=== PATIENT | male | born 1945 | race Caucasian/White ===

== ENCOUNTER 2023-11-29 03:49 | Outpatient (CLI) | payer MEDICARE, SELFPAY ==
[2023-11-29 11:06] LABS: Abs Immature Grans 0.02 10^3/uL (0.0-0.06); Absolute Basophil Count 0.05 10^3/uL (0.0-0.2); Absolute Eosinophil Count 0.12 10^3/uL (0.0-0.7); Absolute Lymphocyte Count 0.72 10^3/uL (1.2-3.4); Absolute Monocyte Count 0.74 10^3/uL (0.1-0.8); Absolute Neutrophil Count 5.09 10^3/uL (1.2-6.7); Basophils % 0.7 %; Eosinophils % 1.8 %; HCT 37.2 % (40.0-50.0); Immature Grans % 0.3 %; Lymphocytes % 10.7 %; MCH 31.5 pg (27.0-33.0); MCHC 32.3 % (32.0-36.0); MCV 98 fL (80-95); MPV 8.7 fL (8.0-11.0); Neutrophils % 75.5 %; Platelet Count 246 10^3/uL (130-400); RBC 3.81 10^6/uL (4.36-5.78); RDW 15.1 % (11.8-14.1); RDW-SD 54.3 fL; WBC 6.74 10^3/uL (4.4-10.8)
[2023-11-29 11:35] LABS: ALT 49 U/L (16-63); AST 32 U/L (15-37); Albumin 3.1 g/dL (3.4-5.0); Alkaline Phosphatase 169 U/L (46-116); Anion Gap 6.2 mmol/L (3-11); BUN 15 mg/dL (7-18); Bilirubin, Total 0.57 mg/dL (0.2-1.0); CO2 31.8 mmol/L (21.0-32.0); CREATININE 0.8 mg/dL (0.70-1.30); Chloride 101 mmol/L (98-107); Estimated GFR 89.47 (mL/min/1.73m2); FREE T4 1.06 ng/dL (0.76-1.46); Glucose 100 mg/dL (74-106); Magnesium 1.6 mg/dL (1.8-2.4); Potassium 3.9 mmol/L (3.5-5.1); Sodium 139 mmol/L (136-145); TSH 0.67 uIU/Ml (0.36-3.74); Total Protein 7.3 g/dL (6.4-8.2)
== END 2023-11-29 03:50 | disposition home or self-care (01) ==
LOC: LBO 03:49
PROVIDERS: Visit Provider Internal Medicine Medical Oncology
DX: Z79.899 Other long term (current) drug therapy (principal); C34.91 Malignant neoplasm of unspecified part of right bronchus or lung
CPT/HCPCS: 36415; 80053; 83735; 84439; 84443; 85025

== ENCOUNTER 2023-12-20 03:13 | Outpatient (CLI) | payer MEDICARE, SELFPAY ==
[2023-12-20 08:57] LABS: Abs Immature Grans 0.04 10^3/uL (0.0-0.06); Absolute Basophil Count 0.07 10^3/uL (0.0-0.2); Absolute Eosinophil Count 0.07 10^3/uL (0.0-0.7); Absolute Lymphocyte Count 0.78 10^3/uL (1.2-3.4); Absolute Neutrophil Count 5.27 10^3/uL (1.2-6.7); HCT 36.6 % (40.0-50.0); HGB 11.5 g/dL (13.5-17.5); Immature Grans % 0.5 %; Lymphocytes % 10.6 %; MCH 31.9 pg (27.0-33.0); MCHC 31.4 % (32.0-36.0); MCV 102 fL (80-95); MPV 8.3 fL (8.0-11.0); Neutrophils % 71.9 %; Platelet Count 275 10^3/uL (130-400); RDW 16.1 % (11.8-14.1); RDW-SD 60.3 fL; WBC 7.33 10^3/uL (4.4-10.8)
[2023-12-20 09:18] LABS: ALT 33 U/L (16-63); AST 29 U/L (15-37); Albumin 3.1 g/dL (3.4-5.0); Alkaline Phosphatase 204 U/L (46-116); BUN 7 mg/dL (7-18); Bilirubin, Total 0.52 mg/dL (0.2-1.0); CREATININE 0.8 mg/dL (0.70-1.30); Calcium 9.2 mg/dL (8.5-10.1); Chloride 102 mmol/L (98-107); Estimated GFR 89.47 (mL/min/1.73m2); FREE T4 0.94 ng/dL (0.76-1.46); Glucose 99 mg/dL (74-106); Potassium 4.3 mmol/L (3.5-5.1); Sodium 139 mmol/L (136-145); TSH 1.54 uIU/Ml (0.36-3.74); Total Protein 7.5 g/dL (6.4-8.2)
== END 2023-12-20 03:14 | disposition home or self-care (01) ==
LOC: LBO 03:14
PROVIDERS: Visit Provider Internal Medicine Medical Oncology
DX: Z79.899 Other long term (current) drug therapy (principal)
CPT/HCPCS: 36415; 80053; 83735; 84439; 84443; 85025

== ENCOUNTER 2024-01-12 08:59 | Outpatient (CLI) | payer MEDICARE, SELFPAY ==
[2024-01-12 08:06] LABS: Abs Immature Grans 0.03 10^3/uL (0.0-0.06); Absolute Basophil Count 0.06 10^3/uL (0.0-0.2); Absolute Eosinophil Count 0.06 10^3/uL (0.0-0.7); Absolute Lymphocyte Count 0.66 10^3/uL (1.2-3.4); Absolute Neutrophil Count 5.72 10^3/uL (1.2-6.7); Basophils % 0.8 %; Eosinophils % 0.8 %; HCT 31.4 % (40.0-50.0); HGB 10.3 g/dL (13.5-17.5); Immature Grans % 0.4 %; Lymphocytes % 8.8 %; MCH 32.8 pg (27.0-33.0); MCHC 32.8 % (32.0-36.0); MCV 100 fL (80-95); MPV 8.5 fL (8.0-11.0); Monocytes % 13.3 %; Neutrophils % 75.9 %; Platelet Count 258 10^3/uL (130-400); RBC 3.14 10^6/uL (4.36-5.78); RDW 16.8 % (11.8-14.1); RDW-SD 60.7 fL; WBC 7.53 10^3/uL (4.4-10.8)
[2024-01-12 08:38] LABS: ALT 23 U/L (16-63); AST 23 U/L (15-37); Albumin 3.1 g/dL (3.4-5.0); Alkaline Phosphatase 193 U/L (46-116); BUN 19 mg/dL (7-18); Bilirubin, Total 0.72 mg/dL (0.2-1.0); CREATININE 0.9 mg/dL (0.70-1.30); Calcium 8.9 mg/dL (8.5-10.1); Chloride 102 mmol/L (98-107); Estimated GFR 86.34 (mL/min/1.73m2); FREE T4 1.15 ng/dL (0.76-1.46); Glucose 113 mg/dL (74-106); Magnesium 1.8 mg/dL (1.8-2.4); Potassium 4.3 mmol/L (3.5-5.1); Sodium 139 mmol/L (136-145); TSH 1.03 uIU/Ml (0.36-3.74); Total Protein 7.6 g/dL (6.4-8.2)
== END 2024-01-12 09:00 | disposition home or self-care (01) ==
LOC: LBO 09:02
PROVIDERS: Visit Provider Nurse Practitioner Family
DX: Z79.899 Other long term (current) drug therapy (principal); C34.91 Malignant neoplasm of unspecified part of right bronchus or lung
CPT/HCPCS: 36415; 80053; 83735; 84439; 84443; 85025

== ENCOUNTER 2024-02-14 02:59 | Outpatient (CLI) | payer MEDICARE, SELFPAY ==
[2024-02-14 08:54] LABS: Abs Immature Grans 0.01 10^3/uL (0.0-0.06); Absolute Basophil Count 0.02 10^3/uL (0.0-0.2); Absolute Eosinophil Count 0.06 10^3/uL (0.0-0.7); Absolute Lymphocyte Count 0.54 10^3/uL (1.2-3.4); Absolute Monocyte Count 0.68 10^3/uL (0.1-0.8); Absolute Neutrophil Count 3.63 10^3/uL (1.2-6.7); Basophils % 0.4 %; Eosinophils % 1.2 %; HCT 30.8 % (40.0-50.0); HGB 9.8 g/dL (13.5-17.5); Immature Grans % 0.2 %; Lymphocytes % 10.9 %; MCH 33.7 pg (27.0-33.0); MCHC 31.8 % (32.0-36.0); MCV 106 fL (80-95); MPV 8.6 fL (8.0-11.0); Monocytes % 13.8 %; Neutrophils % 73.5 %; Platelet Count 210 10^3/uL (130-400); RBC 2.91 10^6/uL (4.36-5.78); RDW 15.6 % (11.8-14.1); RDW-SD 60.8 fL; WBC 4.94 10^3/uL (4.4-10.8)
[2024-02-14 09:09] LABS: ALT 24 U/L (16-63); AST 26 U/L (15-37); Albumin 2.8 g/dL (3.4-5.0); Alkaline Phosphatase 192 U/L (46-116); Anion Gap 4.8 mmol/L (3-11); BUN 20 mg/dL (7-18); Bilirubin, Total 0.39 mg/dL (0.2-1.0); CO2 31.2 mmol/L (21.0-32.0); CREATININE 0.8 mg/dL (0.70-1.30); Calcium 8.8 mg/dL (8.5-10.1); Chloride 99 mmol/L (98-107); Estimated GFR 89.47 (mL/min/1.73m2); Glucose 89 mg/dL (74-106); Magnesium 1.7 mg/dL (1.8-2.4); Potassium 4.2 mmol/L (3.5-5.1); Sodium 135 mmol/L (136-145); Total Protein 7.4 g/dL (6.4-8.2)
== END 2024-02-14 03:00 | disposition home or self-care (01) ==
LOC: LBO 02:59
PROVIDERS: Visit Provider Internal Medicine Medical Oncology
DX: C34.91 Malignant neoplasm of unspecified part of right bronchus or lung (principal)
CPT/HCPCS: 36415; 80053; 83735; 85025

== ENCOUNTER 2024-03-06 02:13 | Outpatient (CLI) | payer MEDICARE, SELFPAY ==
[2024-03-06 12:24] LABS: Abs Immature Grans 0.01 10^3/uL (0.0-0.06); Absolute Basophil Count 0.02 10^3/uL (0.0-0.2); Absolute Eosinophil Count 0.08 10^3/uL (0.0-0.7); Absolute Lymphocyte Count 0.58 10^3/uL (1.2-3.4); Basophils % 0.4 %; Eosinophils % 1.6 %; HCT 30.9 % (40.0-50.0); HGB 10.1 g/dL (13.5-17.5); Immature Grans % 0.2 %; Lymphocytes % 11.9 %; MCH 34.1 pg (27.0-33.0); MCHC 32.7 % (32.0-36.0); MCV 104 fL (80-95); MPV 8.5 fL (8.0-11.0); Monocytes % 12.3 %; Neutrophils % 73.6 %; Platelet Count 220 10^3/uL (130-400); RBC 2.96 10^6/uL (4.36-5.78); RDW-SD 53.5 fL; WBC 4.89 10^3/uL (4.4-10.8)
[2024-03-06 12:51] LABS: ALT 19 U/L (16-63); AST 22 U/L (15-37); Albumin 2.7 g/dL (3.4-5.0); Alkaline Phosphatase 194 U/L (46-116); Anion Gap 3.8 mmol/L (3-11); BUN 16 mg/dL (7-18); Bilirubin, Total 0.51 mg/dL (0.2-1.0); CO2 31.2 mmol/L (21.0-32.0); Calcium 8.5 mg/dL (8.5-10.1); Chloride 98 mmol/L (98-107); Estimated GFR 76.08 (mL/min/1.73m2); FREE T4 1.01 ng/dL (0.76-1.46); Glucose 128 mg/dL (74-106); Magnesium 1.7 mg/dL (1.8-2.4); Potassium 5.1 mmol/L (3.5-5.1); Sodium 133 mmol/L (136-145); TSH 1.34 uIU/mL (0.36-3.74); Total Protein 7.7 g/dL (6.4-8.2)
== END 2024-03-06 02:14 | disposition home or self-care (01) ==
LOC: LBO 02:14
PROVIDERS: Visit Provider Internal Medicine Medical Oncology
DX: Z79.899 Other long term (current) drug therapy (principal); C34.91 Malignant neoplasm of unspecified part of right bronchus or lung
CPT/HCPCS: 36415; 80053; 83735; 84439; 84443; 85025

== ENCOUNTER 2024-03-21 02:11 | Outpatient (CLI) | payer MEDICARE, SELFPAY ==
[2024-03-21 09:35] LABS: Abs Immature Grans 0.03 10^3/uL (0.0-0.06); Absolute Basophil Count 0.04 10^3/uL (0.0-0.2); Absolute Eosinophil Count 0.07 10^3/uL (0.0-0.7); Absolute Lymphocyte Count 0.53 10^3/uL (1.2-3.4); Absolute Neutrophil Count 6.72 10^3/uL (1.2-6.7); Basophils % 0.5 %; Eosinophils % 0.8 %; HCT 32.2 % (40.0-50.0); HGB 10.6 g/dL (13.5-17.5); Immature Grans % 0.4 %; Lymphocytes % 6.4 %; MCH 34.1 pg (27.0-33.0); MCHC 32.9 % (32.0-36.0); MCV 104 fL (80-95); MPV 8.7 fL (8.0-11.0); Monocytes % 10.9 %; Platelet Count 296 10^3/uL (130-400); RBC 3.11 10^6/uL (4.36-5.78); RDW 14.1 % (11.8-14.1); RDW-SD 53.1 fL; WBC 8.29 10^3/uL (4.4-10.8)
[2024-03-21 09:59] LABS: ALT 20 U/L (16-63); AST 24 U/L (15-37); Albumin 2.9 g/dL (3.4-5.0); Alkaline Phosphatase 211 U/L (46-116); Anion Gap 4.6 mmol/L (3-11); BUN 19 mg/dL (7-18); Bilirubin, Total 0.63 mg/dL (0.2-1.0); CO2 31.4 mmol/L (21.0-32.0); Calcium 9.2 mg/dL (8.5-10.1); Chloride 102 mmol/L (98-107); Estimated GFR 76.08 (mL/min/1.73m2); Glucose 119 mg/dL (74-106); Magnesium 1.8 mg/dL (1.8-2.4); Potassium 4.5 mmol/L (3.5-5.1); Sodium 138 mmol/L (136-145); TSH 0.61 uIU/mL (0.36-3.74); Total Protein 7.7 g/dL (6.4-8.2)
== END 2024-03-21 02:12 | disposition home or self-care (01) ==
LOC: LBO 02:11
PROVIDERS: Visit Provider Internal Medicine Medical Oncology
DX: Z79.899 Other long term (current) drug therapy (principal); C34.91 Malignant neoplasm of unspecified part of right bronchus or lung
CPT/HCPCS: 36415; 80053; 83735; 84439; 84443; 85025

== ENCOUNTER 2024-04-10 02:28 | Outpatient (CLI) | payer MEDICARE, SELFPAY ==
[2024-04-10 12:39] LABS: Abs Immature Grans 0.03 10^3/uL (0.0-0.06); Absolute Basophil Count 0.05 10^3/uL (0.0-0.2); Absolute Eosinophil Count 0.09 10^3/uL (0.0-0.7); Absolute Lymphocyte Count 0.55 10^3/uL (1.2-3.4); Absolute Monocyte Count 0.79 10^3/uL (0.1-0.8); Absolute Neutrophil Count 4.27 10^3/uL (1.2-6.7); Basophils % 0.9 %; Eosinophils % 1.6 %; HCT 34.3 % (40.0-50.0); HGB 10.9 g/dL (13.5-17.5); Immature Grans % 0.5 %; Lymphocytes % 9.5 %; MCH 33.5 pg (27.0-33.0); MCHC 31.8 % (32.0-36.0); MCV 106 fL (80-95); MPV 8.1 fL (8.0-11.0); Monocytes % 13.7 %; Neutrophils % 73.8 %; Platelet Count 303 10^3/uL (130-400); RBC 3.25 10^6/uL (4.36-5.78); RDW 13.5 % (11.8-14.1); RDW-SD 53.1 fL; WBC 5.78 10^3/uL (4.4-10.8)
[2024-04-10 12:57] LABS: ALT 18 U/L (16-63); AST 28 U/L (15-37); Albumin 3.1 g/dL (3.4-5.0); Alkaline Phosphatase 199 U/L (46-116); Anion Gap 4.4 mmol/L (3-11); BUN 17 mg/dL (7-18); Bilirubin, Total 0.67 mg/dL (0.2-1.0); CO2 31.6 mmol/L (21.0-32.0); Calcium 8.9 mg/dL (8.5-10.1); Chloride 99 mmol/L (98-107); Estimated GFR 76.08 (mL/min/1.73m2); Glucose 114 mg/dL (74-106); Magnesium 1.9 mg/dL (1.8-2.4); Potassium 4.8 mmol/L (3.5-5.1); Sodium 135 mmol/L (136-145); Total Protein 7.9 g/dL (6.4-8.2)
[2024-04-10 13:10] LABS: FREE T4 1.02 ng/dL (0.76-1.46); TSH 1.05 uIU/mL (0.36-3.74)
== END 2024-04-10 02:29 | disposition home or self-care (01) ==
LOC: LBO 02:28
PROVIDERS: Nurse Practitioner Family; Visit Provider Internal Medicine Medical Oncology
DX: C34.91 Malignant neoplasm of unspecified part of right bronchus or lung
CPT/HCPCS: 36415; 80053; 83735; 84439; 84443; 85025

== ENCOUNTER 2024-05-02 03:00 | Outpatient (CLI) | payer MEDICARE, SELFPAY ==
[2024-05-02 10:07] LABS: Abs Immature Grans 0.02 10^3/uL (0.0-0.06); Absolute Basophil Count 0.03 10^3/uL (0.0-0.2); Absolute Lymphocyte Count 0.64 10^3/uL (1.2-3.4); Absolute Monocyte Count 0.83 10^3/uL (0.1-0.8); Absolute Neutrophil Count 5.62 10^3/uL (1.2-6.7); Basophils % 0.4 %; Eosinophils % 1.4 %; HGB 10.2 g/dL (13.5-17.5); Immature Grans % 0.3 %; Lymphocytes % 8.8 %; MCH 32.6 pg (27.0-33.0); MCHC 31.9 % (32.0-36.0); MCV 102 fL (80-95); MPV 8.2 fL (8.0-11.0); Monocytes % 11.5 %; Neutrophils % 77.6 %; Platelet Count 260 10^3/uL (130-400); RBC 3.13 10^6/uL (4.36-5.78); RDW 13.6 % (11.8-14.1); RDW-SD 50.7 fL; WBC 7.24 10^3/uL (4.4-10.8)
[2024-05-02 10:40] LABS: ALT 16 U/L (16-63); AST 22 U/L (15-37); Albumin 2.8 g/dL (3.4-5.0); Alkaline Phosphatase 179 U/L (46-116); Anion Gap 5.7 mmol/L (3-11); BUN 16 mg/dL (7-18); Bilirubin, Total 0.54 mg/dL (0.2-1.0); CO2 31.3 mmol/L (21.0-32.0); Calcium 8.4 mg/dL (8.5-10.1); Chloride 101 mmol/L (98-107); Estimated GFR 76.08 (mL/min/1.73m2); Glucose 123 mg/dL (74-106); Magnesium 1.8 mg/dL (1.8-2.4); Potassium 4.8 mmol/L (3.5-5.1); Sodium 138 mmol/L (136-145); TSH 0.83 uIU/mL (0.36-3.74); Total Protein 7.3 g/dL (6.4-8.2)
== END 2024-05-02 03:01 | disposition home or self-care (01) ==
LOC: LBO 03:00
PROVIDERS: Visit Provider Internal Medicine Medical Oncology
DX: Z79.899 Other long term (current) drug therapy (principal); C34.91 Malignant neoplasm of unspecified part of right bronchus or lung
CPT/HCPCS: 36415; 80053; 83735; 84439; 84443; 85025

== ENCOUNTER 2024-05-23 02:58 | Outpatient (CLI) | payer MEDICARE, SELFPAY ==
[2024-05-23 10:00] LABS: Abs Immature Grans 0.05 10^3/uL (0.0-0.06); Absolute Basophil Count 0.02 10^3/uL (0.0-0.2); Absolute Eosinophil Count 0.03 10^3/uL (0.0-0.7); Absolute Lymphocyte Count 0.48 10^3/uL (1.2-3.4); Basophils % 0.2 %; Eosinophils % 0.3 %; HCT 36.2 % (40.0-50.0); HGB 11.7 g/dL (13.5-17.5); Immature Grans % 0.5 %; Lymphocytes % 4.4 %; MCH 32.5 pg (27.0-33.0); MCHC 32.3 % (32.0-36.0); MCV 101 fL (80-95); MPV 8.2 fL (8.0-11.0); Monocytes % 3.5 %; Neutrophils % 91.1 %; Platelet Count 273 10^3/uL (130-400); RDW 13.9 % (11.8-14.1); RDW-SD 50.6 fL; WBC 10.99 10^3/uL (4.4-10.8)
[2024-05-23 10:02] LABS: Absolute Monocyte Count 0.38 10^3/uL (0.1-0.8); Absolute Neutrophil Count 10.01 10^3/uL (1.2-6.7)
[2024-05-23 10:23] LABS: ALT 24 U/L (16-63); AST 25 U/L (15-37); Alkaline Phosphatase 197 U/L (46-116); Anion Gap 0.8 mmol/L (3-11); BUN 20 mg/dL (7-18); Bilirubin, Total 0.88 mg/dL (0.2-1.0); CO2 36.2 mmol/L (21.0-32.0); CREATININE 1.1 mg/dL (0.70-1.30); Calcium 9.1 mg/dL (8.5-10.1); Chloride 99 mmol/L (98-107); Estimated GFR 67.86 (mL/min/1.73m2); FREE T4 1.12 ng/dL (0.76-1.46); Glucose 120 mg/dL (74-106); Magnesium 1.7 mg/dL (1.8-2.4); Potassium 5.1 mmol/L (3.5-5.1); Sodium 136 mmol/L (136-145); TSH 0.83 uIU/mL (0.36-3.74); Total Protein 7.6 g/dL (6.4-8.2)
[2024-05-23 18:13] LABS: Bilirubin Negative (Negative); Blood Trace-lysed (Negative); Clarity Clear (Clear); Glucose Negative (Negative); Ketones Negative (Negative); Leukocyte Esterase Moderate (Negative); Nitrite Negative (Negative); Urobilinogen 0.2 mg/dL (Up to 0.2)
[2024-05-23 18:24] LABS: Bacteria Moderate HPF (Negative); C & S Indicated? Yes; Casts Negative LPF (Negative); Crystals Negative HPF (Negative); Epithelial Cells Rare HPF (Negative); Mucus Negative (Negative); Other Cells Negative (Negative); RBC 0-2 HPF (0-2); WBC >50 HPF (0-5)
== END 2024-05-23 02:59 | disposition home or self-care (01) ==
LOC: LBO 02:58
PROVIDERS: Visit Provider Internal Medicine Medical Oncology
DX: Z79.899 Other long term (current) drug therapy (principal); C34.91 Malignant neoplasm of unspecified part of right bronchus or lung
CPT/HCPCS: 36415; 80053; 87077; 81003; 81015; 83735; 84439; 84443; 85025; 87086; 87186

== ENCOUNTER 2024-06-20 01:08 | Outpatient (CLI) | payer MEDICARE, SELFPAY ==
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
--- OUTSIDE RECORDS SUMMARY | 2024-06-20 01:23 | XMS_ITS | Encounter Summary ---
Author Organization [place] [address] Care Team Providers Care Registered Veterinary Technician Name Role Phone Kadi Lane Primary Care Provider [phone] Encounter Details Date Type Department Care Team (Late st Contact Info) Description 05/05/2024 12:35 PM EST Ancillary Procedure Radiology Library at [facility] [place] [id number] Landen Goodman MD [address] [place] [id number] Social History Tobacco Use Types Packs/Day Years Used Date Smoking Tobacco: Former Cigarettes 2 32 1 822 - 1347 Smokeless Tobacco: Never Alcohol Use Standard Drinks/Week [...] PM EDT documented as of this encounter Plan of Treatment Upcoming Encounters Date Type Department Care Team (Late st Contact Info) Description 06/20/2024 10:00 AM EST Office Visit Hematology/Oncology at [address] [phone] Lia Barber APRN [address] [place] [address] DR HEMATOLOGY AND ONCOLOGY [place], [place] [address] 06/20/2024 10:30 AM EST Infusion Hematology Oncology at [address] [phone] 07/04/2024 11:00 AM EST Office Visit Hematology/Oncology at [address] [phone] Lia Barber APRN [address] [place] [address] DR HEMATOLOGY AND ONCOLOGY [place] [id number] 07/04/2024 11:30 AM EST Infusion Hematology Oncology at [address] [phone] documented as of this encounter Procedures Procedure Name Priority Date/Time Associated Diagnosis Comments FILM LIBRARY STORAGE ONLY CT CHEST Routine 05/05/2024 12:35 PM EST documented in this encounter Results * Film Library- Storage Only CT Chest (05/05/2024 12:35 PM EST) 05/14/2024 8:35 PM EST Narrative [facility] - 05/14/2024 8:35 PM EST This exam is auto-finalizing. It's purpose is for storage only. Landen Goodman MD IMG FILM LIBRARY ORD ERABLES Performing Organization Address City/State/[facility] Co de Phone Number [place], [place] documented in this encounter Visit Diagnoses Not on filedocumented in this encounter Care Teams Registered Veterinary Technician Relationship Specialty Start Date End Date Kadi Lane PA [address] [place] [address] PCP - General Family Medicine 07/28/16 documented as of this encounter
--- OUTSIDE RECORDS SUMMARY | 2024-06-20 01:23 | XMS_ITS | Encounter Summary ---
[facility] [place] [address] Care Team Providers Care Airline Hostess Name Role Phone Kadi Lane Primary Care Provider [phone] Encounter Details Date Type Department Care Team (Latest Contact Info) Description 05/23/2024 Travel Social History Tobacco Use Types Packs/Day Years Used Date Smoking Tobacco: Former Cigarettes 2 32 1 956 - 1987 Smokeless Tobacco: Never Alcohol Use [...] place to sleep or slept in a snf (including now)? No 08/14/2022 DH IPV Inpatient [...] 10:00 AM EST Office Visit Hematology/Oncology at [address] [phone] Lia Barber [address] HEMATOLOGY AND ONCOLOGY [place], [place] [address] 06/20/2024 10:30 AM EST Infusion Hematology Oncology at [address] [phone] 07/04/2024 11:00 AM EST Office Visit Hematology/Oncology at [address] [phone] HEMATOLOGY AND ONCOLOGY [place], [place] [address] 07/04/2024 11:30 AM EST Infusion Hematology Oncology at [address] [phone] documented as of this encounter Visit Diagnoses Not on filedocumented in this encounter Care Teams Airline Hostess Relationship Specialty Start Date End Date Kadi Lane PA [address] [place] [address] PCP - General Family Medicine 07/28/16 documented as of this encounter
--- OUTSIDE RECORDS SUMMARY | 2024-06-20 01:23 | XMS_ITS | Encounter Summary ---
Author [facility] [place] [address] Care Team Providers Care It Infrastructure Specialist Name Role Phone Kadi Lane Primary Care Provider [phone] Encounter Details Date Type Department Care Team (Latest Contact Info) Description 05/02/2024 Travel Social History Tobacco Use Types Packs/Day [...] place to sleep or slept in a group home (including now)? No 08/14/2022 DH IPV Inpatient [...] 10:00 AM EST Office Visit Hematology/Oncology at [address] [phone] Lia Barber [address] HEMATOLOGY AND ONCOLOGY [place], [place] [address] 06/20/2024 10:30 AM EST Infusion Hematology Oncology at [address] [phone] 07/04/2024 11:00 AM EST Office Visit Hematology/Oncology at [address] [phone] HEMATOLOGY AND ONCOLOGY [place], [place] [address] 07/04/2024 11:30 AM EST Infusion Hematology Oncology at [address] [phone] documented as of this encounter Visit Diagnoses Not on filedocumented in this encounter Care Teams It Infrastructure Specialist Relationship Specialty Start Date End Date Kadi Lane PA [address] [place] [address] PCP - General Family Medicine 07/28/16 documented as of this encounter
--- OUTSIDE RECORDS SUMMARY | 2024-06-20 01:23 | XMS_ITS | Encounter Summary ---
Author Organization [facility] [place] [address] Care Team Providers Care Roll Plugger Name Role Phone Kadi Lane Primary Care Provider [phone] Encounter Details Date Type Department Care Team (Late st Contact Info) Description 05/08/2024 Telephone Hematology Oncology at [address] [phone] Corry Fowler, RN Social History Tobacco Use Types Packs/Day Years Used Date Smoking Tobacco: Former Cigarettes 2 32 1 016 - 1987 Smokeless Tobacco: Never Alcohol Use [...] place to sleep or slept in a nursing home (including now)? No 08/14/2022 DH IPV [...] encounter Miscellaneous Notes * Telephone Encounter - Corry Fowler RN - 05/08/2024 2:22 PM EST Marco Antonio is feeling better now. Nothing was found in the ED. No symptoms now. He will have his PET Wednesday and visit with us on 05/23/24. * Telephone Encounter - Corry Fowler RN - 05/08/2024 2:20 PM EST ----- Message from Stephanie Munoz RN sent at 05/05/2024 11:18 AM EST ----- Regarding: call pt Pt went to [facility] 05/05 for SOB, please call and check on status, thanks! documented in this encounter Plan of Treatment Upcoming Encounters Date Type Department Care Team (Late st Contact Info) Description 06/20/2024 10:00 AM EST Office Visit Hematology/Oncology at [address] [phone] Lia Barber[address] HEMATOLOGY AND ONCOLOGY [place], [place] [address] 06/20/2024 10:30 AM EST Infusion Hematology Oncology at [address] [phone] 07/04/2024 11:00 AM EST Office Visit Hematology/Oncology at [address] [phone] Lia [address] HEMATOLOGY AND ONCOLOGY [place], [place] [id number] 07/04/2024 11:30 AM EST Infusion Hematology Oncology at [address] [phone] documented as of this encounter Visit Diagnoses Not on filedocumented in this encounter Care Teams Roll Plugger Relationship Specialty Start Date End Date Kadi [place] [address] PCP - General Family Medicine 07/28/16 documented as of this encounter
--- OUTSIDE RECORDS SUMMARY | 2024-06-20 01:23 | XMS_ITS | Encounter Summary ---
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 No 08/14/2022 DH IPV Inpatient [...] PM EDT documented as of this encounter Last Filed Vital Signs Vital Sign Reading Time Taken Comments Blood Pressure 130/61 05/02/2024 10:51 AM EST Pulse 61 05/02/2024 10:51 AM EST Temperature 36.6 ??C (97.9 ??F) 05/02/2024 10:[address] Respiratory Rate 17 05/02/2024 10:51 AM EST Oxygen Saturation 98% 05/02/2024 10:51 AM EST Inhaled Oxygen Concentration - - Weight 56.2 kg (124 lb) 05/02/2024 10:51 AM EST Height 168.9 cm (5' 6.5) 05/02/2024 10:51 AM ES T Body Mass Index 19.72 05/02/2024 10:51 AM EST documented in this encounter Progress Notes * Elisabeth Lia A, DEEDEE - 05/02/2024 11:00 AM EST Images from the original note were not included. Thoracic Oncology [facility] [place] [phone] Marco Antonio Xiong is being seen for the evaluation of lung cancer. Assessment & Plan: Marco Antonio Xiong is a 78 y.o. 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 Evaluation at thattime did not identify malignancy and he was treated with abx and close observation but subsequent evaluation showed increasing size of the mass and biopsy ultimately identified squamous cell carcinoma of the lung. A subsequent preoperative stress test showed apical ischemia and diminished ejection fraction of 39%. Based on size he has a T2b stage IIa squamous cell carcinoma without joey involvement and due to cardiac issues he was ultimately treated with stereotactic body radiation 50 Sim in 5 fractions ending 10/19/22. In August 2023 he was noted to have a worsening cough. Therefore further evaluation of radiographically stable adenopathy was pursued with an endobronchial ultrasound on 09/16/2023. This identified recurrent metastatic squamous cell carcinoma in level 4R (TPS 5%), and level 7. Level 4L was uninvolved.Sampling of the pleural fluid identified atypical cells but no clearly malignant cells were identified. PET scan from 10/08/23 identified FDG avid adenopathy in the lower paratracheal, subcarinal, prevascular and bilateral francy. In discussion with radiation oncology given the bilateral disease and overall extent this was not felt to be curable and therefore he was treated with radiation to help palliate his cough and respiratory symptoms. Following palliative radiation (30 Gy in 10 fractions) to the mediastinum he began palliative intent treatment with carboplatin/paclitaxel/pembrolizumab on 11.29.23 with upfront dose reductions. Plan: CT scan from 03/01/24 not compared to the most recent imaging on the read, however on review appears to have continued response to treatment which is reassuring. A PET scan at some point may behelpful in clarifying post-treatment changes with question of active disease. - Paclitaxel was omitted with C3 and he did much better, his neuropathy has resolved, and he would prefer to continue to omit it. - Labs and toxicities assessed and acceptable for ongoing treatment. - RTC in 3 weeks with PET prior, already scheduled for 05/12/24 Lia Barber, DEEDEE 05/02/2024 Medical Oncology & Hematology [facility] CC: ADRIANO Sheriff HPI/Interval History/Subjective: Last seen 04/10/2024 Accompanied by his . Breathing well, did not worsen after immunotherapy. Mild cough that comes and goes, this is unchanged. Occasionally uses guaifenesin with good effect. No fevers No new rashes, changes in breathing, new or different cough, diarrhea. Neuropathy has improved since stopping the taxol Social History/Support Network: Home situation: . Lives 2 hours away. 3 chuildren. 5 grandsons and 2 great grandauhters Employment: Retired. [employer]. Now likes to be outdoorrs fishing. [place]. Tobacco use: Quit in 1986. 2 ppd at the time. [id number] history Alcohol use: uit then as well Drug use: Financial Distress: Social Determinants of Health Financial Resource Strain: Low Risk (08/14/2022) Overall Financial Resource Strain (CARDIA) Difficulty of Paying Living Expenses: Not very hard Food Insecurity: No Food Insecurity (08/14/2022) Hunger Vital Sign Worried About Running Out of Food in the Last Year: Never true Ran Out of Food in the Last Year: Never true Transportation Needs: No Transportation Needs (08/14/2022) PRAPARE - Transportation Lack of Transportation (Medical): No Lack of Transportation (Non-Medical): No Physical Activity: Not on file Housing Stability: Low Risk (08/14/2022) Housing Stability Vital Sign Unable to Pay for Housing in the Last Year: No Number of Places Lived in the Last Year: 1 Unstable Housing in the Last Year: No Intimate Partner Violence: Patient Unable To Answer (08/28/2022) DH IPV Inpatient Questions Prevent Contact with Others: unable to answer (comment required) Feels Threatened by Someone: unable to answer (comment required) Feels Unsafe at Home: unable to answer (comment required) Physical Signs of Abuse Present: Not on file Utilities: Not on file Health Literacy: Not on file service: No Family History: Mother- Dscd Malignant hyperthremia Father- Dscd Cause unknown No known history of lung cancer Family History Problem Relation Age of Onset Malignant Hyperthermia Mother Oncology Overview: Cancer Staging Non-small cell lung cancer Staging form: Lung, AJCC 8th Edition - Clinical: Stage IIA (cT2b, cN0, cM0) - Signed by Rafael Pope MD on 08/12/2022 Presentation: Staging/PreTx Eval: 02.23.[address] Chest without contrast 1. Stable pleural-based mass at the right lung base. 2. Stable moderate right pleural effusion with thick peripheral rind. 3. Stable calcified bilateral pleural plaques, consistent with asbestos related pleural disease. 02.25.22 CT Chest w/o contrast- Bronchoscopy EBUS-TBNA and ashwin bornch The trachea, bilateral mainstem bronchi, and the bilateral segmental bronchi were all visualized and no obvious endobronchial lesions were noted, though there were moderate secretions, primarily in the RLL that were therapeutically aspirated. The bronchoscope was removed. The [employer] robotic systemwas used for pre-procedure planning, including 3D rendering with image post-processing on an independent workstation. The [employer] robotic system was then used for intra- procedure navigation to the RLL nodule. Under radial EBUS and fluoro control TBNA, TBBx and BAL were obtained. The robotic bronchoscope was removed and the EBUS scope inserted. EBUS confirmed the presence of an enlarged node at station 11R, there were no other joey stations with nodes > 5mm. Multiple passes with EBUS TBNA were performed. Following this, hemostasis was confirmed, the procedure was terminated and the bronchoscope was withdrawn. 02.25.22 CT Neck 06.19.22 CT Chest FINDINGS: Pulmonary parenchyma: RIGHT lower lobe pleural-based 5.4 x 3.3 x 4.9 cm peripherally enhancing consolidative mass with regions of central hypodensity may reflect areas of necrosis. The mass contacts the right hemidiaphragm. Bilateral scarring at the bases and the lingula. Unchanged RIGHT upper lobe calcified granuloma. Scattered centrilobular emphysematous disease. Airways: Widely patent. Pleura: Unchanged moderate RIGHT pleural effusion with peripheral enhancement. No LEFT pleural effusion. Bilateral dense pleural plaques, unchanged. Lymph nodes: No lymphadenopathy. No significant CT correlate to FDG avid bilateral hilar lymph nodes from prior PET/CT 07.02.22 PET scan 07.21.22 CT Lung biopsy and thora 08.10.22 MRI Brain - no metastatic disease Pathology: Ashwin Bronch A - Lung, right lower lobe, biopsy: - Benign lung parenchyma and bronchial tissue. 11R- negative for malignancy, lymphocytes identified Pleural fluid (thoracentesis): The sample consists almost entirely of abundant, amorphous/acellular material. No malignant cells are seen. Recommend clinical correlation. 07/21/22 Lung biopsy Tissue: Lung, right lower lobe mass, biopsy Diagnosis: Squamous cell carcinoma Tumor Proportion Score (TPS): % Expression: 5% Surgical Pathology DIAGNOSIS Lung, right lower lobe mass, biopsy: Squamous cell carcinoma 09/16/23 Bronchoscopy EBUS-TBNA ADDENDUM DISCUSSION PD-L1 Immunohistochemistry Study Tissue: Lymph node, 4R (EBUS-guided FNA) Diagnosis: Metastatic squamous cell carcinoma Tumor Proportion Score (TPS): 5% DIAGNOSIS Positive for Malignancy DISCUSSION Metastatic squamous cell carcinoma. Cell block was examined. See note. Note: Molecular Data: NA Treatment Course: 10.19.22 SBRT in 5 fractions 10.08.23 PET scan with recurrence in the mediastinum. . 1. Masslike opacity in the right lower lobe appears less masslike and more fibrotic and atelectatic, compatible with interval radiation. Residual uptake may be related to inflammation or residual disease. This can be reassessed on follow-up. 2. Multiple new FDG-avid lymph nodes in the mediastinum, representing metastatic adenopathy. 11.29.23 Started carboplatin/paclitaxel/pembrolizumab 12.27.23 CT restaging after 2 cycles. Note, outside read does not include comparison. Response noted. 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 Pertinent details are noted above. Pertinent positives and negative from the Review of Systems are as summarized above in the HPI. Physical Exam: Wt Readings from Last 3 Encounters: 05/02/24 56.2 kg (124 lb) 04/10/24 55.9 kg (123 lb 3.2 oz) 03/21/24 55.7 kg (122 lb 12.8 oz) Temp Readings from Last 3 Encounters: 05/02/24 36.6 ??C (97.9 ??F) (Temporal) 04/10/24 36.2 ??C (97.1 ??F) (Temporal) 03/21/24 36.2 ??C (97.1 ??F) (Temporal) BP Readings from Last 3 Encounters: 05/02/24 130/61 04/10/24 133/60 03/21/24 136/82 Pulse Readings from Last 3 Encounters: 05/02/24 61 04/10/24 72 03/21/24 82 Body surface area is 1.62 meters squared. Wt Readings from Last 3 Encounters: 05/02/24 56.2 kg (124 lb) 04/10/24 55.9 kg (123 lb 3.2 oz) 03/21/24 55.7 kg (122 lb 12.8 oz) KPS Score ECOG Grade Definition 90-100 0 Fully active, able to carry on all pre-disease performance without restriction X 70-80 1 Restricted in physically strenuous activity but ambulatory and able to carry out work of a light or sedentary nature, e.g., light house work, office work 50-60 2 Ambulatory and capable of all selfcare but unable to carry out any work activities; up and about more than 50% of waking hours 30-40 3 Capable of only limited selfcare; confined to bed or chair more than 50% of waking hours 10-20 4 Completely disabled; cannot carry on any selfcare; totally confined to bed or chair Constitutional: Oriented to person, place, and time. No distress. Appears well-developed. HENT: Mouth/Throat: No oral exudates or lesions Eyes: No conjunctival icterus. Cardiovascular: Normal rate and regular rhythm. Exam reveals no friction rub. No murmur heard. Pulmonary/Chest: Effort normal. No stridor. No respiratory distress. No wheezes. No rales. Abdominal: Soft. No distension. No tenderness.No rebound. Musculoskeletal: Normal range of motion. No edema. Lymphadenopathy: No cervical adenopathy. Neurological: Alert and oriented to person, place, and time. CN are grossly intact and non-focal. Skin: Skin is warm and dry. No rash noted. No erythema. Psychiatric: Normal mood and affect. Behavior is normal. Thought content normal. Review of Laboratory Data: 05.02.24 WBC 7.24, H/H 10.2/32.0, plt 260,000, ANC 5620, Na 138, K 4.8, Cl 101, CO2 31.3, BUN 16, Creat 1.0,glucose 123, Ca 8.4, amg 1.8, t bili 0.54, AST 22, ALT 16, alk phos 179, t protein 7.3, albumin 2.8, free T4 1.00 04.10.24 White blood cell count 5.78 hemoglobin 10.9 platelet count 303,000 absolute neutrophil count 4.27 Sodium 135 potassium 4.8 chloride 99 BUN 17 creatinine 1.0 which is stable glucose 114 calcium 8.9 magnesium 1.9 total bilirubin 0.67 AST 28 ALT 18 alk phos 1 9 down from 211 albumin 3.1 improved from 2.9 TSH within normal limits at 1.05 Free T41.02 03/21/24 WBC 8.29, platelets 296,000, ANC 6720,hemoglobin 10.6, hematocrit 32.2% NA 138, K+ 4.5, chloride 102, CO2 31.4, BUN 19, creatinine 1.0, glucose 119, calcium 9.2, mag 1.8, T. bili 0.63, AST 24, ALT 20, alk phos 211, T protein 7.7, albumin 2.9, TSH 0.61, free T4 1.10 03/06/24 WBC 4.89, H/H 10.1/30.9, plt 220,000, ANC 3600, Na 133, K 5.1, Cl 98, CO2 31.2, BUN 16, Creat 1.0, glucose 128, Ca 8.5, Mag 1.7, t bili 0.51, AST 22, ALT 19, alk phos 194, t protein 7.7, albumin 2.7,TSH 1.34, Free T4 1.01 02/14/24 WBC 4.94, Hgb 9.8, HCT 30.8, platelets 210,000, ANC 3630, sodium 135, K+ 4.2, CL 99, CO2 31.2, BUN 20, creatinine 0.8, glucose 89, calcium 8.8, magnesium 1.7, T. bili 0.39, AST 26, ALT 24, alk phos 192, total protein 7.4, albumin 2.8 01/12/24 WBC 7.53, H/H 10.3/31.4, plt 258,000, ANC 5720, Na 139, K 4.3, Cl 102, CO2 28.0, BUN 19, Creat 0.9,glucose 113, Ca 8.9, Mag 1.8, t bili 0.72, AST 23, ALT 23, alk phos 193, t protein 7.6, albumin 3.1, TSH 1.03, Free T4 1.15 12/20/2023 Sodium 139 potassium 4.3 chloride 102 BUN 7 creatinine 0.8 glucose 99 calcium 9.2 magnesium 2.0 total bilirubin 0.52 AST 29 ALT 33 alk phos 204 albumin 3.1 which is stable TSH 1.54 Free T40.94 White blood cell count 7.33 hemoglobin 11.5 platelet count 275,000 with an absolute neutrophil count of 5.27 Review of Imaging Data: As above Review of Pathology Data: As above, no new data documented in this encounter Plan of Treatment Upcoming Encounters Date Type Department Care Team (Late st Contact Info) Description 06/20/2024 10:00 AM EST Office Visit Hematology/Oncology at [address] [phone] Lia Barber APRN [address] [place] [address] [place] [address] 06/20/2024 10:30 AM EST Infusion Hematology Oncology at [address] [phone] 07/04/2024 11:00 AM EST Office Visit Hematology/Oncology at [address] [phone] Lia Barber ACID EXTRACTOR [address] [place] [address] DR [place] [address] 07/04/2024 11:30 AM EST Infusion Hematology Oncology at [address] [phone] documented as of this encounter Visit Diagnoses Diagnosis 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
--- OUTSIDE RECORDS SUMMARY | 2024-06-20 01:23 | XMS_ITS | Encounter Summary ---
Author Organization [facility] [address] Care Team Providers Care Energy Analyst Name Role Phone Kadi Lane Primary Care Provider [phone] Encounter Details Date Type Department Care Team (Latest Contact Info) Description 04/10/2024 Travel Social History Tobacco Use Types Packs/Day [...] place to sleep or slept in a long term (including now)? No 08/14/2022 DH IPV Inpatient [...] 10:00 AM EST Office Visit Hematology/Oncology at [address] [phone] Lia Barber [address] HEMATOLOGY AND ONCOLOGY [place], [place] [address] 06/20/2024 10:30 AM EST Infusion Hematology Oncology at [address] [phone] 07/04/2024 11:00 AM EST Office Visit Hematology/Oncology at [address] [phone] HEMATOLOGY AND ONCOLOGY [place], [place] [address] 07/04/2024 11:30 AM EST Infusion Hematology Oncology at [address] [phone] documented as of this encounter Visit Diagnoses Not on filedocumented in this encounter Care Teams Energy Analyst Relationship Specialty Start Date End Date Kadi Lane PA [address] [place] [address] PCP - General Family Medicine 07/28/16 documented as of this encounter
--- OUTSIDE RECORDS SUMMARY | 2024-06-20 01:23 | XMS_ITS ---
[place] [address] Care Team Providers Care Trading Floor Operator Name Role Phone Kadi Lane Primary Care Provider [phone] Active Problems Patient Care Coordination No te Formatting of this note migh t be different from the original. Denita Keating- Nurse in the family!! 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/25/2022 [facility] NON[facility]ALL CELL [facility]G [facility]CER - CARBOplatin / PACLitaxeL / PEMBROLIZUMAB* Plan Start Date:11/29/2023 Plan Provider:Zach Vincent MD Linked Problems High risk medication useNon- small cell cancer of right lung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 Treatment Medications Current Day (Day 1 , Cycle 8 - Planned for 05/23/2024) Next Day (Day 1, Cycle 9 - Planned for 06/13/2024) CARBOplatin (Paraplatin) in 150 mL infusionPACLitaxeL (Taxol) in Non-PVC sodium chloride 0.9% 500 mL infusionpembrolizumab (Keytruda) in sodium chloride 0.9% 100 mL infusion pembrolizumab (Keytruda) 200 mg in sodium chloride 0.9% 108 mL infusion pembrolizumab (Keytruda) 200 mg in sodium chloride 0.9% 108 mL infusion Past Plans ADULT TREATMENT Plan Name Start Date Discontinue Date Treatment Medications Discontinue Reason Plan Provider Cycles [facility] AMB ONC NONSMALL CELL LUNG CANCER - CARBOplatin / PACLitaxeL ALBUMIN-BOUND (ABRAXANE) (100 mg/m2 (Days 1, 8 & 15) every 21 days) / PEMBROLIZUMAB 11/29/19 24 11/29/2023 CARBOplatin (Paraplatin) in 150 mL infusionPACLitaxeL albumin-bound (Abraxane)pembroliz umab (Keytruda) Recon Soln Patient is No Longer Covered by Insurance Zach Vincent MD Treatment not started Radiation Treatments * No radiation treatments are documented for this patient in [facility]. Treatments may have been administered in another system. Lifetime Dose Tracking * Chemical Lifetime Dose Automatic Entry Manual Entr y DLP (Dose Length Product) 770 mGy-cm 770 mGy-cm 0 mGy-cm CTDI (CT Dose Index) Min 23.13 mGy 23.13 mGy 0 m Gy CTDI (CT Dose Index) Max 23.13 mGy 23.13 mGy 0 m Gy
--- OUTSIDE RECORDS SUMMARY | 2024-06-20 01:23 | XMS_ITS | Clinical Summary ---
Author Organization [facility] [place] [address] Care Team Providers Care General Partner Name Role Phone Kadi Lane Primary Care Provider [phone] Allergies No known active allergies Medications Medication Sig Dispensed Refills Start Date End Date Status aspirin EC 81 mg Tablet, Delayed Release (E.C.) Take 81 mg by mouth daily. Active multivitamin (THERAGRAN) Tablet Take 1 tablet by mouth daily. Active nitroGLYcerin (Nitrostat) 0.4 mg Tablet, SublingualIndicatio ns:Chest pain, unspecified type Place 1 tablet under the tongue every 5 minutes as needed for Chest pain. 30 tablet 3 07/07/2022 Active Additional Information Patient not taking.Reported on 11/08/2023 clopidogreL (Plavix) 75 mg tablet Take 1 tablet by mouth daily. 90 tablet 3 08/28/2022 Active benzonatate (Tessalon) 100 mg capsule Take 1 capsule by mouth 3 times daily as needed for Cough. 30 tablet 08/25/2023 Active omeprazole (PriLOSEC) [address] capsule Take 1 capsule by mouth daily. 30 capsule 11 09/01/2023 08/31/2024 Active HYDROcodone-homatro pine (HYCODAN) 5-1.5 mg/5 mL Syrup Take 5 mLs by mouth 4 times daily as needed. 120 mL 10/13/2023 Active atorvastatin (Lipitor) 40 mg tabletIndications:C oronary artery disease, unspecified vessel or lesion type, unspecified whether angina present, unspecified whether tat[place]k or transplanted heart Take 1 tablet by mouth nightly. 90 tablet 3 10/21/2023 Active emollient combination no.111 (REMEDY PHYTOPLEX MOISTURIZER TOP) Apply topically. Phytoplex Remedy Moisturizer: Apply to area of radiation twice a day but no less than 2 hours before a treatment. Active lidocaine (Xylocaine) 2 % Solution Take 5-10 mLs by mouth every 3 hours as needed for Pain. 300 mL 3 11/08/2023 Active prochlorperazine (Compazine) 10 mg tablet Take 1 tablet by mouth every 6 hours as needed for Nausea. 30 tablet 3 11/08/2023 Active morphine 10 mg/5 mL Solution Take 5 mLs by mouth every 4 hours as needed for Pain. 100 mL 11/10/2023 Active Additional Information Patient not taking.Reported on 12/20/2023 metoprolol succinate XL (Toprol-XL) 25 mg ER 24 hr tabletIndications:C hest pain, unspecified type TAKE 1/2 TABLET EVERY DAY 90 tablet 3 11/15/2023 Active albuteroL 90 mcg/actuation inhaler (HFA)Indications:CO PD with exacerbation Inhale 2 puffs into the lungs every 4 hours as needed for Wheezing. Use with Spacer 1 each 1 03/27/2024 Active predniSONE (Deltasone) 20 mg tabletIndications:C OPD with exacerbation Take 1 tablet by mouth daily. 20 tablet 05/15/2024 Active fluconazole (Diflucan) 200 mg tabletIndications:O ral candidiasis Take 1 tablet by mouth daily. 7 tablet 05/23/2024 Active guaiFENesin (Robitussin) 20 mg/mL LiquidIndications:C hronic cough Take 20 mLs by mouth 3 times daily as needed for Cough. 500 mL 05/26/2024 Active Active Problems Patient Care Coordination No te Formatting of this note migh t be different from the original. Denita Keating- Nurse in the family!! 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 Encounters Date Type Department Care Team Description 06/20/2024 10:30 AM EST Infusion Hematology Oncology at [address] [phone] 06/05/2024 Telephone Hematology/Oncolog y at [address] [phone] Stephanie Puckett, RN Follow-up 05/29/2024 Telephone Hematology/Oncolog y at [address] [phone] Stephanie Puckett, RN Breathing Problem 05/26/2024 Telephone Hematology/Oncolog y at [address] [phone] Kate Isaacs RN 05/26/2024 Refill Hematology/Oncolog y at [address] [phone] Lia Barber APRN Chronic cough 05/24/2024 Telephone Hematology/Oncolog y at [address] [phone] Amanda Matthew RN 05/24/2024 Orders Only Hematology/Oncolog y at [address] [place] [address] Lia Barber APRN Acute cystitis without hematuria 05/23/2024 11:00 AM EST Office Visit Hematology/Oncolog y at [address] [place] [address] Lia Barber APRN Oral candidiasis; Increased urinary frequency; Urine leukocytes increased 05/23/2024 Travel 05/16/2024 Refill Hematology/Oncolog y at [address] [phone] Lia Barber APRN COPD with exacerbation 05/15/2024 Orders Only Hematology/Oncolog y at [address] [phone] Lia Barber APRN COPD with exacerbation 05/12/2024 9:41 AM EST - 05/12/2024 11:59 PM EST Hospital Encounter [place] [address] Zach Vincent MD Non-small cell cancer of right lung; 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 Discharge Disposition: Home 05/08/2024 Telephone Hematology Oncology at [address] [phone] Corry Fowler RN 05/05/2024 12:35 PM EST Ancillary Procedure Radiology Library at [facility] [place] [address] Landen Goodman MD 05/05/2024 11:55 AM EST Ancillary Procedure Radiology Library at [facility] [place] [address] Landen Goodman MD 05/05/2024 Interpretation Only Radiology Library at [facility] [place] [address] Landen Goodman MD 05/05/2024 Interpretation Only Radiology Library at [facility] [place] [address] Landen Goodman MD 05/05/2024 Telephone Hematology/Oncolog y at [address] [phone] Stephanie Puckett RN Shortness of Breath 05/02/2024 11:30 AM EST Infusion Hematology Oncology at [address] [phone] High risk medication use; Non-small cell cancer of right lung; 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 05/02/2024 11:00 AM EST Office Visit Hematology/Oncolog y at [address] [phone] Lia Barber APRN Non-small cell cancer of right lung; 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; Chronic cough 05/02/2024 Travel 04/10/2024 2:00 PM EST Infusion Hematology Oncology at [address] [phone] High risk medication use; Non-small cell cancer of right lung; 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 04/10/2024 1:30 PM EST Office Visit Hematology/Oncolog y at [address] [phone] Zach Vincent MD LaRoza, Stephanie A, APRN Non-small cell cancer of right lung; 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 04/10/2024 Travel 03/27/2024 Orders Only Hematology/Oncolog y at [address] [phone] Lia Barber APRN COPD with exacerbation 03/27/2024 Telephone Hematology/Oncolog y at [address] [phone] Corry Fowler RN Shortness of Breath 03/21/2024 11:30 AM EST Infusion Hematology Oncology at [address] [phone] High risk medication use; Non-small cell cancer of right lung; 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 03/21/2024 11:00 AM EST Office Visit Hematology/Oncolog y at [address] [phone] Lia Barber APRN Non-small cell cancer of right lung; 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 Never true 08/15/19 Within the past 12 months, t he [...] place to sleep or slept in a custodial (including now)? No 08/14/2022 DH IPV Inpatient [...] Orientation Straight 10/05/2023 6: 23 PM EDT Last Filed Vital Signs Vital Sign Reading Time Taken Comments Blood Pressure 116/65 05/23/2024 11:06 AM EST Pulse 80 05/23/2024 11:06 AM EST Temperature 36.7 ??C (98 ??F) 05/23/2024 11:06 AM EST Respiratory Rate 18 05/23/2024 11:06 AM EST Oxygen Saturation 97% 05/23/2024 11:06 AM EST Inhaled Oxygen Concentration - - Weight 55.1 kg (121 lb 6.4 oz) 05/23/2024 11:06 AM EST Height 168.9 cm (5' 6.5) 05/23/2024 11:06 AM ES T Body Mass Index 19.3 05/23/2024 11:06 AM EST Plan of Treatment Upcoming Encounters Date Type Department Care Team (Late st Contact Info) Description 06/20/2024 10:00 AM EST Office Visit Hematology/Oncology at [address] [phone] HEMATOLOGY AND ONCOLOGY [place], [place] [phone] 06/20/2024 10:30 AM EST Infusion Hematology Oncology at [address] [phone] 07/04/2024 11:00 AM EST Office Visit Hematology/Oncology at [address] [phone] [address] HEMATOLOGY AND ONCOLOGY [place], [place] [phone] 07/04/2024 11:30 AM EST Infusion Hematology Oncology at [address] [phone] Health Maintenance Due Date Last Done Comments Hepatitis C Screening 11/23/1961 Pneumoccocal Vaccine: 50+ (1 of 2 - PCV) 11/23/1962 Tetanus/Diphtheria/Pertussis Vaccines (1 - Tdap) 11/23 Zoster vaccine (1 of 2) 11/23/1993 Advance Directive 11/23/1998 RSV Vaccine (1 - 1-dose 75+ series) 11/23/2018 Covid-19 Vaccine (1 - season) 2024 Influenza (Flu) vaccine (1 o f 1 - Influenza standard series) 01/16/2024 Lipid Screening Discontinued 07/07/2022 Procedures Procedure Name Priority Date/Time Associated Diagnosis Comments EXTERNAL URINE LAB RESULTS Routine 05/23/2024 11:50 AM EST LAB SCAN 05/23/2024 12:00 AM EST LAB SCAN 05/23/2024 12:00 AM EST LAB SCAN 05/23/2024 12:00 AM EST LAB SCAN 05/23/2024 12:00 AM EST [facility] PET CT SKULL BASE TO MID-THIGH Routine 05/12/2024 11:39 AM EST 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 PET SCAN (SCAN) 05/12/2024 12:00 AM EST FILM LIBRARY STORAGE ONLY CT CHEST Routine 05/05/2024 12:35 PM EST FILM LIBRARY STORAGE ONLY DX CHEST Routine 05/05/2024 11:[address] SCAN (SCAN) 05/05/2024 12:[address] SCAN (SCAN) 05/05/2024 12:00 AM EST LAB SCAN 05/02/2024 12:00 AM EST LAB SCAN 05/02/2024 12:00 AM EST LAB SCAN 04/10/2024 12:00 AM EST LAB SCAN 04/10/2024 12:00 AM EST LAB SCAN 04/10/2024 12:00 AM EST LAB SCAN 04/10/2024 12:00 AM EST LAB SCAN 04/10/2024 12:00 AM EST LAB SCAN 03/21/2024 12:00 AM EST LIPID PANEL (REFLEX DIRECT LDL) Routine 07/07/2022 10:53 AM EST Chest pain, unspecified type from Last 3 Months or Most Recently Relevant to Health Maintenance Results * External Urine Lab Results (05/23/2024 11:50 AM EST) Glucose UA - External normal Protein UA - External negative pH UA - External 7 Blood UA - External trace Ketones UA - External negative Nitrite UA - External negative Leukocytes UA - External ++ 05/23/2024 11:5 0 AM EST Historical Provider EXTERNAL LAB LAURA APARICIO * Scan Doc: Lab (05/23/2024 12:00 AM EST) Only the most recent of12 resultswithin the time period is included. Narrative 05/23/2024 12:00 AM EST Ordered by an unspecified provider. Scanning Provider MEDIA MGR SCAN EXT O RDR/RSLT * NM Back PET CT Skull Base to Mid-thigh (05/12/2024 11:39 AM EST) WORKSTATION ID [id number] RAD Anatomical Region Laterality Modality Positron Emissio n Tomography (PET) Impressions 05/16/2024 1:04 PM EST 1. Decreased size and FDG uptake of right inferior pleural based mass. 2. New complete metabolic and anatomic resolution of mediastinal joey metastases. 3. Increased right multilobar and new left lingular atelectasis and postradiation changes, expected given the interval radiotherapy since September 2023 PET/CT. 4. 4 mm left upper lobe subpleural nodule is not FDG avid, likely inflammatory. Continued attention on follow-up is recommended. 5. Redemonstrated moderate loculated right pleural effusion, chronic and relatively unchanged since 2017 CT chest with associated bilateral calcified pleural plaques consistent with known asbestos related pleural disease. I have personally reviewed the image(s) and the resident's interpretation and agree with the findings, Bipin Christensen DO at 05/16/2024 1:04 PM Thank you for letting us participate in the care of this patient. ??If you are a health care provider and have any questions regarding this report, please contact the number below. ??For patients who have questions please contact the health rn coronary care unit that requested your imaging first. ? 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 Repeat PET/CT, September 2023 with recurrent joey metastases treated with palliative radiation (30 Gy in 10 fractions) to the mediastinum and palliative chemotherapy with carboplatin/paclitaxel/pembrolizumab on 24 TECHNIQUE: Following IV injection of 72-pvccwv-5-deoxyglucose (FDG) a standard uptake of approximately 60 minutes, a noncontrast CT scan followed by a PET scan were acquired from the base of the skull to mid thighs. The noncontrast CT was used for anatomic localization and photon attenuation correction of the PET scan. Blood glucose level: 80 (mg/dL) FDG dose: 10.33 mCi COMPARISON: PET/CT 10/08/2023, 09/17/2022, 07/02/2022 CT chest 05/05/2024, 03/01/2024 FINDINGS: HEAD/NECK: Normal activity in all soft tissue regions of the neck and visualized lower head. No adenopathy. CHEST: Near complete metabolic and anatomic resolution of right upper and lower paratracheal and subcarinal FDG adenopathy from 10/08/2023 PET/CT with small mildly FDG avid subcarinal and right lower paratracheal lymph nodes identified, (axial image 91 and 101). Decreased size and FDG avidity of the inferomedial left lower lung pleural-based mass. Increased FDG avid right lung volume loss and paramediastinal opacities and fibrotic changes consistent with postradiation changes. Previously CT visualized left anterior lingular opacities demonstrate increased FDG uptake and are most consistent with post radiation changes. 4 mm subpleural posterior left upper lobe nodule is not FDG avid (axial image 100) and unchanged compared to CT chest 05/05/2024, increased in size and conspicuity since 10/08/2023 PET/CT, and not seen on remote PET CT 09/17/2022. 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 Stable right pleural effusion compared to 05/05/2024 CT chest. Coronary artery and aortic calcifications. ABDOMEN/PELVIS: Normal activity in all soft tissue regions. No adenopathy. Moderate atherosclerosis of the nonaneurysmal abdominal aorta and its branches. SKELETON/EXTREMITIES: Normal activity in all regions of the axial and visualized appendicular skeleton. 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 Repeat PET/CT, September 2023 with recurrent joey metastases treated withpalliative radiation (30 Gy in 10 fractions) to the mediastinum and palliativechemotherapy with carboplatin/paclitaxel/pembrolizumab on 11.29.23 TECHNIQUE: Following IV injection of 47-nmycab-3-deoxyglucose (FDG) astandard uptake of approximately 60 minutes, a noncontrast CT scan followed by aPET scan were acquired from the base of the skull to mid thighs. The noncontrast CTwas used for anatomic localization and photon attenuation correction of thePET scan. Blood glucose level: 80 (mg/dL) FDG dose: 10.33 mCi COMPARISON: PET/CT 10/08/2023, 09/17/2022, 07/02/2022 CT chest 05/05/2024, 03/01/2024 FINDINGS: HEAD/NECK: Normal activity in all soft tissue regions of the neck and visualizedlower head. No adenopathy. CHEST: Near complete metabolic and anatomic resolution of right upper and lower paratracheal and subcarinal FDG adenopathy from 10/08/2023 PET/CT withsmall mildly FDG avid subcarinal and right lower paratracheal lymph nodesidentified, (axial image 91 and 101). Decreased size and FDG avidity of theinferomedial left lower lung pleural-based mass. Increased FDG avid right lung volumeloss and paramediastinal opacities and fibrotic changes consistent withpostradiation changes. 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 Stable right pleural effusion compared to 05/05/2024 CT chest. Coronary artery and aortic calcifications. ABDOMEN/PELVIS: Normal activity in all soft tissue regions. No adenopathy. Moderate atherosclerosis of the nonaneurysmal abdominal aorta and its branches. SKELETON/EXTREMITIES: Normal activity in all regions of the axial and visualized appendicular skeleton. IMPRESSION 1. Decreased size and FDG uptake of right inferior pleural based mass. 2. New complete metabolic and anatomic resolution of mediastinal joey metastases. 3. Increased right multilobar and new left lingular atelectasis and postradiation changes, expected given the interval radiotherapy since September2023 PET/CT. 4. 4 mm left upper lobe subpleural nodule is not FDG avid, likelyinflammatory. Continued attention on follow-up is recommended. 5. Redemonstrated moderate loculated right pleural effusion, chronic and relatively unchanged since 2017 CT chest with associated bilateralcalcified pleural plaques consistent with known asbestos related pleural disease. I have personally reviewed the image(s) and the resident's interpretationand agree with the findings, Bipin Christensen DO at 05/16/2024 1:04 PM Thank you for letting us participate in the care of this patient. If youare a health care provider and have any questions regarding this report,please contact the number below. For patients who have questions please contactthe health rn coronary care unit that requested your imaging first. Zach Vincent MD [facility] [place] * Scan Doc: PET Scan (05/12/2024 12:00 AM EST) Anatomical Region Laterality Modality Other Narrative 05/12/2024 12:00 AM EST Ordered by an unspecified provider. Scanning Provider MEDIA MGR SCAN EXT O RDR/RSLT * Film Library- Storage Only CT Chest (05/05/2024 12:35 PM EST) 05/14/2024 8:35 PM EST Narrative [facility] - 05/14/2024 8:35 PM EST This exam is auto-finalizing. It's purpose is for storage only. Landen Goodman MD [facility] FILM LIBRARY ORD ERABLES [place], [place] * Film Library- Storage Only DX Chest (05/05/2024 11:55 AM EST) 05/14/2024 8:35 PM EST Narrative RAD - 05/14/2024 8:35 PM EST This exam is auto-finalizing. It's purpose is for storage only. Landen Goodman MD IMG FILM LIBRARY ORD ERABLES NEVAEH Arauz * Scan Doc: CT Scan (05/05/2024 12:00 AM EST) Only the most recent of2 resultswithin the time period is included. Anatomical Region Laterality Modality Other Narrative 05/05/2024 12:00 AM EST Ordered by an unspecified provider. Scanning Provider MEDIA MGR SCAN EXT O RDR/RSLT * Lipid Panel (Reflex Direct LDL) (07/07/2022 10:53 AM EST) Cholesterol, Total 160 mg/dL [facility] Comment: Lower Risk: <200 mg/dL Average Risk: 200-239 mg/dL Higher Risk: >mu=481 mg/dL Triglyceride 182 mg/dL [facility] Comment: Average Risk/Lower Risk: <150 mg/dL Borderline High Risk: 150-199 mg/dL High Risk: 200-499 mg/dL Very High Risk: >iq=675 mg/dL HDL Cholesterol 34 mg/dL [facility] Comment: Males: ?? Higher Risk: <40 mg/dL Females: ?? Higher Risk: <50 mg/dL LDL Cholesterol 90 mg/dL [facility] Comment: Lowest Risk: <100 mg/dL Lower Risk: 100-129 mg/dL Borderline High Risk: 130-159 mg/dL High Risk: 160-189 mg/dL Very High Risk: >kv=958 mg/dL Cholesterol/HDL Ratio 4.7 ratio [facility] Lipid Interpretation See Note [facility] Comment: Lipid management should be guided by a patient? s ASCVD risk, goals and preferences. ACC/AHA Guidelines recommend high intensity statin if clinical ASCVD or LDL greater than or equal to 190 mg/dL. [email or web address]-DTY-Ruqncgfry Adults aged 40-75 with LDL 70-189 mg/dL should have their 10 year ASCVD risk estimated with the ACC/AHA ASCVD risk band saw operator http://tools.acc.org/WBMUZ-Rntn-Icnplftki/ Statin should be discussed if risk greater than or equal to 7.5% in non-diabetics. With diabetes, moderate intensity statin is recommended if risk less than 7.5%, high intensity if risk greater than or equal to 7.5%. Annual lipid monitoring on statins is not necessary. Evaluate secondary causes of Triglycerides greater than 500 mg/dL or LDL greater than 190 mg/dL: See table 6 of ACC/AHA Guideline. Lifestyle modification is a critical component of ASCVD risk reduction. Blood 07/07/2022 10:5 3 AM EST 07/07/2022 11:05 AM EST Narrative Resulting Agency Comment Spec In Lab Isaac Ledbetter MD CHEMISTRY ORDERABLES [facility] [address] from Last 3 Months or Most Recently Relevant to Health Maintenance Advance Directives * Attempt Cardiopulmonary Resuscitation - Inpatient (Latest Code Status on File) Date Activated Date Inactivated Comments 08/28/2022 2:31 PM 08/29/2022 12:05 PM Question Answer Comments Code Status decision made by: Patient * Attempt Cardiopulmonary Resuscitation - Inpatient Date Activated Date Inactivated Comments 08/28/2022 11:28 AM 08/28/2022 2:31 PM Question Answer Comments Code Status decision made by: Patient * Attempt Cardiopulmonary Resuscitation - Inpatient Date Activated Date Inactivated Comments 07/21/2022 3:25 PM 07/23/2022 2:59 PM Question Answer Comments Code Status decision made by: Patient * Attempt Cardiopulmonary Resuscitation - Inpatient Date Activated Date Inactivated Comments 07/21/2022 9:37 AM 07/21/2022 2:56 PM Question Answer Comments Code Status decision made by: Patient * Attempt Cardiopulmonary Resuscitation - Inpatient Date Activated Date Inactivated Comments 02/25/2022 6:47 PM 02/27/2022 11:14 AM Question Answer Comments Code Status decision made by: Patient Care Teams General Partner Relationship Specialty Start Date End Date Kadi Lane [place] [address] [place] [address] PCP - General Family Medicine 07/28/16
--- OUTSIDE RECORDS SUMMARY | 2024-06-20 01:23 | XMS_ITS | Continuity of Care Document ---
Author Organization [facility] Address [address] [place] [phone] Care Team Providers Care Home Assessment Nurse Name Role Phone ALISON PALACIOS Primary Care Physician Encounter LTTL_DE FIN NBR [id number] Date(s): 05/28/23 - 05/28/[address] [phone] Discharge Disposition: Home or Self Care Attending Physician: Jacob Slater MD, FACC, FACP, FASNC, FASE, FSCCT Admitting Physician: Jacob Slater MD, FACC, FACP, FASNC, FASE, FSCCT Referring Physician: Jacob Slater MD, FACC, FACP, FASNC, FASE, FSCCT Allergies, Adverse Reactions, Alerts No Known Medication Allergies Vital Signs Most recent to oldest [Reference Range]: 1 Weight 64 kg (05/27/23 12:20 PM) Weight Dosing 64.000 kg (05/27/23 12:20 PM) Height 168 cm (05/27/23 12:20 PM) Patient Care team information Care Team Personnel Name: ALISON PALACIOS Position: No Access Member Role: Primary Care Physician Address: Address: [address] [place] [id number] Care Team Related Persons Name: YOLY BERMAN
--- OUTSIDE RECORDS SUMMARY | 2024-06-20 01:23 | XMS_ITS | Encounter Summary ---
Author Organization [facility] [place] [address] Care Team Providers Care Parts And Service Manager Name Role Phone Kadi Lane Primary Care Provider [phone] Reason for Visit * Reason Onset Date Comments Shortness of Breath 05/05/2024 Encounter Details Date Type Department Care Team (Late st Contact Info) Description 05/05/2024 Telephone Hematology/Oncology at [address] [phone] Stephanie Puckett, RN Shortness of Breath Social History Tobacco Use Types Packs/Day Years Used Date Smoking Tobacco: Former Cigarettes 2 32 1 846 - 8607 Smokeless Tobacco: Never Alcohol Use Standard Drinks/Week [...] place to sleep or slept in a mcc (including now)? No 08/14/2022 DH IPV Inpatient [...] encounter Miscellaneous Notes * Telephone Encounter - Stephanie Puckett RN - 05/05/2024 11:07 AM EST Reason for Call: Shortness of Breath Past medical history which may be related to reason for call: Pt with NSCLC, on pembrolizumab, lastgiven on Wednesday05/02/24 Nursing Assessment: Yesterday developed new onset SOB. This has continued into today. He hasn't hadthis before. He denies fever, cough, or any other symptoms. He takes a daily baby aspirin. Disposition: go to local ED ([facility]) for evaluation; r/o PE or pneumonitis Worsening Symptoms: NA, going to ED now, report called Patient care advice summary and review: will follow up with pt disposition at ED later today or Wednesday documented in this encounter Plan of Treatment Upcoming Encounters Date Type Department Care Team (Late st Contact Info) Description 06/20/2024 10:00 AM EST Office Visit Hematology/Oncology at [address] [phone] [place] [address] 06/20/2024 10:30 AM EST Infusion Hematology Oncology at [address] [phone] 07/04/2024 11:00 AM EST Office Visit Hematology/Oncology at [address] [phone] Lia [address] [place] [address] 07/04/2024 11:30 AM EST Infusion Hematology Oncology at [address] [phone] documented as of this encounter Visit Diagnoses Not on filedocumented in this encounter Care Teams Parts And Service Manager Relationship Specialty Start Date End Date Kadi Lane PA [facility] [place] [address] PCP - General Family Medicine 07/28/16 documented as of this encounter
--- OUTSIDE RECORDS SUMMARY | 2024-06-20 01:23 | XMS_ITS | Encounter Summary ---
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 Zach Vincent MD [facility] DR [place] [address] St Hem Onc Infusion [address] [place] [phone] Referral ID Status Reason Start Date Expiration Date V isits Requested Visits Authorized [id number] Authorized 11/29/2023 11/28/2024 99 99 Encounter Details Date Type Department Care Team (Late st Contact Info) Description 06/20/2024 10:30 AM EST Infusion Hematology Oncology at [address] [phone] Social History Tobacco Use Types Packs/Day Years Used Date Smoking Tobacco: Former Cigarettes 2 32 1 676 - 1987 Smokeless Tobacco: Never Alcohol Use [...] place to sleep or slept in a senior care (including now)? No 08/14/2022 DH IPV Inpatient [...] Encounters Date Type Department Care Team (Late Contact Info) Description 06/20/2024 10:00 AM EST Office Visit Hematology/Oncology at [address] [phone] [address] HEMATOLOGY AND ONCOLOGY [place], [place] [phone] 07/04/2024 11:00 AM EST Office Visit Hematology/Oncology at [address] [phone] [address] HEMATOLOGY AND ONCOLOGY [place], [place] [phone] 07/04/2024 11:30 AM EST Infusion Hematology Oncology at [address] [phone] documented as of this encounter Visit Diagnoses Not on filedocumented in this encounter Care Teams Railroad Maintenance Clerk Relationship Specialty Start Date End Date Kadi Lane PA [facility] [place] [address] PCP - General Family Medicine 07/28/16 documented as of this encounter
--- OUTSIDE RECORDS SUMMARY | 2024-06-20 01:23 | XMS_ITS | Encounter Summary ---
Author Organization [facility] [place] [address] Care Team Providers Care Independent Consultant Name Role Phone Kadi Lane Primary Care Provider [phone] Encounter Details Date Type Department Care Team (Late st Contact Info) Description 05/24/2024 Telephone Hematology/Oncology at [address] [phone] Amanda Matthew RN Social History Tobacco Use Types Packs/Day Years Used Date Smoking Tobacco: Former Cigarettes 2 32 1 996 - 1987 Smokeless Tobacco: Never Alcohol Use [...] place to sleep or slept in a mcfp (including now)? No 08/14/2022 DH IPV Inpatient [...] encounter Miscellaneous Notes * Telephone Encounter - Amanda Matthew RN - 05/24/2024 11:34 AM EST UA came back reviewed with Jeremiah Barber APRN. Bactrim ordered. Left VM letting them know the new script was sent to [facility] and asked that theycall back to let us know that they got the VM. documented in this encounter Plan of Treatment Upcoming Encounters Date Type Department Care Team (Late st Contact Info) Description 06/20/2024 10:00 AM EST Office Visit Hematology/Oncology at [address] [phone] Lia Barber APRN [address] [place] [address] [place] [address] 06/20/2024 10:30 AM EST Infusion Hematology Oncology at [address] [phone] 07/04/2024 11:00 AM EST Office Visit Hematology/Oncology at [address] [phone] Lia Barber, [address] HEMATOLOGY AND ONCOLOGY [place], [place] [id number] 07/04/2024 11:30 AM EST Infusion Hematology Oncology at [address] [phone] documented as of this encounter Visit Diagnoses Not on filedocumented in this encounter Care Teams Independent Consultant Relationship Specialty Start Date End Date Kadi Lane PA [facility] [place] [address] PCP - General Family Medicine 07/28/16 documented as of this encounter
--- OUTSIDE RECORDS SUMMARY | 2024-06-20 01:23 | XMS_ITS | Encounter Summary ---
Author Organization [facility] [place] [address] Care Team Providers Care Lining Printer Name Role Phone Kadi Lane Primary Care Provider [phone] Encounter Details Date Type Department Care Team (Late st Contact Info) Description 05/23/2024 11:00 AM EST Office Visit Hematology/Oncology at [address] [phone] Lia Barber APRN [address] [place] [address] DR HEMATOLOGY [place] [address] Oral candidiasis; Increased urinary frequency; Urine leukocytes increased Social History Tobacco Use Types Packs/Day Years Used Date Smoking Tobacco: Former Cigarettes 2 32 1 306 - 0696 Smokeless Tobacco: Never Alcohol Use Standard Drinks/Week [...] place to sleep or slept in a fpc (including now)? No 08/14/2022 DH IPV Inpatient [...] Mass Index 19.3 05/23/2024 11:06 AM EST documented in this encounter Patient Instructions * Patient Instructions* Lia Barber APRN - 05/23/2024 11:00 AM EST Overall, your PET scan results were good, showing the cancer is continuing to improve. Increase prednisone to 2 tablets (40mg) daily, for one week. The nurse will call you next Wednesday tosee if the breathing and cough are improved, and we will be able to lower the dose at that time. Take early AM. Start fluconazole for thrush (sore throat/white coating in mouth). Take 1 tablet daily for one week. Wait for my phone call regarding urine testing. Return to clinic in 3 weeks. documented in this encounter Progress Notes * Lia Barber APRN - 05/23/2024 11:00 AM EST Images from the original note were not included. Thoracic Oncology [facility] [place] [place] [address] [phone] Marco Antonio Xiong is being seen for [...] effusion (though effusion has been present since 2017) and right lung mass as detailed below. [...] on 11.29.23 with upfront dose reductions. Plan: PET scan done 05.12.24 primarily shows continued response to therapy, however some increase in atelectasis, likely post-treatment changes. 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 - It is very difficult to know if Marco Antonio' shortness of breath is related to the pembrolizumab infusions or his baseline lung disease. We worry a bit that there won't be much improvement here. I am going to increase his prednisone to 40mg x 1 week and have the nurses check in with him, with the hopesthat we can start tapering then. - Fluconazole x 1 week for his thrush - UA shows concern for UTI, culture pending. Will start Bactrim for 7 days, this may change based on culture results. - Continue to omit paclitaxel per patient preference, for side effect management. Lia Barber, MEASUREMENT SPECIALIST 05/23/2024 Medical Oncology & Hematology [facility] CC: ADRIANO Sheriff HPI/Interval History/Subjective: Last seen 05/02/2024 Accompanied by his . After his most recent treatment he experienced increase SOB. He presented to the ER in [place] where his tells me they didn't find anything. We then resumed prednisone at 20mg per day. They tell me his breathing really isn't much better. Cough remains as well, only helped with the robitussin, they did not notice improvement on the prednisone at the current dose. Cough is not productive. He tells me he's feeling more fatigued, could easily sleep at any point in the day. Sleeping poorlyat night, however, because he is up to pee at least 10 times per night - this is a significant increase above his baseline. No burning or foul odor noted. Mentions a very sore throat. No fevers No new rashes, no diarrhea. Neuropathy has improved since stopping the taxol Social History/Support Network: Home situation: . Lives 2 hours away. 3 chuildren. 5 grandsons and 2 great grandauhters Employment: Retired. [employer]. Now likes to be outdoorrs fishing. [place]. Tobacco use: Quit in 1986. 2 ppd at the time. 65-glfx-xelj history Alcohol use: uit then as well [...] Partner Violence: Patient Unable To Answer (08/28/2022) IPV Inpatient Questions Prevent Contact with Others: [...] therapeutically aspirated. The bronchoscope was removed. The ShoutEm robotic systemwas used for pre-procedure planning, including 3D rendering with image post-processing on an independent workstation. The ShoutEm robotic system was then used for intra- [...] nodes from prior PET/CT 07.02.[address] Lung biopsy and thora 08.10.22 MRI [...] read does not include comparison. Response noted. 03.06.24 05.12.24 PET scan IMPRESSION 1. Decreased size and FDG uptake [...] pleural effusion, chronic and relatively unchanged since 2016 CT chest with associated bilateral calcified pleural plaques consistent with known asbestos related pleural disease. 01/12/2024 9:54 AM 01/12/2024 10:31 AM 02/14/2024 11:09 AM 02/14/2024 11:54 AM 03/21/2024 12:22 PM 04/10/2024 2:52 PM 05/02/2024 12:10 PM ONCBCN ONCOLOGY (AMB) Day, Cycle Day 1, Cycle 3 Day 1, Cycle 4 Day 1, Cycle 5 Day 1, Cycle 6 Day 1, Cycle 7 CARBOplatin (Paraplatin) IV 326 mg 347 mg pembrolizumab 25 mg/mL (Keytruda) IV 200 mg 200 mg 200 mg 200 mg 200 [...] Exam: Wt Readings from Last 3 Encounters: 05/23/24 55.1 kg (121 lb 6.4 oz) 05/02/24 56.2 kg (124 lb) 04/10/24 55.9 kg (123 lb 3.2 oz) Temp Readings from Last 3 Encounters: 05/23/24 36.7 ??C (98 ??F) (Temporal) 05/02/24 36.6 ??C (97.9 ??F) (Temporal) 04/10/24 36.2 ??C (97.1 ??F) (Temporal) BP Readings from Last 3 Encounters: 05/23/24 116/65 05/02/24 130/61 04/10/24 133/60 Pulse Readings from Last 3 Encounters: 05/23/24 80 05/02/24 61 04/10/24 72 Body surface area is 1.61 meters squared. Wt Readings from Last 3 Encounters: 05/23/24 55.1 kg (121 lb 6.4 oz) 05/02/24 56.2 kg (124 lb) 04/10/24 55.9 kg (123 lb 3.2 oz) KPS Score ECOG Grade Definition 90-100 [...] selfcare; totally confined to bed or chair Physical Exam Constitutional: General: Not in acute distress. Appearance: Normal appearance. Normal weight. Not ill-appearing, toxic-appearing or diaphoretic. HENT: Head: Atraumatic. Eyes: General: No conjunctival icterus. Right eye: No discharge. Left eye: No discharge. Conjunctiva/sclera: Conjunctivae normal. Pulmonary: Effort: Pulmonary effort is normal. Neurological: General: No focal deficit present. Mental Status: Alert and oriented to person, place, and time. Mental status is at baseline. Psychiatric: Mood and Affect: Mood normal. Behavior: Behavior normal. Thought Content: Thought content normal. Judgment: Judgment normal. Oral exam notes white plaque extending over entire tongue, pain with swallowing, plaque does not resolve with scraping. Review of Laboratory Data: 1.. WBC 10.99, H/H 11.7/36.2, plt 273,000, ANC [address], Na 136, K 5.1, Cl 99, CO2 36.2, BUN 20, Creat 1.1, glucose 120, Ca 9.1, Mag 1.7, t bili 0.88, AST 25, ALT 24, alk phos 197, t protein 7.6, albumin 3.0, TSH 0.83, Free T4 1.12 12. WBC 7.24, H/H 10.2/32.0, plt 260,000, ANC [...] 10:00 AM EST Office Visit Hematology/Oncology at [address] [phone] Lia Barber MEASUREMENT SPECIALIST [address] [place] [address] DR HEMATOLOGY AND ONCOLOGY [place], [place] [phone] 06/20/2024 10:30 AM EST Infusion Hematology Oncology at [address] [phone] 07/04/2024 11:00 AM EST Office Visit Hematology/Oncology at [address] [phone] [address] HEMATOLOGY AND ONCOLOGY [place], [place] [phone] 07/04/2024 11:30 AM EST Infusion Hematology Oncology at [address] [phone] Scheduled Orders Name Type Priority Associated Diagnoses Orde r Schedule POCT urine dipstick Point of Care Testing Routine Increased urinary frequency Ordered: 05/23/2024 Urinalysis with reflex Culture Lab Routine Increased urinary frequency Urine leukocytes increased Expected: 05/23/2024 (Approximate), Expires: 07/21/2024 documented as of this encounter Procedures Procedure Name Priority Date/Time Associated Diagnosis Comments EXTERNAL URINE LAB RESULTS Routine 05/23/2024 11:50 AM EST documented in this encounter Results * External Urine Lab Results (05/23/2024 11:50 AM EST) Glucose UA - External normal Protein UA - External negative pH UA - External 7 Blood UA - External trace Ketones UA - External negative Nitrite UA - External negative Leukocytes UA - External ++ 05/23/2024 11:5 0 AM EST Historical Provider EXTERNAL LAB LAURA APARICIO documented in this encounter Visit Diagnoses Diagnosis Oral candidiasis Candidiasis of mouth Increased urinary frequency Urinary frequency Urine leukocytes increased Other nonspecific finding on examination of urine documented in this encounter Care Teams Lining Printer Relationship Specialty Start Date End Date Kadi Lane PA [facility] [place] [address] PCP - General Family Medicine 07/28/16 documented as of this encounter
--- OUTSIDE RECORDS SUMMARY | 2024-06-20 01:23 | XMS_ITS | Encounter Summary ---
Author Organization [facility] [place] [address] Care Team Providers Care Automatic Steel Tie Adjuster Name Role Phone Kadi Lane Primary Care Provider [phone] Reason for Visit * Reason Onset Date Comments Medication Refill 05/16/2024 Encounter Details Date Type Department Care Team (Late st Contact Info) Description 05/16/2024 Refill Hematology/Oncology at [address] [phone] [address] [place] [address] COPD with exacerbation Social History Tobacco Use Types Packs/Day Years Used Date Smoking Tobacco: Former Cigarettes 2 32 1 176 - 1796 Smokeless Tobacco: Never Alcohol Use Standard Drinks/Week [...] 10:00 AM EST Office Visit Hematology/Oncology at [address] [phone] Lia Barber APRN [address] [place] [address] DR HEMATOLOGY AND ONCOLOGY [place], [place] [phone] 06/20/2024 10:30 AM EST Infusion Hematology Oncology at [address] [phone] 07/04/2024 11:00 AM EST Office Visit Hematology/Oncology at [address] [phone] Lia Barber APRN [address] [place] [address] DR HEMATOLOGY AND ONCOLOGY [place], [place] [id number] 07/04/2024 11:30 AM EST Infusion Hematology Oncology at [address] [phone] documented as of this encounter Visit Diagnoses Diagnosis COPD with exacerbation Obstructive chronic bronchitis with exacerbation documented in this encounter Care Teams Automatic Steel Tie Adjuster Relationship Specialty Start Date End Date Kadi Lane PA [address] [place] [address] PCP - General Family Medicine 07/28/16 documented as of this encounter
--- OUTSIDE RECORDS SUMMARY | 2024-06-20 01:23 | XMS_ITS | Encounter Summary ---
Author Organization [facility] [place] [address] Care Team Providers Care Pit Manager Name Role Phone Kadi Lane Primary Care Provider [phone] Reason for Visit * Reason Onset Date Comments Breathing Problem 05/29/2024 Encounter Details Date Type Department Care Team (Late st Contact Info) Description 05/29/2024 Telephone Hematology/Oncology at [address] [phone] Stephanie Puckett RN Breathing Problem Social History Tobacco Use Types Packs/Day Years Used Date Smoking Tobacco: Former Cigarettes 2 32 1 096 - 1987 Smokeless Tobacco: Never Alcohol Use [...] place to sleep or slept in a fdc (including now)? No 08/14/2022 DH IPV Inpatient [...] Telephone Encounter - Stephanie Puckett RN - 05/29/2024 9:48 AM EST Called and spoke with Marco Antonio Xiong's spouse Bhavna who reports pt's breathing is no better, he continues on 40 mg of prednisone daily. They feel this is not urgent and said last time they went to ED they didn't do anything. She mentioned he had fluid around lung seen on last scan and askingif ordering thoracentesis would be helpful. Reviewed with providers who advised amount of fluid in unchanged since 2017 and thoracentesis would likely not be helpful. Marco Antonio is scheduled to see fitter's assistant at [facility] on 06/15 and advised to call and see about getting in sooner. She will do this. He will stay on 40 mg prednisone daily and we will call them next week to check in. Also advised to c all back if symptoms worsen. ----- Message from Katt Vo sent at 05/29/2024 8:22 AM EST ----- Amanda called on Th or Fri to check in with Bhavna to see how Marco Antonio was doing. Bhavna stated that he was not doing better and asked to have a nurse call him back. [phone] documented in this encounter Plan of Treatment Upcoming Encounters Date Type Department Care Team (Late st Contact Info) Description 06/20/2024 10:00 AM EST Office Visit Hematology/Oncology at [address] [phone] [address] [place] [address] 06/20/2024 10:30 AM EST Infusion Hematology Oncology at [address] [phone] 07/04/2024 11:00 AM EST Office Visit Hematology/Oncology at [address] [phone] [address] [place] [address] 07/04/2024 11:30 AM EST Infusion Hematology Oncology at [address] [phone] documented as of this encounter Visit Diagnoses Not on filedocumented in this encounter Care Teams Pit Manager Relationship Specialty Start Date End Date Kadi Lane PA [address] [place] [address] PCP - General Family Medicine 07/28/16 documented as of this encounter
--- OUTSIDE RECORDS SUMMARY | 2024-06-20 01:23 | XMS_ITS | Encounter Summary ---
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 Zach Vincent MD [facility] DR [place] [address] St Hem Onc Infusion [address] [place] [phone] Referral ID Status Reason Start Date Expiration Date V isits Requested Visits Authorized [id number] Authorized 11/29/2023 11/28/2024 99 99 Encounter Details Date Type Department Care Team (Late st Contact Info) Description 04/10/2024 2:00 PM EST Infusion Hematology Oncology at [address] [phone] High risk medication use; Non-small cell cancer of right lung; 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 No 08/14/2022 DH IPV Inpatient [...] PM EDT documented as of this encounter Progress Notes * Aminata Celaya RN - 04/10/2024 2:00 PM EST INFUSION THERAPY ADMINISTRATION NOTES DIAGNOSIS: NSCLC CYCLE #: Cycle 6, Day 1 - Pembrolizumab REASON FOR VISIT: To receive Immunotherapy/Chemotherapy SUBJECTIVE: Marco Antonio (Jose A-LAKISHA) offers no complaints. He is accompanied by his . OBJECTIVE: VSS. Weight is up today. LAB DATA: WBC - 5.78, H/H - 10.9/34.3, Plt Ct - 303, ANC - 4.27, Lytes wnl, BUN/Cr - 17/1.0, TSH/Free T4 - 1.05/1.02, MG ++ - 1.9 IV ACCESS: PIV Pre administration: Chemotherapy orders independently verified for drug name, route, and dosage per patient's height, weight and BSA by Aminata Celaya, SOREN and Staff Pharmacist(s). REACTIONS (DESCRIPTION, TIME, INTERVENTION AND EFFECTIVENESS) none ASSESSMENT: Marco Antonio was awake, alert and tolerated treatment well. PIV discontinued prior to dismissal. PLAN: Return to clinic as scheduled. documented in this encounter Plan of Treatment Upcoming Encounters Date Type Department Care Team (Late st Contact Info) Description 06/20/2024 10:00 AM EST Office Visit Hematology/Oncology at [address] [phone] Lia Barber EQUIPMENT OPERATION INSTRUCTOR [address] [place] [place] [address] DR HEMATOLOGY AND ONCOLOGY [place], [place] [id number] 06/20/2024 10:30 AM EST Infusion Hematology Oncology at [address] [phone] 07/04/2024 11:00 AM EST Office Visit Hematology/Oncology at [address] [phone] Lia Barber [address] HEMATOLOGY AND ONCOLOGY [place], [place] [phone] 07/04/2024 11:30 AM EST Infusion Hematology Oncology at [address] [phone] documented as of this encounter Visit Diagnoses Diagnosis High risk medication use Encounter for long-term (current) use of other medications 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 Is this drug being given as an outpatient? Yes New Bag 04/10/2024 2:52 PM EST 200 mg 216 mL/hr documented in this encounter Care Teams General Accountant Relationship Specialty Start Date End Date Kadi Lane PA [address] [place] [address] PCP - General Family Medicine 07/28/16 documented as of this encounter
--- OUTSIDE RECORDS SUMMARY | 2024-06-20 01:23 | XMS_ITS | Encounter Summary ---
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 Procedures NM Lacey PET CT Skull Base to Mid-thigh Zach Vincent MD [facility] DR [place] [address] [place] [address] Referral ID Status Reason Start Date Expiration Date V isits Requested Visits Authorized [id number] Closed Specialty Service Requested 04/10/2024 10/08/2025 1 1 Reason for Visit * Diagnostic Test (Routine) - Closed Specialty Diagnoses / Procedures Referred By Contac t Referred To Contact Radiology Diagnoses 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 Procedures NM Lacey PET CT Skull Base to Mid-thigh Zach Vincent MD [facility] DR [place] [address] [facility] [place] [address] Referral ID Status Reason Start Date Expiration Date V isits Requested Visits Authorized [id number] Closed Specialty Service Requested 04/10/2024 10/08/2025 1 1 Encounter Details Date Type Department Care Team (Late st Contact Info) Description 05/12/2024 9:41 AM EST - 05/12/2024 11:59 PM EST Hospital Encounter [place] [phone] Zach Vincent MD [facility] DR [place] [address] Non-small cell cancer of right lung; 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 No 08/14/2022 DH IPV Inpatient [...] PM EDT documented as of this encounter Medications at Time of Discharge Medication Sig Dispensed Refills Start Date End Date albuteroL 90 mcg/actuation inhaler (HFA)Indications:COPD with exacerbation Inhale 2 puffs into the lungs every 4 hours as needed for Wheezing. Use with Spacer 1 each 1 03/27/2024 metoprolol succinate XL (Toprol-XL) 25 mg ER 24 hr tabletIndications:Chest pain, unspecified type TAKE 1/2 TABLET EVERY DAY 90 tablet 3 11/15/2023 morphine 10 mg/5 mL Solution Take 5 mLs by mouth every 4 hours as needed for Pain. 100 mL 11/10/2023 lidocaine (Xylocaine) 2 % Solution Take 5-10 mLs by mouth every 3 hours as needed for Pain. 300 mL 3 11/08/2023 prochlorperazine (Compazine) 10 mg tablet Take 1 tablet by mouth every 6 hours as needed for Nausea. 30 tablet 3 11/08/2023 emollient combination no.111 (REMEDY PHYTOPLEX MOISTURIZER TOP) Apply topically. Phytoplex Remedy Moisturizer: Apply to area of radiation twice a day but no less than 2 hours before a treatment. atorvastatin (Lipitor) 40 mg tabletIndications:Coron chantale artery disease, unspecified vessel or lesion type, unspecified whether angina present, unspecified whether nightmute or transplanted heart Take 1 tablet by mouth nightly. 90 tablet 3 10/21/2023 HYDROcodone-homatropine (HYCODAN) 5-1.5 mg/5 mL Syrup Take 5 mLs by mouth 4 times daily as needed. 120 mL 10/13/2023 omeprazole (PriLOSEC) [address] capsule Take 1 capsule by mouth daily. 30 capsule 11 09/01/2023 08/31/2024 benzonatate (Tessalon) 100 mg capsule Take 1 capsule by mouth 3 times daily as needed for Cough. 30 tablet 08/25/2023 clopidogreL (Plavix) 75 mg tablet Take 1 tablet by mouth daily. 90 tablet 3 08/28/2022 nitroGLYcerin (Nitrostat) 0.4 mg Tablet, SublingualIndications:C hest pain, unspecified type Place 1 tablet under the tongue every 5 minutes as needed for Chest pain. 30 tablet 3 07/07/2022 multivitamin (THERAGRAN) Tablet Take 1 tablet by mouth daily. aspirin EC 81 mg Tablet, Delayed Release (E.C.) Take 81 mg by mouth daily. guaiFENesin (Robitussin) 20 mg/mL LiquidIndications:Chron ic cough Take 20 mLs by mouth 3 times daily as needed for Cough. 500 mL 05/02/2024 05/26/2024 documented as of this encounter Plan of Treatment Upcoming Encounters Date Type Department Care Team (Late st Contact Info) Description 06/20/2024 10:00 AM EST Office Visit Hematology/Oncology at [address] [phone] Lia Barber APRN [address] [place] [address] DR HEMATOLOGY AND ONCOLOGY [place], [place] [phone] 06/20/2024 10:30 AM EST Infusion Hematology Oncology at [address] [phone] 07/04/2024 11:00 AM EST Office Visit Hematology/Oncology at [address] [phone] Lia Barber, OPENING MACHINE CLEANER [address] [place] [address] DR HEMATOLOGY [place] [address] 07/04/2024 11:30 AM EST Infusion Hematology Oncology at [address] [phone] documented as of this encounter Procedures Procedure Name Priority Date/Time Associated Diagnosis Comments NM LACEY PET CT SKULL BASE TO MID-THIGH Routine 05/12/2024 11:39 AM EST 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 ??If you are a health care provider and have any questions regarding this report, please contact the number below. ??For patients who have questions please contact the health chiropractic care that requested your imaging first. ? Electronically signed by: Bipin Christensen DO, [facility] ([phone]), at 05/16/2024 1:04 PM Narrative 05/16/2024 1:04 PM EST EXAMINATION: [facility] PET CT SKULL BASE TO MID-THIGH [...] mediastinum and palliative chemotherapy with carboplatin/paclitaxel/pembrolizumab on 11.29.23 TECHNIQUE: Following IV injection of 03-eaqjqx-2-deoxyglucose (FDG) a standard uptake of approximately 60 [...] visualized appendicular skeleton. 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 Repeat PET/CT, September 2023 with recurrent joey metastases treated withpalliative radiation (30 Gy in 10 fractions) to the mediastinum and palliativechemotherapy with carboplatin/paclitaxel/pembrolizumab on 11.29.23 TECHNIQUE: Following IV injection of 74-yntwhr-4-deoxyglucose (FDG) astandard uptake of approximately 60 minutes, [...] lobe nodule is not FDG avid (axial [id number]) and unchanged compared to CT chest 05/05/2024, [...] patients who have questions please contactthe health chiropractic care that requested your imaging first. 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 Secondary and unspecified malignant neoplasm of lymph nodes of multiple sites documented in this encounter Administered Medications Inactive Administered Medications - up to 3 most recent administrations Medication Order MAR Action Action Date Dose Rate Site fludeoxyglucose (F-18) FDG injection 0-20 mCi 0-20 mCi, Intravenous, ONCE PRN, 1 dose, Starting on Wed05/12/24 at 0950, Until Wed05/12/24 at 0940, Per Protocol, Radiology Contrast, Routine Given 05/12/2024 9:40 AM EST 10.33 mCi Right Arm documented in this encounter Care Teams Etl Analyst Developer Relationship Specialty Start Date End Date Kadi Lane [place] [address] PCP - General Family Medicine 07/28/16 documented as of this encounter
--- OUTSIDE RECORDS SUMMARY | 2024-06-20 01:23 | XMS_ITS | Encounter Summary ---
Author Organization [facility] [place] [address] Care Team Providers Care Pet Training Instructor Name Role Phone Kadi Lane Primary Care Provider [phone] Encounter Details Date Type Department Care Team (Late st Contact Info) Description 05/05/2024 Interpretation Only Radiology Library at [facility] [place] [phone] Landen Goodman MD [address] [place] [address] Social History Tobacco Use Types Packs/Day Years Used Date Smoking Tobacco: Former Cigarettes 2 32 1 426 - 1577 Smokeless Tobacco: Never Alcohol Use Standard Drinks/Week [...] place to sleep or slept in a skilled nursing (including now)? No 08/14/2022 DH IPV Inpatient [...] 10:00 AM EST Office Visit Hematology/Oncology at [address] [phone] Lia Barber APRN [address] [place] [address] DR HEMATOLOGY AND ONCOLOGY [place], [place] [address] 06/20/2024 10:30 AM EST Infusion Hematology Oncology at [address] [phone] 07/04/2024 11:00 AM EST Office Visit Hematology/Oncology at [address] [phone] Lia Barber APRN [address] [place] [address] DR HEMATOLOGY AND ONCOLOGY [place], [place] [phone] 07/04/2024 11:30 AM EST Infusion Hematology Oncology at [address] [phone] documented as of this encounter Procedures Procedure Name Priority Date/Time Associated Diagnosis Comments FILM LIBRARY STORAGE ONLY DX CHEST Routine 05/05/2024 11:55 AM EST documented in this encounter Results * Film Library- Storage Only DX Chest (05/05/2024 11:55 AM EST) 05/14/2024 8:35 PM EST Narrative RAD - 05/14/2024 8:35 PM EST This exam is auto-finalizing. It's purpose is for storage only. Landen Goodman MD G FILM LIBRARY ORD ERABLES [place], [place] documented in this encounter Visit Diagnoses Not on filedocumented in this encounter Care Teams Pet Training Instructor Relationship Specialty Start Date End Date Kadi Lane PA [address] [place] [address] PCP - General Family Medicine 07/28/16 documented as of this encounter
--- OUTSIDE RECORDS SUMMARY | 2024-06-20 01:23 | XMS_ITS | Encounter Summary ---
[facility] [place] [address] Care Team Providers Care Medical Voucher Clerk Name Role Phone Kadi Lane Primary Care Provider Reason for Visit * Reason Onset Date Comments Medication Refill 05/26/2024 Encounter Details Date Type Department Care Team (Late st Contact Info) Description 05/26/2024 Refill Hematology/Oncology at [address] [phone] Lia Barber [address] H[place]AT[place] [address] Chronic cough Social History Tobacco Use Types Packs/Day Years Used Date Smoking Tobacco: Former Cigarettes 2 32 1 416 - 1605 Smokeless Tobacco: Never Alcohol Use Standard Drinks/Week [...] the money to buy more. Never true 03/31/20 23 Within the past 12 months, t [...] place to sleep or slept in a detention (including now)? No 08/14/2022 DH IPV Inpatient [...] encounter Miscellaneous Notes * Telephone Encounter - Linnette Croft RN - 05/26/2024 11:01 AM EST Received prescription refill request via [facility] request for the following medication: Requested Prescriptions Pending Prescriptions Disp Refills guaiFENesin (Robitussin) 20 mg/mL Liquid 500 mL 0 Sig: Take 20 mLs by mouth 3 times daily as needed for Cough. Review of chart suggests that this is an appropriate refill request. Prescription pended and marcia Barber APRN for review and approval, if agreed. documented in this encounter Plan of Treatment Upcoming Encounters Date Type Department Care Team (Late st Contact Info) Description 06/20/2024 10:00 AM EST Office Visit Hematology/Oncology at [address] [phone] Lia Barber, [address] HEMATOLOGY [place] [address] 06/20/2024 10:30 AM EST Infusion Hematology Oncology at [address] [phone] 07/04/2024 11:00 AM EST Office Visit Hematology/Oncology at [address] [phone] HEMATOLOGY [place] [address] 07/04/2024 11:30 AM EST Infusion Hematology Oncology at [address] [phone] documented as of this encounter Visit Diagnoses Diagnosis Chronic cough Cough documented in this encounter Care Teams Medical Voucher Clerk Relationship Specialty Start Date End Date Kadi Lane PA [address] [place] [address] PCP - General Family Medicine 07/28/16 documented as of this encounter
--- OUTSIDE RECORDS SUMMARY | 2024-06-20 01:23 | XMS_ITS | Encounter Summary ---
Author Organization [facility] [place] [address] Care Team Providers Care Tape Cutter Name Role Phone Kadi Lane Primary Care Provider [phone] Encounter Details Date Type Department Care Team (Late st Contact Info) Description 05/24/2024 Orders Only Hematology/Oncology at [address] [phone] Lia Barber [address] [place] [address] Acute cystitis without hematuria Social History Tobacco Use Types Packs/Day Years Used Date Smoking Tobacco: Former Cigarettes 2 32 1 926 - 1987 Smokeless Tobacco: Never Alcohol Use [...] place to sleep or slept in a half-way (including now)? No 08/14/2022 DH IPV Inpatient [...] 10:00 AM EST Office Visit Hematology/Oncology at [address] [phone] Lia Barber APRN [address] [place] [address] DR [place] [address] 06/20/2024 10:30 AM EST Infusion Hematology Oncology at [address] [phone] 07/04/2024 11:00 AM EST Office Visit Hematology/Oncology at [address] [phone] Lia Barber APRN [address] [place] [address] DR HEMATOLOGY AND ONCOLOGY [place], [place] [phone] 07/04/2024 11:30 AM EST Infusion Hematology Oncology at [address] [phone] documented as of this encounter Visit Diagnoses Diagnosis Acute cystitis without hematuria Acute cystitis documented in this encounter Care Teams Tape Cutter Relationship Specialty Start Date End Date Kadi Lane PA [facility] [address] [address] PCP - General Family Medicine 07/28/16 documented as of this encounter
--- OUTSIDE RECORDS SUMMARY | 2024-06-20 01:23 | XMS_ITS | Encounter Summary ---
Author Organization [facility] [place] [address] Care Team Providers Care Gear Coding Machine Operator Name Role Phone Kadi Lane Primary Care Provider [phone] Encounter Details Date Type Department Care Team (Late st Contact Info) Description 05/05/2024 11:55 AM EST Ancillary Procedure Radiology Library [place] [facility] [place] [phone] Landen Goodman MD [address] [place] [address] Social History Tobacco Use Types Packs/Day Years Used Date Smoking Tobacco: Former Cigarettes 2 32 1 474 - 2917 Smokeless Tobacco: Never Alcohol Use Standard Drinks/Week [...] place to sleep or slept in a correction (including now)? No 08/14/2022 DH IPV Inpatient [...] 10:00 AM EST Office Visit Hematology/Oncology at [address] [phone] Lia Barber APRN [address] [place] [address] DR HEMATOLOGY AND ONCOLOGY [place], [place] [address] 06/20/2024 10:30 AM EST Infusion Hematology Oncology at [address] [phone] 07/04/2024 11:00 AM EST Office Visit Hematology/Oncology at [address] [phone] Lia Barber APRN [address] [place] [address] DR HEMATOLOGY AND ONCOLOGY [place], [place] [phone] 07/04/2024 11:30 AM EST Infusion Hematology Oncology at [address] [phone] documented as of this encounter Procedures Procedure Name Priority Date/Time Associated Diagnosis Comments FILM LIBRARY STORAGE ONLY DX CHEST Routine 05/05/2024 11:55 AM EST documented in this encounter Results * Film Library- Storage Only DX Chest (05/05/2024 11:55 AM EST) 05/14/2024 8:35 PM EST Narrative [facility] - 05/14/2024 8:35 PM EST This exam is auto-finalizing. It's purpose is for storage only. Landen Goodman MD IMG FILM LIBRARY ORD ERABLES Performing Organization Address City/State/[facility] Co de Phone Number [place], [place] documented in this encounter Visit Diagnoses Not on filedocumented in this encounter Care Teams Gear Coding Machine Operator Relationship Specialty Start Date End Date Kadi Lane PA [address] [place] [address] PCP - General Family Medicine 07/28/16 documented as of this encounter
--- OUTSIDE RECORDS SUMMARY | 2024-06-20 01:23 | XMS_ITS | Encounter Summary ---
Author Organization [facility] [place] [address] Care Team Providers Care Hand Welt Butter Name Role Phone Kadi Lane Primary Care Provider [phone] Reason for Visit * Reason Onset Date Comments Follow-up 06/05/2024 Encounter Details Date Type Department Care Team (Late st Contact Info) Description 06/05/2024 Telephone Hematology/Oncology at [address] [phone] Stephanie Puckett, RN Follow-up Social History Tobacco Use Types Packs/Day Years Used Date Smoking Tobacco: Former Cigarettes 2 32 5 196 - 0349 Smokeless Tobacco: Never Alcohol Use Standard Drinks/Week [...] place to sleep or slept in a prison (including now)? No 08/14/2022 DH IPV Inpatient [...] Telephone Encounter - Stephanie Puckett RN - 06/05/2024 11:28 AM EST Images from the original note were not included. Called and spoke with Marco Antonio Xiong's SO Bhavna. She reports he has good days and bad days in regards to his breathing. He stopped the 40 mg prednisone daily on Saturday 06/03. She said he is losing weight, has no appetite and sleeps a lot. He weighed 116 lbs at home yesterday with no clothes. Reviewed with Lia Barber, DEEDEE. Okay to stay off prednisone as pt feels it isn't making any improvement. He has appt with pulmonary 06/15. Will follow up in clinic next week but advised to callsooner with any concerns or questions. Stephanie Puckett, RN P [facility] Hem Onc Nurse Check in about breathing, have they seen pulmonary yet? And update team documented in this encounter Plan of Treatment Upcoming Encounters Date Type Department Care Team (Late st Contact Info) Description 06/20/2024 10:00 AM EST Office Visit Hematology/Oncology at [address] [phone] [address] HEMATOLOGY AND ONCOLOGY [place], [place] [address] 06/20/2024 10:30 AM EST Infusion Hematology Oncology at [address] [phone] 07/04/2024 11:00 AM EST Office Visit Hematology/Oncology at [address] [phone] Lia Barber[address] HEMATOLOGY AND ONCOLOGY [place], [place] [address] 07/04/2024 11:30 AM EST Infusion Hematology Oncology at [address] [phone] documented as of this encounter Visit Diagnoses Not on filedocumented in this encounter Care Teams Hand Welt Butter Relationship Specialty Start Date End Date Kadi Lane PA [address] [place] [address] PCP - General Family Medicine 07/28/16 documented as of this encounter
--- OUTSIDE RECORDS SUMMARY | 2024-06-20 01:23 | XMS_ITS | Encounter Summary ---
Author Organization [facility] [place] [address] Care Team Providers Care Specialty Foods Cook Name Role Phone Kadi Lane Primary Care Provider [phone] Encounter Details Date Type Department Care Team (Late st Contact Info) Description 05/05/2024 Interpretation Only Radiology Library at [facility] [place] [phone] Landen Goodman MD [address] [place] [id number] Social History Tobacco Use Types Packs/Day Years Used Date Smoking Tobacco: Former Cigarettes 2 32 1 766 - 3114 Smokeless Tobacco: Never Alcohol Use Standard Drinks/Week [...] place to sleep or slept in a residential (including now)? No 08/14/2022 DH IPV Inpatient [...] 10:00 AM EST Office Visit Hematology/Oncology at [address] [phone] iLa Barber APRN [address] [place] [address] DR HEMATOLOGY AND ONCOLOGY [place], [place] [address] 06/20/2024 10:30 AM EST Infusion Hematology Oncology at [address] [phone] 07/04/2024 11:00 AM EST Office Visit Hematology/Oncology at [address] [phone] Lia Barber APRN [address] [place] [address] DR HEMATOLOGY AND ONCOLOGY [place] [id number] 07/04/2024 11:30 AM EST Infusion Hematology Oncology at [address] [phone] documented as of this encounter Procedures Procedure Name Priority Date/Time Associated Diagnosis Comments FILM LIBRARY STORAGE ONLY CT CHEST Routine 05/05/2024 12:35 PM EST documented in this encounter Results * Film Library- Storage Only CT Chest (05/05/2024 12:35 PM EST) 05/14/2024 8:35 PM EST Narrative RAD - 05/14/2024 8:35 PM EST This exam is auto-finalizing. It's purpose is for storage only. Landen Goodman MD G FILM LIBRARY ORD ERABLES [place], [place] documented in this encounter Visit Diagnoses Not on filedocumented in this encounter Care Teams Specialty Foods Cook Relationship Specialty Start Date End Date Kadi Lane PA [address] [place] [address] PCP - General Family Medicine 07/28/16 documented as of this encounter
--- OUTSIDE RECORDS SUMMARY | 2024-06-20 01:23 | XMS_ITS | Encounter Summary ---
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 Zach Vincent MD [facility] DR [place] [address] [facility] Hem Onc Infusion [address] [place] [phone] Referral ID Status Reason Start Date Expiration Date V isits Requested Visits Authorized [id number] Authorized 11/29/2023 11/28/2024 99 99 Encounter Details Date Type Department Care Team (Late st Contact Info) Description 05/02/2024 11:30 AM EST Infusion Hematology Oncology at [address] [phone] High risk medication use; Non-small [...] as of this encounter Progress Notes * Aníbal Solomon, RN - 05/02/2024 11:30 AM EST INFUSION THERAPY ADMINISTRATION NOTES DIAGNOSIS: NSCLC CYCLE #: Cycle 7, Day 1 - Pembrolizumab REASON FOR VISIT: To receive Immunotherapy/Chemotherapy SUBJECTIVE: Marco Antonio (Katrin) offers no complaints. He is accompanied by his . OBJECTIVE: VSS LAB DATA: Adequate for treatment IV ACCESS: PIV Pre administration: Chemotherapy orders independently verified for drug name, route, and dosage per patient's height, weight and BSA by ANÍBAL SOLOMON, SOREN and Staff Pharmacist(s). REACTIONS (DESCRIPTION, TIME, INTERVENTION AND EFFECTIVENESS) none ASSESSMENT: Marco Antonio was awake, alert and tolerated treatment well. PIV discontinued prior to dismissal. PLAN: Return to clinic as scheduled. documented in this encounter Plan of Treatment Upcoming Encounters Date Type Department Care Team (Late st Contact Info) Description 06/20/2024 10:00 AM EST Office Visit Hematology/Oncology at [address] [phone] HEMATOLOGY AND ONCOLOGY [place], [place] [phone] 06/20/2024 10:30 AM EST Infusion Hematology Oncology at [address] [phone] 07/04/2024 11:00 AM EST Office Visit Hematology/Oncology at [address] [phone] HEMATOLOGY AND ONCOLOGY [place], [place] [phone] 07/04/2024 11:30 AM EST Infusion Hematology Oncology at [address] [phone] documented as of this encounter Visit Diagnoses [...] 200 mg, Intravenous, ONCE, 1 dose, On Wed05/02/24 at 1245, Administer over 30 Minutes, Flush Line with NS after each dose, This agent is restricted to outpatient use. Is this drug being given as an outpatient? Yes New Bag 05/02/2024 12:10 PM EST 200 mg 21 6 mL/hr documented in this encounter Care Teams Homeowner Association Manager Relationship Specialty Start Date End Date Kadi Lane [place] [address] PCP - General Family Medicine 07/28/16 documented as of this encounter
--- OUTSIDE RECORDS SUMMARY | 2024-06-20 01:23 | XMS_ITS | Encounter Summary ---
Author Organization [facility] [place] [address] Care Team Providers Care Wax Specialist Name Role Phone Kadi Lane Primary Care Provider [phone] Encounter Details Date Type Department Care Team (Late st Contact Info) Description 05/15/2024 Orders Only Hematology/Oncology at [address] [phone] Lia Barber [address] [place] [address] COPD with exacerbation Social History Tobacco Use Types Packs/Day Years Used Date Smoking Tobacco: Former Cigarettes 2 32 1 906 - 1987 Smokeless Tobacco: Never Alcohol Use [...] AM EST Office Visit Hematology/Oncology at [address] [phone] Lia Barber APRN [address] [place] [address] DR HEMATOLOGY AND ONCOLOGY [place], [place] [address] 06/20/2024 10:30 AM EST Infusion Hematology Oncology at [address] [phone] 07/04/2024 11:00 AM EST Office Visit Hematology/Oncology at [address] [phone] Lia Barber APRN [address] [place] [address] DR HEMATOLOGY AND ONCOLOGY [place], [place] [address] 07/04/2024 11:30 AM EST Infusion Hematology Oncology at [address] [phone] documented as of this encounter Visit Diagnoses Diagnosis COPD with exacerbation Obstructive chronic bronchitis with exacerbation documented in this encounter Care Teams Wax Specialist Relationship Specialty Start Date End Date Kadi Lane [place] [address] PCP - General Family Medicine 07/28/16 documented as of this encounter
--- OUTSIDE RECORDS SUMMARY | 2024-06-20 01:24 | XMS_ITS | Encounter Summary ---
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 Procedures CT Chest w Contrast Lia Barber APRN [address] [place] [address] DR HEMATOLOGY [place] [address] [phone] Referral ID Status Reason Start Date Expiration Date V isits Requested Visits Authorized [id number] Closed Specialty Service Requested 02/15/2024 08/15/2025 1 1 Encounter Details Date Type Department Care Team (Late st Contact Info) Description 02/14/2024 9:30 AM EDT Office Visit Hematology/Oncology at [address] [phone] Lia Barber APRN [address] [place] [address] HEMATOLOGY [place] [address] Non-small cell cancer of right lung; 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 Social History Tobacco Use Types Packs/Day Years Used Date Smoking Tobacco: Former Cigarettes 2 32 1 956 - 1986 Smokeless Tobacco: Never Alcohol Use Standard Drinks/Week [...] Sign Reading Time Taken Comments Blood Pressure 120/56 02/14/2024 9:18 AM EDT Pulse 71 02/14/2024 9:18 AM EDT Temperature 36.3 ??C (97.3 ??F) 02/14/2024 9:18 AM ED T Respiratory Rate 18 02/14/2024 9:18 AM EDT Oxygen Saturation 100% 02/14/2024 9:18 AM EDT Inhaled Oxygen Concentration - - Weight 59.3 kg (130 lb 12.8 oz) 02/14/2024 9:18 AM EDT Height 168.9 cm (5' 6.5) 02/14/2024 9:18 AM EDT Body Mass Index 20.8 02/14/2024 9:18 AM EDT documented in this encounter Progress Notes * Lia Barber APRN - 02/14/2024 9:30 AM EDT Images from the original note were not included. Thoracic Oncology [facility] [place] [address] [phone] Marco Antonio Xiong is being seen for [...] on 11.29.23 with upfront dose reductions. Plan: Restaging CT after two cycles shows a response to treatment in terms of the joey areas and the anterior nodule/node. Some of this may represent effects of radiation. - Paclitaxel was omitted with C3 and he did much better, his neuropathy has resolved, and he would prefer to continue to omit it. - Labs and toxicities assessed and acceptable for ongoing treatment. - CT chest prior to return in 3 weeks. We will shift to maintenance pembro only at that time. We discussed restaging with PET but they would prefer to avoid the drive for now, if there is question offindings on CT scan they may reconsider. Lia Barber, MEDICAL LOGISTICS SPECIALIST 02/14/2024 Thoracic Oncology [facility] CC: ADRIANO Sheriff HPI/Interval History/Subjective: Last seen 01/12/2024 He is accompanied by his . He is feeling really well today, they just got back from a cruise [employer] and he tells me it was good for the soul Appetite has been good and he had fun indulging on the cruise, he gained 6 lbs. No nausea or vomiting, no diarrhea. He had pretty intense neuropathy with C2, taxol was omitted for C3 and he did much better, not having any neuropathy symptoms. Some hair loss. No fevers or infections. His cough has gone away. He hasno significant pain at this point. No rashes. Dyphagia has improved, is not impacting his intake. Social History/Support Network: Home situation: . Lives 2 hours away. 3 chuildren. 5 grandsons and 2 great grandauhters Employment: Retired. [employer]. Now likes to be outdoorrs fishing. [place]. Tobacco use: Quit in 1986. 2 ppd at the time. 82-mihh-ljpm history Alcohol use: uit then as well [...] therapeutically aspirated. The bronchoscope was removed. The [email or web address] robotic systemwas used for pre-procedure planning, including 3D rendering with image post-processing on an independent workstation. The [email or web address] robotic system was then used for intra- [...] read does not include comparison. Response noted. 11/29/2023 1:31 PM 11/29/2023 5:26 PM 12/20/2023 11:13 AM 12/20/2023 11:46 AM 12/20/2023 3:41 PM 01/12/2024 9:54 AM 01/12/2024 10:31 AM ONCBCN ONCOLOGY (AMB) Day, Cycle Day 1, Cycle 2 Day 1, Cycle 3 CARBOplatin (Paraplatin) IV 326 mg 326 mg 326 mg PACLitaxeL (Taxol) IV 150 mg/m2/dose = 239 mg 150 mg/m2/dose = 239 mg pembrolizumab 25 mg/mL (Keytruda) IV 200 mg 200 mg Patient Active Problem [...] Exam: Wt Readings from Last 3 Encounters: 02/14/24 59.3 kg (130 lb 12.8 oz) 01/12/24 56.5 kg (124 lb 9.6 oz) 12/20/23 57.3 kg (126 lb 6.4 oz) Temp Readings from Last 3 Encounters: 02/14/24 36.3 ??C (97.3 ??F) (Temporal) 01/12/24 36.1 ??C (96.9 ??F) (Temporal) 12/20/23 36.1 ??C (96.9 ??F) (Temporal) BP Readings from Last 3 Encounters: 02/14/24 120/56 01/12/24 130/61 12/20/23 142/61 Pulse Readings from Last 3 Encounters: 02/14/24 71 01/12/24 64 12/20/23 64 Body surface area is 1.67 meters squared. Wt Readings from Last 3 Encounters: 02/14/24 59.3 kg (130 lb 12.8 oz) 01/12/24 56.5 kg (124 lb 9.6 oz) 12/20/23 57.3 kg (126 lb 6.4 oz) KPS Score ECOG Grade Definition 90-100 [...] Thought content normal. Review of Laboratory Data: 02/14/24 WBC 4.94, Hgb 9.8, HCT 30.8, [...] 10:00 AM EST Office Visit Hematology/Oncology at [address] [phone] HEMATOLOGY [place] [address] 06/20/2024 10:30 AM EST Infusion Hematology Oncology at [address] [phone] 07/04/2024 11:00 AM EST Office Visit Hematology/Oncology at [address] [phone] Lia Barber [address] HEMATOLOGY AND ONCOLOGY [place], [place] [phone] 07/04/2024 11:30 AM EST Infusion Hematology Oncology at [address] [phone] Scheduled Orders Name Type Priority Associated Diagnoses Orde r Schedule CT Chest w Contrast Imaging Routine 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
--- OUTSIDE RECORDS SUMMARY | 2024-06-20 01:24 | XMS_ITS | Encounter Summary ---
Author [facility] [place] [address] Care Team Providers Care Pharmacy Aide Name Role Phone Kadi Lane Primary Care Provider [phone] Reason for Visit * Reason Onset Date Comments Abnormal Lab 12/09/2023 WBC Encounter Details Date Type Department Care Team (Late st Contact Info) Description 12/09/2023 Telephone Hematology/Oncology at [address] [phone] Stephanie Puckett RN Abnormal Lab (WBC) Social History Tobacco Use Types Packs/Day Years Used Date Smoking Tobacco: Former Cigarettes 2 32 1 736 - 9416 Smokeless Tobacco: Never Alcohol Use Standard Drinks/Week [...] place to sleep or slept in a longterm (including now)? No 08/14/2022 DH IPV Inpatient [...] Telephone Encounter - Stephanie Puckett RN - 12/09/2023 1:37 PM EDT [facility] lab called with critical WBC 1.08 today and ANC is 0.38, provider Lia Barber APRN made aware. Called pt and reviewed neutropenic precautions. Pt and spouse have a good understanding of this and will call with any concerns. ----- Message from Amanda Reid RN sent at 12/02/2023 8:51 AM EDT ----- Regarding: check labs at [facility] for mid cycle check at [facility] 12/08. Check in with Dr. Vincent/Marianne as needed. Let Marco Antonio/ his know if results are ok. documented in this encounter Plan of Treatment Upcoming Encounters Date Type Department Care Team (Late st Contact Info) Description 06/20/2024 10:00 AM EST Office Visit Hematology/Oncology at [address] [phone] [address] [place] [address] 06/20/2024 10:30 AM EST Infusion Hematology Oncology at [address] [phone] 07/04/2024 11:00 AM EST Office Visit Hematology/Oncology at [address] [phone] Lia Barber[address] [place] [address] 07/04/2024 11:30 AM EST Infusion Hematology Oncology at [address] [phone] documented as of this encounter Visit Diagnoses Not on filedocumented in this encounter Care Teams Pharmacy Aide Relationship Specialty Start Date End Date Kadi Lane PA [address] [place] [address] PCP - General Family Medicine 07/28/16 documented as of this encounter
--- OUTSIDE RECORDS SUMMARY | 2024-06-20 01:24 | XMS_ITS | Encounter Summary ---
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 Procedures NM Back PET CT Skull Base to Mid-thigh Zach Vincent MD [facility] DR HEMATOLOGY [place] [address] [place] [address] Referral ID Status Reason Start Date Expiration Date V isits Requested Visits Authorized [id number] Closed Specialty Service Requested 04/10/2024 10/08/2025 1 1 Encounter Details Date Type Department Care Team (Late st Contact Info) Description 04/10/2024 1:30 PM EST Office Visit Hematology/Oncology at [address] [phone] Zach Vincent MD [facility] DR HEMATOLOGY [place] [address] Lia Barber APRN [address] [place] [address] [place] [address] Non-small cell cancer of right lung; Secondary [...] place to sleep or slept in a fci (including now)? No 08/14/2022 DH IPV Inpatient [...] Sign Reading Time Taken Comments Blood Pressure 133/60 04/10/2024 1:06 PM EST Pulse 72 04/10/2024 1:06 PM EST Temperature 36.2 ??C (97.1 ??F) 04/10/2024 1:06 PM ES T Respiratory Rate 18 04/10/2024 1:06 PM EST Oxygen Saturation 99% 04/10/2024 1:06 PM EST Inhaled Oxygen Concentration - - Weight 55.9 kg (123 lb 3.2 oz) 04/10/2024 1:06 P M EST Height 168.9 cm (5' 6.5) 04/10/2024 1:06 PM EST Body Mass Index 19.59 04/10/2024 1:06 PM EST documented in this encounter Progress Notes * Zach Vincent MD - 04/10/2024 1:30 PM EST Images from the original note were not included. Thoracic Oncology [facility] Cancer [place] [phone] Marco Antonio Xiong is being seen for [...] assessed and acceptable for ongoing treatment. - SOB has improved since a month ago and di dnot worsen with resumption of the immunotherapy, so wewill continue therapy with pembrolizumab today. - RTC in 3 weeks - Restage with PET scan in [place] at the end of April (ordered today) Zach Vincent MD, MS 04/10/2024 Medical Oncology & Hematology [facility] Cancer [facility] CC: ADRIANO Sheriff HPI/Interval History/Subjective: Last seen 03/21/2024 Accompanied by his . Breathing did not worsen with resumption of th eimmunotherapy. Mild cough that comes and goes No fevers No new rashes, changes in breathing, new cough, diarrhea. Neuropathy has improved since stopping the taxol Social History/Support Network: Home situation: . Lives 2 hours away. 3 chuildren. 5 grandsons and 2 great grandauhters Employment: Retired. [employer]. Now likes to be outdoorrs fishing. [place]. Tobacco use: Quit in 1986. 2 ppd at the time. 74-leel-hpbk history Alcohol use: uit then as well [...] Pope MD on 08/12/2022 Presentation: Staging/PreTx Eval: 10.[address] Chest without contrast 1. [...] therapeutically aspirated. The bronchoscope was removed. The [employer] robotic systemwas used for pre-procedure planning, including 3D rendering with image post-processing on an independent workstation. The [employer] robotic system was then used for intra- [...] malignant cells are seen. Recommend clinical correlation. 3/7/23 Lung biopsy Tissue: Lung, right lower lobe [...] does not include comparison. Response noted. 03.06.24 12/20/2023 11:46 AM 12/20/2023 3:41 PM 01/12/2024 9:54 AM 01/12/2024 10:31 AM 02/14/2024 11:09 AM 02/14/2024 11:54 AM 03/21/2024 12:22 PM ONCBCN ONCOLOGY (AMB) Day, Cycle Day 1, Cycle 3 Day 1, Cycle 4 Day 1, Cycle 5 CARBOplatin (Paraplatin) IV 326 mg 326 mg 347 mg PACLitaxeL (Taxol) IV 150 mg/m2/dose = 239 mg pembrolizumab 25 mg/mL (Keytruda) IV 200 mg 200 mg 200 mg Patient [...] Exam: Wt Readings from Last 3 Encounters: 04/10/24 55.9 kg (123 lb 3.2 oz) 03/21/24 55.7 kg (122 lb 12.8 oz) 03/06/24 58.3 kg (128 lb 8 oz) Temp Readings from Last 3 Encounters: 04/10/24 36.2 ??C (97.1 ??F) (Temporal) 03/21/24 36.2 ??C (97.1 ??F) (Temporal) 03/06/24 36.2 ??C (97.1 ??F) (Temporal) BP Readings from Last 3 Encounters: 04/10/24 133/60 03/21/24 136/82 03/06/24 123/66 Pulse Readings from Last 3 Encounters: 04/10/24 72 03/21/24 82 03/06/24 86 Body surface area is 1.62 meters squared. Wt Readings from Last 3 Encounters: 04/10/24 55.9 kg (123 lb 3.2 oz) 03/21/24 55.7 kg (122 lb 12.8 oz) 03/06/24 58.3 kg (128 lb 8 oz) KPS Score ECOG Grade Definition 90-100 [...] place, and time. No distress. Appears well-developed. HENMyriam: Mouth/Throat: No oral exudates or lesions Eyes: [...] Thought content normal. Review of Laboratory Data: 04.10.24 White blood cell count 5.78 hemoglobin [...] 10:00 AM EST Office Visit Hematology/Oncology at [address] [phone] Lia Barber [address] HEMATOLOGY AND ONCOLOGY [place], [place] [address] 06/20/2024 10:30 AM EST Infusion Hematology Oncology at [address] [phone] 07/04/2024 11:00 AM EST Office Visit Hematology/Oncology at [address] [phone] Lia Barber [address] HEMATOLOGY AND ONCOLOGY [place], [place] [phone] 07/04/2024 11:30 AM EST Infusion Hematology Oncology at [address] [phone] documented as of this encounter Results * NM Back PET CT Skull Base to Mid-thigh (05/12/2024 11:39 AM EST) WORKSTATION ID [id number] RAD Anatomical Region Laterality Modality Positron Emissio [...] who have questions please contact the health pharmacy care coordinator that requested your imaging first. ? Electronically signed by: Bipin Christensen DO [employer] [place] ([phone]), at 05/16/2024 1:04 PM Narrative 05/16/2024 1:04 PM EST EXAMINATION: [facility] PET CT SKULL BASE TO MID-THIGH CLINICAL [...] on 11.29.23 TECHNIQUE: Following IV injection of 67-eqnluv-5-deoxyglucose (FDG) a standard uptake of approximately 60 [...] Note Bipin Christensen, DO - 05/16/2024 EXAMINATION: [facility] PET CT SKULL BASE TO MID-THIGH CLINICAL HISTORY: NSCLC restaging exam C34.91, Malignant neoplasm of unspecified part of right bronchus or lung- C77.8, Secondary and unspecified malignant neoplasm of lymph nodes ofmultiple regions 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 Repeat PET/CT, September 2023 with recurrent joey metastases treated withpalliative radiation (30 Gy in 10 fractions) to the mediastinum and palliativechemotherapy with carboplatin/paclitaxel/pembrolizumab on 11.29.23 TECHNIQUE: Following IV injection of 32-rovhor-2-deoxyglucose (FDG) astandard uptake of approximately 60 minutes, [...] lobe nodule is not FDG avid (axial [id number]) and unchanged compared to CT chest 05/05/2024, [...] patients who have questions please contactthe health pharmacy care coordinator that requested your imaging first. 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
--- OUTSIDE RECORDS SUMMARY | 2024-06-20 01:24 | XMS_ITS | Encounter Summary ---
Author Organization [facility]ly [facility] [address] Care Team Providers Care Car Washer Name Role Phone Kadi Lane Primary Care Provider Encounter Details Date Type Department Care Team (Late st Contact Info) Description 03/27/2024 Orders Only Hematology/Oncology at [address] [phone] [address]ia [address] [place]AT[place] [address] COPD with exacerbation Social History Tobacco Use Types Packs/Day Years Used Date Smoking Tobacco: Former Cigarettes 2 32 1 206 - 1987 Smokeless Tobacco: Never Alcohol Use [...] 10:00 AM EST Office Visit Hematology/Oncology at [address] [phone] Lia Barber APRN [address] [place] [address] DR HEMATOLOGY AND ONCOLOGY [place], [place] [address] 06/20/2024 10:30 AM EST Infusion Hematology Oncology at [address] [phone] 07/04/2024 11:00 AM EST Office Visit Hematology/Oncology at [address] [phone] Lia Barber APRN [address] [place] [address] DR HEMATOLOGY AND ONCOLOGY [place], [place] [address] 07/04/2024 11:30 AM EST Infusion Hematology Oncology at [address] [phone] documented as of this encounter Visit Diagnoses Diagnosis COPD with exacerbation Obstructive chronic bronchitis with exacerbation documented in this encounter Care Teams Car Washer Relationship Specialty Start Date End Date Kadi Lane [place] [address] PCP - General Family Medicine 07/28/16 documented as of this encounter
--- OUTSIDE RECORDS SUMMARY | 2024-06-20 01:24 | XMS_ITS | Encounter Summary ---
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 No 08/14/2022 DH IPV Inpatient [...] Progress Notes * Aníbal Solomon, RN - 12/20/2023 9:30 AM EDT INFUSION THERAPY ADMINISTRATION NOTES DIAGNOSIS: NSCLC CYCLE #: Cycle 2, Day 1 - Pembrolizumab, 3 Hr Paclitaxel, Carboplatin REASON FOR VISIT: To begin a combination Immunotherapy/Chemotherapy SUBJECTIVE: Marco Antonio (Katrin) offers no complaints. He is accompanied by his . OBJECTIVE: VSS. Weight stable. LAB DATA: WBC - done today adequate for treatment IV ACCESS: PIV Pre administration: Chemotherapy orders independently verified for drug name, route, and dosage per patient's height, weight and BSA by ANÍBAL SOLOMON, RN and Staff Pharmacist(s). REACTIONS (DESCRIPTION, TIME, INTERVENTION AND EFFECTIVENESS) none ASSESSMENT: Marco Antonio was awake, alert and tolerated treatment well. PIV discontinued prior to dismissal. Chemotherapy teaching reinforced. During clinic hours (8am-5pm Wednesday-Wednesday): pt. can call [phone] with questions or concerns. After clinic hours (5pm-8am Wednesday-Wednesday and weekends) pt can call [phone] and ask for the canal tender/oncologist supervisor correspondence section. Marco Antonio Garret Tyrese verbalized understanding of potential chemotherapy side effects and home care including but not limited to- handwashing to prevent infection, signs and symptoms of low blood counts (fever, fatigue, bleeding), to call with a fever of 100.4 or greater, any significant constipation/diarrhea, importance of nutrition and fluid intake (drinking at least 32-64 ounces of non-caffeinated beverages/day), mouth care. Marco Antonio Xiong verbalized understanding of how to take prescription medications given for home use after chemotherapy. PLAN: Return to clinic in three weeks. documented in this encounter Plan of Treatment Upcoming Encounters Date Type Department Care Team (Late st Contact Info) Description 06/20/2024 10:00 AM EST Office Visit Hematology/Oncology at [address] [phone] Lia Barber APRN [address] [place] [address] DR HEMATOLOGY [place] [address] 06/20/2024 10:30 AM EST Infusion Hematology Oncology at [address] [phone] 07/04/2024 11:00 AM EST Office Visit Hematology/Oncology at [address] [phone] Lia Barber APRN [address] [place] [address] DR HEMATOLOGY AND ONCOLOGY [place], [place] [id number] 07/04/2024 11:30 AM EST Infusion Hematology Oncology at [address] [phone] documented as of this encounter [...] MAR Action Action Date Dose Rate Site aprepitant (Cinvanti) (7.2 mg/mL) injection emulsion 130 mg 130 mg, Intravenous, Administer over 2 Minutes, ONCE, 1 dose, On Wed12/20/23 at 1030, Alternative administration of IV push over 2 minutes is a recommendation from the small engine specialist. Administer prior to chemotherapy., Routine Given 12/20/2023 10:20 AM EDT 130 mg CARBOplatin (Paraplatin) 326 mg in dextrose 5% 282.6 mL infusion 326 mg (Target AUC = 4), Intravenous, ONCE, 1 dose, On Wed12/20/23 at 1130, Administer over 30 Minutes, Warning Vesicant/Irritant Medication New Bag 12/20/2023 3:41 PM EDT 326 mg 565.2 mL/hr dexAMETHasone (Decadron) tablet 10 mg 10 mg, Oral, ONCE, 1 dose, On Wed12/20/23 at 1100, Administer 30 minutes prior to PACLitaxeL., Routine Given 12/20/2023 10:15 AM EDT 10 mg diphenhydrAMINE (Benadryl) capsule 50 mg 50 mg, Oral, ONCE, 1 dose, On Wed12/20/23 at 1030, Administer 30 minutes prior to PACLitaxeL., Routine Given 12/20/2023 10:15 AM EDT 50 mg famotidine (Pepcid) (10 mg/mL) injection 20 mg 20 mg, Intravenous, ONCE, 1 dose, On Wed12/20/23 at 1100, Administer 30 minutes prior to PACLitaxeL. Given 12/20/2023 10:17 AM EDT 20 mg PACLitaxeL (Taxol) 239 mg in sodium chloride 0.9% Non-PVC 539.83 mL infusion 239 mg (rounded from 238.5 mg = 150 mg/m2/dose ? 1.59 m2 Treatment Plan BSA from Recorded weight), Intravenous, ONCE, 1 dose, On Wed12/20/23 at 1130, Administer over 3 Hours, Warning Vesicant/Irritant Medication 3 Step Titration for Infusions 1 and 2. Regular (Not Titrated) Rate to start at infusion 3 if no HSR. Step 1: Start at a rate of 1.8 mL/hr for 15 minutes. Step 2: Increase rate to 18 mL/hr for 15 minutes. Step 3: Increase to regular infusion rate 179.9 mL/hr for remainder of infusion. Warning Vesicant/Irritant Medication , Should this infusion follow 3 Step Titration (Initial Dosing) or Standard Infusion? Initial: 3 Step Titration New Bag 12/20/2023 11:46 AM EDT 239 mg 179.9 mL/hr palonosetron (Aloxi) (0.05 mg/mL) injection 0.25 mg 0.25 mg, Intravenous, ONCE, 1 dose, On Wed12/20/23 at 1030, Administer over 30 seconds., Routine Given 12/20/2023 10:17 AM EDT 0.25 mg pembrolizumab (Keytruda) 200 mg in sodium chloride 0.9% 108 mL infusion 200 mg, Intravenous, ONCE, 1 dose, On Wed12/20/23 at 1130, Administer over 30 Minutes, Flush Line with NS after each dose, This agent is restricted to outpatient use. Is this drug being given as an outpatient? Yes New Bag 12/20/2023 11:13 AM EDT 200 mg 216 mL/hr documented in this encounter Care Teams Dowel Maker Relationship Specialty Start Date End Date Kadi Lane PA [address] [place] [address] PCP - General Family Medicine 07/28/16 documented as of this encounter
--- OUTSIDE RECORDS SUMMARY | 2024-06-20 01:24 | XMS_ITS | Encounter Summary ---
Author Organization [facility] [place] [address] Care Team Providers Care Windows Systems Engineer Name Role Phone Kadi Lane Primary Care Provider [phone] Encounter Details Date Type Department Care Team (Late st Contact Info) Description 03/21/2024 11:00 AM EST Office Visit Hematology/Oncology at [address] [phone] Lia Barber APRN [address] [place] [address] [place] [address] Non-small cell cancer of right [...] Sign Reading Time Taken Comments Blood Pressure 136/82 03/21/2024 10:59 AM EST Pulse 82 03/21/2024 10:59 AM EST Temperature 36.2 ??C (97.1 ??F) 03/21/2024 1 0:59 AM EST Respiratory Rate 18 03/21/2024 10:5 9 AM EST Oxygen Saturation 100% 03/21/2024 10: 59 AM EST Inhaled Oxygen Concentration - - Weight 55.7 kg (122 lb 12.8 oz) 024 10:59 AM EST Height 168.9 cm (5' 6.5) 03/21/2024 10 :59 AM EST Body Mass Index 19.53 03/21/2024 10:59 AM EST documented in this encounter Progress Notes * Lia Barber APRN - 03/21/2024 11:00 AM EST Images from the original note were not included. Thoracic Oncology [facility] [place] [phone] Marco Antonio Xiong is being seen for [...] prefer to continue to omit it. - SOB has improved, so we will resume therapy with pembrolizumab today. However, if his symptoms return he is aware to call us immediately, and that this may impact whether or not he can stay on immunotherapy. Lia Barber, STRIP MACHINE OPERATOR 03/21/2024 Thoracic Oncology [facility] CC: ADRIANO Sheriff HPI/Interval History/Subjective: Last seen 03/06/2024 He is feeling much better today, his breathing is not 100% but it is better and he is generally feeling well. His weight is down a bit, he tells me he's eating/swallowing without difficulty. Thinks his cruise weight he gained is coming off. He had pretty intense neuropathy with C2, taxol was omitted for C3 and he did much better, not having any neuropathy symptoms. Some hair loss. No fevers or infections. He has no significant pain at this point. No rashes. Social History/Support Network: Home situation: . Lives 2 hours away. 3 chuildren. 5 grandsons and 2 great grandauhters Employment: Retired. [employer]. Now likes to be outdoorrs fishing. [place]. Tobacco use: Quit in 1986. 2 ppd at the time. [id number] history Alcohol use: uit then as well [...] therapeutically aspirated. The bronchoscope was removed. The [employer] robotic systemwas used for pre-procedure planning, including 3D rendering with image post-processing on an independent workstation. The [employer] robotic system was then used for intra- [...] not include comparison. Response noted. 03.06.24 12/20/2023 11:13 AM 12/20/2023 11:46 AM 12/20/2023 3:41 PM 01/12/2024 9:54 AM 01/12/2024 10:31 AM 02/14/2024 11:09 AM 02/14/2024 11:54 AM ONCBCN ONCOLOGY (AMB) Day, Cycle Day 1, Cycle 2 Day 1, Cycle 3 Day 1, Cycle 4 CARBOplatin (Paraplatin) IV 326 mg 326 mg [...] Exam: Wt Readings from Last 3 Encounters: 03/21/24 55.7 kg (122 lb 12.8 oz) 03/06/24 58.3 kg (128 lb 8 oz) 02/14/24 59.3 kg (130 lb 12.8 oz) Temp Readings from Last 3 Encounters: 03/21/24 36.2 ??C (97.1 ??F) (Temporal) 03/06/24 36.2 ??C (97.1 ??F) (Temporal) 02/14/24 36.3 ??C (97.3 ??F) (Temporal) BP Readings from Last 3 Encounters: 03/21/24 136/82 03/06/24 123/66 02/14/24 120/56 Pulse Readings from Last 3 Encounters: 03/21/24 82 03/06/24 86 02/14/24 71 Body surface area is 1.62 meters squared. Wt Readings from Last 3 Encounters: 03/21/24 55.7 kg (122 lb 12.8 oz) 03/06/24 58.3 kg (128 lb 8 oz) 02/14/24 59.3 kg (130 lb 12.8 oz) KPS Score ECOG Grade [...] Thought content normal. Review of Laboratory Data: 03/21/24 WBC 8.29, platelets 296,000, ANC 6720,hemoglobin [...] 10:00 AM EST Office Visit Hematology/Oncology at [address] [phone] Lia Barber STRIP MACHINE OPERATOR [address] [place] [address] [place] [address] 06/20/2024 10:30 AM EST Infusion Hematology Oncology at [address] [phone] 07/04/2024 11:00 AM EST Office Visit Hematology/Oncology at [address] [phone] Lia Barber [address] [place] [address] 07/04/2024 11:30 AM EST Infusion Hematology Oncology at [address] [phone] documented as of this encounter Visit Diagnoses Diagnosis 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
--- OUTSIDE RECORDS SUMMARY | 2024-06-20 01:24 | XMS_ITS | Encounter Summary ---
Author Organization [facility] [place] [address] Care Team Providers Care Air Plant Engineer Name Role Phone Kadi Lane Primary Care Provider [phone] Encounter Details Date Type Department Care Team (Late st Contact Info) Description 03/06/2024 1:00 PM EDT Office Visit Hematology/Oncology at [address] [phone] Zach Vincent MD [facility] DR [place] [address] Lia Barber APRN [address] [place] [address] DR HEMATOLOGY AND ONCOLOGY [place], [place] [phone] High risk medication use; COPD with exacerbation Social History Tobacco Use [...] Sign Reading Time Taken Comments Blood Pressure 123/66 03/06/2024 12:37 PM EDT Pulse 86 03/06/2024 12:37 PM EDT Temperature 36.2 ??C (97.1 ??F) 03/06/2024 12:37 PM E DT Respiratory Rate 18 03/06/2024 12:37 PM EDT Oxygen Saturation 97% 03/06/2024 12:37 PM EDT Inhaled Oxygen Concentration - - Weight 58.3 kg (128 lb 8 oz) 03/06/2024 12:37 PM EDT Height 168.9 cm (5' 6.5) 03/06/2024 12:37 PM ED T Body Mass Index 20.43 03/06/2024 12:37 PM EDT documented in this encounter Progress Notes * Lia Barber APRN - 03/06/2024 1:00 PM EDT Images from the original note were not included. Thoracic Oncology [facility] [place] [phone] Marco Antonio Xiong is being seen for [...] prefer to continue to omit it. - Unfortunately with new congested cough and SOB today. Question COPD exacerbation vs. PNA vs. Pneumonitis. Will treat with 5 days of prednisone and zithro, and will re-evaluate in a couple weeks. Heand his are aware to call if symptoms do not improve or worsen. Lia Elisabeth, MACHINE FEEDER 03/06/2024 Thoracic Oncology [facility] CC: ADRIANO Sheriff HPI/Interval History/Subjective: Last seen 02/14/2024 He is accompanied by his . Their primary concern today is a congested cough that has been goingon for 2 weeks. No fevers, not productive. Otherwise feeling well. He had pretty intense neuropathy with C2, [...] in 1986. 2 ppd at the time. [id number] history Alcohol use: uit then as well [...] therapeutically aspirated. The bronchoscope was removed. The [employer] robotic systemwas used for pre-procedure planning, including 3D rendering with image post-processing on an independent workstation. The [employer] robotic system was then used for intra- [...] Exam: Wt Readings from Last 3 Encounters: 03/06/24 58.3 kg (128 lb 8 oz) 02/14/24 59.3 kg (130 lb 12.8 oz) 01/12/24 56.5 kg (124 lb 9.6 oz) Temp Readings from Last 3 Encounters: 03/06/24 36.2 ??C (97.1 ??F) (Temporal) 02/14/24 36.3 ??C (97.3 ??F) (Temporal) 01/12/24 36.1 ??C (96.9 ??F) (Temporal) BP Readings from Last 3 Encounters: 03/06/24 123/66 02/14/24 120/56 01/12/24 130/61 Pulse Readings from Last 3 Encounters: 03/06/24 86 02/14/24 71 01/12/24 64 Body surface area is 1.65 meters squared. Wt Readings from Last 3 Encounters: 03/06/24 58.3 kg (128 lb 8 oz) 02/14/24 59.3 kg (130 lb 12.8 oz) 01/12/24 56.5 kg (124 lb 9.6 oz) KPS Score ECOG Grade Definition 90-100 [...] Thought content normal. Review of Laboratory Data: 03/06/24 WBC 4.89, H/H 10.1/30.9, plt 220,000, [...] AM EST Office Visit Hematology/Oncology at [address] [phone] Lia Barber [address] HEMATOLOGY AND ONCOLOGY [place], [place] [address] 06/20/2024 10:30 AM EST Infusion Hematology Oncology at [address] [phone] 07/04/2024 11:00 AM EST Office Visit Hematology/Oncology at [address] [phone] HEMATOLOGY AND ONCOLOGY [place], [place] [phone] 07/04/2024 11:30 AM EST Infusion Hematology Oncology at [address] [phone] documented as of this encounter Visit Diagnoses Diagnosis High risk medication use Encounter for long-term (current) use of other medications COPD with exacerbation Obstructive chronic bronchitis with exacerbation documented in this encounter Care Teams Air Plant Engineer Relationship Specialty Start Date End Date Kadi [place] [address] PCP - General Family Medicine 07/28/16 documented as of this encounter
--- OUTSIDE RECORDS SUMMARY | 2024-06-20 01:24 | XMS_ITS | Encounter Summary ---
Author Organization [facility] [place] [address] Care Team Providers Care Wallpaper Consultant Name Role Phone Kadi Lane Primary Care Provider [phone] Reason for Visit * Reason Onset Date Comments Follow-up 11/30/2023 Follow up after first time chemo on 11/29/23. Encounter Details Date Type Department Care Team (Late st Contact Info) Description 11/30/2023 Telephone Hematology Oncology at [address] [phone] Aminata Celaya, RN Follow-up (Follow up after first time chemo on 11/29/23.) Social History Tobacco Use Types Packs/Day Years Used Date Smoking Tobacco: Former Cigarettes 2 32 1 956 - 4180 Smokeless Tobacco: Never Alcohol Use Standard Drinks/Week [...] encounter Miscellaneous Notes * Telephone Encounter - Aminata Celaya RN - 11/30/2023 2:17 PM EDT Marco Antonio received pembrolizumab, paclitaxel (3 hr), and carboplatin yesterday. I attempted to place a call to him to inquire how he tolerated this overnight. I called both the house phone and the mobilewith no answer. I left messages x 2. documented in this encounter Plan of Treatment Upcoming Encounters Date Type Department Care Team (Late st Contact Info) Description 06/20/2024 10:00 AM EST Office Visit Hematology/Oncology at [address] [phone] HEMATOLOGY AND ONCOLOGY [place], [place] [address] 06/20/2024 10:30 AM EST Infusion Hematology Oncology at [address] [phone] 07/04/2024 11:00 AM EST Office Visit Hematology/Oncology at [address] [phone] Lia Barber [address] HEMATOLOGY AND ONCOLOGY [place], [place] [address] 07/04/2024 11:30 AM EST Infusion Hematology Oncology at [address] [phone] documented as of this encounter Visit Diagnoses Not on filedocumented in this encounter Care Teams Wallpaper Consultant Relationship Specialty Start Date End Date Kadi Lane PA [address] [place] [address] PCP - General Family Medicine 07/28/16 documented as of this encounter
--- OUTSIDE RECORDS SUMMARY | 2024-06-20 01:24 | XMS_ITS | Encounter Summary ---
Author Organization [facility] [place] [address] Care Team Providers Care Switch Foreman Name Role Phone Kadi Lane Primary Care Provider [phone] Encounter Details Date Type Department Care Team (Latest Contact Info) Description 01/12/2024 Travel Social History Tobacco Use Types Packs/Day [...] place to sleep or slept in a usp (including now)? No 08/14/2022 DH IPV Inpatient [...] 10:00 AM EST Office Visit Hematology/Oncology at [address] [phone] Lia Barber [address] HEMATOLOGY AND ONCOLOGY [place], [place] [address] 06/20/2024 10:30 AM EST Infusion Hematology Oncology at [address] [phone] 07/04/2024 11:00 AM EST Office Visit Hematology/Oncology at [address] [phone] HEMATOLOGY AND ONCOLOGY [place], [place] [address] 07/04/2024 11:30 AM EST Infusion Hematology Oncology at [address] [phone] documented as of this encounter Visit Diagnoses Not on filedocumented in this encounter Care Teams Switch Foreman Relationship Specialty Start Date End Date Kadi Lane PA [address] [place] [address] PCP - General Family Medicine 07/28/16 documented as of this encounter
--- OUTSIDE RECORDS SUMMARY | 2024-06-20 01:24 | XMS_ITS | Encounter Summary ---
Author Organization [facility] [place] [address] Care Team Providers Care Performance Manager Name Role Phone Kadi Lane Primary Care Provider [phone] Encounter Details Date Type Department Care Team (Late st Contact Info) Description 01/04/2024 Orders Only Hematology [place] [phone] Zach Vincent MD [facility] DR HEMATOLOGY [place] [address] Social History Tobacco Use Types Packs/Day Years Used Date Smoking Tobacco: Former Cigarettes 2 32 1 446 - 1987 Smokeless Tobacco: Never Alcohol Use [...] 10:00 AM EST Office Visit Hematology/Oncology at [address] [phone] Lia Barber APRN [address] [place] [address] DR HEMATOLOGY AND ONCOLOGY [place], [place] [address] 06/20/2024 10:30 AM EST Infusion Hematology Oncology at [address] [phone] 07/04/2024 11:00 AM EST Office Visit Hematology/Oncology at [address] [phone] Lia Barber APRN [address] [place] [address] DR HEMATOLOGY AND ONCOLOGY [place], [place] [phone] 07/04/2024 11:30 AM EST Infusion Hematology Oncology at [address] [phone] documented as of this encounter Visit Diagnoses Not on filedocumented in this encounter Care Teams Performance Manager Relationship Specialty Start Date End Date Kadi Lane PA [address] [place] [address] PCP - General Family Medicine 07/28/16 documented as of this encounter
--- OUTSIDE RECORDS SUMMARY | 2024-06-20 01:24 | XMS_ITS | Encounter Summary ---
Author Organization [facility] [place] [address] Care Team Providers Care Poultry Farm Laborer Name Role Phone Kadi Lane Primary Care Provider Encounter Details Date Type Department Care Team (Late st Contact Info) Description 01/12/2024 9:00 AM EDT Office Visit Hematology/Oncology at [address] [phone] Lia Barber APRN [address] [place] [place] [address] [place] [address] Non-small cell cancer of right [...] place to sleep or slept in a jail (including now)? No 08/14/2022 DH IPV Inpatient [...] Reading Time Taken Comments Blood Pressure 130/61 01/12/2024 8:43 AM EDT Pulse 64 01/12/2024 8:43 AM EDT Temperature 36.1 ??C (96.9 ??F) 01/12/2024 8:43 AM ED T Respiratory Rate 18 01/12/2024 8:43 AM EDT Oxygen Saturation 100% 01/12/2024 8:43 AM EDT Inhaled Oxygen Concentration - - Weight 56.5 kg (124 lb 9.6 oz) 01/12/2024 8:43 A M EDT Height 168.9 cm (5' 6.5) 01/12/2024 8:43 AM EDT Body Mass Index 19.81 01/12/2024 8:43 AM EDT documented in this encounter Progress Notes * Lia Barber, MAINTENANCE CUSTODIAN - 01/12/2024 9:00 AM EDT Images from the original note were not included. Thoracic Oncology [facility] [place] [address] [phone] Marco Antonio Xiong is being seen for [...] he was treated with abx and close obersvation but subsequent evaluation showed increasing size of [...] this may represent effects of radiation. - Given worsening neuropathy despite dose reduction of paclitaxel, will omit this going forward andplan for two more cycles of carboplatin/pembro before switching to maintenance. - Labs and toxicities assessed and acceptable for ongoing treatment. - They're going on a cruise at the end of January and would like to delay his next appointment tot so he's feeling well for the trip, which we are happy to accommodate. Lia Elisabeth, MAINTENANCE CUSTODIAN 01/12/2024 Thoracic Oncology [facility] CC: ADRIANO Sheriff HPI/Interval History/Subjective: Last seen: 12/20/23 He is accompanied by his . Feeling not too bad, some days are better than others. Appetite has been good and weight is generally stable. No nausea or vomiting, no diarrhea. He had pretty intense neuropathy with the last cycle, this is now resolved. Some hair loss. No fevers or infections. His cough has gone away. He has no significant pain at this point and only needed 2 doses of the morphine. No rashes. Dyphagia has improved, is not impacting his intake. Social History/Support Network: Home situation: . Lives 2 hours away. 3 chuildren. 5 grandsons and 2 great grandauhters Employment: Retired. [employer]. Now likes to be outdoorrs fishing. [place]. Tobacco use: Quit in 1986. 2 ppd at the time. [id number] history Alcohol use: uit then as well [...] therapeutically aspirated. The bronchoscope was removed. The [employer] robotic systemwas used for pre-procedure planning, including 3D rendering with image post-processing on an independent workstation. The [employer] robotic system was then used for intra- [...] does not include comparison. Response noted. 11/29/2023 12:49 PM 11/29/2023 1:31 PM 11/29/2023 5:26 PM 12/20/2023 11:13 AM 12/20/2023 11:46 AM 12/20/2023 3:41 PM ONCBCN ONCOLOGY (AMB) Day, Cycle Day 1, Cycle 1 Day 1, Cycle 2 CARBOplatin (Paraplatin) IV 326 mg 326 mg PACLitaxeL (Taxol) IV [...] Exam: Wt Readings from Last 3 Encounters: 01/12/24 56.5 kg (124 lb 9.6 oz) 12/20/23 57.3 kg (126 lb 6.4 oz) 11/29/23 55.7 kg (122 lb 12.8 oz) Temp Readings from Last 3 Encounters: 01/12/24 36.1 ??C (96.9 ??F) (Temporal) 12/20/23 36.1 ??C (96.9 ??F) (Temporal) 11/29/23 36.2 ??C (97.1 ??F) (Temporal) BP Readings from Last 3 Encounters: 01/12/24 130/61 12/20/23 142/61 11/29/23 136/68 Pulse Readings from Last 3 Encounters: 01/12/24 64 12/20/23 64 11/29/23 73 Body surface area is 1.63 meters squared. Wt Readings from Last 3 Encounters: 01/12/24 56.5 kg (124 lb 9.6 oz) 12/20/23 57.3 kg (126 lb 6.4 oz) 11/29/23 55.7 kg (122 lb 12.8 oz) KPS [...] Thought content normal. Review of Laboratory Data: 01/12/24 WBC 7.53, H/H 10.3/31.4, plt 258,000, [...] no new data documented in this encounter Miscellaneous Notes * Addendum Note - Lia Barber APRN - 01/12/2024 9:00 AM EDTAddended by: LIA BARBER on: 01/12/2024 09:27 AM Modules accepted: Orders documented in this encounter Plan of Treatment Upcoming Encounters Date Type Department Care Team (Late st Contact Info) Description 06/20/2024 10:00 AM EST Office Visit Hematology/Oncology at [address] [phone] Lia Barber APRN [address] [place] [place] [address] DR HEMATOLOGY AND ONCOLOGY [place], [place] [phone] 06/20/2024 10:30 AM EST Infusion Hematology Oncology at [address] [phone] 07/04/2024 11:00 AM EST Office Visit Hematology/Oncology at [address] [phone] Lia Barber APRN [address] [place] [place] [address] DR HEMATOLOGY AND ONCOLOGY [place], [place] [id number] 07/04/2024 11:30 AM EST Infusion Hematology Oncology at [address] [phone] documented as of this encounter Visit Diagnoses Diagnosis 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
--- OUTSIDE RECORDS SUMMARY | 2024-06-20 01:24 | XMS_ITS | Encounter Summary ---
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 Zach Vincent MD [facility] DR [place] [address] Stj Hem Onc Infusion [address] [place] [phone] Referral ID Status Reason Start Date Expiration Date V isits Requested Visits Authorized [id number] Authorized 11/29/2023 11/28/2024 99 99 Encounter Details Date Type Department Care Team (Late st Contact Info) Description 02/14/2024 10:00 AM EDT Infusion Hematology Oncology at [address] [phone] High risk medication use; Non-small [...] as of this encounter Progress Notes * Vy Cagle RN - 02/14/2024 10:00 AM EDT INFUSION THERAPY ADMINISTRATION NOTES DIAGNOSIS: NSCLC CYCLE #: Cycle 4, Day 1 - Pembrolizumab, Carboplatin REASON FOR VISIT: To receive Immunotherapy/Chemotherapy SUBJECTIVE: Marco Antonio (Jose A-LAKISHA) offers no complaints. He is accompanied by his . OBJECTIVE: VSS. Weight is up today. LAB DATA: done today at [facility] - adequate for treatment IV ACCESS: PIV Pre administration: Chemotherapy orders independently verified for drug name, route, and dosage per patient's height, weight and BSA by Vy Cagle, SOREN and Staff Pharmacist(s). REACTIONS (DESCRIPTION, TIME, INTERVENTION AND EFFECTIVENESS) none ASSESSMENT: Marco Antonio was awake, alert and tolerated treatment well. PIV discontinued prior to dismissal. PLAN: Return to clinic as scheduled. documented in this encounter Plan of Treatment Upcoming Encounters Date Type Department Care Team (Late st Contact Info) Description 06/20/2024 10:00 AM EST Office Visit Hematology/Oncology at [address] [phone] HEMATOLOGY AND ONCOLOGY [place], [place] [address] 06/20/2024 10:30 AM EST Infusion Hematology Oncology at [address] [phone] 07/04/2024 11:00 AM EST Office Visit Hematology/Oncology at [address] [phone] [place] [address] 07/04/2024 11:30 AM EST Infusion Hematology Oncology at [address] [phone] documented as of this encounter Visit Diagnoses [...] over 2 Minutes, ONCE, 1 dose, On Wed02/14/24 at 1015, Alternative administration of IV push over 2 minutes is a recommendation from the masonry teacher. Administer prior to chemotherapy., Routine Given 02/14/2024 10:23 AM EDT 130 mg CARBOplatin (Paraplatin) 347 mg in dextrose 5% 284.7 mL infusion 347 mg (rounded from 347.2 mg, Target AUC = 4), Intravenous, ONCE, 1 dose, On Wed02/14/24 at 1115, Administer over 30 Minutes, Warning Vesicant/Irritant Medication New Bag 02/14/2024 11:54 AM EDT 347 mg 569.4 mL/hr dexAMETHasone (Decadron) tablet 10 mg 10 mg, Oral, ONCE, 1 dose, On Wed02/14/24 at 1045, Administer 30 minutes prior to PACLitaxeL., Routine Given 02/14/2024 10:18 AM EDT 10 mg palonosetron (Aloxi) (0.05 mg/mL) injection 0.25 mg 0.25 mg, Intravenous, ONCE, 1 dose, On Wed02/14/24 at 1015, Administer over 30 seconds., Routine Given 02/14/2024 10:19 AM EDT 0.25 mg pembrolizumab (Keytruda) 200 mg in sodium chloride 0.9% 108 mL infusion 200 mg, Intravenous, ONCE, 1 dose, On Wed02/14/24 at 1115, Administer over 30 Minutes, Flush Line with NS after each dose, This agent is restricted to outpatient use. Is this drug being given as an outpatient? Yes New Bag 02/14/2024 11:09 AM EDT 200 mg 216 mL/hr documented in this encounter Care Teams Land Commissioner Relationship Specialty Start Date End Date Kadi Lane PA [address] [place] [address] PCP - General Family Medicine 07/28/16 documented as of this encounter
--- OUTSIDE RECORDS SUMMARY | 2024-06-20 01:24 | XMS_ITS | Encounter Summary ---
Author Organization [facility] [place] [address] Care Team Providers Care Equal Opportunity Specialist Name Role Phone Kadi Lane Primary Care Provider [phone] Encounter Details Date Type Department Care Team (Latest Contact Info) Description 11/29/2023 Travel Social History Tobacco Use Types Packs/Day [...] 10:00 AM EST Office Visit Hematology/Oncology at [address] [phone] Lia Barber [address] HEMATOLOGY AND ONCOLOGY [place], [place] [address] 06/20/2024 10:30 AM EST Infusion Hematology Oncology at [address] [phone] 07/04/2024 11:00 AM EST Office Visit Hematology/Oncology at [address] [phone] HEMATOLOGY AND ONCOLOGY [place], [place] [address] 07/04/2024 11:30 AM EST Infusion Hematology Oncology at [address] [phone] documented as of this encounter Visit Diagnoses Not on filedocumented in this encounter Care Teams Equal Opportunity Specialist Relationship Specialty Start Date End Date Kadi Lane PA [address] [place] [address] PCP - General Family Medicine 07/28/16 documented as of this encounter
--- OUTSIDE RECORDS SUMMARY | 2024-06-20 01:24 | XMS_ITS | Encounter Summary ---
Author Organization [facility] [place] [address] Care Team Providers Care Procurement Buyer Name Role Phone Kadi Lane Primary Care Provider [phone] Encounter Details Date Type Department Care Team (Latest Contact Info) Description 02/14/2024 Travel Social History Tobacco Use Types Packs/Day [...] place to sleep or slept in a retirement (including now)? No 08/14/2022 DH IPV Inpatient [...] 10:00 AM EST Office Visit Hematology/Oncology at [address] [phone] [address]ia Barber [address] HEMATOLOGY AND ONCOLOGY [place], [place] [address] 06/20/2024 10:30 AM EST Infusion Hematology Oncology at [address] [phone] 07/04/2024 11:00 AM EST Office Visit Hematology/Oncology at [address] [phone] HEMATOLOGY AND ONCOLOGY [place], [place] [address] 07/04/2024 11:30 AM EST Infusion Hematology Oncology at [address] [phone] documented as of this encounter Visit Diagnoses Not on filedocumented in this encounter Care Teams Procurement Buyer Relationship Specialty Start Date End Date Kadi Lane PA [address] [place] [address] PCP - General Family Medicine 07/28/16 documented as of this encounter
--- OUTSIDE RECORDS SUMMARY | 2024-06-20 01:24 | XMS_ITS | Encounter Summary ---
Author Organization [facility] [place] [address] Care Team Providers Care Rn Cvicu Name Role Phone Kadi Lane Primary Care Provider [phone] Encounter Details Date Type Department Care Team (Late st Contact Info) Description 01/04/2024 Telephone Hematology [place] [phone] Zach Vincent MD [facility] DR HEMATOLOGY [place] [address] Social History Tobacco Use Types Packs/Day Years Used Date Smoking Tobacco: Former Cigarettes 2 32 1 776 - 7420 Smokeless Tobacco: Never Alcohol Use Standard Drinks/Week [...] encounter Miscellaneous Notes * Telephone Encounter - Zach Vincent MD - 01/04/2024 8:17 AM EDT Images from the original note were not included. Telephone Call Called and spoke with his daughter who had called about the results (see below) which show a response to treatment in terms of the joey areas and the anterior nodule/node. Some of this may representeffects of radiation. He is having significant neuropathy despite the dose reduction in the paclitaxel so will plan to omit that agent for the next cycle (C3 scheduled for 01/11 currently) and continue the carboplatin and pembrolizumab for 2 cycles and then switch to maintennce treatment. Zach Vincent MD, MS 01/04/2024 Medical Oncology & Hematology [facility] Outside read does not include a comparison documented in this encounter Plan of Treatment Upcoming Encounters Date Type Department Care Team (Late st Contact Info) Description 06/20/2024 10:00 AM EST Office Visit Hematology/Oncology at [address] [phone] Lia Barber[address] [place] [address] 06/20/2024 10:30 AM EST Infusion Hematology Oncology at [address] [phone] 07/04/2024 11:00 AM EST Office Visit Hematology/Oncology at [address] [phone] Lia Barber[address] HEMATOLOGY AND ONCOLOGY [place], [place] [address] 07/04/2024 11:30 AM EST Infusion Hematology Oncology at [address] [phone] documented as of this encounter Visit Diagnoses Not on filedocumented in this encounter Care Teams Rn Cvicu Relationship Specialty Start Date End Date Kadi Lane PA [address] [place] [address] PCP - General Family Medicine 07/28/16 documented as of this encounter
--- OUTSIDE RECORDS SUMMARY | 2024-06-20 01:24 | XMS_ITS | Encounter Summary ---
Author Organization [facility] [place] [address] Care Team Providers Care District Captain Name Role Phone Kadi Lane Primary Care Provider [phone] Encounter Details Date Type Department Care Team (Latest Contact Info) Description 03/21/2024 Travel Social History Tobacco Use Types Packs/Day [...] AM EST Office Visit Hematology/Oncology at [address] [phone] Lia Barber [address] HEMATOLOGY AND ONCOLOGY [place], [place] [address] 06/20/2024 10:30 AM EST Infusion Hematology Oncology at [address] [phone] 07/04/2024 11:00 AM EST Office Visit Hematology/Oncology at [address] [phone] HEMATOLOGY AND ONCOLOGY [place], [place] [address] 07/04/2024 11:30 AM EST Infusion Hematology Oncology at [address] [phone] documented as of this encounter Visit Diagnoses Not on filedocumented in this encounter Care Teams District Captain Relationship Specialty Start Date End Date Kadi Lane PA [address] [place] [address] PCP - General Family Medicine 07/28/16 documented as of this encounter
--- OUTSIDE RECORDS SUMMARY | 2024-06-20 01:24 | XMS_ITS | Encounter Summary ---
Author Organization [facility] [place] [address] Care Team Providers Care Key Carrier Name Role Phone Kadi Lane Primary Care Provider [phone] Reason for Visit * Reason Onset Date Comments Follow-up 03/13/2024 Encounter Details Date Type Department Care Team (Late st Contact Info) Description 03/13/2024 Telephone Hematology/Oncology at [address] [phone] Corry Fowler, RN Follow-up Social History Tobacco Use Types [...] Telephone Encounter - Corry Fowler RN - 03/13/2024 2:48 PM EDT I let Bhavna know Jeremiah JudieaudiDEEDEE believes he might have a viral illness considering her did not feel better with the steroids and abx. I advised her to COVID test him, hydrate well and rest. She will monitor for a fever and call us if he does get better in a few days which might warrant on ED visit for evaluation. She agreed with all this and her questions were answered. * Telephone Encounter - Corry Fowler RN - 03/13/2024 12:45 PM EDT Bhavna called stating Marco Antonio is not feeling any better since last week after taking abx and steroids. He is still coughing a lot, not bringing anything up. Sleeps a lot. He is having trouble breathing. He does not have a fever. * Telephone Encounter - Corry Fowler RN - 03/13/2024 12:45 PM EDT ----- Message from Corry Morales RN sent at 03/06/2024 1:26 PM EDT ----- ----- Message ----- From: Lia Barber APRN Sent: 03/06/2024 1:18 PM EDT To: Corry Fowler RN; [facility] Hem Onc [place] 1. Hold therapy today given respiratory symptoms. Treat for COPD exacerbation 2. Nursing, please call to check on him in about 1 week (treatment should be 5 days), they are aware to call us if symptoms worsen. 3. RTC in 2 weeks with repeat labs, visit, and infusion time for pembro documented in this encounter Plan of Treatment Upcoming Encounters Date Type Department Care Team (Late st Contact Info) Description 06/20/2024 10:00 AM EST Office Visit Hematology/Oncology at [address] [phone] Lia Barber APRN [address] [place] [address] DR HEMATOLOGY AND ONCOLOGY [place], [place] [phone] 06/20/2024 10:30 AM EST Infusion Hematology Oncology at [address] [phone] 07/04/2024 11:00 AM EST Office Visit Hematology/Oncology at [address] [phone] Lia Barber APRN [address] [place] [address] DR HEMATOLOGY AND ONCOLOGY [place], [place] [address] 07/04/2024 11:30 AM EST Infusion Hematology Oncology at [address] [phone] documented as of this encounter Visit Diagnoses Not on filedocumented in this encounter Care Teams Key Carrier Relationship Specialty Start Date End Date Kadi Lane PA [facility] [place] [address] PCP - General Family Medicine 07/28/16 documented as of this encounter
--- OUTSIDE RECORDS SUMMARY | 2024-06-20 01:24 | XMS_ITS | Encounter Summary ---
Author Organization [facility] Address [facility] Alie [place] [address] Care Team Providers Care Chief Media Officer Name Role Phone Kadi Lane Primary Care Provider [phone] Encounter Details Date Type Department Care Team (Late st Contact Info) Description 12/27/2023 11:25 AM EDT Ancillary Procedure Radiology Library at [facility] [place] [phone] Zach Vincent MD [facility] H[place]ATOLOGY [place] [address] Social History Tobacco Use Types Packs/Day Years [...] place to sleep or slept in a [place] facility (including now)? No 08/14/2022 DH IPV Inpatient [...] 10:00 AM EST Office Visit Hematology/Oncology at [address] [phone] Lia Barber APRN [address] [place] [address] DR HEMATOLOGY AND ONCOLOGY [place], [place] [phone] 06/20/2024 10:30 AM EST Infusion Hematology Oncology at [address] [phone] 07/04/2024 11:00 AM EST Office Visit Hematology/Oncology at [address] [phone] Lia Barber APRN [address] [place] [address] DR HEMATOLOGY AND ONCOLOGY [place], [place] [address] 07/04/2024 11:30 AM EST Infusion Hematology Oncology at [address] [phone] documented as of this encounter Procedures Procedure Name Priority Date/Time Associated Diagnosis Comments FILM LIBRARY STORAGE ONLY CT CHEST Routine 12/27/2023 11:25 AM EDT documented in this encounter Results * Film Library- Storage Only CT Chest (12/27/2023 11:25 AM EDT) 01/03/2024 4:08 PM EDT Narrative SATNAM - 01/03/2024 4:08 PM EDT This exam is auto-finalizing. It's purpose is for storage only. Zach Vincent MD IMG FILM LIBRARY ORD ERABLES [place], [place] documented in this encounter Visit Diagnoses Not on filedocumented in this encounter Care Teams Chief Media Officer Relationship Specialty Start Date End Date Kadi Lane PA [address] [place] [address] PCP - General Family Medicine 07/28/16 documented as of this encounter
--- OUTSIDE RECORDS SUMMARY | 2024-06-20 01:24 | XMS_ITS | Encounter Summary ---
Author Organization [facility] [place] [address] Care Team Providers Care Open Developer Operator Name Role Phone Kadi Lane Primary Care Provider [phone] Reason for Visit * Reason Onset Date Comments Medication Refill 03/10/2024 Encounter Details Date Type Department Care Team (Late st Contact Info) Description 03/10/2024 Refill Radiation Oncology at [address] [phone] Rafael Pope MD [facility] [place] [address] Social History Tobacco Use Types Packs/Day Years Used Date Smoking Tobacco: Former Cigarettes 2 32 1 956 - 9121 Smokeless Tobacco: Never Alcohol Use Standard Drinks/Week [...] AM EST Office Visit Hematology/Oncology at [address] [phone] Lia Barber APRN [address] [place] [address] DR HEMATOLOGY AND ONCOLOGY [place], [place] [phone] 06/20/2024 10:30 AM EST Infusion Hematology Oncology at [address] [phone] 07/04/2024 11:00 AM EST Office Visit Hematology/Oncology at [address] [phone] Lia Barber APRN [address] [place] [address] DR HEMATOLOGY AND ONCOLOGY [place], [place] [address] 07/04/2024 11:30 AM EST Infusion Hematology Oncology at [address] [phone] documented as of this encounter Visit Diagnoses Not on filedocumented in this encounter Care Teams Open Developer Operator Relationship Specialty Start Date End Date Kadi Lane PA [address] [place] [address] PCP - General Family Medicine 07/28/16 documented as of this encounter
--- OUTSIDE RECORDS SUMMARY | 2024-06-20 01:24 | XMS_ITS | Encounter Summary ---
Author Organization [facility] [place] [address] Care Team Providers Care Community Chest Officer Name Role Phone Kadi Lane Primary Care Provider [phone] Encounter Details Date Type Department Care Team (Latest Contact Info) Description 12/20/2023 Travel Social History Tobacco Use Types Packs/Day [...] 10:00 AM EST Office Visit Hematology/Oncology at [address] [phone] Lia Barber [address] HEMATOLOGY AND ONCOLOGY [place], [place] [address] 06/20/2024 10:30 AM EST Infusion Hematology Oncology at [address] [phone] 07/04/2024 11:00 AM EST Office Visit Hematology/Oncology at [address] [phone] HEMATOLOGY AND ONCOLOGY [place], [place] [address] 07/04/2024 11:30 AM EST Infusion Hematology Oncology at [address] [phone] documented as of this encounter Visit Diagnoses Not on filedocumented in this encounter Care Teams Community Chest Officer Relationship Specialty Start Date End Date Kadi Lane PA [address] [place] [address] PCP - General Family Medicine 07/28/16 documented as of this encounter
--- OUTSIDE RECORDS SUMMARY | 2024-06-20 01:24 | XMS_ITS | Encounter Summary ---
Author Organization [facility] [place] [address] Care Team Providers Care Groover And Striper Operator Name Role Phone Kadi Lane Primary Care Provider [phone] Reason for Visit * Reason Onset Date Comments Shortness of Breath 03/27/2024 Encounter Details Date Type Department Care Team (Late st Contact Info) Description 03/27/2024 Telephone Hematology/Oncology at [address] [phone] Corry Fowler RN Shortness of Breath Social History Tobacco [...] Telephone Encounter - Corry Fowler RN - 03/27/2024 8:30 AM EST Caller: Bhavna Relationship: Spouse/Significant Other Clarified Two Patient Identifiers: [x] Reason For Call: Shortness of Breath Assessment/Symptom Review (onset, location, duration, what makes it better or worse, pertinent positives and negatives): Bhavna reports Marco Antonio breathing was ok for a couple days but now its back. Marco Antonio had finished a short steroid course and abx for possible COPD exacerbation. Marco Antonio reports SOB is about the same. Nofevers. A little cough but non-productive. Review of Systems Related to Reason for Call: System POS NEG Not Applicable Head (ENT /Neuro) [] [x] [] Cardiac [] [x] [] Respiratory [x] [] [] GI [] [x] [] [] [x] [] Musculoskeletal [] [x] [] Integumentary [] [x] [] Mental Health [] [x] [] Select Specific Decision Support Tool Used: None available, provider to review Disposition/Plan of Care: Defer to provider recommendation: INSPECTOR HANDBAG FRAMES will order albuterol inhaler, defer to PCP for steroid inhaler. INSPECTOR HANDBAG FRAMES talked with patients daughter who will communicate this to PCP and patient. Patient/Caregiver verbalizes understanding of plan of care: Yes Patient/Caregiver agrees with plan: Yes Advised patient/caregiver to: call office back for any new or worsening symptoms: fever, increased SOB, increased cough. Patient/Caregiver demonstrates understanding via teach back: Yes * Telephone Encounter - Corry Fowler RN - 03/27/2024 8:30 AM EST ----- Message from Chari oTrres sent at 03/27/2024 8:12 AM EST ----- Marco Antonio's called in to let Marianne know that he his breathing is still not better. They would like a call back [phone] for the next hour and then after that please call her cell documented in this encounter Plan of Treatment Upcoming Encounters Date Type Department Care Team (Late st Contact Info) Description 06/20/2024 10:00 AM EST Office Visit Hematology/Oncology at [address] [phone] Lia Barber INSPECTOR HANDBAG FRAMES [address] [place] [address] DR HEMATOLOGY AND ONCOLOGY [place], [place] [id number] 06/20/2024 10:30 AM EST Infusion Hematology Oncology at [address] [phone] 07/04/2024 11:00 AM EST Office Visit Hematology/Oncology at [address] [phone] iLa Barber APRN [address] [place] [address] DR HEMATOLOGY AND ONCOLOGY [place], [place] [id number] 07/04/2024 11:30 AM EST Infusion Hematology Oncology at [address] [phone] documented as of this encounter Visit Diagnoses Not on filedocumented in this encounter Care Teams Groover And Striper Operator Relationship Specialty Start Date End Date Kadi Lane PA [address] [place] [address] PCP - General Family Medicine 07/28/16 documented as of this encounter
--- OUTSIDE RECORDS SUMMARY | 2024-06-20 01:24 | XMS_ITS | Encounter Summary ---
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 Zach Vincent MD [facility] [place] [address] [facility] Hem Onc Infusion [address] [place] [phone] Referral ID Status Reason Start Date Expiration Date V isits Requested Visits Authorized [id number] Authorized 11/29/2023 11/28/2024 99 99 Encounter Details Date Type Department Care Team (Late st Contact Info) Description 03/21/2024 11:30 AM EST Infusion Hematology Oncology at [address] [phone] High risk medication use; Non-small [...] Progress Notes * Aníbal Solomon, RN - 03/21/2024 11:30 AM EST INFUSION THERAPY ADMINISTRATION NOTES DIAGNOSIS: NSCLC CYCLE #: Cycle 5, Day 1 - Pembrolizumab REASON FOR VISIT: To receive Immunotherapy/Chemotherapy SUBJECTIVE: Marco Antonio (Jose A-LAKISHA) offers no complaints. He is accompanied by his . OBJECTIVE: VSS. Weight is up today. LAB DATA: done today at [facility] - adequate for treatment IV ACCESS: PIV [...] 10:00 AM EST Office Visit Hematology/Oncology at [address] [phone] Lia Barber [address] HEMATOLOGY AND ONCOLOGY [place], [place] [id number] 06/20/2024 10:30 AM EST Infusion Hematology Oncology at [address] [phone] 07/04/2024 11:00 AM EST Office Visit Hematology/Oncology at [address] [phone] HEMATOLOGY AND ONCOLOGY [place], [place] [phone] 07/04/2024 11:30 AM EST Infusion Hematology Oncology at [address] [phone] documented as of this encounter Visit Diagnoses [...] 200 mg, Intravenous, ONCE, 1 dose, On Wed03/21/24 at 1315, Administer over 30 Minutes, Flush Line with NS after each dose, This agent is restricted to outpatient use. Is this drug being given as an outpatient? Yes New Bag 03/21/2024 12:22 PM EST 200 mg 21 6 mL/hr documented in this encounter Care Teams Family Practice Doctor Relationship Specialty Start Date End Date Kadi Lane PA [address] [place] [address] PCP - General Family Medicine 07/28/16 documented as of this encounter
--- OUTSIDE RECORDS SUMMARY | 2024-06-20 01:24 | XMS_ITS | Encounter Summary ---
Author Organization [facility] [place] [address] Care Team Providers Care Overhead Crane Operator Name Role Phone Kadi Lane Primary Care Provider [phone] Encounter Details Date Type Department Care Team (Late st Contact Info) Description 03/01/2024 Interpretation Only Radiology Library at [facility] [place] [phone] Lia Barber, [address] HEMATOLOGY AND ONCOLOGY [place], [place] [id number] Social History Tobacco Use Types Packs/Day Years Used Date Smoking Tobacco: Former Cigarettes 2 32 1 576 - 1987 Smokeless Tobacco: Never Alcohol Use [...] AM EST Office Visit Hematology/Oncology at [address] [phone] Lia Barber APRN [address] [place] [address] DR HEMATOLOGY AND ONCOLOGY [place], [place] [phone] 06/20/2024 10:30 AM EST Infusion Hematology Oncology at [address] [phone] 07/04/2024 11:00 AM EST Office Visit Hematology/Oncology at [address] [phone] Lia Barber APRN [address] [place] [address] DR HEMATOLOGY AND ONCOLOGY [place], [place] [address] 07/04/2024 11:30 AM EST Infusion Hematology Oncology at [address] [phone] documented as of this encounter Procedures Procedure Name Priority Date/Time Associated Diagnosis Comments FILM LIBRARY STORAGE ONLY CT CHEST Routine 03/01/2024 2:55 PM EDT documented in this encounter Results * Film Library- Storage Only CT Chest (03/01/2024 2:55 PM EDT) 03/04/2024 9:50 PM EDT Narrative [facility] - 03/04/2024 9:50 PM EDT This exam is auto-finalizing. It's purpose is for storage only. Lia Barber APRN [facility] FILM LIBRARY ORDERABLES Performing Organization Address City/State/[facility] de Phone Number [place], [place] documented in this encounter Visit Diagnoses Not on filedocumented in this encounter Care Teams Overhead Crane Operator Relationship Specialty Start Date End Date Kadi Lane PA [address] [place] [address] PCP - General Family Medicine 07/28/16 documented as of this encounter
--- OUTSIDE RECORDS SUMMARY | 2024-06-20 01:24 | XMS_ITS | Encounter Summary ---
Author Organization [facility] [place] [address] Care Team Providers Care Bead Maker Name Role Phone Kadi Lane Primary Care Provider Encounter Details Date Type Department Care Team (Late st Contact Info) Description 02/14/2024 Notes Only Hematology/Oncology at [address] [phone] Princess Rodriguez, INTERNATIONAL ACCOUNT REPRESENTATIVE OFFICE OF CARE MANAGEMENT Social History Tobacco Use Types Packs/Day Years Used Date Smoking Tobacco: Former Cigarettes 2 32 1 066 - 1623 Smokeless Tobacco: Never Alcohol Use Standard Drinks/Week [...] as of this encounter Progress Notes * Princess Rodriguez MSW - 02/14/2024 10:27 AM EDT Follow up with Marco Antonio and his during his infusion visit today. His indicated they just gotback from a 8 day cruise up to [facility]. They were pleased that Marco Antonio did well on the trip and they enjoyed their time. His continues as Marco Antonio's primary caregiver. They did not identify any new needs. Offered support. Will continue as a resource to Marco Antonio and his . Brief assessment Supportive Counseling documented in this encounter Plan of Treatment Upcoming Encounters Date Type Department Care Team (Late st Contact Info) Description 06/20/2024 10:00 AM EST Office Visit Hematology/Oncology at [address] [phone] HEMATOLOGY AND ONCOLOGY [place], [place] [phone] 06/20/2024 10:30 AM EST Infusion Hematology Oncology at [address] [phone] 07/04/2024 11:00 AM EST Office Visit Hematology/Oncology at [address] [phone] HEMATOLOGY AND ONCOLOGY [place], [place] [id number] 07/04/2024 11:30 AM EST Infusion Hematology Oncology at [address] [phone] documented as of this encounter Visit Diagnoses Not on filedocumented in this encounter Care Teams Bead Maker Relationship Specialty Start Date End Date Kadi Laen PA [address] [place] [address] PCP - General Family Medicine 07/28/16 documented as of this encounter
--- OUTSIDE RECORDS SUMMARY | 2024-06-20 01:24 | XMS_ITS | Encounter Summary ---
Author Organization [facility] [place] [address] Care Team Providers Care Rackman Name Role Phone Kadi Lane Primary Care Provider [phone] Reason for Visit * Reason Onset Date Comments Follow-up 01/31/2024 Question about C T scan Encounter Details Date Type Department Care Team (Late st Contact Info) Description 01/31/2024 Telephone Hematology/Oncology at [address] [phone] Yuridia Cortés, RN Follow-up (Question about CT scan) Social History Tobacco Use Types Packs/Day Years Used Date Smoking Tobacco: Former Cigarettes 2 32 1 030 - 7326 Smokeless Tobacco: Never Alcohol Use Standard Drinks/Week [...] encounter Miscellaneous Notes * Telephone Encounter - Yuridia Cortés RN - 01/31/2024 2:53 PM EDT Left message for Tess regarding his request to schedule a CT scan, his last CT was on 12/26, no current order for updated CT scan. documented in this encounter Plan of Treatment Upcoming Encounters Date Type Department Care Team (Late st Contact Info) Description 06/20/2024 10:00 AM EST Office Visit Hematology/Oncology at [address] [phone] HEMATOLOGY AND ONCOLOGY [place], [place] [address] 06/20/2024 10:30 AM EST Infusion Hematology Oncology at [address] [phone] 07/04/2024 11:00 AM EST Office Visit Hematology/Oncology at [address] [phone] HEMATOLOGY AND ONCOLOGY [place], [place] [phone] 07/04/2024 11:30 AM EST Infusion Hematology Oncology at [address] [phone] documented as of this encounter Visit Diagnoses Not on filedocumented in this encounter Care Teams Rackman Relationship Specialty Start Date End Date Kadi Lane PA [address] [place] [address] PCP - General Family Medicine 07/28/16 documented as of this encounter
--- OUTSIDE RECORDS SUMMARY | 2024-06-20 01:24 | XMS_ITS | Encounter Summary ---
Author Organization [facility] [place] [address] Care Team Providers Care Supervisor Remelt Name Role Phone Kadi Lane Primary Care Provider [phone] Encounter Details Date Type Department Care Team (Latest Contact Info) Description 12/09/2023 8:44 AM EDT - 12/09/2023 11:59 PM EDT Hospital [place] [phone] Discharge Disposition: Home Social History Tobacco Use [...] Sig Dispensed Refills Start Date End Date metoprolol succinate XL (Toprol-XL) 25 mg ER [...] type, unspecified whether angina present, unspecified whether kashia or transplanted heart Take 1 tablet by [...] by mouth daily. guaiFENesin (Robitussin) 20 mg/mL Liquid Take 20 mLs by mouth 3 times daily as needed for Cough. 500 mL 11/03/2023 03/10/2024 documented as of this encounter Plan of Treatment Upcoming Encounters Date Type Department Care Team (Late st Contact Info) Description 06/20/2024 10:00 AM EST Office Visit Hematology/Oncology at [address] [phone] Lia Barber APRN [address] [place] [address] DR HEMATOLOGY AND ONCOLOGY [place], [place] [id number] 06/20/2024 10:30 AM EST Infusion Hematology Oncology at [address] [phone] 07/04/2024 11:00 AM EST Office Visit Hematology/Oncology at [address] [phone] Lia Barber APRN [address] [place] [address] DR [place]EM[place]Y [place] [address] 07/04/2024 11:30 AM EST Infusion Hematology Oncology at [address] [phone] documented as of this encounter Procedures Procedure Name Priority Date/Time Associated Diagnosis Comments PATHOLOGY SLIDE REVIEW Routine 12/09/2023 10:50 AM EDT PATHOLOGY SLIDE REVIEW Routine 12/09/2023 10:50 AM EDT documented in this encounter Results * Smear Review Report (12/09/2023 10:50 AM EDT) Smear Review Report [id number] ? Location: [facility] The signing pathologist has (i) examined the relevant preparation(s) for the specimen(s) and (ii) rendered or confirmed the diagnosis(es). . ? Smear Review DIAGNOSIS PERIPHERAL BLOOD, SMEAR: - Leukopenia with neutropenia and lymphopenia (See Discussion) - Macrocytic anemia; no increase in schistocytes Electronically signed by: ?Vipul Matthews DO Verified: ??12/11/2023 10:37 ??Pathologist Performed at: ??-[facility] Dept. of Pathology, [place] [address] Knifeman: Brenda Garcia MD, FCAP, ??CLIA Certificate: [id number] DISCUSSION No diagnostic morphologic abnormalities, such as increased schistocytes or overt features of dyspoiesis, are appreciated. There are many potential causes for acquired neutropenia including various infections, medications, nutritional deficits, autoimmunity, and rheumatologic conditions (among others). Large granular lymphocytes do not appear significantly increased in number, and given the lack of morphologic abnormalities primary disorder of hematopoiesis is not favored. ADDITIONAL STUDIES WBC 1.08K/ul; RBC 3.09 M/ul; Hgb 10.0; MCV 98.1; RDW 14.7%; PLT 170K/ul Morphology: RBCs: Decreased in number, macrocytic, and normochromic. Polychromasia and anisopoikilocytos is with few ovalocytes. WBCs: Lymphopenia and neutropenia. Neutrophils show adequate morphology. Rare large granular lymphocytes but not overtly increased. Platelets: Normal in number with adequate morphology. 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 [facility] 12/09/2023 10:5 0 AM EDT Zach Vincent MD HEMATOLOGY ORDERABLE S Performing Organization Address City/[facility]/ZIP Co de Phone Number [facility] [place] [address] * Peripheral Smear Review (12/09/2023 10:50 AM EDT) Peripheral Smear Review See Comment [facility] Comment: When completed by the Pathologist, report [id number] will display under Hematopathology Reports. Blood Venous Draw / Unknown 12/09/2023 10:50 AM EDT 12/10/2023 10:53 AM EDT Narrative Resulting Agency Comment Spec In Lab Zach Vincent MD HEMATOLOGY ORDERABLE S Performing Organization Address City/[facility]/ZIP Co de Phone Number [facility] [place] [address] documented in this encounter Visit Diagnoses Not on filedocumented in this encounter Care Teams Supervisor Remelt Relationship Specialty Start Date End Date Kadi Lane PA [address] [place] [address] PCP - General Family Medicine 07/28/16 documented as of this encounter
--- OUTSIDE RECORDS SUMMARY | 2024-06-20 01:24 | XMS_ITS | Encounter Summary ---
Author [facility] [place] [address] Care Team Providers Care Sand Mill Grinder Name Role Phone Kadi Lane Primary Care Provider [phone] Encounter Details Date Type Department Care Team (Latest Contact Info) Description 03/06/2024 Travel Social History Tobacco Use Types Packs/Day [...] 10:00 AM EST Office Visit Hematology/Oncology at [address] [phone] Lia Barber [address] HEMATOLOGY AND ONCOLOGY [place], [place] [address] 06/20/2024 10:30 AM EST Infusion Hematology Oncology at [address] [phone] 07/04/2024 11:00 AM EST Office Visit Hematology/Oncology at [address] [phone] [address] HEMATOLOGY AND ONCOLOGY [place], [place] [address] 07/04/2024 11:30 AM EST Infusion Hematology Oncology at [address] [phone] documented as of this encounter Visit Diagnoses Not on filedocumented in this encounter Care Teams Sand Mill Grinder Relationship Specialty Start Date End Date Kadi Lane PA [address] [place] [address] PCP - General Family Medicine 07/28/16 documented as of this encounter
--- OUTSIDE RECORDS SUMMARY | 2024-06-20 01:24 | XMS_ITS | Encounter Summary ---
[place] [address] Care Team Providers Care Virtualization Architect Name Role Phone Kadi Lane Primary Care Provider [phone] Encounter Details Date Type Department Care Team (Late st Contact Info) Description 12/04/2023 Telephone Hematology Oncology Level [address] [place] [phone] Wilmer Cevallos MD [facility] HEMATOLOGY/[place] [address] Social History Tobacco Use Types Packs/Day Years Used Date Smoking Tobacco: Former Cigarettes 2 32 1 006 - 1987 Smokeless Tobacco: Never Alcohol Use [...] encounter Miscellaneous Notes * Telephone Encounter - Wilmer Cevallos MD - 12/04/2023 10:13 AM EDT Received a call from Marco Antonio' daughter this morning He is having b/l LE neuropathy (feet only) . Last received carbo/abraxane on Wednesday Tried morphine and this didn't help. She has voltaren at this house and asking if she can try this. Ok for her to try voltaren. If this does not work she can try topical lidocaine documented in this encounter Plan of Treatment Upcoming Encounters Date Type Department Care Team (Late st Contact Info) Description 06/20/2024 10:00 AM EST Office Visit Hematology/Oncology at [address] [phone] HEMATOLOGY AND ONCOLOGY [place], [place] [phone] 06/20/2024 10:30 AM EST Infusion Hematology Oncology at [address] [phone] 07/04/2024 11:00 AM EST Office Visit Hematology/Oncology at [address] [phone] HEMATOLOGY AND ONCOLOGY [place], [place] [phone] 07/04/2024 11:30 AM EST Infusion Hematology Oncology at [address] [phone] documented as of this encounter Visit Diagnoses Not on filedocumented in this encounter Care Teams Virtualization Architect Relationship Specialty Start Date End Date Kadi Lane PA [address] [place] [address] PCP - General Family Medicine 07/28/16 documented as of this encounter
--- OUTSIDE RECORDS SUMMARY | 2024-06-20 01:24 | XMS_ITS | Encounter Summary ---
Author Organization [facility] [place] [address] Care Team Providers Care House Worker General Name Role Phone Kadi Lane Primary Care Provider [phone] Reason for Visit * Reason Onset Date Comments Follow-up 11/30/2023 Follow up after first cycle of chemotherapy/immunotherapy. Marco Antonio received pembrolizumab, paclitaxel (3 hr), and carboplatin. He reports that he slept well overnight. He has eaten two good meals and is looking forward to supper. His bowels moved normally this morning. They are reminded to call for any questions or concerns. Dr. Vincent updated with this note. Encounter Details Date Type Department Care Team (Late st Contact Info) Description 11/30/2023 Telephone Hematology Oncology at [address] [phone] Aminata Celaya, RN Follow-up (Follow up after first cycle of chemotherapy/immunother apy. Marco Antonio received pembrolizumab, paclitaxel (3 hr), and carboplatin. He reports that he slept well overnight. He has eaten two good meals and is looking forward to supper. His bowels moved normally this morning. They are reminded to call for any questions or concerns. Dr. Vincent updated with this note.) Social History Tobacco Use Types Packs/Day Years [...] 10:00 AM EST Office Visit Hematology/Oncology at [address] [phone] HEMATOLOGY AND ONCOLOGY [place], [place] [phone] 06/20/2024 10:30 AM EST Infusion Hematology Oncology at [address] [phone] 07/04/2024 11:00 AM EST Office Visit Hematology/Oncology at [address] [phone] [address] HEMATOLOGY AND ONCOLOGY [place], [place] [phone] 07/04/2024 11:30 AM EST Infusion Hematology Oncology at [address] [phone] documented as of this encounter Visit Diagnoses Not on filedocumented in this encounter Care Teams House Worker General Relationship Specialty Start Date End Date Kadi Lane PA [address] [place] [address] PCP - General Family Medicine 07/28/16 documented as of this encounter
--- OUTSIDE RECORDS SUMMARY | 2024-06-20 01:24 | XMS_ITS | Encounter Summary ---
Author Organization [facility] [place] [address] Care Team Providers Care Diesel Engine Pipe Fitter Name Role Phone Kadi Lane Primary Care Provider [phone] Encounter Details Date Type Department Care Team (Late st Contact Info) Description 03/01/2024 2:55 PM EDT Ancillary Procedure Radiology Library at [facility] NEVAEH Bautista [phone] Lia Barber[address] HEMATOLOGY AND ONCOLOGY [place], [place] [phone] Social History Tobacco Use Types Packs/Day Years Used Date Smoking Tobacco: Former Cigarettes 2 32 1 546 - 1987 Smokeless Tobacco: Never Alcohol Use [...] 10:00 AM EST Office Visit Hematology/Oncology at [address] [phone] Lia Barber APRN [address] [place] [address] DR [place] [address] 06/20/2024 10:30 AM EST Infusion Hematology Oncology at [address] [phone] 07/04/2024 11:00 AM EST Office Visit Hematology/Oncology at [address] [phone] Lia Barber APRN [address] [place] [address] DR HEMATOLOGY AND ONCOLOGY [place], [place] [address] 07/04/2024 11:30 AM EST Infusion Hematology Oncology at [address] [phone] documented as of this encounter Procedures Procedure Name Priority Date/Time Associated Diagnosis Comments FILM LIBRARY STORAGE ONLY CT CHEST Routine 03/01/2024 2:55 PM EDT documented in this encounter Results * Film Library- Storage Only CT Chest (03/01/2024 2:55 PM EDT) 03/04/2024 9:50 PM EDT Narrative [facility] - 03/04/2024 9:50 PM EDT This exam is auto-finalizing. It's purpose is for storage only. Lia Barber APRN IMG FILM LIBRARY ORDERABLES Performing Organization Address City/State/[facility] Co de Phone Number [place], [place] documented in this encounter Visit Diagnoses Not on filedocumented in this encounter Care Teams Diesel Engine Pipe Fitter Relationship Specialty Start Date End Date Kadi Lane PA [address] [place] [address] PCP - General Family Medicine 07/28/16 documented as of this encounter
--- OUTSIDE RECORDS SUMMARY | 2024-06-20 01:24 | XMS_ITS | Encounter Summary ---
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 Procedures CT Chest w Contrast Zach Shipley MD [facility] DR HEMATOLOGY [place] [address] [phone] Referral ID Status Reason Start Date Expiration Date V isits Requested Visits Authorized [id number] Closed Specialty Service Requested 12/20/2023 06/21/2025 1 1 Encounter Details Date Type Department Care Team (Late st Contact Info) Description 12/20/2023 9:00 AM EDT Office Visit Hematology/Oncolog y at [address] [phone] Zach Shipley MD [facility] DR HEMATOLOGY [place] [address] Lia Barber, DEFENSE ANALYST [address] [facility] [facility] [address] HEMATOLOGY AND ONCOLOGY [place], [place] [address] Non-small cell cancer of right lung; 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; Neuropathy due to chemotherapeutic drug Social History Tobacco Use Types Packs/Day Years [...] Sign Reading Time Taken Comments Blood Pressure 142/61 12/20/2023 8:48 AM EDT Pulse 64 12/20/2023 8:48 AM EDT Temperature 36.1 ??C (96.9 ??F) 12/20/2023 8:48 AM ED T Respiratory Rate 18 12/20/2023 8:48 AM EDT Oxygen Saturation 100% 12/20/2023 8:48 AM EDT Inhaled Oxygen Concentration - - Weight 57.3 kg (126 lb 6.4 oz) 12/20/2023 8:48 A M EDT Height 168.9 cm (5' 6.5) 12/20/2023 8:48 AM EDT Body Mass Index 20.1 12/20/2023 8:48 AM EDT documented in this encounter Progress Notes * Zach Shipley MD - 12/20/2023 9:00 AM EDT Images from the original note were not included. Thoracic Oncology [facility] [place] [address] [phone] Marco Antonio Xiong is being seen for [...] on 11.29.23 with upfront dose reductions. Plan: - Labs and toxicities assessed and acceptable for ongoing treatment. Will continue with current dose reductions given that his ANC has improved on today's labs. Follow the g1 neuropathy for now. - Restage with CT scan after this cycle - RTC in 3 weeks Zach Shipley MD, MS 12/20/2023 Thoracic Oncology [facility] CC: ADRIANO Sheriff HPI/Interval History/Subjective: He is accompanied by his . Generally tolerated the first cycle well he says. Did have some numbness and tingling in his fingers and toes that subsided after a week. Is a little bit distressed about the hair loss but realizes it is something he can live with. No nausea. No fevers or infections. He generally has a good appetite. His cough has gone away. He has no significant pain at this point and only needed 2 doses of the morphine. No diarrhea. No rashes. Dyphagia has resolved and his appetite is quite good. Able to get out and about do some fishing Social History/Support Network: Home situation: . Lives 2 hours away. 3 chuildren. 5 grandsons and 2 great grandauhters Employment: Retired. [employer]. Now likes to be outdoorrs fishing. [place]. Tobacco use: Quit in 1986. 2 ppd at the time. [id number] history Alcohol use: uit then as well [...] therapeutically aspirated. The bronchoscope was removed. [employer] robotic systemwas used for pre-procedure planning, including 3D rendering with image post-processing on an independent workstation. [employer] robotic system was then used for intra- [...] mediastinum, representing metastatic adenopathy. 11.29.23 Started carboplatin/paclitaxel/pembrolizumab 11/29/2023 12:49 PM 11/29/2023 1:31 PM 11/29/2023 5:26 PM ONCBCN ONCOLOGY (AMB) Day, Cycle Day 1, Cycle 1 CARBOplatin (Paraplatin) IV 326 mg PACLitaxeL (Taxol) IV 150 mg/m2/dose = 239 mg pembrolizumab 25 mg/mL (Keytruda) IV 200 mg Patient Active Problem List Diagnosis [...] Exam: Wt Readings from Last 3 Encounters: 11/29/23 55.7 kg (122 lb 12.8 oz) 11/24/23 54.2 kg (119 lb 6.4 oz) 11/08/23 56.9 kg (125 lb 6.4 oz) Temp Readings from Last 3 Encounters: 11/29/23 36.2 ??C (97.1 ??F) (Temporal) 11/24/23 36.2 ??C (97.1 ??F) (Temporal) 11/08/23 36.4 ??C (97.5 ??F) (Temporal) BP Readings from Last 3 Encounters: 11/29/23 136/68 11/24/23 133/69 11/08/23 137/61 Pulse Readings from Last 3 Encounters: 11/29/23 73 11/24/23 80 11/08/23 86 There is no height or weight on file to calculate BSA. Wt Readings from Last 3 Encounters: 11/29/23 55.7 kg (122 lb 12.8 oz) 11/24/23 54.2 kg (119 lb 6.4 oz) 11/08/23 56.9 kg (125 lb 6.4 oz) KPS Score ECOG Grade [...] Thought content normal. Review of Laboratory Data: No results found for this or any previous visit (from the past 72 hour(s)). 12/20/2023 Sodium 139 potassium 4.3 chloride 102 BUN 7 creatinine 0.8 glucose 99 calcium 9.2 magnesium 2.0 total bilirubin 0.52 AST 29 ALT 33 alk phos 204 albumin 3.1 which is stable TSH 1.54 Free T40.94 White blood cell count 7.33 hemoglobin 11.5 platelet count 275,000 with an absolute neutrophil count of 5.27 Review of Imaging Data: I personally reviewed the reports and images in the studies as detailed in the oncology overview above. Review of Pathology Data: documented in this encounter Miscellaneous Notes * Addendum Note - Zach Shipley MD - 12/20/2023 9:00 AM EDTAddended by: ZACH SHIPLEY on: 12/20/2023 10:12 AM Modules accepted: Orders documented in this encounter Plan of Treatment Upcoming Encounters Date Type Department Care Team (Late st Contact Info) Description 06/20/2024 10:00 AM EST Office Visit Hematology/Oncology at [address] [phone] Lia Barber [address] HEMATOLOGY AND ONCOLOGY [place], [place] [address] 06/20/2024 10:30 AM EST Infusion Hematology Oncology at [address] [phone] 07/04/2024 11:00 AM EST Office Visit Hematology/Oncology at [address] [phone] Lia Barber [address] HEMATOLOGY AND ONCOLOGY [place], [place] [address] 07/04/2024 11:30 AM EST Infusion Hematology Oncology at [address] [phone] Scheduled Orders Name Type Priority Associated Diagnoses Orde r Schedule CT Chest w Contrast Imaging Routine 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 Expected: 01/03/2024 (Approximate), Expires: 12/19/2024 documented as of this encounter Visit Diagnoses Diagnosis 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
--- OUTSIDE RECORDS SUMMARY | 2024-06-20 01:24 | XMS_ITS | Encounter Summary ---
Author Organization [facility] [place] [address] Care Team Providers Care Control Specialist Name Role Phone Kadi Lane Primary Care Provider [phone] Encounter Details Date Type Department Care Team (Late st Contact Info) Description 12/27/2023 Interpretation Only Radiology Library [place] [phone] Zach Vincent MD [facility] HEMATOLOGY [place] [address] Social History Tobacco Use Types Packs/Day Years Used Date Smoking Tobacco: Former Cigarettes 2 32 1 856 - 1987 Smokeless Tobacco: Never Alcohol Use [...] AM EST Office Visit Hematology/Oncology at [address] [phone] Lia Barber APRN [address] [place] [address] DR HEMATOLOGY AND ONCOLOGY [place], [place] [address] 06/20/2024 10:30 AM EST Infusion Hematology Oncology at [address] [phone] 07/04/2024 11:00 AM EST Office Visit Hematology/Oncology at [address] [phone] Lia Barber APRN [address] [place] [address] DR HEMATOLOGY AND ONCOLOGY [place], [place] [phone] 07/04/2024 11:30 AM EST Infusion Hematology Oncology at [address] [phone] documented as of this encounter Procedures Procedure Name Priority Date/Time Associated Diagnosis Comments FILM LIBRARY STORAGE ONLY CT CHEST Routine 12/27/2023 11:25 AM EDT documented in this encounter Results * Film Library- Storage Only CT Chest (12/27/2023 11:25 AM EDT) 01/03/2024 4:08 PM EDT Narrative RAD - 01/03/2024 4:08 PM EDT This exam is auto-finalizing. It's purpose is for storage only. Zach Vincent MD IMG FILM LIBRARY ORD ERABLES [place], [place] documented in this encounter Visit Diagnoses Not on filedocumented in this encounter Care Teams Control Specialist Relationship Specialty Start Date End Date Kadi Lane PA [address] [place] [address] PCP - General Family Medicine 07/28/16 documented as of this encounter
--- OUTSIDE RECORDS SUMMARY | 2024-06-20 01:24 | XMS_ITS | Encounter Summary ---
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 Zach Vincent MD [facility] DR H[place]AT[place]Y [place] [address] Stj Hem Onc Infusion [address] [place] [phone] Referral ID Status Reason Start Date Expiration Date V isits Requested Visits Authorized [id number] Authorized 11/29/2023 11/28/2024 99 99 Encounter Details Date Type Department Care Team (Late st Contact Info) Description 01/12/2024 9:00 AM EDT Infusion Hematology Oncology at [address] [phone] High risk medication use; Non-small [...] Progress Notes * Aníbal Solomon, RN - 01/12/2024 9:00 AM EDT INFUSION THERAPY ADMINISTRATION NOTES DIAGNOSIS: NSCLC CYCLE #: Cycle 3, Day 1 - Pembrolizumab, Carboplatin REASON FOR VISIT: To begin a [...] clinic hours (8am-5pm Wednesday-Wednesday): pt. can call [phone] with questions or concerns. After clinic hours (5pm-8am Wednesday-Wednesday and weekends) pt can call [phone] and ask for the cardiology tech/oncologist electronic gluer. Marco Antonio Xiong verbalized understanding of potential chemotherapy side effects [...] 10:00 AM EST Office Visit Hematology/Oncology at [address] [phone] Lia Barber APRN [address] [place] [address] DR H[place]AT[place]Y [place] [address] 06/20/2024 10:30 AM EST Infusion Hematology Oncology at [address] [phone] 07/04/2024 11:00 AM EST Office Visit Hematology/Oncology at [address] [phone] Lia Barber APRN [address] [place] [address] DR HEMATOLOGY AND ONCOLOGY [place], [place] [phone] 07/04/2024 11:30 AM EST Infusion Hematology Oncology at [address] [phone] documented as of this [...] over 2 Minutes, ONCE, 1 dose, On Wed01/12/24 at 0930, Alternative administration of IV push over 2 minutes is a recommendation from the stencil cutter. Administer prior to chemotherapy., Routine Given 01/12/2024 9:31 AM EDT 130 mg CARBOplatin (Paraplatin) 326 mg in dextrose 5% 282.6 mL infusion 326 mg (Target AUC = 4), Intravenous, ONCE, 1 dose, On Wed01/12/24 at 1030, Administer over 30 Minutes, Warning Vesicant/Irritant Medication New Bag 01/12/2024 10:31 AM EDT 326 mg 565.2 mL/hr dexAMETHasone (Decadron) tablet 10 mg 10 mg, Oral, ONCE, 1 dose, On Wed01/12/24 at 1000, Administer 30 minutes prior to PACLitaxeL., Routine Given 01/12/2024 9:30 AM EDT 10 mg palonosetron (Aloxi) (0.05 mg/mL) injection 0.25 mg 0.25 mg, Intravenous, ONCE, 1 dose, On Wed01/12/24 at 0930, Administer over 30 seconds., Routine Given 01/12/2024 9:30 AM EDT 0.25 mg pembrolizumab (Keytruda) 200 mg in sodium chloride 0.9% 108 mL infusion 200 mg, Intravenous, ONCE, 1 dose, On Wed01/12/24 at 1030, Administer over 30 Minutes, Flush Line with NS after each dose, This agent is restricted to outpatient use. Is this drug being given as an outpatient? Yes New Bag 01/12/2024 9:54 AM EDT 200 mg 216 mL/hr documented in this encounter Care Teams Civil Engineering Professor Relationship Specialty Start Date End Date Kadi Lane [place] [address] PCP - General Family Medicine 07/28/16 documented as of this encounter
--- OUTSIDE RECORDS SUMMARY | 2024-06-20 01:25 | XMS_ITS | Encounter Summary ---
[place] [address] Care Team Providers Care Manager Payment Name Role Phone Kadi Lane Primary Care Provider [phone] Reason for Visit * Reason Comments Medication Refill Encounter Details Date Type Department Care Team (Late st Contact Info) Description 10/20/2023 Refill Cardiology at [address] [phone] Isaac Ledbetter MD [facility] [place] [address] Medication Refill Social History Tobacco Use Types Packs/Day Years Used Date Smoking Tobacco: Former Cigarettes 2 32 1 066 - 1987 Smokeless Tobacco: Never Alcohol Use [...] AM EST Office Visit Hematology/Oncology at [address] [phone] Lia Barber APRN [address] [place] [address] DR [place] [address] 06/20/2024 10:30 AM EST Infusion Hematology Oncology at [address] [phone] 07/04/2024 11:00 AM EST Office Visit Hematology/Oncology at [address] [phone] Lia Barber APRN [address] [place] [address] DR HEMATOLOGY AND ONCOLOGY [place], [place] [id number] 07/04/2024 11:30 AM EST Infusion Hematology Oncology at [address] [phone] documented as of this encounter Visit Diagnoses Diagnosis Coronary artery disease, unspecified vessel or lesion type, unspecified whether angina present, unspecified whether gakona or transplanted heart- Primary Chest pain, unspecified type documented in this encounter Care Teams Manager Payment Relationship Specialty Start Date End Date Kadi Lane PA [address] [place] [address] PCP - General Family Medicine 07/28/16 documented as of this encounter
--- OUTSIDE RECORDS SUMMARY | 2024-06-20 01:25 | XMS_ITS | Encounter Summary ---
Author Organization [facility] [place] [address] Care Team Providers Care Master Esthetician Name Role Phone Kadi Lane Primary Care Provider [phone] Encounter Details Date Type Department Care Team (Late st Contact Info) Description 09/23/2023 Orders Only [place] [address] Rafael Pope MD [facility] [place] [address] Social History Tobacco Use Types Packs/Day Years Used Date Smoking Tobacco: Former Cigarettes 2 32 1 276 - 1987 Smokeless Tobacco: Never Alcohol Use [...] 10:00 AM EST Office Visit Hematology/Oncology at [address] [phone] Lia Barber APRN [address] [place] [address] DR HEMATOLOGY AND ONCOLOGY [place], [place] [address] 06/20/2024 10:30 AM EST Infusion Hematology Oncology at [address] [phone] 07/04/2024 11:00 AM EST Office Visit Hematology/Oncology at [address] [phone] Lia Barber APRN [address] [place] [address] DR HEMATOLOGY AND ONCOLOGY [place], [place] [phone] 07/04/2024 11:30 AM EST Infusion Hematology Oncology at [address] [phone] documented as of this encounter Visit Diagnoses Not on filedocumented in this encounter Care Teams Master Esthetician Relationship Specialty Start Date End Date Kadi Lane PA [address] [place] [address] PCP - General Family Medicine 07/28/16 documented as of this encounter
--- OUTSIDE RECORDS SUMMARY | 2024-06-20 01:25 | XMS_ITS | Encounter Summary ---
Author Organization [facility] [address] Care Team Providers Care Hazardous Materials Waste Technician Name Role Phone Kadi Lane Primary Care Provider [phone] Encounter Details Date Type Department Care Team (Latest Contact Info) Description 11/08/2023 Travel Social History Tobacco Use Types Packs/Day [...] place to sleep or slept in a assisted (including now)? No 08/14/2022 DH IPV Inpatient [...] 10:00 AM EST Office Visit Hematology/Oncology at [address] [phone] Lai Barber [address] HEMATOLOGY [place]COLOGY [place], [place] [address] 06/20/2024 10:30 AM EST Infusion Hematology Oncology at [address] [phone] 07/04/2024 11:00 AM EST Office Visit Hematology/Oncology at [address] [phone] HEMATOLOGY AND ONCOLOGY [place], [place] [address] 07/04/2024 11:30 AM EST Infusion Hematology Oncology at [address] [phone] documented as of this encounter Visit Diagnoses Not on filedocumented in this encounter Care Teams Hazardous Materials Waste Technician Relationship Specialty Start Date End Date Kadi Lane PA [address] [place] [address] PCP - General Family Medicine 07/28/16 documented as of this encounter
--- OUTSIDE RECORDS SUMMARY | 2024-06-20 01:25 | XMS_ITS | Encounter Summary ---
Author Organization [facility] [address] Care Team Providers Care Oil And Gas Well Treatment Operator Name Role Phone Kadi Lane Primary Care Provider [phone] Encounter Details Date Type Department Care Team (Latest Contact Info) Description 11/03/2023 Travel Social History Tobacco Use Types Packs/Day [...] place to sleep or slept in a alf (including now)? No 08/14/2022 DH IPV Inpatient [...] AM EST Office Visit Hematology/Oncology at [address] [phone] Lia Barber [address] HEMATOLOGY AND ONCOLOGY [place], [place] [address] 06/20/2024 10:30 AM EST Infusion Hematology Oncology at [address] [phone] 07/04/2024 11:00 AM EST Office Visit Hematology/Oncology at [address] [phone] HEMATOLOGY AND ONCOLOGY [place], [place] [address] 07/04/2024 11:30 AM EST Infusion Hematology Oncology at [address] [phone] documented as of this encounter Visit Diagnoses Not on filedocumented in this encounter Care Teams Oil And Gas Well Treatment Operator Relationship Specialty Start Date End Date Kadi Lane PA [address] [place] [address] PCP - General Family Medicine 07/28/16 documented as of this encounter
--- OUTSIDE RECORDS SUMMARY | 2024-06-20 01:25 | XMS_ITS | Encounter Summary ---
Author Organization [facility] [place] [address] Care Team Providers Care Linux Unix Engineer Name Role Phone Kadi Lane Primary Care Provider [phone] Reason for Referral * Consultation (Routine) - Closed Specialty Diagnoses / Procedures Referred By Contac t Referred To Contact Radiation Oncology Diagnoses Non-small cell cancer of right lung Procedures Simulation for Radiation Therapy Planning Zhanna Pope MD [facility] [place] [address] [facility] Rad Onc Office [address] [place] [phone] Referral ID Status Reason Start Date Expiration Date V isits Requested Visits Authorized [id number] Closed Consult, Test & Treat 10/20/2023 10/19/2024 1 11 * Consultation (Routine) - Duplicate Referral Specialty Diagnoses / Procedures Referred By Contmarlys t Referred To Contact Hematology and Oncology Diagnoses Non-small cell cancer of right lung Zhanna Pope MD [facility] RADI[place] [address] Zach Vincent MD [address] [place] [address] [place] [address] Referral ID Status Reason Start Date Expiration Date Visits Requested Visits Authorized [id number] Duplicate Referral Consult, Test & Treat 10/20/2023 10/19/2024 1 1 Encounter Details Date Type Department Care Team (Late st Contact Info) Description 10/20/2023 1:30 PM EDT Office Visit Radiation Oncology at [address] [phone] Zhanna Pope MD [facility] DR RADIATION [place] [address] Non-small cell cancer of right lung Social History Tobacco Use Types Packs/Day Years [...] Sign Reading Time Taken Comments Blood Pressure - - Pulse 85 10/20/2023 1:49 PM EDT Temperature 37 ??C (98.6 ??F) 10/20/2023 1:4 9 PM EDT Respiratory Rate - - Oxygen Saturation 100% 10/20/2023 1:4 9 PM EDT Inhaled Oxygen Concentration - - Weight 58.8 kg (129 lb 9.6 oz) 10/20/19 1:49 PM EDT with shoes Height - - Body Mass Index 20.6 09/01/2023 11:06 AM EDT documented in this encounter Progress Notes * Zhanna Pope MD - 10/20/2023 1:30 PM EDT Images from the original note were not included. 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 Similar moderate right pleural effusion. UNEXPECTED FINDING of increased mediastinal lymph nodes Given concerns regarding an intercurrent illness, short follow up imaging was recommended CT Chest w/ contrast 08/16/23: Bronchoscopy with EBUS-Guided Transbronchial Needle Aspiration, TBNA additional stations, tumor excision 09/15/23: -Findings: The trachea, bilateral mainstem bronchi, and the bilateral segmental bronchi were all visualized. There was evidence of tumor eroding through the main rai. The distal airways were patent to the subsegmental level. Tumor excision was performed with 2.0 forceps. EBUS confirmed the presence of an enlarged node at stations 7 and 4R as well as a sub-cm node at station 4L. Note, all mediastinal, hilar, lobar and segmental stations were evaluated during the procedure and those not listedwere not biopsied due to lymph node diameter < 5mm or node not visualized. -Path: --Lymph node, station 7 (EBUS-guided FNA): Metastatic squamous cell carcinoma. --Lymph node, 4R (EBUS-guided FNA): Metastatic squamous cell carcinoma. --Lymph node, 4L (EBUS-guided FNA): Consistent with benign lymph node sampling. PET-CT 10/08/23: IMPRESSION 1. Masslike opacity in the right lower lobe appears less masslike and more fibrotic and atelectatic, compatible with interval radiation. Residual uptake may be related to inflammation or residual disease. This can be reassessed on follow-up. 2. Multiple new FDG-avid lymph nodes in the mediastinum, representing metastatic adenopathy. MRI Brain 10/14/23: Time from RT completion: ~ 10 months Interval History: Currently, he has the following symptoms: Symptom Description Intervention Pain He has pain associated with his right upper thorax, intermittent, 7/10. No pain medication Pulmonary No dyspnea at rest, mostly with moderate activity. Cough He notes severe cough, he has had hemoptysis x 3 weeks. He has coughing fits that can be verybothersome and frequent. Nutrition Issues / Weight Loss Mild weight loss, anorexia can be severe. Smoking Status Denies Other No Issues I have personally reviewed the imaging studies referenced above. Exam: No data found. Physical Exam Constitutional: Appearance: He is well-developed. Eyes: Pupils: Pupils are equal, round, and reactive to light. Pulmonary: Effort: Pulmonary effort is normal. No respiratory distress. Breath sounds: Normal breath sounds. No wheezing or rales. Chest: Chest wall: No tenderness. Skin: Findings: No erythema. Neurological: Mental Status: He is alert and oriented to person, place, and time. Cranial Nerves: No cranial nerve deficit. Psychiatric: Behavior: Behavior normal. Procedure: Performance Status: KPS 70-80% ECOG 1 Restricted in physically strenuous activity but ambulatory and able to carry out work of a light or sedentary nature, e.g., light house work, office work Summary/Recommendations: Impression: Disease Status: Mr. Xiong has a recurrent NSCLC s/p SBRT 10/20/22. I have discussed his case with Drs. Vincent and Portillo, and he appears to have a non- regional node (left IM) as well as concern for residual disease at the primary. We discussed that it is difficulty to be certain that the FDG avidity at the primary is malignant, but that biopsy would be challenging and the likelihood is high given the timeline between SBRT and the PET-CT. In the context of these findings the consensus of the groupwas that definitive therapy would not be feasible, with a high risk of severe morbidity and a very low likelihood of cure. As such, we reviewed palliative options in detail, noting the role of systemic therapy as the cornerstone of treatment, as well as palliative radiotherapy in the context of hishemoptysis. After discussion with the physician group, it was felt that palliative radiotherapy would be optimal as first line therapy given his active hemoptysis, and we reviewed this recommendation. We noted that the benefit of radiotherapy is primarily to control his hemoptysis, prevent further bronchial compression, and potentially to diminish his cough. We noted the risks and benefits in detail; of note, we discussed concerns regarding potential erosion of the bronchus by malignancy, and that radiotherapy could result in a fistula that may increase the risks of infection or other severe complications. However, given his significant hemoptysis it was felt that the benefits outweighed the risks in conversation with the physician team. After consideration he wished to proceed. Plan: Proceed with simulation today for palliative radiotherapy. 2. Mendel for his anorexia Thank you for allowing me to participate in the care of Marco Antonio Xiong. ZHANNA POPE MD New Orders: No orders of the defined types were placed in this encounter. [employer] [place] ([facility]CI) [facility] [employer] Commission on Cancer (ACS Jorge) Accredited Cancer Program [employer] (A[employer]) Accredited Radiation Oncology Program documented in this encounter Plan of Treatment Upcoming Encounters Date Type Department Care Team (Late st Contact Info) Description 06/20/2024 10:00 AM EST Office Visit Hematology/Oncology at [address] [phone] [address] [place] [address] 06/20/2024 10:30 AM EST Infusion Hematology Oncology at [address] [phone] 07/04/2024 11:00 AM EST Office Visit Hematology/Oncology at [address] [phone] [address] [place] [address] 07/04/2024 11:30 AM EST Infusion Hematology Oncology at [address] [phone] Scheduled Orders Name Type Priority Associated Diagnoses Orde r Schedule Simulation for Radiation Therapy Planning Radiation Oncology Routine Non-small cell cancer of right lung Expected: 10/20/2023, Expires: 04/20/2024 Scheduled Referrals Name Type Priority Associated Diagnoses Order Schedule Referral to Hematology and Oncology Outpatient Referral Routine Non-small cell cancer of right lung Ordered: 10/20/2023 documented as of this encounter Visit Diagnoses Diagnosis Non-small cell cancer of right lung documented in this encounter Care Teams Linux Unix Engineer Relationship Specialty Start Date End Date Kadi Lane PA [address] [place] [address] PCP - General Family Medicine 07/28/16 documented as of this encounter
--- OUTSIDE RECORDS SUMMARY | 2024-06-20 01:25 | XMS_ITS | Encounter Summary ---
Author Organization [facility] [place] [address] Care Team Providers Care Religious Studies Professor Name Role Phone Kadi Lane Primary Care Provider [phone] Encounter Details Date Type Department Care Team (Late st Contact Info) Description 2023 11:30 AM EDT Office Visit Hematology/Oncology at [address] [phone] Lia Barber APRN [address] [place] [address] [place] [address] Squamous cell carcinoma of right lung; High risk medication use Social History Tobacco Use Types Packs/Day Years Used Date Smoking Tobacco: Former Cigarettes 2 32 1 816 - 6937 Smokeless Tobacco: Never Alcohol Use Standard Drinks/Week [...] Sign Reading Time Taken Comments Blood Pressure 133/69 2023 11:13 AM EDT Pulse 80 2023 11:13 AM EDT Temperature 36.2 ??C (97.1 ??F) 2023 11:13 AM E DT Respiratory Rate - - Oxygen Saturation 100% 2023 11:13 AM EDT Inhaled Oxygen Concentration - - Weight 54.2 kg (119 lb 6.4 oz) 2023 11:13 AM EDT Height 168.9 cm (5' 6.5) 2023 11:13 AM ED T Body Mass Index 18.99 2023 11:13 AM EDT documented in this encounter Progress Notes * Elisabeth Lia NaranjoDEEDEE - 2023 11:30 AM EDT PATIENT ID: Marco Antonio Xiong is a 78 y.o. with squamous cell lung carcinoma who presents today for chemotherapy teaching and is accompanied by his Bhavna and his daughter Janell who is on the phone. The plan is for Carboplatin/Abraxane/Pembrolizumab for 4-6 cycles, followed by maintenance immu notherapy. The following information was reviewed with the patient and family. Antitumor Therapy Schedule: Pembrolizumab given on Day 1 of a 21 day cycle, infuses over 30 min. Carboplatin given on Day 1 of a 21 day cycle, infuses over 30 min Abraxane given on Days 1, 8 of a 21 day cycle, infuses over 30 min. Pre-medications: Anti-emetics prior to each dose of chemotherapy Laboratory Tests: Check blood counts, kidney and liver function, electrolytes prior to each dose of chemotherapy. Provider Visits: Provider-specific Possible Side Effects include, but are not limited to: Carboplatin: The most common side effects include decrease in blood counts (decrease in white bloodcells, red blood cells and platelets resulting in increased risk of infection, anemia and bleeding), nausea and vomiting, taste changes, decreased appetite, constipation (or less likely diarrhea), fatigue. Less common side effects include infusion reaction, mouth sores, kidney dysfunction, electrolyte abnormalities, ringing in the ears or hearing loss. Abraxane: The most common potential side effects include: Decrease in blood counts (decrease in white blood cells, red blood cells and platelets, resulting in increased risk of infection, anemia and bleeding), infusion reactions, nausea/vomiting, hair loss, peripheral neuropathy, muscle aches/bone pain, fatigue. Less common side effect is diarrhea. Pembrolizumab: The most common potential side effects are fatigue, decreased appetite, itching, joint pain, nausea, and anemia. It is important to be aware of the potential immune-mediated toxicities, including pneumonitis, colitis, hepatitis, rash, neuropathy, and endocrinopathies. Call immediately if any change in breathing, 3 or more loose or watery stools in 24 hrs (do not take imodium), rash, profound fatigue, headaches or vision changes. Prompt treatment may be required with high dose steroids. Medications: the following prescriptions should be picked up before starting treatment Compazine 10 mg oral every 6 hours as needed for nausea If denosumab, recommend calcium 600 mg twice daily and vitamin D 400 IU twice daily Plan: Marco Antonio Xiong was given written information regarding chemotherapy regimen, side effects and management strategies. Marco Antonio was given an opportunity to ask questions and verbalized understanding of the information and treatment plan. No barriers to learning were identified. They were counseled on how to call for any further questions or concerns. Chemotherapy is scheduled to begin on 11/29/23 Testing/Diagnostics Baseline blood work was reviewed and is adequate for treatment Chest CT every 2 cycles to assess response Ornamental Metal Erector Apprentice: Angelica Tipton Social work: Princess Rodriguez Advance Directives: A copy of the Advanced Directive was given to the patient. Will refer to socialwork to assist with completion Distress Screening: Baseline assessment performed today. Answers submitted by the patient for this visit: (Submitted on 2023) Distress: 0 Follow up: Return for day 1 of therapy on 11/29/23, day 8 on 12/06/23, then Cycle two should be scheduled for 12/20/23 documented in this encounter Plan of Treatment Upcoming Encounters Date Type Department Care Team (Late st Contact Info) Description 06/20/2024 10:00 AM EST Office Visit Hematology/Oncology at [address] [phone] Lia Barber APRN [address] [place] [address] [place] [address] 06/20/2024 10:30 AM EST Infusion Hematology Oncology at [address] [phone] 07/04/2024 11:00 AM EST Office Visit Hematology/Oncology at [address] [phone] Lia Barber APRN [address] [place] [address] [place] [address] 07/04/2024 11:30 AM EST Infusion Hematology Oncology at [address] [phone] Scheduled Orders Name Type Priority Associated Diagnoses Orde r Schedule TSH Lab STAT High risk medication use Once a week for 48 Occurrences starting 2023 until 11/23/2024 T4, free Lab STAT High risk medication use Once a week for 48 Occurrences starting 2023 until 11/23/2024 documented as of this encounter Visit Diagnoses Diagnosis Squamous cell carcinoma of right lung High risk medication use Encounter for long-term (current) use of other medications documented in this encounter Care Teams Religious Studies Professor Relationship Specialty Start Date End Date Kadi Lane PA [address] [place] [address] PCP - General Family Medicine 07/28/16 documented as of this encounter
--- OUTSIDE RECORDS SUMMARY | 2024-06-20 01:25 | XMS_ITS | Encounter Summary ---
Author Organization [facility] [place] [address] Care Team Providers Care Flask Handler Name Role Phone Kadi Lane Primary Care Provider [phone] Encounter Details Date Type Department Care Team (Latest Contact Info) Description 11/01/2023 Travel Social History Tobacco Use Types Packs/Day [...] 10:00 AM EST Office Visit Hematology/Oncology at [address] [phone] Lia Barber [address] HEMATOLOGY AND ONCOLOGY [place], [place] [address] 06/20/2024 10:30 AM EST Infusion Hematology Oncology at [address] [phone] 07/04/2024 11:00 AM EST Office Visit Hematology/Oncology at [address] [phone] HEMATOLOGY AND ONCOLOGY [place], [place] [address] 07/04/2024 11:30 AM EST Infusion Hematology Oncology at [address] [phone] documented as of this encounter Visit Diagnoses Not on filedocumented in this encounter Care Teams Flask Handler Relationship Specialty Start Date End Date Kadi Lane PA [address] [place] [address] PCP - General Family Medicine 07/28/16 documented as of this encounter
--- OUTSIDE RECORDS SUMMARY | 2024-06-20 01:25 | XMS_ITS | Encounter Summary ---
Author Organization [facility] [place] [address] Care Team Providers Care Press Worker Helper Name Role Phone Kadi Lane Primary Care Provider [phone] Encounter Details Date Type Department Care Team (Latest Contact Info) Description 11/10/2023 9:30 AM EDT TH Visit (TeleHealth) Radiation Oncology at [address] [phone] Rafael Pope MD [facility] [place] [address] Non-small cell cancer of right lung Social [...] as of this encounter Progress Notes * Rafael Pope MD - 11/10/2023 9:30 AM EDT FOLLOW UP VISIT NOTE Marco Antonio Xiong is a 77 y.o. male with a cT3N0, Stage IIB, NSCLC of the RLL s/p SBRT 50Gy/5Fx (completed 10/20/22) now being treated for biopsy proven mediastinal adenopathy. He completed radiotherapyto mediastinal nodes on 11/09/23, to a total of 30 Gy. He is seen today as a telephone visit, with his on the phone. Changes in medical condition Pain: He notes persistent ain associated with thorax, now on both left and right; resolves with Tylenol. Overall mild to moderate,and intermittent. Dyspnea/Cough: coughing has improved, with resolution of hemoptysis. Esophagitis: he notes increasing pain with swallowing, can be severe; did not tolerate lidocaine. He using Tylenol prn. Fatigue: moderate GI: -Constipation: he notes increasing constipation, using prune juice and ex-lax Nutrition Assessment: Weight :not assessed. Objective: Assessment: Increasing toxicity from radiotherapy, primarily esophagitis, fatigue. He is also experiencing constipation. He has note improvement in his cough and resolution of his hemoptysis. CTCAE TOXICITY GRADES (see below for henderson): Site Grade Skin 0 Cough 0 Dyspnea 0 Esophagitis 2 TREATMENT RESPONSE: No change Plan: Skin: Jeans cream QD Pain control: Tylenol prn. ADD MSIR, liquid, prn for pain. He will d/c lidocaine as it is not assisting him. Esophagitis: Tylenol, MSIR, PPI. Lidocaine not tolerated. Cough/Dyspnea: Mucinex to assist with expectoration Alimentation: followed by a r specialist, weight unknown, all by mouth. He was asked to increase caloricintake using shakes / supplements as much as possible. FU: I will see him as a TH visit next week. RAFAEL POPE MD [facility] Radiation Oncology CTCAE v4.03 scales for reference Skin 0 1 2 3 4 No change from baseline Faint erythema or dry desquamation Moderate to brisk erythema; patchy moistdesquamation mostly confined to skin folds & creases; moderate edema Moist desquamation in areas other than skin folds and creases; bleeding induced by minor trauma or abrasion Life threatening consequences; skin necrosis or ulceration of full thickness dermis; spontaneous bleeding; skin graft indicated Cough: 0 1 2 3 4 No change from baseline Mild sx; non-prescription intervention indicated Moderate sx, medical intervention indicated; limiting instrumental ADL Severe symptoms; limiting self care ADL NA Dyspnea: 0 1 2 3 4 No change from baseline SOB with moderate exertion SOB with minimal exertion; limiting instrumentalADLs SOB @ rest; limiting self care ADL Life threatening consequences; urgent intervention indicated Esophagitis: 0 1 2 3 4 No change from baseline Asymptomatic; clinical or diagnostic observations only; intervention not indicated Symptomatic; altered eating/swallowing; oral supplements indicated Severely altered swallowing/eating; tube feeding, TPN or hospitalization indicated Life threatening consequences; urgent intervention indicated documented in this encounter Plan of Treatment Upcoming Encounters Date Type Department Care Team (Late st Contact Info) Description 06/20/2024 10:00 AM EST Office Visit Hematology/Oncology at [address] [phone] HEMATOLOGY [place] [address] 06/20/2024 10:30 AM EST Infusion Hematology Oncology at [address] [phone] 07/04/2024 11:00 AM EST Office Visit Hematology/Oncology at [address] [phone] HEMATOLOGY AND [place] [address] 07/04/2024 11:30 AM EST Infusion Hematology Oncology at [address] [phone] documented as of this encounter Visit Diagnoses Diagnosis Non-small cell cancer of right lung documented in this encounter Care Teams Press Worker Helper Relationship Specialty Start Date End Date Kadi Lane PA [address] [place] [phone] PCP - General Family Medicine 07/28/16 documented as of this encounter
--- OUTSIDE RECORDS SUMMARY | 2024-06-20 01:25 | XMS_ITS | Encounter Summary ---
Author Organization [facility] Address [facility] [place] [address] Care Team Providers Care Customer Engagement Representative Name Role Phone Kadi Lane Primary Care Provider [phone] Encounter Details Date Type Department Care Team (Late st Contact Info) Description 10/20/2023 Orders Only Hematology/Oncology at [address] [phone] Zach Vincent MD [facility] [place] [address] Non-small cell cancer of right lung Social History Tobacco Use Types Packs/Day Years Used Date Smoking Tobacco: Former Cigarettes 2 32 1 766 - 1987 Smokeless Tobacco: Never Alcohol Use [...] 10:00 AM EST Office Visit Hematology/Oncology at [address] [phone] Lia Barber APRN [address] [place] [address] DR HEMATOLOGY [place] [address] 06/20/2024 10:30 AM EST Infusion Hematology Oncology at [address] [phone] 07/04/2024 11:00 AM EST Office Visit Hematology/Oncology at [address] [phone] Lia Barber APRN [address] [place] [address] DR HEMATOLOGY AND ONCOLOGY [place], [place] [address] 07/04/2024 11:30 AM EST Infusion Hematology Oncology at [address] [phone] Scheduled Orders Name Type Priority Associated Diagnoses Order Schedule Magnesium Lab STAT Non-small cell cancer of right lung Once a week for 48 Occurrences starting 10/20/2023 until 10/19/2024 Comprehensive metabolic panel (non-fasting) Lab STAT Non-small cell cancer of right lung Once a week for 48 Occurrences starting 10/20/2023 until 10/19/2024 CBC (with Diff) Lab STAT Non-small cell cancer of right lung Once a week for 48 Occurrences starting 10/20/2023 until 10/19/2024 Specimen to Pathology Additional Testing Pathology/Cyto logy STAT Non-small cell cancer of right lung Ordered: 10/20/2023 documented as of this encounter Visit Diagnoses Diagnosis Non-small cell cancer of right lung documented in this encounter Care Teams Customer Engagement Representative Relationship Specialty Start Date End Date Kadi Lane PA [address] [place] [address] PCP - General Family Medicine 07/28/16 documented as of this encounter
--- OUTSIDE RECORDS SUMMARY | 2024-06-20 01:25 | XMS_ITS | Encounter Summary ---
Author Organization [facility] [place] [address] Care Team Providers Care Material Attendant Name Role Phone Kadi Lane Primary Care Provider [phone] Encounter Details Date Type Department Care Team (Late st Contact Info) Description 10/19/2023 Telephone Radiation Oncology at [address] [phone] Paige Christian, RN Social History Tobacco Use Types Packs/Day Years Used Date Smoking Tobacco: Former Cigarettes 2 32 1 486 - 1987 Smokeless Tobacco: Never Alcohol Use [...] encounter Miscellaneous Notes * Telephone Encounter - Paige Christian RN - 10/19/2023 10:09 AM EDT Patient's Bhavna reports that he has no appetite and hasn't really eaten in a couple weeks just because he is not hungry. Now he is just drinking coffee. Not sleeping well. He is coughing more which is productive about 3 times /day of phlegm with hemoptysis. His energy and breathing in the morning are good but decline by the end of the day. She is asking if they can have a face to face with Dr. Pope tomorrow for evaluation. I let her know that I will update him and return call. She is agreeable to this plan. documented in this encounter Plan of Treatment Upcoming Encounters Date Type Department Care Team (Late st Contact Info) Description 06/20/2024 10:00 AM EST Office Visit Hematology/Oncology at [address] [phone] HEMATOLOGY AND ONCOLOGY [place], [place] [phone] 06/20/2024 10:30 AM EST Infusion Hematology Oncology at [address] [phone] 07/04/2024 11:00 AM EST Office Visit Hematology/Oncology at [address] [phone] HEMATOLOGY AND ONCOLOGY [place], [place] [id number] 07/04/2024 11:30 AM EST Infusion Hematology Oncology at [address] [phone] documented as of this encounter Visit Diagnoses Not on filedocumented in this encounter Care Teams Material Attendant Relationship Specialty Start Date End Date Kadi Lane PA [address] [place] [address] PCP - General Family Medicine 07/28/16 documented as of this encounter
--- OUTSIDE RECORDS SUMMARY | 2024-06-20 01:25 | XMS_ITS | Encounter Summary ---
Author Organization [facility] [place] [address] Care Team Providers Care Choke Setter Name Role Phone Kadi Lane Primary Care Provider [phone] Encounter Details Date Type Department Care Team (Late st Contact Info) Description 11/03/2023 2:30 PM EDT Office Visit Radiation Oncology at [address] [phone] Rafael Pope MD [facility] [place] [address] Non-small cell cancer of right lung Social [...] Sign Reading Time Taken Comments Blood Pressure 124/68 11/03/2023 2:20 PM EDT Pulse 83 11/03/2023 2:20 PM EDT Temperature 36.6 ??C (97.9 ??F) 11/03/2023 2 :20 PM EDT Respiratory Rate 18 11/03/2023 2:20 PM EDT Oxygen Saturation 100% 11/03/2023 2:2 0 PM EDT Inhaled Oxygen Concentration - - Weight 56.6 kg (124 lb 12.8 oz) 024 2:20 PM EDT with shoes Height - - Body Mass Index 19.84 09/01/2023 11:06 AM EDT documented in this encounter Progress Notes * Rafael Pope MD - 11/03/2023 2:30 PM EDT ON TREATMENT VISIT NOTE Marco Antonio Xiong is a 77 y.o. male with a cT3N0, Stage IIB, NSCLC of the RLL s/p SBRT 50Gy/5Fx (completed 10/20/22) now being treated for biopsy proven mediastinal adenopathy. Current treatment dose: 18 Gy in 6 fractions. Anticipated total dose: 30 Gy in 10 fractions. Concomitant Therapy: N Evaluation of Port Verification Films: PORT films have been reviewed, please see ARIA for details. Changes in medical condition Pain: Pain associated with right upper thorax, intermittent, can escalate to level 5/10. Uses tylenol PRN. Dyspnea/Cough: Hemoptysis has resolved. Coughing fits can be very bothersome and frequent, stable No dyspnea at rest, mostly occurs with moderate activity. Esophagitis: None Fatigue: moderate Nutrition Assessment: Weight : 57.2kg initial Change: 57.2 => 57.1 Objective: Vitals: 11/03/23 1420 BP: 124/68 Patient Position: Sitting Pulse: 83 Resp: 18 Temp: 36.6 ??C (97.9 ??F) SpO2: 100% Weight: 56.6 kg (124 lb 12.8 oz) SKIN: no skin erythema Assessment: Minimal toxicity. Hemoptysis has resolved. CTCAE TOXICITY GRADES (see below for henderson): Site Grade Skin 0 Cough 0 Dyspnea 0 Esophagitis 0 TREATMENT RESPONSE: No change Plan: Continue RT per prescription Skin: Jeans cream QD Pain control: Tylenol prn Esophagitis: no intervention needed at this time Cough/Dyspnea: ADD Mucinex to assist with expectoration Alimentation: followed by terminal superintendent, weight stable, all by mouth FU: I will see him as a TH visit next week. RAFAEL POPE MD Radiation Oncology Resident PGY-2 [facility] Radiation Oncology CTCAE v4.03 scales for [...] AM EST Office Visit Hematology/Oncology at [address] [phone] [address] HEMATOLOGY AND ONCOLOGY [place], [place] [phone] 06/20/2024 10:30 AM EST Infusion Hematology Oncology at [address] [phone] 07/04/2024 11:00 AM EST Office Visit Hematology/Oncology at [address] [phone] HEMATOLOGY AND ONCOLOGY [place], [place] [address] 07/04/2024 11:30 AM EST Infusion Hematology Oncology at [address] [phone] documented as of this encounter Visit Diagnoses Diagnosis Non-small cell cancer of right lung documented in this encounter Care Teams Choke Setter Relationship Specialty Start Date End Date Kadi Lane PA [address] [place] [address] PCP - General Family Medicine 07/28/16 documented as of this encounter
--- OUTSIDE RECORDS SUMMARY | 2024-06-20 01:25 | XMS_ITS | Encounter Summary ---
[place] [address] Care Team Providers Care Office Machine Servicer Name Role Phone Kadi Lane Primary Care Provider [phone] Reason for Visit * Reason Comments Medication Refill Encounter Details Date Type Department Care Team (Late st Contact Info) Description 11/08/2023 Refill Cardiology at [address] [phone] Isaac Ledbetter MD [facility] [place] [address] Medication Refill Social History Tobacco Use Types Packs/Day Years Used Date Smoking Tobacco: Former Cigarettes 2 32 1 736 - 1987 Smokeless Tobacco: Never Alcohol Use [...] AM EST Office Visit Hematology/Oncology at [address] [phone] Lia Barber APRN [address] [place] [address] DR HEMATOLOGY [place] [address] 06/20/2024 10:30 AM EST Infusion Hematology Oncology at [address] [phone] 07/04/2024 11:00 AM EST Office Visit Hematology/Oncology at [address] [phone] Lia Barber APRN [address] [place] [address] DR HEMATOLOGY AND ONCOLOGY [place], [place] [phone] 07/04/2024 11:30 AM EST Infusion Hematology Oncology at [address] [phone] documented as of this encounter Visit Diagnoses Diagnosis Chest pain, unspecified type documented in this encounter Care Teams Office Machine Servicer Relationship Specialty Start Date End Date Kadi Lane [place] [address] PCP - General Family Medicine 07/28/16 documented as of this encounter
--- OUTSIDE RECORDS SUMMARY | 2024-06-20 01:25 | XMS_ITS | Encounter Summary ---
[facility] Organization [facility] [address] Care Team Providers Care Wind Field Manager Name Role Phone Kadi Lane Primary Care Provider [phone] Encounter Details Date Type Department Care Team (Late st Contact Info) Description 10/20/2023 Notes Only Radiation Oncology at [address] [phone] Princess Rodriguez, WOOD CASKET MAKER OFFICE OF CARE MANAGEMENT Social History Tobacco Use Types Packs/Day Years Used Date Smoking Tobacco: Former Cigarettes 2 32 1 256 - 9571 Smokeless Tobacco: Never Alcohol Use Standard Drinks/Week [...] of this encounter Progress Notes * Princess Rodriguez, WOOD CASKET MAKER - 10/20/2023 3:19 PM EDT Follow up with Marco Antonio and his prior to his sim today. He is expecting 10 RT treatments. WOOD CASKET MAKER metthem September 2022. They continue with support from their children. He is managing day to day at home and does what he feels up to. They do not expect any issues with transportation though they live about2 hours from this facility. They do not have any concerns re finances or insurance. Reminded them of the [place] [employer] fund for people who live in their area but they do not feel the need for that assistance. Marco Antonio and his did not identify any specific needs. Offered support. Reminded them of WOOD CASKET MAKER availability and will follow as indicated. Brief assessment Supportive Counseling documented in this encounter Plan of Treatment Upcoming Encounters Date Type Department Care Team (Late st Contact Info) Description 06/20/2024 10:00 AM EST Office Visit Hematology/Oncology at [address] [phone] HEMATOLOGY [place] [address] 06/20/2024 10:30 AM EST Infusion Hematology Oncology at [address] [phone] 07/04/2024 11:00 AM EST Office Visit Hematology/Oncology at [address] [phone] [address] HEMATOLOGY [place] [address] 07/04/2024 11:30 AM EST Infusion Hematology Oncology at [address] [phone] documented as of this encounter Visit Diagnoses Not on filedocumented in this encounter Care Teams Wind Field Manager Relationship Specialty Start Date End Date Kadi Lane PA [facility] [place] [address] PCP - General Family Medicine 07/28/16 documented as of this encounter
--- OUTSIDE RECORDS SUMMARY | 2024-06-20 01:25 | XMS_ITS | Encounter Summary ---
Author Organization [facility] [place] [address] Care Team Providers Care Hard Candy Spinner Name Role Phone Kadi Lane Primary Care Provider [phone] Reason for Visit * Reason Onset Date Comments Medication Refill 10/09/2023 Encounter Details Date Type Department Care Team (Late st Contact Info) Description 10/09/2023 Refill [place] [phone] Rafael Pope MD [facility] [place] [address] Social History Tobacco Use Types Packs/Day Years [...] encounter Miscellaneous Notes * Telephone Encounter - Randee Kirby RN - 10/13/2023 7:55 AM EDT Received request from [facility] for refill of Hycodan. Chart reviewed and refill seems appropriate. Last filled on 09/23/2023, 120ml, to be taken 5ml qid prn. Pended to Dr Pope for approval. documented in this encounter Plan of Treatment Upcoming Encounters Date Type Department Care Team (Late st Contact Info) Description 06/20/2024 10:00 AM EST Office Visit Hematology/Oncology at [address] [phone] Lia Barber, [address] HEMATOLOGY AND ONCOLOGY [place], [place] [address] 06/20/2024 10:30 AM EST Infusion Hematology Oncology at [address] [phone] 07/04/2024 11:00 AM EST Office Visit Hematology/Oncology at [address] [phone] HEMATOLOGY AND ONCOLOGY [place], [place] [phone] 07/04/2024 11:30 AM EST Infusion Hematology Oncology at [address] [phone] documented as of this encounter Visit Diagnoses Not on filedocumented in this encounter Care Teams Hard Candy Spinner Relationship Specialty Start Date End Date Kadi Lane PA [address] [place] [address] PCP - General Family Medicine 07/28/16 documented as of this encounter
--- OUTSIDE RECORDS SUMMARY | 2024-06-20 01:25 | XMS_ITS | Encounter Summary ---
[place] [address] Care Team Providers Care Manager Six Sigma Name Role Phone Kadi Lane Primary Care Provider [phone] Reason for Visit * Reason Comments Medication Refill Encounter Details Date Type Department Care Team (Late st Contact Info) Description 11/13/2023 Refill Cardiology at [address] [phone] Isaac Ledbetter MD [facility] [place] [address] Medication Refill Social History Tobacco Use Types [...] encounter Miscellaneous Notes * Telephone Encounter - Cheryl Britton RN - 11/15/2023 9:09 AM EDT Pt uses local pharmacy - not mail order. Will re-pend metoprolol refill to per request of pt's for [facility] in [place], [place]. documented in this encounter Plan of Treatment Upcoming Encounters Date Type Department Care Team (Late st Contact Info) Description 06/20/2024 10:00 AM EST Office Visit Hematology/Oncology at [address] [phone] Lia Barber, [address] HEMATOLOGY AND ONCOLOGY [place], [place] [address] 06/20/2024 10:30 AM EST Infusion Hematology Oncology at [address] [phone] 07/04/2024 11:00 AM EST Office Visit Hematology/Oncology at [address] [phone] Lia Barber, [address] HEMATOLOGY AND ONCOLOGY [place], [place] [address] 07/04/2024 11:30 AM EST Infusion Hematology Oncology at [address] [phone] documented as of this encounter Visit Diagnoses Diagnosis Chest pain, unspecified type documented in this encounter Care Teams Manager Six Sigma Relationship Specialty Start Date End Date Kadi Lane PA [address] [place] [address] PCP - General Family Medicine 07/28/16 documented as of this encounter
--- OUTSIDE RECORDS SUMMARY | 2024-06-20 01:25 | XMS_ITS | Encounter Summary ---
Author Organization [facility] [place] [address] Care Team Providers Care Oil Operator Name Role Phone Kadi Lane Primary Care Provider Encounter Details Date Type Department Care Team (Latest Contact Info) Description 10/29/2023 Travel Social History Tobacco Use Types Packs/Day [...] 10:00 AM EST Office Visit Hematology/Oncology at [address] [phone] Lia Barber [address] HEMATOLOGY AND ONCOLOGY [place], [place] [address] 06/20/2024 10:30 AM EST Infusion Hematology Oncology at [address] [phone] 07/04/2024 11:00 AM EST Office Visit Hematology/Oncology at [address] [phone] HEMATOLOGY AND ONCOLOGY [place], [place] [address] 07/04/2024 11:30 AM EST Infusion Hematology Oncology at [address] [phone] documented as of this encounter Visit Diagnoses Not on filedocumented in this encounter Care Teams Oil Operator Relationship Specialty Start Date End Date Kadi Lane PA [address] [place] [address] PCP - General Family Medicine 07/28/16 documented as of this encounter
--- OUTSIDE RECORDS SUMMARY | 2024-06-20 01:25 | XMS_ITS | Encounter Summary ---
Author Organization [facility] [place] [address] Care Team Providers Care Air Compressor Mechanic Name Role Phone Kadi Lane Primary Care Provider [phone] Reason for Visit * Reason Onset Date Comments Cough 09/23/2023 Encounter Details Date Type Department Care Team (Late st Contact Info) Description 09/23/2023 Telephone Radiation Oncology at [address] [phone] Vy Cagle, RN Cough Social History Tobacco Use Types Packs/Day Years Used Date Smoking Tobacco: Former Cigarettes 2 32 1 876 - 1987 Smokeless Tobacco: Never Alcohol Use [...] encounter Miscellaneous Notes * Telephone Encounter - Vy Cagle RN - 09/23/2023 9:04 AM EDT RN call to Marco Antonio Xiong's Bhavna to follow up about cough. She tells me that this is notnew, but he is having a bothersome cough that is worse in the morning. She says his cough is productive in the mornings and he brings up a small amount of blood. I asked if the blood was bright red or pink and frothy and she tells me half and half. He is not having any pain/sore throat. I asked if he had been using the benzonatate that was prescribed by Dr. Pope on 08/25/23. She was not awarethat this prescription had been sent in. I advised her to call their pharmacy to see if it was available to be picked up and to take it as directed to see if it would improve his cough. She tells me she will go to the pharmacy today to see if she can pick it up. I advised her to call back if there were any issues getting the medication. She was thankful for my call and agrees to call back if theyhave any questions or concerns. Dr Pope updated via this note. Edit: After speaking with pharmacy and Bhavna it was discovered that they did turkey picker the benzonatate at the time it was prescribed. Bhavna says it did not help and they do not have anymore. Updated Dr. Pope via in basket and requested his recommendations on something else he can try for cough management. ----- Message ----- From: Chari Adorno Sent: 09/23/2023 8:29 AM EDT To: [facility] Hem Onc Nurse Marco Antonio's called in asking for some sort of cough medicine due to a cough that he has mostly in the morning. She mentioned that he does bring up a little but if blood(not much) when he is coughing. This is an on going cough not new. Best call back number [phone] documented in this encounter Plan of Treatment Upcoming Encounters Date Type Department Care Team (Late st Contact Info) Description 06/20/2024 10:00 AM EST Office Visit Hematology/Oncology at [address] [phone] Lia Barber CLIENT SERVICES SPECIALIST [address] [place] [address] DR [place]Y [place] [address] 06/20/2024 10:30 AM EST Infusion Hematology Oncology at [address] [phone] 07/04/2024 11:00 AM EST Office Visit Hematology/Oncology at [address] [phone] Lia Barber APRN [address] [place] [address] DR HEMATOLOGY AND ONCOLOGY [place], [place] [address] 07/04/2024 11:30 AM EST Infusion Hematology Oncology at [address] [phone] documented as of this encounter Visit Diagnoses Not on filedocumented in this encounter Care Teams Air Compressor Mechanic Relationship Specialty Start Date End Date Kadi Lane PA [facility] [place] [address] PCP - General Family Medicine 07/28/16 documented as of this encounter
--- OUTSIDE RECORDS SUMMARY | 2024-06-20 01:25 | XMS_ITS | Encounter Summary ---
Author Organization [facility] [place] [address] Care Team Providers Care Straw Hat Plunger Operator Name Role Phone Kadi Lane Primary Care Provider [phone] Reason for Visit * Reason Comments IV Access IV start for SIM Encounter Details Date Type Department Care Team (Late st Contact Info) Description 10/20/2023 3:15 PM EDT Infusion Hematology Oncology at [address] [phone] Non-small cell cancer of right lung Social [...] Progress Notes * Aminata Celaya RN - 10/20/2023 3:15 PM EDT Patient arrived in infusion. #20g PIV placed without difficulty in right arm. Positive blood return noted. Stat-Lock appliance applied. [facility] documented in this encounter Plan of Treatment Upcoming Encounters Date Type Department Care Team (Late st Contact Info) Description 06/20/2024 10:00 AM EST Office Visit Hematology/Oncology at [address] [phone] Lia Barber APRN [address] [place] [address] DR [place] [address] 06/20/2024 10:30 AM EST Infusion Hematology Oncology at [address] [phone] 07/04/2024 11:00 AM EST Office Visit Hematology/Oncology at [address] [phone] Lia Barber, [address] HEMATOLOGY AND ONCOLOGY [place], [place] [address] 07/04/2024 11:30 AM EST Infusion Hematology Oncology at [address] [phone] documented as of this encounter Visit Diagnoses Diagnosis Non-small cell cancer of right lung documented in this encounter Care Teams Straw Hat Plunger Operator Relationship Specialty Start Date End Date Kadi Lane PA [facility] [place] [address] PCP - General Family Medicine 07/28/16 documented as of this encounter
--- OUTSIDE RECORDS SUMMARY | 2024-06-20 01:25 | XMS_ITS | Encounter Summary ---
Author Organization [facility] [place] [address] Care Team Providers Care Die Maker Name Role Phone Kadi Lane Primary Care Provider [phone] Encounter Details Date Type Department Care Team (Latest Contact Info) Description 10/20/2023 Travel Social History Tobacco Use Types Packs/Day [...] AM EST Office Visit Hematology/Oncology at [address] [phone] Lia Barber [address] HEMATOLOGY AND ONCOLOGY [place], [place] [address] 06/20/2024 10:30 AM EST Infusion Hematology Oncology at [address] [phone] 07/04/2024 11:00 AM EST Office Visit Hematology/Oncology at [address] [phone] [address] HEMATOLOGY AND ONCOLOGY [place], [place] [address] 07/04/2024 11:30 AM EST Infusion Hematology Oncology at [address] [phone] documented as of this encounter Visit Diagnoses Not on filedocumented in this encounter Care Teams Die Maker Relationship Specialty Start Date End Date Kadi Lane PA [address] [place] [address] PCP - General Family Medicine 07/28/16 documented as of this encounter
--- OUTSIDE RECORDS SUMMARY | 2024-06-20 01:25 | XMS_ITS | Encounter Summary ---
[place] [address] Care Team Providers Care Shift Leader Name Role Phone Kadi Lane Primary Care Provider Reason for Referral * Diagnostic Test (Routine) - Closed Specialty Diagnoses / Procedures Referred By Contmarlys bowers Referred To Contact Radiology Diagnoses Non-small cell cancer of right lung Procedures NM Lacey PET CT Skull Base to Mid-thigh Rafael Pope MD [facility] [place] [address] [place] [address] Referral ID Status Reason Start Date Expiration Date V isits Requested Visits Authorized [id number] Closed Specialty Service Requested 09/21/2023 03/23/2025 1 1 Encounter Details Date Type Department Care Team (Late st Contact Info) Description 09/21/2023 Orders [place] [address] Rafael Pope MD [facility] [place] [address] Non-small cell cancer of right lung Social [...] Progress Notes * Rafael Pope MD - 09/21/2023 4:42 PM EDT I talked to Mr and Mrs Xiong regarding the results of the bronchoscopy: Lymph node, station 7 (EBUS-guided FNA): Metastatic squamous cell carcinoma. Lymph node, 4R (EBUS-guided FNA): Metastatic squamous cell carcinoma Lymph node, 4L (EBUS-guided FNA): Negative for Malignancy Pleural fluid, right (thoracentesis): Atypical. Less than optimal due to cellular degeneration. We discussed that he has recurrent disease, and at this time we need to further define the extent of disease. We will obtain a PETCT and MRI of the brain EDOU[place]. He was in agreement with the plan. documented in this encounter Plan of Treatment Upcoming Encounters Date Type Department Care Team (Late st Contact Info) Description 06/20/2024 10:00 AM EST Office Visit Hematology/Oncology at [address] [phone] [address]ia Barber [address] HEMATOLOGY [place], [place] [address] 06/20/2024 10:30 AM EST Infusion Hematology Oncology at [address] [phone] 07/04/2024 11:00 AM EST Office Visit Hematology/Oncology at [address] [phone] HEMATOLOGY [place], [place] [address] 07/04/2024 11:30 AM EST Infusion Hematology Oncology at [address] [phone] documented as of this encounter Results * NM Lacey PET CT Skull Base to Mid-thigh (10/08/2023 3:44 PM EDT) WORKSTATION ID [id number] RAD Anatomical Region Laterality Modality Positron Emissio n Tomography (PET) Impressions 10/14/2023 10:31 AM EDT 1. ??Masslike opacity in the right lower lobe appears less masslike and more fibrotic and atelectatic, compatible with interval radiation. Residual uptake may be related to inflammation or residual disease. This can be reassessed on follow-up. 2. ??Multiple new FDG-avid lymph nodes in the mediastinum, representing metastatic adenopathy. Thank you for letting us participate in the care of this patient. ??If you are a health care provider and have any questions regarding this report, please contact the number below. ??For patients who have questions please contact the health primary care coordinator that requested your imaging first. ? Narrative 10/14/2023 10:31 AM EDT EXAMINATION: [place] [facility] PET CT SKULL BASE TO MID-THIGH CLINICAL HISTORY: s/p SBRT to Right lung malignany, now wtih biopsy proven recurrence in mediastinum, assess extent of disease C34.91, Malignant neoplasm of unspecified part of right bronchus or lung TECHNIQUE: Following IV injection of 69-bqpgaq-0-deoxyglucose (FDG) a standard uptake of approximately 60 minutes, a noncontrast CT scan followed by a PET scan were acquired from the base of the skull to mid thighs. The noncontrast CT was used for anatomic localization and photon attenuation correction of the PET scan. Blood glucose level: 118 (mg/dL) FDG dose: 13.0 mCi COMPARISON: FDG PET CT from 09/17/2022. FINDINGS: HEAD AND NECK: BRAIN AND EXTRA-AXIAL SPACES (WHERE INCLUDED): No abnormal uptake. Partially imaged encephalomalacia involving the right parietotemporal lobe, chronic appearing ORBITS: No abnormal uptake. PARANASAL SINUSES: No abnormal uptake. A small mucous retention cyst in the right ethmoid air cell. Postsurgical changes from prior ethmoidectomy and maxillary antrectomy. MASTOIDS: No abnormal uptake. AERODIGESTIVE TRACT: No abnormal uptake. SALIVARY GLANDS: No abnormal uptake. THYROID: No abnormal uptake. VASCULATURE: No abnormal uptake. Vascular calcifications of bilateral carotid. LYMPH NODES: No abnormal uptake. THORAX: LUNGS: Masslike opacity in the right lung base with SUVmax 7.6, decreased in conspicuity since prior. Adjacent atelectasis. ??Right lung volume loss is unchanged. PLEURA: No abnormal uptake. Moderate right pleural effusion associated with pleural calcifications, similar compared to the prior. Left pleural calcifications also similar. AIRWAYS: No abnormal uptake. MEDIASTINUM: No abnormal uptake. A aakx-zj-ignywhtu hiatal hernia. HEART AND VASCULATURE: No abnormal uptake. Multivessel coronary artery calcifications. Mild vascular calcifications of the aortic arch and great vessels. LYMPH NODES: Multiple new FDG-avid lymph nodes in the thorax involving the upper and lower paratracheal station, subcarinal station, prevascular station, bilateral francy. For example, a prevascular lymph node measures approximately 1.4 cm short axis, with SUVmax 28.4 (image 80). A subcarinal lymph node measures 2.2 cm short axis with SUVmax 26.4 (image 95). BREASTS/CHEST WALL: No abnormal uptake. ABDOMEN AND PELVIS: LIVER: No abnormal uptake. BILIARY SYSTEM: No abnormal uptake. PANCREAS: No abnormal uptake. SPLEEN: No abnormal uptake. ADRENALS: No abnormal uptake. KIDNEYS AND URETERS: No abnormal uptake. URINARY BLADDER: No abnormal uptake. REPRODUCTIVE: No abnormal uptake. GI: No abnormal uptake. Mild colonic diverticulosis. OMENTUM, MESENTERY, PERITONEUM, RETROPERITONEUM: No abnormal uptake. VASCULATURE: No abnormal uptake. Moderate vascular calcifications in the aorta and branch vessels. LYMPH NODES: No abnormal uptake. MUSCULOSKELETAL: Mildly heterogeneous coarse cortical thickening of the left ilium and ischium are similar, may be related to Paget disease. Procedure Note Reji Miller MD - 10/14/2023 EXAMINATION: [facility] PET CT SKULL BASE TO MID-THIGH CLINICAL HISTORY: s/p SBRT to Right lung malignany, now wtih biopsyproven recurrence in mediastinum, assess extent of disease C34.91, Malignant neoplasm of unspecified part of right bronchus or lung TECHNIQUE: Following IV injection of 18-imjcwt-9-deoxyglucose (FDG) astandard uptake of approximately 60 minutes, a noncontrast CT scan followed by aPET scan were acquired from the base of the skull to mid thighs. The noncontrast CTwas used for anatomic localization and photon attenuation correction of thePET scan. Blood glucose level: 118 (mg/dL) FDG dose: 13.0 mCi COMPARISON: FDG PET CT from 09/17/2022. FINDINGS: HEAD AND NECK: BRAIN AND EXTRA-AXIAL SPACES (WHERE INCLUDED): No abnormal uptake.Partially imaged encephalomalacia involving the right parietotemporal lobe,chronic appearing ORBITS: No abnormal uptake. PARANASAL SINUSES: No abnormal uptake. A small mucous retention cyst inthe right ethmoid air cell. Postsurgical changes from prior ethmoidectomyand maxillary antrectomy. MASTOIDS: No abnormal uptake. AERODIGESTIVE TRACT: No abnormal uptake. SALIVARY GLANDS: No abnormal uptake. THYROID: No abnormal uptake. VASCULATURE: No abnormal uptake. Vascular calcifications of bilateralcarotid. LYMPH NODES: No abnormal uptake. THORAX: LUNGS: Masslike opacity in the right lung base with SUVmax 7.6, decreasedin conspicuity since prior. Adjacent atelectasis. Right lung volume lossis unchanged. PLEURA: No abnormal uptake. Moderate right pleural effusion associatedwith pleural calcifications, similar compared to the prior. Left pleural calcifications also similar. AIRWAYS: No abnormal uptake. MEDIASTINUM: No abnormal uptake. A qekp-bp-obzkxqjm hiatal hernia. HEART AND VASCULATURE: No abnormal uptake. Multivessel coronary artery calcifications. Mild vascular calcifications of the aortic arch andgreat vessels. LYMPH NODES: Multiple new FDG-avid lymph nodes in the thorax involving theupper and lower paratracheal station, subcarinal station, prevascular station, bilateral francy. For example, a prevascular lymph node measuresapproximately 1.4 cm short axis, with SUVmax 28.4 (image 80). A subcarinal lymph nodemeasures 2.2 cm short axis with SUVmax 26.4 (image 95). BREASTS/CHEST WALL: No abnormal uptake. ABDOMEN AND PELVIS: LIVER: No abnormal uptake. BILIARY SYSTEM: No abnormal uptake. PANCREAS: No abnormal uptake. SPLEEN: No abnormal uptake. ADRENALS: No abnormal uptake. KIDNEYS AND URETERS: No abnormal uptake. URINARY BLADDER: No abnormal uptake. REPRODUCTIVE: No abnormal uptake. GI: No abnormal uptake. Mild colonic diverticulosis. OMENTUM, MESENTERY, PERITONEUM, RETROPERITONEUM: No abnormal uptake. VASCULATURE: No abnormal uptake. Moderate vascular calcifications in theaorta and branch vessels. LYMPH NODES: No abnormal uptake. MUSCULOSKELETAL: Mildly heterogeneous coarse cortical thickening of the left ilium andischium are similar, may be related to Paget disease. IMPRESSION 1. Masslike opacity in the right lower lobe appears less masslike andmore fibrotic and atelectatic, compatible with interval radiation. Residualuptake may be related to inflammation or residual disease. This can be reassessedon follow-up. 2. Multiple new FDG-avid lymph nodes in the mediastinum, representing metastatic adenopathy. Thank you for letting us participate in the care of this patient. If youare a health care provider and have any questions regarding this report,please contact the number below. For patients who have questions please contactthe health primary care coordinator that requested your imaging first. 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
--- OUTSIDE RECORDS SUMMARY | 2024-06-20 01:25 | XMS_ITS | Encounter Summary ---
Author Organization [facility] [place] [address] Care Team Providers Care Tightener Name Role Phone Kadi Lane Primary Care Provider [phone] Encounter Details Date Type Department Care Team (Latest Contact Info) Description 10/27/2023 Travel Social History Tobacco Use Types Packs/Day [...] 10:00 AM EST Office Visit Hematology/Oncology at [address] [phone] Lia Barber [address] HEMATOLOGY AND ONCOLOGY [place], [place] [address] 06/20/2024 10:30 AM EST Infusion Hematology Oncology at [address] [phone] 07/04/2024 11:00 AM EST Office Visit Hematology/Oncology at [address] [phone] HEMATOLOGY AND ONCOLOGY [place], [place] [address] 07/04/2024 11:30 AM EST Infusion Hematology Oncology at [address] [phone] documented as of this encounter Visit Diagnoses Not on filedocumented in this encounter Care Teams Tightener Relationship Specialty Start Date End Date Kadi Lane PA [address] [place] [address] PCP - General Family Medicine 07/28/16 documented as of this encounter
--- OUTSIDE RECORDS SUMMARY | 2024-06-20 01:25 | XMS_ITS | Encounter Summary ---
[place] [address] Care Team Providers Care Insurance Defense Attorney Name Role Phone Kadi Lane Primary Care Provider [phone] Reason for Referral * Diagnostic Test (Routine) - Closed Specialty Diagnoses / Procedures Referred By Contac t Referred To Contact Radiology Diagnoses Non-small cell cancer of right lung Procedures NM [place] PET CT Skull Base to Mid-thigh Rafael Pope MD [facility] [place] [address] [place] [address] Referral ID Status Reason Start Date Expiration Date V isits Requested Visits Authorized [id number] Closed Specialty Service Requested 09/21/2023 03/23/2025 1 1 Reason for Visit * Diagnostic Test (Routine) - Closed Specialty Diagnoses / Procedures Referred By Contac t Referred To Contact Radiology Diagnoses Non-small cell cancer of right lung Procedures NM [place] PET CT Skull Base to Mid-thigh Rafael Pope MD [facility] [place] [address] [facility] [place] [address] Referral ID Status Reason Start Date Expiration Date V isits Requested Visits Authorized [id number] Closed Specialty Service Requested 09/21/2023 03/23/2025 1 1 Encounter Details Date Type Department Care Team (Latest Contact Info) Description 10/08/2023 3:00 PM EDT - 10/08/2023 11:59 PM EDT Hospital Encounter [place] [address] Rafael Pope MD [facility] [place] [address] Non-small cell cancer of right lung Discharge Disposition: Home Social History Tobacco Use Types Packs/Day Years Used Date Smoking Tobacco: Former Cigarettes 2 32 1 586 - 1987 Smokeless Tobacco: Never Alcohol Use [...] Sig Dispensed Refills Start Date End Date omeprazole (PriLOSEC) [address] capsule Take [...] (E.C.) Take 81 mg by mouth daily. HYDROcodone-homatropine (HYCODAN) 5-1.5 mg/5 mL Syrup Take 5 mLs by mouth 4 times daily as needed. 120 mL 09/23/2023 10/09/2023 metoprolol succinate XL (Toprol-XL) 25 mg ER 24 hr tabletIndications:Chest pain, unspecified type Take 0.5 tablets by mouth daily. 45 tablet 3 08/04/2023 11/15/2023 atorvastatin (Lipitor) 40 mg tabletIndications:Chest pain, unspecified type Take 1 tablet by mouth daily. 30 tablet 1 08/04/2023 10/21/2023 clarithromycin (Biaxin) 500 mg tablet Take 1 tablet by mouth 2 times daily. 07/12/2023 11/03/2023 documented as of this encounter Plan of Treatment Upcoming Encounters Date Type Department Care Team (Late st Contact Info) Description 06/20/2024 10:00 AM EST Office Visit Hematology/Oncology at [address] [phone] HEMATOLOGY AND ONCOLOGY [place], [place] [phone] 06/20/2024 10:30 AM EST Infusion Hematology Oncology at [address] [phone] 07/04/2024 11:00 AM EST Office Visit Hematology/Oncology at [address] [phone] [address] HEMATOLOGY AND ONCOLOGY [place], [place] [phone] 07/04/2024 11:30 AM EST Infusion Hematology Oncology at [address] [phone] documented as of this encounter Procedures Procedure Name Priority Date/Time Associated Diagnosis Comments [place] [facility] PET CT SKULL BASE TO MID-THIGH Routine 10/08/2023 3:44 PM EDT Non-small cell cancer of right lung documented in this encounter Results * NM L[facility] PET CT Skull Base to Mid-thigh (10/08/2023 3:44 PM EDT) WORKSTATION ID [id number] RAD Anatomical Region Laterality Modality Positron Emissio [...] who have questions please contact the health manager critical care unit that requested your imaging first. ? Narrative 10/14/2023 10:31 AM EDT EXAMINATION: [facility] PET CT SKULL BASE TO MID-THIGH CLINICAL HISTORY: s/p SBRT to Right lung malignany, now wtih biopsy proven recurrence in mediastinum, assess extent of disease C34.91, Malignant neoplasm of unspecified part of right bronchus or lung TECHNIQUE: Following IV injection of 13-tabojf-7-deoxyglucose (FDG) a standard uptake of approximately 60 [...] abnormal uptake. MEDIASTINUM: No abnormal uptake. A xxrr-rh-qtdujndh hiatal hernia. HEART AND VASCULATURE: No abnormal [...] Note Reji Miller MD - 10/14/2023 EXAMINATION: [facility] PET CT SKULL BASE TO MID-THIGH CLINICAL HISTORY: s/p SBRT to Right lung malignany, now wtih biopsyproven recurrence in mediastinum, assess extent of disease C34.91, Malignant neoplasm of unspecified part of right bronchus or lung TECHNIQUE: Following IV injection of 46-hwozvo-8-deoxyglucose (FDG) astandard uptake of approximately 60 minutes, [...] abnormal uptake. MEDIASTINUM: No abnormal uptake. A dxea-sg-nnkzogez hiatal hernia. HEART AND VASCULATURE: No abnormal [...] patients who have questions please contactthe health manager critical care unit that requested your imaging first. Electronically signed by: Reji Miller [facility] ([phone]),at 10/14/2023 10:31 AM Rafael Pope MD IMG PET ORDERABLES documented in this encounter Visit Diagnoses Diagnosis Non-small cell cancer of right lung documented in this encounter Care Teams Insurance Defense Attorney Relationship Specialty Start Date End Date Kadi Lane PA [address] [place] [address] PCP - General Family Medicine 07/28/16 documented as of this encounter
--- OUTSIDE RECORDS SUMMARY | 2024-06-20 01:25 | XMS_ITS | Encounter Summary ---
Author Organization [facility] [place] [address] Care Team Providers Care Loft Worker Head Name Role Phone Kadi Lane Primary Care Provider [phone] Encounter Details Date Type Department Care Team (Latest Contact Info) Description 2023 Travel Social History Tobacco Use Types Packs/Day [...] place to sleep or slept in a penitentiary (including now)? No 08/14/2022 DH IPV Inpatient [...] 10:00 AM EST Office Visit Hematology/Oncology at [address] [phone] Lia Barber [address] HEMATOLOGY AND ONCOLOGY [place], [place] [address] 06/20/2024 10:30 AM EST Infusion Hematology Oncology at [address] [phone] 07/04/2024 11:00 AM EST Office Visit Hematology/Oncology at [address] [phone] [address] HEMATOLOGY AND ONCOLOGY [place], [place] [address] 07/04/2024 11:30 AM EST Infusion Hematology Oncology at [address] [phone] documented as of this encounter Visit Diagnoses Not on filedocumented in this encounter Care Teams Loft Worker Head Relationship Specialty Start Date End Date Kadi Lane PA [address] [place] [address] PCP - General Family Medicine 07/28/16 documented as of this encounter
--- OUTSIDE RECORDS SUMMARY | 2024-06-20 01:25 | XMS_ITS | Encounter Summary ---
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 Zach Vincent MD [facility] DR HEMAT[place]Y [place] [address] St Hem Onc Office [address] [place] [phone] Referral ID Status Reason Start Date Expiration Date Visits Re quested Visits Authorized [id number] Closed 11/08/2023 11/07/2024 99 99 Encounter Details Date Type Department Care Team (Late st Contact Info) Description 11/29/2023 12:30 PM EDT Infusion Hematology Oncology at [address] [phone] High risk medication use; Non-small [...] Sign Reading Time Taken Comments Blood Pressure 136/68 11/29/2023 11:21 AM EDT Pulse 73 11/29/2023 11:21 AM EDT Temperature 36.2 ??C (97.1 ??F) 11/29/2023 1 1:21 AM EDT Respiratory Rate 18 11/29/2023 11:2 1 AM EDT Oxygen Saturation 100% 11/29/2023 11: 21 AM EDT Inhaled Oxygen Concentration - - Weight 55.7 kg (122 lb 12.8 oz) 024 11:21 AM EDT Height 168.9 cm (5' 6.5) 11/29/2023 11 :21 AM EDT Body Mass Index 19.53 11/29/2023 11:21 AM EDT documented in this encounter Progress Notes * Aminata Celaya, RN - 11/29/2023 12:30 PM EDT INFUSION THERAPY ADMINISTRATION NOTES DIAGNOSIS: NSCLC CYCLE #: Cycle 1, Day 1 - Pembrolizumab, 3 Hr Paclitaxel, Carboplatin REASON FOR VISIT: To begin a combination Immunotherapy/Chemotherapy SUBJECTIVE: Marco Antonio (Jose A-LAKISHA) offers no complaints. He is accompanied by his . OBJECTIVE: VSS. Weight stable. LAB DATA: WBC - 6.74, H/H - 12.0/37.2, Plt Ct - 246, ANC - 5.09, Lytes wnl, BUN/Cr - 15/0.8, MG++ -1.6, TSH/Free T4 - 0.67/1.06 IV ACCESS: PIV Pre administration: Chemotherapy orders independently verified for drug name, route, and dosage per patient's height, weight and BSA by Aminata Celaya, RN and Staff Pharmacist(s). REACTIONS (DESCRIPTION, TIME, INTERVENTION AND EFFECTIVENESS) none ASSESSMENT: Marco Antonio was awake, alert and tolerated treatment well. PIV discontinued prior to dismissal. Chemotherapy teaching reinforced. During clinic hours (8am-5pm Wednesday-Wednesday): pt. can call [phone] with questions or concerns. After clinic hours (5pm-8am Wednesday-Wednesday and weekends) pt can call [phone] and ask for the cad engineer/oncologist concrete laborer. Marco Antonio Xiong verbalized understanding of potential [...] AM EST Office Visit Hematology/Oncology at [address] [phone] Lia Barber [address] [place] [address] 06/20/2024 10:30 AM EST Infusion Hematology Oncology at [address] [phone] 07/04/2024 11:00 AM EST Office Visit Hematology/Oncology at [address] [phone] [address]ia Barber[address] [place] [address] 07/04/2024 11:30 AM EST Infusion Hematology Oncology at [address] [phone] documented as of this encounter Visit Diagnoses [...] over 2 Minutes, ONCE, 1 dose, On Wed11/29/23 at 1200, Alternative administration of IV push over 2 minutes is a recommendation from the title department manager. Administer prior to chemotherapy., Routine Given 11/29/2023 12:21 PM EDT 130 mg CARBOplatin (Paraplatin) 326 mg in dextrose 5% 282.6 mL infusion 326 mg (Target AUC = 4), Intravenous, ONCE, 1 dose, On Wed11/29/23 at 1300, Administer over 30 Minutes, Warning Vesicant/Irritant Medication New Bag 11/29/2023 5:26 PM EDT 326 mg 565.2 mL/hr dexAMETHasone (Decadron) tablet 10 mg 10 mg, Oral, ONCE, 1 dose, On Wed11/29/23 at 1200, Administer 30 minutes prior to PACLitaxeL., Routine Given 11/29/2023 12:20 PM EDT 10 mg diphenhydrAMINE (Benadryl) (50 mg/mL) injection 25 mg 25 mg, Intravenous, ONCE, 1 dose, On Wed11/29/23 at 1200, Administer 30 minutes prior to PACLitaxeL., Routine Given 11/29/2023 12:20 PM EDT 25 mg famotidine (Pepcid) (10 mg/mL) injection 20 mg 20 mg, Intravenous, ONCE, 1 dose, On Wed11/29/23 at 1200, Administer 30 minutes prior to PACLitaxeL. Given 11/29/2023 12:20 PM EDT 20 mg PACLitaxeL (Taxol) 239 mg in sodium chloride 0.9% Non-PVC 539.83 mL infusion 239 mg (rounded from 238.5 mg = 150 mg/m2/dose ? 1.59 m2 Treatment Plan BSA from Recorded weight), Intravenous, ONCE, 1 dose, On Wed11/29/23 at 1300, Administer over 3 Hours, Warning Vesicant/Irritant Medication [...] Infusion? Initial: 3 Step Titration New Bag 11/29/2023 1:31 PM EDT 239 mg 179.9 mL/hr palonosetron (Aloxi) (0.05 mg/mL) injection 0.25 mg 0.25 mg, Intravenous, ONCE, 1 dose, On Wed11/29/23 at 1200, Administer over 30 seconds., Routine Given 11/29/2023 12:21 PM EDT 0.25 mg pembrolizumab (Keytruda) 200 mg in sodium chloride 0.9% 108 mL infusion 200 mg, Intravenous, ONCE, 1 dose, On Wed11/29/23 at 1300, Administer over 30 Minutes, Flush Line with NS after each dose, This agent is restricted to outpatient use. Is this drug being given as an outpatient? Yes New Bag 11/29/2023 12:49 PM EDT 200 mg 216 mL/hr documented in this encounter Care Teams Garden Implement Mechanic Relationship Specialty Start Date End Date Kadi Lane PA [address] [place] [address] PCP - General Family Medicine 07/28/16 documented as of this encounter
--- OUTSIDE RECORDS SUMMARY | 2024-06-20 01:25 | XMS_ITS | Encounter Summary ---
Author Organization [facility] [place] [address] Care Team Providers Care Planer Operator / Grader Name Role Phone Kadi Lane Primary Care Provider [phone] Encounter Details Date Type Department Care Team (Late st Contact Info) Description 11/09/2023 Notes Only [place] [address] Rafael Pope MD [facility] RADIATION [place] [address] Social History Tobacco Use Types Packs/Day Years [...] Progress Notes * Rafael Pope MD - 11/09/2023 11:59 PM EDT Images from the original note were not included. Radiation Oncology Treatment Summary PATIENT NAME: Marco Antonio Xiong DATE OF : 1945 DIAGNOSIS / TREATMENT OVERVIEW Marco Antonio Xiong is a 77 y.o. male with a cT3N0, Stage IIB, NSCLC of the RLL s/p SBRT 50Gy/5Fx (completed 10/20/22) being treated for biopsy proven mediastinal adenopathy. TREATMENT DETAILS Treatment Intent Palliative Site Treated Mediastinal nodes Technique VMAT Adaptive Plan Required No Concurrent Chemo No Clinical Trial No TECHNICAL DETAILS Total Dose: 30 Gy / 10 fractions at 3 Gy per fraction PLAN IMAGES CLINICAL COURSE Marco Antonio Xiong had the following toxicities at the end of treatment (CTCAE v4.03): Site Grade Skin 0 Cough 0 Dyspnea 0 Esophagitis 0 FOLLOW UP Per NCC protocol documented in this encounter Plan of Treatment Upcoming Encounters Date Type Department Care Team (Late st Contact Info) Description 06/20/2024 10:00 AM EST Office Visit Hematology/Oncology at [address] [phone] HEMATOLOGY AND ONCOLOGY [place], [place] [address] 06/20/2024 10:30 AM EST Infusion Hematology Oncology at [address] [phone] 07/04/2024 11:00 AM EST Office Visit Hematology/Oncology at [address] [phone] [address] HEMATOLOGY AND ONCOLOGY [place], [place] [phone] 07/04/2024 11:30 AM EST Infusion Hematology Oncology at [address] [phone] documented as of this encounter Visit Diagnoses Not on filedocumented in this encounter Care Teams Planer Operator / Grader Relationship Specialty Start Date End Date Kadi Lane PA [address] [place] [address] PCP - General Family Medicine 07/28/16 documented as of this encounter
--- OUTSIDE RECORDS SUMMARY | 2024-06-20 01:25 | XMS_ITS | Encounter Summary ---
[place] [address] Care Team Providers Care Bacteriology Professor Name Role Phone Kadi Lane Primary Care Provider [phone] Encounter Details Date Type Department Care Team (Late st Contact Info) Description 09/24/2023 Telephone Hematology [place] [address] Jana Vera Social History Tobacco Use Types Packs/Day Years [...] encounter Miscellaneous Notes * Telephone Encounter - Jana Vera - 09/24/2023 3:43 PM EDT Procedure Prior Authorization Procedure/Cpt: 38121 Pet scan, 90843 MRI Brain C-/C+ Rationale: C34.91 Health Plan: [employer] Authorizing Vendor: As above [phone] Service Order/Case ID: Call Ref #: [id number] Effective Date: Status: PA not required Rendering Facility: [facility] documented in this encounter Plan of Treatment Upcoming Encounters Date Type Department Care Team (Late st Contact Info) Description 06/20/2024 10:00 AM EST Office Visit Hematology/Oncology at [address] [phone] [address]ia Barber [address] HEMATOLOGY AND ONCOLOGY [place], [place] [address] 06/20/2024 10:30 AM EST Infusion Hematology Oncology at [address] [phone] 07/04/2024 11:00 AM EST Office Visit Hematology/Oncology at [address] [phone] HEMATOLOGY AND ONCOLOGY [place], [place] [phone] 07/04/2024 11:30 AM EST Infusion Hematology Oncology at [address] [phone] documented as of this encounter Visit Diagnoses Not on filedocumented in this encounter Care Teams Bacteriology Professor Relationship Specialty Start Date End Date Kadi Lane PA [address] [place] [address] PCP - General Family Medicine 07/28/16 documented as of this encounter
--- OUTSIDE RECORDS SUMMARY | 2024-06-20 01:25 | XMS_ITS | Encounter Summary ---
Author Organization [facility] [place] [address] Care Team Providers Care Weighmaster Name Role Phone Kadi Lane Primary Care Provider [phone] Reason for Visit * Consultation (Routine) - Closed Specialty Diagnoses / Procedures Referred By Jorge Luis bowers Referred To Contact Radiation Oncology Diagnoses Non-small cell cancer of right lung Procedures Simulation for Radiation Therapy Planning Rafael Pope MD [facility] [place] [address] [facility] Rad Onc Office [address] [place] [id number] Referral ID Status Reason Start Date Expiration Date V isits Requested Visits Authorized [id number] Closed Consult, Test & Treat 10/20/2023 10/19/2024 1 11 Encounter Details Date Type Department Care Team (Latest Contact Info) Description 10/20/2023 3:00 PM EDT Ancillary Appointment Radiation Oncology at [address] [phone] Rafael Pope MD [facility] [place] [address] Non-small cell cancer of right [...] as of this encounter Progress Notes * Paige Christian RN - 10/20/2023 3:00 PM EDT Section of Radiation Oncology Contrast Information Safety Questions 1. Has the patient ever had an x-ray study before which involved injection of a contrast agent or x-ray dye? yes If yes, did the patient have any reaction to the injection? no If yes, please describe the reaction: 2. Is the patient allergic to any foods, medicines, or other substances? no No Known Allergies 3. Has the patient received any contrast within the past 48 hours? no 4. Does the patient have any procedures scheduled in the next 48 hours? no 5. Does the patient have a history of renal/kidney problems or kidney surgery? yes 6. Does the patient have diabetes? no 7. Does the patient have high blood pressure? yes 8. Is the patient currently being treated for gout? no 9. If the answer to any of the questions #5-8 was yes, has the patient had a creatinine level and eGFR drawn within the past 45 days? yes Lab Results Component Value Date CREATININE 0.77 (L) 08/29/2022 If no, when will it be drawn? Creatinine 0.8 , eGFR 90 drawn 08/11/2023. Dr. Pope aware and advised ok to proceed with IV contrast. A creatinine less than or equal to 1.6 and a eGFR of 45 or greater OK; to proceed with IV contrast. If the creatinine is greater than 1.6 and the eGFR is less than 45, consult with the ordering provider. If an eGFR is less than 30, IV contrast should not be administered and another contrast agent may be ordered by the provider (Visipaque). 10. Is the patient currently taking any of the following medications? (Actoplus Met, Avandamet, Glucovance, Janumet, Jendadueto, Kombiglyze, Metaglip, PrandiMet, Glugophage, Glumetza, Riomet, Metformin) [x} No If yes, when was last dose taken? 9. If patient is on any of the medications in question #10, consult with the ordering provider if the patient needs to stop the medication and if they will require further lab studies. * Paige Christian RN - 10/20/2023 3:[address] Contrast Simulation Nursing Note: Marco Antonio Xiong [id number] 08/11/1988 IV ACCESS: PIV GAUGE: Please see infusion note for details. BLOOD RETURN: yes CT simulation of: chest MD present for contrast injection: Dr. Rafael Pope Contrast material: Omnipaque 300 mgI/ml Volume of Contrast Injected: 100 ml's Volume of Contrast wasted: 0 ml's Procedure done in Radiation Oncology CT Simulator Room __x: No Reaction Any S/Sx of Infiltration/Extravasation: IV discontinued: Discontinued by Sim team staff __: Reaction: Specify : Comments: * Rafael Pope MD - 10/20/2023 3:00 PM EDT Images from the original note were not included. [facility] Medicine Radiation Oncology Radiation Oncology Simulation Note Patient Identity: Patient name: Marco Antonio Xiong Date of : 1945 Diagnosis: Non small cell lung cancer Site: Mediastinum Consent was obtained and signed by both the patient and physician. CT simulation was performed withthe following parameters: Simulation for radiation therapy planning was performed in the radiation oncology department. The technical details of the simulation are available in the radiation oncology EMR ([employer]) upon request. IV Contrast Yes 4D Yes Notes: Start date TBD Procedure: I was personally present/supervising for the critical portions of the procedure. RAFAEL POPE MD [facility] [place] ([facility]) [facility] [employer] Commission on Cancer (ACS Jorge) Accredited Cancer Program [employer] (ACR) Accredited Radiation Oncology Program documented in this encounter Plan of Treatment Upcoming Encounters Date Type Department Care Team (Late st Contact Info) Description 06/20/2024 10:00 AM EST Office Visit Hematology/Oncology at [address] [phone] HEMATOLOGY AND ONCOLOGY [place], [place] [phone] 06/20/2024 10:30 AM EST Infusion Hematology Oncology at [address] [phone] 07/04/2024 11:00 AM EST Office Visit Hematology/Oncology at [address] [phone] [address] HEMATOLOGY AND ONCOLOGY [place], [place] [phone] 07/04/2024 11:30 AM EST Infusion Hematology Oncology at [address] [phone] documented as of this encounter Visit Diagnoses Diagnosis Non-small cell cancer of right lung documented in this encounter Care Teams Weighmaster Relationship Specialty Start Date End Date Kadi Lane PA [facility] [place] [address] PCP - General Family Medicine 07/28/16 documented as of this encounter
--- OUTSIDE RECORDS SUMMARY | 2024-06-20 01:25 | XMS_ITS | Encounter Summary ---
Author Organization [facility] [place] [address] Care Team Providers Care Waste Disposal Plant Operator Name Role Phone Kadi Lane Primary Care Provider [phone] Encounter Details Date Type Department Care Team (Late st Contact Info) Description 11/08/2023 3:00 PM EDT Office Visit Hematology/Oncology at [address] [phone] Zach Vincent MD [facility] DR HEMATOLOGY [place] [address] Lia Barber APRN [address] [place] [address] DR HEMATOLOGY AND ONCOLOGY [place], [place] [phone] Dysphagia, unspecified type; Secondary and malignant neoplasm of lymph nodes [...] Sign Reading Time Taken Comments Blood Pressure 137/61 11/08/2023 2:44 PM EDT Pulse 86 11/08/2023 2:44 PM EDT Temperature 36.4 ??C (97.5 ??F) 11/08/2023 2:44 PM ED T Respiratory Rate 18 11/08/2023 2:44 PM EDT Oxygen Saturation 96% 11/08/2023 2:44 PM EDT Inhaled Oxygen Concentration - - Weight 56.9 kg (125 lb 6.4 oz) 11/08/2023 2:44 P M EDT Height 168.9 cm (5' 6.5) 11/08/2023 2:44 PM EDT Body Mass Index 19.94 11/08/2023 2:44 PM EDT documented in this encounter Patient Instructions * Patient Instructions* Zach Vincent MD - 11/08/2023 3:00 PM EDT The plan is for Carboplatin/nab-Paclitaxel/Pembrolizumab given for 4 cycles (each cycle is three weeks with treatment given on Days 1,8), followed by maintenance pembrolizumab. We will arrange for a CT scan to assess if the treatment is helping every 2-3 cycles (6-9 weeks). Antitumor Therapy Schedule: Pembrolizumab given on Day 1 of a 21 day cycle, infuses over 30 min Carboplatin given on Day 1 of a 21 day cycle, infuses over 30 min Nab-Paclitaxel given on Day 1 AND 8 of a 21 day cycle, infuses over 30 min Pre-medication to prevent nausea Plan for 3-4 hrs in infusion on Day 1 and 2 hours on Day 8 Laboratory Tests: Prior to each treatment we will check blood counts, kidney and liver function, thyroid function andelectrolytes Provider Visits: Day 1 of each cycle. In some cases, will also sometimes schedule a clinic visit on Day 14 of the first cycle to check labs and assess symptoms. Possible Side Effects include, but are not limited to: Carboplatin and Nab-Paclitaxel: The most common side effects include decrease in blood counts (decrease in white blood cells, red blood cells and platelets resulting in increased risk of infection, anemia and bleeding), nausea and vomiting, taste changes, decreased appetite, constipation (or less likely diarrhea), fatigue. Less common side effects include infusion reaction, rash, mouth sores, kidney dysfunction, electrolyte abnormalities, ringing in the ears or hearing impairment. Pembrolizumab: The most common potential side effects are fatigue, decreased appetite, itching, nausea, and anemia. It is important to be aware of the potential immune-mediated toxicities, including pneumonitis, colitis, hepatitis, rash, neuropathy, and endocrinopathies. Call immediately if any change in breathing, 3 or more loose or watery stools in 24 hrs (do not take immodium), rash, profound fatigue, headaches or vision changes. Prompt treatment is required with high dose steroids. Medications: the following prescriptions should be picked up before starting treatment Prochlorperazine (aka Compazine) 10 mg oral every 6 hours as needed for nausea Optional: Ondansetron (aka Zofran) 8 mg oral every 8 hours as needed for nausea (do not take for 3 days after chemotherapy) General recommendations: Call if temperature of 100.4 or greater or signs of symptoms of an infection. It is very important to practice good hand hygiene and wash your hands frequently. Please call if your experience bleeding, new/increasing SOB, or chest pain chest pain. Call if nausea/vomiting persists despite trying your antinausea medcations. Try to stay hydrated. Water is the best option Smaller/ more frequent meals and blander foods may be better tolerated. Call if you develop mouth sores so we can discuss mouth rinses, dietary recommendations and strategies for pain management. Please tell us if you experience numbness/tingling/changes in sensation in hands or feet You should use a barrier method of protection if sexually active on days of chemotherapy and for 48hours afterwards Try to stay active if at all possible. This helps reduce or limit fatigue. It is ok to take naps and rest if you need to. documented in this encounter Progress Notes * Zach Vincent MD - 11/08/2023 3:00 PM EDT Images from the original note were not included. Thoracic Oncology [facility] [place] [address] [phone] Marco Antonio Xiong is being seen for the evaluation of lung cancer. Assessment & Plan: Marco Antonio Xiong is a 77 y.o. male patient with a past medical [...] help palliate his cough and respiratory symptoms. Today we reviewed the imaging and discussed that this is unfortunately advanced disease and therebyconsidered incurable. Treatment would be with palliative intent. His performance status is adequateto consider chemoimmunotherapy and we discussed the potential side effects and toxicities. I would recommend carboplatin nab-paclitaxel and pembrolizumab with some upfront dose reductions (AUC 4 and omit D15 abraxane) followed by maintenance immunotherapy We discussed the potential side effects of systemic therapy including fatigue, hair loss, nausea/vomiting, bowel changes, taste changes, mouth sores, neuropathy, myelosuppression with an increase risk of serious infections, need for blood transfusions, organ injury, rashes allergic reactions and immune mediated toxicities among others. Explained that they may stop treatment at any time and they do not have to pursue any treatment if they do not wish to. The patient expressed that they would like to proceed with treatment. Plan: - Complete palliative radiation tomorrow - Lidocaine for his dysphagia from the radiation - Will give him two weeks to recover and to celebrate his birthday and then would plan to start systemic therapy the week of 11/29/23/ Zach Vincent MD, MS 11/08/2023 Thoracic Oncology [facility] CC: ADRIANO Sheriff Time Attestation: I certify spending at least 40 minutes in providing care to this patient on the day of the visit asreflected by the following activities: - review of his medical record in the chart - discussion of medical decision making - documenting the outcome of today's visit HPI/Interval History/Subjective: He is accompanied by his . His daughter who is a nurse in [place] joins us by conference call. He is generally doing okay. Generally quite active. Having a bit more fatigued particular the radiation and also some worsening discomfort with swallowing. Some mild pain in the shoulder. Able to walkon flat ground without any limitations from his breathing though does get winded with 1 flight of stairs. Social History/Support Network: Home situation: . Lives 2 hours away. 3 chuildren. 5 grandsons and 2 great grandauhters Employment: Retired. [employer]. Now likes to be outdoorrs fishing. [place]. Tobacco use: Quit in 1986. 2 ppd at the time. [id number] history Alcohol use: uit then as well [...] therapeutically aspirated. The bronchoscope was removed. The [employer] robotic systemwas used for pre-procedure planning, including 3D rendering with image post-processing on an independent workstation. The [employer] robotic system was then used for [...] nodes in the mediastinum, representing metastatic adenopathy. No data to display Patient Active Problem List Diagnosis Date Noted [...] Exam: Wt Readings from Last 3 Encounters: 11/08/23 56.9 kg (125 lb 6.4 oz) 11/03/23 56.6 kg (124 lb 12.8 oz) 10/27/23 57.2 kg (126 lb) Temp Readings from Last 3 Encounters: 11/08/23 36.4 ??C (97.5 ??F) (Temporal) 11/03/23 36.6 ??C (97.9 ??F) 10/27/23 37 ??C (98.6 ??F) (Temporal) BP Readings from Last 3 Encounters: 11/08/23 137/61 11/03/23 124/68 10/27/23 134/64 Pulse Readings from Last 3 Encounters: 11/08/23 86 11/03/23 83 10/27/23 69 Body surface area is 1.63 meters squared. Wt Readings from Last 3 Encounters: 11/08/23 56.9 kg (125 lb 6.4 oz) 11/03/23 56.6 kg (124 lb 12.8 oz) 10/27/23 57.2 kg (126 lb) KPS Score ECOG Grade Definition 90-100 0 [...] previous visit (from the past 72 hour(s)). Latest Reference Range & Units Most Recent WBC 4.0 - 9.5 x10(3)/mcL 7.4 07/07/22 10:53 RBC 4.58 - 5.54 x10(6)/mcL 4.14 (L) 07/07/22 10:53 Hemoglobin 13.7 - 16.5 g/dL 13.2 (L) 07/07/22 10:53 Hematocrit 40.5 - 48.5 % 39.5 (L) 07/07/22 10:53 MCV 82.9 - 93.1 fL 95.4 (H) 07/07/22 10:53 MCH 27.5 - 32.1 pg 31.9 07/07/22 10:53 MCHC 32.0 - 35.7 g/dL 33.4 07/07/22 10:53 RDWSD 36.0 - 45.0 fL 43.8 07/07/22 10:53 RDWCV 11.4 - 13.8 % 12.6 07/07/22 10:53 Platelets 145 - 357 x10(3)/mcL 288 07/07/22 10:53 MPV 7.6 - 12.9 fL 9.0 07/07/22 10:53 nRBC % Auto % 0.0 07/07/22 10:53 nRBC Abs Auto 0.000 - 0.000 x10(3)/mcL 0.000 07/07/22 10:53 Neutr Abs (ANC) 1.70 - 6.10 x10(3)/mcL 5.06 07/07/22 10:53 Neutrophils % % 68.8 07/07/22 10:53 Immature Gran % % 0.40 07/07/22 10:53 Lymphocytes % % 16.0 07/07/22 10:53 Monocytes % % 10.7 07/07/22 10:53 Eosinophils % % 3.4 07/07/22 10:53 Basophils % % 0.7 07/07/22 10:53 Afia Gran Abs 0.00 - 0.04 x10(3)/mcL 0.03 07/07/22 10:53 Lymphocytes Abs 0.9 - 3.2 x10(3)/mcL 1.2 07/07/22 10:53 Monocyte Abs 0.3 - 0.9 x10(3)/mcL 0.8 07/07/22 10:53 Eosinophils Abs 0.0 - 0.4 x10(3)/mcL 0.2 07/07/22 10:53 Basophils Abs 0.0 - 0.1 x10(3)/mcL 0.0 07/07/22 10:53 Sodium 135 - 145 mmol/L 141 07/07/22 10:53 Potassium 3.5 - 5.0 mmol/L 4.7 07/07/22 10:53 Chloride 98 - 107 mmol/L 103 07/07/22 10:53 CO2 22 - 31 mmol/L 27 07/07/22 10:53 Anion Gap 5 - 15 mmol/L 11 07/07/22 10:53 BUN 10 - 20 mg/dL 18 07/07/22 10:53 Creatinine 0.80 - 1.50 mg/dL 0.80 07/07/22 10:53 Estimated GFR >=60 mL/min/1.73 m?? 91 07/07/22 10:53 Calcium 8.5 - 10.5 mg/dL 9.4 07/07/22 10:53 Magnesium 0.69 - 1.07 mmol/L 0.82 02/26/22 20:51 Phosphorus 2.5 - 4.5 mg/dL 2.7 02/26/22 20:51 Glucose Lvl 65 - 199 mg/dL 93 07/07/22 10:53 POC Glucose 65 - 199 mg/dL 75 07/02/22 09:18 Hemoglobin A1C 4.3 - 5.6 % 5.5 07/07/22 10:53 Est Avg Gluc mg/dL See note 07/07/22 10:53 Total Protein 6.1 - 8.0 g/dL 7.1 02/23/22 07:36 Albumin 3.2 - 5.2 g/dL 4.0 02/23/22 07:36 Total Bilirubin 0.2 - 1.3 mg/dL 0.6 02/23/22 07:36 Alk Phos 40 - 130 unit/L 221 (H) 02/23/22 07:36 AST 0 - 39 unit/L 20 02/23/22 07:36 ALT 0 - 55 unit/L 17 02/23/22 07:36 Chol, Total mg/dL 160 07/07/22 10:53 HDL mg/dL 34 07/07/22 10:53 Chol/HDL Ratio ratio 4.7 07/07/22 10:53 Triglycerides mg/dL 182 07/07/22 10:53 LDL Cholesterol mg/dL 90 07/07/22 10:53 Lipid Interpretation See Note 07/07/22 10:53 Prealbumin 20 - 40 mg/dL 11 (L) 02/26/22 04:44 Spec Type BF Pleural, Right 07/21/22 11:55 Color BF Ripley 07/21/22 11:55 Appearance BF Cloudy 07/21/22 11:[address] <=499 Not Measured 07/21/22 11:55 Polymorph % Not Measured 07/21/22 11:55 Polymorph BF ABS Not Measured 07/21/22 11:55 Mononuc % Not Measured 07/21/22 11:55 Mononuc ABS Not Measured 07/21/22 11:55 Glucose, BF mg/dL 12 02/23/22 11:14 Gluc, BF Type Pleural, Right 02/23/22 11:14 LDH BF unit/L >2,500 07/21/22 11:55 LDH, BF Type Pleural, Right 07/21/22 11:55 pH Body Fluid 7.09 02/23/22 11:14 pH BF Type Pleural, Right 02/23/22 11:14 Protein, BF g/dL 4.3 07/21/22 11:55 Protein BF Type Pleural, Right 07/21/22 11:55 Trig BF mg/dL 58 07/21/22 11:55 Trig, BF Type Pleural, Right 07/21/22 11:55 Review of Imaging Data: I personally reviewed the reports and images in the studies as detailed in the oncology overview above. Review of Pathology Data: I personally reviewed the reports of the pathology as detailed in the oncology overview above. documented in this encounter Plan of Treatment Upcoming Encounters Date Type Department Care Team (Late st Contact Info) Description 06/20/2024 10:00 AM EST Office Visit Hematology/Oncology at [address] [phone] HEMATOLOGY [place] [address] 06/20/2024 10:30 AM EST Infusion Hematology Oncology at [address] [phone] 07/04/2024 11:00 AM EST Office Visit Hematology/Oncology at [address] [phone] [address] HEMATOLOGY [place] [address] 07/04/2024 11:30 AM EST Infusion Hematology Oncology at [address] [phone] documented as of this encounter Visit Diagnoses Diagnosis Dysphagia, unspecified type 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
--- OUTSIDE RECORDS SUMMARY | 2024-06-20 01:25 | XMS_ITS | Encounter Summary ---
Author Organization [facility] [place] [address] Care Team Providers Care Stallion Manager Name Role Phone Kadi Lane Primary Care Provider [phone] Encounter Details Date Type Department Care Team (Latest Contact Info) Description 11/05/2023 Travel Social History Tobacco Use Types Packs/Day [...] AM EST Office Visit Hematology/Oncology at [address] [phone] Lia Barber [address] HEMATOLOGY AND ONCOLOGY [place], [place] [address] 06/20/2024 10:30 AM EST Infusion Hematology Oncology at [address] [phone] 07/04/2024 11:00 AM EST Office Visit Hematology/Oncology at [address] [phone] HEMATOLOGY AND ONCOLOGY [place], [place] [address] 07/04/2024 11:30 AM EST Infusion Hematology Oncology at [address] [phone] documented as of this encounter Visit Diagnoses Not on filedocumented in this encounter Care Teams Stallion Manager Relationship Specialty Start Date End Date Kadi Lane PA [address] [place] [address] PCP - General Family Medicine 07/28/16 documented as of this encounter
--- OUTSIDE RECORDS SUMMARY | 2024-06-20 01:25 | XMS_ITS | Encounter Summary ---
Author Organization [facility] [place] [address] Care Team Providers Care Clerical Assistant Name Role Phone Kadi Lane Primary Care Provider [phone] Reason for Visit * Consultation (Routine) - Closed Specialty Diagnoses / Procedures Referred By Contac t Referred To Contact Gastroenterology Diagnoses Cough, persistent w/in 2 WEEKS -cough. T Chest wIth dilated esophagus and retained contents. Eval for treatment and managment.- motiltiy team Jeannie Washburn MD [facility] [place] [address] [facility] [address] [place] [address] Referral ID Status Reason Start Date Expiration Date V isits Requested Visits Authorized [id number] Closed Consult, Test & Treat 09/01/2023 08/31/2024 1 1 Encounter Details Date Type Department Care Team (Latest Contact Info) Description 09/22/2023 8:00 AM EDT TH Visit (TeleHealth) [place] [address] Kimberly Nixon APRN [facility] [place] [address] scan Social History Tobacco Use Types Packs/Day Years [...] as of this encounter Progress Notes * Kimberly Nixon, CERTIFIED PHLEBOTOMY TECHNICIAN - 09/22/2023 8:00 AM EDT Images from the original note were not included. [facility] TELEMEDICINE PROGRAM Chief Complaint: Marco Antonio Xiong is a 77 y.o. patient referred for consultation by Kadi Lane, Naina cough and findings on CT chest of dilated esophagus and retained contents History of Present Illness: 77 y.o. 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 said it would go away and it did. Routt from the doctor yesterday that his lung cancer is back. Denies dysphagia, regurgitation, heartburn, reflux, no chest pain. No GI symptoms. Current Regimen: Past Treatments: Review of systems: 14-point review of systems reviewed and negative except as above. Medications: Outpatient Medications Prior to Visit Medication Sig Dispense Refill omeprazole (PriLOSEC) [address] capsule Take 1 capsule by mouth daily. 30 capsule 11 benzonatate (Tessalon) 100 mg capsule Take 1 capsule by mouth 3 times daily as needed for Cough. 30tablet 0 metoprolol succinate XL (Toprol-XL) 25 mg ER 24 hr tablet Take 0.5 tablets by mouth daily. 45 tablet 3 atorvastatin (Lipitor) 40 mg tablet Take 1 tablet by mouth daily. 30 tablet 1 clarithromycin (Biaxin) 500 mg tablet Take 1 tablet by mouth 2 times daily. clopidogreL (Plavix) 75 mg tablet Take 1 tablet by mouth daily. 90 tablet 3 nitroGLYcerin (Nitrostat) 0.4 mg Tablet, Sublingual Place 1 tablet under the tongue every 5 minutesas needed for Chest pain. 30 tablet 3 multivitamin (THERAGRAN) Tablet Take 1 tablet by mouth daily. aspirin EC 81 mg Tablet, Delayed Release (E.C.) Take 81 mg by mouth daily. No facility-administered medications prior to visit. Allergies: has No Known Allergies. Past Medical History: has a past medical history of Chronic obstructive pulmonary disease, Gastroesophageal reflux disease, Lung nodule, and Pulmonary asbestosis. Past Surgical History: has a past surgical history that includes Bronchoscopy Rigid Flex W ComputerAssist Img Navigation ([id number]) (N/A, 02/23/2022); Thoracentesis Needle/Cath Pleura W Imaging ([id number])(N/A, 02/23/2022); [facility] Ebus Dx/Tx Intervention Perph Les ([id number]) (N/A, 02/23/2022); [facility] Ebus Guided Sampl 1/2 Node Station/Strux ([id number]) (N/A, 02/23/2022); Bronchoscopy, Transbronch Biopsy ([id number]) (N/A, 02/23/2022); Bronchoscopy, Transbron Aspir Bx ([id number]) (N/A, 02/23/2022); Bronchoscopy, Diagnostic W Lavage ([id number]) (N/A, 02/23/2022); Bronchoscopy, Rx Aspir Pulm Tree ([id number]) (N/A, 02/23/2022); Laryngoscopy, Direct, Diagnostic ([id number]) (N/A, 02/26/2022); CT Guided Biopsy Lung (07/21/2022); CT Guided Drain Chest Tube/Pleural Drain (07/21/2022); Cath [facility] Left Heart Cath & Arts W/Inj & Angio Img S&I ([id number]) (N/A, 08/28/2022); [facility] Ebus Guided Sampl 3/> Node Station/Strux ([id number]) (N/A, 09/16/2023); Thoracentesis Needle/Cath Pleura W Imaging ([id number]) (N/A, 09/16/2023); and Bronchoscopy, Chato Stafford ([id number]) (N/A, 09/16/2023). Family History: family history includes Malignant Hyperthermia in his mother. denies family history of colon cancer, IBD, or celiac disease in mother father or other family members Social History: reports that he quit smoking about 37 years ago. His smoking use included cigarettes. He started smoking about 68 years ago. He has a 64.00 pack- year smoking history. He has never used smokeless tobacco. He reports that he does not currently use alcohol. He reports that he does not use drugs. No Physical Examination performed during this telemedicine visit Laboratory studies, imaging, and procedures: 08/17/2023 CT chest w contrast at [facility] Assessment/Plan: Mr. Xiong is a 77 y.o. patient with the following GI issues: #Findings on CT August 2023 of dilated esophagus and retained contents in the context of metastatic squamous cell carcinoma. He was notified yesterday by Dr Rafael Pope of this cancer recurrence. Ispoke to Marco Antonio and his - he denies dysphagia, odynophagia, heartburn, acid reflux, chest pain,abdominal pain and all GI symptoms. We discussed that we could do a High Resolution Esophageal Manometry study to investigate for esophageal motor disorders such as achalasia - but this CT finding likely reflects esophageal changes from his cancer and doing HREM would not change attendant from a GI perspective without symptoms. We agreed he will contact me if he has any GI symptoms or would likefurther investigation from a GI perspective. Recommendations Diagnostics Therapeutics Follow Up #Follow-up if dysphagia develops or other GI symptoms Due to the consultative nature of our practice, the patient should continue to work with primary care provider as the primary point of contact for urgent issues, medication refills and adjustments asneeded for continuity of care purposes in between visits to our center based on the recommendationsabove. The patient was located in [place] at the time of this visit. Total time spent on encounter today: 30 minutes Time spent reviewing records prior to this encounter on day of appointment: 10 minutes Time spent during encounter with patient including counselin minutes Time spent documenting encounter after office visit on day of appointment: 5 minutes Kimberly Nixon APRN [facility] [place] [address] documented in this encounter Plan of Treatment Upcoming Encounters Date Type Department Care Team (Late st Contact Info) Description 06/20/2024 10:00 AM EST Office Visit Hematology/Oncology at [address] [phone] Lia Barber APRN [address] [place] [address] [place] [address] 06/20/2024 10:30 AM EST Infusion Hematology Oncology at [address] [phone] 07/04/2024 11:00 AM EST Office Visit Hematology/Oncology at [address] [phone] Lia Barber, [address] HEMATOLOGY AND ONCOLOGY [place], [place] [address] 07/04/2024 11:30 AM EST Infusion Hematology Oncology at [address] [phone] Scheduled Referrals Name Type Priority Associated Diagnoses Order Schedule Referral to Gastroenterology Outpatient Referral Routine Cough, persistent Ordered: 09/01/2023 documented as of this encounter Visit Diagnoses Diagnosis Abnormal finding on CT scan Other nonspecific (abnormal) findings on radiological and other examinations of body structure documented in this encounter Care Teams Clerical Assistant Relationship Specialty Start Date End Date Kadi Lane PA [facility] [place] [address] PCP - General Family Medicine 07/28/16 documented as of this encounter
--- OUTSIDE RECORDS SUMMARY | 2024-06-20 01:25 | XMS_ITS | Encounter Summary ---
Author Organization [facility] [place] [address] Care Team Providers Care Order Department Supervisor Name Role Phone Kadi Lane Primary Care Provider [phone] Encounter Details Date Type Department Care Team (Late st Contact Info) Description 10/27/2023 3:30 PM EDT Office Visit Radiation Oncology at [address] [phone] Rafael Pope MD [facility] [address] Non-small cell cancer of right lung Social [...] Sign Reading Time Taken Comments Blood Pressure 134/64 10/27/2023 3:39 PM EDT Pulse 69 10/27/2023 3:39 PM EDT Temperature 37 ??C (98.6 ??F) 10/27/2023 3:39 PM EDT Respiratory Rate 16 10/27/2023 3:39 PM EDT Oxygen Saturation 100% 10/27/2023 3:39 PM EDT Inhaled Oxygen Concentration - - Weight 57.2 kg (126 lb) 10/27/2023 3:39 PM EDT w ith shoes Height - - Body Mass Index 20.03 09/01/2023 11:06 AM EDT documented in this encounter Progress Notes * Katt Olivarez MD - 10/27/2023 3:30 PM EDT ON TREATMENT VISIT NOTE Marco Antonio Xiong is a 77 y.o. male with a cT3N0, Stage IIB, NSCLC of the RLL s/p SBRT 50Gy/5Fx (completed 10/20/22) now being treated for biopsy proven mediastinal adenopathy. Current treatment dose: 3 Gy in 1 fractions. Anticipated total dose: 30 Gy in 10 fractions. Concomitant Therapy: N Evaluation of Port Verification Films: PORT films have been reviewed, please see ARIA for details. Changes in medical condition - no interval change Pain: Pain associated with right upper thorax, intermittent, can escalate to level 7/10. Uses tylenol PRN. Dyspnea/Cough: Severe cough with hemoptysis over last 3w. Coughing fits can be very bothersome and frequent. No dyspnea at rest, mostly occurs with moderate activity. Esophagitis: None Nutrition Assessment: Weight : 57.2kg initial Change: NA Objective: Vitals: 10/27/23 1539 BP: 134/64 Pulse: 69 Resp: 16 Temp: 37 ??C (98.6 ??F) TempSrc: Temporal SpO2: 100% Weight: 57.2 kg (126 lb) SKIN: no skin erythema Assessment: No toxicity, treatment started today. CTCAE TOXICITY GRADES (see below for henderson): Site Grade Skin 0 Cough 0 Dyspnea 0 Esophagitis 0 TREATMENT RESPONSE: No change Plan: Continue RT per prescription Skin: Jeans cream QD Pain control: no intervention needed at this time Esophagitis: no intervention needed at this time Cough/Dyspnea: No intervention needed at this time Alimentation: followed by historic sites registrar, weight stable, all by mouth Katt Olivarez MD Radiation Oncology Resident PGY-2 [facility] Radiation Oncology Attending Statement: I saw the patient with Dr. Olivarez and agree with the history, physical, assessment, and plan as stated. -Rafael Pope MD, PhD CTCAE v4.03 scales for reference Skin 0 [...] 10:00 AM EST Office Visit Hematology/Oncology at [address] [phone] [address] HEMATOLOGY AND ONCOLOGY [place], [place] [phone] 06/20/2024 10:30 AM EST Infusion Hematology Oncology at [address] [phone] 07/04/2024 11:00 AM EST Office Visit Hematology/Oncology at [address] [phone] Lia Barber [address] HEMATOLOGY AND ONCOLOGY [place], [place] [address] 07/04/2024 11:30 AM EST Infusion Hematology Oncology at [address] [phone] documented as of this encounter Visit Diagnoses Diagnosis Non-small cell cancer of right lung documented in this encounter Care Teams Order Department Supervisor Relationship Specialty Start Date End Date Kadi Lane PA [address] [place] [address] PCP - General Family Medicine 07/28/16 documented as of this encounter
--- OUTSIDE RECORDS SUMMARY | 2024-06-20 01:26 | XMS_ITS | Encounter Summary ---
Author Organization [facility] [place] [address] Care Team Providers Care Paper Core Machine Operator Name Role Phone Kadi Lane Primary Care Provider Encounter Details Date Type Department Care Team (Latest Contact Info) Description 08/04/2023 Travel Social History Tobacco Use Types Packs/Day Years Used Date Smoking Tobacco: Former Cigarettes 2 32 1 956 - 1987 Smokeless Tobacco: Former Alcohol Use Standard Drinks/Week Comments Not Currently [...] AM EST Office Visit Hematology/Oncology at [address] [phone] Lia Barber [address] HEMATOLOGY AND ONCOLOGY [place], [place] [phone] 06/20/2024 10:30 AM EST Infusion Hematology Oncology at [address] [phone] 07/04/2024 11:00 AM EST Office Visit Hematology/Oncology at [address] [phone] HEMATOLOGY AND ONCOLOGY [place], [place] [address] 07/04/2024 11:30 AM EST Infusion Hematology Oncology at [address] [phone] documented as of this encounter Visit Diagnoses Not on filedocumented in this encounter Care Teams Paper Core Machine Operator Relationship Specialty Start Date End Date Kadi Lane PA [address] [place] [address] PCP - General Family Medicine 07/28/16 documented as of this encounter
--- OUTSIDE RECORDS SUMMARY | 2024-06-20 01:26 | XMS_ITS | Encounter Summary ---
[place] [address] Care Team Providers Care Assembling Machine Operator Name Role Phone Kadi Lane Primary Care Provider [phone] Reason for Referral * Consultation (Urgent) - Closed Specialty Diagnoses / Procedures Referred By Contmarlys t Referred To Contact Thoracic Surgery Diagnoses Malignant neoplasm of lower lobe, right bronchus or lung Other nonspecific abnormal finding of lung field Cough, unspecified type CT DONE AT [facility] ON 07/19/[address] PA [address] [place] [address] [facility] [address] [place] [phone] Referral ID Status Reason Start Date Expiration Date V isits Requested Visits Authorized [id number] Closed Consult, Test & Treat PCP Updated and/or Approved 08/03/2023 08/02/2024 6 6 Encounter Details Date Type Department Care Team (Latest Contact Info) Description 08/03/2023 Transcribe Orders eDH Incoming Referrals [phone] PA [address] [place] [address] Malignant neoplasm of lower lobe, right bronchus or lung; Other nonspecific abnormal finding of lung field; Cough, unspecified type Social History Tobacco Use Types Packs/Day Years Used Date Smoking Tobacco: Former Cigarettes 2 32 1 956 - 1986 Smokeless Tobacco: Former Alcohol Use Standard Drinks/Week [...] AM EST Office Visit Hematology/Oncology at [address] [phone] [place] [address] 06/20/2024 10:30 AM EST Infusion Hematology Oncology at [address] [phone] 07/04/2024 11:00 AM EST Office Visit Hematology/Oncology at [address] [phone] Lia Barber[address] [place] [address] 07/04/2024 11:30 AM EST Infusion Hematology Oncology at [address] [phone] Scheduled Referrals Name Type Priority Associated Diagnoses Orde r Schedule Amb Ref To Thoracic Surgery Outpatient Referral Urgent Malignant neoplasm of lower lobe, right bronchus or lung Other nonspecific abnormal finding of lung field Cough, unspecified type Ordered: 08/03/2023 documented as of this encounter Visit Diagnoses Diagnosis Malignant neoplasm of lower lobe, right bronchus or lung Other nonspecific abnormal finding of lung field Cough, unspecified type documented in this encounter Care Teams Assembling Machine Operator Relationship Specialty Start Date End Date Kadi Lane PA [address] [place] [address] PCP - General Family Medicine 07/28/16 documented as of this encounter
--- OUTSIDE RECORDS SUMMARY | 2024-06-20 01:26 | XMS_ITS | Encounter Summary ---
Author Organization [facility] [place] [address] Care Team Providers Care Warehouse Associate Name Role Phone Kadi Lane Primary Care Provider [phone] Encounter Details Date Type Department Care Team (Latest Contact Info) Description 08/12/2023 Travel Social History Tobacco Use Types Packs/Day Years Used Date Smoking Tobacco: Former Cigarettes 2 32 1 956 - 3006 Smokeless Tobacco: Former Alcohol Use Standard Drinks/Week [...] AM EST Office Visit Hematology/Oncology at [address] [phone] Lia Barber [address] HEMATOLOGY AND ONCOLOGY [place], [place] [address] 06/20/2024 10:30 AM EST Infusion Hematology Oncology at [address] [phone] 07/04/2024 11:00 AM EST Office Visit Hematology/Oncology at [address] [phone] HEMATOLOGY AND ONCOLOGY [place], [place] [address] 07/04/2024 11:30 AM EST Infusion Hematology Oncology at [address] [phone] documented as of this encounter Visit Diagnoses Not on filedocumented in this encounter Care Teams Warehouse Associate Relationship Specialty Start Date End Date Kadi Lane PA [address] [place] [address] PCP - General Family Medicine 07/28/16 documented as of this encounter
--- OUTSIDE RECORDS SUMMARY | 2024-06-20 01:26 | XMS_ITS | Encounter Summary ---
Author Organization [facility] [place] [address] Care Team Providers Care Deicer Finisher Name Role Phone Kadi Lane Primary Care Provider [phone] Encounter Details Date Type Department Care Team (Late st Contact Info) Description 07/26/2023 2:00 PM EDT Ancillary Procedure Radiology Library at [facility] [place] [address] Rafael Pope MD [facility] [place] [address] Social History Tobacco Use Types Packs/Day Years Used Date Smoking Tobacco: Former Cigarettes 2 32 1 686 - 1987 Smokeless Tobacco: Former Alcohol Use [...] AM EST Office Visit Hematology/Oncology at [address] [phone] Lia Barber APRN [address] [place] [address] DR HEMATOLOGY AND ONCOLOGY [place], [place] [phone] 06/20/2024 10:30 AM EST Infusion Hematology Oncology at [address] [phone] 07/04/2024 11:00 AM EST Office Visit Hematology/Oncology at [address] [phone] Lia Barber APRN [address] [place] [address] DR HEMATOLOGY AND ONCOLOGY [place], [place] [address] 07/04/2024 11:30 AM EST Infusion Hematology Oncology at [address] [phone] documented as of this encounter Procedures Procedure Name Priority Date/Time Associated Diagnosis Comments FILM LIBRARY STORAGE ONLY DX CHEST Routine 07/26/2023 2:00 PM EDT documented in this encounter Results * Film Library- Storage Only DX Chest (07/26/2023 2:00 PM EDT) 08/19/2023 7:54 PM EDT Narrative SATNAM - 08/19/2023 7:54 PM EDT This exam is auto-finalizing. It's purpose is for storage only. Rafael Pope MD IMG FILM LIBRARY ORD ERABLES [place], [place] documented in this encounter Visit Diagnoses Not on filedocumented in this encounter Care Teams Deicer Finisher Relationship Specialty Start Date End Date Kadi Lane PA [address] [place] [address] PCP - General Family Medicine 07/28/16 documented as of this encounter
--- OUTSIDE RECORDS SUMMARY | 2024-06-20 01:26 | XMS_ITS | Encounter Summary ---
[place] [address] Care Team Providers Care Tmd Teacher Name Role Phone Kadi Lane Primary Care Provider [phone] Reason for Visit * Reason Onset Date Comments Pre Procedure Call 09/03/2023 Plavix hold r equest Encounter Details Date Type Department Care Team (Late st Contact Info) Description 09/03/2023 Telephone [place] [phone] Bertha Colindres Pre Procedure Call (Plavix hold request) Social History Tobacco Use Types Packs/Day Years [...] encounter Miscellaneous Notes * Telephone Encounter - Suma Botello RN - 09/10/2023 2:53 PM EDT I have spoken to pt, Bhavna, Ronal and Denita, the whole patients family one at a time! Bhavna tells me that pt stopped taking Plavix on 09/01/23, pts scheduled procedure isnt until 09/16/23. I have educated Bhavna that Plavix should never be held more than 5 days unless specifically instructed to do so. Bhavna expresses verbal understanding of the re-education. I have instructed pt to take Plavix now and then start holding Plavix tomorrow. Clear instructions were given to hold Plavix until after the procedure. Pt is also taking ASA 81 mg. However, they have ASA 325 mg also. I have instructed pt to continue forward taking ASA 325 mg QD. Bhavna expressed clear understanding of these instructions and did not have any further questionsfor me. Suma Botello RN Department of Pulmonary 5C, [facility] [place] / Pager: [phone] * Telephone Encounter - Jo Dowell RN - 09/10/2023 2:22 PM EDT Call and spoke with Marco Antonio's (she called back yesterday; see note)Bhavna. Explained I was calling to confirm hold on his Plavix. She states he's already held it. Further notes she received a voicemail earlier last week to hold his medication. Advised that I had called on 09/05 and left a message to call back to DISCUSS a hold on his medication prior ot his procedure, but did not advise to start the hold. Unsure when the exact hold date started, but was supposed to take last dose of Plavix TODAY, which is 5 days before his procedure. Advised at this time, to continue on hold unless she hears otherwise. Spoke with Suma Coe RN. She will reacj out to Bhavna's to discuss further, but likely suggest that he take Plavix today and then reiniate hold tomorrow. * Telephone Encounter - Jo Dowell RN - 09/06/2023 1:[address] Ledbetter via secure chat, ok to hold plavix 5-7 days prior to procedure Call to patient. LM for return call. * Telephone Encounter - Jo Dowell RN - 09/03/2023 10:35 AM EDT Guidelines for hold prebronch include 5 day hold on Plavix Patient had Mid-LAD stent placed 08/2022. Technically he's past the 1 year window. OV 07/[address] Ledbetter; - Continue DAPT for now absent any bleeding complications in the context of residual LM disease. Bystrict guidelines and certainly if any planned surgeries, could transition to single antiplatelet therapy at one year post-intervention. Favor monotherapy with plavix. Patient is technically one year post-intervention but will double check with Dr. Ledbetter ok tohold for 5 days. documented in this encounter Plan of Treatment Upcoming Encounters Date Type Department Care Team (Late st Contact Info) Description 06/20/2024 10:00 AM EST Office Visit Hematology/Oncology at [address] [phone] [address] [place] [address] 06/20/2024 10:30 AM EST Infusion Hematology Oncology at [address] [phone] 07/04/2024 11:00 AM EST Office Visit Hematology/Oncology at [address] [phone] [address] [place] [address] 07/04/2024 11:30 AM EST Infusion Hematology Oncology at [address] [phone] documented as of this encounter Visit Diagnoses Not on filedocumented in this encounter Care Teams Tmd Teacher Relationship Specialty Start Date End Date Kadi Lane PA [address] [place] [address] PCP - General Family Medicine 07/28/16 documented as of this encounter
--- OUTSIDE RECORDS SUMMARY | 2024-06-20 01:26 | XMS_ITS | Encounter Summary ---
[place] [address] Care Team Providers Care Director Global Sales Name Role Phone Kadi Lane Primary Care Provider [phone] Encounter Details Date Type Department Care Team (Late st Contact Info) Description 09/09/2023 [place] [address] Darling López, RN Social History Tobacco Use Types Packs/Day [...] encounter Miscellaneous Notes * Telephone Encounter - Darling López RN - 09/09/2023 10:15 AM EDT Copied from [facility] #[id number]. Topic: Specialty Dept CRMs - Generic Call >> Sep 06, 2023 3:19 PM Davon Tomas wrote: Specialist: Yessenia Relationship (if other than patient-full name): of patient Bhavna Reason for Call: calling back to speak with JAKE Tried to return call to Bhavna. No answer. Message left asking for her to call back. documented in this encounter Plan of Treatment Upcoming Encounters Date Type Department Care Team (Late st Contact Info) Description 06/20/2024 10:00 AM EST Office Visit Hematology/Oncology at [address] [phone] [address]ia Barber [address] HEMATOLOGY AND ONCOLOGY [place], [place] [address] 06/20/2024 10:30 AM EST Infusion Hematology Oncology at [address] [phone] 07/04/2024 11:00 AM EST Office Visit Hematology/Oncology at [address] [phone] HEMATOLOGY AND ONCOLOGY [place], [place] [address] 07/04/2024 11:30 AM EST Infusion Hematology Oncology at [address] [phone] documented as of this encounter Visit Diagnoses Not on filedocumented in this encounter Care Teams Director Global Sales Relationship Specialty Start Date End Date Kadi Lane [place] [address] PCP - General Family Medicine 07/28/16 documented as of this encounter
--- OUTSIDE RECORDS SUMMARY | 2024-06-20 01:26 | XMS_ITS | Encounter Summary ---
Author Organization [facility] [place] [address] Care Team Providers Care Medical Accountant Name Role Phone Kadi Lane Primary Care Provider [phone] Encounter Details Date Type Department Care Team (Late st Contact Info) Description 07/26/2023 Interpretation Only Radiology Library at [facility] [place] [phone] Rafael Pope MD [facility] [place] [address] Social History Tobacco Use Types Packs/Day Years Used Date Smoking Tobacco: Former Cigarettes 2 32 1 836 - 1987 Smokeless Tobacco: Former Alcohol Use [...] AM EST Office Visit Hematology/Oncology at [address] [phone] Lia Barber APRN [address] [place] [address] DR HEMATOLOGY AND ONCOLOGY [place], [place] [address] 06/20/2024 10:30 AM EST Infusion Hematology Oncology at [address] [phone] 07/04/2024 11:00 AM EST Office Visit Hematology/Oncology at [address] [phone] Lia Barber APRN [address] [place] [address] DR HEMATOLOGY AND ONCOLOGY [place], [place] [phone] 07/04/2024 11:30 AM EST Infusion Hematology Oncology at [address] [phone] documented as of this encounter Procedures Procedure Name Priority Date/Time Associated Diagnosis Comments FILM LIBRARY STORAGE ONLY DX CHEST Routine 07/26/2023 2:00 PM EDT documented in this encounter Results * Film Library- Storage Only DX Chest (07/26/2023 2:00 PM EDT) 08/19/2023 7:54 PM EDT Narrative [facility] - 08/19/2023 7:54 PM EDT This exam is auto-finalizing. It's purpose is for storage only. Rafael Pope MD IMG FILM LIBRARY ORD ERABLES Performing Organization Address City/State/[facility] Co de Phone Number [place], [place] documented in this encounter Visit Diagnoses Not on filedocumented in this encounter Care Teams Medical Accountant Relationship Specialty Start Date End Date Kadi Lane PA [address] [place] [address] PCP - General Family Medicine 07/28/16 documented as of this encounter
--- OUTSIDE RECORDS SUMMARY | 2024-06-20 01:26 | XMS_ITS | Encounter Summary ---
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 Abnormal findings on diagnostic imaging of lung Cough, unspecified type Kadi Lane PA [address] [place] [address] [facility] [address] [place] [phone] Referral ID Status Reason Start Date Expiration Date V isits Requested Visits Authorized [id number] Canceled Consult, Test & Treat 08/05/2023 08/04/2024 6 6 Encounter Details Date Type Department Care Team (Latest Contact Info) Description 08/05/2023 Transcribe Orders eDH Incoming Referrals [phone] PA [address] [place] [address] 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; Abnormal findings on diagnostic imaging of lung; Cough, unspecified type Social History Tobacco Use [...] AM EST Office Visit Hematology/Oncology at [address] [phone] [address]ia [address] [place] [address] 06/20/2024 10:30 AM EST Infusion Hematology Oncology at [address] [phone] 07/04/2024 11:00 AM EST Office Visit Hematology/Oncology at [address] [phone] [place] [address] 07/04/2024 11:30 AM EST Infusion Hematology Oncology at [address] [phone] Scheduled Referrals Name Type Priority Associated Diagnoses Orde r Schedule Amb Ref To Thoracic Surgery Outpatient Referral Urgent 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 Abnormal findings on diagnostic imaging of lung Cough, unspecified type Ordered: 08/05/2023 documented as of this encounter Visit Diagnoses Diagnosis 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
--- OUTSIDE RECORDS SUMMARY | 2024-06-20 01:26 | XMS_ITS | Encounter Summary ---
Author Organization [facility] [place] [address] Care Team Providers Care Hr Operations Advisor Name Role Phone Kadi Lane Primary Care Provider [phone] Encounter Details Date Type Department Care Team (Latest Contact Info) Description 07/21/2023 1:25 PM EST Ancillary Procedure Radiology Library at [place] [phone] Rafael Pope MD [facility] [place] [address] Non-small cell cancer of right lung Social [...] AM EST Office Visit Hematology/Oncology at [address] [phone] Lia Barber APRN [address] [place] [address] DR HEMATOLOGY AND ONCOLOGY [place], [place] [address] 06/20/2024 10:30 AM EST Infusion Hematology Oncology at [address] [phone] 07/04/2024 11:00 AM EST Office Visit Hematology/Oncology at [address] [phone] Lia Barber APRN [address] [place] [address] DR HEMATOLOGY AND ONCOLOGY [place], [place] [phone] 07/04/2024 11:30 AM EST Infusion Hematology Oncology at [address] [phone] documented as of this encounter Procedures Procedure Name Priority Date/Time Associated Diagnosis Comments REQUEST FOR 2ND READ CT CHEST Routine 07/21/2023 1:21 PM EST Non-small cell cancer of right lung documented in this encounter Results * (ABNORMAL) Request For 2nd Read CT Chest (07/21/2023 1:21 PM EST) Anatomical Region Laterality Modality Chest SO Impressions 07/22/2023 1:42 PM EST Evolving posttreatment changes in the right lung base. Similar moderate right pleural effusion. UNEXPECTED FINDING of increased mediastinal lymph nodes as detailed above. These are highly suspicious for joey metastases. Thank you for letting us participate in the care of this patient. ??If you are a health care provider and have any questions regarding this report, please contact the number below. ??For patients who have questions please contact the health day care director that requested your imaging first. ? Narrative 07/22/2023 1:42 PM EST EXAMINATION: REQUEST FOR 2ND READ CT CHEST CLINICAL HISTORY: s/p SBRT to right lung malignancy; Sending Institution [facility]; Date of exam [id number]; I believe a reinterpretation of this exam may alter care of Patient. Yes TECHNIQUE: Outside contrast enhanced CT of the chest 07/19/2023. COMPARISON: 01/26/2023. FINDINGS: Pulmonary parenchyma: There is further increased collapse of the right lower lobe and middle lobe which is compatible with increased expected posttreatment scarring. Unchanged mild emphysematous changes and linear atelectasis/scarring on the left. Airways: Central and segmental airways are patent. Mild bronchiectasis in the area of postradiation change. Pleura: Moderate pleural effusion on the right is similar to prior exam. Diffuse pleural calcifications worse on the right than on the left are unchanged. Lymph nodes: Of note is the increased size of subcarinal, precarinal, and right paratracheal lymph nodes as well as of a lymph node to the right of the esophagus at the level of the thoracic inlet (series 3 image 18). A lymph node in the anterior mediastinum has also increased in size (image 38). Heart and vasculature: Stable size of the heart. Severe coronary artery atherosclerotic calcifications. Calcifications at the aortic valve. Mitral annular calcification. Limited upper abdomen: Moderate size hiatal hernia has increased in size. Skeleton: Degenerative changes. Resulting Agency Comment Unexpected Finding Rafael Pope MD IMG OUTSIDE INTERPRE TATION ORDERABLES documented in this encounter Visit Diagnoses Diagnosis Non-small cell cancer of right lung documented in this encounter Care Teams Hr Operations Advisor Relationship Specialty Start Date End Date Kadi Lane PA [address] [place] [address] PCP - General Family Medicine 07/28/16 documented as of this encounter
--- OUTSIDE RECORDS SUMMARY | 2024-06-20 01:26 | XMS_ITS | Encounter Summary ---
[place] [address] Care Team Providers Care Yeast Cake Cutter Name Role Phone Kadi Lane Primary Care Provider [phone] Reason for Visit * Reason Comments Follow-up * Consultation (Urgent) - Closed Specialty Diagnoses / Procedures Referred By Jorge Luis t Referred To Contact Thoracic Surgery Diagnoses Malignant neoplasm of lower lobe, right bronchus or lung Other nonspecific abnormal finding of lung field Cough, unspecified type CT DONE AT [place] ON 07/19/[address] PA [address] [place] [address] [facility] [address] [place] [phone] Referral ID Status Reason Start Date Expiration Date V isits Requested Visits Authorized [id number] Closed Consult, Test & Treat PCP Updated and/or Approved 08/03/2023 08/02/2024 6 6 Encounter Details Date Type Department Care Team (Late st Contact Info) Description 08/12/2023 12:15 PM EDT Office [place] [phone] Charlie Meier MD [facility] [place] [address] Non-small cell cancer of right lung Social [...] Sign Reading Time Taken Comments Blood Pressure 123/99 08/12/2023 12:22 PM EDT Pulse 82 08/12/2023 12:22 PM EDT Temperature 36.5 ??C (97.7 ??F) 08/12/2023 12:22 PM E DT Respiratory Rate 17 08/12/2023 12:22 PM EDT Oxygen Saturation 98% 08/12/2023 12:22 PM EDT Inhaled Oxygen Concentration - - Weight 64 kg (141 lb 1.5 oz) 08/12/2023 12:22 PM EDT Height 168.9 cm (5' 6.5) 08/12/2023 12:22 PM ED T Body Mass Index 22.43 08/12/2023 12:22 PM EDT documented in this encounter Patient Instructions * Patient Instructions* Mary Douglas RN - 08/12/2023 12:15 PM EDT Thank you for seeing Dr. Meier in clinic today. You are now on an as needed basis with thoracic surgery. Please call us if you have any questions at [phone]. documented in this encounter Progress Notes * Chana Enciso APRN - 08/12/2023 12:15 PM EDT Thoracic Surgery Attending Outpatient Consultation Note Charlie Meier MD [place] [address] FAX: Today, 08/12/2023, we saw Mr. 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 He was last seen in our clinic by Dr Goodman with plans to follow up with oncology and cardiologygiven his positive stress test for which he underwent a cardiac cath with stents placed. He was most recently seen by Dr Pope for surveillance of his lung cancer. He was being treated for bronchitis and his CT Chest demonstrated some increased mediastinal lymphadenopathy. The plan at that time was to follow up Dr Pope in 6 weeks (currently scheduled for 09/07) with a repeat CT Chest. He reports also recently being seen by his PCP who obtained a CXR due to a cough and told him he had wateron his lungs and recommended he follow up in our clinic. Today he reports a persistent productive cough with white phlegm and headaches. He just finished a week long course of clarithromycin. He is currently breathing comfortably and denies fevers, weight loss, fatigue, night sweats or chills. On physical examination today, his height is 168.9 cm (5' 6.5) and weight is 64 kg (141 lb 1.5 oz). His temporal temperature is 36.5 ??C (97.7 ??F). His blood pressure is 123/99 (abnormal) and his pulse is 82. His respiration is 17 and oxygen saturation is 98%. Body mass index is 22.43 kg/m??. In general, he is in no acute distress. His pupils are reactive. His lungs are clear to auscultation bilaterally. His heart has a regular rate with no murmurs. There is no supraclavicular or cervical lymphadenopathy. His abdomen is soft and nontender. His extremities are warm with no edema. Neurologically, he is grossly intact. A Chest CT performed on 07/19/23 shows: Evolving posttreatment changes in the right lung base. Similar moderate right pleural effusion. UNEXPECTED FINDING of increased mediastinal lymph nodes as detailed above. These are highly suspicious for joey metastases. In summary, Mr. 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 We discussed the consensus recommendations of continued surveillance for which he will obtain with Dr Pope given his new enlargedlymph nodes with a short interval CT scan as noted in his clinic note from 07/21/23. We reviewed withhim the pleural effusion that was noted on his CT Chest is stable in size compared to his post-treatment CT scans and not significantly changed from February of 2022 . We recommended continued follow up with Dr Pope and he may follow up in our clinic as needed. If he were to need mediastinal sampling of the enlarged lymph nodes, he could be referred back to Dr. Moseley in interventional pulmonary who did his procedure in February of 2022. This patient was seen and examined with Dr Meier. Chana Enciso APRN 08/12/2023 Thoracic Surgery [facility] I have seen the patient and reviewed the resident's above note and I agree with the details as written. I have personally reviewed the relevant imaging. The assessment and plan were formulated in discussion with me and I agree with them as documented. I discussed the above with Dr. Pope, who agrees with this plan. Charlie Meier MD 08/12/2023 documented in this encounter Plan of Treatment Upcoming Encounters Date Type Department Care Team (Late st Contact Info) Description 06/20/2024 10:00 AM EST Office Visit Hematology/Oncology at [address] [phone] [address]ia Barber [address] HEMATOLOGY AND ONCOLOGY [place], [place] [phone] 06/20/2024 10:30 AM EST Infusion Hematology Oncology at [address] [phone] 07/04/2024 11:00 AM EST Office Visit Hematology/Oncology at [address] [phone] HEMATOLOGY AND ONCOLOGY [place], [place] [phone] 07/04/2024 11:30 AM EST Infusion Hematology Oncology at [address] [phone] Scheduled Referrals Name Type Priority Associated Diagnoses Orde r Schedule Amb Ref To Thoracic Surgery Outpatient Referral Urgent Malignant neoplasm of lower lobe, right bronchus or lung Other nonspecific abnormal finding of lung field Cough, unspecified type Ordered: 08/03/2023 documented as of this encounter Visit Diagnoses Diagnosis Non-small cell cancer of right lung documented in this encounter Care Teams Yeast Cake Cutter Relationship Specialty Start Date End Date Kadi Lane PA [address] [place] [address] PCP - General Family Medicine 07/28/16 documented as of this encounter
--- OUTSIDE RECORDS SUMMARY | 2024-06-20 01:26 | XMS_ITS | Encounter Summary ---
Author Organization [facility] [place] [address] Care Team Providers Care Ammunition Components Inspector Name Role Phone Kadi Lane Primary Care Provider [phone] Encounter Details Date Type Department Care Team (Late st Contact Info) Description 07/19/2023 Interpretation Only Radiology Library at [facility] [place] [phone] Rafael Pope MD [facility] [place] [address] Social History Tobacco Use Types Packs/Day Years Used Date Smoking Tobacco: Former Cigarettes 2 32 1 406 - 1987 Smokeless Tobacco: Former Alcohol Use [...] 10:00 AM EST Office Visit Hematology/Oncology at [address] [phone] Lia Barber APRN [address] [place] [address] DR HEMATOLOGY AND ONCOLOGY [place], [place] [address] 06/20/2024 10:30 AM EST Infusion Hematology Oncology at [address] [phone] 07/04/2024 11:00 AM EST Office Visit Hematology/Oncology at [address] [phone] Lia Barber APRN [address] [place] [address] DR HEMATOLOGY AND ONCOLOGY [place], [place] [phone] 07/04/2024 11:30 AM EST Infusion Hematology Oncology at [address] [phone] documented as of this encounter Procedures Procedure Name Priority Date/Time Associated Diagnosis Comments FILM LIBRARY STORAGE ONLY CT CHEST Routine 07/19/2023 9:15 AM EST documented in this encounter Results * Film Library- Storage Only CT Chest (07/19/2023 9:15 AM EST) 07/21/2023 9:34 AM EST Narrative RAD - 07/21/2023 9:34 AM EST This exam is auto-finalizing. It's purpose is for storage only. Rafael Pope MD IMG FILM LIBRARY ORD ERABLES Performing Organization Address City/State/[facility] Co de Phone Number [place], [place] documented in this encounter Visit Diagnoses Not on filedocumented in this encounter Care Teams Ammunition Components Inspector Relationship Specialty Start Date End Date Kadi Lane PA [address] [place] [address] PCP - General Family Medicine 07/28/16 documented as of this encounter
--- OUTSIDE RECORDS SUMMARY | 2024-06-20 01:26 | XMS_ITS | Encounter Summary ---
Author Organization [facility] [place] [address] Care Team Providers Care Linen Clerk Name Role Phone Kadi Lane Primary Care Provider [phone] Encounter Details Date Type Department Care Team (Late st Contact Info) Description 08/25/2023 1:30 PM EDT Office Visit Radiation Oncology at [address] [phone] Rafael Pope MD [facility] [place] [address] Non-small cell cancer of right lung Social [...] Sign Reading Time Taken Comments Blood Pressure 129/57 08/25/2023 1:31 PM EDT Pulse 55 08/25/2023 1:31 PM EDT Temperature 36.7 ??C (98.1 ??F) 08/25/2023 1:31 PM ED T Respiratory Rate 20 08/25/2023 1:31 PM EDT Oxygen Saturation 98% 08/25/2023 1:31 PM EDT Inhaled Oxygen Concentration - - Weight 64.1 kg (141 lb 6.4 oz) 08/25/2023 1:31 P M EDT Height - - Body Mass Index 22.48 08/12/2023 12:22 PM EDT documented in this encounter Progress Notes * Rafael Pope MD - 08/25/2023 1:30 PM EDT Images from the original note were not included. 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 Pain can be severe, 9/10. Pulmonary No dyspnea at rest, mostly with moderate activity Cough He notes significant increase in cough, now frequently occurring. He notes no hemoptysis, productive of sputum. Nutrition Issues / Weight Loss No issues Smoking Status Denies Other No Issues I have personally reviewed the imaging studies referenced above. Exam: Patient Vitals for the past 24 hrs: Temp Pulse Resp BP SpO2 08/25/23 1331 36.7 ??C (98.1 ??F) 55 20 129/57 98 % Physical Exam Constitutional: Appearance: He is well-developed. 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 Imaging findings are not informative regarding the etiology of his cough. We discussed concerns thatin the absence of resolution of adenopathy it may be worthwhile to consider bronchoscopy. I will discuss with pulmonology. 2. Toxicity: Cough: significant increase in cough of uncertain etiology. He had bronchitis that resolved over a month ago, but no return of any other upper respiratory symptoms. Plan: Discuss with pulmonology regarding next steps. Thank you for allowing me to participate in the care of Marco Antonio Xiong. RAFAEL POPE MD New Orders: No orders of the defined types were placed in this encounter. [facility] [place] ([facility]) [facility] [employer] Commission on Cancer (ACS Jorge) Accredited Cancer Program [employer] (A[employer]) Accredited Radiation Oncology Program documented in this encounter Plan of Treatment Upcoming Encounters Date Type Department Care Team (Late st Contact Info) Description 06/20/2024 10:00 AM EST Office Visit Hematology/Oncology at [address] [phone] Lia Barber [address] HEMATOLOGY AND ONCOLOGY [place], [place] [address] 06/20/2024 10:30 AM EST Infusion Hematology Oncology at [address] [phone] 07/04/2024 11:00 AM EST Office Visit Hematology/Oncology at [address] [phone] HEMATOLOGY AND ONCOLOGY [place], [place] [address] 07/04/2024 11:30 AM EST Infusion Hematology Oncology at [address] [phone] documented as of this encounter Visit Diagnoses Diagnosis Non-small cell cancer of right lung documented in this encounter Care Teams Linen Clerk Relationship Specialty Start Date End Date Kadi Lane PA [address] [place] [address] PCP - General Family Medicine 07/28/16 documented as of this encounter
--- OUTSIDE RECORDS SUMMARY | 2024-06-20 01:26 | XMS_ITS | Encounter Summary ---
[place] [address] Care Team Providers Care Fur Storage Clerk Name Role Phone Kadi Lane Primary Care Provider [phone] Reason for Visit * Auth/Cert (Routine) Specialty Diagnoses / Procedures Referred By Contac t Referred To Contact Diagnoses Malignant neoplasm of lung, unspecified laterality, unspecified part of lung Lymphadenopathy Pleural effusion Lung cancer, Lymphadenopathy and Pleural effusion /bronch with EBUS and Thoracentesis / ga/ Fide Nelson Procedures PRO [facility] EBUS GUIDED SAMPL 3/> NODE STATION/STRUX PRO THORACENTESIS NEEDLE/CATH PLEURA W IMAGING BRONCH, W ENDOBRONCHIAL ULTRASOUND (EBUS) GUIDED SAMPLING, 3+ NODES (WRVU 4.96) THORACENTESIS, NEEDLE OR CATHETER; WITH IMAGE GUIDANCE (WRVU 2.27) Bipin Moseley MD [facility] [place] [address] [facility] Referral ID Status Reason Start Date Expiration Date Visits Re quested Visits Authorized [id number] 1 1 Encounter Details Date Type Department Care Team (Late st Contact Info) Description 09/16/2023 10:28 AM EDT Anesthesia [place] [id number] Pio Broderick MD [facility] [place] [address] Anesthesia Record Procedure Summary Procedure Name Responsible Anesthesiologist Anesthesia Start Time Anesthesia Stop Time BRONCH, W ENDOBRONCHIAL ULTRASOUND (EBUS) GUIDED SAMPLING, 3+ NODES (WRVU 4.96) Pio Broderick MD 09/16/23 1028 09/16/23 1118 Events Date Time Event Comment 09/16/2023 1007 1028 AN Verify 1028 Start 1028 An Start Data 1034 An Induction 1035 An Intubation 1036 Anesthesia Ready 1115 Extubation/LMA Out 1118 an stop data 1118 Recovery or ICU Handoff [place] ent care was transferred to the destination unit staff after review of the patient's medical history, current anesthetic/surgical status and plan, according to the Provider Handoff Checklist. 1118 Stop Meds Name Total IV Lidocaine 40 mg PropofoL 200 mg PropofoL INF 374.4 mg lactated ringers infusion 400 mL * Agents Name O2 * Blood No blood administrations on file. Lines, Drains, and Airways Type Details Placement Removal Incision 07/21/22; 1152; Righ t; back; non-laparascopic puncture; Biopsy site 07/21/22 1152 by Meg Godwin RN (RETIRED) Peripheral IV Line - Single Lumen 08/28/22; 1112; cephalic vein (lateral side of arm), left; [id number] catheter system; 20 gauge, 1 in length; Willard DOTY; distraction; LDA not present upon assessment; 02/14/24; 1010 08/28/22 1112 by Marleni Jenkins 02/14/24 1010 by Vy Cagle RN (RETIRED) Peripheral IV Line - Single Lumen 08/28/22; 1112; cephalic vein (lateral side of arm), right; [id number] catheter system; 18 gauge, 1 in length; Willard DOTY; distraction, intradermal injection; LDA not present upon assessment; 02/14/24; 1011 08/28/22 1112 by Marleni Jenkins 02/14/24 1011 by Vy Cagle RN PIV 09/16/23; 1012; 22 gauge; cephalic vein (lateral side of arm), right; Jeremiah Valderrama RN; distraction; 09/16/23; 1253 09/16/23 1012 by Zainab Valderrama RN 09/16/23 1253 by Raquel Douglas RN Supraglottic Mask Ventilation: No t Attempted (0); LMA Type: iGel; LMA Size: 4; Inserted by: Jair; Removal Date: 09/16/23; Removal Time: 11109/16/23 1035 by Gopal Adam CRNA 09/16/23 1115 by Gopal Adam CRNA documented in this encounter Social History Tobacco Use Types Packs/Day Years [...] PM EDT documented as of this encounter OR Notes * Anesthesia Postprocedure Evaluation - Pio Broderick MD - 09/16/2023 11:19 AM EDT Department of Anesthesiology Post-procedure Note Patient: Marco Antonio Xiong Procedure Summary Date: 09/16/23 Room / Location: [facility] ENDO 1 / [facility] ENDOSCOPY Anesthesia Start: 1028 Anesthesia Stop: 1118 Procedures: BRONCH, W ENDOBRONCHIAL ULTRASOUND (EBUS) GUIDED SAMPLING, 3+ NODES (WRVU 4.96) THORACENTESIS, NEEDLE OR CATHETER; WITH IMAGE GUIDANCE (WRVU 2.27) BRONCH, RIGID OR FLEX, W OR W/O FLURO, W/EXCISION TUMOR (WRVU 4.93) (Bronchus) Diagnosis: Malignant neoplasm of lung, unspecified laterality, unspecified part of lung Lymphadenopathy Pleural effusion (Lung cancer, Lymphadenopathy and Pleural effusion /bronch with EBUS and Thoracentesis / ga/ Fide Nelson) Surgeons: Bipin Msoeley MD Responsible Provider: Pio Broderick MD Anesthesia Type: general ASA Status: 3 All Anesthesia Providers: Anesthesiologist: Pio Broderick MD DIRECTOR OF SEARCH ENGINE MARKETING: Gopal Adam CRNA Vitals Value Taken Time BP Temp Pulse Resp SpO2 Pain Level Patient Location: PACU/[facility] Level of Consciousness: Awake and Alert Pain Management: Satisfactory Analgesia PONV: None Cardiovascular Status: At Baseline and Hemodynamically Stable Respiratory Status: At Baseline and Room Air Postoperative Fluid Status: Intravascular EUvolemia Possible Anesthetic Complications: NONE apparent at time of evaluation Final Primary Anesthesia Type: General (The anesthetic type performed was the same as planned.) Comments: Pio Broderick MD * Anesthesia Preprocedure Evaluation - Pio Broderick MD - 09/15/2023 3:42 PM EDT Pre-Anesthesia Evaluation for: Marco Antonio Xiong a 77 y.o. male. Procedure(s): BRONCH, W ENDOBRONCHIAL ULTRASOUND (EBUS) GUIDED SAMPLING, 3+ NODES (WRVU 4.96) THORACENTESIS, NEEDLE OR CATHETER; WITH IMAGE GUIDANCE (WRVU 2.27) Patient Active Problem List Diagnosis Date Noted ??? CAD (coronary artery disease) 08/28/2022 ??? Non-small cell lung cancer 08/12/2022 ??? Pleural effusion 07/21/2022 ??? 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 Chronic obstructive pulmonary disease ??? Gastroesophageal reflux disease ??? Lung nodule ??? Pulmonary asbestosis Past Surgical History: Procedure Laterality Date ??? CT GUIDED BIOPSY LUNG 07/21/2022 CT Guided Biopsy Lung 07/21/2022 Danny Barrios MD [facility] RAD CT SCAN ??? CT GUIDED DRAIN CHEST TUBE/PLEURAL DRAIN 07/21/2022 CT Guided Drain Chest Tube/Pleural Drain 07/21/2022 Danny Barrios MD [facility] RAD CT SCAN ? ? PRG CATH PLIA LEFT HEART CATH & ARTS W/INJ & ANGIO IMG S&I N/A 08/28/2022 CORONARY ANGIOGRAPHY; W C,POSSIBLE PCI (WRVU 5.6) performed by Leti Hopper MD at [facility] CATHLABS ??? [facility] 1/2 NODE STATION/STRUX N/A 02/23/2022 BRONCH, W ENDOBRONCHIAL ULTRASOUND (EBUS) GUIDED SAMPLING, 1/2 NODES (WRVU 4.71) performed by Bipin Moseley MD at [facility] MAIN OR ??? PRO BRNSCHSC TNDSC EBUS DX/TX INTERVENTION PERPH LES N/A 02/23/2022 BRONCH, W EBUS DURING INTERVENTION FOR PERIPH LESION (WRVU 1.4) performed by Bipin Moseley MD at [facility] MAIN OR ??? PRO BRONCHOSCOPY RIGID FLEX W COMPUTER ASSIST IMG NAVIGATION N/A 02/23/2022 BRONCHOSCOPY,RIGID OR FLEX,WITH IMAGE GUIDANCE ( ROBOT / MONARCH ) performed by Bipin Moseley MD at [facility] MAIN OR ??? PRO BRONCHOSCOPY, DIAGNOSTIC W LAVAGE N/A 02/23/2022 BRONCHOSCOPY, RIGID OR FLEXIBLE, WITH BRONCHIAL ALVEOLAR LAVAGE (WRVU 2.88) performed by Bipin Moseley MD at [facility] MAIN OR ??? PRO BRONCHOSCOPY, TRANSBRON ASPIR BX N/A 02/23/2022 BRONCHOSCOPY W/TRANSBRONCHIAL NEEDLE ASPIRATION BX,FLEXIBLE (WRVU 4) performed by Bipin Moseley MD at [facility] MAIN OR ??? PRO BRONCHOSCOPY, TRANSBRONCH BIOPSY N/A 02/23/2022 BRONCHOSCOPY (FLEXIBLE OR RIGID) W\TRANSBRONC BX (WRVU 3.8) performed by Bipin Recinos MDat [facility] MAIN OR ??? PRO BRONCHOSCOPY, TREAT ASPIR PULM TREE N/A 02/23/2022 BRONCHOSCOPY, W/THERAPEUTIC ASPIRATION OF TRACHEOBRONCHIAL TREE (WRVU 3.16) performed by Bipin Moseley MD at [facility] MAIN OR ??? PRO LARYNGOSCOPY, DIRECT DIAGNOSTIC N/A 02/26/2022 LARYNGOSCOPY, DIRECT, DIAGNOSIS, EXCEPT (WRVU 2.63) performed by Charlie Marte MD [facility] MAIN OR ??? PRO THORACENTESIS NEEDLE/CATH PLEURA W IMAGING N/A 02/23/2022 THORACENTESIS, NEEDLE OR CATHETER; WITH IMAGE GUIDANCE (WRVU 2.27) performed by Bipin Moseley MD at [facility] MAIN OR Social History Tobacco Use ??? Smoking status: Former Packs/day: 2.00 Years: 32.00 Additional pack years: 0.00 Total pack years: 64.00 Types: Cigarettes Start date: 1955 Quit date: 1986 Years since quittin.3 ??? Smokeless tobacco: Former Substance Use Topics ??? Alcohol use: Not Currently Social History Substance and Sexual Activity Drug Use Never No Known Allergies Medications: MAR and/or home medications have been reviewed. Physical Exam: Preprocedure Vitals Current as of 02/23/22 0857 BP: 139/62 Pulse: 51 Resp: 18 SpO2: 100 Temp: 36.2 ??C (97.2 ??F) Height: 170.2 cm (5' 7) (02/23/22) Weight: 61.7 kg (136 lb) (02/23/22) BMI: 21.3 IBW: 66.1 kg (145 lb 12.2 oz) Last edited 02/23/22 0756 by SR Airway Assessment: Mallampati: II TM distance: >3 FB Neck ROM: full Cardiovascular Assessment: Rhythm: regular Rate: normal system normal Pulmonary Assessment: unlabored breathing (+) decreased breath sounds pulmonary exam normal Dental Assessment: (+) edentulous Misc Assessment: Patient is wearing No contact(s). IV access: Peripheral line Last Filed Perioperative Cognitive Screening Value Time User 4AT TOTAL Score: 0 02/25/2022 4:24 PM Katt Wiseman RN Anesthesia Plan: ASA 3 general, with a(n) intravenous induction 77 yo 64 kg M with PMH: asbestosis of the lungs, GERD (omeprazole), family history (mom and son) ofMH, he has never had an episode, HTN (metoprolol), HLD (atorvastatin), ASCVD (NTG, clopidogrel, ASA), patient presents here for bronchoscopy possible thoracentesis. Allergies: NKDA NPO status: Appropriate Plan: GETA, nontriggering anesthetic, temp monitoring, PIV x 1, standard ASA monitors Region - Intrathoracic Non-Cardiac Informed Consent: Anesthetic plan and risks discussed with patient. Plan discussed with DIRECTOR OF SEARCH ENGINE MARKETING and attending. Anesthesia Screening documented in this encounter Plan of Treatment Upcoming Encounters Date Type Department Care Team (Late st Contact Info) Description 06/20/2024 10:00 AM EST Office Visit Hematology/Oncology at [address] [phone] Lia Barber APRN [address] [place] [address] DR HEMATOLOGY AND ONCOLOGY [place], [place] [phone] 06/20/2024 10:30 AM EST Infusion Hematology Oncology at [address] [phone] 07/04/2024 11:00 AM EST Office Visit Hematology/Oncology at [address] [phone] Lia Barber APRN [address] [place] [address] DR HEMATOLOGY AND ONCOLOGY [place], [place] [phone] 07/04/2024 11:30 AM EST Infusion Hematology Oncology at [address] [phone] documented as of this encounter Visit Diagnoses Not on filedocumented in this encounter Administered Medications Inactive Administered Medications - up to 3 most recent administrations Medication Order MAR Action Action Date Dose Rate Site lactated ringers infusion 100 mL/hr, Intravenous, CONTINUOUS, Starting on Aileen 09/16/23 at 1015, Until Aileen 09/16/23 at 1253, Endoscopy (Day of Procedure) New Bag 09/16/2023 10:28 AM EDT lidocaine (pf) (Xylocaine) (20 mg/mL) 2% injection syringe Intravenous, PRN, Starting on Aileen 24 at 1034, Until Aileen 24 at 1118, Anesthesia Intra-op, Routine Given 09/16/2023 10:34 AM EDT 40 mg propofoL (Diprivan) (10 mg/mL) infusion Intravenous, CONTINUOUS PRN, Starting on Aileen 524 at 1034, Until Aileen 524 at 1118, Anesthesia Intra-op, Routine New Bag 09/16/2023 10:34 AM EDT 150 mcg/kg/min 57.6 mL/hr propofoL (Diprivan) 10 mg/mL bolus injection (Anesthesia) Intravenous, PRN, Starting on Aileen 524 at 1034, Until Aileen 24 at 1118, Anesthesia Intra-op Given 09/16/2023 10:34 AM EDT 200 mg documented in this encounter Care Teams Fur Storage Clerk Relationship Specialty Start Date End Date Kadi Lane PA [address] [place] [address] PCP - General Family Medicine 07/28/16 documented as of this encounter
--- OUTSIDE RECORDS SUMMARY | 2024-06-20 01:26 | XMS_ITS | Encounter Summary ---
[place] [address] Care Team Providers Care Defective Cigarette Slitter Name Role Phone Kadi Lane Primary Care Provider [phone] Reason for Visit * Reason Comments Medication Refill Encounter Details Date Type Department Care Team (Late st Contact Info) Description 07/08/2023 Refill Cardiology at [address] [phone] Isaac Ledbetter MD [facility] [place] [address] Medication Refill Social History Tobacco Use Types Packs/Day Years Used Date Smoking Tobacco: Former Cigarettes 2 32 1 096 - 1987 Smokeless Tobacco: Former Alcohol Use [...] 10:00 AM EST Office Visit Hematology/Oncology at [address] [phone] Lia Barber APRN [address] [place] [address] DR HEMATOLOGY [place] [address] 06/20/2024 10:30 AM EST Infusion Hematology Oncology at [address] [phone] 07/04/2024 11:00 AM EST Office Visit Hematology/Oncology at [address] [phone] Lia Barber APRN [address] [place] [address] DR HEMATOLOGY AND ONCOLOGY [place], [place] [phone] 07/04/2024 11:30 AM EST Infusion Hematology Oncology at [address] [phone] documented as of this encounter Visit Diagnoses Diagnosis Chest pain, unspecified type documented in this encounter Care Teams Defective Cigarette Slitter Relationship Specialty Start Date End Date Kadi Lane [place] [address] PCP - General Family Medicine 07/28/16 documented as of this encounter
--- OUTSIDE RECORDS SUMMARY | 2024-06-20 01:26 | XMS_ITS | Encounter Summary ---
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 Name Role Phone Kadi Lane Primary Care Provider [phone] Reason for Visit * Auth/Cert (Routine) Specialty Diagnoses / Procedures Referred By Contac t Referred To Contact Diagnoses Malignant neoplasm of lung, unspecified laterality, unspecified part of lung Lymphadenopathy Pleural effusion Lung cancer, Lymphadenopathy and Pleural effusion /bronch with EBUS and Thoracentesis / ga/ Fide Nelson Procedures [facility] EBUS GUIDED SAMPL 3/> NODE STATION/STRUX PRO THORACENTESIS NEEDLE/CATH PLEURA W IMAGING BRONCH, W ENDOBRONCHIAL ULTRASOUND (EBUS) GUIDED SAMPLING, 3+ NODES (WRVU 4.96) THORACENTESIS, NEEDLE OR CATHETER; WITH IMAGE GUIDANCE (WRVU 2.27) Bipin Moseley MD [facility] [place] [address] [facility] Referral ID Status Reason Start Date Expiration Date Visits Re quested Visits Authorized [id number] 1 1 Encounter Details Date Type Department Care Team (Late st Contact Info) Description 09/16/2023 10:13 AM EDT - 09/16/2023 11:43 AM EDT Surgery [place] [address] Bipin Moseley MD [facility] [place] [address] BRONCH, W ENDOBRONCHIAL ULTRASOUND (EBUS) GUIDED SAMPLING, 3+ NODES (WRVU 4.96) Social History Tobacco Use Types Packs/Day Years Used Date Smoking Tobacco: Former Cigarettes 2 32 1 956 - 1986 Smokeless Tobacco: Never Tobacco Cessation:Counseling Given: Not [...] place to sleep or slept in a care home (including now)? No 08/14/2022 [facility] Inpatient Questions Answer Date Recorded Does Anyone [...] Sign Reading Time Taken Comments Blood Pressure 137/72 09/16/2023 11:40 AM EDT Pulse 75 09/16/2023 9:51 AM EDT Temperature 36.3 ??C (97.3 ??F) 09/16/2023 9:51 AM ED T Respiratory Rate 14 09/16/2023 11:40 AM EDT Oxygen Saturation 99% 09/16/2023 11:40 AM EDT Inhaled Oxygen Concentration - - Weight - - Height - - Body Mass Index - - documented in this encounter Discharge Instructions * Discharge Instructions* Bertha Kline RN - 09/16/2023 11:20 AM EDT Images from the original note were not included. Bronchoscopy: What to Expect at Home Your Recovery Bronchoscopy lets your doctor look at your airway through a tube called a bronchoscope. Afterward, you may feel tired for 1 or 2 days. Your mouth may feel very dry for several hours after the procedure. You may also have a sore throat and a hoarse voice for a few days. Sucking on throat lozenges orgargling with warm salt water may help soothe your sore throat. If a sample of tissue (biopsy) was taken, you may spit up a small amount of blood or have bloody saliva. This is normal. This care sheet gives you a general idea about how long it will take for you to recover. But each person recovers at a different pace. Follow the steps below to get better as quickly as possible. How can you care for yourself at home? Activity Rest when you feel tired. Getting enough sleep will help you recover. Avoid strenuous activities, such as bicycle riding, jogging, weight lifting, or aerobic exercise, until your doctor says it is okay. Diet You can eat your normal diet. If your stomach is upset, try bland, low-fat foods like plain rice, broiled chicken, toast, and yogurt. If it is painful to swallow, start out with cold drinks, flavored ice pops, and ice cream. Next, try soft foods like pudding, yogurt, canned or cooked fruit, scrambled eggs, and mashed potatoes. Avoid eating hard or scratchy foods like chips or raw vegetables. Avoid orange or tomato juice and otheracidic foods that can sting the throat. Drink plenty of fluids to avoid becoming dehydrated (unless your doctor tells you not to). Do not drink alcohol. Medicines Take pain medicines exactly as directed. If the doctor gave you a prescription medicine for pain, take it as prescribed. If you are not taking a prescription pain medicine, ask your doctor if you can take an insb-jtx-[id number] medicine. If you think your pain medicine is making you sick to your stomach: Take your medicine after meals (unless your doctor has told you not to). Ask your doctor for a different pain medicine. If your doctor prescribed antibiotics, take them as directed. Do not stop taking them just because you feel better. You need to take the full course of antibiotics. Follow-up care is a henderson part of your treatment and safety. Be sure to make and go to all appointments, and call your doctor if you are having problems. It's also a good idea to know your test resultsand keep a list of the medicines you take. Other instructions For your safety, do not drive or operate machinery until the medicine wears off and you can think clearly. Your doctor may tell you not to drive or operate machinery until the day after your test. Do not sign legal documents or make major decisions until the medicine wears off and you can think clearly. The anesthesia can make it hard for you to fully understand what you are agreeing to. Additional Information for Sedation Patients For patients who received sedation: You may have received medications before and/or during your procedure which effects your judgement and reaction time. Do not drive, operate machinery, drink alcoholic beverages or make important decisions for 24 hours. Be careful on stairs as you may be unsteady on your feet. Do not smoke if you are alone. IV site: Slight redness or tenderness is normal, you can use a warm compress if you would like. If tenderness and/or redness increase or if foul drainage occurs, please contact your Doctor. Please call [phone] before 8pm Mon-Fri with problems, questions or concerns. If you call after 8pm or on weekends, call the Hospital at [phone] and ask to speak to the Neurodiagnostic Technician technical healthcare consultant and the automatic operator will contact that person for you. When should you call for help? Call 911 anytime you think you may need emergency care. For example, call if: You passed out (lost consciousness). You have sudden chest pain and shortness of breath. You cough up large amounts of bright red blood. You have severe pain in your chest. You have severe trouble breathing. Call your doctor now or seek immediate medical care if: You cough up more than a few tablespoons of blood. You have pain that does not get better after you take pain medicine. You have a fever over 100??F. You still sound hoarse after a few days. You have bubbles under the skin around the collarbone. These may crackle and pop when you press on them. Watch closely for changes in your health, and be sure to contact your doctor if you have any problems. Where can you learn more? [facility] View your After Visit Summary and more online at [email or web address] If you would like to provide feedback about your hospital experience, please call the Office of Patient and Family Relations at . If you have received this After Visit Summary in error, please immediately return it in person to the department, or notify the [facility] Privacy Office by calling toll free at between the hours of 8AM and 5PM to arrange for our retrieval of the documents at no cost to you. Content Version: 12.2 ?? 2746-6944 [employer]. Care instructions adapted under license by [facility]. If you have questions about a medical condition or this instruction, always ask your healthcare professional. [employer] disclaims any warranty or liability for your use of this information. documented in this encounter Medications at Time of Discharge [...] (E.C.) Take 81 mg by mouth daily. metoprolol succinate XL (Toprol-XL) 25 mg ER 24 hr tabletIndications:Chest pain, unspecified type Take 0.5 tablets by mouth daily. 45 tablet 3 08/04/2023 11/15/2023 atorvastatin (Lipitor) 40 mg tabletIndications:Chest pain, unspecified type Take 1 tablet by mouth daily. 30 tablet 1 08/04/2023 10/21/2023 clarithromycin (Biaxin) 500 mg tablet Take 1 tablet by mouth 2 times daily. 07/12/2023 11/03/2023 documented as of this encounter H&P Notes * Bipin Moseley MD - 09/16/2023 10:33 AM EDT Interventional Pulmonology Pre-Procedure History & Physical SECTION OF PULMONARY/CRITICAL CARE MEDICIE Procedure: Bronchoscopy, endobronchial ultrasound (EBUS) and biopsy, right thoracentesis Reason for procedure: Lung cancer, Lymphadenopathy, and Pleural effusion See last note from Dr. Washburn. PHYSICAL EXAM: Patient Vitals for the past 8 hrs: BP Temp Temp src Pulse Resp SpO2 09/16/23 0951 154/78 36.3 ??C (97.3 ??F) Temporal 75 18 98 % Mental Status: Alert and oriented x3 Airway examination: Feasible Pulmonary: Clear to ausculation bilaterally, decr BS R base CV: RRR, no murmurs or gallops ASA Grade: ASA III (Patient has severe systemic disease that is not incapacitating) Assessment & Plan: Risks, benefits and alternatives of the procedure were explained and all questions were answered Consent to be signed Proceed with procedure as stated Bipin Moseley MD, 09/16/2023, 10:33 AM Interventional Pulmonology Section of Pulmonary & Critical Care Pager: [phone] Source Note - Jeannie Washburn MD - 09/01/2023 11:20 AM EDT Images from the original note were not included. INTERVENTIONAL PULMONOLOGY OUTPATIENT CONSULT NOTE SECTION OF PULMONARY & CRITICAL CARE MEDICINE I have been asked to see Marco Antonio Xiong in consultation at the request of Dr. Rafael Pope for the evaluation and management of mediastinal lymphadenopathy. History of present illness: Marco Antonio Xiong is a 77 y.o. 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 Initial diagnosis in 2021 after presenting with pleural effusion and RLL 4.3 cm nodule found to be FDG avid. Consulted with thoracic surgery at that time with recommended nba bronch with EBUS and thoracentesis, which was preformed 02/23/2022 with negative pathology of both nodule and lymph nodes. Received a course of azithromycin with follow up imaging demonstrating persistent RLL mass. UnderwentIR guided biopsy and pigtail chest tube placement 07/21/2022 with pathology confirming squamous cell carcinoma. Resection discussed with thoracic surgery and radiation oncology, with need for cardiac evaluation prior. Underwent LHC 08/2022 with evident CAD now s/p CLAUDIA to LAD. Proceeded with SBRT 10/07/2022-10/19/2022. He continues to follow with thoracic surgery and radiation oncology with recent imaging demonstrating persistent mediastinal lymphadenopathy and R effusion. In the setting of new dry cough, he is referred today. He presents today with his . He notes new cough that arose one month ago. Daily and productive of clear phlegm. It lasts usually in the afternoon from 1- 7pm and has been using OTC cough syrup with intermittent success. If the cough syrup is unsuccessful, it will self resolve in the evening withdenies cough at night. He is otherwise well without SOB, chest pain/ discomfort, reflux, dysphagia,nasal drip, fever, chills, night sweats, or weight loss. Review of systems: ROS otherwise as per HPI and other 12 point ROS is negative. Past Medical History: Diagnosis Date Chronic obstructive pulmonary disease Gastroesophageal reflux disease Lung nodule Pulmonary asbestosis Current Outpatient Medications: benzonatate (Tessalon) 100 mg capsule, Take 1 capsule by mouth 3 times daily as needed for Cough., Disp: 30 tablet, Rfl: 0 metoprolol succinate XL (Toprol-XL) 25 mg ER 24 hr tablet, Take 0.5 tablets by mouth daily., Disp: 45 tablet, Rfl: 3 atorvastatin (Lipitor) 40 mg tablet, Take 1 tablet by mouth daily., Disp: 30 tablet, Rfl: 1 clarithromycin (Biaxin) 500 mg tablet, Take 1 tablet by mouth 2 times daily., Disp: , Rfl: clopidogreL (Plavix) 75 mg tablet, Take 1 tablet by mouth daily., Disp: 90 tablet, Rfl: 3 nitroGLYcerin (Nitrostat) 0.4 mg Tablet, Sublingual, Place 1 tablet under the tongue every 5 minutes as needed for Chest pain., Disp: 30 tablet, Rfl: 3 multivitamin (THERAGRAN) Tablet, Take 1 tablet by mouth daily., Disp: , Rfl: aspirin EC 81 mg Tablet, Delayed Release (E.C.), Take 81 mg by mouth daily., Disp: , Rfl: omeprazole (PriLOSEC) [address] capsule, Take 1 capsule by mouth daily., Disp: 30 capsule, Rfl: 11 No Known Allergies Family History: Father: Denies malignancy Mother: Denies malignancy Social History: Smoking status: Former EtOH: Former. Social. Other drugs: Denies Employment: Former [employer] quit in the early . Occupational exposures: Endorses asbestos Exam: Patient Vitals for the past 24 hrs: Temp Pulse Resp BP SpO2 09/01/23 1106 35.6 ??C (96.1 ??F) 65 16 142/63 98 % Gen: Well-appearing, no distress. HEENT: EOMI, PERRLA, benign oropharynx without exudate or erythema. Neck: No cervical, submandibular, or supraclavicular LAD. CV: Regular rate and rhythm, normal S1/S2, no m/g/r. Pulm: Nonlabored breathing. Normal, symmetric chest wall expansion. Clear breath sounds bilaterally, decreased in RLL. No crackles or wheezes. Abd: Soft, nontender to palpation, non-distended with normoactive bowel sounds throughout. Ext: No clubbing or edema. Neuro: Strength and sensation intact. Accessory clinical data: I reviewed the following imaging studies with Marco Antonio Xiong: FGD avid RLL lesion 09/17/2022 08/17/2023: R pleural effusion with pleural plaques bilaterally. Mediastinal lymphadenopathy unchanged. Dilated Esophagus with retained contents I reviewed the results of pulmonary function tests performed on 07/02/2022: Parameter Value Predicted Z-score FVC 2.01 L 62% -2.28 FEV1 1.19 L 49% -2.69 FEV1/FVC 59% -1.87 DLCO 44% -3.84 Labs: Latest Reference Range & Units 07/21/22 11:55 Spec Type BF Pleural, Right Color BF [place] Appearance BF Cloudy WBC BF Ct <=499 Not Measured Polymorph % Not Measured Polymorph BF ABS Not Measured Mononuc % Not Measured Mononuc ABS Not Measured LDH BF unit/L >2,500 LDH, BF Type Pleural, Right Protein, BF g/dL 4.3 Protein BF Type Pleural, Right Trig BF mg/dL 58 Trig, BF Type Pleural, Right Lab Results Component Value Date WBC 6.4 08/29/2022 HGB 11.7 (L) 08/29/2022 HCT 34.1 (L) 08/29/2022 PLATELET 230 08/29/2022 CHLPL 160 07/07/2022 TRIG 182 07/07/2022 HDL 34 07/07/2022 LDLCHOL 90 07/07/2022 ALT 17 02/23/2022 AST 20 02/23/2022 NA 136 08/29/2022 K 3.9 08/29/2022 CL 101 08/29/2022 CREATININE 0.77 (L) 08/29/2022 BUN 15 08/29/2022 CO2 27 08/29/2022 GLUCFASTING 104 (H) 08/28/2022 HA1C 5.5 07/07/2022 Assessment: My assessment at this time is that Mr. Marco Antonio Xiong is a 77 y.o. 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 Initial diagnosis in 2021 after presenting with pleural effusion and RLL 4.3 cm nodule found to be FDG avid. Consulted with thoracic surgery at that time with recommended nba bronch with EBUS and thoracentesis, which was preformed 02/23/2022 with negative pathology of both nodule and lymph nodes. Received a course of azithromycin with follow up imaging demonstrating persistent RLL mass. UnderwentIR guided biopsy and pigtail chest tube placement 07/21/2022 with exudative effusion and biopsy pathology confirming squamous cell carcinoma. Resection discussed with thoracic surgery and radiation oncology, with need for cardiac evaluation prior. Underwent LHC 08/2022 with evident CAD now s/p CLAUDIA to L AD. Proceeded with SBRT 10/07/2022-10/19/2022. He continues to follow with thoracic surgery and radiation oncology with recent imaging demonstrating persistent mediastinal lymphadenopathy. In the setting of new dry cough, he is referred today. Cough that arose one month ago without preceding symptoms or event. Daily and productive of clear phlegm only in the evening but without presentation at night. He is otherwise well without SOB, chestpain/ discomfort, reflux, dysphagia, nasal drip, fever, chills, night sweats, or weight loss. Discussed possible origins of his cough which include reflux especially in the setting of dilated esophagus and retained contents. Will send GI referral and increaed Protonix to 40 mg PO daily form 20 mg, new script sent. Lastly, address the persistent effusion and lymphadenopathy. Without new masses or recurrence in area of former RLL mass and lymphadenopathy has been present prior but remains. Will discuss with Dr. Pope the utility of EBUS and/ or thoracentesis and likelihood of recurrence. Plan: -Referral to Gastroenterology for dilated esophagus on CT chest with cough, concern for reflux -Increase Omeprazole to 40 mg PO daily -Will discuss with Dr. Pope the utility of EBUS and/ or thoracentesis and likelihood of recurrence Jeannie Washburn MD Pulmonary and Critical Care PGY-4 Pager [phone] 09/01/2023 12:04 PM Attending attestation: Mr. Marco Antonio Xiong was seen, examined and discussed with Dr. Washburn. I reviewed the above note and made any necessary edits. I agree in full with the history, exam, assessment and plan. It is most likely that the cough is post- viral in etiology with GERD also being high on the differential. As the most recent chest CT does not reveal significant change, malignancy is lower on the differential, though clearly possible. Should Dr. Pope require tissue for a definitive diagnosis, we will proceed with bronchoscopy with EBUS and possible thoracentesis. All of Mr. Xiong's questions were answered and he agrees with the plan. Bipin Moseley MD Pulmonary and Critical Care Medicine [address] Room [address] [place] [address] Phone Pul Generic: [phone] [email or web address] Pager #[phone] documented in this encounter Miscellaneous Notes * Op Note - Bipin Moseley MD - 09/16/2023 10:34 AM EDT Images from the original note were not included. Interventional Pulmonology Bronchoscopy with EBUS-TBNA Operative Note SECTION OF PULMONARY & CRITICAL CARE MEDICINE PROCEDURE: Bronchoscopy with EBUS-Guided Transbronchial Needle Aspiration, TBNA additional stations, tumor excision Date / Time: 09/16/2023 / 11:15 AM Location: Endoscopy Procedure Attending: Dr. Moseley was present for the entire procedure. Others Present: Dr. Washburn, nursing, anesthesia, tech Indication(s) / Pre-Procedure Diagnosis: Mediastinal & hilar adenopathy and lung cancer PRE-PROCEDURE EVALUATION: Pre-procedure checks were completed. This includes relevant documentation (H&P, nursing assessment, pre-anesthesia/sedation assessment); labeled diagnostic and radiology studies matched to patient & properly displayed; availability of blood products, implants, devices and special equipment (matched to the patient); as well as site marking with patient involvement. Consent: Indications, risks, benefits and alternatives were explained during the informed consent process as stated on the informed consent form. Consent obtained from: patient Procedure Status: elective SEDATION, ANALGESIA, AND MONITORING: Medications: Refer to record of source. ASA Class: 3 Monitoring: Cardiac telemetry, pulse oximtery, blood pressure monitoring, capnography Time Out: A time out was performed prior to starting the procedure. Time out includes correct patient identity, agreement on procedure to be performed as stated on the informed consent, correct site and side (laterality). PROCEDURE IN DETAIL: The Fuji EBUS bronchoscope was inserted into the LMA. The vocal cords were within normal limits. The trachea, bilateral mainstem bronchi, and the bilateral segmental bronchi were all visualized. There was evidence of tumor eroding through the main rai. The distal airways were patent to the subsegmental level. Tumor excision was performed with 2.0 forceps. EBUS confirmed the presence of an enlarged node at stations 7 and 4R as well as a sub-cm node at station 4L. Multiple passes with EBUS TBNA were performed at each joey station. Note, all mediastinal, hilar, lobar and segmental stations were evaluated during the procedure and those not listed were not biopsied due to lymph node diameter< 5mm or node not visualized. Following this, hemostasis was confirmed, the procedure was terminated and the bronchoscope was withdrawn. Estimated Blood Loss: Minimal COMPLICATIONS: No immediate complications noted POST-PROCEDURE DIAGNOSIS: Mediastinal/Hilar Adenopathy, tumor eroding through main rai SPECIMENS REMOVED: Yes RECOMMENDATIONS: Await pathology results Bipin Moseley MD Chief, Section of Pulmonary and Critical Care Medicine [address] Room [address] [place] [address] Phone Pul Generic: [phone] [email or web address] Pager #[phone] * Op Note - Bipin Moseley MD - 09/16/2023 10:34 AM EDT Images from the original note were not included. INTERVENTIONAL PULMONOLOGY PROCEDURE NOTE SECTION OF PULMONARY & CRITICAL CARE MEDICINE PROCEDURE: right ultrasound guided thoracentesis Date / Time: 09/16/2023 11:18 AM Location: Endoscopy Procedure Attending: Dr. Moseley was present for the entire case. Others Present: Dr. Washburn, nursing, anesthesia, tech Indication(s) / Pre-Procedure Diagnosis: pleural effusion, lung cancer, h/o asbestos exposure PRE-PROCEDURE EVALUATION: Pre-procedure checks were completed. This includes relevant documentation (H&P, nursing assessment, pre-anesthesia/sedation assessment); labeled diagnostic and radiology studies matched to patient & properly displayed; availability of blood products, implants, devices and special equipment (matched to the patient); as well as site marking with patient involvement. Consent: Indications, risks, benefits and alternatives were explained during the informed consent process as stated on the informed consent form. Consent obtained from: Patient Procedure Status: elective SEDATION, ANALGESIA, AND MONITORING: Medications: Refer to record of source. ASA Class: ASA 3 - Patient with moderate systemic disease with functional limitations Monitoring: HR, BP, SpO2 Time Out: A time out was performed prior to starting the procedure. Time out includes correct patient identity, agreement on procedure to be performed as stated on the informed consent, correct site and side (laterality). PROCEDURE IN DETAIL: The patient was placed in a left lateral decubitus position. An ultrasound examination of the rightchest was performed which revealed a moderate hypoechoic effusion and normal lung sliding with normal diaphragmatic movement. An appropriate site for pleural access was marked on the superior surfaceof the right 9th rib, and 7 mL of 1 % lidocaine was used for local anesthesia. A 4mm incision was made, and an 8F catheter was inserted without difficulty. 300mL of slightly turbid serous fluid was removed without difficulty. Opening pressure was 0 cm H2O. Closing pressure was -5 cm H2O. The procedure was successfully completed. A post procedural chest x-ray was obtained. Estimated Blood Loss: Minimal COMPLICATIONS: No immediate complications noted POST-PROCEDURE DIAGNOSIS: Pleural Effusion SPECIMENS REMOVED: Yes RECOMMENDATIONS: Await pleural fluid analysis documented in this encounter Plan of Treatment Upcoming Encounters Date Type Department Care Team (Late st Contact Info) Description 06/20/2024 10:00 AM EST Office Visit Hematology/Oncology at [address] [phone] Lia Barber APRN [address] [place] [address] DR HEMATOLOGY AND ONCOLOGY [place], [place] [address] 06/20/2024 10:30 AM EST Infusion Hematology Oncology at [address] [phone] 07/04/2024 11:00 AM EST Office Visit Hematology/Oncology at [address] [phone] HEMATOLOGY AND ONCOLOGY [place], [place] [id number] 07/04/2024 11:30 AM EST Infusion Hematology Oncology at [address] [phone] documented as of this encounter Procedures Procedure Name Priority Date/Time Associated Diagnosis Comments XR CHEST ONE VIEW STAT 09/16/2023 11: 54 AM EDT CHOLESTEROL LEVEL BODY FLUID Routine 09/16/2023 11:10 AM EDT PROTEIN LEVEL BODY FLUID Routine 09/16/2023 11:10 AM EDT LACTATE DEHYDROGENASE BODY FLUID Routine 09/16/2023 11:10 AM EDT GLUCOSE LEVEL BODY FLUID Routine 09/16/2023 11:10 AM EDT PH BODY FLUID Routine 09/16/2023 11:10 AM EDT NON-MEDICAL RADIATION DOSIMETRIST FINAL REPORT Routine 09/16/2023 10:59 AM EDT NON-MEDICAL RADIATION DOSIMETRIST FINAL REPORT Routine 09/16/2023 10:59 AM EDT NON-MEDICAL RADIATION DOSIMETRIST FINAL REPORT Routine 09/16/2023 10:59 AM EDT SURGICAL PATHOLOGY REPORT Routine 09/16/2023 10:59 AM EDT SPECIMEN TO PATHOLOGY Routine 09/16/2023 10:59 AM EDT CYTOPATHOLOGY NON-GYNECOLOGICAL Routine 09/16/2023 10:59 AM EDT CYTOPATHOLOGY NON-GYNECOLOGICAL Routine 09/16/2023 10:59 AM EDT CYTOPATHOLOGY NON-GYNECOLOGICAL Routine 09/16/2023 10:59 AM EDT BODY FLUID CULTURE, AEROBIC Routine 09/16/2023 10:38 AM EDT NON-MEDICAL RADIATION DOSIMETRIST FINAL REPORT Routine 09/16/2023 10:37 AM EDT CYTOPATHOLOGY NON-GYNECOLOGICAL Routine 09/16/2023 10:37 AM EDT Bronchoscopy, Excis Lesn ([id number]) 09/16/2023 10:28 AM EDT Malignant neoplasm of lung, unspecified laterality, unspecified part of lung Lymphadenopathy Pleural effusion Thoracentesis Needle/Cath Pleura W Imaging ([id number]) 09/16/2023 10:28 AM EDT Malignant neoplasm of lung, unspecified laterality, unspecified part of lung Lymphadenopathy Pleural effusion [facility] Ebus Guided Sampl 3/> Node Station/Strux ([id number]) 09/16/2023 10:28 AM EDT Malignant neoplasm of lung, unspecified laterality, unspecified part of lung Lymphadenopathy Pleural effusion documented in this encounter Results * XR Chest One View (09/16/2023 11:54 AM EDT) WORKSTATION ID [id number] RAD Anatomical Region Laterality Modality Chest N/A Digital Radiogra phy Impressions 09/16/2023 12:24 PM EDT No pneumothorax, decreasing RIGHT pleural fluid Thank you for letting us participate in the care of this patient. ??If you are a health care provider and have any questions regarding this report, please contact the number below. ??For patients who have questions please contact the health childcare director that requested your imaging first. ? Electronically signed by: Erinn Horne MD, [facility] ([phone]), at 09/16/2023 12:24 PM Narrative 09/16/2023 12:24 PM EDT EXAMINATION: XR CHEST ONE VIEW CLINICAL HISTORY: Status post right-sided ultrasound-guided thoracocentesis TECHNIQUE: 1 view of the chest COMPARISON: 07/26/2023 FINDINGS: There are extensive bilateral pleural calcifications with chronic right-sided volume loss. There is a decreased amount of fluid in the RIGHT lung base with no pneumothorax following the thoracocentesis. No significant left-sided effusion Procedure Note Erinn Horne MD - 09/16/2023 EXAMINATION: XR CHEST ONE VIEW CLINICAL HISTORY: Status post right-sided ultrasound-guidedthoracocentesis TECHNIQUE: 1 view of the chest COMPARISON: 07/26/2023 FINDINGS: There are extensive bilateral pleural calcifications with chronicright-sided volume loss. There is a decreased amount of fluid in the RIGHT lung basewith no pneumothorax following the thoracocentesis. No significant left-sidedeffusion IMPRESSION No pneumothorax, decreasing RIGHT pleural fluid Thank you for letting us participate in the care of this patient. If youare a health care provider and have any questions regarding this report,please contact the number below. For patients who have questions please contactthe health childcare director that requested your imaging first. Electronically signed by: Erinn Horne MD, [facility]([phone]), at 09/16/2023 12:24 PM Bipin Moseley MD IMG DX ORDERABL ES * pH Body Fluid Pleural, Right (09/16/2023 11:10 AM EDT) pH, Fluid 7.04 [facility] Comment: Reference intervals are unavailable for this test in body fluids. Comparison of this result with the concentration in blood, serum, or plasma is recommended. This test has not been cleared by the [place] FDA. Performance characteristics of this test for the analysis of body fluids were determined by [facility] in accordance with CLIA requirements. This laboratory is qualified under CLIA to perform high-complexity testing. pH, Fld Type Pleural, Right [facility] Pleural, Right 09/16/2023 11 :10 AM EDT 09/16/2023 11:35 AM EDT Narrative Resulting Agency Comment Spec In Lab Bipin Moseley MD BODY FLUIDS AND STOOLS ORDERABLES Performing Organization Address [facility] Co de Phone Number [facility] [place] [address] * Protein Level Body Fluid Pleural, Right (09/16/2023 11:10 AM EDT) Protein, Fluid 4.9 g/dL [facility] Comment: Reference intervals are unavailable for this test in body fluids. Comparison of this result with the concentration in blood, serum, or plasma is recommended. This test has not been cleared by the [place] FDA. Performance characteristics of this test for the analysis of body fluids were determined by [facility] in accordance with CLIA requirements. This laboratory is qualified under CLIA to perform high-complexity testing. Prot, Fld Type Pleural, Right [facility] Pleural, Right 09/16/2023 11 :10 AM EDT 09/16/2023 11:35 AM EDT Narrative Resulting Agency Comment Spec In Lab Bipin Moseley MD BODY FLUIDS AND STOOLS ORDERABLES Performing Organization Address City/[facility]/ZIP Co de Phone Number [facility] [place] [address] * Lactate Dehydrogenase Body Fluid Pleural, Right (09/16/2023 11:10 AM EDT) Lactate Dehydrogenase, Fluid >2,500 unit/L [facility] Comment: Reference intervals are unavailable for this test in body fluids. Comparison of this result with the concentration in blood, serum, or plasma is recommended. This test has not been cleared by the [place] FDA. Performance characteristics of this test for the analysis of body fluids were determined by [facility] in accordance with CLIA requirements. This laboratory is qualified under CLIA to perform high-complexity testing. LDH, Fld Type Pleural, Right [facility] Pleural, Right 09/16/2023 11 :10 AM EDT 09/16/2023 11:35 AM EDT Narrative Resulting Agency Comment Spec In Lab Bipin Moseley MD BODY FLUIDS AND STOOLS ORDERABLES Performing Organization Address [facility] Co de Phone Number [facility] [place] [address] * Glucose Level Body Fluid Pleural, Right (09/16/2023 11:10 AM EDT) Glucose, Fluid 22 mg/dL [facility] Comment: Reference intervals are unavailable for this test in body fluids. Comparison of this result with the concentration in blood, serum, or plasma is recommended. This test has not been cleared by the [place] FDA. Performance characteristics of this test for the analysis of body fluids were determined by [facility] in accordance with CLIA requirements. This laboratory is qualified under CLIA to perform high-complexity testing. Gluc, Fld Type Pleural, Right [facility] Pleural, Right 09/16/2023 11 :10 AM EDT 09/16/2023 11:35 AM EDT Narrative Resulting Agency Comment Spec In Lab Bipin Moseley MD BODY FLUIDS AND STOOLS ORDERABLES Performing Organization Address City/[facility]/ZIP Co de Phone Number [facility] [place] [address] * Cholesterol Level Body Fluid Pleural, Right (09/16/2023 11:10 AM EDT) Cholesterol, Fluid 88 mg/dL [facility] Comment: Reference intervals are unavailable for this test in body fluids. Comparison of this result with the concentration in blood, serum, or plasma is recommended. This test has not been cleared by the [place] FDA. Performance characteristics of this test for the analysis of body fluids were determined by [facility] in accordance with CLIA requirements. This laboratory is qualified under CLIA to perform high-complexity testing. Chol, BF Type Pleural, Right [facility] Pleural, Right 09/16/2023 11 :10 AM EDT 09/16/2023 11:35 AM EDT Narrative Resulting Agency Comment Spec In Lab Bipin Moseley MD BODY FLUIDS AND STOOLS ORDERABLES [facility] [place] [address] * Surgical Pathology Report (09/16/2023 10:59 AM EDT) Final Diagnosis [id number] ? Location: 4T; EA09; A The signing pathologist has (i) examined the relevant preparation(s) for the specimen(s) and (ii) rendered or confirmed the diagnosis(es). . ?Surgical Pathology DIAGNOSIS A - Main rai, biopsy: - Squamous cell carcinoma. Electronically signed by: ?Shahzad Vazquez MD Verified: ??09/20/2023 18:32 ??Pathologist Performed at: ??-[facility] Dept. of Pathology, [place] [address] Respiratory Therapist Assistant: Brenda Garcia MD, FCAP, ??CLIA Certificate: [id number] ADDITIONAL STUDIES Immunohistochemistry Studies: Formalin-fixed, paraffin-embedded tissue sections are studied using the polymer technique with appropriate positive and negative controls. ?These IHC studies provide the pathologist with adjunctive diagnostic information. Antibody specificity has been verified by testing antibodies on a series of in-house tissues with known immunohistochemical performance characteristics. The clinical interpretation of any antibody positive staining or its absence is evaluated within the context of clinical presentation, morphology, histopathological criteria and other diagnostic tests. Block ? Antibody ?Result (Positive/Negative) A1 ?p40 ?Positive ?TTF1 ? Negative SPECIMEN(S) SUBMITTED A - main rai, biopsy (Multiple) CLINICAL INFORMATION Lung cancer, lymphadenopathy and pleural effusion SPECIMEN PROCESSING A - Labeled/Fixative: Main rai, formalin. Quantity/Size: Four, averaging 0.3 cm. Tissue Description: Soft, pink tissues. Sections/Processing: Submitted in toto ??in 1 cassette labeled A1. ??sns 09/20/2023 6:32 PM EDT [facility] LUNG STRUCTURE / Unknown 09/16/2023 10:59 AM EDT 09/16/2023 10:59 AM EDT Bipin Moseley MD PATHOLOGY/CYTOL OGY ORDERABLES Performing Organization Address [facility]/State/ZIP Co de Phone Number [facility] [place] [address] * (ABNORMAL) Non-Wheel Setter Final Report (09/16/2023 10:59 AM EDT) Diagnosis Discussion [id number] ? Location: 4T; EA09; A The signing pathologist has (i) examined the relevant preparation(s) for the specimen(s) and (ii) rendered or confirmed the diagnosis(es). . ? Non-Wheel Setter Final DIAGNOSIS Positive for Malignancy Electronically signed by: ?David EMERSON PhD, [place] Verified: ??09/20/2023 9:58 ?? Pathologist Performed at: ??-[facility] Dept. of Pathology, [place] [address] Respiratory Therapist Assistant: Brenda Garcia MD, FCAP, ??CLIA Certificate: [id number] DISCUSSION Metastatic squamous cell carcinoma. Cell block examined. See note. Note: See [id number] for immunohistochemical characterization. THIS RESULT REQUIRES PHYSICIAN/A.P.P. FOLLOW UP CLINICAL INFORMATION Specimen Source : Lymph node, station 7 (EBUS-guided FNA) Pertinent Clinical Data and Significant Therapy: EBUS Reason for procedure: h/o squamous cell lung cancer, lymphadenopathy, and pleural effusion Clinical Impression : Lymphadenopathy Pertinent Radiologic Findings ??: (not provided) Gross Description: Received ??in Formalin approximately 25 mL total volume of ?? cloudy, bloody fluid, with clots. Total Preparation: Cell Block 1.(A) 09/20/2023 9:58 AM EDT [facility] LYMPH NODE SPECIMEN / Unknown 09/16/2023 10:59 AM EDT 09/16/2023 10:59 AM EDT Bipin Moseley MD PATHOLOGY/CYTOL OGY ORDERABLES [facility] [place] [phone] * (ABNORMAL) Non-Wheel Setter Final Report (09/16/2023 10:59 AM EDT) Diagnosis Discussion [id number] ? Location: 4T; EA09; A The signing pathologist has (i) examined the relevant preparation(s) for the specimen(s) and (ii) rendered or confirmed the diagnosis(es). . ? Addendum ADDENDUM DISCUSSION PD-L1 Immunohistochemistry Study Tissue: ??Lymph node, 4R (EBUS-guided FNA) Diagnosis: ??Metastatic squamous cell carcinoma Tumor Proportion Score (TPS): ?? 5% Interpretation Table: PD-L1 assay (22C3 pharmDX) for Keytruda (pembrolizumab) Tumor Proportion Score (TPS): ? <1% ?PD-L1 Negative ? >=1% ? PD-L1 Expression ? >=50% ?PD-L1 High Expression Immunohistochemical assay was performed on paraffin-embedded tissue sections fixed in 10% neutral buffered formalin for 6-72 hours using the polymer system technique with appropriate controls. The assay was performed according to the supervisor toy assembly's instructions using Anti-PD-L1 (22C3, pharmDX) antibody. Electronically signed by: ?Jcarlos Marcelo MD Verified: ??10/30/2023 3:50 ?? Pathologist Performed at: ??-[facility] Dept. of Pathology, [place] [address] Respiratory Therapist Assistant: Brenda Garcia MD, KALI, ??CLIA Certificate: [id number] ? Non-Wheel Setter Final DIAGNOSIS Positive for Malignancy Electronically signed by: ?El Hernandez MD, PhD Verified: ??09/20/2023 9:56 ?? Pathologist Performed at: ??-[facility] Dept. of Pathology, [place] [address] Respiratory Therapist Assistant: Brenda Garcia MD, KALI, ??CLIA Certificate: [id number] DISCUSSION Metastatic squamous cell carcinoma. Cell block was examined. See note. Note: --- Immunohistochemistry Studies --- Interpretation: ? Immunohistochemical assays were performed (on paraffin-embedded cell block sections fixed in 10% neutral buffered formalin for 6-72 hours) using the polymer technique with appropriate controls. These immunohistochemical studies provide ancillary information and are used only in conjunction with standard diagnostic procedures. Block ? Antibody ?Result (Positive/Negative) A1 ? p40 ?positive A1 ? TTF1 ? negative THIS RESULT REQUIRES PHYSICIAN/A.P.P. FOLLOW UP . CLINICAL INFORMATION Specimen Source : Lymph node, 4R (EBUS-guided FNA) Pertinent Clinical Data and Significant Therapy: EBUS Reason for procedure: h/o squamous cell lung cancer, lymphadenopathy, and pleural effusion Clinical Impression : Lymphadenopathy Pertinent Radiologic Findings ??: (not provided) Gross Description: Received ??in Formalin approximately 20 mL total volume of ?? cloudy, bloody fluid, with clots. Total Preparation: Cell Block 1.(A) 10/30/2023 3:50 AM EDT [facility] LYMPH NODE SPECIMEN / Unknown 09/16/2023 10:59 AM EDT 09/16/2023 10:59 AM EDT Bipin Moseley MD PATHOLOGY/CYTOL OGY ORDERABLES Performing Organization Address [facility]/State/ZIP Co de Phone Number [facility] [place] [address] * Non-Wheel Setter Final Report (09/16/2023 10:59 AM EDT) Diagnosis Discussion [id number] ? Location: 4T; EA09; A The signing pathologist has (i) examined the relevant preparation(s) for the specimen(s) and (ii) rendered or confirmed the diagnosis(es). . ? Non-Wheel Setter Final DIAGNOSIS Negative for Malignancy Electronically signed by: ?David EMERSON PhD, [place] Verified: ??09/17/2023 15:36 ??Pathologist Performed at: ??-[facility] Dept. of Pathology, [place] [address] Respiratory Therapist Assistant: Brenda Garcia MD, FCAP, ??CLIA Certificate: [id number] DISCUSSION Lymph node, 4L (EBUS-guided FNA): Consistent with benign lymph node sampling. Cell block was examined. CLINICAL INFORMATION Specimen Source : Lymph node, 4L (EBUS-guided FNA) Pertinent Clinical Data and Significant Therapy: EBUS Reason for procedure: h/o squamous cell lung cancer, lymphadenopathy, and pleural effusion Clinical Impression : Lymphadenopathy Pertinent Radiologic Findings ??: (not provided) Gross Description: Received ??in Formalin approximately 25 mL total volume of ?? cloudy, bloody fluid, with clots. Total Preparation: Cell Block 1. 09/17/2023 3:36 PM EDT [facility] LYMPH NODE SPECIMEN / Unknown 09/16/2023 10:59 AM EDT 09/16/2023 10:59 AM EDT Bipin Moseley MD PATHOLOGY/CYTOL OGY ORDERABLES [facility] [place] [address] * Cytopathology Non-Gynecological (09/16/2023 10:59 AM EDT) AP Specimen 09/16/2023 10:5 9 AM EDT 09/16/2023 10:59 AM EDT Narrative [facility] - 09/16/2023 10:59 AM EDT Specimen requisition ordered. ??Separate Pathology report to follow Bipin Moseley MD PATHOLOGY/CYTOL OGY ORDERABLES [facility] [place] [address] * Cytopathology Non-Gynecological (09/16/2023 10:59 AM EDT) AP Specimen 09/16/2023 10:5 9 AM EDT 09/16/2023 10:59 AM EDT Narrative [facility] - 09/16/2023 10:59 AM EDT Specimen requisition ordered. ??Separate Pathology report to follow Bipin Moseley MD PATHOLOGY/CYTOL OGY ORDERABLES Performing Organization Address [facility]/ZIP Co de Phone Number [facility] [place] [address] * Cytopathology Non-Gynecological (09/16/2023 10:59 AM EDT) AP Specimen 09/16/2023 10:5 9 AM EDT 09/16/2023 10:59 AM EDT Narrative [facility] - 09/16/2023 10:59 AM EDT Specimen requisition ordered. ??Separate Pathology report to follow Bipin Moseley MD PATHOLOGY/CYTOL OGY ORDERABLES Performing Organization Address [facility]/ZIP Co de Phone Number [facility] [place] [address] * Specimen to Pathology (09/16/2023 10:59 AM EDT) AP Specimen 09/16/2023 10:5 9 AM EDT 09/16/2023 10:59 AM EDT Narrative [facility] - 09/16/2023 10:59 AM EDT Specimen requisition ordered. ??Separate Pathology report to follow Bipin Moseley MD PATHOLOGY/CYTOL OGY ORDERABLES Performing Organization Address [facility] [place] [address] * Body Fluid Culture, Aerobic Pleural Fluid (09/16/2023 10:38 AM EDT) Body Fluid Culture No growth [facility] Gram Stain Cytocentrifuge Gram Stain performed Neutrophils seen No microorganisms seen. [facility] Pleural Fluid 09/16/2023 10: 38 AM EDT 09/16/2023 11:51 AM EDT Comment:right Narrative Resulting Agency Comment Spec In Lab Bipin Moseley MD MICROBIOLOGY - GENERAL ORDERABLES [facility] [place] [address] * Non-Wheel Setter Final Report (09/16/2023 10:37 AM EDT) Diagnosis Discussion [id number] ? Location: 4T; EA09; A The signing pathologist has (i) examined the relevant preparation(s) for the specimen(s) and (ii) rendered or confirmed the diagnosis(es). . ? Non-Wheel Setter Final DIAGNOSIS Atypical Electronically signed by: ?Jonathan EMERSON, Wilberto Verified: ??09/20/2023 11:09 ??Pathologist Performed at: ??-[facility] Dept. of Pathology, [place] [address] Respiratory Therapist Assistant: Brenda Garcia MD, FCAP, ??CLIA Certificate: [id number] DISCUSSION Pleural fluid, right (thoracentesis): Less than optimal due to cellular degeneration. The specimen consists predominantly abundant necrotic debris, degenerated cells, and scattered degenerated atypical cells. See also the surgical specimen, [id number], and FNA specimens, [id number] and [id number]. Cell block was examined. Clinical and radiologic correlation is recommended. CLINICAL INFORMATION Specimen Source : Pleural fluid, right (thoracentesis) Pertinent Clinical Data and Significant Therapy: H/o lung squamous cell CA Clinical Impression : ? malignant Pertinent Radiologic Findings ??: (not provided) Gross Description: Received ??fresh, approximately 90 mL total volume of ?? cloudy, danielle fluid. Total Preparation: Liquid-Based Prep 1; Cell Block 1. 09/20/2023 11:09 AM EDT [facility] Pleural Fluid 09/16/2023 10: 37 AM EDT 09/16/2023 10:37 AM EDT Bipin Moseley MD PATHOLOGY/CYTOL OGY ORDERABLES Performing Organization Address City/[facility]/ZIP Co de Phone Number [facility] [place] [address] * Cytopathology Non-Gynecological (09/16/2023 10:37 AM EDT) AP Specimen 09/16/2023 10:3 7 AM EDT 09/16/2023 10:37 AM EDT Narrative [facility] - 09/16/2023 10:37 AM EDT Specimen requisition ordered. ??Separate Pathology report to follow Bipin Moseley MD PATHOLOGY/CYTOL OGY ORDERABLES Performing Organization Address City/[facility]/ZIP Co de Phone Number [facility] [place] [address] documented in this encounter Visit Diagnoses Diagnosis Malignant neoplasm of lung, unspecified laterality, unspecified part of lung Lymphadenopathy Enlargement of lymph nodes Pleural effusion Unspecified pleural effusion documented in this encounter Active and Recently Administered Medications Times are shown in EDT. Continuous Medication Order 09/14/2023 09/15/2023 09/16/2023 lactated ringers infusion (CANCELED) 100 mL/hr, Intravenous, CONTINUOUS, Starting on Aileen 09/16/23 at 1015, Until Aileen 09/16/23 at 1253, Endoscopy (Day of Procedure) 1028 (New Bag - Prov ider: Gopal Adam CRNA)1113 (Anesthesia Volume Adjustment - Provider: Gopal Adam CRNA) documented in this encounter Care Teams Aircraft Maintenance Instructor Relationship Specialty Start Date End Date Kadi Lane PA [address] [place] [id number] PCP - General Family Medicine 07/28/16 documented as of this encounter
--- OUTSIDE RECORDS SUMMARY | 2024-06-20 01:26 | XMS_ITS | Encounter Summary ---
Author Organization [facility] [place] [address] Care Team Providers Care Paint Roller Winder Name Role Phone Kadi Lane Primary Care Provider [phone] Encounter Details Date Type Department Care Team (Late st Contact Info) Description 08/17/2023 Ancillary Procedure Radiology Library at [facility] [place] [phone] Rafael Pope MD [facility] [place] [address] Social History Tobacco Use Types Packs/Day Years Used Date Smoking Tobacco: Former Cigarettes 2 32 1 696 - 1987 Smokeless Tobacco: Former Alcohol Use [...] 10:00 AM EST Office Visit Hematology/Oncology at [address] [phone] Lia Barber APRN [address] [place] [address] DR HEMATOLOGY AND ONCOLOGY [place], [place] [address] 06/20/2024 10:30 AM EST Infusion Hematology Oncology at [address] [phone] 07/04/2024 11:00 AM EST Office Visit Hematology/Oncology at [address] [phone] Lia Barber APRN [address] [place] [address] DR HEMATOLOGY AND ONCOLOGY [place], [place] [phone] 07/04/2024 11:30 AM EST Infusion Hematology Oncology at [address] [phone] documented as of this encounter Procedures Procedure Name Priority Date/Time Associated Diagnosis Comments FILM LIBRARY STORAGE ONLY CT CHEST Routine 08/17/2023 12:00 AM EDT documented in this encounter Results * Film Library- Storage Only CT Chest (08/17/2023 12:00 AM EDT) 08/19/2023 7:54 PM EDT Narrative RAD - 08/19/2023 7:54 PM EDT This exam is auto-finalizing. It's purpose is for storage only. Rafael Pope MD IMG FILM LIBRARY ORD ERABLES Performing Organization Address City/State/[facility] Co de Phone Number [place], [place] documented in this encounter Visit Diagnoses Not on filedocumented in this encounter Care Teams Paint Roller Winder Relationship Specialty Start Date End Date Kadi [address] PA [address] [place] [address] PCP - General Family Medicine 07/28/16 documented as of this encounter
--- OUTSIDE RECORDS SUMMARY | 2024-06-20 01:26 | XMS_ITS | Encounter Summary ---
Author Organization [facility] [place] [address] Care Team Providers Care Synchronous Motor Assembler Name Role Phone Kadi Lane Primary Care Provider [phone] Encounter Details Date Type Department Care Team (Late st Contact Info) Description 08/16/2023 Telephone Radiation Oncology at [address] [phone] Melvi Gamboa Social History Tobacco Use Types Packs/Day Years Used Date Smoking Tobacco: Former Cigarettes 2 32 1 146 - 1987 Smokeless Tobacco: Former Alcohol Use [...] encounter Miscellaneous Notes * Telephone Encounter - Melvi Gamboa - 08/16/2023 3:16 PM EDT Marco Antonio's called to change the time of his appt scheduled on 08/24 to 08/17, then she said that the weather is not going to be good so she changed the appt back to 08/25/23 at 1:30 documented in this encounter Plan of Treatment Upcoming Encounters Date Type Department Care Team (Late st Contact Info) Description 06/20/2024 10:00 AM EST Office Visit Hematology/Oncology at [address] [phone] Lia Barber APRN [address] [place] [address] DR HEM[place]Y [place] [address] 06/20/2024 10:30 AM EST Infusion Hematology Oncology at [address] [phone] 07/04/2024 11:00 AM EST Office Visit Hematology/Oncology at [address] [phone] Lia Barber, [address] HEMATOLOGY AND ONCOLOGY [place], [place] [address] 07/04/2024 11:30 AM EST Infusion Hematology Oncology at [address] [phone] documented as of this encounter Visit Diagnoses Not on filedocumented in this encounter Care Teams Synchronous Motor Assembler Relationship Specialty Start Date End Date Kadi Lane PA [facility] [place] [address] PCP - General Family Medicine 07/28/16 documented as of this encounter
--- OUTSIDE RECORDS SUMMARY | 2024-06-20 01:26 | XMS_ITS | Encounter Summary ---
[facility] [place] [address] Care Team Providers Care Municipal Bond Trader Name Role Phone Kadi Lane Primary Care Provider [phone] Reason for Visit * Reason Onset Date Comments Cough 08/13/2023 Encounter Details Date Type Department Care Team (Late st Contact Info) Description 08/13/2023 Telephone Radiation Oncology at [address] [phone] Vy Cagle, RN Cough Social [...] Telephone Encounter - Vy Cagle RN - 08/13/2023 4:18 PM EDT RN call to patients Bhavna. She reports that Marco Antonio is still coughing and having headaches but that he is managing. Dr. Pope is aware of this. I let her know that Dr. Pope would be ableto see Marco Antonio sooner, however he would like the CT scan to be done prior to his visit. Also that [facility] was planning to schedule the scan for the 2nd week in August. Will send message to covering RN for Wednesday to follow up with secretaries/[facility] about getting the scan done sooner. ----- Message from Katt English sent at 08/13/2023 3:11 PM EDT ----- Seeing as he just had a CT chest w/ on 07/18. They radiology team at [facility] plan to schedule him the August. ----- Message ----- From: Vy Cagle RN Sent: 08/13/2023 12:58 PM EDT To: [facility] Rad Onc Marietta Mohan secretaries, See below. Are we able to try to get the CT scan rescheduled for sooner? Thanks Vy ----- Message ----- From: Rafael Pope MD Sent: 08/13/2023 12:53 PM EDT To: Vy Cagle RN He can, but I'm not sure what I can say without a CT scan. Can we push the CT scan up a few weeks and have him see me afterwards? Thanks. ----- Message ----- From: Vy Cagle RN Sent: 08/13/2023 8:27 AM EDT To: Rafael Pope MD See below. They would like to see you sooner than 09/08/23 if possible. ----- Message ----- From: Katt English Sent: 08/13/2023 8:14 AM EDT To: [facility] Rad Onc Nurse Marco Antonio' called to see is they could get in sooner to see Dr. Pope. Marco Antonio is coughing so muchthat is giving him headaches and it is only on the right side. He is also having pain on the right side as well. Bhavna [phone] documented in this encounter Plan of Treatment Upcoming Encounters Date Type Department Care Team (Late st Contact Info) Description 06/20/2024 10:00 AM EST Office Visit Hematology/Oncology at [address] [phone] Lia Barber APRN [address] [place] [address] [place] [address] 06/20/2024 10:30 AM EST Infusion Hematology Oncology at [address] [phone] 07/04/2024 11:00 AM EST Office Visit Hematology/Oncology at [address] [phone] Lia Barber APRN [address] [place] [address] DR HEMATOLOGY AND ONCOLOGY [place], [place] [id number] 07/04/2024 11:30 AM EST Infusion Hematology Oncology at [address] [phone] documented as of this encounter Visit Diagnoses Not on filedocumented in this encounter Care Teams Municipal Bond Trader Relationship Specialty Start Date End Date Kadi Lane PA [address] [place] [address] PCP - General Family Medicine 07/28/16 documented as of this encounter
--- OUTSIDE RECORDS SUMMARY | 2024-06-20 01:26 | XMS_ITS | Encounter Summary ---
Author Organization [facility] [place] [address] Care Team Providers Care Treasurer Savings Bank Name Role Phone Kadi Lane Primary Care Provider [phone] Encounter Details Date Type Department Care Team (Late st Contact Info) Description 08/04/2023 10:00 AM EDT Office Visit Cardiology at [address] [phone] Isaac Ledbetter MD [facility] [place] [address] Chana Duran MD [address] [place] [id number] Coronary artery disease, unspecified vessel or lesion type, unspecified whether angina present, unspecified whether [place] or transplanted heart; Chest pain, unspecified type Social History Tobacco Use Types [...] Sign Reading Time Taken Comments Blood Pressure 145/68 08/04/2023 9:46 AM EDT Pulse 65 08/04/2023 9:46 AM EDT Temperature - - Respiratory Rate - - Oxygen Saturation 96% 08/04/2023 9:46 AM EDT Inhaled Oxygen Concentration - - Weight 65.3 kg (144 lb) 08/04/2023 9:46 AM EDT Height 168.9 cm (5' 6.5) 08/04/2023 9:46 AM EDT Body Mass Index 22.89 08/04/2023 9:46 AM EDT documented in this encounter Patient Instructions * Patient Instructions* Chana Duran MD - 08/04/2023 10:00 AM EDT Lipids next week, please! documented in this encounter Progress Notes * Chana Duran MD - 08/04/2023 10:00 AM EDT Images from the original note were not included. [facility] [address] 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 Galan) with two overloading stents in the mid-LAD. There was a residual 50% LM ostial stenosis (by IVUS had a MLA of 6.8 mm2 suggesting a non-hemodynamically significant stenosis) HISTORY OF PRESENT ILLNESS: Marco Antonio Combs Tyrese is a 77 y.o. gentleman who presents to re-establish care in Cardiology clinic. Presents approx 1 year after mid-LAD stenting. Cath with residual LM disease, non-hemodynamically significant by IVUS-guided MLA. No symptoms prior to his stress test or cardiac catheterization and none immediately post. Recent history notable for bronchitis & CT with moderate right pleural effusion & increasedmediastinal lymph nodes for which he was seen 07/22 by his Radiation Oncologist. At this time he reports he is active every day without limiting symptoms. He specifically denies chest pain and initially denied shortness of breath - omitting with more significant exertion. Does not believe this would have been present one year ago. Does endorse occasional palpitations, though itis not bothersome & always occurs with exercise. In terms of monitoring at home, does measure his home BP & notes it is typically 130/low. Never higher. PAST MEDICAL HISTORY: Past Medical History: Diagnosis Date Chronic obstructive pulmonary disease Gastroesophageal reflux disease Lung nodule Pulmonary asbestosis REVIEW OF SYSTEMS: Negative omitting above. FAMILY HISTORY: No family history of heart disease No other significant family history SOCIAL HISTORY: Lives with his [place], [place]; 56 years. Three children, one in [place], one in [place], and the other in [facility] Five grandchildren, all boys; two great grandchildren. 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 Two packs a day for approx 25+ years. Used to drink, quit approx 40 years ago. No other drugs. MEDICATIONS: Current Outpatient Medications Medication Sig Dispense Refill clarithromycin (Biaxin) 500 mg tablet Take 1 tablet by mouth 2 times daily. atorvastatin (Lipitor) 40 mg tablet TAKE 1 TABLET BY MOUTH DAILY 30 tablet 1 clopidogreL (Plavix) 75 mg tablet Take 1 tablet by mouth daily. 90 tablet 3 metoprolol succinate XL (Toprol-XL) 25 mg Tablet Sustained Release 24 hr Take 0.5 tablets by mouth daily. 90 tablet 3 nitroGLYcerin (Nitrostat) 0.4 mg Tablet, Sublingual Place 1 tablet under the tongue every 5 minutesas needed for Chest pain. 30 tablet 3 multivitamin (THERAGRAN) Tablet Take 1 tablet by mouth daily. aspirin EC 81 mg Tablet, Delayed Release (E.C.) Take 81 mg by mouth daily. omeprazole (PriLOSEC) 20 mg Capsule, Delayed Release(E.C.) Take 20 mg by mouth every morning. No current facility-administered medications for this visit. ALLERGIES: Patient has no known allergies. PHYSICAL EXAMINATION: Vital Signs: BP 145/68 Pulse 65 Ht 168.9 cm (5' 6.5) Wt 65.3 kg (144 lb) SpO2 96% BMI 22.89 kg/m?? Exam Details: General - No acute distress. Alert and oriented to person, place and time. Very pleasant, articulate. ENT - Mouth moist without lesions. Eyes - EOMI. Not jaundiced. Noninjected. Neck - No lymphadenopathy. No thyromegaly. No carotid bruit bilaterally. Lungs - Clear to auscultation bilaterally. Heart - RRR. Normal S1,S2. No audible murmurs, gallops or rubs. Extremities - Extremities are symmetric. No peripheral edema. 2+ bilateral PT pulses. DATA: Lab Results Component Value Date CHLPL 160 07/07/2022 HDL 34 07/07/2022 CHOLHDL 4.7 07/07/2022 TRIG 182 07/07/2022 LDLCHOL 90 07/07/2022 ASSESSMENT & PLAN: Marco Antonio Xiong is a 77 y.o. gentleman who presents for routine follow-up of coronary artery disease. #Coronary artery disease, status-post LAD stenting with a 50% residual ostial stenosis of the LM (non-flow limiting by IVUS) Non-limiting dyspnea, adamantly denies chest pain. Plan for aggressive medical management given residual LM disease. - Continue DAPT for now absent any bleeding complications in the context of residual LM disease. Bystrict guidelines and certainly if any planned surgeries, could transition to single antiplatelet therapy at one year post-intervention. Favor monotherapy with plavix. - Repeat lipid panel today, if LDL >70, can increase statin to 80 mg QD - Asked to check blood pressures vigilantly, can introduce antihypertensives PRN - Continue beta jorge therapy for now NB: if any planned surgical intervention for which Thoracic recommends perioperative stress testing, strongly recommend PET Nuclear stress testing given the added benefit of flow reserve quantification in the context of known ASCVD. Thank you for allowing us to participate in the care of this patient. The patient was seen and discussed with Dr. Ledbetter. Chana Duran MD Cardiovascular Medicine Fellow Pager [phone] * Isaac Ledbetter MD - 08/04/2023 10:00 AM EDT Images from the original note were not included. Cardiology Staff Addendum: This patient was seen today and personally interviewed and examined. Agree with documentation by Dr. Duran, which I have reviewed and independently confirmed. Briefly, this 77-year-old man is known to me from an outpatient evaluation about a year ago when I saw him with Dr. Nichole. He has non-small cell carcinoma of the lung and had a nuclear stress test which showed a large apical ischemic defect. His ejection fraction was 39%. He subsequently underwent heart catheterization in September of lastyear which showed a probably nonsignificant 50% or so left main stenosis and more high-grade disease in the LAD which was treated with 2 stents. He tells us that he is doing generally well. He has some mild exertional dyspnea. He is being evaluated by his thoracic surgeon for potential recurrence of his lung carcinoma. He is not experiencing any chest discomfort. His exam today is unremarkable and accurately documented by Dr. Duran. Plan is to continue his current medical treatment, check afasting lipid profile when he comes next week (may lead to an increase in his atorvastatin dosing, and otherwise to arrange for routine cardiology follow-up in 6 to 12 months Isaac Ledbetter MD, [facility], [facility] documented in this encounter Plan of Treatment Upcoming Encounters Date Type Department Care Team (Late st Contact Info) Description 06/20/2024 10:00 AM EST Office Visit Hematology/Oncology at [address] [phone] Lia Barber APRN [address] [place] [address] DR HEMATOLOGY AND ONCOLOGY [place], [place] [id number] 06/20/2024 10:30 AM EST Infusion Hematology Oncology at [address] [phone] 07/04/2024 11:00 AM EST Office Visit Hematology/Oncology at [address] [phone] Lia Barber APRN [address] [place] [address] DR HEMATOLOGY AND ONCOLOGY [place], [place] [id number] 07/04/2024 11:30 AM EST Infusion Hematology Oncology at [address] [phone] Scheduled Orders Name Type Priority Associated Diagnoses Orde r Schedule Lipid Panel (Reflex Direct LDL) Lab Routine Coronary artery disease, unspecified vessel or lesion type, unspecified whether angina present, unspecified whether [place] or transplanted heart Expected: 08/04/2023, Expires: 08/03/2024 documented as of this encounter Procedures Procedure Name Priority Date/Time Associated Diagnosis Comments EKG 12-LEAD Routine 08/04/2023 10:02 AM EDT Coronary artery disease, unspecified vessel or lesion type, unspecified whether angina present, unspecified whether [place] or transplanted heart documented in this encounter Results * EKG 12 Lead (08/04/2023 10:02 AM EDT) Ventricular rate 66 BPM MUSE SYSTEM Atrial Rate 66 BPM MUSE SYSTEM P-R Interval 130 ms MUSE SYSTEM QRS Duration 88 ms MUSE SYSTEM Q-T Interval 446 ms MUSE SYSTEM QTC Calculated (Bezet) 467 ms MUSE SYSTEM Calculated P [place] 59 degrees MUSE SYSTEM Calculated R [place] 54 degrees MUSE SYSTEM Calculated T [place] 63 degrees MUSE SYSTEM INTERPRETATION Normal sinus rhythm Minimal voltage criteria for LVH, may be normal variant ( Sokolow-Jiménez ) Borderline ECG When compared with ECG of 28-AUG-2022 15:01, ST no longer depressed in Anterior leads T wave inversion no longer evident in Anterior leads Confirmed by MD Nate, Jessica ([id number]) on 08/04/2023 8:50:39 PM MUSE SYSTEM 08/04/2023 10:0 2 AM EDT 08/04/2023 8:50 PM EDT Isaac Ledbetter MD ECG ORDERABLES MUSE SYSTEM documented in this encounter Visit Diagnoses Diagnosis Coronary artery disease, unspecified vessel or lesion type, unspecified whether angina present, unspecified whether [place] or transplanted heart Chest pain, unspecified type documented in this encounter Care Teams Treasurer Savings Bank Relationship Specialty Start Date End Date Kadi Lane PA [address] [place] [address] PCP - General Family Medicine 07/28/16 documented as of this encounter
--- OUTSIDE RECORDS SUMMARY | 2024-06-20 01:26 | XMS_ITS | Encounter Summary ---
[place] [address] Care Team Providers Care Resort Keeper Name Role Phone Kadi Lane Primary Care Provider [phone] Encounter Details Date Type Department Care Team (Late st Contact Info) Description 07/27/2023 Telephone Hematology [place] [address] Jana Vera Social History Tobacco [...] * Telephone Encounter - Jana Vera - 07/27/2023 2:29 PM EDT Procedure Prior Authorization Procedure/Cpt: 51220 Ct chest Rationale: C34.91 Health Plan: [employer] Authorizing Vendor: As above [phone] Service Order/Case ID: Call Ref #: [id number] Effective Date: Status: PA not required Rendering Facility: [facility] documented in this encounter Plan of Treatment Upcoming Encounters Date Type Department Care Team (Late st Contact Info) Description 06/20/2024 10:00 AM EST Office Visit Hematology/Oncology at [address] [phone] HEMATOLOGY AND ONCOLOGY [place], [place] [address] 06/20/2024 10:30 AM EST Infusion Hematology Oncology at [address] [phone] 07/04/2024 11:00 AM EST Office Visit Hematology/Oncology at [address] [phone] HEMATOLOGY AND ONCOLOGY [place], [place] [phone] 07/04/2024 11:30 AM EST Infusion Hematology Oncology at [address] [phone] documented as of this encounter Visit Diagnoses Not on filedocumented in this encounter Care Teams Resort Keeper Relationship Specialty Start Date End Date Kadi Lane PA [address] [place] [address] PCP - General Family Medicine 07/28/16 documented as of this encounter
--- OUTSIDE RECORDS SUMMARY | 2024-06-20 01:26 | XMS_ITS | Encounter Summary ---
[facility] Organization [facility] [place] [address] Care Team Providers Care Online Communications Manager Name Role Phone Kadi Lane Primary Care Provider [phone] Encounter Details Date Type Department Care Team (Latest Contact Info) Description 08/25/2023 Travel Social History Tobacco Use Types Packs/Day [...] AM EST Office Visit Hematology/Oncology at [address] [phone] Lia Barber [address] HEMATOLOGY AND ONCOLOGY [place], [place] [address] 06/20/2024 10:30 AM EST Infusion Hematology Oncology at [address] [phone] 07/04/2024 11:00 AM EST Office Visit Hematology/Oncology at [address] [phone] HEMATOLOGY AND ONCOLOGY [place], [place] [address] 07/04/2024 11:30 AM EST Infusion Hematology Oncology at [address] [phone] documented as of this encounter Visit Diagnoses Not on filedocumented in this encounter Care Teams Online Communications Manager Relationship Specialty Start Date End Date Kadi Lane PA [address] [place] [address] PCP - General Family Medicine 07/28/16 documented as of this encounter
--- OUTSIDE RECORDS SUMMARY | 2024-06-20 01:26 | XMS_ITS | Encounter Summary ---
Author Organization [facility] [place] [address] Care Team Providers Care Program Engineer Name Role Phone Kadi Lane Primary Care Provider [phone] Encounter Details Date Type Department Care Team (Late st Contact Info) Description 08/17/2023 Interpretation Only Radiology Library at [facility] [place] [phone] Rafael Pope MD [facility] [place] [address] Social History Tobacco Use Types Packs/Day Years Used Date Smoking Tobacco: Former Cigarettes 2 32 1 766 - 1987 Smokeless Tobacco: Former Alcohol Use [...] AM EST Office Visit Hematology/Oncology at [address] [phone] Lia Barber APRN [address] [place] [address] DR HEMATOLOGY AND ONCOLOGY [place], [place] [address] 06/20/2024 10:30 AM EST Infusion Hematology Oncology at [address] [phone] 07/04/2024 11:00 AM EST Office Visit Hematology/Oncology at [address] [phone] Lia Barber APRN [address] [place] [address] DR HEMATOLOGY AND ONCOLOGY [place], [place] [phone] 07/04/2024 11:30 AM EST Infusion Hematology Oncology at [address] [phone] documented as of this encounter Procedures Procedure [...] FILM LIBRARY ORD ERABLES Performing Organization Address City/State/[facility] Co de Phone Number [place], [place] documented in this encounter Visit Diagnoses Not on filedocumented in this encounter Care Teams Program Engineer Relationship Specialty Start Date End Date Kadi Lane PA [address] [place] [address] PCP - General Family Medicine 07/28/16 documented as of this encounter
--- OUTSIDE RECORDS SUMMARY | 2024-06-20 01:26 | XMS_ITS | Encounter Summary ---
Author Organization [facility] [place] [address] Care Team Providers Care Chemical Production Engineer Name Role Phone Kadi Lane Primary Care Provider [phone] Encounter Details Date Type Department Care Team (Late st Contact Info) Description 07/19/2023 9:15 AM EST Ancillary Procedure Radiology Library at [facility] [place] [phone] Rafael Pope MD [facility] [place] [address] Social History Tobacco Use Types Packs/Day Years Used Date Smoking Tobacco: Former Cigarettes 2 32 1 726 - 1987 Smokeless Tobacco: Former Alcohol Use [...] 10:00 AM EST Office Visit Hematology/Oncology at [address] [phone] Lia Barber APRN [address] [place] [address] DR HEMATOLOGY AND ONCOLOGY [place], [place] [phone] 06/20/2024 10:30 AM EST Infusion Hematology Oncology at [address] [phone] 07/04/2024 11:00 AM EST Office Visit Hematology/Oncology at [address] [phone] Lia Barber APRN [address] [place] [address] DR HEMATOLOGY AND ONCOLOGY [place], [place] [address] 07/04/2024 11:30 AM EST Infusion Hematology Oncology at [address] [phone] documented as of this encounter Procedures Procedure Name Priority Date/Time Associated Diagnosis Comments FILM LIBRARY STORAGE ONLY CT CHEST Routine 07/19/2023 9:15 AM EST documented in this encounter Results * Film Library- Storage Only CT Chest (07/19/2023 9:15 AM EST) 07/21/2023 9:34 AM EST Narrative SATNAM - 07/21/2023 9:34 AM EST This exam is auto-finalizing. It's purpose is for storage only. Rafael Pope MD IMG FILM LIBRARY ORD ERABLES [facility] [place] documented in this encounter Visit Diagnoses Not on filedocumented in this encounter Care Teams Chemical Production Engineer Relationship Specialty Start Date End Date Kadi Lane PA [address] [place] [address] PCP - General Family Medicine 07/28/16 documented as of this encounter
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
--- OUTSIDE RECORDS SUMMARY | 2024-06-20 01:26 | XMS_ITS | Encounter Summary ---
[place] [address] Care Team Providers Care Roll Setter Name Role Phone Kadi Lane Primary Care Provider [phone] Reason for Visit * Reason Comments Medication Refill Encounter Details Date Type Department Care Team (Late st Contact Info) Description 06/23/2023 Refill Cardiology at [address] [phone] Isaac Ledbetter MD [facility] [place] [address] Medication Refill Social History Tobacco Use Types Packs/Day Years Used Date Smoking Tobacco: Former Cigarettes 2 32 1 566 - 1987 Smokeless Tobacco: Former Alcohol Use [...] a care home (including now)? No 08/14/2022 DH IPV [...] AM EST Office Visit Hematology/Oncology at [address] [phone] Lia Barber APRN [address] [place] [address] DR [place]Y [place] [address] 06/20/2024 10:30 AM EST Infusion Hematology Oncology at [address] [phone] 07/04/2024 11:00 AM EST Office Visit Hematology/Oncology at [address] [phone] Lia Barber APRN [address] [place] [address] DR HEMATOLOGY AND ONCOLOGY [place], [place] [phone] 07/04/2024 11:30 AM EST Infusion Hematology Oncology at [address] [phone] documented as of this encounter Visit Diagnoses Diagnosis Chest pain, unspecified type documented in this encounter Care Teams Roll Setter Relationship Specialty Start Date End Date Kadi Lane [place] [address] PCP - General Family Medicine 07/28/16 documented as of this encounter
--- OUTSIDE RECORDS SUMMARY | 2024-06-20 01:26 | XMS_ITS | Encounter Summary ---
Author Organization [facility] [place] [address] Care Team Providers Care Elevator Supervisor Name Role Phone Kadi Lane Primary Care Provider [phone] Encounter Details Date Type Department Care Team (Late st Contact Info) Description 09/01/2023 [place] [phone] Jeannie Washburn MD [facility] [place] [address] Social History Tobacco Use Types Packs/Day Years Used Date Smoking Tobacco: Former Cigarettes 2 32 1 006 - 1987 Smokeless Tobacco: Former Alcohol Use [...] encounter Miscellaneous Notes * Telephone Encounter - Jeannie Washburn MD - 09/01/2023 6:21 PM EDT Spoke with Mr. Xiong and his wive via telephone. Updated them about the discussion with Dr. Pope favoring additional biopsies. Plans for bronchoscopy and thora and Mr. Xiong is in agreement.Will have scheduling reach out to arrange with him. documented in this encounter Plan of Treatment Upcoming Encounters Date Type Department Care Team (Late st Contact Info) Description 06/20/2024 10:00 AM EST Office Visit Hematology/Oncology at [address] [phone] Lia Barber, [address] HEMATOLOGY AND ONCOLOGY [place], [place] [address] 06/20/2024 10:30 AM EST Infusion Hematology Oncology at [address] [phone] 07/04/2024 11:00 AM EST Office Visit Hematology/Oncology at [address] [phone] HEMATOLOGY AND ONCOLOGY [place], [place] [phone] 07/04/2024 11:30 AM EST Infusion Hematology Oncology at [address] [phone] documented as of this encounter Visit Diagnoses Not on filedocumented in this encounter Care Teams Elevator Supervisor Relationship Specialty Start Date End Date Kadi Lane PA [address] [place] [address] PCP - General Family Medicine 07/28/16 documented as of this encounter
--- OUTSIDE RECORDS SUMMARY | 2024-06-20 01:26 | XMS_ITS | Encounter Summary ---
[place] [address] Care Team Providers Care Typewriter Ribbon Winder Name Role Phone Kadi Lane Primary Care Provider [phone] Reason for Visit * Reason Comments Medication Refill Encounter Details Date Type Department Care Team (Late st Contact Info) Description 08/04/2023 Refill Cardiology at [address] [phone] Isaac Ledbetter MD [facility] [address] Medication Refill Social History Tobacco Use Types Packs/Day Years Used Date Smoking Tobacco: Former Cigarettes 2 32 1 176 - 1987 Smokeless Tobacco: Former Alcohol Use [...] AM EST Office Visit Hematology/Oncology at [address] [phone] Lia Barber APRN [address] [place] [address] DR HEMATOLOGY [place] [address] 06/20/2024 10:30 AM EST Infusion Hematology Oncology at [address] [phone] 07/04/2024 11:00 AM EST Office Visit Hematology/Oncology at [address] [phone] Lia Barber APRN [address] [place] [address] DR HEMATOLOGY AND ONCOLOGY [place], [place] [phone] 07/04/2024 11:30 AM EST Infusion Hematology Oncology at [address] [phone] documented as of this encounter Visit Diagnoses Diagnosis Chest pain, unspecified type documented in this encounter Care Teams Typewriter Ribbon Winder Relationship Specialty Start Date End Date Kadi [place] [address] PCP - General Family Medicine 07/28/16 documented as of this encounter
--- OUTSIDE RECORDS SUMMARY | 2024-06-20 01:26 | XMS_ITS | Encounter Summary ---
Author Organization [facility] [place] [address] Care Team Providers Care Applied Anthropologist Name Role Phone Kadi Lane Primary Care Provider [phone] Encounter Details Date Type Department Care Team (Late st Contact Info) Description 08/26/2023 [place] [phone] Suma Tran Social History Tobacco Use Types Packs/Day Years [...] AM EST Office Visit Hematology/Oncology at [address] [phone] [address]ia Barber [address] HEMATOLOGY AND ONCOLOGY [place], [place] [address] 06/20/2024 10:30 AM EST Infusion Hematology Oncology at [address] [phone] 07/04/2024 11:00 AM EST Office Visit Hematology/Oncology at [address] [phone] Lia Barber [address] [place] [address] 07/04/2024 11:30 AM EST Infusion Hematology Oncology at [address] [phone] documented as of this encounter Visit Diagnoses Not on filedocumented in this encounter Care Teams Applied Anthropologist Relationship Specialty Start Date End Date Kadi Lane PA [facility] [place] [address] PCP - General Family Medicine 07/28/16 documented as of this encounter
--- OUTSIDE RECORDS SUMMARY | 2024-06-20 01:26 | XMS_ITS | Encounter Summary ---
[place] [address] Care Team Providers Care Quality Process Auditor Name Role Phone Kadi Lane Primary Care Provider [phone] Reason for Visit * Reason Onset Date Comments Other 09/15/2023 Bronchoscopy Encounter Details Date Type Department Care Team (Late st Contact Info) Description 09/15/2023 [place] [phone] Flavia Pike RN Other (Bronchoscopy) Social History Tobacco Use Types Packs/Day Years [...] in a alf (including now)? No 08/14/2022 IPV Inpatient Questions Answer Date Recorded Does [...] encounter Miscellaneous Notes * Telephone Encounter - Flavia Pike RN - 09/15/2023 8:45 AM EDT Made scheduled call to review instructions prior to interventional pulmonary procedure: [x] Informed patient of date, time, and location of procedure or pre-procedure imaging or tests as applicable. Scheduled Bronchoscopy with EBUS and Thoracentesis on 09/16/2023 at 10 AM in [facility] under [place] with Dr Fide Nelson. Arrive at 4T at 9 AM to check in. [x] Informed patient they must have driver courier who accompanies them into and to drive pt home safelyafter the procedure. Bhavna spouse -Masking is now optional if you do not have COVID/ pulmonary symptoms but masks will continue to still be available at all entrance locations and throughout the building. [x] Reviewed home oxygen or ventilation use: [x] Patient not on home ventilator or oxygen [] Patient is on home oxygen and/or ventilator (document amount and type of oxygen device): [] Patient confirms they will bring necessary supplies for transport to and from [] Patient identifies this potential supply issue: Will document and contact their DME for assistance. [x] Medication review: Confirm any new medications since last seen in Pulmonary. Only need to review blood thinners, insulin and rescue inhaler. [] Patient has rescue inhaler (e.g., albuterol) and will bring to procedure [x] Anticoagulation and anti-platelet therapy reviewed: [] No anticoagulation or anti-platelet therapy [x] Patient will hold anticoagulation or anti-platelet therapy as directed (See IP job aid for standard instructions or MD note for special instructions) pt confirms stopping the Plavix on 09/11/2023. [x] Insulin use reviewed: [x] No insulin therapy [] Patient taking insulin: Instructed to take half of long acting dose, and NOT take short acting dose morning of procedure [x] Patient understands they are to take all other medications the day of procedure unless specifically addressed 5. [x] NPO instructions reviewed with patient: -Do not have anything to eat/ no solid food after midnight tonight. -Pt permitted to have any amount of clear liquids up to two hours before scheduled procedure. -Clear liquid allowed are: water, cheikh nirmal, apple juice, black coffee or tea. Sugar or sugar substitutes are fine in coffee or tea, however pt not permitted to have any dairy products (or dairy substitutes) after midnight- No milk, cream, or creamers. -Okay to take small sips of water to take allowed medications within 2 hours of the procedure. -Failure to abide to these dietary instructions may result in cancellation of procedure. 6. [x] COVID screening [x] Patient denies current symptoms or exposures as per most recent COVID Screening Job Aid 7. Other questions addressed during this call: N/A CRUZ Duncan, RN Pulmonary [facility] Pager: [phone] documented in this encounter Plan of Treatment Upcoming Encounters Date Type Department Care Team (Late st Contact Info) Description 06/20/2024 10:00 AM EST Office Visit Hematology/Oncology at [address] [phone] HEMATOLOGY AND ONCOLOGY [place], [place] [phone] 06/20/2024 10:30 AM EST Infusion Hematology Oncology at [address] [phone] 07/04/2024 11:00 AM EST Office Visit Hematology/Oncology at [address] [phone] HEMATOLOGY AND ONCOLOGY [place], [place] [phone] 07/04/2024 11:30 AM EST Infusion Hematology Oncology at [address] [phone] documented as of this encounter Visit Diagnoses Not on filedocumented in this encounter Care Teams Quality Process Auditor Relationship Specialty Start Date End Date Kadi Lane PA [address] [place] [address] PCP - General Family Medicine 07/28/16 documented as of this encounter
--- OUTSIDE RECORDS SUMMARY | 2024-06-20 01:26 | XMS_ITS | Encounter Summary ---
Author [facility] [place] [address] Care Team Providers Care Freezer Machine Operator Name Role Phone Kadi Lane Primary Care Provider [phone] Encounter Details Date Type Department Care Team (Latest Contact Info) Description 09/01/2023 Travel Social History Tobacco Use Types Packs/Day Years Used Date Smoking Tobacco: Former Cigarettes 2 32 1 956 - 1356 Smokeless Tobacco: Former Alcohol Use Standard Drinks/Week [...] AM EST Office Visit Hematology/Oncology at [address] [phone] Lia Barber [address] HEMATOLOGY AND ONCOLOGY [place], [place] [address] 06/20/2024 10:30 AM EST Infusion Hematology Oncology at [address] [phone] 07/04/2024 11:00 AM EST Office Visit Hematology/Oncology at [address] [phone] HEMATOLOGY AND ONCOLOGY [place], [place] [address] 07/04/2024 11:30 AM EST Infusion Hematology Oncology at [address] [phone] documented as of this encounter Visit Diagnoses Not on filedocumented in this encounter Care Teams Freezer Machine Operator Relationship Specialty Start Date End Date Kadi Lane PA [address] [place] [address] PCP - General Family Medicine 07/28/16 documented as of this encounter
--- OUTSIDE RECORDS SUMMARY | 2024-06-20 01:26 | XMS_ITS | Encounter Summary ---
Author Organization [facility] [address] Care Team Providers Care Retail Grocer Name Role Phone Kadi Lane Primary Care Provider Encounter Details Date Type Department Care Team (Latest Contact Info) Description 07/21/2023 Travel Social History Tobacco Use Types Packs/Day [...] AM EST Office Visit Hematology/Oncology at [address] [phone] Lia Barber [address] HEMATOLOGY AND ONCOLOGY [place], [place] [address] 06/20/2024 10:30 AM EST Infusion Hematology Oncology at [address] [phone] 07/04/2024 11:00 AM EST Office Visit Hematology/Oncology at [address] [phone] [address] HEMATOLOGY AND ONCOLOGY [place], [place] [address] 07/04/2024 11:30 AM EST Infusion Hematology Oncology at [address] [phone] documented as of this encounter Visit Diagnoses Not on filedocumented in this encounter Care Teams Retail Grocer Relationship Specialty Start Date End Date Kadi Lane PA [address] [place] [address] PCP - General Family Medicine 07/28/16 documented as of this encounter
--- OUTSIDE RECORDS SUMMARY | 2024-06-20 01:26 | XMS_ITS | Encounter Summary ---
[place] [address] Care Team Providers Care Linux Network Administrator Name Role Phone Kadi Lane Primary Care Provider [phone] Reason for Referral * Consultation (Routine) - Closed Specialty Diagnoses / Procedures Referred By Contac t Referred To Contact Gastroenterology Diagnoses Cough, persistent w/in 2 WEEKS -cough. T Chest wIth dilated esophagus and retained contents. Eval for treatment and managment.- motiltiy team Jeannie Washburn MD [facility] [place] [address] [facility] [place]astro [address] [place] [address] Referral ID Status Reason Start Date Expiration Date V isits Requested Visits Authorized [id number] Closed Consult, Test & Treat 09/01/2023 08/31/2024 1 1 Reason for Visit * Consultation (Routine) - Closed Specialty Diagnoses / Procedures Referred By Contac t Referred To Contact Pulmonology Diagnoses Chronic cough Lung cancer Self mail [facility] Pulmonology [address] [place] [address] Referral ID Status Reason Start Date Expiration Date Visits Re quested Visits Authorized [id number] Closed 08/26/2023 08/25/2024 1 1 Encounter Details Date Type Department Care Team (Late st Contact Info) Description 09/01/2023 11:20 AM EDT Office [place] [phone] Bipin Moseley MD [facility] [place] [address] Cough, persistent; Primary malignant neoplasm of right lower lobe of lung; Mediastinal adenopathy; Pleural effusion, right Social History Tobacco Use Types Packs/Day Years Used Date Smoking Tobacco: Former Cigarettes 2 32 1 686 - 1987 Smokeless Tobacco: Former Tobacco Cessation:Counseling Given: Not Answered Alcohol Use [...] Sign Reading Time Taken Comments Blood Pressure 142/63 09/01/2023 11:06 AM EDT Pulse 65 09/01/2023 11:06 AM EDT Temperature 35.6 ??C (96.1 ??F) 09/01/2023 11:06 AM E DT Respiratory Rate 16 09/01/2023 11:06 AM EDT Oxygen Saturation 98% 09/01/2023 11:06 AM EDT Inhaled Oxygen Concentration - - Weight 64 kg (141 lb) 09/01/2023 11:06 AM EDT Height 168.9 cm (5' 6.5) 09/01/2023 11:06 AM ED T Body Mass Index 22.42 09/01/2023 11:06 AM EDT documented in this encounter Progress Notes * Jeannie Washburn MD - 09/01/2023 11:20 AM [...] Spec Type BF Pleural, Right Color BF Katy Appearance BF Cloudy WBC BF Ct <=499 [...] MD Pulmonary and Critical Care PGY-4 Pager [phone] 09/01/2023 12:04 PM Attending attestation: Mr. Marco [...] Moseley MD Pulmonary and Critical Care Medicine [address] Room [address] [place] [address] Phone Pul Generic: [phone] [email or web address] Pager #[phone] documented in this encounter Plan of Treatment Upcoming Encounters Date Type Department Care Team (Late st Contact Info) Description 06/20/2024 10:00 AM EST Office Visit Hematology/Oncology at [address] [phone] [place] [address] 06/20/2024 10:30 AM EST Infusion Hematology Oncology at [address] [phone] 07/04/2024 11:00 AM EST Office Visit Hematology/Oncology at [address] [phone] [address] [place] [address] 07/04/2024 11:30 AM EST Infusion Hematology Oncology at [address] [phone] Scheduled Referrals Name Type Priority Associated Diagnoses Order Schedule Referral to Gastroenterology Outpatient Referral Routine Cough, persistent Ordered: 09/01/2023 documented as of this encounter Visit Diagnoses Diagnosis Cough, persistent Cough Primary malignant neoplasm of right lower lobe of lung Malignant neoplasm of lower lobe, bronchus, or lung Mediastinal adenopathy Enlargement of lymph nodes Pleural effusion, right Unspecified pleural effusion documented in this encounter Care Teams Linux Network Administrator Relationship Specialty Start Date End Date Kadi Lane PA [address] [place] [address] PCP - General Family Medicine 07/28/16 documented as of this encounter
--- OUTSIDE RECORDS SUMMARY | 2024-06-20 01:26 | XMS_ITS | Encounter Summary ---
[place] [address] Care Team Providers Care Nursing Project Coordinator Name Role Phone Kadi Lane Primary Care Provider Reason for Visit * Auth/Cert (Routine) Specialty Diagnoses / Procedures Referred By Contac t Referred To Contact Diagnoses Malignant neoplasm of lung, unspecified laterality, unspecified part of lung Lymphadenopathy Pleural effusion Lung cancer, Lymphadenopathy and Pleural effusion /bronch with EBUS and Thoracentesis / ga/ Fide Nelson Procedures [facility] EBUS GUIDED SAMPL 3/> NODE STATION/STRUX PRO THORACENTESIS NEEDLE/CATH PLEURA W IMAGING BRONCH, W ENDOBRONCHIAL ULTRASOUND (EBUS) GUIDED SAMPLING, 3+ NODES (WRVU 4.96) THORACENTESIS, NEEDLE OR CATHETER; WITH IMAGE GUIDANCE (WRVU 2.27) Bipin Moseley MD [facility] [place] [address] [facility] Referral ID Status Reason Start Date Expiration Date Visits Re quested Visits Authorized [id number] 1 1 Encounter Details Date Type Department Care Team (Latest Contact Info) Description 09/16/2023 9:25 AM EDT - 09/16/2023 1:04 PM EDT Hospital Encounter Gastroenterology [place] [facility] [address] Bipin Moseley MD [facility] [place] [address] Discharge Disposition: Home Social History Tobacco Use [...] health care facility (including now)? No 08/14/2022 [facility] Inpatient Questions Answer Date Recorded Does [...] Sign Reading Time Taken Comments Blood Pressure 133/73 09/16/2023 12:40 PM EDT Pulse 75 09/16/2023 9:51 AM EDT Temperature 36.3 ??C (97.3 ??F) 09/16/2023 9:51 AM ED T Respiratory Rate 15 09/16/2023 12:10 PM EDT Oxygen Saturation 93% 09/16/2023 12:50 PM EDT Inhaled Oxygen Concentration - - [...] your doctor if you can take an zcsp-bwt-uvkcypl medicine. If you think your pain medicine [...] occurs, please contact your Doctor. Please call [phone] before 8pm Mon-Fri with problems, questions or concerns. If you call after 8pm or on weekends, call the Hospital at [phone] and ask to speak to the Building Materials Sales Attendant material disposition inspector and the swiss type screw machine operator will contact that person for you. [...] any problems. Where can you learn more? [facility] View your After Visit Summary and more online at [email or web address] If you would like to provide feedback about your hospital experience, please call the Office of Patient and Family Relations at . If you have received this After Visit Summary in error, please immediately return it in person to the department, or notify the [facility] Privacy Office by calling toll free at between the hours of 8AM and 5PM to arrange for our retrieval of the documents at no cost to you. Content Version: 12.2 ?? [phone] [employer]. Care instructions adapted under license by [facility]. If you have questions about a medical condition or this instruction, always ask your healthcare professional. [employer] disclaims any warranty or liability for your [...] Section of Pulmonary & Critical Care Pager: [phone] Source Note - Jeannie Washburn MD - [...] Spec Type BF Pleural, Right Color BF [place] Appearance BF Cloudy WBC BF Ct <=499 [...] MD Pulmonary and Critical Care PGY-4 Pager [phone] 09/01/2023 12:04 PM Attending attestation: Mr. Marco [...] Moseley MD Pulmonary and Critical Care Medicine [address] Room [address] [place] [address] Phone Pul Generic: [phone] [email or web address] Pager #[phone] documented in this encounter Miscellaneous Notes * [...] and side (laterality). PROCEDURE IN DETAIL: [facility] [employer] EBUS bronchoscope was inserted into the LMA. [...] Section of Pulmonary and Critical Care Medicine [address] Room [address] [place] [address] Phone [facility] Generic: [phone] [email or web address] Pager #[phone] * Op Note - Bipin Moseley MD [...] 10:00 AM EST Office Visit Hematology/Oncology at [address] [phone] Lia Barber APRN [address] [place] [address] HEMATOLOGY AND ONCOLOGY [place], [place] [id number] 06/20/2024 10:30 AM EST Infusion Hematology Oncology at [address] [phone] 07/04/2024 11:00 AM EST Office Visit Hematology/Oncology at [address] [phone] Lia Barber APRN [address] [place] [address] DR HEMATOLOGY AND ONCOLOGY [place], [place] [id number] 07/04/2024 11:30 AM EST Infusion Hematology Oncology at [address] [phone] documented as of this encounter Procedures Procedure [...] BODY FLUID Routine 09/16/2023 11:10 AM EDT NON-REVENUE SPECIALIST FINAL REPORT Routine 09/16/2023 10:59 AM EDT NON-REVENUE SPECIALIST FINAL REPORT Routine 09/16/2023 10:59 AM EDT NON-REVENUE SPECIALIST FINAL REPORT Routine 09/16/2023 10:59 AM EDT SURGICAL PATHOLOGY REPORT Routine 09/16/2023 10:59 AM EDT SPECIMEN TO PATHOLOGY Routine 09/16/2023 10:59 AM EDT CYTOPATHOLOGY NON-GYNECOLOGICAL Routine 09/16/2023 10:59 AM EDT CYTOPATHOLOGY NON-GYNECOLOGICAL Routine 09/16/2023 10:59 AM EDT CYTOPATHOLOGY NON-GYNECOLOGICAL Routine 09/16/2023 10:59 AM EDT BODY FLUID CULTURE, AEROBIC Routine 09/16/2023 10:38 AM EDT NON-REVENUE SPECIALIST FINAL REPORT Routine 09/16/2023 10:37 AM EDT CYTOPATHOLOGY NON-GYNECOLOGICAL Routine 09/16/2023 10:37 AM EDT Bronchoscopy, Excis Lesn ([id number]) 09/16/2023 10:28 AM EDT Malignant neoplasm of lung, unspecified laterality, unspecified part of lung Lymphadenopathy Pleural effusion Thoracentesis Needle/Cath Pleura W Imaging ([id number]) 09/16/2023 10:28 AM EDT Malignant neoplasm of lung, unspecified laterality, unspecified part of lung Lymphadenopathy Pleural effusion [facility] [place] Guided Sampl 3/> Node Station/Strux ([id number]) 09/16/2023 10:28 AM EDT Malignant neoplasm of lung, unspecified laterality, unspecified part of lung Lymphadenopathy Pleural effusion documented in this encounter Results * XR Chest One View (09/16/2023 11:54 AM EDT) WORKSTATION ID [id number] RAD Anatomical Region Laterality Modality Chest N/A Digital Radiogra phy Impressions 09/16/2023 12:24 PM EDT No pneumothorax, decreasing RIGHT pleural fluid Thank you for letting us participate in the care of this patient. ??If you are a health care provider and have any questions regarding this report, please contact the number below. ??For patients who have questions please contact the health hearing care practitioner that requested your imaging first. ? Narrative 09/16/2023 12:24 PM EDT EXAMINATION: XR [...] patients who have questions please contactthe health hearing care practitioner that requested your imaging first. Bipin Moseley MD IMG DX ORDERABL ES * pH Body Fluid Pleural, Right (09/16/2023 11:10 AM EDT) pH, Fluid 7.04 [facility] Comment: Reference intervals are unavailable for this test in body fluids. Comparison of this result with the concentration in blood, serum, or plasma is recommended. This test has not been cleared by the [place] FDA. Performance characteristics of this test for the analysis of body fluids were determined by [facility] in accordance with CLIA requirements. This laboratory is qualified under CLIA to perform high-complexity testing. pH, Fld Type Pleural, Right [facility] Pleural, Right 09/16/2023 11 :10 AM EDT 09/16/2023 11:35 AM EDT Narrative Resulting Agency Comment Spec In Lab Bipin Moseley MD BODY FLUIDS AND STOOLS ORDERABLES Performing Organization Address City/[facility]/ZIP Co de Phone Number [facility] [place] [address] * Protein Level Body Fluid Pleural, Right (09/16/2023 11:10 AM EDT) Protein, Fluid 4.9 g/dL [facility] Comment: Reference intervals are unavailable for this test in body fluids. Comparison of this result with the concentration in blood, serum, or plasma is recommended. This test has not been cleared by the US FDA. Performance characteristics of this test for the analysis of body fluids were determined by [facility] in accordance with CLIA requirements. This laboratory is qualified under CLIA to perform high-complexity testing. Prot, Fld Type Pleural, Right [facility] Pleural, Right 09/16/2023 11 :10 AM EDT 09/16/2023 11:35 AM EDT Narrative Resulting Agency Comment Spec In Lab Bipin Moseley MD BODY FLUIDS AND STOOLS ORDERABLES Performing Organization Address City/[facility]/ZIP Co de Phone Number [facility] [place] [address] * Lactate Dehydrogenase Body Fluid Pleural, Right (09/16/2023 11:10 AM EDT) Lactate Dehydrogenase, Fluid >2,500 unit/L [facility] Comment: Reference intervals are unavailable for this test in body fluids. Comparison of this result with the concentration in blood, serum, or plasma is recommended. This test has not been cleared by the [place] FDA. Performance characteristics of this test for the analysis of body fluids were determined by [facility] in accordance with CLIA requirements. This laboratory is qualified under CLIA to perform high-complexity testing. LDH, Fld Type Pleural, Right [facility] Pleural, Right 09/16/2023 11 :10 AM EDT 09/16/2023 11:35 AM EDT Narrative Resulting Agency Comment Spec In Lab Bipin Moseley MD BODY FLUIDS AND STOOLS ORDERABLES Performing Organization Address City/[facility]/ZIP Co de Phone Number [facility] [place] [address] * Glucose Level Body Fluid Pleural, Right (09/16/2023 11:10 AM EDT) Glucose, Fluid 22 mg/dL [facility] Comment: Reference intervals are unavailable for this test in body fluids. Comparison of this result with the concentration in blood, serum, or plasma is recommended. This test has not been cleared by the [place] FDA. Performance characteristics of this test for the analysis of body fluids were determined by [facility] in accordance with CLIA requirements. This laboratory is qualified under CLIA to perform high-complexity testing. Gluc, Fld Type Pleural, Right [facility] Pleural, Right 09/16/2023 11 :10 AM EDT 09/16/2023 11:35 AM EDT Narrative Resulting Agency Comment Spec In Lab Bipin Moseley MD BODY FLUIDS AND STOOLS ORDERABLES [facility] [place] [address] * Cholesterol Level Body Fluid Pleural, Right (09/16/2023 11:10 AM EDT) Cholesterol, Fluid 88 mg/dL [facility] Comment: Reference intervals are unavailable for this test in body fluids. Comparison of this result with the concentration in blood, serum, or plasma is recommended. This test has not been cleared by the [place] FDA. Performance characteristics of this test for the analysis of body fluids were determined by [facility] in accordance with CLIA requirements. This laboratory is qualified under CLIA to perform high-complexity testing. Chol, BF Type Pleural, Right [facility] Pleural, Right 09/16/2023 11 :10 AM EDT 09/16/2023 11:35 AM EDT Narrative Resulting Agency Comment Spec In Lab Bipin Moseley MD BODY FLUIDS AND STOOLS ORDERABLES [facility] [place] [address] * Surgical Pathology Report (09/16/2023 10:59 AM EDT) Final Diagnosis [id number] ? Location: 4T; EA09; A The signing pathologist has (i) examined the relevant preparation(s) for the specimen(s) and (ii) rendered or confirmed the diagnosis(es). . ?Surgical Pathology DIAGNOSIS A - Main rai, biopsy: - Squamous cell carcinoma. Electronically signed by: ?Shahzad Vazquez MD Verified: ??09/20/2023 18:32 ??Pathologist Performed at: ??-[facility] Dept. of Pathology, [place] [address] Special Weapons Unit Officer: Brenda Garcia MD, AP, ??CLIA Certificate: [id number] ADDITIONAL STUDIES Immunohistochemistry Studies: Formalin-fixed, paraffin-embedded tissue [...] labeled A1. ??sns 09/20/2023 6:32 PM EDT [facility] LUNG STRUCTURE / Unknown 09/16/2023 10:59 AM EDT 09/16/2023 10:59 AM EDT Bipin Moseley MD PATHOLOGY/CYTOL OGY ORDERABLES [facility] [place] [address] * (ABNORMAL) Non-Social Work Assistant Final Report (09/16/2023 10:59 AM EDT) Diagnosis Discussion [id number] ? Location: 4T; EA09; A The signing pathologist has (i) examined the relevant preparation(s) for the specimen(s) and (ii) rendered or confirmed the diagnosis(es). . ? Non-Social Work Assistant Final DIAGNOSIS Positive for Malignancy Electronically signed by: ?David EMERSON PhD, [place] Verified: ??09/20/2023 9:58 ?? Pathologist Performed at: ??-[facility] Dept. of Pathology, [place] [address] Special Weapons Unit Officer: Brenda Garcia MD, [facility], ??CLIA Certificate: [id number] DISCUSSION Metastatic squamous cell carcinoma. Cell block examined. See note. Note: See [id number] for immunohistochemical characterization. THIS RESULT REQUIRES PHYSICIAN/A.P.P. [...] Cell Block 1.(A) 09/20/2023 9:58 AM EDT [facility] LYMPH NODE SPECIMEN / Unknown 09/16/2023 10:59 AM EDT 09/16/2023 10:59 AM EDT Bipin Moseley MD PATHOLOGY/CYTOL OGY ORDERABLES [facility] [place] [address] * (ABNORMAL) Non-Social Work Assistant Final Report (09/16/2023 10:59 AM EDT) Diagnosis Discussion [id number] ? Location: 4T; EA09; A The signing [...] The assay was performed according to the departmental buyer's instructions using Anti-PD-L1 (22C3, pharmDX) antibody. Electronically signed by: ?Jcarlos Marcelo MD Verified: ??10/30/2023 3:50 ?? Pathologist Performed at: ??-[facility] Dept. of Pathology, [place] [address] Special Weapons Unit Officer: Brenda Garcia MD, FCAP, ??CLIA Certificate: [id number] ? Non-Social Work Assistant Final DIAGNOSIS Positive for Malignancy Electronically signed by: ?El Hernandez MD, PhD Verified: ??09/20/2023 9:56 ?? Pathologist Performed at: ??-[facility] Dept. of Pathology, [place] [address] Special Weapons Unit Officer: Brenda Garcia MD, FCAP, ??CLIA Certificate: [id number] DISCUSSION Metastatic squamous cell carcinoma. Cell block [...] Cell Block 1.(A) 10/30/2023 3:50 AM EDT [facility] LYMPH NODE SPECIMEN / Unknown 09/16/2023 10:59 AM EDT 09/16/2023 10:59 AM EDT Bipin Moseley MD PATHOLOGY/CYTOL OGY ORDERABLES [facility] [place] [address] * Non-Social Work Assistant Final Report (09/16/2023 10:59 AM EDT) Diagnosis Discussion [id number] ? Location: 4T; EA09; A The signing pathologist has (i) examined the relevant preparation(s) for the specimen(s) and (ii) rendered or confirmed the diagnosis(es). . ? Non-Social Work Assistant Final DIAGNOSIS Negative for Malignancy Electronically signed by: ?David EMERSON PhD, [place] Verified: ??09/17/2023 15:36 ??Pathologist Performed at: ??-[facility] Dept. of Pathology, [place] [address] Special Weapons Unit Officer: Brenda Garcia MD, AP, ??CLIA Certificate: [id number] DISCUSSION Lymph node, 4L (EBUS-guided FNA): Consistent [...] Cell Block 1. 09/17/2023 3:36 PM EDT [facility] LYMPH NODE SPECIMEN / Unknown 09/16/2023 10:59 AM EDT 09/16/2023 10:59 AM EDT Bipin Moseley MD PATHOLOGY/CYTOL OGY ORDERABLES [facility] [place] [address] * Cytopathology Non-Gynecological (09/16/2023 10:59 AM EDT) AP Specimen 09/16/2023 10:5 9 AM EDT 09/16/2023 10:59 AM EDT Narrative [facility] - 09/16/2023 10:59 AM EDT Specimen requisition ordered. ??Separate Pathology report to follow Bipin Moseley MD PATHOLOGY/CYTOL OGY ORDERABLES [facility] [place] [place] [address] * Cytopathology Non-Gynecological (09/16/2023 10:59 AM EDT) AP Specimen 09/16/2023 10:5 9 AM EDT 09/16/2023 10:59 AM EDT Narrative [facility] - 09/16/2023 10:59 AM EDT Specimen requisition ordered. ??Separate Pathology report to follow Bipin Moseley MD PATHOLOGY/CYTOL OGY ORDERABLES Performing Organization Address [facility]/ZIP Co de Phone Number [facility] [place] [address] * Cytopathology Non-Gynecological (09/16/2023 10:59 AM EDT) AP Specimen 09/16/2023 10:5 9 AM EDT 09/16/2023 10:59 AM EDT Narrative [facility] - 09/16/2023 10:59 AM EDT Specimen requisition ordered. ??Separate Pathology report to follow Bipin Moseley MD PATHOLOGY/CYTOL OGY ORDERABLES Performing Organization Address [facility]/ZIP Co de Phone Number [facility] [place] [address] * Specimen to Pathology (09/16/2023 10:59 AM EDT) AP Specimen 09/16/2023 10:5 9 AM EDT 09/16/2023 10:59 AM EDT Narrative [facility] - 09/16/2023 10:59 AM EDT Specimen requisition ordered. ??Separate Pathology report to follow Bipin Moseley MD PATHOLOGY/CYTOL OGY ORDERABLES Performing Organization Address [facility]/ZIP Co de Phone Number [facility] [place] [address] * Body Fluid Culture, Aerobic Pleural Fluid (09/16/2023 10:38 AM EDT) Body Fluid Culture No growth [facility] Gram Stain Cytocentrifuge Gram Stain performed Neutrophils seen No microorganisms seen. [facility] Pleural Fluid 09/16/2023 10: 38 AM EDT 09/16/2023 11:51 AM EDT Comment:right Narrative Resulting Agency Comment Spec In Lab Bipin Moseley MD MICROBIOLOGY - GENERAL ORDERABLES [facility] [place] [id number] * Non-Social Work Assistant Final Report (09/16/2023 10:37 AM EDT) Diagnosis Discussion [id number] ? Location: 4T; EA09; A The signing pathologist has (i) examined the relevant preparation(s) for the specimen(s) and (ii) rendered or confirmed the diagnosis(es). . ? Non-Social Work Assistant Final DIAGNOSIS Atypical Electronically signed by: ?Jonathan EMERSON, Wilberto Verified: ??09/20/2023 11:09 ??Pathologist Performed at: ??-[facility] Dept. of Pathology, [place] [address] Special Weapons Unit Officer: Brenda Garcia MD, FCAP, ??CLIA Certificate: [id number] DISCUSSION Pleural fluid, right (thoracentesis): Less than optimal due to cellular degeneration. The specimen consists predominantly abundant necrotic debris, degenerated cells, and scattered degenerated atypical cells. See also the surgical specimen, [id number], and FNA specimens, [id number] and [id number]. Cell block was examined. Clinical and radiologic [...] Cell Block 1. 09/20/2023 11:09 AM EDT [facility] Pleural Fluid 09/16/2023 10: 37 AM EDT 09/16/2023 10:37 AM EDT Bipin Moseley MD PATHOLOGY/CYTOL OGY ORDERABLES Performing Organization Address City/[facility]/[place] [address] * Cytopathology Non-Gynecological (09/16/2023 10:37 AM EDT) AP Specimen 09/16/2023 10:3 7 AM EDT 09/16/2023 10:37 AM EDT Narrative [facility] - 09/16/2023 10:37 AM EDT Specimen requisition ordered. ??Separate Pathology report to follow Bipin Moseley MD PATHOLOGY/CYTOL OGY ORDERABLES Performing Organization Address City/[facility] [place] [address] documented in this encounter Visit Diagnoses Not on filedocumented in this encounter Active and Recently Administered Medications Times are shown in EDT. Continuous Medication Order 09/14/2023 09/15/2023 09/16/2023 lactated ringers infusion (CANCELED) 100 mL/hr, Intravenous, CONTINUOUS, Starting on Aileen 5//24 at 1015, Until Aileen 5/24 at 1253, Endoscopy (Day of Procedure) 1028 (New Bag - Prov ider: Gopal Adam CRNA)1113 (Anesthesia Volume Adjustment - Provider: Gopal Adam CRNA) documented in this encounter Care Teams Nursing Project Coordinator Relationship Specialty Start Date End Date Kadi Lane [place] [address] PCP - General Family Medicine 07/28/16 documented as of this encounter
--- OUTSIDE RECORDS SUMMARY | 2024-06-20 01:27 | XMS_ITS | Encounter Summary ---
[place] [address] Care Team Providers Care Fruit Peeler Name Role Phone Kadi Lane Primary Care Provider Encounter Details Date Type Department Care Team (Late st Contact Info) Description 08/31/2022 Telephone [place] [address] Lindsay Hunter RN Social History Tobacco Use Types Packs/Day [...] encounter Miscellaneous Notes * Telephone Encounter - Lindsay Hunter RN - 08/31/2022 2:16 PM EDT I called and spoke with this patient's spouse, Ania, regarding participation in outpatient cardiac rehab. Marco Antonio is s/p PCI. Ania told me that he knows about cardiac rehab at [facility] and wants to participate in this program. Will send the discharge summary and referral to [facility] cardiac rehab. He should expect to hear from them in 1-2 weeks. documented in this encounter Plan of Treatment Upcoming Encounters Date Type Department Care Team (Late st Contact Info) Description 06/20/2024 10:00 AM EST Office Visit Hematology/Oncology at [address] [phone] Lia Barber, [address] HEMATOLOGY AND ONCOLOGY [place], [place] [id number] 06/20/2024 10:30 AM EST Infusion Hematology Oncology at [address] [phone] 07/04/2024 11:00 AM EST Office Visit Hematology/Oncology at [address] [phone] Lia Barber, [address] HEMATOLOGY AND ONCOLOGY [place], [place] [phone] 07/04/2024 11:30 AM EST Infusion Hematology Oncology at [address] [phone] documented as of this encounter Visit Diagnoses Not on filedocumented in this encounter Care Teams Fruit Peeler Relationship Specialty Start Date End Date Kadi Lane PA [address] [place] [address] PCP - General Family Medicine 07/28/16 documented as of this encounter
--- OUTSIDE RECORDS SUMMARY | 2024-06-20 01:27 | XMS_ITS | Encounter Summary ---
Author Organization [facility] [place] [address] Care Team Providers Care Slip Dumper Name Role Phone Kadi Lane Primary Care Provider Encounter Details Date Type Department Care Team (Latest Contact Info) Description 10/09/2022 Travel Social History Tobacco Use Types Packs/Day Years Used Date Smoking Tobacco: Former Cigarettes 2 32 1 [phone] Smokeless Tobacco: Former Alcohol Use Standard Drinks/Week [...] AM EST Office Visit Hematology/Oncology at [address] [phone] Lia Barber [address] HEMATOLOGY AND ONCOLOGY [place], [place] [address] 06/20/2024 10:30 AM EST Infusion Hematology Oncology at [address] [phone] 07/04/2024 11:00 AM EST Office Visit Hematology/Oncology at [address] [phone] [address] HEMATOLOGY AND ONCOLOGY [place], [place] [address] 07/04/2024 11:30 AM EST Infusion Hematology Oncology at [address] [phone] documented as of this encounter Visit Diagnoses Not on filedocumented in this encounter Care Teams Slip Dumper Relationship Specialty Start Date End Date Kadi Lane PA [address] [place] [address] PCP - General Family Medicine 07/28/16 documented as of this encounter
--- OUTSIDE RECORDS SUMMARY | 2024-06-20 01:27 | XMS_ITS | Encounter Summary ---
Author Organization [facility] [place] [address] Care Team Providers Care District Or District Office Director Name Role Phone Kadi Lane Primary Care Provider [phone] Encounter Details Date Type Department Care Team (Late st Contact Info) Description 10/15/2022 11:15 AM EDT Procedure visit Radiation Oncology at [address] [phone] Enrrique Tafoya MD [address] [place] [address] [place] [address] Non-small cell cancer of right lung Social [...] Sign Reading Time Taken Comments Blood Pressure 146/54 10/15/2022 11:16 AM EDT Pulse 54 10/15/2022 11:16 AM EDT Temperature 36.6 ??C (97.8 ??F) 10/15/2022 11:16 AM E DT Respiratory Rate 18 10/15/2022 11:16 AM EDT Oxygen Saturation 100% 10/15/2022 11:16 AM EDT Inhaled Oxygen Concentration - - Weight 63.7 kg (140 lb 6.4 oz) 10/15/2022 11:16 AM EDT Height - - Body Mass Index 22.66 10/07/2022 3:12 PM EDT documented in this encounter Progress Notes * Enrrique Tafoya MD - 10/15/2022 11:15 AM EDT Images from the original note were not included. [facility] Radiation Oncology Radiation Oncology SBRT On-treatment Visit Note Patient ID Patient name: Marco Antonio Xiong Date of : 1945 Referring: Dr Rex Pope PCP: ADRIANO Sheriff Chief complaint: Cancer Staging Non-small cell lung cancer Staging form: Lung, AJCC 8th Edition - Clinical: Stage IIA (cT2b, cN0, cM0) - Signed by Rafael Pope MD on 08/12/2022 Treatment Details Intent: Definitive (Curative) Modality: SBRT Initial Treatment Site RLL Prescribed Dose 50 Gy in 5 fractions Current Dose: 30 Gy in 3 fractions Interval Clinical Course General: No changes since last seen. Resp: No new SOB. Slight dry cough. Pain: Pain score today is 0/10. Performance Status KPS Score ECOG Grade Definition 90-100 0 Fully active, able to carry on all pre-disease performance without restriction XX 70-80 1 Restricted in physically strenuous activity but ambulatory and able to carry out work ofa light or sedentary nature, e.g., light house [...] selfcare; totally confined to bed or chair Medications Medications 10/15/22 1121 Medication Sig Taking? clopidogreL (Plavix) 75 mg tablet Take 1 tablet by mouth daily. Yes metoprolol succinate XL (Toprol-XL) 25 mg Tablet Sustained Release 24 hr Take 0.5 tablets by mouth daily. Yes atorvastatin (Lipitor) 40 mg Tablet Take 1 tablet by mouth daily. Yes multivitamin (THERAGRAN) Tablet Take 1 tablet by mouth daily. Yes aspirin EC 81 mg Tablet, Delayed Release (E.C.) Take 81 mg by mouth daily. Yes omeprazole (PriLOSEC) 20 mg Capsule, Delayed Release(E.C.) Take 20 mg by mouth every morning. Yes nitroGLYcerin (Nitrostat) 0.4 mg Tablet, Sublingual Place 1 tablet under the tongue every 5 minutesas needed for Chest pain. Patient not taking: Reported on 10/15/2022 Exam Vitals: BP 146/54 (BP Location (NBP): Left arm, Patient Position: Sitting, BP Cuff Sizes: Adult (25-34 cm)) Pulse 54 Temp 36.6 ??C (97.8 ??F) Resp 18 Wt 63.7 kg (140 lb 6.4 oz) SpO2 100% BMI 22.66 kg/m?? General: Appears well, in no distress Imaging/Labs Interval setup imaging has been checked and approved. See Aria for details. Impression/Plan Tolerance to radiotherapy: Tolerating as anticipated. Continue as planned. Followup: RTC for on-treatment assessment 10/20/22. Post Treatment Note I directly observed and supervised today's treatment from the radiation therapy console, which consisted of pretreatment imaging for setup, cone-beam CT for verification and intrafraction monitoring using the InktankRT surface guided treatment system. Marco Antonio tolerated treatment with no concerns and will return for his 4th fraction on Friday 10/13. No orders of the defined types were placed in this encounter. ??? [facility] ([facility] ??? [employer] Commission on Cancer (ACS Jorge) Accredited Cancer Program ??? [employer] (ACR) Accredited Radiation Oncology Program documented in this encounter Plan of Treatment Upcoming Encounters Date Type Department Care Team (Late st Contact Info) Description 06/20/2024 10:00 AM EST Office Visit Hematology/Oncology at [address] [phone] Lia Barber APRN [address] [place] [address] DR HEMATOLOGY AND ONCOLOGY [place], [place] [id number] 06/20/2024 10:30 AM EST Infusion Hematology Oncology at [address] [phone] 07/04/2024 11:00 AM EST Office Visit Hematology/Oncology at [address] [phone] Lia Barber APRN [address] [place] [address] DR HEMATOLOGY AND ONCOLOGY [place], [place] [id number] 07/04/2024 11:30 AM EST Infusion Hematology Oncology at [address] [phone] documented as of this encounter Visit Diagnoses Diagnosis Non-small cell cancer of right lung documented in this encounter Care Teams District Or District Office Director Relationship Specialty Start Date End Date Kadi Lane PA [address] [place] [address] PCP - General Family Medicine 07/28/16 documented as of this encounter
--- OUTSIDE RECORDS SUMMARY | 2024-06-20 01:27 | XMS_ITS | Encounter Summary ---
Author Organization [facility] [place] [address] Care Team Providers Care Bird Trapper Name Role Phone Kadi Lane Primary Care Provider Reason for Visit * Consultation (Routine) - Closed Specialty Diagnoses / Procedures Referred By Jorge Luis bowers Referred To Contact Radiation Oncology Diagnoses Non-small cell lung cancer, unspecified laterality Procedures Simulation for Radiation Therapy Planning Rafael Pope MD [facility] [place] [address] St Rad Onc Office [address] [place] [phone] Referral ID Status Reason Start Date Expiration Date V isits Requested Visits Authorized [id number] Closed Consult, Test & Treat 09/22/2022 09/22/2023 1 1 Encounter Details Date Type Department Care Team (Late st Contact Info) Description 09/23/2022 1:00 PM EDT Ancillary Appointment Radiation Oncology at [address] [phone] Rafael Pope MD [facility] [place] [address] Social History Tobacco Use Types Packs/Day Years [...] PM EDT documented as of this encounter Patient Instructions * Patient Instructions* Paige Christian RN - 09/23/2022 1:00 PM EDT General instructions for Radiation therapy Radiation Oncology Team Radiation Oncologist -The doctor who will direct all aspects of your radiation treatments Nurse Practitioner - They assist your doctor in treating your side effects and with follow up appointments. Registered Nurse - They hima you in learining about you radaiton treatments, , and things you can do to help manage the side effects. Taping Supervisor - They take the doctors radiation prescription and customize it into doses (or days of treatments) specific for you. Physicist - They make sure all the machines are operating correctly and double check calculations for your treatment. Radiation Technologists - They operate the machines which deliver your radiation. You see them daily and they schedule your treatments. Simulation CT/ Planning Session- Your first step after deciding to start radiation treatments is done on a special CT scanner in radiation oncolcgy. The images obtained are used to plan your treatments. This may be scheduled the same day you meet your doctor or in a separate visit. This usually takes between 30 minutes to one hour. You may need an IV for contrast. If so our nurse will let you know that day along with any other special instructions. During this visit we may mahsa Your skin with a tiny ???tattoos?? , take pictures or make special molds or masks to help us place you in the exact treatment position every day. After this session it takes up to two weeks for your plan to be developed and checked by your doctor, the dosimetrists and the physicist. Skin Care - Your nurse/physician will provide you with the necessary creams and supplies as you need them during your treatments. Please make sure to keep the treatment area clean and dry. Be sure to notice if your clothing rubs or digs into the treatment area and try to wear clothes which are less abrasive, like cotton or loose fitting. Do not use harsh soaps, ointments, deodorants or tapes in the treatment area unless directed by your nurse or doctor. Keep the treatment area out of the sun during treatments. General precautions- DO NOT USE heating pads, hot water bottles, hot poultices, heat lamps, heat in any form, or ice packs to the area of your body being treated. It is common to start feeling fatigue after a few weeks of being treated. You can help minimize this by getting regular exercise or walking and getting plenty of rest. In general a well balanced diet is recommended. The irrigation supervisor and nurse will inform you of any special diet requirements. Avoid shaving the treatment area with a razor. If you must shave use an electric razor. Our Contact numbers Section of Radiation Oncology Our normal business hours are: Wednesday - Wednesday: 8:00 AM to 5:00 PM [facility]: [facility]: If you have questions about your radiation appointments please ask to speak to one of our secretarystaff. If you have questions for a nurse/doctor about radiation treatments, radiation side effects or you are not feeling well it is best to call early in the day. This allows a nurse to return your call by5 PM the same day. If you call after 4 PM, a nurse will return your call by 5 PM the following day unless it is emergent. If you experience any of the following you need to seek emergency care immediately by calling 911 1. Sudden and unexpected breathing difficulty without any exertion 2. Sudden onset of chest pain 3. Sudden onset of severe pain or uncontrolled pain 4. Sudden onset of severe weakness and/or unable to ambulate 5. Sudden new onset of a seizure 6. Fall resulting in injury A Radiation Oncology doctor is professional volleyball player after our normal hours and on weekends. To call for urgent medical issues from radiation treatments that can not wait until normal businesshours: Call for either location and have the cuff turner machine operator page the Radiation Oncologist professional volleyball player. documented in this encounter Plan of Treatment Upcoming Encounters Date Type Department Care Team (Late st Contact Info) Description 06/20/2024 10:00 AM EST Office Visit Hematology/Oncology at [address] [phone] Lia Barber APRN [address] [place] [address] DR HEMATOLOGY AND ONCOLOGY [place], [place] [id number] 06/20/2024 10:30 AM EST Infusion Hematology Oncology at [address] [phone] 07/04/2024 11:00 AM EST Office Visit Hematology/Oncology at [address] [phone] Lia Barber APRN [address] [place] [address] DR HEMATOLOGY AND ONCOLOGY [place], [place] [id number] 07/04/2024 11:30 AM EST Infusion Hematology Oncology at [address] [phone] Scheduled Orders Name Type Priority Associated Diagnoses Orde r Schedule Simulation for Radiation Therapy Planning Procedures Routine Non-small cell lung cancer, unspecified laterality Ordered: 09/22/2022 documented as of this encounter Visit Diagnoses Not on filedocumented in this encounter Care Teams Bird Trapper Relationship Specialty Start Date End Date Kadi Lane [place] [address] PCP - General Family Medicine 07/28/16 documented as of this encounter
--- OUTSIDE RECORDS SUMMARY | 2024-06-20 01:27 | XMS_ITS | Encounter Summary ---
Author Organization [facility] [place] [address] Care Team Providers Care Structural Mill Supervisor Name Role Phone Kadi Lane Primary Care Provider [phone] Reason for Visit * Reason Comments Follow-up Procedure Encounter Details Date Type Department Care Team (Latest Contact Info) Description 10/19/2022 12:30 PM EDT Procedure visit Radiation Oncology at [address] [phone] Kimberly Rangel MD [facility] [place] [address] Non-small cell cancer of right lung Social History Tobacco Use Types Packs/Day Years Used Date Smoking Tobacco: Former Cigarettes 2 32 1 896 - 1245 Smokeless Tobacco: Former Alcohol Use Standard Drinks/Week [...] Sign Reading Time Taken Comments Blood Pressure 132/52 10/19/2022 12:01 PM EDT Pulse 52 10/19/2022 12:01 PM EDT Temperature 37 ??C (98.6 ??F) 10/19/2022 12: 01 PM EDT Respiratory Rate 18 10/19/2022 12:0 1 PM EDT Oxygen Saturation 99% 10/19/2022 12: 01 PM EDT Inhaled Oxygen Concentration - - Weight 63.7 kg (140 lb 6.4 oz) 10/20/19 12:01 PM EDT with shoes Height - - Body Mass Index 22.66 10/07/2022 3:12 PM EDT documented in this encounter Progress Notes * Kimberly Rangel MD - 10/19/2022 12:30 PM EDT Images from the original note were not included. [facility] Radiation Oncology Radiation Oncology SBRT On-treatment [...] 50 Gy in 5 fractions Current Dose: 50 Gy in 5 fractions Interval Clinical Course General: No changes since last seen. Resp: No new SOB. Slight dry cough. Pain: Pain score today is 0/10. Skin: A little itchy skin R lateral chest wall, says he has cream @ home for it. Performance Status KPS Score ECOG Grade Definition [...] taking: Reported on 10/15/2022 Exam Vitals: BP 132/52 Pulse 52 Temp 37 ??C (98.6 ??F) (Temporal) Resp 18 Wt 63.7 kg (140 lb 6.4 oz) Comment: with shoes SpO2 99% BMI 22.66 kg/m?? General: Appears well, in no distress. 4 x 4 cm area of telangiectasias upper R chest wall laterally. Imaging/Labs Interval setup imaging has been checked and approved. See Sushma for details. Impression/Plan Tolerance to radiotherapy: Tolerating as anticipated. Completes xrt today. Followup: RTC as per Dr. Pope. Marco Antonio says he will do followup CT ch locally or @ [facility]. Post Treatment Note I directly observed and supervised today's treatment from the radiation therapy console, which consisted of pretreatment imaging for setup, cone-beam CT for verification and intrafraction monitoring using the VisionRT surface guided treatment system. Marco Antonio tolerated treatment with no concerns and completes SBRT today.. No orders of the defined types were placed in this encounter. National [facility] (N[facility]) [facility] [employer] Commission on Cancer (ACS Jorge) Accredited Cancer Program [employer] (ACR) Accredited Radiation Oncology Program documented in this encounter Plan of Treatment Upcoming Encounters Date Type Department Care Team (Late st Contact Info) Description 06/20/2024 10:00 AM EST Office Visit Hematology/Oncology at [address] [phone] Lia Barber APRN [address] [place] [address] HEMATOLOGY AND ONCOLOGY [place], [place] [id number] 06/20/2024 10:30 AM EST Infusion Hematology Oncology at [address] [phone] 07/04/2024 11:00 AM EST Office Visit Hematology/Oncology at [address] [phone] Lia Barber APRN [address] [place] [address] DR HEMATOLOGY AND ONCOLOGY [place], [place] [phone] 07/04/2024 11:30 AM EST Infusion Hematology Oncology at [address] [phone] documented as of this encounter Visit Diagnoses Diagnosis Non-small cell cancer of right lung documented in this encounter Care Teams Structural Mill Supervisor Relationship Specialty Start Date End Date Kadi Lane PA [address] [place] [address] PCP - General Family Medicine 07/28/16 documented as of this encounter
--- OUTSIDE RECORDS SUMMARY | 2024-06-20 01:27 | XMS_ITS | Encounter Summary ---
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 [place] [address] [place] [address] [facility] Referral ID Status Reason Start Date Expiration Date Visits Re quested Visits Authorized [id number] 1 1 Encounter Details Date Type Department Care Team (Latest Contact Info) Description 08/28/2022 10:39 AM EDT - 08/29/2022 10:05 AM EDT Hospital Encounter [place] [phone] Leti Hopper MD [facility] [place] [address] Chest pain, unspecified type; Coronary artery disease, unspecified vessel or lesion type, unspecified whether angina present, unspecified whether northwestern shoshone or transplanted heart Discharge Disposition: Home Social History Tobacco Use [...] Sign Reading Time Taken Comments Blood Pressure 123/55 08/29/2022 7:44 AM EDT Pulse 55 08/29/2022 7:44 AM EDT Temperature 37.1 ??C (98.8 ??F) 08/29/2022 7:44 AM ED T Respiratory Rate 15 08/29/2022 3:27 AM EDT Oxygen Saturation 97% 08/29/2022 7:44 AM EDT Inhaled Oxygen Concentration - - Weight 63.2 kg (139 lb 4.8 oz) 08/28/2022 11:06 AM EDT Height 165.4 cm (5' 5.12) 08/28/2022 11:06 AM E DT Body Mass Index 23.1 08/28/2022 11:06 AM EDT documented in this encounter Discharge Summaries * Radhames Feliciano MD - 08/29/2022 6:28 AM EDT Discharge Summary Patient Name: Marco Antonio Xiong Patient Age: 76 y.o. Language: Cameroonian Race: White Ethnicity: Not nor Admit date: 08/28/2022 Discharge date and time: 08/29/2022 Attending Physician: Leti Nguyen MD Follow-up Recommendations for Providers: - dual antiplatelet regimen as follows: - aspirin 81 mg daily lifelong - clopidogrel 75 mg daily for 6 months after PCI for stable ischemic heart disease -Do not stop aspirin or clopidogrel unless told to do so by a sustainable systems analyst - recommend follow up with cardiology in 3-4 weeks Inpatient Provider Contact Information: Leti Nguyen MD - attending Radhames Feliciano MD - Fellow Inpatient Provider Contact Information: For questions regarding this document or issues relating to this hospitalization on the Medical Service, please contact your inpatient physician through the [facility] . Issues afterhours and on weekends will be handled by the Hospitalist staff on-call. Discharge Diagnoses (Hospital Problems) and Secondary Diagnoses (Chronic Problems): Active Hospital Problems Diagnosis ??? CAD (coronary artery disease) Resolved Hospital Problems No resolved problems to display. Active Non-Hospital Problems Diagnosis ??? Non-small cell lung cancer ??? Pleural effusion ??? Hypopharyngeal mass Operations/Major Procedures: Operations: Procedure(s): CARDIAC CATHETERIZATION CORONARY ANGIOGRAPHY; W C,POSSIBLE PCI (WRVU 5.6) 08/28/2022 History of Presentation: Marco Antonio Xiong is a 76 y.o. 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 Hospital Course: Patient was admitted to same day after undergoing cardiac catheterization. He is s/p PCI to Mid LADX2 with good result. Post procedure hospital course was uneventful. He received IVF. There were no post procedure access site problems. Patient given instructions for follow up. Functional and Cognitive Status: Independent in ALDs and IADLs, A&O x 3, at baseline Vital Signs at Discharge: BP: 133/64, Heart Rate: 50, Temp: 37 ??C (98.6 ??F), Resp: 15, BMI (Calculated): 23.09 Height: 165.4 cm (5' 5.12) (08/28/22 1106) Weight: 63.2 kg (139 lb 4.8 oz) (08/28/22 1106) Functional and Cognitive Status: Patient is at baseline functional and cognitive status Studies: Cath Report Left Main There was a 50% single discrete stenosis of the ostial segment of the left main artery. The left main was large. Left Anterior Descending There was mild diffuse (<=25% stenosis) disease of the distal segment of the left anterior descending artery (LAD). The LAD was moderate in size. The mid 1 segment of the LAD had 99% stenosis. There also was an 80% long segmental stenosis of the mid 2 segment of the LAD. There was a 99% single discrete stenosis of the ostial segment of the first diagonal branch (Diagonal 1) of the LAD. The Diagonal 1 was moderate in size. Left Circumflex There was mild diffuse (<=25% stenosis) disease of the mid segment of the left circumflex artery (LCX). The LCX was moderate in size. Right Coronary Artery There was a 30% single discrete stenosis of the proximal segment of the right coronary artery (RCA). The RCA was moderate in size. The mid segment of the RCA had mild diffuse (<=25% stenosis) disease. There was a single discrete total occlusion of the distal segment of the right posterior descending branch (RPDA) of the RCA. The RPDA was moderate in size. Distal flow was via collaterals from the LAD and collaterals from the LCX. Pending Studies and Lab Data: None Discharge Conditions/Prognosis: Stable for discharge home Discharge to: Home Updated Allergies/ADRs: No Known Allergies Immunizations Given this Hospitalization: There is no immunization history on file for this patient. Discharge Medications: Your Medications New Medications Dose Details clopidogreL 75 mg tablet Commonly known as: Plavix Take 1 tablet by mouth daily. 75 mg Quantity: 90 tablet Refills: 3 Continued medications, unchanged Dose Details aspirin EC 81 mg EC (DR) tablet Take 81 mg by mouth daily. 81 mg Refills: 0 atorvastatin 40 mg tablet Commonly known as: Lipitor Take 1 tablet by mouth daily. 40 mg Quantity: 90 tablet Refills: 3 magnesium oxide 400 mg (241.3 mg magnesium) Tab Commonly known as: Mag-Ox Take 400 mg by mouth daily. 400 mg Refills: 0 metoprolol succinate XL 25 mg ER 24 hr tablet Commonly known as: Toprol-XL Take 0.5 tablets by mouth daily. 12.5 mg Quantity: 90 tablet Refills: 3 multivitamin Tab Commonly known as: THERAGRAN Take 1 tablet by mouth daily. 1 tablet Refills: 0 nitroGLYcerin 0.4 mg sublingual tablet Commonly known as: Nitrostat Place 1 tablet under the tongue every 5 minutes as needed for Chest pain. 0.4 mg Quantity: 30 tablet Refills: [address] capsule Commonly known as: PriLOSEC Take 20 mg by mouth every morning. 20 mg Refills: 0 Smoking Status at Discharge: Social History Tobacco Use Smoking Status Former ??? Packs/day: 2.00 ??? Years: 32.00 ??? Pack years: 64.00 ??? Types: Cigarettes ??? Start date: 1955 ??? Quit date: 1986 ??? Years since quittin.3 Smokeless Tobacco Former Instructions Given to Patient at Discharge: Patient Instructions You received two stents in your Mid Left anterior Descending Artery You should take aspirin 81mg daily for life. You should take plavix 75 mg daily for 6 months. Do NOT miss any doses of plavix or aspirin for any reason Close outpatient follow up with your sustainable systems analyst Radial Access for Heart Cath Activity Try to avoid bending your wrist for the first 12-24 hours after the procedure to allow the artery to fully heal. Do not participate in active sports for 48 hours. Do not lift anything greater than 5 lbs. Catheter Insertion Area Care Take the dressing off of the catheter insertion site the morning following the procedure. Leave thesite open to air. If the site is oozing you may cover it with a band aid. You may take a shower if you wish. Look for signs of infection over the next several days. It is uncommon to have any visible blood at the site, any obvious bleeding is abnormal. A bruise around the wrist or small lump under the skin is normal: they generally disappear in 3-5 days. Expect some mild tenderness over the area where the catheter was inserted. You will notice this after the local anesthetic (numbing medicine) wears off. This should improve during the 24-48 hours after the procedure. You may use acetaminophen (tylenol) if needed. Contact your doctor if the discomfort worsens. Problems to Watch for If there is bright red blood flowing from the catheter insertion area: *stop what you are doing *hold pressure steadily on the area for 15 minutes *call for help *if the bleeding does not stop in 15 minutes call 911 for an ambulance. If there is swelling with black and blue color at the catheter insertion site, there may be bleeding inside. Contact the doctor if there is any increase in size. Look at the insertion site for the first few days at home. Signs of infection are: *redness *swelling *yellow, white, green or brown foul smelling drainage. *increased soreness If you think there is an infection, take your temperature. Then call your doctor. The limb on the side where you had your catheterization should look and feel normal in color, sensation, and temperature. If your hand or fingers become cool, pale, blue or change color contact your doctor. If you are having numbness or tingling in your fingers or hand contact your doctor. Follow-up: No future appointments. New Medications to be Picked Up Aspirin 81mg daily, plavix 75mg daily For questions regarding this document or issues relating to this hospitalization on the Medical Service, please contact your inpatient physician through the [facility] . Issues afterhours and on weekends will be handled by the Hospitalist staff on-call. General Instructions None Discharge References/Attachments None documented in this encounter Discharge Instructions * Patient Instructions* Luke Long, - 08/28/2022 4:44 PM EDT You received two stents in your Mid Left anterior Descending Artery You should take aspirin 81mg daily for life. You should take plavix 75 mg daily for 6 months. Do NOT miss any doses of plavix or aspirin for any reason Close outpatient follow up with your sustainable systems analyst Radial Access for Heart Cath Activity Try to avoid bending your wrist for the first 12-24 hours after the procedure to allow the artery to fully heal. Do not participate in active sports for 48 hours. Do not lift anything greater than 5 lbs. Catheter Insertion Area Care Take the dressing off of the catheter insertion site the morning following the procedure. Leave thesite open to air. If the site is oozing you may cover it with a band aid. You may take a shower if you wish. Look for signs of infection over the next several days. It is uncommon to have any visible blood at the site, any obvious bleeding is abnormal. A bruise around the wrist or small lump under the skin is normal: they generally disappear in 3-5 days. Expect some mild tenderness over the area where the catheter was inserted. You will notice this after the local anesthetic (numbing medicine) wears off. This should improve during the 24-48 hours after the procedure. You may use acetaminophen (tylenol) if needed. Contact your doctor if the discomfort worsens. Problems to Watch for If there is bright red blood flowing from the catheter insertion area: *stop what you are doing *hold pressure steadily on the area for 15 minutes *call for help *if the bleeding does not stop in 15 minutes call 911 for an ambulance. If there is swelling with black and blue color at the catheter insertion site, there may be bleeding inside. Contact the doctor if there is any increase in size. Look at the insertion site for the first few days at home. Signs of infection are: *redness *swelling *yellow, white, green or brown foul smelling drainage. *increased soreness If you think there is an infection, take your temperature. Then call your doctor. The limb on the side where you had your catheterization should look and feel normal in color, sensation, and temperature. If your hand or fingers become cool, pale, blue or change color contact your doctor. If you are having numbness or tingling in your fingers or hand contact your doctor. Follow-up: No future appointments. New Medications to be Picked Up Aspirin 81mg daily, plavix 75mg daily For questions regarding this document or issues relating to this hospitalization on the Medical Service, please contact your inpatient physician through the [facility] . Issues afterhours and on weekends will be handled by the Hospitalist staff on-call. documented in this encounter Medications at Time of Discharge Medication Sig Dispensed Refills Start Date End Date clopidogreL (Plavix) 75 mg tablet Take 1 tablet by mouth daily. 90 tablet 3 08/28/2022 nitroGLYcerin (Nitrostat) 0.4 mg Tablet, SublingualIndications:Ch est pain, unspecified type Place 1 tablet under the tongue every 5 minutes as needed for Chest pain. 30 tablet 3 07/07/2022 multivitamin (THERAGRAN) Tablet Take 1 tablet by mouth daily. aspirin EC 81 mg Tablet, Delayed Release (E.C.) Take 81 mg by mouth daily. magnesium oxide (Mag-Ox) 400 mg (241.3 mg magnesium) Tablet Take 400 mg by mouth daily. 09/23/2022 metoprolol succinate XL (Toprol-XL) 25 mg Tablet Sustained Release 24 hrIndications:Chest pain, unspecified type Take 0.5 tablets by mouth daily. 90 tablet 3 07/07/2022 08/04/2023 atorvastatin (Lipitor) 40 mg TabletIndications:Chest pain, unspecified type Take 1 tablet by mouth daily. 90 tablet 3 07/07/2022 06/23/2023 omeprazole (PriLOSEC) 20 mg Capsule, Delayed Release(E.C.) Take 20 mg by mouth every morning. 02/09/2022 09/01/2023 documented as of this encounter Progress Notes * Travis Solorio RN - 08/29/2022 10:[address] [facility] Short Stay Unit Discharge Note All relevant discharge milestones have been met by the patent. After Visit Summary and discharge teaching reviewed with the patient and a family member. IV access has been discontinued. All personal belongings have been returned to the patient/family upon their departure from the unit. Patient has been discharged to home The patient has been discharged without VNA services. documented in this encounter H&P Notes * Luke Long DO - 08/28/2022 4:31 PM EDT Interventional Cardiology Post-PCI H&P Reason for Admission: s/p PCI to Mid LAD X 2 History: 76 y.o. 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 He underwent exercise nuclear SPECT MPI on 07/01/2022 at [facility] and was found to have large apical ischemia and LV EF 39%. He reports experiencing substernal chest pressure reproducibly upon lifting heavy objects of 50 to 75 pounds. He describes it as a pushing sensation on his chest and heaviness, about a 5 out of 10 in intensity He underwent cardiac catheterization today which showed- Ostial Left main 60%, he was also found tohave two sequential lesions in the mid LAD- this was stented with two stents. This patient is admitted post PCI for IV hydration, pain management, access site management in the setting of anticoagulation, telemetry monitoring, evaluation of their medical condition, and cardiacrehabilitation. PMH: Patient Active Problem List Diagnosis ??? CAD (coronary artery disease) ??? Non-small cell lung cancer ??? Pleural effusion ??? Hypopharyngeal mass Outpatient Medications Marked as Taking for the 08/28/22 encounter (Hospital Encounter) Medication Sig Dispense Refill ??? magnesium oxide (Mag-Ox) 400 mg (241.3 mg magnesium) Tablet Take 400 mg by mouth daily. ??? metoprolol succinate XL (Toprol-XL) 25 mg Tablet Sustained Release 24 hr Take 0.5 tablets by mouth daily. 90 tablet 3 ??? atorvastatin (Lipitor) 40 mg Tablet Take 1 tablet by mouth daily. 90 tablet 3 ??? multivitamin (THERAGRAN) Tablet Take 1 tablet by mouth daily. ??? aspirin EC 81 mg Tablet, Delayed Release (E.C.) Take 81 mg by mouth daily. ??? omeprazole (PriLOSEC) 20 mg Capsule, Delayed Release(E.C.) Take 20 mg by mouth every morning. Allergies as of 08/11/2022 ??? (No Known Allergies) Social History Socioeconomic History ??? Marital status: Spouse name: Not on file ??? Number of children: Not on file ??? Years of education: Not on file ??? Highest education level: Not on file Occupational History ??? Not on file Tobacco Use ??? Smoking status: Former Packs/day: 2.00 Years: 32.00 Pack years: 64.00 Types: Cigarettes Start date: 1955 Quit date: 1986 Years since quittin.3 ??? Smokeless tobacco: Former Vaping Use ??? Vaping Use: Never used Substance and Sexual Activity ??? Alcohol use: Not Currently ??? Drug use: Never ??? Sexual activity: Not on file Other Topics Concern ??? Not on file Social History Narrative Lives with his in [place], [place] (2.5 hr). 3 kids, all grown up. 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 Originally from [place]. Social Determinants of Health Financial Resource Strain: Low Risk ??? Difficulty of Paying Living Expenses: Not very hard Food Insecurity: No Food Insecurity ??? Worried About Running Out of Food in the Last Year: Never true ??? Ran Out of Food in the Last Year: Never true Transportation Needs: No Transportation Needs ??? Lack of Transportation (Medical): No ??? Lack of Transportation (Non-Medical): No Physical Activity: Not on file Housing Stability: Low Risk ??? Unable to Pay for Housing in the Last Year: No ??? Number of Places Lived in the Last Year: 1 ??? Unstable Housing in the Last Year: No Physical Exam BP 177/84 (BP Location (NBP): Left arm, Patient Position: Lying) Pulse 52 Temp 36.9 ??C (98.4 ??F) (Oral) Resp 16 Ht 165.4 cm (5' 5.12) Wt 63.2 kg (139 lb 4.8 oz) SpO2 98% BMI 23.10 kg/m?? General: well-appearing, NAD HEENT: NC/AT, anicteric sclerae, OP clear, MMM Neck: supple, no LAD, no bruits or JVD Lungs: clear without W/R/R CV: RRR, S1, S2, no M/R/G Abd: Nl BS, soft, NT, ND, obese Ext: no C/C/Edema Vascular: 2+ radial, femoral, and intact distal pulses b/l Assessment/ Plan: 1. CAD, s/p PCI to Mid LAD with two stents - admit for overnight monitoring - telemetry, serial ECGs, - continue dual antiplatelet therapy - IVF - continue BB, ACEi, statin - monitor access site - cardiac rehab consult - anticipate discharge in am -will need new RX for plavix at [place] Luke Long DO 08/28/2022 4:32 PM * Luke Long DO - 08/28/2022 7:45 AM EDT Images from the original note were not included. Patient Name: Marco Antonio Xiong Patient Age: 76 y.o. Birthdate: 1945 Admit date: 08/28/2022 Attending Physician: Leti Nguyen MD [facility] [place] [address] [place] [address] SAME DAY CARDIAC CATHETERIZATION LAB H&P ID: Marco Antonio Xiong is a 76 y.o. 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 He reports experiencing substernal chest pressure reproducibly upon lifting heavy objects of 50 to 75 pounds. He describes it as a pushing sensation on his chest and heaviness, about a 5 out of 10 in intensity. It lasts for about 10 minutes and relieves with rest.Marco Antonio Xiong has no planned upcoming surgeries. No recent or ongoing bleeding events. No black stools. Physical Exam: BP 176/66 (BP Location (NBP): Left arm) Pulse 53 Temp 36.3 ??C (97.3 ??F) (Temporal) Resp 16 Ht 165.4 cm (5' 5.12) Wt 63.2 kg (139 lb 4.8 oz) SpO2 98% BMI 23.10 kg/m?? Gen: Pleasant male in no apparent distress, able to lay flat. Cardiac: Regular rate, S1/S2 normal character and amplitude, no murmurs, rubs, or gallops. . Pulm: Clear to auscultation bilaterally, no increased work of breathing. Ext: Palpable radial and femoral pulses bilaterally. Palpable DP pulses bilaterally. Neuro: Grossly normal neurologic exam without apparent focal deficit. ASA: 2: Patient with mild systemic disease Mallampati: II: tonsillar pillars are blocked by the tongue Recent Labs: Recent CBC: Recent Labs 08/28/22 1050 07/07/22 1053 02/26/222050 WBC 6.1 7.4 7.7 HGB 12.5* 13.2* 11.5* HCT 37.3* 39.5* 33.3* PLATELET 245 288 294 Recent BMP: Recent Labs 07/07/22 1053 06/19/22 1024 02/26/22205002/26/22 0444 NA 141 -- 142 140 K 4.7 -- 4.4 4.4 CL 103 -- 106 103 CO2 27 -- 25 27 BUN 18 -- 32* 27* CREATININE 0.80 0.82 0.96 0.80 General consent statement: The indications, expected benefits, and potential risks of heart catheterization were reviewed in detail with the patient. The potential for , heart attack, stroke, kidney failure, hemorrhage, allergic reaction, vascular complications and infection were reviewed in detail. The possibility of stenting and other percutaneous intervention, with associated risk, was reviewed. The possible need for emergent coronary artery bypass surgery was reviewed. Alternatives were discussed and the patient's questions were answered in full. Following this discussion, the patient consented to the procedure and signed a form attesting to this, which is in the chart. Patient is full code. Plan: -no apparent contraindication to DAPT, patient denies upcoming or planned procedures/operations, and denies ongoing or recent bleeding events -proceed as planned -consent signed Luke Long DO [facility] 08/28/2022 documented in this encounter Plan of Treatment Upcoming Encounters Date Type Department Care Team (Late st Contact Info) Description 06/20/2024 10:00 AM EST Office Visit Hematology/Oncology at [address] [phone] HEMATOLOGY AND ONCOLOGY [place], [place] [id number] 06/20/2024 10:30 AM EST Infusion Hematology Oncology at [address] [phone] 07/04/2024 11:00 AM EST Office Visit Hematology/Oncology at [address] [phone] [place] [address] 07/04/2024 11:30 AM EST Infusion Hematology Oncology at [address] [phone] documented as of this encounter Procedures Procedure Name Priority Date/Time Associated Diagnosis Comments HEMOGRAM Routine 08/29/2022 6:34 AM EDT BASIC METABOLIC PANEL Routine 08/29/2022 6:34 AM EDT EKG 12-LEAD Routine 08/28/2022 3:01 PM EDT Coronary artery disease, unspecified vessel or lesion type, unspecified whether angina present, unspecified whether [place]western shoshone or transplanted heart CARDIAC CATHETERIZATION Routine 08/29/19 2:26 PM EDT Chest pain, unspecified type Cath Plmt Left Heart Cath & Arts W/Inj & Angio Img S&I ([id number]) 08/28/2022 11:51 AM EDT Chest pain, unspecified type BMP W/FASTING GLUCOSE Routine 08/28/2022 10:50 AM EDT HEMOGRAM Routine 08/28/2022 10:50 AM EDT DIFFERENTIAL, AUTOMATED Routine 08/29/19 10:50 AM EDT HC CBC,PLT & AUTO DIFF Routine 10:50 AM EDT documented in this encounter Results * (ABNORMAL) Hemogram (08/29/2022 6:34 AM EDT) White Blood Cell 6.4 4.0 - 9.5 x10(3)/mc L [facility] Red Blood Cell 3.65(L) 4.58 - 5.54 x10(6)/mc L [facility] Hemoglobin 11.7(L) 13.7 - 16.5 g/dL [facility] Hematocrit 34.1(L) 40.5 - 48.5 % [facility] Mean Cell Volume 93.4(H) 82.9 - 93.1 fL [facility] Mean Cell Hemoglobin 32.1 27.5 - 32.1 pg [facility] Mean Cell Hemoglobin Concentration 34.3 32.0 - 35.7 g/dL [facility] Platelet 230 145 - 357 x10(3)/mc L [facility] RDW Standard Deviation 45.4(H) 36.0 - 45.0 fL [facility] RDW coefficient of variation 13.2 11.4 - 13.8 % [facility] Mean Platelet Volume 9.1 7.6 - 12.[address] [facility] NRBC% auto 0.0 % [facility] NRBC Absolute 0.000 0.000 - 0.000 x10(3)/mc L [facility] Blood 08/29/2022 6:34 AM EDT 08/29/2022 7:09 AM EDT Narrative Resulting Agency Comment Spec In Lab Leti Nguyen MD HEMATOLOGY ORDERABL ES [facility] [place] [address] * (ABNORMAL) Basic Metabolic Panel (non-fasting) (08/29/2022 6:34 AM EDT) Glucose 103 65 - 199 mg/dL [facility] Comment:Diabetes: >=200 mg/d L plus symptoms Blood Urea Nitrogen 15 10 - 20 mg/dL [facility] Creatinine 0.77(L) 0.80 - 1.50 mg/dL [facility] Sodium 136 135 - 145 mmol/L [facility] Potassium 3.9 3.5 - 5.0 mmol/L [facility] Comment: Please note: ??Patients with WBC >100,000 may have falsely elevated Potassium levels. ??For accurate Potassium quantification in these patients send serum separator tube (gold top) for subsequent determinations. ??Contact the Clinical Chemistry Laboratory if there are any questions. Chloride 101 98 - 107 mmol/L [facility] Carbon Dioxide 27 22 - 31 mmol/L [facility] Anion Gap 8 5 - 15 mmol/L [facility] Calcium 9.0 8.5 - 10.5 mg/dL [facility] Est Glomerular Filtration Rate 92 >=60 mL/min/1. 73 m?? [facility] Comment: This patient's estimated GFR was calculated using the 2020 CKD-EPI equation. The estimated GFR can vary from the measured GFR by up to 30% in the absence of rapidly changing kidney function. Assessment of the estimated GFR is not appropriate when creatinine concentrations are rapidly changing. For clinical situations in which a more precise estimate of GFR is necessary, consider alternative methods of GFR estimation such as a 24-hour urine creatinine clearance. Assignment of CKD stage 1-5 for patients with an eGFR near the transition point between stages may be based on clinical assessment of muscle mass and symptoms in addition to eGFR. Blood 08/29/2022 6:34 AM EDT 08/29/2022 7:09 AM EDT Narrative Resulting Agency Comment Spec In Lab Leti Nguyen MD CHEMISTRY ORDERABLE S Performing Organization Address [facility] Co de Phone Number [facility] [address] * EKG 12 Lead (08/28/2022 3:01 PM EDT) Ventricular rate 52 BPM MUSE SYSTEM Atrial Rate 52 BPM MUSE SYSTEM P-R Interval 138 ms MUSE SYSTEM QRS Duration 90 ms MUSE SYSTEM Q-T Interval 480 ms MUSE SYSTEM QTC Calculated (Bezet) 446 ms MUSE SYSTEM Calculated P [place] 59 degrees MUSE SYSTEM Calculated R [place] 50 degrees MUSE SYSTEM Calculated T [place] 68 degrees MUSE SYSTEM INTERPRETATION Sinus bradycardia with sinus arrhythmia Left ventricular hypertrophy with repolarization abnormality ( Sokolow-Jiménez ) Abnormal ECG When compared with ECG of 07-JUL-2022 09:32, [place] interval has increased T wave inversion less evident in Anterolateral leads Confirmed by MD KESHA, MIGUEL ([id number]) on 08/28/2022 3:40:36 PM MUSE SYSTEM 08/28/2022 3:01 PM EDT 08/28/2022 3:40 PM EDT Leti Nguyen MD ECG ORDERABLES Performing Organization Address [facility] de Phone Number MUSE SYSTEM * CARDIAC CATHETERIZATION (08/28/2022 2:26 PM EDT) Anatomical Region Laterality Modality Other Narrative 08/28/2022 4:37 PM EDT ?[facility] ? Cardiac Catheterization/Intervention Report ? Patient Name: Marco Antonio Xiong. ? Procedure Date: 08/28/2022 ? A #: [id number] ? Primary Physician: Leti Hopper I ? Case #: [id number] ? File Name: [id number] ? Catheterization Order Number: [id number] ? [facility] ? Final Report [place], [place] ? Patient Name: ? Marco Antonio G. Tyrese ?ID#: ?[id number] ? : ?1945 ? Procedure Date: ? August 28, 2022 ? Case #: ? [id number] ? Room: ? 6 ? Case Physician: ? Leti Hopper M.D. ? Start: ?12:08 ?Fellow: ? Luke Long D.O. ?Admission: ??08/28/2022 ? Referring Physician: ??Kadi Lane M.D. ? Procedures: ?* Coronary Angiography ?* Left Heart Catheterization ?* Coronary Ultrasound ?* Coronary Stent Insertion ?* Vascular Ultrasound ? History ?Marco Antonio Xiong is a 76 year old man. The patient's smoking status is ?Former. The patient also has a history of chronic obstructive pulmonary ?disease and cancer. Prior to the initiation of this procedure, the ?patient was designated as ASA Class II. The CSHA clinical frailty scale ?is 3: Managing Well. ? Diagnostic Tests: ?Prior Coronary Angiography: ? LV ejection fraction within 6 months is 39%. ?Electrocardiography: ? EKG was assessed by ECG. EKG was Abnormal. EKG showed other ? abnormality. ?Stress or Imaging Studies: ? A stress test with SPECT imaging was performed on 06/25/2022 and was ? Positive with Intermediate results. ?Medications Prior to Procedure: ? Aspirin, Beta [place] and Statin. ? Indications for Diagnostic Cath: ?The priority of the diagnostic procedure was Elective. The indication for ?the nitriles lab technician visit is worsening angina and suspected CAD. Chest pain ?symptom assessment was: Typical Angina. ? Technique: ?A 6 SLFr sheath was inserted in the right radial artery utilizing the ?Seldinger technique. The left coronary artery was injected utilizing a ?6Fr JL 3.5 catheter. A 6Fr JR 4 catheter was used to inject the right ?coronary artery. Left ventricular pressure was performed utilizing a 6Fr ?JR 4 catheter. Coronary stent insertion was performed and the equipment ?utilized will be described in the intervention summary section. 7,000 ?units of heparin were administered. A total of 250cc of Omnipaque were ?opened, 207cc of Omnipaque were administered and 43cc of Omnipaque were ?wasted. Radiation: Fluoro time was 39.4 minutes, dose area product was ?62,100 mGYcm2 and air kerma was 828 mGY. See the case log for additional ?details. ?The patient received the following medications prior to and during the ?procedure: ? Unfractionated Heparin and Clopidogrel. ? Hemodynamics: ?Left Heart Pressures ? Resting: ? Syst Diast ? EDP ?a ?v ? m ?Ao 149 ?? 58 ?89 ?LV 149 ? 15 ? Coronary Angiography: ?Dominance: Right ?Left Main ? There was a 50% single discrete stenosis of the ostial segment of ? the left main artery. ??The left main was large. ?Left Anterior Descending ? There was mild diffuse (<=25% stenosis) disease of the distal ? segment of the left anterior descending artery (LAD). ??The LAD was ? moderate in size. ??The mid 1 segment of the LAD had 99% stenosis. ? There also was an 80% long segmental stenosis of the mid 2 segment ? of the LAD. ? There was a 99% single discrete stenosis of the ostial segment of ? the first diagonal branch (Diagonal 1) of the LAD. ??The Diagonal 1 ? was moderate in size. ?Left Circumflex ? There was mild diffuse (<=25% stenosis) disease of the mid segment ? of the left circumflex artery (LCX). ??The LCX was moderate in size. ?Right Coronary Artery ? There was a 30% single discrete stenosis of the proximal segment of ? the right coronary artery (RCA). ??The RCA was moderate in size. ??The ? mid segment of the RCA had mild diffuse (<=25% stenosis) disease. ? There was a single discrete total occlusion of the distal segment of ? the right posterior descending branch (RPDA) of the RCA. ??The RPDA ? was moderate in size. ??Distal flow was via collaterals from the LAD ? and collaterals from the LCX. ? Intravascular Imaging/Physiology: ?Intravascular Ultrasound was performed in the mid 1 LAD using a 6 Fr EBU ?3.5 guiding catheter and a 3.[address] [place] [address] ??20 Mhz using ?auto 1 mm/sec pullback. ??Imaging was successful. ??Image quality was good. ? The mid 1 LAD showed moderate diffuse atherosclerotic plaque. ?Measurements were performed after pre-dilation. ?Post Intervention: The stent was well expanded and apposed. ?Intravascular Ultrasound was performed in the mid 2 LAD using a 6 Fr EBU ?3.5 guiding catheter and a 3.5 Fr [place] [facility] [address] ??20 Mhz using ?auto 1 mm/sec pullback. ??Imaging was successful. ??Image quality was good. ? The mid 2 LAD showed moderate diffuse atherosclerotic plaque. ?Measurements were performed after pre-dilation. ?Post Intervention: The stent was well expanded and apposed. ? Indication for Intervention: ?Coronary intervention was indicated for treatment of stable angina. The ?priority for the procedure was Elective. The NCDR indication for the ?procedure was Stable angina. LVEF within one week was 39%. Syntax Score ?was Intermediate. ? Intervention Summary: ?Left Anterior Descending Artery ? Mid 1 99% ? Stent insertion was performed on the 99% stenosis in the mid 1 ? segment of the LAD. This was a de nomi lesion. According to ? the ACC/AHA classification system, this lesion was a type B2 ? moderate risk lesion. Primary prevention of restenosis was the ? indication for stent insertion. This was the culprit lesion. A ? guidewire was placed across this lesion. Vessel flow pre ? intervention was CHADWICK 3. Lesion length was 19mm. ? Stent insertion was accomplished through a 6 Fr. EBU 3.5 ? guide. ??The lesion was predilated with a 2.00mm EUPHORA 15 MM ? . ??A premounted 2.75 x 22 mm [place] (CLAUDIA) was deployed ? with a maximum inflation pressure of 12 atmospheres. ? Following stent deployment, the lesion was dilated using a ? 2.75mm NC EUPHORA 20 MM balloon with a maximum inflation ? pressure of 14 atmospheres. ? The final outcome was defined as successful. There was no ? residual stenosis following this intervention. The final CHADWICK ? flow was 3. ? Mid 2 80% ? Stent insertion was performed on the 80% stenosis in the mid 2 ? segment of the LAD. This was a de nomi lesion. This lesion was ? designated a type B2 moderate risk lesion based on ACC/AHA ? classification system. Primary prevention of restenosis was ? the indication for stent insertion. This was the culprit ? lesion. A guidewire was placed across this lesion. Vessel flow ? pre intervention was CHADWICK 3. Lesion length was 16mm. ? Stent insertion was accomplished through a 6 Fr. EBU 3.5 ? guide. ??The lesion was predilated with a 2.00mm EUPHORA 15 MM ? balloon with a maximum inflation pressure of 14 atmospheres. ? A premounted 2.50 x 38 mm [place] (CLAUDIA) was deployed ? with a maximum inflation pressure of 12 atmospheres. ? Following stent deployment, the lesion was dilated using a ? 2.75mm NC EUPHORA 20 MM balloon with a maximum inflation ? pressure of 14 atmospheres. ? The final outcome was defined as successful. There was no ? residual stenosis following this intervention. The final CHADWICK ? flow was 3. ? Vascular Access: ?Vascular Access Management: ? Mechanical Compression of the right radial artery access site was ? performed. ? TR band. ? Dual Antiplatelet (DAPT) Recommendations: ?Drug eluting stent (CLAUDIA) inserted for stable ischemic heart disease ?(SIHD). ?P2Y12 Loading dose Clopidogrel 600 mg PO given in lab. ?Recommended anti-platelet/anti-thrombotic regimen: ?Start aspirin 81 mg daily now. ?Start clopidogrel 75 mg daily now. ?These recommendations are made at the time of the intervention. Patient ?and provider preferences or a changing clinical situation may require ?modification of this regimen. Consult [facility] Interventional Cardiology for ?questions. ? Conclusions: ?* Significant stenosis of the left main ?* Two vessel coronary artery disease (LAD and RCA) ?* Successful stent insertion of the mid 1 LAD lesion ?* Successful stent insertion of the mid 2 LAD lesion ?* See Dual Antiplatelet (DAPT) Recommendations above ?* -Successful PCI of the mid LAD with 2 overlapping CLAUDIA ?* -Residual 50% ostial LM stenosis, by IVUS has a MLA of 6.8mm2 ?suggesting a non-hemodynamically significant stenosis. ? Complications/Events: ?The patient had no complications during these procedures. ? Post Procedure Fluid Recommendations: ?IV fluid at 316 mL/hr for 2 hours for a total of 632 mL. These ?recommendations are made at the time of the procedure. Patient and ?provider preferences or a changing clinical situation may require ?modification of this regimen. ?The attending physician was present for the entire procedure. ?Dr. Leti Hopper M.D. was present during the moderate sedation ?intraservice time as documented by the sedation nurse. ??Case time = 02:08. ?Dr. Leti Hopper M.D. performed the coronary angiography, left heart ?catheterization, IVUS # coronary, stent insertion-coronary and vascular ?ultrasound. ? Leti Hopper M.D. ? Electronically Signed by: Leti Hopper M.D. ? Report Finalized: 08/28/2022 ??16:31 ? Report Last Ammended: 08/31/2022 ??09:37 ? Leti Nguyen MD CARDIAC CATH ORDERA BLES * Differential, Automated (08/28/2022 10:50 AM EDT) Neutrophil % 63.1 % [facility] Neutrophil Absolute 3.84 1.70 - 6.10 x10(3)/[facility] Lymph % 19.0 % [facility] Lymphocytes Abs 1.2 0.9 - 3.2 x10(3)/[facility] Monocyte % 14.3 % [facility] Monocyte Abs 0.9 0.3 - 0.9 x10(3)/[facility] Eos % 2.6 % [facility] Eosinophils Abs 0.2 0.0 - 0.4 x10(3)/[facility] Basophil % 0.7 % [facility] Baso Absolute 0.0 0.0 - 0.1 x10(3)/[facility] Immature Gran % 0.30 % [facility] Comment: Immature granulocytes(IG's)percentage and absolute count will include metamyelocytes, myelocytes, and promyelocytes. Blood smears from CBCs yielding IG's will be scanned manually for concordance. If this scan disagrees with the automated IG or if promyelocytes are noted, a manual differential will be performed. Immature Gran Absolute 0.02 0.00 - 0.04 x10(3)/[facility] Blood 08/28/2022 10:5 0 AM EDT 08/28/2022 10:56 AM EDT Narrative Resulting Agency Comment Spec In Lab Leti Nguyen MD HEMATOLOGY ORDERABL ES [facility] [place] [address] * (ABNORMAL) Hemogram (08/28/2022 10:50 AM EDT) White Blood Cell 6.1 4.0 - 9.5 x10(3)/mc L [facility] Red Blood Cell 3.90(L) 4.58 - 5.54 x10(6)/mc L [facility] Hemoglobin 12.5(L) 13.7 - 16.5 g/dL [facility] Hematocrit 37.3(L) 40.5 - 48.5 % [facility] Mean Cell Volume 95.6(H) 82.9 - 93.1 fL [facility] Mean Cell Hemoglobin 32.1 27.5 - 32.1 pg [facility] Mean Cell Hemoglobin Concentration 33.5 32.0 - 35.7 g/dL [facility] Platelet 245 145 - 357 x10(3)/mc L [facility] RDW Standard Deviation 46.3(H) 36.0 - 45.[address] [facility] RDW coefficient of variation 13.2 11.4 - 13.8 % [facility] Mean Platelet Volume 8.8 7.6 - 12.[address] [facility] NRBC% auto 0.0 % [facility] NRBC Absolute 0.000 0.000 - 0.000 x10(3)/mc L [facility] Blood 08/28/2022 10:5 0 AM EDT 08/28/2022 10:56 AM EDT Narrative Resulting Agency Comment Spec In Lab Leti Nguyen MD HEMATOLOGY ORDERABL ES Performing Organization Address City/State/[facility] Co de Phone Number [facility] [address] * (ABNORMAL) BMP w/fasting Glucose (08/28/2022 10:50 AM EDT) Glucose Fasting 104(H) 65 - 99 mg/dL [facility] Comment: ?Fasting* Glucose Interpretive Criteria Normal ?65-99 mg/dL Impaired Fasting glucose ?100-125 mg/dL Consistent with Diabetes Mellitus ? >or= 126 mg/dL *Fasting is defined as no caloric intake for at least 8 hours In the absence of unequivocal hyperglycemia a plasma glucose value of >or= 126 mg/dL should be repeated on a subsequent day. Diagnosis and Classification of Diabetes Mellitus, Position Statement from the [place] [employer]. ??Diabetes Care, Volume 33, Supplement 1, May 2009 Blood Urea Nitrogen 15 10 - 20 mg/dL [facility] Creatinine 0.81 0.80 - 1.50 mg/dL [facility] Sodium 140 135 - 145 mmol/L [facility] Potassium 4.6 3.5 - 5.0 mmol/L [facility] Comment: Please note: ??Patients with WBC >100,000 may have falsely elevated Potassium levels. ??For accurate Potassium quantification in these patients send serum separator tube (gold top) for subsequent determinations. ??Contact the Clinical Chemistry Laboratory if there are any questions. Chloride 102 98 - 107 mmol/L [facility] Carbon Dioxide 29 22 - 31 mmol/L [facility] Anion Gap 9 5 - 15 mmol/L [facility] Calcium 9.6 8.5 - 10.5 mg/dL [facility] Est Glomerular Filtration Rate 90 >=60 mL/min/1. 73 m?? [facility] Comment: This patient's estimated GFR was calculated using the 2020 CKD-EPI equation. The estimated GFR can vary from the measured GFR by up to 30% in the absence of rapidly changing kidney function. Assessment of the estimated GFR is not appropriate when creatinine concentrations are rapidly changing. For clinical situations in which a more precise estimate of GFR is necessary, consider alternative methods of GFR estimation such as a 24-hour urine creatinine clearance. Assignment of CKD stage 1-5 for patients with an eGFR near the transition point between stages may be based on clinical assessment of muscle mass and symptoms in addition to eGFR. Blood 08/28/2022 10:5 0 AM EDT 08/28/2022 10:56 AM EDT Narrative Resulting Agency Comment Spec In Lab Leti Nguyen MD CHEMISTRY ORDERABLE S Performing Organization Address City/State/[facility] Co de Phone Number [facility] [address] documented in this encounter Visit Diagnoses Diagnosis CAD (coronary artery disease)- Primary Coronary atherosclerosis of unspecified type of vessel, [place] or graft Chest pain, unspecified type Coronary artery disease, unspecified vessel or lesion type, unspecified whether angina present, unspecified whether [place] or transplanted heart Chest pain, unspecified type documented in this encounter Admitting Diagnoses Diagnosis CAD (coronary artery disease) Coronary atherosclerosis of unspecified type of vessel, [place] or graft documented in this encounter Administered Medications Inactive Administered Medications - up to 3 most recent administrations Medication Order MAR Action Action Date Dose Rate Site aspirin EC tablet 81 mg 81 mg, Oral, DAILY, First dose on 08/29/22 at 0900, Until Discontinued, Recovery (Recovery-Hospital Unit), Routine Given 08/29/2022 8:54 AM EDT 81 mg atorvastatin (Lipitor) tablet 40 mg 40 mg, Oral, DAILY, 2 doses, First dose on Wed08/28/22 at 2100, Last dose on Wed08/30/22 at 0900, Routine Given 08/29/2022 8:54 AM EDT 40 mg Given 08/28/2022 8:26 PM EDT 40 mg clopidogreL (Plavix) tablet 75 mg 75 mg, Oral, DAILY, First dose on 08/29/22 at 0900, Until Discontinued, Recovery (Recovery-Hospital Unit), Routine Given 08/29/2022 8:55 AM EDT 75 mg metoprolol succinate XL (Toprol-XL) tablet 12.5 mg 12.5 mg, Oral, DAILY, First dose on 08/29/22 at 0900, Until Discontinued, DO NOT CRUSH OR OPEN, Routine Given 08/29/2022 8:54 AM EDT 12.5 mg sodium chloride 0.9% infusion 200 mL/hr, Intravenous, CONTINUOUS, Starting on Wed08/28/22 at 1515, Until Wed08/28/22 at 1914, Recovery (Recovery-Hospital Unit) Continued Bag 08/28/2022 4:24 PM EDT 200 mL/hr 200 mL/hr New Bag 08/28/2022 3:00 PM EDT 200 mL/hr 200 mL/hr documented in this encounter Active and Recently Administered Medications Times are shown in EDT. Scheduled Medication Order 08/27/2022 08/28/2022 08/29/2022 aspirin EC tablet 81 mg 81 mg, Oral, DAILY, First dose on 08/29/22 at 0900, Until Discontinued, Recovery (Recovery-Hospital Unit), Routine 0854 (Given - Provid er: Travis Solorio RN) atorvastatin (Lipitor) tablet 40 mg (COMPLETED) 40 mg, Oral, DAILY, 2 doses, First dose on Wed08/28/22 at 2100, Last dose on Wed08/30/22 at 0900, Routine 2025 (Given - Provider: Joshua Aguiar RN) 0854 (Given - Provider: Travis Solorio, RN - Comment: normally takes in Am) clopidogreL (Plavix) tablet 75 mg 75 mg, Oral, DAILY, First dose on 08/29/22 at 0900, Until Discontinued, Recovery (Recovery-Hospital Unit), Routine 0855 (Given - Provid er: Travis Solorio RN) metoprolol succinate XL (Toprol-XL) tablet 12.5 mg 12.5 mg, Oral, DAILY, First dose on Wed08/29/22 at 0900, Until Discontinued, DO NOT CRUSH OR OPEN, Routine 0854 (Given - Provid er: Travis Solorio RN) Continuous Medication Order 08/27/2022 08/28/2022 08/29/2022 sodium chloride 0.9% infusion () 200 mL/hr, Intravenous, CONTINUOUS, Starting on Wed08/28/22 at 1515, Until Wed08/28/22 at 1914, Recovery (Recovery-Hospital Unit) 1500 (New Bag - Provider: Cecilia Nassar RN)1624 (Continued Bag - Provider: Travis Solorio RN) PRN Medication Order 08/27/2022 08/28/2022 08/29/2022 aspirin chewable tablet (CANCELED) ONCE PRN, Starting on Wed08/28/22 at 1153, Until Wed08/28/22 at 1422, Intra-Operative (Intra-Procedure), Routine 1153 (Given - Provider: Kiley Malik RN) clopidogreL (Plavix) tablet (CANCELED) ONCE PRN, Starting on Wed08/28/22 at 1300, Until Wed08/28/22 at 1422, Intra-Operative (Intra-Procedure), Routine 1300 (Given - Provider: Kiley Mcduffie, SOREN) fentaNYL (pf) (50 mcg/mL) multi-dose injection (CANCELED) ONCE PRN, Starting on Wed08/28/22 at 1211, Until Wed08/28/22 at 1422, Intra-Operative (Intra-Procedure), Routine 1211 (Given - Provider: Kiley Mcduffie, SOREN) heparin (porcine) (1,000 units/mL) injection (CANCELED) ONCE PRN, Starting on Wed08/28/22 at 1231, Until Wed08/28/22 at 1422, Intra-Operative (Intra-Procedure), Routine 1231 (Given - Provider: Kiley Mcduffie RN)1304 (Given - Provider: Kiley Mcduffie RN)1400 (Given - Provider: Trish E Alexsander, RN) iohexoL (Omnipaque) (350 mg/mL) solution (CANCELED) ONCE PRN, Starting on Wed08/28/22 at 1421, Until Wed08/28/22 at 1422, Intra-Operative (Intra-Procedure), Routine 1421 (Given - Provider: Carlitos Nguyen MD) midazolam (pf) (Versed) (1 mg/mL) multi-dose injection (CANCELED) ONCE PRN, Starting on Wed08/28/22 at 1211, Until Wed08/28/22 at 1422, Intra-Operative (Intra-Procedure), Routine 1211 (Given - Provider: Kiley Mcduffie RN) nitroGLYcerin 100 mcg/mL intracoronary dilution (CANCELED) ONCE PRN, Starting on Wed08/28/22 at 1225, Until Wed08/28/22 at 1422, Intra-Operative (Intra-Procedure), Routine 1225 (Given - Provider: Luke Long DO)1404 (Given - Provider: Luke Long DO) verapamiL (Isoptin) (2.5 mg/mL) injection (CANCELED) ONCE PRN, Starting on Wed08/28/22 at 1226, Until Wed08/28/22 at 1422, Administer over 2 Minutes, Intra-Operative (Intra-Procedure) 1226 (Given - Provider: Luke Long DO) documented in this encounter Care Teams Handle Machine Operator Relationship Specialty Start Date End Date Kadi Lane PA [address] [place] [address] PCP - General Family Medicine 07/28/16 documented as of this encounter
--- OUTSIDE RECORDS SUMMARY | 2024-06-20 01:27 | XMS_ITS | Encounter Summary ---
Author Organization [facility] [address] Care Team Providers Care Yard Switch Operator Name Role Phone Kadi Lane Primary Care Provider [phone] Encounter Details Date Type Department Care Team (Latest Contact Info) Description 10/19/2022 Travel Social History Tobacco Use Types Packs/Day Years Used Date Smoking Tobacco: Former Cigarettes 2 32 1 956 - 0003 Smokeless Tobacco: Former Alcohol Use Standard Drinks/Week [...] AM EST Office Visit Hematology/Oncology at [address] [phone] Lia Barber [address] HEMATOLOGY AND ONCOLOGY [place], [place] [address] 06/20/2024 10:30 AM EST Infusion Hematology Oncology at [address] [phone] 07/04/2024 11:00 AM EST Office Visit Hematology/Oncology at [address] [phone] HEMATOLOGY AND ONCOLOGY [place], [place] [address] 07/04/2024 11:30 AM EST Infusion Hematology Oncology at [address] [phone] documented as of this encounter Visit Diagnoses Not on filedocumented in this encounter Care Teams Yard Switch Operator Relationship Specialty Start Date End Date Kadi Lane PA [address] [place] [address] PCP - General Family Medicine 07/28/16 documented as of this encounter
--- OUTSIDE RECORDS SUMMARY | 2024-06-20 01:27 | XMS_ITS | Encounter Summary ---
Author Organization [facility] [place] [address] Care Team Providers Care Photo Producer Name Role Phone Kadi Lane Primary Care Provider [phone] Encounter Details Date Type Department Care Team (Latest Contact Info) Description 09/23/2022 Travel Social History Tobacco Use Types Packs/Day Years Used Date Smoking Tobacco: Former Cigarettes 2 32 1 956 - 7555 Smokeless Tobacco: Former Alcohol Use Standard Drinks/Week [...] AM EST Office Visit Hematology/Oncology at [address] [phone] Lia Barber [address] HEMATOLOGY AND ONCOLOGY [place], [place] [address] 06/20/2024 10:30 AM EST Infusion Hematology Oncology at [address] [phone] 07/04/2024 11:00 AM EST Office Visit Hematology/Oncology at [address] [phone] HEMATOLOGY AND ONCOLOGY [place], [place] [address] 07/04/2024 11:30 AM EST Infusion Hematology Oncology at [address] [phone] documented as of this encounter Visit Diagnoses Not on filedocumented in this encounter Care Teams Photo Producer Relationship Specialty Start Date End Date Kadi Lane PA [address] [place] [address] PCP - General Family Medicine 07/28/16 documented as of this encounter
--- OUTSIDE RECORDS SUMMARY | 2024-06-20 01:27 | XMS_ITS | Encounter Summary ---
Author Organization [facility] [place] [address] Care Team Providers Care Flame Channeler Name Role Phone Kadi Lane Primary Care Provider [phone] Encounter Details Date Type Department Care Team (Latest Contact Info) Description 02/17/2023 Travel Social History Tobacco Use Types Packs/Day Years Used Date Smoking Tobacco: Former Cigarettes 2 32 1 956 - 6888 Smokeless Tobacco: Former Alcohol Use Standard Drinks/Week [...] AM EST Office Visit Hematology/Oncology at [address] [phone] Lia Barber [address] HEMATOLOGY AND ONCOLOGY [place], [place] [address] 06/20/2024 10:30 AM EST Infusion Hematology Oncology at [address] [phone] 07/04/2024 11:00 AM EST Office Visit Hematology/Oncology at [address] [phone] HEMATOLOGY AND ONCOLOGY [place], [place] [address] 07/04/2024 11:30 AM EST Infusion Hematology Oncology at [address] [phone] documented as of this encounter Visit Diagnoses Not on filedocumented in this encounter Care Teams Flame Channeler Relationship Specialty Start Date End Date Kadi Lane PA [address] [place] [address] PCP - General Family Medicine 07/28/16 documented as of this encounter
--- OUTSIDE RECORDS SUMMARY | 2024-06-20 01:27 | XMS_ITS | Encounter Summary ---
Author Organization [facility] [place] [address] Care Team Providers Care Event Planning Manager Name Role Phone Kadi Lane Primary Care Provider [phone] Encounter Details Date Type Department Care Team (Latest Contact Info) Description 10/07/2022 Travel Social History Tobacco Use Types Packs/Day Years Used Date Smoking Tobacco: Former Cigarettes 2 32 1 956 - 6409 Smokeless Tobacco: Former Alcohol Use Standard Drinks/Week [...] AM EST Office Visit Hematology/Oncology at [address] [phone] Lia Barber [address] HEMATOLOGY AND ONCOLOGY [place], [place] [address] 06/20/2024 10:30 AM EST Infusion Hematology Oncology at [address] [phone] 07/04/2024 11:00 AM EST Office Visit Hematology/Oncology at [address] [phone] HEMATOLOGY AND ONCOLOGY [place], [place] [address] 07/04/2024 11:30 AM EST Infusion Hematology Oncology at [address] [phone] documented as of this encounter Visit Diagnoses Not on filedocumented in this encounter Care Teams Event Planning Manager Relationship Specialty Start Date End Date Kadi Lane PA [address] [place] [address] PCP - General Family Medicine 07/28/16 documented as of this encounter
--- OUTSIDE RECORDS SUMMARY | 2024-06-20 01:27 | XMS_ITS | Encounter Summary ---
[place] [address] Care Team Providers Care Tribal Council Member Name Role Phone Kadi Lane Primary Care Provider Reason for Referral * Diagnostic Test (Routine) - Closed Specialty Diagnoses / Procedures Referred By Contac t Referred To Contact Radiology Diagnoses Non-small cell cancer of right lung Procedures NM PET CT Skull Base to Mid-thigh Zach Vincent MD [facility] DR HEMATOLOGY [place] [address] [place] [address] Referral ID Status Reason Start Date Expiration Date V isits Requested Visits Authorized [id number] Closed Specialty Service Requested 09/02/2022 03/04/2024 1 1 Reason for Visit * Diagnostic Test (Routine) - Closed Specialty Diagnoses / Procedures Referred By Contac t Referred To Contact Radiology Diagnoses Non-small cell cancer of right lung Procedures NM PET CT Skull Base to Mid-thigh Zach Vincent MD [facility] DR HEMATOLOGY [place] [address] [facility] [place] [address] Referral ID Status Reason Start Date Expiration Date V isits Requested Visits Authorized [id number] Closed Specialty Service Requested 09/02/2022 03/04/2024 1 1 Encounter Details Date Type Department Care Team (Late st Contact Info) Description 09/17/2022 11:19 AM EDT - 09/17/2022 11:59 PM EDT Hospital Encounter [place] [address] Zach Vincent MD [facility] DR HEMATOLOGY AND ONCOLOGY [place] [phone] Non-small cell cancer of right lung Discharge [...] 02/09/2022 09/01/2023 documented as of this encounter Plan of Treatment Upcoming Encounters Date Type Department Care Team (Late st Contact Info) Description 06/20/2024 10:00 AM EST Office Visit Hematology/Oncology at [address] [phone] [address] HEMATOLOGY AND ONCOLOGY [place], [place] [id number] 06/20/2024 10:30 AM EST Infusion Hematology Oncology at [address] [phone] 07/04/2024 11:00 AM EST Office Visit Hematology/Oncology at [address] [phone] [address] HEMATOLOGY AND ONCOLOGY [place], [place] [id number] 07/04/2024 11:30 AM EST Infusion Hematology Oncology at [address] [phone] documented as of this encounter Procedures Procedure Name Priority Date/Time Associated Diagnosis Comments NM PET CT SKULL BASE TO MID-THIGH ([facility]) Routine 09/17/2022 2:25 PM EDT Non-small cell cancer of right lung documented in this encounter Results * NM PET CT Skull Base to Mid-thigh (09/17/2022 2:25 PM EDT) Anatomical Region Laterality Modality Positron Emissio n Tomography (PET) Impressions 09/23/2022 1:30 PM EDT 1. ??Interval slight increase in size of known right lower lobe primary lung malignancy. 2. ??Persistent and unchanged small FDG avid bilateral hilar lymph nodes, again favored likely inflammatory/reactive. Continued attention on follow-up. 3. ??No distant metastases. 4. ??Right-sided hydropneumothorax, largely similar to 08/14/2022 chest radiograph. Thank you for letting us participate in the care of this patient. ??If you are a health care provider and have any questions regarding this report, please contact the number below. ??For patients who have questions please contact the health resident care supervisor that requested your imaging first. ? Narrative 09/23/2022 1:30 PM EDT EXAMINATION: NM PET CT STANDARD SKULL BASE TO MID-THIGH CLINICAL HISTORY: Non-small cell lung cancer, staging 76 yo with Stage II node negative lung cancer but due to cardiac issues has not been able to start treatment. ??REstaging PET scan to assess for metastatic spread. TECHNIQUE: Following IV injection of 93-rssxat-6-deoxyglucose (FDG) a standard uptake of approximately 60 minutes, a noncontrast CT scan followed by a PET scan were acquired from the base of the skull to mid thighs. The noncontrast CT was used for anatomic localization and photon attenuation correction of the PET scan. No oral contrast was administered. Blood glucose level: 83 (mg/dL) FDG dose: 9.4 mCi COMPARISON: PET/CT 07/02/2022 PA and lateral radiographs of the chest 08/14/2022 FINDINGS: HEAD/NECK: Normal activity in all soft tissue regions of the neck and visualized lower head. CHEST: Persistent highly FDG avid pleural-based right lower lobe mass, measuring approximately 38 x 56 mm on axial imaging (axial image 94), as compared to approximately 32 x 51 mm by my measurements (axial image 120). Similar small FDG avid bilateral hilar lymph nodes. Right-sided hydropneumothorax, probably not significantly changed from most recent 08/14/2022 chest radiographs. The pneumothorax component is new since the 07/02/2022 CT, and the pleural fluid has also slightly increased. The right pleural effusion is non-FDG avid. Redemonstrated bilateral calcified pleural plaques, aortic and multivessel coronary artery calcifications. ABDOMEN/PELVIS: Normal activity in all soft tissue regions. Redemonstrated hiatal hernia, diffuse calcified atherosclerosis, small ventral fat-containing lower abdominal wall hernia. Colonic diverticulosis without acuity. SKELETON/EXTREMITIES: Redemonstrated diffuse cortical thickening and heterogeneous sclerotic changes involving the left hemipelvis consistent with Paget's disease with associated mild FDG avidity. Normal activity in all other regions of the axial and visualized appendicular skeleton. Procedure Note Lia Escobedo MD - 09/23/2022 EXAMINATION: NM PET CT STANDARD SKULL BASE TO MID-THIGH CLINICAL HISTORY: Non-small cell lung cancer, staging 76 yo with Stage II node negative lung cancer but due to cardiac issueshas not been able to start treatment. REstaging PET scan to assess formetastatic spread. TECHNIQUE: Following IV injection of 27-nyemmm-4-deoxyglucose (FDG) astandard uptake of approximately 60 minutes, a noncontrast CT scan followed by aPET scan were acquired from the base of the skull to mid thighs. The noncontrast CTwas used for anatomic localization and photon attenuation correction of thePET scan. No oral contrast was administered. Blood glucose level: 83 (mg/dL) FDG dose: 9.4 mCi COMPARISON: PET/CT 07/02/2022 PA and lateral radiographs of the chest 08/14/2022 FINDINGS: HEAD/NECK: Normal activity in all soft tissue regions of the neck and visualizedlower head. CHEST: Persistent highly FDG avid pleural-based right lower lobe mass,measuring approximately 38 x 56 mm on axial imaging (axial image 94), as comparedto approximately 32 x 51 mm by my measurements (axial image 120). Similarsmall FDG avid bilateral hilar lymph nodes. Right-sided hydropneumothorax, probably not significantly changed frommost recent 08/14/2022 chest radiographs. The pneumothorax component is newsince the 07/02/2022 CT, and the pleural fluid has also slightly increased. Theright pleural effusion is non-FDG avid. Redemonstrated bilateral calcified pleural plaques, aortic andmultivessel coronary artery calcifications. ABDOMEN/PELVIS: Normal activity in all soft tissue regions. Redemonstrated hiatalhernia, diffuse calcified atherosclerosis, small ventral fat-containing lowerabdominal wall hernia. Colonic diverticulosis without acuity. SKELETON/EXTREMITIES: Redemonstrated diffuse cortical thickening and heterogeneous scleroticchanges involving the left hemipelvis consistent with Paget's disease withassociated mild FDG avidity. Normal activity in all other regions of the axial and visualized appendicular skeleton. IMPRESSION 1. Interval slight increase in size of known right lower lobe primarylung malignancy. 2. Persistent and unchanged small FDG avid bilateral hilar lymph nodes,again favored likely inflammatory/reactive. Continued attention on follow-up. 3. No distant metastases. 4. Right-sided hydropneumothorax, largely similar to 08/14/2022 chest radiograph. Thank you for letting us participate in the care of this patient. If youare a health care provider and have any questions regarding this report,please contact the number below. For patients who have questions please contactthe health resident care supervisor that requested your imaging first. Zach Vincent MD IMG PET ORDERABLES documented in this encounter Visit Diagnoses Diagnosis Non-small cell cancer of right lung documented in this encounter Administered Medications Inactive Administered Medications - up to 3 most recent administrations Medication Order MAR Action Action Date Dose Rate Site fludeoxyglucose (F-18) FDG injection 0-20 mCi 0-20 mCi, Intravenous, ONCE PRN, 1 dose, Starting on Aileen 09/17/22 at 1155, Until Aileen 09/17/22 at 1149, Per Protocol, Radiology Contrast, Routine Given 09/17/2022 11:49 AM EDT 9.4 mCi documented in this encounter Care Teams Tribal Council Member Relationship Specialty Start Date End Date Kadi [place] [address] PCP - General Family Medicine 07/28/16 documented as of this encounter
--- OUTSIDE RECORDS SUMMARY | 2024-06-20 01:27 | XMS_ITS | Encounter Summary ---
[place] [address] Care Team Providers Care Metalsmith Name Role Phone Kadi Lane Primary Care Provider [phone] Reason for Visit * Diagnostic Test (Routine) - Closed Specialty Diagnoses / Procedures Referred By Contmarlys t Referred To Contact Radiology Diagnoses Non-small cell cancer of right lung Procedures NM PET CT Skull Base to Mid-thigh Zach Vincent MD [facility] DR [place] [address] [place] [address] Referral ID Status Reason Start Date Expiration Date V isits Requested Visits Authorized [id number] Closed Specialty Service Requested 09/02/2022 03/04/2024 1 1 Encounter Details Date Type Department Care Team (Late st Contact Info) Description 09/17/2022 11:19 AM EDT - 09/17/2022 11:59 PM EDT Hospital En[place] [address] Zach Vincent MD [facility] [place] [address] Discharge Disposition: Home Social History Tobacco Use [...] AM EST Office Visit Hematology/Oncology at [address] [phone] Lia Barber APRN [address] [place] [address] DR HEMAT[place]Y [place] [address] 06/20/2024 10:30 AM EST Infusion Hematology Oncology at [address] [phone] 07/04/2024 11:00 AM EST Office Visit Hematology/Oncology at [address] [phone] Lia Braber APRN [address] [place] [address] DR HEMATOLOGY AND ONCOLOGY [place], [place] [address] 07/04/2024 11:30 AM EST Infusion Hematology Oncology at [address] [phone] documented as of this encounter Procedures Procedure Name Priority Date/Time Associated Diagnosis Comments NM PET CT SKULL BASE TO MID-THIGH ([facility]) Routine 09/17/2022 2:25 PM EDT Non-small cell cancer of right lung POCT GLUCOSE Routine 09/17/2022 11:42 AM EDT documented in this encounter Results * POCT Glucose (09/17/2022 11:42 AM EDT) Glucose, POC 83 65 - 199 mg/dL [facility] Comment: Supplemental ranges: <140 mg/dL before meals <180 mg/dL all other times of the day Blood 09/17/2022 11:4 2 AM EDT 09/17/2022 11:42 AM EDT Zach Vincent MD POINT OF CARE TEST O RDERABLES [facility] [place] [address] documented in this encounter Visit Diagnoses Not on filedocumented in this encounter Care Teams Metalsmith Relationship Specialty Start Date End Date Kadi Lane PA [address] [place] [address] PCP - General Family Medicine 07/28/16 documented as of this encounter
--- OUTSIDE RECORDS SUMMARY | 2024-06-20 01:27 | XMS_ITS | Encounter Summary ---
Author Organization [facility] Address [facility] [place] [address] Care Team Providers Care Supervisor Brooder Farm Name Role Phone Kadi Lane Primary Care Provider [phone] Reason for Referral * Consultation (Routine) - Closed Specialty Diagnoses / Procedures Referred By Contac t Referred To Contact Diagnoses S/P coronary artery stent placement Leti Hopper MD [facility] [place] [address] Cardiac Rehab, [address] [address] Referral ID Status Reason Start Date Expiration Date V isits Requested Visits Authorized [id number] Closed Consult, Test & Treat 08/31/2022 02/27/2023 36 36 Encounter Details Date Type Department Care Team (Late st Contact Info) Description 08/31/2022 Orders Only Cardiology at [address] [phone] Leti Hopper MD [facility] [place] [address] S/P coronary artery stent placement Social History Tobacco Use Types Packs/Day Years [...] 10:00 AM EST Office Visit Hematology/Oncology at [address] [phone] [place] [address] 06/20/2024 10:30 AM EST Infusion Hematology Oncology at [address] [phone] 07/04/2024 11:00 AM EST Office Visit Hematology/Oncology at [address] [phone] [address] [place] [address] 07/04/2024 11:30 AM EST Infusion Hematology Oncology at [address] [phone] Scheduled Referrals Name Type Priority Associated Diagnoses Orde r Schedule Referral to Cardiac Rehab Outpatient Referral Routine S/P coronary artery stent placement Ordered: 08/31/2022 documented as of this encounter Visit Diagnoses Diagnosis S/P coronary artery stent placement Postsurgical percutaneous transluminal coronary angioplasty status documented in this encounter Care Teams Supervisor Brooder Farm Relationship Specialty Start Date End Date Kadi [place] [address] PCP - General Family Medicine 07/28/16 documented as of this encounter
--- OUTSIDE RECORDS SUMMARY | 2024-06-20 01:27 | XMS_ITS | Encounter Summary ---
Author Organization [facility] [address] Care Team Providers Care Radiologic Technology Teacher Name Role Phone Kadi Lane Primary Care Provider [phone] Encounter Details Date Type Department Care Team (Latest Contact Info) Description 10/15/2022 Travel Social History Tobacco Use Types Packs/Day Years Used Date Smoking Tobacco: Former Cigarettes 2 32 1 956 - 6165 Smokeless Tobacco: Former Alcohol Use Standard Drinks/Week [...] AM EST Office Visit Hematology/Oncology at [address] [phone] Lia Barber [address] HEMATOLOGY AND ONCOLOGY [place], [place] [address] 06/20/2024 10:30 AM EST Infusion Hematology Oncology at [address] [phone] 07/04/2024 11:00 AM EST Office Visit Hematology/Oncology at [address] [phone] HEMATOLOGY AND ONCOLOGY [place], [place] [address] 07/04/2024 11:30 AM EST Infusion Hematology Oncology at [address] [phone] documented as of this encounter Visit Diagnoses Not on filedocumented in this encounter Care Teams Radiologic Technology Teacher Relationship Specialty Start Date End Date Kadi Lane PA [address] [place] [address] PCP - General Family Medicine 07/28/16 documented as of this encounter
--- OUTSIDE RECORDS SUMMARY | 2024-06-20 01:27 | XMS_ITS | Encounter Summary ---
Author Organization [facility] [place] [address] Care Team Providers Care Automotive Center Manager Name Role Phone Kadi Lane Primary Care Provider [phone] Encounter Details Date Type Department Care Team (Late st Contact Info) Description 10/19/2022 Orders Only [place] [address] Rafael Pope MD [facility] [place] [address] Non-small cell cancer of right lung Social [...] AM EST Office Visit Hematology/Oncology at [address] [phone] Lia Barber APRN [address] [place] [address] DR HEMATOLOGY AND ONCOLOGY [place], [place] [address] 06/20/2024 10:30 AM EST Infusion Hematology Oncology at [address] [phone] 07/04/2024 11:00 AM EST Office Visit Hematology/Oncology at [address] [phone] Lia Barber APRN [address] [place] [address] DR HEMATOLOGY AND ONCOLOGY [place], [place] [address] 07/04/2024 11:30 AM EST Infusion Hematology Oncology at [address] [phone] documented as of this encounter Visit Diagnoses Diagnosis Non-small cell cancer of right lung documented in this encounter Care Teams Automotive Center Manager Relationship Specialty Start Date End Date Kadi Lane [place] [address] PCP - General Family Medicine 07/28/16 documented as of this encounter
--- OUTSIDE RECORDS SUMMARY | 2024-06-20 01:27 | XMS_ITS | Encounter Summary ---
Author Organization [facility] [place] [address] Care Team Providers Care Ct Mri Technologist Name Role Phone Kadi Lane Primary Care Provider [phone] Encounter Details Date Type Department Care Team (Late st Contact Info) Description 01/26/2023 Ancillary Procedure Radiology Library at [facility] [place] [phone] Kadi [address] PA [address] [place] [address] Social History Tobacco Use Types Packs/Day Years Used Date Smoking Tobacco: Former Cigarettes 2 32 1 026 - 1987 Smokeless Tobacco: Former Alcohol Use [...] AM EST Office Visit Hematology/Oncology at [address] [phone] Lia Barber APRN [address] [place] [address] DR HEMATOLOGY AND ONCOLOGY [place], [place] [address] 06/20/2024 10:30 AM EST Infusion Hematology Oncology at [address] [phone] 07/04/2024 11:00 AM EST Office Visit Hematology/Oncology at [address] [phone] Lia Barber APRN [address] [place] [address] DR HEMATOLOGY AND ONCOLOGY [place], [place] [phone] 07/04/2024 11:30 AM EST Infusion Hematology Oncology at [address] [phone] documented as of this encounter Procedures Procedure Name Priority Date/Time Associated Diagnosis Comments FILM LIBRARY STORAGE ONLY CT CHEST Routine 01/26/2023 12:00 AM EDT documented in this encounter Results * Film Library- Storage Only CT Chest (01/26/2023 12:00 AM EDT) Narrative [facility] - 02/17/2023 12:55 PM EDT This exam is auto-finalizing. It's purpose is for storage only. Kadi [place] G FILM LIBRARY ORD ERABLES Performing Organization Address City/State/[facility] Co de Phone Number [place], [place] documented in this encounter Visit Diagnoses Not on filedocumented in this encounter Care Teams Ct Mri Technologist Relationship Specialty Start Date End Date Kadi Lane PA [address] [place] [address] PCP - General Family Medicine 07/28/16 documented as of this encounter
--- OUTSIDE RECORDS SUMMARY | 2024-06-20 01:27 | XMS_ITS | Encounter Summary ---
Author Organization Formerly [facility] [place] [address] Care Team Providers Care Card Player Name Role Phone Kadi Lane Primary Care Provider [phone] Encounter Details Date Type Department Care Team (Late st Contact Info) Description 02/17/2023 1:00 PM EDT Office Visit Radiation Oncology at [address] [phone] Rafael Pope MD [facility] [place] [address] Non-small cell cancer of right lung Social [...] Sign Reading Time Taken Comments Blood Pressure 138/54 02/17/2023 1:12 PM EDT Pulse 60 02/17/2023 1:12 PM EDT Temperature 36.6 ??C (97.9 ??F) 02/17/2023 1:12 PM ED T Respiratory Rate 20 02/17/2023 1:12 PM EDT Oxygen Saturation 96% 02/17/2023 1:12 PM EDT Inhaled Oxygen Concentration - - Weight 62.2 kg (137 lb 3.2 oz) 02/17/2023 1:12 P M EDT Height - - Body Mass Index 22.14 10/07/2022 3:12 PM EDT documented in this encounter Progress Notes * Rafael Pope MD - 02/17/2023 1:00 PM EDT Images from the original note were not included. 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 TREATMENT DETAILS Treatment Intent Curative Site Treated Lung Primary Technique VMAT, SBRT Adaptive Plan Required No Concurrent Chemo No Clinical Trial No TECHNICAL DETAILS Total Dose: 50 Gy / 5 fractions PLAN IMAGES Post-Treatment Course: CT chest w/ contrast 01/26/23: Time from RT completion: ~ 3 months Interval History: Currently, he has the following symptoms: Symptom Description Intervention Pain Left sided chest pain with activity, new over past three months Pulmonary No dyspnea at rest, most with moderate activity Cough Denies Nutrition Issues / Weight Loss No issues Smoking Status Denies Other No Issues I have personally reviewed the imaging studies referenced above. 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 We discussed that he is still at risk of recurrence and requires continued surveillance 2. Toxicity: Baseline dyspnea. He has noted some left sided chest pain associated with activity. I asked him to see his PCP to discuss possible cardiac etiologies, and he agreed Dental Care: Thyroid: Plan: [address] chest Thank you for allowing me to participate in the care of Marco Antonio Xiong. RAFAEL POPE MD New Orders: No orders of the defined types were placed in this encounter. National Cancer [place] (NCI) [facility] [employer] Commission on Cancer (ACS Jorge) Accredited Cancer Program [employer] (ACR) Accredited Radiation Oncology Program documented in this encounter Plan of Treatment Upcoming Encounters Date Type Department Care Team (Late st Contact Info) Description 06/20/2024 10:00 AM EST Office Visit Hematology/Oncology at [address] [phone] [address] [place] [address] 06/20/2024 10:30 AM EST Infusion Hematology Oncology at [address] [phone] 07/04/2024 11:00 AM EST Office Visit Hematology/Oncology at [address] [phone] [place] [address] 07/04/2024 11:30 AM EST Infusion Hematology Oncology at [address] [phone] documented as of this encounter Visit Diagnoses Diagnosis Non-small cell cancer of right lung documented in this encounter Care Teams Card Player Relationship Specialty Start Date End Date Kadi Lane PA [address] [place] [address] PCP - General Family Medicine 07/28/16 documented as of this encounter
--- OUTSIDE RECORDS SUMMARY | 2024-06-20 01:27 | XMS_ITS | Encounter Summary ---
[place] [address] Care Team Providers Care Rd Project Manager Name Role Phone Kadi Lane Primary Care Provider Reason for Referral * Consultation (Routine) - Closed Specialty Diagnoses / Procedures Referred By Contmarlys bowers Referred To Contact Radiation Oncology Diagnoses Non-small cell lung cancer, unspecified laterality Procedures Simulation for Radiation Therapy Planning Rafael Pope MD [facility] [place] [address] [facility] Rad Onc Office [address] [place] [phone] Referral ID Status Reason Start Date Expiration Date V isits Requested Visits Authorized [id number] Closed Consult, Test & Treat 09/22/2022 09/22/2023 1 1 Encounter Details Date Type Department Care Team (Late st Contact Info) Description 09/22/2022 Orders Only [place] [phone] Rafael Pope MD [facility] [place] [address] Non-small cell lung cancer, unspecified laterality Social History Tobacco Use Types Packs/Day Years [...] AM EST Office Visit Hematology/Oncology at [address] [phone] HEMATOLOGY [place] [address] 06/20/2024 10:30 AM EST Infusion Hematology Oncology at [address] [phone] 07/04/2024 11:00 AM EST Office Visit Hematology/Oncology at [address] [phone] [address] HEMATOLOGY [place] [address] 07/04/2024 11:30 AM EST Infusion Hematology Oncology at [address] [phone] Scheduled Orders Name Type Priority Associated Diagnoses Orde r Schedule Simulation for Radiation Therapy Planning Procedures Routine Non-small cell lung cancer, unspecified laterality Ordered: 09/22/2022 documented as of this encounter Visit Diagnoses Diagnosis Non-small cell lung cancer, unspecified laterality documented in this encounter Care Teams Rd Project Manager Relationship Specialty Start Date End Date Kadi Lane PA [address] [place] [address] PCP - General Family Medicine 07/28/16 documented as of this encounter
--- OUTSIDE RECORDS SUMMARY | 2024-06-20 01:27 | XMS_ITS | Encounter Summary ---
Author Organization [facility] [place] [address] Care Team Providers Care Bone Process Operator Name Role Phone Kadi Lane Primary Care Provider [phone] Encounter Details Date Type Department Care Team (Late st Contact Info) Description 09/23/2022 12:30 PM EDT Office Visit Radiation Oncology at [address] [phone] Rafael Pope MD [facility] [place] [address] Non-small cell lung cancer, unspecified laterality Social History Tobacco Use Types Packs/Day Years Used Date Smoking Tobacco: Former Cigarettes 2 32 1 136 - 2562 Smokeless Tobacco: Former Alcohol Use Standard Drinks/Week Comments Not Currently 0 (1 standard drink = 0.6 oz pur e alcohol) Overall Financial Resource Strain (CARDIA) Girishe r Date Recorded How hard is it [...] Sign Reading Time Taken Comments Blood Pressure 134/58 09/23/2022 11:57 AM EDT Pulse 53 09/23/2022 11:57 AM EDT Temperature 36.9 ??C (98.4 ??F) 09/23/2022 1 1:57 AM EDT Respiratory Rate 16 09/23/2022 11:5 7 AM EDT Oxygen Saturation 99% 09/23/2022 11: 57 AM EDT Inhaled Oxygen Concentration - - Weight 64.3 kg (141 lb 12.8 oz) 023 11:57 AM EDT with shoes Height - - Body Mass Index 23.51 08/28/2022 11:06 AM EDT documented in this encounter Progress Notes * Paige Christian RN - 09/23/2022 12:30 PM EDT Section of Radiation Oncology Contrast Information Safety Questions 1. Has the patient ever had an x-ray study before which involved injection of a contrast agent or x-ray dye? Yes If yes, did the patient have any reaction to the injection? No If yes, please describe the reaction: 2. Is the patient allergic to any foods, medicines, or other substances? No No Known Allergies 3. Has the patient received any contrast within the past 24 hours? No 4. Does the patient have any procedures scheduled in the next 24 hours? No 5. Does the patient have a history of renal/kidney problems or kidney surgery? No 6. Does the patient have diabetes? No 7. Does the patient have high blood pressure? NO. CAD 8. Is the patient currently being treated for gout? No 9. If the answer to any of the questions #5-8 was yes, has the patient had a creatinine level and eGFR drawn within the past 30 days? Yes Lab Results Component Value Date CREATININE 0.77 (L) 08/29/2022 If no, when will it be drawn? A creatinine less than or equal to 1.6 and a eGFR of 45 or greater OK to proceed with IV contrast. If the [...] Kombiglyze, Metaglip, PrandiMet, Glugophage, Glumetza, Riomet, Metformin) No If yes, when was last dose taken? 9. If patient is on any of the medications in question #10, consult with the ordering provider if the patient needs to stop the medication and if they will require further lab studies. * Rafael Pope MD - 09/23/2022 12:30 PM EDT Images from the original note were not included. 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 CT simulation was performed withthe following parameters: Simulation for radiation therapy planning was performed in the radiation oncology department. The technical details of the simulation are available in the radiation oncology EMR ([employer]) upon request. IV Contrast Yes Notes: Start date TBD Procedure: I was personally present/supervising for the critical portions of the procedure. RAFAEL POPE MD ??? National Cancer [place] (NCI) Comprehensive Cancer [facility] ??? [employer] Commission on Cancer (ACS Jorge) Accredited Cancer Program ??? [employer] (ACR) Accredited Radiation Oncology Program documented in this encounter Plan of Treatment Upcoming Encounters Date Type Department Care Team (Late st Contact Info) Description 06/20/2024 10:00 AM EST Office Visit Hematology/Oncology at [address] [phone] HEMATOLOGY AND ONCOLOGY [place], [place] [phone] 06/20/2024 10:30 AM EST Infusion Hematology Oncology at [address] [phone] 07/04/2024 11:00 AM EST Office Visit Hematology/Oncology at [address] [phone] HEMATOLOGY AND ONCOLOGY [place], [place] [address] 07/04/2024 11:30 AM EST Infusion Hematology Oncology at [address] [phone] documented as of this encounter Visit Diagnoses Diagnosis Non-small cell lung cancer, unspecified laterality documented in this encounter Care Teams Bone Process Operator Relationship Specialty Start Date End Date Kadi Lane PA [address] [place] [address] PCP - General Family Medicine 07/28/16 documented as of this encounter
--- OUTSIDE RECORDS SUMMARY | 2024-06-20 01:27 | XMS_ITS | Encounter Summary ---
Author Organization [facility] [place] [address] Care Team Providers Care Retail Advertising Executive Name Role Phone Kadi Lane Primary Care Provider [phone] Encounter Details Date Type Department Care Team (Latest Contact Info) Description 10/07/2022 3:30 PM EDT Procedure visit Radiation Oncology at [address] [phone] Rafael Pope MD [facility] [place] [address] Non-small cell lung cancer, unspecified laterality Social History Tobacco Use Types Packs/Day Years Used Date Smoking Tobacco: Former Cigarettes 2 32 1 956 - 7291 Smokeless Tobacco: Former Alcohol Use Standard Drinks/Week [...] Sign Reading Time Taken Comments Blood Pressure 143/64 10/07/2022 3:12 PM EDT Pulse 50 10/07/2022 3:12 PM EDT Temperature 36.6 ??C (97.9 ??F) 10/07/2022 3:12 PM ED T Respiratory Rate 18 10/07/2022 3:12 PM EDT Oxygen Saturation 99% 10/07/2022 3:12 PM EDT Inhaled Oxygen Concentration - - Weight 65.3 kg (143 lb 14.4 oz) 10/07/2022 3:12 PM EDT Height 167.6 cm (5' 6) 10/07/2022 3:12 PM EDT Body Mass Index 23.23 10/07/2022 3:12 PM EDT documented in this encounter Progress Notes * Rafael Pope MD - 10/07/2022 3:30 PM EDT Images from the original note were not included. 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 Marco Antonio Xiong is a 76 y.o. male with a PMH of asbestos exposure, CVA in 2006 (on ASA), COPD, malignant hyperthermia, GERD, cigarette use (40 PY, quit 40 years prior), presented to an ED on 12/19/21 after an ~ 15 lb weight loss, abdominal pain, and diarrhea. He was found to have a chronic pleuropulmonary process on workup, and followed up with his PCP. Imaging revealed a posterior right lower lobe mass, along with a right sided pleural effusion (known since 2017). PET scan revealed avidity of this nodule. He was seen by Dr. Goodman on 02/13/22. At that time, mediastinal evaluation was recommended, and he underwent bronchoscopy and biopsy with Dr. Moseley. ?? Staging & Therapy ? PET-CT (01/30/22): 1. ??4.3 cm FDG avid pleural-based mass in the posterior right lower lobe, highly suspicious for primary lung malignancy. 2. ??Small FDG avid right hilar adenopathy, suspicious for joey metastasis. 3. ??Non-FDG avid moderate-sized right pleural effusion, unchanged compared to remote PET/CT of 08/21/2016. 4. ??Small FDG avid left hilar lymph node is unchanged compared to remote PET/CT of 08/21/2016 and favored to represent a benign reactive node. 5. ??No distant sites of metastasis. 6. ??Mildly FDG avid sclerotic changes and diffuse cortical thickening in the left hemipelvis, sparing the sacrum, unchanged from PET/CT of 08/21/2016 and consistent with Paget's disease. 7. ??Partially visualized area of encephalomalacia in the right temporoparietal region, consistent with prior infarct. ?? Right ultrasound guided thoracentesis, Bronchoscopy with EBUS-Guided Transbronchial Needle Aspiration, robotic and radial EBUS / fluoro??guided??TBNA, TBBx, BAL, therapeutic aspiration of secretions 02/23/22: -Findings: ??The trachea, bilateral mainstem bronchi, and the bilateral segmental bronchi were all visualized and no obvious endobronchial lesions were noted. The [employer] robotic system was then usedfor intra-procedure navigation to the RLL nodule. ??Under radial EBUS and fluoro control TBNA, TBBxand BAL??were obtained. ??The robotic bronchoscope was removed and the EBUS scope inserted. EBUS confirmed the presence of an enlarged node at station 11R, there were no other joey stations with nodes > 5mm. -Path: --Lung, right lower lobe (Navigation-guided tissue biopsy and touch imprint cytology): Respiratory epithelial cells and a minute fragment of bronchial/respiratory epithelial mucosa with focal chronicinflammation and denuded epithelium. No overtly cytologically malignant cells seen; the material might not be customer support representative of the target lesion. --Lung: right lower lobe (bronchial alveolar lavage) - Respiratory epithelial cells, neutrophils, macrophages, a few eosinophils, and debris present. --Lymph node, 11R (EBUS-guided FNA): Scant fragments of lymphoid tissue are present, consistent with focal lymph node sampling. No overtly cytologically malignant cells seen. --Lung, right lower lobe (Navigation-guided FNA): Predominantly ciliated respiratory epithelial cells and blood. The material might not be customer support representative of the target lesion. --Pleural fluid (thoracentesis): The sample consists almost entirely of abundant, amorphous/acellular material. No malignant cells are seen. ?? CT Chest no contrast 02/23/22: 1. ??Stable pleural-based mass at the right lung base. 2. ??Stable moderate right pleural effusion with thick peripheral rind. 3. ??Stable calcified bilateral pleural plaques, consistent with asbestos related pleural disease. ?? CT HN w/ contrast 02/25/22: 1.??Bulky left sided hypopharyngeal mass with both mucosal and submucosal components. This mass is not evident on the PET/CT from one month earlier. Differential diagnosis includes both trauma/hematoma and rapidly growing neoplasm ?? PET-CT 07/02/22: 1. ??Interval increased size and metabolic activity of the RIGHT lower lobe mass. Findings favor primary pulmonary malignancy. 2. ??Hilar lymph nodes are unchanged, nonenlarged and symmetric. Although metastasis cannot be excluded, these findings favor a reactive process. 3. ??Unchanged right-sided pleural effusion. ? PFTs 07/02/22: DLCO 44%, FEV1 49% ?? Lung biopsy and pleural drain placement 07/21/22: -Path: 1. Lung, ??right lower lobe mass, biopsy: Squamous cell carcinoma. Tumor Proportion Score (TPS): % Expression: 5% 2. Pleural fluid, right (thoracentesis): The specimen consists predominantly of debris, a few scattered degenerated cells, and mixed inflammatory cells. No overtly cytologically malignant cells seen. ?? MRI Brain 08/10/22: DOMINGO Treatment: Intent: Curative/definitive Site: Right lower lobe Prescription: 50Gy in 5 fractions (BED(10)=100Gy(10)) Technique: VMAT/IMRT Procedure Detail: Mr. Xiong was in the radiation oncology clinic today for stereotactic body radiation therapy to treat the above diagnosis. he was evaluated pre- treatment in the clinic, and has no contraindications for proceeding with treatment. he was brought to the treatment area and name and were verified as was the site of treatment. he was secured to the treatment table in the stereotactic body frameper usual routine. IGRT was accomplished with CBCT pre- and intra- fraction as needed. he was monitored continuously with the [employer] RT system for excessive respiratory motion. Marco Antonio Xiong's 1st of 5 SBRT treatments was successfully delivered. I was personally present/supervising for the critical portions of the procedure. Plan Image: Impression/Plan: Impression: Marco Antonio Xiong tolerated treatment without incident. Plan: ?? Continue radiation therapy as planned. No orders of the defined types were placed in this encounter. ??? National Cancer [place] (NCI) Comprehensive Cancer [facility] ??? [employer] Commission on Cancer (ACS Jorge) Accredited Cancer Program ??? [employer] (ACR) Accredited Radiation Oncology Program documented in this encounter Plan of Treatment Upcoming Encounters Date Type Department Care Team (Late st Contact Info) Description 06/20/2024 10:00 AM EST Office Visit Hematology/Oncology at [address] [phone] HEMATOLOGY AND ONCOLOGY [place], [place] [phone] 06/20/2024 10:30 AM EST Infusion Hematology Oncology at [address] [phone] 07/04/2024 11:00 AM EST Office Visit Hematology/Oncology at [address] [phone] HEMATOLOGY AND ONCOLOGY [place], [place] [phone] 07/04/2024 11:30 AM EST Infusion Hematology Oncology at [address] [phone] documented as of this encounter Visit Diagnoses Diagnosis Non-small cell lung cancer, unspecified laterality documented in this encounter Care Teams Retail Advertising Executive Relationship Specialty Start Date End Date Kadi Lane PA [address] [place] [address] PCP - General Family Medicine 07/28/16 documented as of this encounter
--- OUTSIDE RECORDS SUMMARY | 2024-06-20 01:27 | XMS_ITS | Encounter Summary ---
Author Organization [facility] [address] Care Team Providers Care Work Ticket Distributor Name Role Phone Kadi Lane Primary Care Provider [phone] Encounter Details Date Type Department Care Team (Late st Contact Info) Description 09/23/2022 Notes Only Radiation Oncology at [address] [phone] Princess Rodriguez, [employer] OFFICE OF CARE MANAGEMENT Social History Tobacco Use Types Packs/Day Years Used Date Smoking Tobacco: Former Cigarettes 2 32 1 866 - 1967 Smokeless Tobacco: Former Alcohol Use Standard Drinks/Week [...] this encounter Progress Notes * Princess Rodriguez, [employer] IN[employer]LE - 09/23/2022 2:18 PM EDT Reason for Referral: Brief assessment of social and emotional needs. Met with Marco Antonio and his Bhavna after his sim today to introduce myself and role of vp digital marketing social media and crm to assess/address barriers to getting to and through treatments; address support needs and connect with community services and resources as needed. Family/Social Supports: Marco Antonio indicated his of 55 years is his primary support. They have 2 sons and one daughter No one lives local. They keep in close touch with each other. Living Situation/Daily Activities/Transportation: Marco Antonio and his manage their daily chores and activities. He is expecting 5 RT treatments. They do not expect any issues with transportation. 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 He has Medicare and a secondary insurance. Advance Directives: Marco Antonio indicated he has completed his advance directive. Requested a copy for his medical record if he wants it on file. Utilization of Community Resources: None a this time. Did provide information about the [facility] if they are looking for some financial assistance especially with travel costs. Adjustment to Illness/Mental Health Concerns: Marco Antonio indicated he is coping well. He keeps very busyand active. He enjoys snowmobiling in the winter and riding his motorbike in the summer. He enjoys fishing. He visits family in [place]. Identified Needs: Marco Antonio and his did not identify any specific needs at this time. Referrals: None at this time but they information about the [facility]. Social Work Interventions: Brief assessment Supportive Counseling Advance care planning Plan: Informed pt of [employer] availability and contact information. Will follow to assess/address psychosocial needs. ANNMARIE Stratton, LADLE BUILDER, OSW-C Mobile Equipment Operator [facility] documented in this encounter Plan of Treatment Upcoming Encounters Date Type Department Care Team (Late st Contact Info) Description 06/20/2024 10:00 AM EST Office Visit Hematology/Oncology at [address] [phone] Lia Barber [address] [place] [address] 06/20/2024 10:30 AM EST Infusion Hematology Oncology at [address] [phone] 07/04/2024 11:00 AM EST Office Visit Hematology/Oncology at [address] [phone] Lia Barber [address] [place] [address] 07/04/2024 11:30 AM EST Infusion Hematology Oncology at [address] [phone] documented as of this encounter Visit Diagnoses Not on filedocumented in this encounter Care Teams Work Ticket Distributor Relationship Specialty Start Date End Date Kadi Lane [place] [address] PCP - General Family Medicine 07/28/16 documented as of this encounter
--- OUTSIDE RECORDS SUMMARY | 2024-06-20 01:27 | XMS_ITS | Encounter Summary ---
Author Organization [facility]ie [facility] [address] Care Team Providers Care Manager Gas Name Role Phone Kadi Lane Primary Care Provider [phone] Encounter Details Date Type Department Care Team (Late st Contact Info) Description 12/16/2022 Orders Only [place] [address] Rafael Pope MD [facility] [place] [address] Social History Tobacco Use Types Packs/Day Years Used Date Smoking Tobacco: Former Cigarettes 2 32 1 816 - 1987 Smokeless Tobacco: Former Alcohol Use [...] AM EST Office Visit Hematology/Oncology at [address] [phone] Lia Barber APRN [address] [place] [address] DR HEMATOLOGY AND ONCOLOGY [place], [place] [address] 06/20/2024 10:30 AM EST Infusion Hematology Oncology at [address] [phone] 07/04/2024 11:00 AM EST Office Visit Hematology/Oncology at [address] [phone] Lia Barber APRN [address] [place] [address] DR HEMATOLOGY AND ONCOLOGY [place], [place] [id number] 07/04/2024 11:30 AM EST Infusion Hematology Oncology at [address] [phone] documented as of this encounter Visit Diagnoses Not on filedocumented in this encounter Care Teams Manager Gas Relationship Specialty Start Date End Date Kadi Lane PA [address] [place] [address] PCP - General Family Medicine 07/28/16 documented as of this encounter
--- OUTSIDE RECORDS SUMMARY | 2024-06-20 01:27 | XMS_ITS | Encounter Summary ---
Author Organization [facility] [place] [address] Care Team Providers Care Automotive Glass Specialist Name Role Phone Kadi Lane Primary Care Provider [phone] Encounter Details Date Type Department Care Team (Late st Contact Info) Description 06/18/2023 Telephone Radiation Oncology at [address] [phone] Melvi Gamboa Social History Tobacco Use Types Packs/Day Years Used Date Smoking Tobacco: Former Cigarettes 2 32 1 446 - 1987 Smokeless Tobacco: Former Alcohol Use [...] * Telephone Encounter - Melvi Gamboa - 06/18/2023 10:41 AM EST Called [facility] to have the report faxed and the images pushed to [employer] library. They will do it today documented in this encounter Plan of Treatment Upcoming Encounters Date Type Department Care Team (Late st Contact Info) Description 06/20/2024 10:00 AM EST Office Visit Hematology/Oncology at [address] [phone] Lia Barber APRN [address] [place] [address] DR HEMATOLOGY AND ONCOLOGY [place], [place] [id number] 06/20/2024 10:30 AM EST Infusion Hematology Oncology at [address] [phone] 07/04/2024 11:00 AM EST Office Visit Hematology/Oncology at [address] [phone] Lia Barber APRN [address] [place] [address] DR HEMATOLOGY AND ONCOLOGY [place], [place] [id number] 07/04/2024 11:30 AM EST Infusion Hematology Oncology at [address] [phone] documented as of this encounter Visit Diagnoses Not on filedocumented in this encounter Care Teams Automotive Glass Specialist Relationship Specialty Start Date End Date Kadi Lane PA [address] [place] [address] PCP - General Family Medicine 07/28/16 documented as of this encounter
--- OUTSIDE RECORDS SUMMARY | 2024-06-20 01:27 | XMS_ITS | Encounter Summary ---
[place] [address] Care Team Providers Care Director Advanced Name Role Phone Kadi Lane Primary Care Provider [phone] Encounter Details Date Type Department Care Team (Late st Contact Info) Description 09/08/2022 Telephone Cardiology at [address] [phone] Kylie Garber Social History Tobacco Use Types Packs/Day Years Used Date Smoking Tobacco: Former Cigarettes 2 32 1 236 - 1987 Smokeless Tobacco: Former Alcohol Use [...] encounter Miscellaneous Notes * Telephone Encounter - Kylie Garber - 09/08/2022 4:10 PM EDT Got a phone call from Eunice Scott NP in Oncology and would like to know if Dr Ledbetter could do a TH visit on 09-29-2022 instead of an in person visit. documented in this encounter Plan of Treatment Upcoming Encounters Date Type Department Care Team (Late st Contact Info) Description 06/20/2024 10:00 AM EST Office Visit Hematology/Oncology at [address] [phone] Lia Barber APRN [address] [place] [address] [place] [address] 06/20/2024 10:30 AM EST Infusion Hematology Oncology at [address] [phone] 07/04/2024 11:00 AM EST Office Visit Hematology/Oncology at [address] [phone] Lia Barber APRN [address] [place] [address] DR HEMATOLOGY AND ONCOLOGY [place], [place] [id number] 07/04/2024 11:30 AM EST Infusion Hematology Oncology at [address] [phone] documented as of this encounter Visit Diagnoses Not on filedocumented in this encounter Care Teams Director Advanced Relationship Specialty Start Date End Date Kadi Lane [place] [address] PCP - General Family Medicine 07/28/16 documented as of this encounter
--- OUTSIDE RECORDS SUMMARY | 2024-06-20 01:27 | XMS_ITS | Encounter Summary ---
Author Organization [facility] [place] [address] Care Team Providers Care Leaf Conditioner Name Role Phone Kadi Lane Primary Care Provider [phone] Encounter Details Date Type Department Care Team (Latest Contact Info) Description 10/13/2022 12:30 PM EDT Procedure visit Radiation Oncology at [address] [phone] Kimberly Rangel MD [facility] [place] [address] Non-small cell cancer of right lung Social [...] Sign Reading Time Taken Comments Blood Pressure 142/57 10/13/2022 12:30 PM EDT Pulse 53 10/13/2022 12:30 PM EDT Temperature 36.8 ??C (98.2 ??F) 10/13/2022 12:30 PM E DT Respiratory Rate 18 10/13/2022 12:30 PM EDT Oxygen Saturation 100% 10/13/2022 12:30 PM EDT Inhaled Oxygen Concentration - - Weight - - Height - - Body Mass Index - - documented in this encounter Progress Notes * Kimberly Rangel MD - 10/13/2022 12:30 PM EDT Images from the original note were not included. [facility] Medicine Radiation Oncology Radiation Oncology SBRT On-treatment [...] 50 Gy in 5 fractions Current Dose: 20 Gy in 2 fraction Interval Clinical Course General: No changes since [...] confined to bed or chair Medications Medications 10/13/22 1236 Medication Sig Taking? clopidogreL (Plavix) 75 mg tablet Take 1 tablet by mouth daily. Yes metoprolol succinate XL (Toprol-XL) 25 mg Tablet Sustained Release 24 hr Take 0.5 tablets by mouth daily. Yes atorvastatin (Lipitor) 40 mg Tablet Take 1 tablet by mouth daily. Yes nitroGLYcerin (Nitrostat) 0.4 mg Tablet, Sublingual Place 1 tablet under the tongue every 5 minutesas needed for Chest pain. Yes multivitamin (THERAGRAN) Tablet Take 1 tablet by mouth daily. Yes aspirin EC 81 mg Tablet, Delayed Release (E.C.) Take 81 mg by mouth daily. Yes omeprazole (PriLOSEC) 20 mg Capsule, Delayed Release(E.C.) Take 20 mg by mouth every morning. Yes Exam Vitals: BP 142/57 (BP Location (NBP): Left arm, Patient Position: Sitting) Pulse 53 Temp 36.8 ??C (98.2??F) (Temporal) Resp 18 SpO2 100% General: Appears well, in no distress Imaging/Labs Interval setup imaging has been checked and approved. See [facility] for details. Impression/Plan Tolerance to radiotherapy: Tolerating as anticipated. Continue as planned. Followup: RTC for on-treatment assessment 10/15/22. Post Treatment Note I directly observed and [...] placed in this encounter. ??? [employer] [place] (NCI) [facility] ??? [employer] Commission on Cancer (ACS Jorge) Accredited Cancer Program ??? [employer] (ACR) Accredited Radiation Oncology Program documented in this encounter Plan of Treatment Upcoming Encounters Date Type Department Care Team (Late st Contact Info) Description 06/20/2024 10:00 AM EST Office Visit Hematology/Oncology at [address] [phone] Lia Barber [address] HEMATOLOGY AND ONCOLOGY [place], [place] [id number] 06/20/2024 10:30 AM EST Infusion Hematology Oncology at [address] [phone] 07/04/2024 11:00 AM EST Office Visit Hematology/Oncology at [address] [phone] HEMATOLOGY AND ONCOLOGY [place], [place] [phone] 07/04/2024 11:30 AM EST Infusion Hematology Oncology at [address] [phone] documented as of this encounter Visit Diagnoses Diagnosis Non-small cell cancer of right lung documented in this encounter Care Teams Leaf Conditioner Relationship Specialty Start Date End Date Kadi Lane PA [address] [place] [address] PCP - General Family Medicine 07/28/16 documented as of this encounter
--- OUTSIDE RECORDS SUMMARY | 2024-06-20 01:27 | XMS_ITS | Encounter Summary ---
Author Organization [facility] [address] Care Team Providers Care Lead Investigator Name Role Phone Kadi Lane Primary Care Provider [phone] Reason for Visit * Reason Comments IV Access IV start for SIM Encounter Details Date Type Department Care Team (Late st Contact Info) Description 09/23/2022 12:00 PM EDT Infusion Hematology Oncology at [address] [phone] Non-small cell cancer of right lung Social History Tobacco Use Types Packs/Day Years Used Date Smoking Tobacco: Former Cigarettes 2 32 1 536 - 1987 Smokeless Tobacco: Former Alcohol Use [...] as of this encounter Progress Notes * Corry Fowler RN - 09/23/2022 12:00 PM EDT Patient ready for IV start in Exam Rm #2. #20g PIV placed without difficulty in right arm. Positive blood return noted. Stat-Lock appliance applied. Alcohol impregnated cap applies. Report given to [facility]. documented in this encounter Plan of Treatment Upcoming Encounters Date Type Department Care Team (Late st Contact Info) Description 06/20/2024 10:00 AM EST Office Visit Hematology/Oncology at [address] [phone] HEMATOLOGY AND ONCOLOGY [place], [place] [address] 06/20/2024 10:30 AM EST Infusion Hematology Oncology at [address] [phone] 07/04/2024 11:00 AM EST Office Visit Hematology/Oncology at [address] [phone] HEMATOLOGY AND ONCOLOGY [place], [place] [phone] 07/04/2024 11:30 AM EST Infusion Hematology Oncology at [address] [phone] documented as of this encounter Visit Diagnoses Diagnosis Non-small cell cancer of right lung documented in this encounter Care Teams Lead Investigator Relationship Specialty Start Date End Date Kadi Lane PA [address] [place] [address] PCP - General Family Medicine 07/28/16 documented as of this encounter
--- OUTSIDE RECORDS SUMMARY | 2024-06-20 01:27 | XMS_ITS | Encounter Summary ---
Author Organization [facility] [place] [address] Care Team Providers Care Speech Language Pathologist Assistant Name Role Phone Kadi Lane Primary Care Provider [phone] Encounter Details Date Type Department Care Team (Late st Contact Info) Description 11/02/2022 Orders Only Thoracic Surgery at [facility] [place] [phone] Mary Douglas, RN Social History Tobacco Use Types Packs/Day [...] AM EST Office Visit Hematology/Oncology at [address] [phone] Lia Barber [address] HEMATOLOGY AND ONCOLOGY [place], [place] [address] 06/20/2024 10:30 AM EST Infusion Hematology Oncology at [address] [phone] 07/04/2024 11:00 AM EST Office Visit Hematology/Oncology at [address] [phone] Lia Barber [address] [place] [address] 07/04/2024 11:30 AM EST Infusion Hematology Oncology at [address] [phone] documented as of this encounter Visit Diagnoses Not on filedocumented in this encounter Care Teams Speech Language Pathologist Assistant Relationship Specialty Start Date End Date Kadi Lane PA [facility] [place] [address] PCP - General Family Medicine 07/28/16 documented as of this encounter
--- OUTSIDE RECORDS SUMMARY | 2024-06-20 01:27 | XMS_ITS | Encounter Summary ---
[place] [address] Care Team Providers Care Chinese Instructor Name Role Phone Kadi Lane Primary Care Provider [phone] Encounter Details Date Type Department Care Team (Late st Contact Info) Description 09/08/2022 Telephone [place] [address] Jesi Prater RN Social History Tobacco Use Types Packs/Day [...] encounter Miscellaneous Notes * Telephone Encounter - Jesi Prater RN - 09/08/2022 9:18 AM EDT Caller name: Bhavna, Call back number: [phone] Reason for call: Bhavna is calling the office to speak to nurse, states it is urgent. TC back to Bhavna, patient's . The patient received a letter in the mail stating he had an appointment with nuclear medicine and patient's is confused what this is for. I instructed Bhavna that this is an appointment for his PET scan. She understands and appreciatesthe callback. documented in this encounter Plan of Treatment Upcoming Encounters Date Type Department Care Team (Late st Contact Info) Description 06/20/2024 10:00 AM EST Office Visit Hematology/Oncology at [address] [phone] HEMATOLOGY AND ONCOLOGY [place], [place] [address] 06/20/2024 10:30 AM EST Infusion Hematology Oncology at [address] [phone] 07/04/2024 11:00 AM EST Office Visit Hematology/Oncology at [address] [phone] Lia Barber [address] HEMATOLOGY AND ONCOLOGY [place], [place] [address] 07/04/2024 11:30 AM EST Infusion Hematology Oncology at [address] [phone] documented as of this encounter Visit Diagnoses Not on filedocumented in this encounter Care Teams Chinese Instructor Relationship Specialty Start Date End Date Kadi Lane PA [facility] [place] [address] PCP - General Family Medicine 07/28/16 documented as of this encounter
--- OUTSIDE RECORDS SUMMARY | 2024-06-20 01:27 | XMS_ITS | Encounter Summary ---
Author Organization [facility] [place] [address] Care Team Providers Care Sheetmetal Trades Worker Name Role Phone Kadi Lane Primary Care Provider [phone] Encounter Details Date Type Department Care Team (Late st Contact Info) Description 10/19/2022 Notes Only [place] [address] Rafael Pope MD [facility] [place] [address] Social History Tobacco Use Types Packs/Day Years Used Date Smoking Tobacco: Former Cigarettes 2 32 1 296 - 1987 Smokeless Tobacco: Former Alcohol Use [...] Progress Notes * Rafael Pope MD - 10/19/2022 11:59 PM EDT Images from the original note were not included. 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 TREATMENT DETAILS Treatment Intent Curative Site Treated Lung Primary Technique VMAT, SBRT Adaptive Plan Required No Concurrent Chemo No Clinical Trial No TECHNICAL DETAILS Total Dose: 50 Gy / 5 fractions PLAN IMAGES CLINICAL COURSE Marco Antonio Xiong had the following toxicities at the end of treatment (CTCAE v4.03): None noted FOLLOW UP Per NCC protocol documented in this encounter Plan of Treatment Upcoming Encounters Date Type Department Care Team (Late st Contact Info) Description 06/20/2024 10:00 AM EST Office Visit Hematology/Oncology at [address] [phone] [address]ia [address] [place] [address] 06/20/2024 10:30 AM EST Infusion Hematology Oncology at [address] [phone] 07/04/2024 11:00 AM EST Office Visit Hematology/Oncology at [address] [phone] [address] HEMATOLOGY AND ONCOLOGY [place], [place] [address] 07/04/2024 11:30 AM EST Infusion Hematology Oncology at [address] [phone] documented as of this encounter Visit Diagnoses Not on filedocumented in this encounter Care Teams Sheetmetal Trades Worker Relationship Specialty Start Date End Date Kadi Lane [place] [address] PCP - General Family Medicine 07/28/16 documented as of this encounter
--- OUTSIDE RECORDS SUMMARY | 2024-06-20 01:27 | XMS_ITS | Encounter Summary ---
Author Organization [facility] [address] Care Team Providers Care Engraver Picture Name Role Phone Kadi Lane Primary Care Provider [phone] Encounter Details Date Type Department Care Team (Latest Contact Info) Description 09/17/2022 Travel Social History Tobacco Use Types Packs/Day Years Used Date Smoking Tobacco: Former Cigarettes 2 32 1 956 - 6921 Smokeless Tobacco: Former Alcohol Use Standard Drinks/Week [...] AM EST Office Visit Hematology/Oncology at [address] [phone] Lia Barber [address] HEMATOLOGY AND ONCOLOGY [place], [place] [address] 06/20/2024 10:30 AM EST Infusion Hematology Oncology at [address] [phone] 07/04/2024 11:00 AM EST Office Visit Hematology/Oncology at [address] [phone] HEMATOLOGY AND ONCOLOGY [place], [place] [address] 07/04/2024 11:30 AM EST Infusion Hematology Oncology at [address] [phone] documented as of this encounter Visit Diagnoses Not on filedocumented in this encounter Care Teams Engraver Picture Relationship Specialty Start Date End Date Kadi Laen PA [address] [place] [address] PCP - General Family Medicine 07/28/16 documented as of this encounter
--- OUTSIDE RECORDS SUMMARY | 2024-06-20 01:27 | XMS_ITS | Encounter Summary ---
Author Organization [facility] [place] [address] Care Team Providers Care Parts Assembler Name Role Phone Kadi Lane Primary Care Provider [phone] Encounter Details Date Type Department Care Team (Latest Contact Info) Description 10/13/2022 Travel Social History Tobacco Use Types Packs/Day Years Used Date Smoking Tobacco: Former Cigarettes 2 32 1 956 - 4726 Smokeless Tobacco: Former Alcohol Use Standard Drinks/Week [...] AM EST Office Visit Hematology/Oncology at [address] [phone] Lia Barber [address] HEMATOLOGY AND ONCOLOGY [place], [place] [address] 06/20/2024 10:30 AM EST Infusion Hematology Oncology at [address] [phone] 07/04/2024 11:00 AM EST Office Visit Hematology/Oncology at [address] [phone] HEMATOLOGY AND ONCOLOGY [place], [place] [address] 07/04/2024 11:30 AM EST Infusion Hematology Oncology at [address] [phone] documented as of this encounter Visit Diagnoses Not on filedocumented in this encounter Care Teams Parts Assembler Relationship Specialty Start Date End Date Kadi Lane PA [address] [place] [address] PCP - General Family Medicine 07/28/16 documented as of this encounter
--- OUTSIDE RECORDS SUMMARY | 2024-06-20 01:27 | XMS_ITS | Encounter Summary ---
[place] [address] Care Team Providers Care Tarp Repairer Name Role Phone Kadi Lane Primary Care Provider [phone] Reason for Visit * Reason Comments Medication Refill Encounter Details Date Type Department Care Team (Late st Contact Info) Description 06/22/2023 Refill Cardiology at [address] [phone] Isaac Ledbetter MD [facility] [address] Medication Refill Social History Tobacco Use Types [...] 10:00 AM EST Office Visit Hematology/Oncology at [address] [phone] Lia Barber APRN [address] [place] [address] DR HEMATOLOGY [place] [address] 06/20/2024 10:30 AM EST Infusion Hematology Oncology at [address] [phone] 07/04/2024 11:00 AM EST Office Visit Hematology/Oncology at [address] [phone] Lia Barber APRN [address] [place] [address] DR HEMATOLOGY AND ONCOLOGY [place], [place] [address] 07/04/2024 11:30 AM EST Infusion Hematology Oncology at [address] [phone] documented as of this encounter Visit Diagnoses Diagnosis Chest pain, unspecified type documented in this encounter Care Teams Tarp Repairer Relationship Specialty Start Date End Date Kadi [place] [address] PCP - General Family Medicine 07/28/16 documented as of this encounter
--- OUTSIDE RECORDS SUMMARY | 2024-06-20 01:27 | XMS_ITS | Encounter Summary ---
[place] [address] Care Team Providers Care Senior Living Advisor Name Role Phone Kadi Lane Primary Care Provider [phone] Reason for Referral * Diagnostic Test (Routine) - Closed Specialty Diagnoses / Procedures Referred By Contac t Referred To Contact Radiology Diagnoses Non-small cell cancer of right lung Procedures NM PET CT Skull Base to Mid-thigh Zach Vincent MD [facility] DR [place] [address] [place] [address] Referral ID Status Reason Start Date Expiration Date V isits Requested Visits Authorized [id number] Closed Specialty Service Requested 09/02/2022 03/04/2024 1 1 Encounter Details Date Type Department Care Team (Late st Contact Info) Description 09/02/2022 Orders Only [place]ology [place] [address] Zach Vincent MD [facility] DR [place] [address] Non-small cell cancer of right [...] AM EST Office Visit Hematology/Oncology at [address] [phone] [address] HEMATOLOGY AND ONCOLOGY [place], [place] [address] 06/20/2024 10:30 AM EST Infusion Hematology Oncology at [address] [phone] 07/04/2024 11:00 AM EST Office Visit Hematology/Oncology at [address] [phone] HEMATOLOGY AND ONCOLOGY [place], [place] [address] 07/04/2024 11:30 AM EST Infusion Hematology Oncology at [address] [phone] documented as of this encounter Results * NM PET CT [...] who have questions please contact the health caregivers non medical that requested your imaging first. ? Electronically signed by: Lia Escobedo MD, [facility] ([phone]), at 09/23/2022 1:30 PM Narrative 09/23/2022 1:30 PM EDT EXAMINATION: NM PET CT STANDARD SKULL BASE TO MID-THIGH CLINICAL HISTORY: Non-small cell lung cancer, staging 76 yo with Stage II node negative lung cancer but due to cardiac issues has not been able to start treatment. ??REstaging PET scan to assess for metastatic spread. TECHNIQUE: Following IV injection of 65-zhbysh-5-deoxyglucose (FDG) a standard uptake of approximately 60 [...] formetastatic spread. TECHNIQUE: Following IV injection of 35-lpnetu-2-deoxyglucose (FDG) astandard uptake of approximately 60 minutes, [...] patients who have questions please contactthe health caregivers non medical that requested your imaging first. 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
--- OUTSIDE RECORDS SUMMARY | 2024-06-20 01:27 | XMS_ITS | Encounter Summary ---
Author Organization [facility] [place] [address] Care Team Providers Care Car Sander Name Role Phone Kadi Lane Primary Care Provider [phone] Encounter Details Date Type Department Care Team (Late st Contact Info) Description 10/09/2022 11:45 AM EDT Procedure visit Radiation Oncology at [address] [phone] Enrrique Tafoya MD [address] [place] [address] [place] [address] Non-small cell cancer of right [...] Sign Reading Time Taken Comments Blood Pressure 137/58 10/09/2022 11:28 AM EDT Pulse 58 10/09/2022 11:28 AM EDT Temperature 36.6 ??C (97.9 ??F) 10/09/2022 11:28 AM E DT Respiratory Rate 18 10/09/2022 11:28 AM EDT Oxygen Saturation 99% 10/09/2022 11:28 AM EDT Inhaled Oxygen Concentration - - Weight 65 kg (143 lb 4.8 oz) 10/09/2022 11:28 AM EDT Height - - Body Mass Index 23.13 10/07/2022 3:12 PM EDT documented in this encounter Progress Notes * Enrrique Tafoya MD - 10/09/2022 11:45 AM EDT Images from the original note were not included. [facility] Medicine Radiation Oncology Radiation Oncology SBRT [...] 50 Gy in 5 fractions Current Dose: 10 Gy in 1 fraction Interval Clinical Course General: No changes since last seen. Slight nausea reported today. Resp: No new SOB. Slight dry cough. [...] confined to bed or chair Medications Medications 10/09/22 1135 Medication Sig Taking? clopidogreL (Plavix) 75 mg [...] Chest pain. Patient not taking: Reported on 10/07/2022 Exam Vitals: BP 137/58 (BP Location (NBP): Left arm, Patient Position: Sitting, BP Cuff Sizes: Adult (25-34 cm)) Pulse 58 Temp 36.6 ??C (97.9 ??F) Resp 18 Wt 65 kg (143 lb 4.8 oz) SpO2 99% BMI 23.13 kg/m?? General: Appears well, in no distress Imaging/Labs Interval setup imaging has been checked and approved. See Aria for details. Impression/Plan Tolerance to radiotherapy: Tolerating as anticipated. Continue as planned. Followup: RTC for on-treatment assessment next week. Post Treatment Note I directly observed and supervised today's treatment from the radiation therapy console, which consisted of pretreatment imaging for setup, cone-beam CT for verification and intrafraction monitoring using the VisionRT surface guided treatment system. Marco Antonio tolerated treatment with no concerns and will return for his third fraction on Friday 10/13. No orders of the defined types were placed in this encounter. ??? National Cancer [place] ([facility] ??? [employer] Commission on Cancer (ACS Jorge) Accredited Cancer Program ??? [employer] (ACR) Accredited Radiation Oncology Program documented in this encounter Plan of Treatment Upcoming Encounters Date Type Department Care Team (Late st Contact Info) Description 06/20/2024 10:00 AM EST Office Visit Hematology/Oncology at [address] [phone] Lia Barber APRN [address] [place] [address] DR HEMATOLOGY AND ONCOLOGY [place], [place] [phone] 06/20/2024 10:30 AM EST Infusion Hematology Oncology at [address] [phone] 07/04/2024 11:00 AM EST Office Visit Hematology/Oncology at [address] [phone] Lia Barber APRN [address] [place] [address] DR HEMATOLOGY AND ONCOLOGY [place], [place] [phone] 07/04/2024 11:30 AM EST Infusion Hematology Oncology at [address] [phone] documented as of this encounter Visit Diagnoses Diagnosis Non-small cell cancer of right lung documented in this encounter Care Teams Car Sander Relationship Specialty Start Date End Date Kadi Lane PA [address] [place] [address] PCP - General Family Medicine 07/28/16 documented as of this encounter
--- OUTSIDE RECORDS SUMMARY | 2024-06-20 01:28 | XMS_ITS | Encounter Summary ---
Author Organization [facility] [place] [address] Care Team Providers Care Stacker Name Role Phone Kadi Lane Primary Care Provider [phone] Reason for Visit * Auth/Cert (Routine) Specialty Diagnoses / Procedures Referred By Contac t Referred To Contact Diagnoses Chest pain, unspecified type [R07.9] Procedures CARDIAC CATHETERIZATION Leti Hopper MD [facility] [place] [address] [facility] Referral ID Status Reason Start Date Expiration Date Visits Re quested Visits Authorized [id number] 1 1 Encounter Details Date Type Department Care Team (Late st Contact Info) Description 08/28/2022 11:30 AM EDT - 08/28/2022 12:30 PM EDT Surgery [place] [phone] Leti Hopper MD [facility] [place] [address] CARDIAC CATHETERIZATION Social History Tobacco Use Types Packs/Day Years [...] Sign Reading Time Taken Comments Blood Pressure 176/66 08/28/2022 11:06 AM EDT Pulse 53 08/28/2022 11:06 AM EDT Temperature 36.3 ??C (97.3 ??F) 08/28/2022 11:06 AM E DT Respiratory Rate 16 08/28/2022 11:06 AM EDT Oxygen Saturation 98% 08/28/2022 11:06 AM EDT Inhaled Oxygen Concentration - [...] Antonio Xiong Patient Age: 76 y.o. Language: Citizen Of [place] Race: White Ethnicity: Not nor Admit date: 08/28/2022 Discharge date and time: 08/29/2022 Attending Physician: Leti Nguyen MD Follow-up Recommendations for Providers: - dual antiplatelet regimen as follows: - aspirin 81 mg daily lifelong - clopidogrel 75 mg daily for 6 months after PCI for stable ischemic heart disease -Do not stop aspirin or clopidogrel unless told to do so by a supervisor education - recommend follow up with cardiology in 3-4 weeks Inpatient Provider Contact Information: Leti Nguyen MD - attending Radhames Feliciano MD - Fellow Inpatient Provider Contact Information: For questions regarding this document or issues relating to this hospitalization on the Medical Service, please contact your inpatient physician through the [facility] Water Purifier Operator . Issues afterhours and on weekends will [...] Operations: Procedure(s): CARDIAC CATHETERIZATION CORONARY ANGIOGRAPHY; [facility],POSSIBLE PCI (WRVU 5.6) 08/28/2022 History of Presentation: [...] reason Close outpatient follow up with your supervisor education Radial Access for Heart Cath Activity Try [...] please contact your inpatient physician through the [facility] Water Purifier Operator . Issues afterhours and on weekends will [...] reason Close outpatient follow up with your supervisor education Radial Access for Heart Cath Activity Try [...] please contact your inpatient physician through the [facility] Water Purifier Operator . Issues afterhours and on weekends will be handled by the Hospitalist staff on-call. documented in this encounter Medications at Time of Discharge Medication Sig Dispensed Refills Start Date End Date multivitamin (THERAGRAN) Tablet Take 1 tablet by mouth daily. aspirin EC 81 mg Tablet, Delayed Release (E.C.) Take 81 mg by mouth daily. clopidogreL (Plavix) 75 mg tablet Take 1 tablet by mouth daily. 90 tablet 3 08/28/2022 nitroGLYcerin (Nitrostat) 0.4 mg Tablet, SublingualIndications:Ch est pain, unspecified type Place 1 tablet under the tongue every 5 minutes as needed for Chest pain. 30 tablet 3 07/07/2022 magnesium oxide (Mag-Ox) 400 mg (241.3 mg [...] Solorio RN - 08/29/2022 10:02 AM EDT [facility] Short Stay Unit Discharge Note All relevant [...] in this encounter H&P Notes * Luke Long, - 08/28/2022 4:31 PM EDT Interventional Cardiology Post-PCI H&P Reason for Admission: s/p PCI to Mid LAD X 2 History: 76 y.o. 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 He underwent exercise nuclear SPECT MPI on 07/01/[address] [facility] and was found to have large apical [...] Social History Narrative Lives with his in [place], [place] (2.5 hr). 3 kids, all grown [...] -will need new RX for plavix at [place] Luke Long DO 08/28/2022 4:32 PM * Luke Long DO - 08/28/2022 7:45 AM EDT Images from the original note were not included. Patient Name: Marco Antonio Xiong Patient Age: 76 y.o. Birthdate: 1945 Admit date: 08/28/2022 Attending Physician: Leti Nguyen MD [facility] [place] [address] [address] SAME DAY CARDIAC CATHETERIZATION LAB H&P ID: Marco Antonio Xiong is a 76 y.o. 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 and was found to have large apical [...] BMP: Recent Labs 07/07/22 1053 06/19/22 1024 02/26/22 2051 02/26/22 0444 NA 141 -- 142 140 K [...] as planned -consent signed Luke Long DO City Planning Teacher 08/28/2022 documented in this encounter Plan of Treatment Upcoming Encounters Date Type Department Care Team (Late st Contact Info) Description 06/20/2024 10:00 AM EST Office Visit Hematology/Oncology at [address] [phone] [place] [address] 06/20/2024 10:30 AM EST Infusion Hematology Oncology at [address] [phone] 07/04/2024 11:00 AM EST Office Visit Hematology/Oncology at [address] [phone] [address] [place] [address] 07/04/2024 11:30 AM EST Infusion Hematology Oncology at [address] [phone] documented as of this encounter Procedures Procedure Name Priority Date/Time Associated Diagnosis Comments HEMOGRAM Routine 08/29/2022 6:34 AM EDT BASIC METABOLIC PANEL Routine 08/29/2022 6:34 AM EDT EKG 12-LEAD Routine 08/28/2022 3:01 PM EDT Coronary artery disease, unspecified vessel or lesion type, unspecified whether angina present, unspecified whether [place] or transplanted heart CARDIAC CATHETERIZATION Routine 08/29/19 2:26 PM EDT Chest pain, unspecified type Cath Plmt Left Heart Cath & Arts W/Inj & Angio Img S&I ([id number]) 08/28/2022 11:51 AM EDT Chest pain, unspecified type BMP W/FASTING GLUCOSE Routine 08/28/2022 10:50 AM EDT HEMOGRAM Routine 08/28/2022 10:50 AM EDT DIFFERENTIAL, AUTOMATED Routine 08/29/19 10:50 AM EDT HC CBC,PLT & AUTO DIFF Routine 10:50 AM EDT documented in this encounter Results * (ABNORMAL) Hemogram (08/29/2022 6:34 AM EDT) White Blood Cell 6.4 4.0 - 9.5 x10(3)/mc L [facility] Red Blood Cell 3.65(L) 4.58 - 5.54 x10(6)/mc L [facility] Hemoglobin 11.7(L) 13.7 - 16.5 g/dL [facility] Hematocrit 34.1(L) 40.5 - 48.5 % [facility] Mean Cell Volume 93.4(H) 82.9 - 93.1 fL [facility] Mean Cell Hemoglobin 32.1 27.5 - 32.1 pg [facility] Mean Cell Hemoglobin Concentration 34.3 32.0 - 35.7 g/dL [facility] Platelet 230 145 - 357 x10(3)/mc L [facility] RDW Standard Deviation 45.4(H) 36.0 - 45.0 fL [facility] RDW coefficient of variation 13.2 11.4 - 13.8 % [facility] Mean Platelet Volume 9.1 7.6 - 12.9 fL [facility] NRBC% auto 0.0 % [facility] NRBC Absolute 0.000 0.000 - 0.000 x10(3)/mc L [facility] Blood 08/29/2022 6:34 AM EDT 08/29/2022 7:09 AM EDT Narrative Resulting Agency Comment Spec In Lab Leti Nguyen MD HEMATOLOGY ORDERABL ES [facility] [address] * (ABNORMAL) Basic Metabolic Panel (non-fasting) (08/29/2022 6:34 AM EDT) Glucose 103 65 - 199 mg/dL [facility] Comment:Diabetes: >=200 mg/d L plus symptoms Blood Urea Nitrogen 15 10 - 20 mg/dL [facility] Creatinine 0.77(L) 0.80 - 1.50 mg/dL [facility] Sodium 136 135 - 145 mmol/L [facility] Potassium 3.9 3.5 - 5.0 mmol/L [facility] Comment: Please note: ??Patients with WBC >100,000 may have falsely elevated Potassium levels. ??For accurate Potassium quantification in these patients send serum separator tube (gold top) for subsequent determinations. ??Contact the Clinical Chemistry Laboratory if there are any questions. Chloride 101 98 - 107 mmol/L [facility] Carbon Dioxide 27 22 - 31 mmol/L [facility] Anion Gap 8 5 - 15 mmol/L [facility] Calcium 9.0 8.5 - 10.5 mg/dL [facility] Est Glomerular Filtration Rate 92 >=60 mL/min/1. 73 m?? [facility] Comment: This patient's estimated GFR was [...] MD CHEMISTRY ORDERABLE S Performing Organization Address [facility] Co de Phone Number [facility] [address] * EKG 12 Lead (08/28/2022 3:01 PM EDT) Ventricular rate 52 BPM MUSE SYSTEM Atrial Rate 52 BPM MUSE SYSTEM P-R Interval 138 ms MUSE SYSTEM QRS Duration 90 ms MUSE SYSTEM Q-T Interval 480 ms MUSE SYSTEM QTC Calculated (Bezet) 446 ms MUSE SYSTEM Calculated P Holmes 59 degrees MUSE SYSTEM Calculated R Holmes 50 degrees MUSE SYSTEM Calculated T Holmes 68 degrees MUSE SYSTEM INTERPRETATION Sinus bradycardia with sinus arrhythmia Left ventricular hypertrophy with repolarization abnormality ( Sokolow-Jiménez ) Abnormal ECG When compared with ECG of 07-JUL-2022 09:32, [place] interval has increased T wave inversion less evident in Anterolateral leads Confirmed by MD KESHA, MIGUEL ([id number]) on 08/28/2022 3:40:36 PM MUSE SYSTEM 08/28/2022 3:01 PM EDT 08/28/2022 3:40 PM EDT Leti Nguyen MD ECG ORDERABLES Performing Organization Address [facility] Co de Phone Number MUSE SYSTEM * CARDIAC CATHETERIZATION (08/28/2022 2:26 PM EDT) Anatomical Region Laterality Modality Other Narrative 08/28/2022 4:37 PM EDT ?[facility] ? Cardiac Catheterization/Intervention Report ? Patient Name: Marco Antonio Xiong. ? Procedure Date: 08/28/2022 ? A #: [id number] ? Primary Physician: Leti Hopper I ? Case #: [id number] ? File Name: [id number] ? Catheterization Order Number: [id number] ? [facility] ? Final Report Bureau, [place] ? Patient Name: ? Marco Antonio G. Tyrese ?ID#: ?[id number] ? : ?1945 ? Procedure Date: ? August 28, 2022 ? Case #: ? [id number] ? Room: ? 6 ? Case Physician: [...] procedure was Elective. 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 [...] ?3.5 guiding catheter and a 3.5 Fr [facility] [address] ??20 Mhz using ?auto 1 mm/sec pullback. ??Imaging was successful. ??Image quality was good. ? The mid 1 LAD showed moderate diffuse atherosclerotic plaque. ?Measurements were performed after pre-dilation. ?Post Intervention: The stent was well expanded and apposed. ?Intravascular Ultrasound was performed in the mid 2 LAD using a 6 Fr EBU ?3.5 guiding catheter and a 3.5 Fr [facility] [address] ??20 Mhz using ?auto 1 mm/sec [...] . ??A premounted 2.75 x 22 mm [place] (CLAUDIA) was deployed ? with a maximum [...] ? A premounted 2.50 x 38 mm [place] (CLAUDIA) was deployed ? with a maximum [...] may require ?modification of this regimen. Consult [facility] Interventional Cardiology for ?questions. ? Conclusions: ?* [...] ??09:37 ? Leti Nguyen MD CARDIAC CATH YENIFERA BLEGenoveva * Differential, Automated (08/28/2022 10:50 AM EDT) Neutrophil % 63.1 % [facility] Neutrophil Absolute 3.84 1.70 - 6.10 x10(3)/[facility] Lymph % 19.0 % [facility] Lymphocytes Abs 1.2 0.9 - 3.2 x10(3)/[facility] Monocyte % 14.3 % [facility] Monocyte Abs 0.9 0.3 - 0.9 x10(3)/[facility] Eos % 2.6 % [facility] Eosinophils Abs 0.2 0.0 - 0.4 x10(3)/[facility] Basophil % 0.7 % [facility] Baso Absolute 0.0 0.0 - 0.1 x10(3)/[facility] Immature Gran % 0.30 % [facility] Comment: Immature granulocytes(IG's)percentage and absolute count will include metamyelocytes, myelocytes, and promyelocytes. Blood smears from CBCs yielding IG's will be scanned manually for concordance. If this scan disagrees with the automated IG or if promyelocytes are noted, a manual differential will be performed. Immature Gran Absolute 0.02 0.00 - 0.04 x10(3)/[facility] Blood 08/28/2022 10:5 0 AM EDT 08/28/2022 10:56 AM EDT Narrative Resulting Agency Comment Spec In Lab Leti Nguyen MD HEMATOLOGY ORDERABL ES [facility] [address] * (ABNORMAL) Hemogram (08/28/2022 10:50 AM EDT) White Blood Cell 6.1 4.0 - 9.5 x10(3)/mc L [facility] Red Blood Cell 3.90(L) 4.58 - 5.54 x10(6)/mc L [facility] Hemoglobin 12.5(L) 13.7 - 16.5 g/dL [facility] Hematocrit 37.3(L) 40.5 - 48.5 % [facility] Mean Cell Volume 95.6(H) 82.9 - 93.1 fL [facility] Mean Cell Hemoglobin 32.1 27.5 - 32.1 pg [facility] Mean Cell Hemoglobin Concentration 33.5 32.0 - 35.7 g/dL [facility] Platelet 245 145 - 357 x10(3)/mc L [facility] RDW Standard Deviation 46.3(H) 36.0 - 45.0 fL [facility] RDW coefficient of variation 13.2 11.4 - 13.8 % [facility] Mean Platelet Volume 8.8 7.6 - 12.9 fL [facility] NRBC% auto 0.0 % [facility] NRBC Absolute 0.000 0.000 - 0.000 x10(3)/mc L [facility] Blood 08/28/2022 10:5 0 AM EDT 08/28/2022 10:56 AM EDT Narrative Resulting Agency Comment Spec In Lab Leti Nguyen MD HEMATOLOGY ORDERABL ES [facility] [address] [place] [address] * (ABNORMAL) BMP w/fasting Glucose (08/28/2022 10:50 AM EDT) Glucose Fasting 104(H) 65 - 99 mg/dL [facility] Comment: ?Fasting* Glucose Interpretive Criteria Normal [...] of Diabetes Mellitus, Position Statement from the [place] [employer]. ??Diabetes Care, Volume 33, Supplement 1, May 2009 Blood Urea Nitrogen 15 10 - 20 mg/dL [facility] Creatinine 0.81 0.80 - 1.50 mg/dL [facility] Sodium 140 135 - 145 mmol/L [facility] Potassium 4.6 3.5 - 5.0 mmol/L [facility] Comment: Please note: ??Patients with WBC >100,000 may have falsely elevated Potassium levels. ??For accurate Potassium quantification in these patients send serum separator tube (gold top) for subsequent determinations. ??Contact the Clinical Chemistry Laboratory if there are any questions. Chloride 102 98 - 107 mmol/L [facility] Carbon Dioxide 29 22 - 31 mmol/L [facility] Anion Gap 9 5 - 15 mmol/L [facility] Calcium 9.6 8.5 - 10.5 mg/dL [facility] Est Glomerular Filtration Rate 90 >=60 mL/min/1. 73 m?? [facility] Comment: This patient's estimated GFR was [...] Lab Leti Nguyen MD CHEMISTRY ORDERABLE S [facility] [address] documented in this encounter Visit Diagnoses Diagnosis Chest pain, unspecified type Coronary artery disease, unspecified vessel or lesion type, unspecified whether angina present, unspecified whether [place] or transplanted heart Chest pain, unspecified type documented in this encounter Admitting Diagnoses Diagnosis CAD (coronary artery disease) Coronary atherosclerosis of unspecified type of vessel, [place] or graft documented in this encounter Administered Medications Inactive Administered Medications - up to 3 most recent administrations Medication Order MAR Action Action Date Dose Rate Site aspirin chewable tablet ONCE PRN, Starting on Wed08/28/22 at 1153, Until Wed08/28/22 at 1422, Intra-Operative (Intra-Procedure), Routine Given 08/28/2022 11:53 AM EDT 81 mg aspirin EC tablet 81 mg 81 mg, [...] Given 08/29/2022 8:55 AM EDT 75 mg clopidogreL (Plavix) tablet ONCE PRN, Starting on Wed08/28/22 at 1300, Until Wed08/28/22 at 1422, Intra-Operative (Intra-Procedure), Routine Given 08/28/2022 1:00 PM EDT 600 mg fentaNYL (pf) (50 mcg/mL) multi-dose injection ONCE PRN, Starting on Wed08/28/22 at 1211, Until Wed08/28/22 at 1422, Intra-Operative (Intra-Procedure), Routine Given 08/28/2022 12:11 PM EDT 25 mcg heparin (porcine) (1,000 units/mL) injection ONCE PRN, Starting on Wed08/28/22 at 1231, Until Wed08/28/22 at 1422, Intra-Operative (Intra-Procedure), Routine Given 08/28/2022 2:00 PM EDT 1,000 Units Given 08/28/2022 1:04 PM EDT 2,000 Units Given 08/28/2022 12:31 PM EDT 4,000 Units iohexoL (Omnipaque) (350 mg/mL) solution ONCE PRN, Starting on Wed08/28/22 at 1421, Until Wed08/28/22 at 1422, Intra-Operative (Intra-Procedure), Routine Given 08/28/2022 2:21 PM EDT 207 mLs metoprolol succinate XL (Toprol-XL) tablet 12.5 mg 12.5 mg, Oral, DAILY, First dose on 08/29/22 at 0900, Until Discontinued, DO NOT CRUSH OR OPEN, Routine Given 08/29/2022 8:54 AM EDT 12.5 mg midazolam (pf) (Versed) (1 mg/mL) multi-dose injection ONCE PRN, Starting on Wed08/28/22 at 1211, Until Wed08/28/22 at 1422, Intra-Operative (Intra-Procedure), Routine Given 08/28/2022 12:11 PM EDT 1 mg nitroGLYcerin 100 mcg/mL intracoronary dilution ONCE PRN, Starting on Wed08/28/22 at 1225, Until Wed08/28/22 at 1422, Intra-Operative (Intra-Procedure), Routine Given 08/28/2022 2:04 PM EDT 200 mcg Given 08/28/2022 12:25 PM EDT 150 mcg sodium chloride 0.9% infusion 200 mL/hr, Intravenous, CONTINUOUS, Starting on Wed08/28/22 at 1515, Until Wed08/28/22 at 1914, Recovery (Recovery-Hospital Unit) Continued Bag 08/28/2022 4:24 PM EDT 200 mL/hr 200 mL/hr New Bag 08/28/2022 3:00 PM EDT 200 mL/hr 200 mL/hr verapamiL (Isoptin) (2.5 mg/mL) injection ONCE PRN, Starting on Wed08/28/22 at 1226, Until Wed08/28/22 at 1422, Administer over 2 Minutes, Intra-Operative (Intra-Procedure) Given 08/28/2022 12:26 PM E DT 2.5 mg documented in this encounter Active and Recently Administered Medications Times are shown in EDT. Scheduled Medication Order 08/27/2022 08/28/2022 08/29/2022 aspirin EC tablet 81 mg 81 mg, Oral, DAILY, First dose on Wed08/29/22 at 0900, Until Discontinued, Recovery (Recovery-Hospital Unit), Routine 0854 (Given - Provid er: Travis Solorio RN) atorvastatin (Lipitor) tablet 40 mg (COMPLETED) 40 mg, Oral, DAILY, 2 doses, First dose on Wed08/28/22 at 2100, Last dose on Wed08/30/22 at 0900, Routine 2025 (Given - Provider: Joshua Aguiar RN) 0854 (Given - Provider: Travis Solorio RN - Comment: normally takes in Am) clopidogreL (Plavix) tablet 75 mg 75 mg, Oral, DAILY, First dose on Wed08/29/22 at 0900, Until Discontinued, Recovery (Recovery-Hospital Unit), [...] Kiley Mcduffie RN)1304 (Given - Provider: Kiley J Mcduffie, RN)1400 (Given - Provider: Trish Beltre RN) iohexoL (Omnipaque) (350 mg/mL) solution (CANCELED) [...] DO) documented in this encounter Care Teams Stacker Relationship Specialty Start Date End Date Kadi [place] [address] PCP - General Family Medicine 07/28/16 documented as of this encounter
--- OUTSIDE RECORDS SUMMARY | 2024-06-20 01:28 | XMS_ITS | Encounter Summary ---
[place] [address] Care Team Providers Care Electrician Supervisor Substation Name Role Phone Kadi Lane Primary Care Provider [phone] Reason for Visit * Consultation (Routine) - Closed Specialty Diagnoses / Procedures Referred By Contmarlys t Referred To Contact Hematology and Oncology Diagnoses Non-small cell cancer of right lung Landen Goodman MD [address] [place] [address] [facility] [place] [address] [place] [address] Referral ID Status Reason Start Date Expiration Date V isits Requested Visits Authorized [id number] Closed Consult, Test & Treat 07/23/2022 07/23/2023 1 1 Encounter Details Date Type Department Care Team (Latest Contact Info) Description 08/14/2022 9:30 AM EDT - 08/14/2022 11:29 AM EDT Hospital Encounter [place] [address] Squamous cell carcinoma of right lung Discharge Disposition: Home Social History Tobacco Use Types Packs/Day Years Used Date Smoking Tobacco: Former Cigarettes 2 32 1 356 - 1987 Smokeless Tobacco: Former Alcohol Use [...] a senior care (including now)? No 08/14/2022 Sex and Gender Information Value Date Recorded [...] AM EST Office Visit Hematology/Oncology at [address] [phone] Lia Barber [address] [place]AT[place] [address] 06/20/2024 10:30 AM EST Infusion Hematology Oncology at [address] [phone] 07/04/2024 11:00 AM EST Office Visit Hematology/Oncology at [address] [phone] [place]ATOLOG[place] [address] 07/04/2024 11:30 AM EST Infusion Hematology Oncology at [address] [phone] documented as of this encounter Visit Diagnoses Diagnosis Squamous cell carcinoma of right lung documented in this encounter Care Teams Electrician Supervisor Substation Relationship Specialty Start Date End Date Kadi Lane PA [facility] [place] [address] PCP - General Family Medicine 07/28/16 documented as of this encounter
--- OUTSIDE RECORDS SUMMARY | 2024-06-20 01:28 | XMS_ITS | Encounter Summary ---
Author Organization [facility] [place] [address] Care Team Providers Care Account Executive Healthcare Name Role Phone Kadi Lane Primary Care Provider [phone] Reason for Visit * Auth/Cert (Routine) Specialty Diagnoses / Procedures Referred By Contac t Referred To Contact Diagnoses Pleural effusion Post-Op Pain MangLanden Garland MD [address] [place] [address] [facility] Referral ID Status Reason Start Date Expiration Date Visits Re quested Visits Authorized [id number] 1 1 Encounter Details Date Type Department Care Team (Latest Contact Info) Description 07/21/2022 7:30 AM EST - 07/21/2022 8:59 AM EST Hospital Encounter XRay at [address] [place] [address] Right lower lobe lung mass; Recurrent pleural effusion on right Discharge Disposition: Home Social History Tobacco Use Types Packs/Day Years Used Date Smoking Tobacco: Former Cigarettes 2 32 1 956 - 1987 Smokeless Tobacco: Former Alcohol Use Standard Drinks/Week Comments Not Currently 0 (1 standard drink = 0.6 oz pur e alcohol) Sex and Gender Information Value Date Recorded Sex Assigned at Male 10/05/2023 6:23 PM EDT Gender Identity Male 10/05/2023 6:23 PM EDT Sexual Orientation Straight 10/05/2023 6: 23 PM EDT documented as of this encounter Medications at Time of Discharge Medication Sig Dispensed Refills Start Date End Date nitroGLYcerin (Nitrostat) 0.4 mg Tablet, SublingualIndications:Ch est [...] AM EST Office Visit Hematology/Oncology at [address] [phone] Lia Barber USER SUPPORT SPECIALIST [address] [place] [address] [place] [address] 06/20/2024 10:30 AM EST Infusion Hematology Oncology at [address] [phone] 07/04/2024 11:00 AM EST Office Visit Hematology/Oncology at [address] [phone] [address]ia Barber [address] [place] [address] 07/04/2024 11:30 AM EST Infusion Hematology Oncology at [address] [phone] documented as of this encounter Procedures Procedure Name Priority Date/Time Associated Diagnosis Comments XR CHEST PA AND LATERAL Routine 07/21/2022 8:12 AM EST Right lower lobe lung mass Recurrent pleural effusion on right documented in this encounter Results * XR Chest PA & Lateral (Generic) (07/21/2022 8:12 AM EST) Anatomical Region Laterality Modality Chest N/A Digital Radiogra phy Impressions 07/21/2022 2:17 PM EST 1. ??Redemonstration of right lower lobe pleural-based mass. 2. ??Small to moderate right-sided effusion. Trace left effusion. I have personally reviewed the image(s) and the resident's interpretation and agree with the findings, Kwaku Padron MD at 07/21/2022 2:17 PM Thank you for letting us participate in the care of this patient. ??If you are a health care provider and have any questions regarding this report, please contact the number below. ??For patients who have questions please contact the health account executive healthcare that requested your imaging first. ? Electronically signed by: Kwaku Padron MD, [facility] ([phone]), at 07/21/2022 2:17 PM Narrative 07/21/2022 2:17 PM EST EXAMINATION: XR CHEST PA AND LATERAL (GENERIC) CLINICAL HISTORY: hx of Right sided pleural effusion, please eval for changes, effusion, other findings. TECHNIQUE: PA and lateral views of the chest COMPARISON: CT chest 06/19/22 FINDINGS: The patient is slightly rotated to right. Cardiomediastinal silhouette and hilar contours are within normal limits. There is a soft tissue opacity in the right lower lobe, consistent with pleural-based mass seen on CT chest 06/19/2022. There is a small to moderate right-sided effusion. Trace left effusion. No pneumothorax. Calcified pleural plaques are again seen. No acutely displaced fracture. Procedure Note Kwaku Padron MD - 07/21/2022 EXAMINATION: XR CHEST PA AND LATERAL (GENERIC) CLINICAL HISTORY: hx of Right sided pleural effusion, please eval forchanges, effusion, other findings. TECHNIQUE: PA and lateral views of the chest COMPARISON: CT chest 06/19/22 FINDINGS: The patient is slightly rotated to right. Cardiomediastinal silhouette andhilar contours are within normal limits. There is a soft tissue opacity in theright lower lobe, consistent with pleural-based mass seen on CT chest 06/19/2022.There is a small to moderate right-sided effusion. Trace left effusion. No pneumothorax. Calcified pleural plaques are again seen. No acutelydisplaced fracture. IMPRESSION 1. Redemonstration of right lower lobe pleural-based mass. 2. Small to moderate right-sided effusion. Trace left effusion. I have personally reviewed the image(s) and the resident's interpretationand agree with the findings, Kwaku Padron MD at 07/21/2022 2:17 PM Thank you for letting us participate in the care of this patient. If youare a health care provider and have any questions regarding this report,please contact the number below. For patients who have questions please contactthe health account executive healthcare that requested your imaging first. Electronically signed by: Kwaku Padron MD, [facility]([phone]), at 07/21/2022 2:17 PM Landen Goodman MD IMG DX ORDERABLES documented in this encounter Visit Diagnoses Diagnosis Right lower lobe lung mass Swelling, mass, or lump in chest Recurrent pleural effusion on right Unspecified pleural effusion documented in this encounter Care Teams Account Executive Healthcare Relationship Specialty Start Date End Date Kadi Lane PA [address] [place] [address] PCP - General Family Medicine 07/28/16 documented as of this encounter
--- OUTSIDE RECORDS SUMMARY | 2024-06-20 01:28 | XMS_ITS | Encounter Summary ---
[place] [address] Care Team Providers Care Heavy Truck Technician Name Role Phone Kadi Lane Primary Care Provider [phone] Reason for Referral * Consultation (Routine) - Closed Specialty Diagnoses / Procedures Referred By Contmarlys t Referred To Contact Hematology and Oncology Diagnoses Non-small cell cancer of right lung Landen Goodman MD [address] [place] [address] [facility] [place] [address] [place] [address] Referral ID Status Reason Start Date Expiration Date V isits Requested Visits Authorized [id number] Closed Consult, Test & Treat 07/23/2022 07/23/2023 1 1 Encounter Details Date Type Department Care Team (Late st Contact Info) Description 07/23/2022 Orders [place] [address] Landen Goodman MD [address] [place] [address] Non-small cell cancer of right lung Social [...] AM EST Office Visit Hematology/Oncology at [address] [phone] [address] [place] [address] 06/20/2024 10:30 AM EST Infusion Hematology Oncology at [address] [phone] 07/04/2024 11:00 AM EST Office Visit Hematology/Oncology at [address] [phone] [facility] [address] [place] [address] 07/04/2024 11:30 AM EST Infusion Hematology Oncology at [address] [phone] Scheduled Referrals Name Type Priority Associated Diagnoses Order Schedule Referral to Hematology and Oncology Outpatient Referral Routine Non-small cell cancer of right lung Ordered: 07/23/2022 documented as of this encounter Visit Diagnoses Diagnosis Non-small cell cancer of right lung documented in this encounter Care Teams Heavy Truck Technician Relationship Specialty Start Date End Date Kadi Lane PA [address] [place] [address] PCP - General Family Medicine 07/28/16 documented as of this encounter
--- OUTSIDE RECORDS SUMMARY | 2024-06-20 01:28 | XMS_ITS | Encounter Summary ---
[place] [address] Care Team Providers Care Polymerization Helper Name Role Phone Kadi Lane Primary Care Provider [phone] Reason for Referral * Consultation (Routine) - Closed Specialty Diagnoses / Procedures Referred By Jorge Luis t Referred To Contact Radiation Oncology Diagnoses Non-small cell cancer of right lung Landen Goodman MD [address] [place] [address] Enrrique Tafoya MD [address] [place] [address] [place] [address] Referral ID Status Reason Start Date Expiration Date V isits Requested Visits Authorized [id number] Closed Consult, Test & Treat 07/23/2022 07/23/2023 1 1 Encounter Details Date Type Department Care Team (Late st Contact Info) Description 07/23/2022 Orders Only [place] [address] Landen Goodman MD [address] [place] [address] Right lower lobe lung mass; Non-small cell cancer of right lung Social [...] AM EST Office Visit Hematology/Oncology at [address] [phone] [address] HEMATOLOGY AND ONCOLOGY [place], [place] [phone] 06/20/2024 10:30 AM EST Infusion Hematology Oncology at [address] [phone] 07/04/2024 11:00 AM EST Office Visit Hematology/Oncology at [address] [phone] HEMATOLOGY AND ONCOLOGY [place], [place] [phone] 07/04/2024 11:30 AM EST Infusion Hematology Oncology at [address] [phone] Scheduled Referrals Name Type Priority Associated Diagnoses Orde r Schedule Referral to Radiation Oncology Outpatient Referral Routine Non-small cell cancer of right lung Ordered: 07/23/2022 documented as of this encounter Visit Diagnoses Diagnosis Right lower lobe lung mass Swelling, mass, or lump in chest Non-small cell cancer of right lung documented in this encounter Care Teams Polymerization Helper Relationship Specialty Start Date End Date Kadi Lane PA [facility] [place] [address] PCP - General Family Medicine 07/28/16 documented as of this encounter
--- OUTSIDE RECORDS SUMMARY | 2024-06-20 01:28 | XMS_ITS | Encounter Summary ---
Author Organization [facility] [place] [address] Care Team Providers Care Inventory Control Supervisor Name Role Phone Kadi Lane Primary Care Provider [phone] Encounter Details Date Type Department Care Team (Latest Contact Info) Description 08/14/2022 Travel Social History Tobacco Use Types Packs/Day Years Used Date Smoking Tobacco: Former Cigarettes 2 32 1 956 - 6584 Smokeless Tobacco: Former Alcohol Use Standard Drinks/Week [...] in a detention (including now)? No 08/14/2022 Sex and Gender Information Value Date Recorded Sex Assigned at Male 10/05/2023 6:23 PM EDT Gender Identity Male 10/05/2023 6:23 PM EDT Sexual Orientation Straight 10/05/2023 6: 23 PM EDT documented as of this encounter Plan of Treatment Upcoming Encounters Date Type Department Care Team (Late st Contact Info) Description 06/20/2024 10:00 AM EST Office Visit Hematology/Oncology at [address] [phone] Lia Barber [address] HEMATOLOGY AND ONCOLOGY [place], [place] [phone] 06/20/2024 10:30 AM EST Infusion Hematology Oncology at [address] [phone] 07/04/2024 11:00 AM EST Office Visit Hematology/Oncology at [address] [phone] [address] HEMATOLOGY [place] [address] 07/04/2024 11:30 AM EST Infusion Hematology Oncology at [address] [phone] documented as of this encounter Visit Diagnoses Not on filedocumented in this encounter Care Teams Inventory Control Supervisor Relationship Specialty Start Date End Date Kadi Lane PA [facility] [place] [address] PCP - General Family Medicine 07/28/16 documented as of this encounter
--- OUTSIDE RECORDS SUMMARY | 2024-06-20 01:28 | XMS_ITS | Encounter Summary ---
[place] [address] Care Team Providers Care Bullet Assembly Press Setter Operator Name Role Phone Kadi Lane Primary Care Provider [phone] Reason for Visit * Reason Onset Date Comments Other 07/09/2022 Encounter Details Date Type Department Care Team (Late st Contact Info) Description 07/09/2022 Telephone [place] [address] Demetria Valdez RN Other Social History Tobacco Use Types Packs/Day Years [...] encounter Miscellaneous Notes * Telephone Encounter - Demetria Valdez RN - 07/09/2022 11:46 AM ESTSummary: other TC to MrDonell And Mrs. Xiong Hx: RLL lung mass awaiting Cardiac catheterization date Spoke with Mrs. Xiong in regard to a CT guided biopsy of Right lower lobe lung mass and chest tube placement with Interventional Radiology for tomorrow Wednesday07/10/2022. She is stating that they are not able to come tomorrow for this procedure due to the weather. She stated that next week will work. TC back to And Mrs. Tyrese Xiong is now aware that the procedure has been moved to WednesdayJuly 15 with an admission following. Mrs. Xiong is in agreement with this date and is aware of the arrival time of 08:30am, nothing to eat or drink after midnight and he needs a hyster driver. She knows to call with any questions or concerns. documented in this encounter Plan of Treatment Upcoming Encounters Date Type Department Care Team (Late st Contact Info) Description 06/20/2024 10:00 AM EST Office Visit Hematology/Oncology at [address] [phone] [address] [place] [address] 06/20/2024 10:30 AM EST Infusion Hematology Oncology at [address] [phone] 07/04/2024 11:00 AM EST Office Visit Hematology/Oncology at [address] [phone] [place] [address] 07/04/2024 11:30 AM EST Infusion Hematology Oncology at [address] [phone] documented as of this encounter Visit Diagnoses Not on filedocumented in this encounter Care Teams Bullet Assembly Press Setter Operator Relationship Specialty Start Date End Date Kadi Lane PA [facility] [place] [address] PCP - General Family Medicine 07/28/16 documented as of this encounter
--- OUTSIDE RECORDS SUMMARY | 2024-06-20 01:28 | XMS_ITS | Encounter Summary ---
[place] [address] Care Team Providers Care Packaging Design Engineer Name Role Phone Kadi Lane Primary Care Provider [phone] Encounter Details Date Type Department Care Team (Late st Contact Info) Description 08/06/2022 Telephone [place] [address] Ari Urena Social History Tobacco Use Types Packs/Day Years [...] encounter Miscellaneous Notes * Telephone Encounter - Ari Urena - 08/06/2022 10:05 AM EDT Faxed MRI order to [facility] [phone] documented in this encounter Plan of Treatment Upcoming Encounters Date Type Department Care Team (Late st Contact Info) Description 06/20/2024 10:00 AM EST Office Visit Hematology/Oncology at [address] [phone] [address] HEMATOLOGY AND ONCOLOGY [place], [place] [address] 06/20/2024 10:30 AM EST Infusion Hematology Oncology at [address] [phone] 07/04/2024 11:00 AM EST Office Visit Hematology/Oncology at [address] [phone] [address] HEMATOLOGY AND ONCOLOGY [place], [place] [phone] 07/04/2024 11:30 AM EST Infusion Hematology Oncology at [address] [phone] documented as of this encounter Visit Diagnoses Not on filedocumented in this encounter Care Teams Packaging Design Engineer Relationship Specialty Start Date End Date Kadi Lane PA [address] [place] [address] PCP - General Family Medicine 07/28/16 documented as of this encounter
--- OUTSIDE RECORDS SUMMARY | 2024-06-20 01:28 | XMS_ITS | Encounter Summary ---
[place] [address] Care Team Providers Care Front Office Associate Name Role Phone Kadi Lane Primary Care Provider [phone] Reason for Referral * Diagnostic Test (STAT) - Closed Specialty Diagnoses / Procedures Referred By Contac t Referred To Contact Radiology Diagnoses Right lower lobe lung mass Recurrent pleural effusion on right Procedures CT Guided Drain Chest Tube/Pleural Drain IR Chest Tube Placement Right Landen Goodman MD [address] [place] [address] [place] [address] Referral ID Status Reason Start Date Expiration Date V isits Requested Visits Authorized [id number] Closed Specialty Service Requested 07/09/2022 01/07/2024 1 1 * Diagnostic Test (STAT) - Closed Specialty Diagnoses / Procedures Referred By Contac t Referred To Contact Radiology Diagnoses Right lower lobe lung mass Recurrent pleural effusion on right Procedures CT Guided Biopsy Lung Landen Goodman MD [address] [place] [id number] [facility] [place] [address] Referral ID Status Reason Start Date Expiration Date V isits Requested Visits Authorized [id number] Closed Specialty Service Requested 07/09/2022 01/07/2024 1 1 Reason for Visit * Auth/Cert (Routine) Specialty Diagnoses / Procedures Referred By Contac t Referred To Contact Diagnoses Pleural effusion Post-Op Pain Mangement Landen Goodman MD [address] [place], [place] [id number] [facility] Referral ID Status Reason Start Date Expiration Date Visits Re quested Visits Authorized [id number] 1 1 Encounter Details Date Type Department Care Team (Latest Contact Info) Description 07/21/2022 9:21 AM EST - 07/21/2022 2:55 PM EST Hospital [place] [phone] Landen Goodman MD [address] [place] [address] Right lower lobe lung mass; Recurrent pleural [...] Sign Reading Time Taken Comments Blood Pressure 186/52 07/21/2022 2:30 PM EST Pulse 55 07/21/2022 12:13 PM EST Temperature 36.4 ??C (97.6 ??F) 07/21/2022 12:[address] Respiratory Rate 20 07/21/2022 2:30 PM EST Oxygen Saturation 97% 07/21/2022 2:30 PM EST Inhaled Oxygen Concentration - - Weight - - Height - - Body Mass Index - - documented in this encounter Discharge Instructions * Discharge Instructions* Meg Godwin RN - 07/21/2022 10:31 AM EST [facility] Vascular and Interventional Radiology Right Lung Biopsy Biopsy Discharge Instructions Call your doctor immediately if you develop a sudden onset of weakness, increased pain or swelling at the biopsy site or heavy bleeding at the biopsy site. Lung biopsy: coughing up a little blood is common during the next 24 hours. If large blood clots come up, or if the bleeding gets worse, you should contact us or your doctor immediately. The most common complication is collapse of the lung. The symptoms of lung collapse are increasing pain on breathing, often extending into the shoulder on the side of the biopsy, and increasing difficulty breathing. If these symptoms occur after you leave the hospital, have someone drive you to the nearest Emergency Department as it must be treated promptly or call 911. Activity And Diet: Go home and rest quietly for the remainder of the day. You may resume your normal activities tomorrow. Resume your usual diet after the procedure. Do not drive, sign any important/legal documents, or make any important decisions for 24 hours following sedation medications. You have received medication during your procedure to help lessen anxiety and keep you comfortable.These medications affect judgement and reaction time. We recommend that you do not drive, operate equipment, sign any important documents, or smoke unattended for 24 hours following your procedure. Because of the sedation, be careful on stairs, as you may be unsteady on your feet. When to call your healthcare provider: If you see any redness, swelling or drainage at the biopsy site. If you develop chills. If you have a fever greater than or equal to 101 degrees Fahrenheit. If you develop pain around the biopsy site. Bandage: Check the dressing/bandaid throughout the day for an increase in drainage. Keep the biopsy site dryfor 24 hours. Replace the bandaid as needed. You may shower 24 hours after the biopsy. Medication: DO NOT take aspirin-containing products, ibuprofen, or blood-thinning medication for the next 24 hours unless your clinician says you may do so. Generally you may use acetaminophen as needed for discomfort unless you have liver disease and are instructed not to take acetaminophen. Biopsy Results The results of your biopsy should be available within 5 business days and will be reported to you by your primary home health caregiver or the clinician who ordered the biopsy. Please do not call us for results as we will not have them. If you have not been contacted by your clinician within 5 business days you should call that officefor further information. When to call the Interventional Radiology Department: Please call with any questions or concerns. If it is during regular office hours, please call [phone]. If it is after regular office hours, or on weekends or holidays, please call [phone] and ask to speak to the Telephone Order Supervisor shipping lead person for Interventional Radiology. documented in this encounter Medications at Time [...] as of this encounter Progress Notes * Meg Godwin RN - 07/21/2022 10:29 AM EST [facility] NURSING DATABASE Name: Marco Antonio Xiong Date of : 1945 AGE: 76 y.o. Address: [address] [address] (home) Mobile: Telephone Information: Referring Provider: Landen Goodman REASON FOR VISIT: Order Questions Answers Where will study be performed? [facility] Radiology [120] Laterality Right Is the patient on anticoagulant / antiplatelet therapy ? Aspirin Does the patient have any pertinent outside imaging? No Reason for exam and clinical history: URGENT need for CT guided biopsy of RIGHT LOWER LOBE LUNG MASS, having cardiac catheter 07/14/2022, please perform biopsy for tissue diagnosis and pathology Clinical information / henderson questions for radiologist: RIGHT LOWER LOBE LUNG MASS, non diagnostic Navigational Bronchoscopy with biopsy and need diagnosis prior to cardiac catheter Planned procedure: 1. CT-guided RIGHT lung mass biopsy 2. CT-guided RIGHT chest tube placement Labs to be performed day of procedure: No labs Sedation: Moderate (Conscious sedation) Prophylactic antibiotic : None Contrast: No contrast Additional medications for procedure: Lidocaine Consent: Pending Medications to discontinue (and days held): None Case Urgency:: F- Elective OUT-patient intervention within 3 days No Known Allergies Pertinent PMH: Patient Active Problem List Diagnosis Code ??? 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 Onto table supine. All monitors, O2, safety strap in place. Meds per protocol. Laboratory Results: Lab Results Component Value Date CREATININE 0.80 07/07/2022 Lab Results Component Value Date K 4.7 07/07/2022 Lab Results Component Value Date PLATELET 288 07/07/2022 documented in this encounter H&P Notes * Danny Barrios MD - 07/21/2022 9:37 AM EST INTERVENTIONAL RADIOLOGY FOCUSED H&P: Procedure: The patient's history and physical exam have been reviewed and completed. There has been no interval change from that of the pre-operative history and physical exam done within the last 30 days. Physical Exam: Cardiovascular: Regular, Normal Pulmonary: Breath sounds clear to auscultation The planned procedure (and sedation plan if appropriate) , its benefits and risks, and alternativeswere discussed with the patient. The patient consented to the procedure. PRE-SEDATION ASSESSMENT: Sedation Plan: moderate (conscious sedation) ASA: 2: Patient with mild systemic disease Mallampati: II: tonsillar pillars are blocked by the tongue Confirm NPO status: Yes History of anesthetic complications: No Current medications reviewed: Yes Allergies reviewed: Yes Source Note - Ashley Prakash PA - 07/14/2022 1:53 PM EST 13:50- S/W Demetria Valdez, Thoracic Surgery RN, regarding plan for patient tomorrow. Patient has a clinic appointment with Dr. Quinn at 08:15 tomorrow morning. He will be admitted to the Thoracic Surgery service directly from clinic then sent to IR for CT-guided R lung biopsy and R chest tube scheduled at 09:40. documented in this encounter Miscellaneous Notes * Brief Op Note - Danny Barrios MD - 07/21/2022 12:05 PM EST INTERVENTIONAL RADIOLOGY BRIEF PROCEDURE NOTE Operators: Danny Barrios MD, Attending Patient Name: Marco Antonio Xiong 07/21/22 Post-operative diagnosis/Indication: lung mass, pleural effusion Procedure Performed: lung biopsy and pleural drain placmeent Findings of the procedure: uneventful EBL: <10 mL Complications: No immediate Plan/Disposition: Recovery in interventional radiology postprocedure unit, then return to inpatientunit for further care. FULL PROCEDURE NOTE TO FOLLOW IN IMAGE REPORT documented in this encounter Plan of Treatment Upcoming Encounters Date Type Department Care Team (Late st Contact Info) Description 06/20/2024 10:00 AM EST Office Visit Hematology/Oncology at [address] [phone] Lia Barber, [address] HEMATOLOGY AND ONCOLOGY [place], [place] [phone] 06/20/2024 10:30 AM EST Infusion Hematology Oncology at [address] [phone] 07/04/2024 11:00 AM EST Office Visit Hematology/Oncology at [address] [phone] HEMATOLOGY AND ONCOLOGY [place], [place] [phone] 07/04/2024 11:30 AM EST Infusion Hematology Oncology at [address] [phone] documented as of this encounter Procedures Procedure Name Priority Date/Time Associated Diagnosis Comments CT GUIDED BIOPSY LUNG STAT 07/21/2022 12:15 PM EST Right lower lobe lung mass Recurrent pleural effusion on right CT GUIDED DRAIN CHEST TUBE/PLEURAL DRAIN STAT 07/21/2022 12:15 PM EST Right lower lobe lung mass Recurrent pleural effusion on right 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 07/21/2022 11:55 AM EST HC BODY FLUID CELL COUNT Routine 07/21/2022 11:55 AM EST HC TRIGLYCERIDES Routine 07/21/2022 11:5 5 AM EST HC PROTEIN,TOTAL,BODY FLUID Routine 07/21/2022 11:55 AM EST HC LACTIC DEHYDROGENASE Routine 07/21/2022 11:55 AM EST SURGICAL PATHOLOGY REPORT Routine 07/21/2022 11:50 AM EST SPECIMEN TO PATHOLOGY Routine 07/21/2022 11:12 AM EST CYTOPATHOLOGY NON-GYNECOLOGICAL Routine 07/21/2022 10:33 AM EST documented in this encounter Results * CT Guided Drain Chest Tube/Pleural Drain (07/21/2022 12:15 PM EST) Anatomical Region Laterality Modality Computed Tomogra phy Narrative 07/21/2022 2:40 PM EST Preoperative Diagnosis:right lower lobe lung Mass/nodule. Pleural effusion ?? Postoperative Diagnosis: Same. ?? Procedure Performed: CT-guided biopsy. And chest tube placement. Note: This CT exam was performed using one or more of the following dose reduction techniques: Automated exposure control, adjustment of the mA and/or kV according to patient size, or use of iterative reconstruction technique ?? Operators: Danny Barrios MD, Attending ?? Estimated Blood Loss: Less than 10 cc. ?? Anesthesia: 1. Conscious sedation with titrated Fentanyl and Versed during continuous hemodynamic monitoring including pulse oximetry, heart rate and blood pressure was provided by an independent qualified trained Nurse. ?? I was present during the intraservice time as documented by the IR Nurse. ?? Please see nursing notes for exact medication dosages. 2. 1% lidocaine, local. ?? The patient was informed of the risks, benefits, and alternatives to the procedure and gave written consent, which was then placed in the chart. ?? Appropriate time-out was performed prior to the procedure. ? Description of Procedure and Findings: The right chest was prepped and draped in the usual sterile fashion. ?? Local anesthetic was administered. ? Using CT guidance, a 17-gauge trocar needle was advanced into the right lower lobe mass. Through this needle, several 18-gauge core biopsies were obtained. The ??17 gauge trocar was pulled back into the pleural space, and fluid was aspirated. ??A stiff wire was then advanced into the pleural space and the needle was removed over the wire. ??The tract was dilated and a 10 Fr pigtail pleural drain was advanced over the wire into the pleural space and sutured into position. ??Fluid was removed for cytology. ?? The patient tolerated the procedure well. ? Impression: Uneventful CT-guided right lung biopsy and chest tube placement. ?? I, the attending Interventional Radiologist performed the entire procedure. Landen Goodman MD [facility] * CT Guided Biopsy Lung (07/21/2022 12:15 PM EST) Anatomical Region Laterality Modality Lung Computed Tomogra phy Narrative 07/21/2022 2:22 PM EST Preoperative Diagnosis:right lower lobe lung Mass/nodule. Pleural effusion Postoperative Diagnosis: Same. Procedure Performed: CT-guided biopsy. And chest tube placement. Note: This CT exam was performed using one or more of the following dose reduction techniques: Automated exposure control, adjustment of the mA and/or kV according to patient size, or use of iterative reconstruction technique Operators: Danny Barrios MD, Attending Estimated Blood Loss: Less than 10 cc. Anesthesia: 1. Conscious sedation with titrated Fentanyl and Versed during continuous hemodynamic monitoring including pulse oximetry, heart rate and blood pressure was provided by an independent qualified trained Nurse. ?? I was present during the intraservice time as documented by the IR Nurse. ?? Please see nursing notes for exact medication dosages. 2. 1% lidocaine, local. The patient was informed of the risks, benefits, and alternatives to the procedure and gave written consent, which was then placed in the chart. Appropriate time-out was performed prior to the procedure. Description of Procedure and Findings: The right chest was prepped and draped in the usual sterile fashion. ?? Local anesthetic was administered. ?? Using CT guidance, a 17-gauge trocar needle was advanced into the right lower lobe mass. Through this needle, several 18-gauge core biopsies were obtained. The ??17 gauge trocar was pulled back into the pleural space, and fluid was aspirated. ??A stiff wire was then advanced into the pleural space and the needle was removed over the wire. ??The tract was dilated and a 10 Fr pigtail pleural drain was advanced over the wire into the pleural space and sutured into position. ??Fluid was removed for cytology. The patient tolerated the procedure well. Impression: Uneventful CT-guided right lung biopsy and chest tube placement. I, the attending Interventional Radiologist performed the entire procedure. Landen Goodman MD [facility] [place] ORDERABLES * Non-President And Cmo Final Report (07/21/2022 11:55 AM EST) Diagnosis Discussion [id number] ? [facility] The signing pathologist has (i) examined the relevant preparation(s) for the specimen(s) and (ii) rendered or confirmed the diagnosis(es). . ? Non-President And Cmo Final DIAGNOSIS See Discussion Electronically signed by: ?Jonathan EMERSON, Wilberto Verified: ??07/22/2022 15:34 ??Pathologist Performed at: ??[facility] [place], [place] [address] Apple Checker: Brenda Garcia MD, FCAP, ??CLIA Certificate: [id number] DISCUSSION Pleural fluid, right (thoracentesis): The specimen consists predominantly of debris, a few scattered degenerated cells, ?and mixed inflammatory cells. ?? No overtly cytologically malignant cells seen. Clinical and radiologic correlation is recommended. Cell block was examined. Please see the concurrent surgical specimen of ?Lung, right lower lobe mass, biopsy, [id number]. CLINICAL INFORMATION Specimen Source : Pleural fluid, right (thoracentesis) Pertinent Clinical Data and Significant Therapy: Persistent right lower lobe lung mass and right pleural effusion s/p antibiotic course Clinical Impression : Possible malignancy Pertinent Radiologic Findings ??: (not provided) Gross Description: Received fresh, approximately 225 mL total volume of cloudy, brown fluid. Total Preparation: Liquid-Based Prep 1; Cell Block 1. 07/22/2022 3:34 PM EST [facility] RIGHT PLEURAL FLUID / Unknown 07/21/2022 11:55 AM EST 07/21/2022 11:55 AM EST [place] PATHOLOGY/CYTOLOGY ORDERABLES [facility] [place]ATORY [place], [place] [id number] [place] [address] [place] [address] * Protein Level Body Fluid Pleural, Right (07/21/2022 11:55 AM EST) Protein, Fluid 4.3 g/dL [facility] Comment: Reference intervals are unavailable for this test in body fluids. Comparison of this result with the concentration in blood, serum, or plasma is recommended. This test has not been cleared by the [place] FDA. Performance characteristics of this test for the analysis of body fluids were determined by [facility] in accordance with CLIA requirements. This laboratory is qualified under CLIA to perform high-complexity testing. Prot, Fld Type Pleural, Right [facility] Pleural, Right 07/21/2022 11 :55 AM EST 07/21/2022 12:17 PM EST Narrative Resulting Agency Comment Spec In Lab Landen Goodman MD BODY FLUIDS AND STOO LS ORDERABLES Performing Organization Address [facility] de Phone Number [facility] [place] [address] * Lactate Dehydrogenase Body Fluid Pleural, Right (07/21/2022 11:55 AM EST) Lactate Dehydrogenase, Fluid >2,500 unit/L [facility] Comment: Reference intervals are unavailable for this test in body fluids. Comparison of this result with the concentration in blood, serum, or plasma is recommended. This test has not been cleared by the [place] FDA. Performance characteristics of this test for the analysis of body fluids were determined by [facility] in accordance with CLIA requirements. This laboratory is qualified under CLIA to perform high-complexity testing. LDH, Fld Type Pleural, Right [facility] Pleural, Right 07/21/2022 11 :55 AM EST 07/21/2022 12:17 PM EST Narrative Resulting Agency Comment Spec In Lab Landen Goodman MD BODY FLUIDS AND STOO LS ORDERABLES Performing Organization Address City/[facility] Co de Phone Number [facility] [place] [address] * Triglyceride Level Body Fluid Pleural, Right (07/21/2022 11:55 AM EST) Triglyceride, Fluid 58 mg/dL [facility] Comment: Reference intervals are unavailable for this test in body fluids. Comparison of this result with the concentration in blood, serum, or plasma is recommended. This test has not been cleared by the [place] FDA. Performance characteristics of this test for the analysis of body fluids were determined by [facility] in accordance with CLIA requirements. This laboratory is qualified under CLIA to perform high-complexity testing. Trig, Fld Type Pleural, Right [facility] Pleural, Right 07/21/2022 11 :55 AM EST 07/21/2022 12:17 PM EST Narrative Resulting Agency Comment Spec In Lab Landen Goodman MD BODY FLUIDS AND ROSA ORDERABLES [facility] [place] [address] * Cell Count Body Fluid Pleural, Right (07/21/2022 11:55 AM EST) Body Fluid Source Pleural, Right [facility] Color, Fld [place] [facility] Appearance, Fld Cloudy [facility] WBC Count, Fld Not Measured <=499 [facility] Comment: Unable to result due to quality of specimen; accurate count cannot be performed due to large amounts of debris and degenerated cells. All body fluid results should always be interpreted in light of the total clinical presentation of the patient, including clinical history, data from additional tests and other appropriate information. Polymorphonuclear cells BF % Not Measured [facility] Comment: Unable to result due to quality of specimen; accurate differential cannot be performed due to large amounts of debris and degenerated cells. Polymorphonuclear cell percent and absolute values may contain Neutrophils, Eosinophils, and Basophils. Body fluid smear will be scanned manually for concordance. Mononuclear cells BF % Not Measured [facility] Comment: Mononuclear cell percent and absolute values may contain Lymphocytes and Monocytes. Body fluid smear will be scanned manually for concordance. Polymorphonuclear cells BF ABS Not Measured [facility] Comment: Polymorphonuclear cell percent and absolute values may contain Neutrophils, Eosinophils, and Basophils. Body fluid smear will be scanned manually for concordance. Mononuclear cells BF ABS Not Measured [facility] Comment: Mononuclear cell percent and absolute values may contain Lymphocytes and Monocytes. Body fluid smear will be scanned manually for concordance. Pleural, Right 07/21/2022 11 :55 AM EST 07/21/2022 12:17 PM EST Narrative Resulting Agency Comment Spec In Lab Landen Goodman MD BODY FLUIDS AND STOO LS ORDERABLES [facility] [place] [address] * Surgical Pathology Report (07/21/2022 11:50 AM EST) Final Diagnosis [id number] ? [facility] The signing pathologist has (i) examined the relevant preparation(s) for the specimen(s) and (ii) rendered or confirmed the diagnosis(es). . ? Addendum ADDENDUM DISCUSSION Tissue: ??Lung, right lower lobe mass, biopsy Diagnosis: Squamous cell carcinoma Tumor Proportion Score (TPS): ?% Expression: 5% Interpretation Table: PD-L1 assay (22C3 pharmDX) for Keytruda Tumor Proportion Score (TPS): ? <1% ?PD-L1 Negative ? >=1% ? PD-L1 Expression Immunohistochemical assay was performed on paraffin-embedded tissue sections fixed in 10% neutral buffered formalin for 6-72 hours using the polymer system technique with appropriate controls. The assay was performed according to the photographer aerial's instructions using Anti-PD-L1 (22C3, pharmDX) antibody. Electronically signed by: ?Rowena EMERSON, PhD, Shane Verified: ??07/23/2022 16:35 ??Pathologist Performed at: ??[facility] [place], [place] [address] Apple Checker: Brenda Garcia MD, FCAP, ??CLIA Certificate: [id number] ?Surgical Pathology DIAGNOSIS Lung, ??right lower lobe mass, biopsy: Squamous cell carcinoma Electronically signed by: ?Veronique Sanders MD Verified: ??07/23/2022 8:54 ?? Pathologist Performed at: ??-[facility] [place], [place] [address] Apple Checker: Brenda Garcia MD, FCAP, ??CLIA Certificate: [id number] DISCUSSION PD-L1 is ordered and will be reported separately. ADDITIONAL STUDIES Immunohistochemistry Studies: Formalin-fixed, paraffin-embedded tissue [...] diagnostic tests. Block ? Antibody ?Result (Positive/Negative) A2 ?p40 ?Positive ?TTF-1 ?Negative . SPECIMEN(S) SUBMITTED A - right lower lobe lung mass, biopsy (Multiple) CLINICAL INFORMATION Right lower lobe lung mass SPECIMEN PROCESSING A - Labeled/Fixative: Right lower lobe lung mass, formalin. Quantity/Size: Five, ranging from 0.4-1.7 x 0.1 cm Tissue Description: Sim-white needle core biopsies. Sections/Processing: Entirely submitted in 2 cassettes labeled A1-A2. ??nrl 07/23/2022 4:35 PM [facility] LUNG STRUCTURE / Unknown 07/21/2022 11:50 AM EST 07/21/2022 11:50 AM EST Danny Barrios MD PATHOLOGY/CYTOLOGY [place], [place] [id number] [place] [address] [place] [address] * Specimen to Pathology (07/21/2022 11:12 AM EST) AP Specimen 07/21/2022 11:1 2 AM EST 07/21/2022 11:12 AM EST Narrative [facility] - 07/21/2022 11:12 AM EST Specimen requisition ordered. ??Separate Pathology report to follow Danny Barrios MD PATHOLOGY/CYTOLOGY O STEPHY Performing Organization Address [facility]/ZIP Co de Phone Number [facility] [place] [address] * Cytopathology Non-Gynecological (07/21/2022 10:33 AM EST) AP Specimen 07/21/2022 10:3 3 AM EST 07/21/2022 10:33 AM EST Narrative [facility] - 07/21/2022 10:33 AM EST Specimen requisition ordered. ??Separate Pathology report to follow Landen Goodman MD PATHOLOGY/CYTOLOGY O STEPHY Performing Organization Address [facility] Co de Phone Number [facility] [place] [address] documented in this encounter Visit Diagnoses Diagnosis Right lower lobe lung mass Swelling, mass, or lump in chest Recurrent pleural effusion on right Unspecified pleural effusion documented in this encounter Administered Medications Inactive Administered Medications - up to 3 most recent administrations Medication Order MAR Action Action Date Dose Rate Site fentaNYL (pf) (50 mcg/mL) multi-dose injection 25-50 mcg 25-50 mcg, Intravenous, EVERY 3 MIN PRN, Starting on 07/21/22 at 0925, Until 07/21/22 at 1501, Pain, per unit protocol, For use in Interventional Radiology (IR) only for procedural sedation with direct provider supervision and verbal order. - Start dose: 50 mcg (reduce dose to 25 mcg if history of sedation sensitivity). - Titration dose: 25-50 mcg IV, (based on patient response) every 3 minutes PRN to maintain procedural pain less than 2 per Pain Scale. Maximum dose: 50 mcg/dose, 250 mcg/hour, Angio/IR (Intra-Procedure), Routine Given 07/21/2022 11:54 AM EST 25 mcg Given 07/21/2022 11:44 AM EST 25 mcg lidocaine (Xylocaine) 1% (10 mg/mL) injection 10 mg 10 mg, Subcutaneous, ONCE, 1 dose, On 07/21/22 at 0945, For use in Interventional Radiology (IR) only for procedure with direct provider supervision and verbal order., Angio/IR (Intra-Procedure), Routine Given 07/21/2022 11:48 AM EST 10 mg midazolam (pf) (Versed) (1 mg/mL) multi-dose injection 0.5-1 mg 0.5-1 mg, Intravenous, EVERY 3 MIN PRN, Starting on Wed07/21/22 at 0925, Until Tu07/21/22 at 1501, Sedation, For use in Interventional Radiology (IR) only for procedural sedation with direct provider supervision and verbal order. - Start dose: 1 mg (Reduce dose to 0.5 mg if history of sedation sensitivity). - Titration dose: 0.5 mg - 1 mg (based on patient response) every 3 minutes PRN to obtain RASS score of -3. Maximum dose: 1 mg/dose, 5 mg/hour., Angio/IR (Intra-Procedure), Routine Given 07/21/2022 11:44 AM EST 0.5 mg documented in this encounter Care Teams Front Office Associate Relationship Specialty Start Date End Date aKdi Lane [place] [address] PCP - General Family Medicine 07/28/16 documented as of this encounter
--- OUTSIDE RECORDS SUMMARY | 2024-06-20 01:28 | XMS_ITS | Encounter Summary ---
[place] [address] Care Team Providers Care Cytogenetics Laboratory Manager Name Role Phone Kadi Lane Primary Care Provider [phone] Encounter Details Date Type Department Care Team (Late st Contact Info) Description 07/15/2022 Telephone [place] [address] Mary Douglas, RN Social History Tobacco Use Types Packs/Day Years Used Date Smoking Tobacco: Former Cigarettes 2 32 1 936 - 1987 Smokeless Tobacco: Former Alcohol Use Standard Drinks/Week Comments Not Currently 0 (1 standard drink = 0.6 oz pur e alcohol) Sex and Gender Information Value Date Recorded Sex Assigned at Male 10/05/2023 6:23 PM EDT Gender Identity Male 10/05/2023 6:23 PM EDT Sexual Orientation Straight 10/05/2023 6: 23 PM EDT documented as of this encounter Miscellaneous Notes * Telephone Encounter - Mary Douglas RN - 07/15/2022 2:57 PM EST Phone call to Bhavna. I have discussed the seriousness of getting Marco Antonio in [place] for CT guided biopsy, so that we can diagnose and get him in with cardiac surgery. Initially Marco Antonio declined to reschedule, stating that he feels fine and wanted to wait to come in until after their early August vacation. We discussed the importance of Marco Antonio getting in here for biopsy [place] so that we can get him into cardiac cath [place]. They did agree to book the next available day. We will coordinate with IR and call them with a date. documented in this encounter Plan of Treatment Upcoming Encounters Date Type Department Care Team (Late st Contact Info) Description 06/20/2024 10:00 AM EST Office Visit Hematology/Oncology at [address] [phone] H[place]ATOLOGY [place] [address] 06/20/2024 10:30 AM EST Infusion Hematology Oncology at [address] [phone] 07/04/2024 11:00 AM EST Office Visit Hematology/Oncology at [address] [phone] [address] H[place]ATOLOGY [place] [address] 07/04/2024 11:30 AM EST Infusion Hematology Oncology at [address] [phone] documented as of this encounter Visit Diagnoses Not on filedocumented in this encounter Care Teams Cytogenetics Laboratory Manager Relationship Specialty Start Date End Date Kadi Lane PA [facility] [place] [address] PCP - General Family Medicine 07/28/16 documented as of this encounter
--- OUTSIDE RECORDS SUMMARY | 2024-06-20 01:28 | XMS_ITS | Encounter Summary ---
[place] [address] Care Team Providers Care General Labor Forklift Operator Name Role Phone Kadi Lane Primary Care Provider [phone] Encounter Details Date Type Department Care Team (Latest Contact Info) Description 07/07/2022 10:50 AM EST Laboratory Appointment Lab [address] [place] [address] Chest pain, unspecified type; History of hyperlipidemia Social History Tobacco Use Types Packs/Day Years [...] 10:00 AM EST Office Visit Hematology/Oncology at [address] [phone] Lia Barber APRN [address] [place] [address] DR HEMATOLOGY AND ONCOLOGY [place], [place] [phone] 06/20/2024 10:30 AM EST Infusion Hematology Oncology at [address] [phone] 07/04/2024 11:00 AM EST Office Visit Hematology/Oncology at [address] [phone] Lia Barber APRN [address] [place] [address] DR HEMATOLOGY AND ONCOLOGY [place], [place] [phone] 07/04/2024 11:30 AM EST Infusion Hematology Oncology at [address] [phone] documented as of this encounter Procedures Procedure Name Priority Date/Time Associated Diagnosis Comments HEMOGRAM Routine 07/07/2022 10:53 AM EST Chest pain, unspecified type DIFFERENTIAL, AUTOMATED Routine 07/07/2022 10:53 AM EST Chest pain, unspecified type HC CBC,PLT & AUTO DIFF Routine 07/07/2022 10:53 AM EST Chest pain, unspecified type HC VENIPUNCTURE Routine 07/07/2022 10:53 AM EST Chest pain, unspecified type History of hyperlipidemia LIPID PANEL (REFLEX DIRECT LDL) Routine 07/07/2022 10:53 AM EST Chest pain, unspecified type BASIC METABOLIC PANEL Routine 07/07/2022 10:53 AM EST Chest pain, unspecified type documented in this encounter Results * Differential, Automated (07/07/2022 10:53 AM EST) Neutrophil % 68.8 % [facility] Neutrophil Absolute 5.06 1.70 - 6.10 x10(3)/mcL [facility] Lymph % 16.0 % [facility] Lymphocytes Abs 1.2 0.9 - 3.2 x10(3)/mcL [facility] Monocyte % 10.7 % [facility] Monocyte Abs 0.8 0.3 - 0.9 x10(3)/[facility] Eos % 3.4 % [facility] Eosinophils Abs 0.2 0.0 - 0.4 x10(3)/[facility] Basophil % 0.7 % [facility] Baso Absolute 0.0 0.0 - 0.1 x10(3)/[facility] Immature Gran % 0.40 % [facility] Comment: Immature granulocytes(IG's)percentage and absolute count will include metamyelocytes, myelocytes, and promyelocytes. Blood smears from CBCs yielding IG's will be scanned manually for concordance. If this scan disagrees with the automated IG or if promyelocytes are noted, a manual differential will be performed. Immature Gran Absolute 0.03 0.00 - 0.04 x10(3)/[facility] Blood 07/07/2022 10:5 3 AM EST 07/07/2022 11:05 AM EST Narrative Resulting Agency Comment Spec In Lab Rodriguez Nichole MD HEMATOLOGY ORDERABLE S Performing Organization Address City/State/[facility] Co de Phone Number [facility] [place] [address] * (ABNORMAL) Hemogram (07/07/2022 10:53 AM EST) White Blood Cell 7.4 4.0 - 9.5 x10(3)/mc L [facility] Red Blood Cell 4.14(L) 4.58 - 5.54 x10(6)/mc L [facility] Hemoglobin 13.2(L) 13.7 - 16.5 g/dL [facility] Hematocrit 39.5(L) 40.5 - 48.5 % [facility] Mean Cell Volume 95.4(H) 82.9 - 93.1 fL [facility] Mean Cell Hemoglobin 31.9 27.5 - 32.1 pg [facility] Mean Cell Hemoglobin Concentration 33.4 32.0 - 35.7 g/dL [facility] Platelet 288 145 - 357 x10(3)/mc L [facility] RDW Standard Deviation 43.8 36.0 - 45.0 fL [facility] RDW coefficient of variation 12.6 11.4 - 13.8 % [facility] Mean Platelet Volume 9.0 7.6 - 12.9 fL [facility] NRBC% auto 0.0 % [facility] NRBC Absolute 0.000 0.000 - 0.000 x10(3)/mc L [facility] Blood 07/07/2022 10:5 3 AM EST 07/07/2022 11:05 AM EST Narrative Resulting Agency Comment Spec In Lab Rodriguez Nichole MD HEMATOLOGY ORDERABLE S [facility] [place] [address] * Basic Metabolic Panel (non-fasting) (07/07/2022 10:53 AM EST) Glucose 93 65 - 199 mg/dL [facility] Comment:Diabetes: >=200 mg/d L plus symptoms Blood Urea Nitrogen 18 10 - 20 mg/dL [facility] Creatinine 0.80 0.80 - 1.50 mg/dL [facility] Sodium 141 135 - 145 mmol/L [facility] Potassium 4.7 3.5 - 5.0 mmol/L [facility] Comment: Please note: ??Patients with WBC >100,000 may have falsely elevated Potassium levels. ??For accurate Potassium quantification in these patients send serum separator tube (gold top) for subsequent determinations. ??Contact the Clinical Chemistry Laboratory if there are any questions. Chloride 103 98 - 107 mmol/L [facility] Carbon Dioxide 27 22 - 31 mmol/L [facility] Anion Gap 11 5 - 15 mmol/L [facility] Calcium 9.4 8.5 - 10.5 mg/dL [facility] Est Glomerular Filtration Rate 91 >=60 mL/min/1. 73 m?? [facility] Comment: This patient's estimated GFR was [...] and symptoms in addition to eGFR. Blood 07/07/2022 10:5 3 AM EST 07/07/2022 11:05 AM EST Narrative Resulting Agency Comment Spec In Lab Isaac Ledbetter MD CHEMISTRY ORDERABLES [facility] [place] [address] * Lipid Panel (Reflex Direct LDL) (07/07/2022 10:53 AM EST) Cholesterol, Total 160 mg/dL [facility] Comment: Lower Risk: <200 mg/dL Average Risk: 200-239 mg/dL Higher Risk: >be=814 mg/dL Triglyceride 182 mg/dL [facility] Comment: Average Risk/Lower Risk: <150 mg/dL Borderline High Risk: 150-199 mg/dL High Risk: 200-499 mg/dL Very High Risk: >mg=210 mg/dL HDL Cholesterol 34 mg/dL [facility] Comment: Males: ?? Higher Risk: <40 mg/dL Females: ?? Higher Risk: <50 mg/dL LDL Cholesterol 90 mg/dL [facility] Comment: Lowest Risk: <100 mg/dL Lower Risk: 100-129 mg/dL Borderline High Risk: 130-159 mg/dL High Risk: 160-189 mg/dL Very High Risk: >ep=094 mg/dL Cholesterol/HDL Ratio 4.7 ratio [facility] Lipid Interpretation See Note [facility] Comment: Lipid management should be guided by a patient? s ASCVD risk, goals and preferences. ACC/AHA Guidelines recommend high intensity statin if clinical ASCVD or LDL greater than or equal to 190 mg/dL. http://Jobyourlifeurl.com/OUT-GTX-Hrfmwhxiz Adults aged 40-75 with LDL 70-189 mg/dL should have their 10 year ASCVD risk estimated with the ACC/AHA ASCVD risk rolfer http://tools.acc.org/AEUXA-Hgxi-Kdtdsmgqe/ Statin should be discussed if risk greater [...] In Lab Isaac Ledbetter MD CHEMISTRY ORDERABLES [facility] [place] [address] * Hemoglobin A1c (07/07/2022 10:53 AM EST) Hemoglobin A1c 5.5 4.3 - 5.6 % [facility] Comment: Reference Range: 4.3 - 5.6% 5.7 - 6.4% - Increased Risk of Developing Diabetes Mellitus >= 6.5% - Consistent with diagnosis of Diabetes Mellitus In the absence of hyperglycemia (i.e. plasma glucose > 200 mg/dL) or classic symptoms of hyperglycemia a repeat measurement of HbA1c should be performed on a separate sample to confirm the diagnosis. Diagnosis and Classification of Diabetes Mellitus, Diabetes Care 2013; 36: Suppl. 1, E21-74 Estimated Average Glucose See note mg/dL [facility] Comment: Estimated Average Glucose not appropriate for patients over 70 years of age. eAG equivalents for HbA1c percentages: HbA1c(%) ?eAG(mg/dL) 6.0 ?126 6.5 ?140 7.0 ?154 7.5 ?169 8.0 ?183 8.5 ?197 9.0 ?212 9.5 ?226 10.0 ? 240 Limitations: The eAG calculation has not been validated on women, individuals below 18 years old and above 70 years old, and individuals with hemoglobinopathies. Additional resources are available on the ADA website. Josh SAN, Xenia J, Edin R, et al. ??Translating the A1C assay into estimated average glucose values. ??Diabetes Care 2008:31(8):5836-2790. Blood 07/07/2022 10:5 3 AM EST 07/07/2022 11:05 AM EST Narrative Resulting Agency Comment Spec In Lab Isaac Ledbetter MD CHEMISTRY ORDERABLES Performing Organization Address City/State/[facility] Co de Phone Number [facility] [place] [address] documented in this encounter Visit Diagnoses Diagnosis Chest pain, unspecified type History of hyperlipidemia Personal history of other endocrine, metabolic, and immunity disorders documented in this encounter Care Teams General Labor Forklift Operator Relationship Specialty Start Date End Date Kadi [place] [address] PCP - General Family Medicine 07/28/16 documented as of this encounter
--- OUTSIDE RECORDS SUMMARY | 2024-06-20 01:28 | XMS_ITS | Encounter Summary ---
[place] [address] Care Team Providers Care Carbon Cleaner Name Role Phone Kadi Lane Primary Care Provider [phone] Encounter Details Date Type Department Care Team (Late st Contact Info) Description 07/23/2022 Orders Only [place] [phone] Landen Goodman MD [address] [place] [id number] Right lower lobe lung mass Social History Tobacco Use Types Packs/Day Years Used Date Smoking Tobacco: Former Cigarettes 2 32 1 722 - 8078 Smokeless Tobacco: Former Alcohol Use Standard Drinks/Week [...] AM EST Office Visit Hematology/Oncology at [address] [phone] Lia Barber, [address] HEMATOLOGY AND ONCOLOGY [place], [place] [address] 06/20/2024 10:30 AM EST Infusion Hematology Oncology at [address] [phone] 07/04/2024 11:00 AM EST Office Visit Hematology/Oncology at [address] [phone] HEMATOLOGY AND ONCOLOGY [place], [place] [address] 07/04/2024 11:30 AM EST Infusion Hematology Oncology at [address] [phone] documented as of this encounter Visit Diagnoses Diagnosis Right lower lobe lung mass Swelling, mass, or lump in chest documented in this encounter Care Teams Carbon Cleaner Relationship Specialty Start Date End Date Kadi Lane PA [address] [place] [address] PCP - General Family Medicine 07/28/16 documented as of this encounter
--- OUTSIDE RECORDS SUMMARY | 2024-06-20 01:28 | XMS_ITS | Encounter Summary ---
[place] [address] Care Team Providers Care Podiatric Aide Name Role Phone Kadi Lane Primary Care Provider [phone] Encounter Details Date Type Department Care Team (Late st Contact Info) Description 07/07/2022 Telephone Cardiology at [address] [phone] Graciela Allen, SOREN Social History Tobacco Use Types Packs/Day Years [...] encounter Miscellaneous Notes * Telephone Encounter - Rodriguez Nichole MD - 07/09/2022 2:19 PM EST Cardiology Telephone Note I called the patient's daughter Denita and discussed the management plan for her father. I discussed the surgical plan with thoracic surgeon Dr. Goodman. The plan will be to consult interventional radiology to obtain a biopsy of the RLL nodule. If the pathology results are negative for malignancy,then patient may need to go to OR under general anesthesia for intra-op biopsy. If the pathology results are positive for malignancy, then it may be amenable to treatment with medical/chemo/immuno therapy. For now, we will hold off on cardiac catherization until initial IR-guided biopsy and path results return. Rodriguez Nichole MD Animal Attendant * Telephone Encounter - Graciela Allen RN - 07/07/2022 3:59 PM EST Voice message from patient's daughter Denita,states she is requesting a return call from Dr Nichole as she and her parents have questions regarding the visit today. Daughter can be reached at [phone]. Forward to Dr Nichole. documented in this encounter Plan of Treatment Upcoming Encounters Date Type Department Care Team (Late st Contact Info) Description 06/20/2024 10:00 AM EST Office Visit Hematology/Oncology at [address] [phone] [address] HEMATOLOGY AND ONCOLOGY [place], [place] [phone] 06/20/2024 10:30 AM EST Infusion Hematology Oncology at [address] [phone] 07/04/2024 11:00 AM EST Office Visit Hematology/Oncology at [address] [phone] HEMATOLOGY AND ONCOLOGY [place], [place] [phone] 07/04/2024 11:30 AM EST Infusion Hematology Oncology at [address] [phone] documented as of this encounter Visit Diagnoses Not on filedocumented in this encounter Care Teams Podiatric Aide Relationship Specialty Start Date End Date Kadi Lane [place] [address] PCP - General Family Medicine 07/28/16 documented as of this encounter
--- OUTSIDE RECORDS SUMMARY | 2024-06-20 01:28 | XMS_ITS | Encounter Summary ---
[place] [address] Care Team Providers Care Land Agent Name Role Phone Kadi Lane Primary Care Provider [phone] Encounter Details Date Type Department Care Team (Late st Contact Info) Description 07/07/2022 Orders [place] [phone] Landen Goodman MD [address] [place] [address] Social History Tobacco Use Types Packs/Day Years Used Date Smoking Tobacco: Former Cigarettes 2 32 1 176 - 4466 Smokeless Tobacco: Former Alcohol Use Standard Drinks/Week [...] AM EST Office Visit Hematology/Oncology at [address] [phone] [address] HEMATOLOGY AND ONCOLOGY [place], [place] [phone] 06/20/2024 10:30 AM EST Infusion Hematology Oncology at [address] [phone] 07/04/2024 11:00 AM EST Office Visit Hematology/Oncology at [address] [phone] [address] HEMATOLOGY AND ONCOLOGY [place], [place] [phone] 07/04/2024 11:30 AM EST Infusion Hematology Oncology at [address] [phone] documented as of this encounter Visit Diagnoses Not on filedocumented in this encounter Care Teams Land Agent Relationship Specialty Start Date End Date Kadi Lane PA [address] [place] [address] PCP - General Family Medicine 07/28/16 documented as of this encounter
--- OUTSIDE RECORDS SUMMARY | 2024-06-20 01:28 | XMS_ITS | Encounter Summary ---
[place] [address] Care Team Providers Care Tree Girdler Name Role Phone Kadi Lane Primary Care Provider [phone] Reason for Visit * Reason Comments Advice Only * Consultation (Routine) - Closed Specialty Diagnoses / Procedures Referred By Contmarlys t Referred To Contact Hematology and Oncology Diagnoses Non-small cell cancer of right lung Landen Goodman MD [address] [place] [id number] [facility] [address] [place] [address] Referral ID Status Reason Start Date Expiration Date V isits Requested Visits Authorized [id number] Closed Consult, Test & Treat 07/23/2022 07/23/2023 1 1 Encounter Details Date Type Department Care Team (Late st Contact Info) Description 08/14/2022 10:30 AM EDT Office Visit H[place]ology [place] [address] Zach Vincent MD [facility] [address] [place] [address] Karla Scott APRN [facility] HEMATOLOGY [place] [address] Non-small cell cancer of right lung Social [...] in a intermediate (including now)? No 08/14/2022 Sex and Gender Information Value Date Recorded Sex Assigned at Male 10/05/2023 6:23 PM EDT Gender Identity Male 10/05/2023 6:23 PM EDT Sexual Orientation Straight 10/05/2023 6: 23 PM EDT documented as of this encounter Last Filed Vital Signs Vital Sign Reading Time Taken Comments Blood Pressure 137/60 08/14/2022 10:53 AM EDT Pulse 54 08/14/2022 10:53 AM EDT Temperature 36.3 ??C (97.3 ??F) 08/14/2022 1 0:53 AM EDT Respiratory Rate 17 08/14/2022 10:5 3 AM EDT Oxygen Saturation 98% 08/14/2022 10: 53 AM EDT Inhaled Oxygen Concentration - - Weight 64.3 kg (141 lb 12.1 oz) 023 10:53 AM EDT with shoes Height 165.4 cm (5' 5.12) 08/14/2022 1 0:53 AM EDT with shoes Body Mass Index 23.5 08/14/2022 10:53 AM EDT documented in this encounter Progress Notes * Zach Vincent MD - 08/14/2022 10:30 AM EDT Images from the original note were not included. Thoracic Oncology [facility] [place] [address] [phone] Marco Antonio Xiong is being seen for the evaluation of lung cancer. Assessment & Plan: Marco Antonio Xiong is a 76 y.o. male patient with a past medical [...] ischemia and diminished ejection fraction of 39%. He does not have significant symptoms attributable to his cancer and does not seem to have any significant cardiac issues but is scheduled for a cardiac catheterization in 2 weeks. 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 His performance status is excellent.. I discussed the case with his thoracic surgeon Dr. Goodman on the day of the visit. We discussed the potential options noting that much will depend on the results of the cardiac catheterization. In the event that he has significant cardiac disease that requires intervention with drug-eluting stents and the need for antiplatelet therapy and the favored approach would be potentiallystereotactic radiation. In the event that he does not require antiplatelet therapy and is felt to be a surgical candidate then would consider surgical resection. We discussed the need to consider chemotherapy and immunotherapy either preoperatively or postoperatively given that it is on the larger size and the T2a. At the same time do not necessarily feel strongly that 1 is preferable in this context. They were a bit understandably overwhelmed and so we did not finalize a treatment plan given this uncertainty but will do so once we have the results of the catheterization and the decision regarding surgery. He voiced that his preference would be to pursue surgical resection One option to consider would be induction therapy with carboplatin/paclitaxel/nivolumab based on the Checkmate 816 trial (Herlinda et al NEJ 2021). In this phase 3 trial patients with stage I B-IIIA resectable non- small cell lung cancer randomly assigned to receive [place] based chemotherapy alone for [place] based chemotherapy plus the addition of nivolumab. The percentage of patients with a complete response to neoadjuvant therapy was 24% in the experimental arm versus 2.2 in the control arm.The median event free survival was 31.6 months and the experimental arm compared to 20.8 months in the forearm. Results for event free survival and pathological complete response across most subgroups favored nivolumab plus chemotherapy or chemotherapy alone. Plan: - cardiac catheterization - Finalize decision making on surgical resection and then will align need for systemic therapy. This can potentially be done at [facility] which is closer for him. Zach Vincent MD, MS 08/15/2022 Thoracic Oncology [facility] CC: ADRIANO Sheriff MD HPI/Interval History/Subjective: Marco Antonio Xiong is a 76 y.o. 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 Evaluation at that time didnot identify malignancy and he was treated with abx and close obersvation but subsequent evaluationshowed increasing size of the mass and biopsy ultimately identified squamous cell carcinoma of the lung. A subsequent preoperative stress test showed apical ischemia and diminished ejection fraction of 39%. He is accompanied by his to today's visit and son. His daughter who is a nurse in [place] joins us by conference call. He reports that in general he is doing quite well. The symptoms he initially had last summer and fall have subsided. His weight loss has improved. He does have occasional left-sided discomfort in thecenter of his chest particularly at night when he is resting. Does not have a history of GERD. He does not have any exertional symptoms. He can go up a flight of stairs without chest pain or breathing difficulties. He does not have any cough. No fevers or infections. No new pains. He does not have any progressive headaches but does have occasional slight headaches. Social History/Support Network: Home situation: . Lives 2 hours away. 3 chuildren. 5 grandsons and 2 great grandauhters Employment: Retired. [employer]. Now likes to be outdoorrs fishing. [place]. Tobacco use: Quit in 1986. 2 ppd at the time. [id number] history Alcohol use: uit then as well [...] Unstable Housing in the Last Year: No service: No Family History: Mother- Dscd Malignant hyperthremia Father- Dscd Cause unknown No known history of lung cancer Family History Problem Relation Age of Onset ??? Malignant Hyperthermia Mother Oncology Overview: Cancer Staging [...] therapeutically aspirated. The bronchoscope was removed. The [employer] robotic systemwas used for pre-procedure planning, including 3D rendering with image post-processing on an independent workstation. The [employer] robotic system was then used for intra- [...] was terminated and the bronchoscope was withdrawn. ?? 02.25.22 CT Neck 06.19.22 CT Chest FINDINGS: [...] The sample consists almost entirely of abundant, ??amorphous/acellular material. No malignant cells are seen. Recommend clinical ??correlation. 07/21/22 Lung biopsy Tissue: Lung, right lower lobe mass, biopsy Diagnosis: Squamous cell carcinoma Tumor Proportion Score (TPS): % Expression: 5% Surgical Pathology DIAGNOSIS Lung, right lower lobe mass, biopsy: Squamous cell carcinoma Molecular Data: NA Treatment Course: 02/25/2022 10:56 PM 02/26/2022 5:52 AM 02/26/2022 5:28 PM 02/27/2022 5:47 AM ONCBCN ONCOLOGY (AMB) dexAMETHasone (PF) 10 mg/mL (Decadron) IV 8 mg 8 mg 8 mg 8 mg Patient Active Problem List Diagnosis Date Noted ??? Non-small cell lung cancer 08/12/2022 ??? Pleural effusion 07/21/2022 ??? 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 Pertinent details are noted above. Pertinent positives and negative from the Review of Systems are as summarized above in the HPI. Physical Exam: Wt Readings from Last 3 Encounters: 08/14/22 64.3 kg (141 lb 12.1 oz) 08/12/22 65.4 kg (144 lb 3.2 oz) 07/21/22 62.4 kg (137 lb 9.1 oz) Temp Readings from Last 3 Encounters: 08/14/22 36.3 ??C (97.3 ??F) (Temporal) 08/12/22 36.5 ??C (97.7 ??F) (Temporal) 07/23/22 36.9 ??C (98.4 ??F) (Oral) BP Readings from Last 3 Encounters: 08/14/22 137/60 08/12/22 165/65 07/23/22 159/65 Pulse Readings from Last 3 Encounters: 08/14/22 54 08/12/22 56 07/22/22 50 Body surface area is 1.72 meters squared. Wt Readings from Last 3 Encounters: 08/14/22 64.3 kg (141 lb 12.1 oz) 08/12/22 65.4 kg (144 lb 3.2 oz) 07/21/22 62.4 kg (137 lb 9.1 oz) KPS Score ECOG Grade Definition 90-100 [...] BF Pleural, Right 07/21/22 11:55 Color BF Mccormick 07/21/22 11:55 Appearance BF Cloudy 07/21/22 11:55 [...] AM EST Office Visit Hematology/Oncology at [address] [phone] [address] [place] [address] 06/20/2024 10:30 AM EST Infusion Hematology Oncology at [address] [phone] 07/04/2024 11:00 AM EST Office Visit Hematology/Oncology at [address] [phone] Lia Barber [address] [place] [address] 07/04/2024 11:30 AM EST Infusion Hematology Oncology at [address] [phone] documented as of this encounter Visit Diagnoses Diagnosis Non-small cell cancer of right lung documented in this encounter Care Teams Tree Girdler Relationship Specialty Start Date End Date Kadi Lane PA [facility] [place] [address] PCP - General Family Medicine 07/28/16 documented as of this encounter
--- OUTSIDE RECORDS SUMMARY | 2024-06-20 01:28 | XMS_ITS | Encounter Summary ---
Author Organization [facility] [place] [address] Care Team Providers Care Meat Processor Name Role Phone Kadi Lane Primary Care Provider [phone] Encounter Details Date Type Department Care Team (Latest Contact Info) Description 08/14/2022 11:30 AM EDT - 08/14/2022 11:59 PM EDT Hospital Encounter XRay at [address] [place] [address] Landen Goodman MD [address] [place] [id number] Pleural effusion Discharge Disposition: Home Social History Tobacco Use Types Packs/Day Years Used Date Smoking Tobacco: Former Cigarettes 2 32 1 951 - 8710 Smokeless Tobacco: Former Alcohol Use Standard Drinks/Week [...] a group home (including now)? No 08/14/2022 Sex and Gender [...] AM EST Office Visit Hematology/Oncology at [address] [phone] [address] [place] [address] 06/20/2024 10:30 AM EST Infusion Hematology Oncology at [address] [phone] 07/04/2024 11:00 AM EST Office Visit Hematology/Oncology at [address] [phone] [address] [place] [address] 07/04/2024 11:30 AM EST Infusion Hematology Oncology at [address] [phone] documented as of this encounter Procedures Procedure Name Priority Date/Time Associated Diagnosis Comments XR CHEST PA AND LATERAL Routine 08/14/2022 11:52 AM EDT Pleural effusion documented in this encounter Results * XR Chest PA & Lateral (Generic) (08/14/2022 11:52 AM EDT) Anatomical Region Laterality Modality Chest N/A Digital Radiogra phy Impressions 08/14/2022 11:58 AM EDT Right-sided hydropneumothorax with an increase in the volume of the fluid component. Thank you for letting us participate in the care of this patient. ??If you are a health care provider and have any questions regarding this report, please contact the number below. ??For patients who have questions please contact the health customer care coordinator that requested your imaging first. ? Electronically signed by: Kwaku Padron MD, [facility] ([phone]), at 08/14/2022 11:58 AM Narrative 08/14/2022 11:58 AM EDT EXAMINATION: XR CHEST PA AND LATERAL (GENERIC) CLINICAL HISTORY: s/p R pigtail placement for pleural effusions effusions, interval changes, pnumothorax TECHNIQUE: PA and lateral views of the chest COMPARISON: July 23, 2022 FINDINGS: Again seen is the right-sided hydropneumothorax. The amount of fluid present has increased since the prior examination. The previously seen right-sided subcutaneous emphysema is no longer present. There is a small left-sided pleural effusion. There has been no other change. A mass at the base of the right hemithorax is partially visualized. Bilateral calcified pleural plaques are noted. Procedure Note Kwaku Padron MD - 08/14/2022 EXAMINATION: XR CHEST PA AND LATERAL (GENERIC) CLINICAL HISTORY: s/p R pigtail placement for pleural effusions effusions, interval changes, pnumothorax TECHNIQUE: PA and lateral views of the chest COMPARISON: July 23, 2022 FINDINGS: Again seen is the right-sided hydropneumothorax. The amount of fluidpresent has increased since the prior examination. The previously seen right-sided subcutaneous emphysema is no longer present. There is a small left-sidedpleural effusion. There has been no other change. A mass at the base of the right hemithoraxis partially visualized. Bilateral calcified pleural plaques are noted. IMPRESSION Right-sided hydropneumothorax with an increase in the volume of thefluid component. Thank you for letting us participate in the care of this patient. If youare a health care provider and have any questions regarding this report,please contact the number below. For patients who have questions please contactthe health customer care coordinator that requested your imaging first. Electronically signed by: Kwaku Padron MD, [facility]([phone]), at 08/14/2022 11:58 AM Landen Goodman MD IMG DX ORDERABLES documented in this encounter Visit Diagnoses Diagnosis Pleural effusion Unspecified pleural effusion documented in this encounter Care Teams Meat Processor Relationship Specialty Start Date End Date Kadi Lane PA [address] [place] [address] PCP - General Family Medicine 07/28/16 documented as of this encounter
--- OUTSIDE RECORDS SUMMARY | 2024-06-20 01:28 | XMS_ITS | Encounter Summary ---
[place] [address] Care Team Providers Care Regeneration Operator Name Role Phone Kadi Lane Primary Care Provider [phone] Reason for Visit * Reason Comments Follow-up * Auth/Cert (Routine) Specialty Diagnoses / Procedures Referred By Contac t Referred To Contact Diagnoses Pleural effusion Post-Op Pain Mangement Landen Goodman MD [address] [place] [address] [facility] Referral ID Status Reason Start Date Expiration Date Visits Re quested Visits Authorized [id number] 1 1 Encounter Details Date Type Department Care Team (Late st Contact Info) Description 07/21/2022 7:45 AM EST Office [place] [address] Landen Goodman MD [address] [place] [address] Right lower lobe lung mass; Recurrent pleural effusion on right Social History Tobacco Use Types Packs/Day [...] Sign Reading Time Taken Comments Blood Pressure 166/63 07/21/2022 8:25 AM EST Pulse 69 07/21/2022 8:25 AM EST Temperature 36.7 ??C (98.1 ??F) 07/21/2022 8:25 AM ES T Respiratory Rate 19 07/21/2022 8:25 AM EST Oxygen Saturation 97% 07/21/2022 8:25 AM EST Inhaled Oxygen Concentration - - Weight 62.4 kg (137 lb 9.1 oz) 07/21/2022 8:25 A M EST Height 166.4 cm (5' 5.51) 07/21/2022 8:25 AM ES T Body Mass Index 22.54 07/21/2022 8:25 AM EST documented in this encounter Progress Notes * Rowan Victoria PA - 07/21/2022 7:45 AM EST Thoracic Surgery Attending Outpatient Follow Up Note MD Rowan Noriega PA-C [place] [address] FAX: Reason for Visit: Follow up right lower lobe lung mass, right pleural effusion HPI: Marco Antonio Xiong is a 76 y.o. male with PMHx significant for COPD and GERD with an FDG avid 4.3cm pleural based right lower lobe lung mass and chronic right pleural effusion that was found to benegative for malignancy after navigational bronchoscopy/EBUS and thoracentesis on 02/25/22 now having completed an extended course of azithromycin. Despite completing a prolonged antibiotic course hehas a persistent right lower lobe mass for which CT guided needle biopsy and right pigtail placement with IR was recommended. He underwent a stress test on 07/01/22 which showed a large area of apicalischemia and an ejection fraction of 39%. Cardiology is recommending cardiac catheterization but given he would require antiplatelet therapy for at least six months, lung biopsy needs to be obtained to rule out malignancy and the need for thoracic surgical intervention. ?? Today the patient reports feeling well and denies fever, cough or hemoptysis, chest pain or discomfort, SOB. Medications: Current Facility-Administered Medications on File Prior to Visit Medication Dose Route Frequency Provider Last Rate Last Admin ??? [COMPLETED] lidocaine (Xylocaine) 1% (10 mg/mL) injection 10 mg 10 mg Subcutaneous Once Ashley Prakash PA 10 mg at 07/21/22 1148 ??? [DISCONTINUED] sodium chloride 0.9 % (flush) (BD PosiFlush Normal Saline 0.9) flush 5 mL 5 mL Intravenous BID Ashley Prakash PA ??? [DISCONTINUED] sodium chloride 0.9 % (flush) (BD PosiFlush Normal Saline 0.9) flush 5-20 mL 5-20 mL Intravenous Q1 Min PRN Ashley Prakash PA ??? [DISCONTINUED] lidocaine (Xylocaine) 1% (10 mg/mL) injection 3 mg 0.3 mL Subcutaneous Once PRN Ashley Prakash PA ??? [DISCONTINUED] sodium chloride 0.9 % (flush) (BD PosiFlush Normal Saline 0.9) flush 10 mL 10 mLIntravenous Daily PRN Ashley Prakash PA ??? [DISCONTINUED] fentaNYL (pf) (50 mcg/mL) multi-dose injection 25-50 mcg 25- 50 mcg Intravenous Q3 Min PRN Ashley Prakash PA 25 mcg at 07/21/22 1154 ??? [DISCONTINUED] flumazeniL (Romazicon) (0.1 mg/mL) injection 0.2 mg 0.2 mg Intravenous Q2 Min PRN Ashley Prakash PA ??? [DISCONTINUED] naloxone (NARCAN) injection 1 mg/mL 0.1 mg 0.1 mg Intravenous Q2 Min PRN Ashley Prakash PA ??? [DISCONTINUED] midazolam (pf) (Versed) (1 mg/mL) multi-dose injection 0.5-1 mg 0.5-1 mg Intravenous Q3 Min PRN Ashley Prakash PA 0.5 mg at 07/21/22 1144 Current Outpatient Medications on File Prior to Visit Medication Sig Dispense Refill ??? magnesium oxide (Mag-Ox) 400 mg (241.3 mg magnesium) Tablet Take 400 mg by mouth daily. ??? metoprolol succinate XL (Toprol-XL) 25 mg Tablet Sustained Release 24 hr Take 0.5 tablets by mouth daily. 90 tablet 3 ??? atorvastatin (Lipitor) 40 mg Tablet Take 1 tablet by mouth daily. 90 tablet 3 ??? nitroGLYcerin (Nitrostat) 0.4 mg Tablet, Sublingual Place 1 tablet under the tongue every 5 minutes as needed for Chest pain. 30 tablet 3 ??? multivitamin (THERAGRAN) Tablet Take 1 tablet by mouth daily. ??? aspirin EC 81 mg Tablet, Delayed Release (E.C.) Take 81 mg by mouth daily. ??? omeprazole (PriLOSEC) 20 mg Capsule, Delayed Release(E.C.) Take 20 mg by mouth every morning. Physical Exam: BP 166/63 (Patient Position: Sitting) Pulse 69 Temp 36.7 ??C (98.1 ??F) (Temporal) Resp 19 Ht 166.4 cm (5' 5.51) Wt 62.4 kg (137 lb 9.1 oz) SpO2 97% BMI 22.54 kg/m?? General Appearance: Alert, pleasant, no distress Lungs: Clear to auscultation bilaterally, respirations unlabored, no wheezes, crackles or ronchi. Heart: Regular rate and rhythm, S1 and S2 normal, no murmur, rub, or gallop Abdomen: Soft, non-tender, non-distended, no masses, no organomegaly Extremities: Extremities normal, atraumatic, no cyanosis or edema Imaging: I have independently visualized the following studies: CXR (07/21/22): IMPRESSION 1. Redemonstration of right lower lobe pleural-based mass. 2. Small to moderate right-sided effusion. Trace left effusion. Assessment: Marco Antonio Xiong is a 76 y.o. male with an FDG avid 4.3cm pleural based right lower lobe lung mass and chronic right pleural effusion presenting today prior to planned CT guided lung biopsy to rule out malignancy and right pigtail placement with interventional radiology. Plan: 1. Proceed with IR lung biopsy and pigtail placement with plan to admit to thoracic surgery for chest tube observation. 2. Obtain pleural fluid studies and CXR post-procedure ADRIANO Carvalho 07/21/22 * Landen Goodman MD - 07/21/2022 7:45 AM EST Thoracic Surgery Attending Outpatient Follow Up Note MD Rowan Noriega PA-C [facility] [address] [place] [address] FAX: Reason for Visit: Follow up right lower lobe lung mass, right pleural effusion HPI: Marco Antonio Xiong is a 76 y.o. male with PMHx significant for COPD and GERD with an FDG avid 4.3cm pleural based right lower lobe lung mass and chronic right pleural effusion that was found to benegative for malignancy after navigational bronchoscopy/EBUS and thoracentesis on 02/25/22 now having completed an extended course of azithromycin. Despite completing a prolonged antibiotic course hehas a persistent right lower lobe mass for which CT guided needle biopsy and right pigtail placement with IR was recommended. He underwent a stress test on 07/01/22 which showed a large area of apicalischemia and an ejection fraction of 39%. Cardiology is recommending cardiac catheterization but given he would require antiplatelet therapy for at least six months, lung biopsy needs to be obtained to rule out malignancy and the need for thoracic surgical intervention. ?? Today the patient reports feeling well and denies fever, cough or hemoptysis, chest pain or discomfort, SOB. Medications: Current Facility-Administered Medications on File Prior to Visit Medication Dose Route Frequency Provider Last Rate Last Admin ??? [COMPLETED] lidocaine (Xylocaine) 1% (10 mg/mL) injection 10 mg 10 mg Subcutaneous Once Ashley Prakash PA 10 mg at 07/21/22 1148 ??? [DISCONTINUED] sodium chloride 0.9 % (flush) (BD PosiFlush Normal Saline 0.9) flush 5 mL 5 mL Intravenous BID Ashley Prakash PA ??? [DISCONTINUED] sodium chloride 0.9 % (flush) (BD PosiFlush Normal Saline 0.9) flush 5-20 mL 5-20 mL Intravenous Q1 Min PRN Ashley Prakash PA ??? [DISCONTINUED] lidocaine (Xylocaine) 1% (10 mg/mL) injection 3 mg 0.3 mL Subcutaneous Once PRN Ashley Prakash PA ??? [DISCONTINUED] sodium chloride 0.9 % (flush) (BD PosiFlush Normal Saline 0.9) flush 10 mL 10 mLIntravenous Daily PRN Ashley Prakash PA ??? [DISCONTINUED] fentaNYL (pf) (50 mcg/mL) multi-dose injection 25-50 mcg 25- 50 mcg Intravenous Q3 Min PRN Ashley Prakash PA 25 mcg at 07/21/22 1154 ??? [DISCONTINUED] flumazeniL (Romazicon) (0.1 mg/mL) injection 0.2 mg 0.2 mg Intravenous Q2 Min PRN Ashley Prakash PA ??? [DISCONTINUED] naloxone (NARCAN) injection 1 mg/mL 0.1 mg 0.1 mg Intravenous Q2 Min PRN Ashley Prakash PA ??? [DISCONTINUED] midazolam (pf) (Versed) (1 mg/mL) multi-dose injection 0.5-1 mg 0.5-1 mg Intravenous Q3 Min PRN Ashley Prakash PA 0.5 mg at 07/21/22 1144 Current Outpatient Medications on File Prior to Visit Medication Sig Dispense Refill ??? magnesium oxide (Mag-Ox) 400 mg (241.3 mg magnesium) Tablet Take 400 mg by mouth daily. ??? metoprolol succinate XL (Toprol-XL) 25 mg Tablet Sustained Release 24 hr Take 0.5 tablets by mouth daily. 90 tablet 3 ??? atorvastatin (Lipitor) 40 mg Tablet Take 1 tablet by mouth daily. 90 tablet 3 ??? nitroGLYcerin (Nitrostat) 0.4 mg Tablet, Sublingual Place 1 tablet under the tongue every 5 minutes as needed for Chest pain. 30 tablet 3 ??? multivitamin (THERAGRAN) Tablet Take 1 tablet by mouth daily. ??? aspirin EC 81 mg Tablet, Delayed Release (E.C.) Take 81 mg by mouth daily. ??? omeprazole (PriLOSEC) 20 mg Capsule, Delayed Release(E.C.) Take 20 mg by mouth every morning. Physical Exam: BP 166/63 (Patient Position: Sitting) Pulse 69 Temp 36.7 ??C (98.1 ??F) (Temporal) Resp 19 Ht 166.4 cm (5' 5.51) Wt 62.4 kg (137 lb 9.1 oz) SpO2 97% BMI 22.54 kg/m?? General Appearance: Alert, pleasant, no distress Lungs: Clear to auscultation bilaterally, respirations unlabored, no wheezes, crackles or ronchi. Heart: Regular rate and rhythm, S1 and S2 normal, no murmur, rub, or gallop Abdomen: Soft, non-tender, non-distended, no masses, no organomegaly Extremities: Extremities normal, atraumatic, no cyanosis or edema Imaging: I have independently visualized the following studies: CXR (07/21/22): IMPRESSION 1. Redemonstration of right lower lobe pleural-based mass. 2. Small to moderate right-sided effusion. Trace left effusion. Assessment: Marco Antonio Xiong is a 76 y.o. male with an FDG avid 4.3cm pleural based right lower lobe lung mass and chronic right pleural effusion presenting today prior to planned CT guided lung biopsy to rule out malignancy and right pigtail placement with interventional radiology. Plan: 1. Proceed with IR lung biopsy and pigtail placement with plan to admit to thoracic surgery for chest tube observation. 2. Obtain pleural fluid studies and CXR post-procedure ADRIANO Carvalho 07/21/22 Attending Attestation: I have seen the patient in person and reviewed the resident's above history and I agree with the details as written. The assessment and plan were formulated in discussion with me and I agree with them as documented. Landen Goomdan MD Thoracic Surgery documented in this encounter Plan of Treatment Upcoming Encounters Date Type Department Care Team (Late st Contact Info) Description 06/20/2024 10:00 AM EST Office Visit Hematology/Oncology at [address] [phone] [address] [place] [address] 06/20/2024 10:30 AM EST Infusion Hematology Oncology at [address] [phone] 07/04/2024 11:00 AM EST Office Visit Hematology/Oncology at [address] [phone] HEMATOLOGY AND ONCOLOGY [place], [place] [address] 07/04/2024 11:30 AM EST Infusion Hematology Oncology at [address] [phone] documented as of this encounter Visit Diagnoses Diagnosis Right lower lobe lung mass Swelling, mass, or lump in chest Recurrent pleural effusion on right Unspecified pleural effusion documented in this encounter Care Teams Regeneration Operator Relationship Specialty Start Date End Date Kadi Lane [place] [address] PCP - General Family Medicine 07/28/16 documented as of this encounter
--- OUTSIDE RECORDS SUMMARY | 2024-06-20 01:28 | XMS_ITS | Encounter Summary ---
[place] [address] Care Team Providers Care Zigzag Stitcher Name Role Phone Kadi Lane Primary Care Provider [phone] Reason for Referral * Diagnostic Test (STAT) - Closed Specialty Diagnoses / Procedures Referred By Contac t Referred To Contact Radiology Diagnoses Right lower lobe lung mass Recurrent pleural effusion on right Procedures CT Guided Drain Chest Tube/Pleural Drain IR Chest Tube Placement Right Landen Goodman MD [address] [place], [place] [id number] [place] [address] Referral ID Status Reason Start Date Expiration Date V isits Requested Visits Authorized [id number] Closed Specialty Service Requested 07/09/2022 01/07/2024 1 1 * Diagnostic Test (STAT) - Closed Specialty Diagnoses / Procedures Referred By Contac t Referred To Contact Radiology Diagnoses Right lower lobe lung mass Recurrent pleural effusion on right Procedures CT Guided Biopsy Lung Landen Goodman MD [address] [place] [address] [facility] [place] [address] Referral ID Status Reason Start Date Expiration Date V isits Requested Visits Authorized [id number] Closed Specialty Service Requested 07/09/2022 01/07/2024 1 1 Encounter Details Date Type Department Care Team (Late st Contact Info) Description 07/09/2022 Orders [place] [address] Laila Valdez, RN Right lower lobe lung mass; Recurrent pleural [...] as of this encounter Miscellaneous Notes * Addendum Note - Laila Valdez RN - 07/09/2022 9:44 AM ESTAddended by: LAILA VALDEZ on: 07/09/2022 03:00 PM Modules accepted: Orders documented in this encounter Plan of Treatment Upcoming Encounters Date Type Department Care Team (Late st Contact Info) Description 06/20/2024 10:00 AM EST Office Visit Hematology/Oncology at [address] [phone] Lia Barber APRN [address] [place] [address] HEMATOLOGY AND ONCOLOGY [place], [place] [phone] 06/20/2024 10:30 AM EST Infusion Hematology Oncology at [address] [phone] 07/04/2024 11:00 AM EST Office Visit Hematology/Oncology at [address] [phone] Lia Barber APRN [address] [place] [address] DR HEMATOLOGY AND ONCOLOGY [place], [place] [phone] 07/04/2024 11:30 AM EST Infusion Hematology Oncology at [address] [phone] documented as of this encounter Results * CT Guided Drain [...] performed the entire procedure. Landen Goodman MD [facility] CT ORDERABLES * CT Guided Biopsy Lung [...] performed the entire procedure. Landen Goodman MD IMG CT ORDERABLES * XR Chest PA & Lateral (Generic) [...] have questions please contact the health caregivers homecare that requested your imaging first. ? Electronically signed by: Kwaku Padron MD, [facility] ([phone]), at 07/21/2022 2:17 PM Narrative 07/21/2022 2:17 [...] who have questions please contactthe health caregivers homecare that requested your imaging first. Electronically signed by: Kwaku Padron MD, [facility]([phone]), at 07/21/2022 2:17 PM Landen Goodman MD IMG DX ORDERABLES documented in this encounter Visit Diagnoses Diagnosis Right lower lobe lung mass Swelling, mass, or lump in chest Recurrent pleural effusion on right Unspecified pleural effusion Right lower lobe lung mass Swelling, mass, or lump in chest Recurrent pleural effusion on right Unspecified pleural effusion Right lower lobe lung mass Swelling, mass, or lump in chest Recurrent pleural effusion on right Unspecified pleural effusion documented in this encounter Care Teams Zigzag Stitcher Relationship Specialty Start Date End Date Kadi Lane PA [address] [place] [id number] PCP - General Family Medicine 07/28/16 documented as of this encounter
--- OUTSIDE RECORDS SUMMARY | 2024-06-20 01:28 | XMS_ITS | Encounter Summary ---
[place] [address] Care Team Providers Care Director Of Instruction Name Role Phone Kadi Lane Primary Care Provider [phone] Encounter Details Date Type Department Care Team (Latest Contact Info) Description 07/07/2022 Multidisciplinary Ca re Committee [place] [phone] Landen Goodman MD [address] [place] [id number] Social History Tobacco Use Types Packs/Day Years Used Date Smoking Tobacco: Former Cigarettes 2 32 2 [phone] Smokeless Tobacco: Former Alcohol Use Standard Drinks/Week Comments Not Currently 0 (1 standard drink = 0.6 oz pur e alcohol) Sex and Gender Information Value Date Recorded Sex Assigned at Male 10/05/2023 6:23 PM EDT Gender Identity Male 10/05/2023 6:23 PM EDT Sexual Orientation Straight 10/05/2023 6: 23 PM EDT documented as of this encounter Progress Notes * Landen Goodman MD - 07/07/2022 11:59 PM EST Thoracic - Tumor Board Note Date Presented: 07/07/2022 Presenting Physician: Rex Diagnosis/Tumor Site: RLL Nodule Is this Metastatic Disease: NA Synopsis of History/HPI: 76 y.o. male with an FDG avid 4.3cm pleural based right lower lobe lung nodule and right pleural effusion that was found to be negative for malignancy after navigational bronchoscopy/EBUS and thoracentesis on 02/25/22 and has now completed an extended course of Azithromycin. Repeat CT scan shows unchanged size of the mass. Patient was scheduled for pleural biopsy and core and cultures, now S/P positive stress test and cardiology consult. Imaging: CT/PET Pathology/Histology: NA Stage: NA Options Discussed: Proceed with procedure VS Delay Recommendations: Patient will need cardiac cath, per cardiology, will refer to rad onc if stents and DOAC are needed. documented in this encounter Plan of Treatment Upcoming Encounters Date Type Department Care Team (Late st Contact Info) Description 06/20/2024 10:00 AM EST Office Visit Hematology/Oncology at [address] [phone] HEMATOLOGY AND ONCOLOGY [place], [place] [phone] 06/20/2024 10:30 AM EST Infusion Hematology Oncology at [address] [phone] 07/04/2024 11:00 AM EST Office Visit Hematology/Oncology at [address] [phone] HEMATOLOGY AND ONCOLOGY [place], [place] [phone] 07/04/2024 11:30 AM EST Infusion Hematology Oncology at [address] [phone] documented as of this encounter Visit Diagnoses Not on filedocumented in this encounter Care Teams Director Of Instruction Relationship Specialty Start Date End Date Kadi Lane PA [facility] [place] [address] PCP - General Family Medicine 07/28/16 documented as of this encounter
--- OUTSIDE RECORDS SUMMARY | 2024-06-20 01:28 | XMS_ITS | Encounter Summary ---
[place] [address] Care Team Providers Care Gasoline Attendant Name Role Phone Kadi Lane Primary Care Provider [phone] Reason for Visit * Auth/Cert (Routine) Specialty Diagnoses / Procedures Referred By Contac t Referred To Contact Diagnoses Pleural effusion Post-Op Pain Mangement Landen Casarez MD [address] [place] [id number] [facility] Referral ID Status Reason Start Date Expiration Date Visits Re quested Visits Authorized [id number] 1 1 Encounter Details Date Type Department Care Team (Latest Contact Info) Description 07/21/2022 2:56 PM EST - 07/23/2022 12:15 PM EST Hospital Encounter Surgical Unit Level 4 [place] [address] Landen Casarez MD [address] [place] [id number] Pleural effusion Discharge Disposition: Home Social History [...] Sign Reading Time Taken Comments Blood Pressure 159/65 07/23/2022 11:15 AM EST Pulse 50 07/22/2022 9:00 AM EST Temperature 36.9 ??C (98.4 ??F) 07/23/2022 11:[address] Respiratory Rate 18 07/23/2022 11:15 AM EST Oxygen Saturation 97% 07/23/2022 11:15 AM EST Inhaled Oxygen Concentration - - Weight - - Height - - Body Mass Index - - documented in this encounter Discharge Summaries * Landen Casarez MD - 07/23/2022 11:48 AM EST Department of Thoracic Surgery - Discharge Summary Patient Name: Marco Antonio Xiong Patient Age: 76 y.o. Birthdate: 1945 Admit date: 07/21/2022 Discharge date: 07/23/2022 Attending Physician: Landen Casarez MD Discharge Diagnoses (Hospital Problems) and Secondary Diagnoses (Chronic Problems): Active Hospital Problems Diagnosis ??? Pleural effusion Resolved Hospital Problems No resolved problems to display. 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 male with PMHx significant for COPD and GERD with an FDG avid 4.3cm pleural based right lower lobe lung mass and chronic right pleural effusion that was found to be negative for malignancy after navigational bronchoscopy/EBUS and thoracentesis on 02/25/22 now having completed an extended course of azithromycin. Despite completing a prolonged antibiotic course he has a persistent right lower lobe mass for which CT guidedneedle biopsy and right pigtail placement with IR was recommended. He underwent a stress test on 07/01/22 which showed a large area of apical ischemia and an ejection fraction of 39%. Cardiology is recommending cardiac catheterization but given he would require antiplatelet therapy for at least six months, lung biopsy needs to be obtained to rule out malignancy and the need for thoracic surgical intervention. ?? Post-procedure, the patient reported feeling well and denied fever, cough or hemoptysis, chest painor discomfort, SOB. Hospital Course: Marco Antonio Xiong was direct admitted via the Thoracic Surgery Service at [facility] on 07/21/[address] guided lung biopsy and right pigtail catheter placement with interventional radiology. He tolerated the procedure well and was taken to the interventional radiology postprocedure unit for recovery. After a brief period of time, he was transferred tot floor for continued rehabilitation. His hospital course was uncomplicated. His RIGHT pigtail catheter was removed on post procedure day #2. By post procedure day # 2 he had met all criteria for discharge to home. Pain was controlled on oral medications. He had walked 5 minutes. He was tolerating a normal diet, voiding spontaneously, and was passing flatus. 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 This was explained to the family by Dr Casarez, along with the need for a brain MRI, medical and radiation oncology consults. Vital Signs Temp: 36.9 ??C (98.4 ??F) Temp src: Oral Heart Rate from SpO2: 52 bpm Heart Rate: 50 Heart Rate Source: Monitor Resp: 18 BP: 159/65 MAP (NBP): 96 mmHg BP Method: Automatic Patient Position: Lying SpO2: 97 % O2 Device: None (Room air) Admission Wt: Last Wt: Wt Readings from Last 3 Encounters: 07/21/22 62.4 kg (137 lb 9.1 oz) 07/07/22 64.6 kg (142 lb 6.4 oz) 06/19/22 65.4 kg (144 lb 2.9 oz) Pertinent physical exam findings prior to discharge: General: Sitting up in bed. NAD. Pleasant. Neuro: Awake and alert. Speech clear and appropriate. Moves all extremities with equal strength, nofocal deficit. Lungs: CTA bilaterally, no wheezes, crackles, rhonchi. Resp effort good, non- labored on RA. Heart: Bradycardia, RRR, S1S2, no murmurs, rubs, or gallops. Abdomen: Soft, NTND. Ext: Warm, well perfused. No BLE edema. Important Lab Data: Lab Results Component Value Date WBC 7.4 07/07/2022 HGB 13.2 (L) 07/07/2022 HCT 39.5 (L) 07/07/2022 MCV 95.4 (H) 07/07/2022 Lab Results Component Value Date NA 141 07/07/2022 K 4.7 07/07/2022 CL 103 07/07/2022 CO2 27 07/07/2022 Lab Results Component Value Date CREATININE 0.80 07/07/2022 Lab Results Component Value Date BUN 18 07/07/2022 Lab Results Component Value Date PREALBUMIN 11 (L) 02/26/2022 No results for input(s): PT, PTT, INR in the last 168 hours. Studies: Results for orders placed or performed during the hospital encounter of 07/21/22 XR Chest PA & Lateral (Generic) (Exam End: 07/21/2022 10:00 PM) Narrative EXAMINATION: XR CHEST PA AND LATERAL (GENERIC) CLINICAL HISTORY: s/p right pigtail placement Interval change TECHNIQUE: PA and lateral views of the chest, 2 images COMPARISON: Chest radiograph 07/21/2022. Images from CT-guided procedure 07/21/2022 FINDINGS: Right-sided pigtail pleural catheter projects over the right costophrenic angle. Redemonstration of an approximately 3.5 cm rounded mass projecting over the right lower lobe. There is calcifications along the right and left pleura. Unchanged hazy opacities throughout the right inferior hemithorax. Air-fluid level within the right hemithorax consistent with hydropneumothorax with small air and small fluid components. No left-sided pneumothorax. There is a trace left effusion which is unchanged. No pulmonary vascular congestion. Irregular contour of the left clavicle consistent with healed fracture deformity. There is a moderate size hiatal hernia better depicted on prior CT. Impression 1. Right-sided hydropneumothorax with small air and small fluid components with pigtail pleural catheter present. 2. Redemonstration of right lower lobe rounded mass. 3. Unchanged streaky lung base opacities, likely atelectasis. Thank you for letting us participate in the care of this patient. If you are a health care provider and have any questions regarding this report, please contact the number below. For patients who have questions please contact the health farm or ranch animal caretaker that requested your imaging first. (07/23/22): Some interval increase subcutaneous emphysema s/p removal of right pigtail chest tube, but no evidence of pneumothorax. Imaging discussed and reviewed with Dr. Casarez, but final read is pending. Pending Studies and Lab Data: The patient will need the following test completed on: 07/21/2022 1. XR Chest PA & Lateral (Generic) Diagnosis: Authorizing Provider: Chana Mcleod APRN Discharge Conditions/Prognosis: Stable Discharge to: home Discharge Medications: Your Medications Continued medications, unchanged Dose Details aspirin EC 81 mg Tbec Take 81 mg by mouth daily. 81 mg Refills: 0 atorvastatin 40 mg Tab Commonly known as: Lipitor Take 1 tablet by mouth daily. 40 mg Quantity: 90 tablet Refills: 3 magnesium oxide 400 mg (241.3 mg magnesium) Tab Commonly known as: Mag-Ox Take 400 mg by mouth daily. 400 mg Refills: 0 metoprolol succinate XL 25 mg Tablet sr Commonly known as: Toprol-XL Take 0.5 tablets by mouth daily. 12.5 mg Quantity: 90 tablet Refills: 3 multivitamin Tab Commonly known as: THERAGRAN Take 1 tablet by mouth daily. 1 tablet Refills: 0 nitroGLYcerin 0.4 mg Subl Commonly known as: Nitrostat Place 1 tablet under the tongue every 5 minutes as needed for Chest pain. 0.4 mg Quantity: 30 tablet Refills: 3 omeprazole 20 mg Cpdr Commonly known as: PriLOSEC Take 20 mg by mouth every morning. 20 mg Refills: 0 Updated Allergies/ADRs: No Known Allergies Instructions Given to Patient at Discharge: Patient Instructions Call if you have a fever of greater than 101 degrees, shaking chills, pain not controlled by the medications you were prescribed, develop redness or drainage from your incision site(s), or if you have questions. During normal business hours, Wednesday- Wednesday 8:00 a.m.-5:00 p.m., please call to speak to a nurse in the Thoracic Clinic at [phone]. After hours or on weekends or holidays please call: [phone] and ask to speak to the Thoracic Surgeon card tape converter operator. Diet: You should follow a regular diet. Smoking: If you are a smoker, please avoid smoking. If you are a smoker who needs help quitting, please call the thoracic surgery clinic at [phone]. Shower/Bath: You may shower daily starting 2 days after chest tube removal, no soaking in a bath tub or swimming until your follow-up appointment. Incision care: Wash your chest tube site daily with soap and rinse well, pat dry. Assess for any signs of infection such as increased redness, pain, warmth or drainage. If you have worsening swellingof the tissue surrounding your chest tube site, or swelling that tracks into your chest, neck or face, call the thoracic surgery office immediately. If you had a chest tube, you may remove the dressing over the chest tube site in 2 days after the chest tube was removed and leave it open to the air if it is not draining. Otherwise change the dressing twice a day and as needed. The dressing may remain off once there is no drainage. Drainage from the chest tube site: Clear yellow drainage from the chest tube site is normal. However, if this become larger volume, requiring 5 or more dressing changes in 1-2 hours, you should call to discuss this with one of the thoracic nurses. If you notice worsening pain at the chest tube site, redness, swelling, or white/milky/cloudy drainage, please call the office immediately. Follow up appointments: You will see Dr. Casarez in 2 weeks with a chest Xray within one hour of theappointment. A letter will be mailed to you confirming your appointment information. Red Flags: If you have any new or worsening shortness of breath, chest pain, or difficulty breathing, please go to the closest emergency room for further evaluation and chest x ray. No future appointments. General Instructions None Future Appointments and Orders Future Appointments and Orders Future Appointments Provider Department Dept Phone 08/14/2022 12:15 PM [facility] DB XRAY ROOM 2 XRay at [facility] Arrive at: [facility] [phone] Please go to [facility] ([place] Location). 08/14/2022 12:45 PM Landen Casarez MD Thoracic Surgery at [facility] Arrive at: [facility] [phone] Future Orders Complete By Expires XR Chest PA & Lateral (Generic) [[id number] Custom] 08/06/2022 (Approximate) 01/24/2024 Process Instructions: Scheduling Instructions: Questions: Reason for exam and clinical history: s/p R pigtail placement for pleural effusions Clinical information / henderson questions for radiologist: effusions, interval changes, pnumothorax Where will study be performed?: [facility] Radiology Portable exam?: Stat read required?: Date of injury if applicable: Requested Time: Provider Contact Information: Primary Care Provider: ADRIANO Sheriff [phone] Discharge References/Attachments: Discharge References/Attachments None For questions regarding this document or issues relating to this hospitalization on the Thoracic Surgery Service, please contact Dr. Casarez's office at . Signed: ADRIANO Thompson 07/23/2022 CC: PCP: ADRIANO Sheriff Referring: ADRIANO Carvalho [facility] [place] [address] documented in this encounter Discharge Instructions * Patient Instructions* Stacie Garcia PA - 07/23/2022 10:11 AM EST Call if you have a fever of greater than 101 degrees, shaking chills, pain not controlled by the medications you were prescribed, develop redness or drainage from your incision site(s), or if you have questions. During normal business hours, Wednesday- Wednesday 8:00 a.m.-5:00 p.m., please call to speak to a nurse in the Thoracic Clinic at [phone]. After hours or on weekends or holidays please call: [phone] and ask to speak to the Thoracic Surgeon card tape converter operator. Diet: You should follow a regular diet. Smoking: If you are a smoker, please avoid smoking. If you are a smoker who needs help quitting, please call the thoracic surgery clinic at [phone]. Shower/Bath: You may shower daily starting 2 days after chest tube removal, no soaking in a bath tub or swimming until your follow-up appointment. Incision care: Wash your chest tube site daily with soap and rinse well, pat dry. Assess for any signs of infection such as increased redness, pain, warmth or drainage. If you have worsening swellingof the tissue surrounding your chest tube site, or swelling that tracks into your chest, neck or face, call the thoracic surgery office immediately. If you had a chest tube, you may remove the dressing over the chest tube site in 2 days after the chest tube was removed and leave it open to the air if it is not draining. Otherwise change the dressing twice a day and as needed. The dressing may remain off once there is no drainage. Drainage from the chest tube site: Clear yellow drainage from the chest tube site is normal. However, if this become larger volume, requiring 5 or more dressing changes in 1-2 hours, you should call to discuss this with one of the thoracic nurses. If you notice worsening pain at the chest tube site, redness, swelling, or white/milky/cloudy drainage, please call the office immediately. Follow up appointments: You will see Dr. Casarez in 2 weeks with a chest Xray within one hour of theappointment. A letter will be mailed to you confirming your appointment information. Red Flags: If you have any new or worsening shortness of breath, chest pain, or difficulty breathing, please go to the closest emergency room for further evaluation and chest x ray. No future appointments. documented in this encounter Medications at Time [...] as of this encounter Progress Notes * Lan Phan RN - 07/23/2022 12:53 PM EST Patient discharged to home with no services. IV removed, site benign. Denies chest pain and shortness of breath. Discussed pain management with patient, medicated prior to discharge. Patient has all belongings and supplies needed. Discharge instructions were given & prescriptions reviewed. All questions answered. Patient verbalizes understanding. Patient encouraged to call with questions or concerns. * Fredy Barajas - 07/22/2022 3:46 PM EST Curriculum Coach Encounter Note Patient Name: Marco Antonio Xiong : [id number] MR#: [id number] Admit Date: 07/21/2022 2:56 PM Hospital Day 1 day Narrative:Visited to introduce and assess acceptance of Curriculum Coach services. Assessment: Patient was awake, alert, oriented and in bed. Patient coping positively with stresses of illness/hospitalization at this time. Patient was at bedside and has family care and supportand patient is hoping to go home. Intervention and Outcome:Provided emotional, spiritual support and listening presence. Curriculum Coach services accepted. Conversation to build trusting relationship. Provided pastoral presence. Provided spiritual guidance. Provided prayers. Follow-up: yes Time in Direct Care:10 Mins Fredy Barajas 07/22/2022 * Vy Suarez PA - 07/22/2022 10:26 AM EST Interventional Radiology Inpatient Progress Note Admitted 07/21/2022 Procedure(s): CT guided right lung biopsy and right chest tube placement Post-procedure day: #1 Time of patient encounter: 7:00AM 24 Hour Events: No acute events overnight. AVSS on RA overnight. Last Value 24 Hour Range Temperature 36.7 ??C (98.1 ??F) Temp: [36.4 ??C (97.6 ??F)-36.9 ??C (98.4 ??F)] Heart Rate 50 Heart Rate: [45-55] Blood Pressure 132/55 BP: (116-199)/(33-99) Respiratory Rate 16 Resp: [14-20] SpO2 97 % SpO2: [95 %-100 %] Physical Exam GEN No distress, A&O CARDS RRR LUNGS CTA B/L ABD Non tender, nondistended EXT R pigtail insertion site C/D/I Drains/Tubes (drainage over 24 hours) - 51mL serosang output overnight Labs: Reviewed - Last 3 wbc, hgb, hct plt Recent Labs 07/07/22 1053 02/26/22 2051 02/26/22 0444 WBC 7.4 7.7 7.8 HGB 13.2* 11.5* 11.8* HCT 39.5* 33.3* 33.8* PLATELET 288 294 256 Imaging: No relevant imaging post procedure. Assessment: 76 y.o. male POD#1 from RLL lung biopsy and right chest tube placement (requested per Thoracic Surgery) in the setting of FGD avid mass and right pleural effusion. Remainder of inpatient course per primary team. Plan: IR will sign-off at this time. Please page with further questions and concerns. Vy Suarez PA-C Interventional Radiology IR Team Pager [phone] * Jorge Christiansen MD - 07/22/2022 7:32 AM EST [facility] Department of Thoracic Surgery Inpatient Progress Note Patient Name: Marco Antonio Xiong Patient : 1945 Patient Patient Location: [address] [place] [address] Attending Surgeon: LANDEN CASAREZ ID: Marco Antonio Xiong is a 76 y.o. male with PMHx significant for an FDG avid right lower lobe lung mass and right pleural effusion now s/p IR CT guided needle biopsy and right pigtail placement 07/21/22. 24 Hour Events / Subjective: - NAEO - CT w/ 51 cc output overnight - Feeling well this AM, no complaints, pain well controlled Vitals: Temp: [36.2 ??C (97.2 ??F)-36.9 ??C (98.4 ??F)] Heart Rate: [45-69] Resp: [14-20] BP: (116-199)/(33-99) SpO2: [95 %-100 %] Heart Rate from SpO2: [44 bpm-57 bpm] Wt & BMI By Encounter Date Flowsheet Row Office Visit from 07/21/2022 in Thoracic Surgery at [facility] Office Visit from 07/07/2022 inCardiology at [facility] Weight 62.4 kg (137 lb 9.1 oz) 1 07/21/2022 0825 64.6 kg (142 lb 6.4 oz) 1 07/07/2022 0923 BMI 22.53 1 07/21/2022 0825 22.3 1 07/07/2022 0923 Physical Exam: Gen: NAD, pleasant HEENT: normocephalic, atraumatic, EOMI, sclerae anicteric Card: RRR, no M/R/G appreciated Pulm: Lungs CTAB, no wheeze/ronchi/rales appreciated, non-labored breathing on RA. Right pigtail secured in place draining thin SS fluid. Abd: soft, NT, ND Ext: warm, dry, no edema Neuro: A&Ox3, CN II-XII grossly intact, nonfocal, conversant I/O: I/O last 3 completed shifts: In: 160 [P.O.:160] Out: 751 [Urine:700; Other:51] Labs: Recent Results (from the past 72 hour(s)) Cell Count Body Fluid Pleural, Right Result Value Ref Range Spec Type BF Pleural, Right Color BF [place] Appearance BF Cloudy WBC BF Ct Not Measured <=499 Polymorph % Not Measured Mononuc % Not Measured Polymorph BF ABS Not Measured Mononuc ABS Not Measured Triglyceride Level Body Fluid Pleural, Right Result Value Ref Range Trig BF 58 mg/dL Trig, BF Type Pleural, Right Lactate Dehydrogenase Body Fluid Pleural, Right Result Value Ref Range LDH BF >2,500 unit/L LDH, BF Type Pleural, Right Protein Level Body Fluid Pleural, Right Result Value Ref Range Protein, BF 4.3 g/dL Protein BF Type Pleural, Right Diagnostics: CXR (Post-Op, 07/21): read pending Micro: NA Assessment: Marco Antonio Xiong is a 76 y.o. male with PMHx significant for an FDG avid right lower lobe lung massand right pleural effusion now s/p IR CT guided needle biopsy and right pigtail placement 07/21/22. Recovering well post-operatively. Will continue with CT to suction and consider removing tomorrow morning. Plan: Neuro: Tylenol Card: Metoprolol 12.5, Atorvastatin, ASA 81, Hydral PRN Pulm: IS/cough/deep breathe/OOB/ambulate. Continue right CT to -20sxn, monitor output. Follow up body fluid studies. FENGI: Regular diet. RBOs Renal/: monitor UOP Heme: SQH ID: N/A Endo: N/A PPx: Heparin Q8H Dispo: full code, floor status Jorge Christiansen MD 07/22/2022 Thoracic Surgery Service Pager [phone] Associated attestation - Landen Casarez MD - 07/24/2022 12:47 AM EST I have seen the patient in person and reviewed the resident's above history and I agree with the details as written. The assessment and plan were formulated in discussion with me and I agree with them as documented. Plan: Continue to await pathology results. Tube to suction. Landen Casarez MD Thoracic Surgery * Summer Parker, RN - 07/21/2022 4:01 PM EST Pt received AAOx3, at bedside, BP in the 180's, HR in 40's and 50's. Denies pain at the moment. made aware, no new orders placed at the moment. CT to LCS. Bed in lowest position, call light in hand. documented in this encounter H&P Notes * Rowan Victoria PA - 07/21/2022 3:26 PM EST [facility] Department of Thoracic Surgery Inpatient H&P Note [place], [place] [address] FAX: Patient Name: Marco Antonio Xiong Patient : 1945 Patient Patient Location: [address] [place] [address] Thoracic surgery attending: LANDEN CASAREZ MD HPI: Marco Antonio Xiong is a 76 y.o. male with PMHx significant for COPD and GERD with an FDG avid 4.3cm pleural based right lower lobe lung mass and chronic right pleural effusion that was found to be negative for malignancy after navigational bronchoscopy/EBUS and thoracentesis on 02/25/22 now having completed an extended course of azithromycin. Despite completing a prolonged antibiotic course he has a persistent right lower lobe mass for which CT guided needle biopsy and right pigtail placement with IR was recommended. He underwent a stress test on 07/01/22 which showed a large area of apical ischemia and an ejection fraction of 39%. Cardiology is recommending cardiac catheterization but given he would require antiplatelet therapy for at least six months, lung biopsy needs to be obtained to rule out malignancy and the need for thoracic surgical intervention. Today the patient reports feeling well and denies fever, cough or hemoptysis, chest pain or discomfort, SOB. Past Medical History: Patient Active Problem List Diagnosis Date Noted ??? Pleural effusion 07/21/2022 ??? 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 Chronic obstructive pulmonary disease ??? Gastroesophageal reflux disease ??? Lung nodule ??? Pulmonary asbestosis Past Surgical History: Past Surgical History: Procedure Laterality Date ??? CT GUIDED BIOPSY LUNG 07/21/2022 CT Guided Biopsy Lung 07/21/2022 Danny Barrios MD [facility] RAD CT SCAN ??? CT GUIDED DRAIN CHEST TUBE/PLEURAL DRAIN 07/21/2022 CT Guided Drain Chest Tube/Pleural Drain 07/21/2022 Danny Barrios MD [facility] RAD CT SCAN ??? PRO [facility] EBUS GUIDED SAMPL 1/2 NODE STATION/STRUX N/A 02/23/2022 BRONCH, W ENDOBRONCHIAL ULTRASOUND (EBUS) GUIDED SAMPLING, 1/2 NODES (WRVU 4.71) performed by Bipin Moseley MD at [facility] MAIN OR ??? PRO [facility] EBUS DX/TX INTERVENTION PERPH LES N/A 02/23/2022 BRONCH, W EBUS DURING INTERVENTION FOR PERIPH LESION (WRVU 1.4) performed by Bipin Moseley MD at [facility] MAIN OR ??? PRO BRONCHOSCOPY RIGID FLEX W COMPUTER ASSIST IMG NAVIGATION N/A 02/23/2022 BRONCHOSCOPY,RIGID OR FLEX,WITH IMAGE GUIDANCE ( ROBOT / MONARCH ) performed by Bipin Moseley MD at [facility] MAIN OR ??? PRO BRONCHOSCOPY, DIAGNOSTIC W LAVAGE N/A 02/23/2022 BRONCHOSCOPY, RIGID OR FLEXIBLE, WITH BRONCHIAL ALVEOLAR LAVAGE (WRVU 2.88) performed by Bipin Moseley MD at [facility] MAIN OR ??? PRO BRONCHOSCOPY, TRANSBRON ASPIR BX N/A 02/23/2022 BRONCHOSCOPY W/TRANSBRONCHIAL NEEDLE ASPIRATION BX,FLEXIBLE (WRVU 4) performed by Bipin Moseley MD at [facility] MAIN OR ??? PRO BRONCHOSCOPY, TRANSBRONCH BIOPSY N/A 02/23/2022 BRONCHOSCOPY (FLEXIBLE OR RIGID) W\TRANSBRONC BX (WRVU 3.8) performed by Bipin Recinos MDat [facility] [facility] MAIN OR ??? PRO BRONCHOSCOPY, TREAT ASPIR PULM TREE N/A 02/23/2022 BRONCHOSCOPY, W/THERAPEUTIC ASPIRATION OF TRACHEOBRONCHIAL TREE (WRVU 3.16) performed by Bipin Moseley MD at [facility] MAIN OR ??? PRO LARYNGOSCOPY, DIRECT DIAGNOSTIC N/A 02/26/2022 LARYNGOSCOPY, DIRECT, DIAGNOSIS, EXCEPT (WRVU 2.63) performed by Charlie Marte MD [facility] MAIN OR ??? PRO THORACENTESIS NEEDLE/CATH PLEURA W IMAGING N/A 02/23/2022 THORACENTESIS, NEEDLE OR CATHETER; WITH IMAGE GUIDANCE (WRVU 2.27) performed by Bipin Moseley MD at [facility] MAIN OR Medications: No outpatient medications have been marked as taking for the 07/21/22 encounter (Hospital Encounter). Allergies: No Known Allergies Family History: Family History Problem Relation Age of Onset ??? Malignant Hyperthermia Mother Social History: Social History Socioeconomic History ??? Marital status: Spouse name: Not on file ??? Number of children: Not on file ??? Years of education: Not on file ??? Highest education level: Not on file Occupational History ??? Not on file Tobacco Use ??? Smoking status: Former Packs/day: 2.00 Years: 32.00 Pack years: 64.00 Types: Cigarettes Start date: 1955 Quit date: 1986 Years since quittin.2 ??? Smokeless tobacco: Former Vaping Use ??? Vaping Use: Never used Substance and Sexual Activity ??? Alcohol use: Not Currently ??? Drug use: Never ??? Sexual activity: Not on file Other Topics Concern ??? Not on file Social History Narrative Lives with his in [place], [place] (2.5 hr). 3 kids, all grown up. 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 Originally from [place]. Social Determinants of Health Financial Resource Strain: Not on file Food Insecurity: Not on file Transportation Needs: Not on file Physical Activity: Not on file Housing Stability: Not on file Review of Systems: Negative except for above listed Vitals: Temp: [36.2 ??C (97.2 ??F)-36.9 ??C (98.4 ??F)] Heart Rate: [45-69] Resp: [14-20] BP: (142-199)/(33-99) SpO2: [95 %-100 %] Heart Rate from SpO2: [44 bpm-53 bpm] Wt & BMI By Encounter Date Flowsheet Row Office Visit from 07/21/2022 in Thoracic Surgery at [facility] Office Visit from 07/07/2022 inCardiology at [facility] Weight 62.4 kg (137 lb 9.1 oz) 1 07/21/2022 0825 64.6 kg (142 lb 6.4 oz) 1 07/07/2022 09 BMI 22.53 1 07/21/2022 0825 22.3 1 07/07/2022 09 Physical Exam: Gen: NAD, pleasant HEENT: normocephalic, atraumatic, EOMI, sclerae anicteric Card: RRR, no M/R/G appreciated Pulm: Lungs CTAB, no wheeze/ronchi/rales appreciated, non-labored breathing on RA. Right pigtail secured in place draining thin SS fluid. Abd: soft, NT, ND Ext: warm, dry, no edema Neuro: A&Ox3, CN II-XII grossly intact, nonfocal, conversant I/O: No intake/output data recorded. Labs: Recent Results (from the past 72 hour(s)) Cell Count Body Fluid Pleural, Right Result Value Ref Range Spec Type BF Pleural, Right Color BF [place] Appearance BF Cloudy WBC BF Ct Not Measured <=499 Polymorph % Not Measured Mononuc % Not Measured Polymorph BF ABS Not Measured Mononuc ABS Not Measured Triglyceride Level Body Fluid Pleural, Right Result Value Ref Range Trig BF 58 mg/dL Trig, BF Type Pleural, Right Lactate Dehydrogenase Body Fluid Pleural, Right Result Value Ref Range LDH BF >2,500 unit/L LDH, BF Type Pleural, Right Protein Level Body Fluid Pleural, Right Result Value Ref Range Protein, BF 4.3 g/dL Protein BF Type Pleural, Right Diagnostics: CXR (07/21/22): IMPRESSION 1. Redemonstration of right lower lobe pleural-based mass. 2. Small to moderate right-sided effusion. Trace left effusion. Micro: N/A Assessment: Marco Antonio Xiong is a 76 y.o. male with PMHx significant for an FDG avid right lower lobe lung massand right pleural effusion now s/p IR CT guided needle biopsy and right pigtail placement 07/21/22. He is recovering well post-procedure and we will continue to monitor his chest tube output. Plan: Neuro: Tylenol Card: Metoprolol 12.5, Atorvastatin, ASA 81, Hydral PRN Pulm: IS/cough/deep breathe/OOB/ambulate. Continue right CT to -20sxn, monitor output. Obtain CXR to follow up pigtail placement. Follow up body fluid studies. FENGI: Regular diet. RBOs Renal/: monitor UOP Heme: SQH ID: N/A Endo: N/A PPx: Heparin Q8H Dispo: full code, floor status All plans formulated in discussion with and directed by attending thoracic surgeon Dr. Casarez. ADRIANO Carvalho 07/21/2022 Thoracic Surgery Service Pager [phone] Associated attestation - Landen Casarez MD - 07/24/2022 12:46 AM EST I have seen the patient in person and reviewed the resident's above history and I agree with the details as written. The assessment and plan were formulated in discussion with me and I agree with them as documented. Pertinent History: 89y/o male presenting with 5cm RLL lung mass concerning for lung cancer, now s/p CT guided lung biopsy and pigtail catheter placement to drain chronic right effusion. Pertinent Exam: Older gentleman in NAD. Breathing non-labored. RRR. No pedel edema. Alert and oriented. Major issues addressed: Need for biopsy and pigtail catheter placement. Plan: Will keep tube to suction x 48 hours to assist with lung expansion and await pathology results. Landen Casarez MD Thoracic Surgery documented in this encounter Miscellaneous Notes * Care Management Discharge - Emerald Bowers RN - 07/23/2022 11:47 AM EST CARE MANAGEMENT FINAL DISCHARGE NOTE Chart reviewed, care reviewed with primary team and at interdisciplinary rounds. Patient is medically ready for discharge to home w/o services, no needs. Needs for Transition of Care: Plan for discharge is: Home w/o Services Outpatient Agency/Support Group Needs: None Transportation: family or friend will provide Functional status prior to admission: Independent Home Environment: Others in the home: spouse (Patient lives with his Bhavna). Current LivingArrangements: mobile home. Accessibility Concerns:Patient and live in a mobile home with 2 steps to enter. Current Functional Ability: Independent DME used at home: grab bar - tub/shower DME Needed at Discharge: none Patient is insured through: Primary Insurance: MEDICARE Payor: MEDICARE / Plan: MEDICARE PART A & B / Product Type: *No Product type* / Secondary Insurance: N/A Prescription Coverage: Yes This plan was formulated with input from patient and team. All are in agreement with plan. Emerald Bowers RN-BSN-CM Pager: [phone] * Initial Assessments - Karla Moore RN - 07/22/2022 12:28 PM EST Office of Care Management Initial Assessment Karla Moore RN reviewed record and discussed patient with Care Team. Source of Information: Team, bedside nurse, medical record, and Spouse Introduced self/reviewed role; services accepted. Reason for Hospitalization: IR CT guided needle biopsy and right pigtail placement?? Covid Vaccination Status: 1st, 2nd & booster (Pfizer X3) Last COVID test: Past medical History: Past Medical History: Diagnosis Date ??? Chronic obstructive pulmonary disease ??? Gastroesophageal reflux disease ??? Lung nodule ??? Pulmonary asbestosis Hospitalizations Within the Past 30 Days: no previous admission in last 30 days Current Decision-Making Capacity: Self If AD's have not been completed the following surrogate would be surrogate decision maker per [place] decision making law. (Only good for 180 days) Any patient receiving care in [place] must abide by [place] law. The hierarchy for surrogate decision making is: (a) Patient???s spouse, or civil union partner or common law spouse unless there is a divorce proceeding, separation agreement, or restraining order limiting that person???s relationship with the patient. (b) Any adult son or daughter of the patient. (c) Either parent of the patient. (d) Any adult brother or sister of the patient. (e) Any adult grandchild of the patient. (f) Any grandparent of the patient. (g) Any adult aunt, uncle, niece, or nephew of the patient. (h) A close friend of the patient. (i) The agent with financial power of civil litigation attorney or a conservator appointed in accordance with RSA 464-A. (j) The guardian of the patient???s estate. Advance Care Planning: Attempt Cardiopulmonary Resuscitation - Inpatient <no information> -Advanced Directive: No, declines Current Coping/Education/Information Needs: denies at this time Current Functional Ability: Assistive Person Functional Status Prior to Admission: Independent Prior ADLs & IADLs: Independent with all ADLs & IADLs Home Environment: Others in the home: spouse (Patient lives with his Bhavna). Current LivingArrangements: mobile home. Accessibility Concerns:Patient and live in a mobile home with 2 steps to enter. Resource / Environmental Concerns: Resource/Environmental Concerns: none Current DME: grab bar - tub/shower Home Address confirmed as: [address] [facility] [address] Physical address: [address] [place] [address] Social & Family Supports: All names listed below confirmed with patient as current and correct Extended Emergency Contact Information Primary Emergency Contact: Bhavna Xiong [facility] Mobile Relation: Spouse Secondary Emergency Contact: Ronal Xiong Mobile Relation: Child Current Care Provided by: self Provides Primary Care For: no one Caregiver if needed: spouse Quality of Family relationships: helpful, involved, supportive Community Resources being provided currently: none Behavioral Health History: denies Substance Use/Abuse listed: Social History Tobacco Use Smoking Status Former ??? Packs/day: 2.00 ??? Years: 32.00 ??? Pack years: 64.00 ??? Types: Cigarettes ??? Start date: 1955 ??? Quit date: 1986 ??? Years since quittin.2 Smokeless Tobacco Former 0 No problems reported 1-2 Low level 3-5 Moderate level 6-8 Substantial level 9- 10 Severe level 0 to 7 points: Low risk 8 to 15 points: Medium risk 16 to 19 points: High risk 20 to 40 points: Addiction likely Other Pertinent/Service Specific Information: denies at this time Health/Prescription Coverage: Primary Insurance: MEDICARE Payor: MEDICARE / Plan: MEDICARE PART A & B / Product Type: *No Product type* / Secondary Insurance: N/A ONLY if patient has Medicare A&B - Does this patient have secondary insurance?: Yes ([facility]) ; Prescription Coverage: Yes Preferred Pharmacy: [id number] & [address] [id number] Status: Patient is a : No Primary Care Provider confirmed: ADRIANO Sheriff [phone] Patient/Caregiver Goals of Treatment: return home when medically ready for discharge. Potential Needs for Transition of Care: home health care Agency Referrals: I have met with the patient to: ?? discuss discharge planning needs. ?? provide the [facility], Office of Care Management letter from the Parts Control Clerk pertaining to rehabreferrals. ?? provide a letter describing our affiliations within the [facility] and educate about their right to choose where referrals are sent. ?? provide a list of Home Health Agencies / Durable Medical Equipment vendors which serve their preferred geographic area. ?? provided patient with [facility] Star Quality Rating handout. They have requested referrals to: [facility] [address] [address] and Note routed to a Sales Attendant Building Materials who will communicate referrals to facilities and provide any required information. Transportation: no concerns Transportation Anticipated: family or friend will provide Concerns to be Addressed: denies needs/concerns at this time Assessment: Patient is admitted to thoracis service for IR CT guided needle biopsy and right pigtail placement?? Plan: patient currently with a chest tube in place at -20 suction, OOB and ambulating, should discharge tomorrow with no needs. If needs [facility] choice was obtained today. A member of the Care Management team will continue to monitor progress, follow for continuity of care and assist with transition of care planning. Karla ARROYO, RN Phone: [phone] Pager: [phone] documented in this encounter Plan of Treatment Upcoming Encounters Date Type Department Care Team (Late st Contact Info) Description 06/20/2024 10:00 AM EST Office Visit Hematology/Oncology at [address] [phone] HEMATOLOGY [place] [address] 06/20/2024 10:30 AM EST Infusion Hematology Oncology at [address] [phone] 07/04/2024 11:00 AM EST Office Visit Hematology/Oncology at [address] [phone] [address] HEMATOLOGY [place] [address] 07/04/2024 11:30 AM EST Infusion Hematology Oncology at [address] [phone] documented as of this encounter Procedures Procedure Name Priority Date/Time Associated Diagnosis Comments XR CHEST PA AND LATERAL Routine 07/23/2022 11:25 AM EST XR CHEST PA AND LATERAL Routine 07/21/2022 10:00 PM EST BODY FLUID CULTURE, AEROBIC Routine 07/21/2022 11:55 AM EST documented in this encounter Results * XR [...] who have questions please contact the health farm or ranch animal caretaker that requested your imaging first. ? Electronically signed by: Kwaku Padron MD, [facility] ([phone]), at 08/14/2022 11:58 AM Narrative 08/14/2022 11:58 [...] patients who have questions please contactthe health farm or ranch animal caretaker that requested your imaging first. Electronically signed by: Kwaku Padron MD, [facility]([phone]), at 08/14/2022 11:58 AM Landen Casarez MD IMG DX ORDERABLES * XR Chest PA & Lateral (Generic) (07/23/2022 11:25 AM EST) Anatomical Region Laterality Modality Chest N/A Digital Radiogra phy Impressions 07/23/2022 1:56 PM EST 1. ??Interval removal of right basal pigtail pleural catheter. 2. ??Redemonstration of right lower lobe pleural-based mass. 3. ??Unchanged small to moderate right-sided hydropneumothorax. Trace left-sided effusion. 4. ??New subcutaneous emphysema in the right lateral chest wall. Preliminary report signed by: Leonardo Skelton at 07/23/2022 1:55 PM I have personally reviewed the image(s) and the resident's interpretation and agree with the findings, Kwaku Padron MD at 07/23/2022 1:56 PM Thank you for letting us participate in the care of this patient. ??If you are a health care provider and have any questions regarding this report, please contact the number below. ??For patients who have questions please contact the health farm or ranch animal caretaker that requested your imaging first. ? Electronically signed by: Kwaku Padron MD, [facility] ([phone]), at 07/23/2022 1:56 PM Narrative 07/23/2022 1:56 PM EST EXAMINATION: XR CHEST PA AND LATERAL (GENERIC) CLINICAL HISTORY: s/p pigtail removal, please assess ??for ptx/effusion/changes TECHNIQUE: PA and lateral views of the chest COMPARISON: Chest x-ray 07/31/2022 FINDINGS: Interval removal of right basal pigtail catheter. Cardiac mediastinal silhouette and hilar contours are within normal limits. Redemonstration of soft tissue opacity in the right lower lobe consistent with the known pleural-based mass. Similar small to moderate right-sided hydropneumothorax. Trace left effusion. Calcified pleural plaques are noted. New subcutaneous emphysema in the right lateral chest wall. Procedure Note Kwaku Padron MD - 07/23/2022 EXAMINATION: XR CHEST PA AND LATERAL (GENERIC) CLINICAL HISTORY: s/p pigtail removal, please assess forptx/effusion/changes TECHNIQUE: PA and lateral views of the chest COMPARISON: Chest x-ray 07/31/2022 FINDINGS: Interval removal of right basal pigtail catheter. Cardiac mediastinalsilhouette and hilar contours are within normal limits. Redemonstration of softtissue opacity in the right lower lobe consistent with the known pleural-basedmass. Similar small to moderate right-sided hydropneumothorax. Trace lefteffusion. Calcified pleural plaques are noted. New subcutaneous emphysema in theright lateral chest wall. IMPRESSION 1. Interval removal of right basal pigtail pleural catheter. 2. Redemonstration of right lower lobe pleural-based mass. 3. Unchanged small to moderate right-sided hydropneumothorax. Traceleft-sided effusion. 4. New subcutaneous emphysema in the right lateral chest wall. Preliminary report signed by: Lenoardo Skelton at 07/23/2022 1:55 PM I have personally reviewed the image(s) and the resident's interpretationand agree with the findings, Kwaku Padron MD at 07/23/2022 1:56 PM Thank you for letting us participate in the care of this patient. If youare a health care provider and have any questions regarding this report,please contact the number below. For patients who have questions please contactthe health farm or ranch animal caretaker that requested your imaging first. Electronically signed by: Kwaku Padron MD, [facility]([phone]), at 07/23/2022 1:56 PM Chanara Zaria Mcleod, SPECIAL EVENTS DIRECTOR IMG DX ORDERABL ES * XR Chest PA & Lateral (Generic) (07/21/2022 10:00 PM EST) Anatomical Region Laterality Modality Chest N/A Digital Radiogra phy Impressions 07/22/2022 8:50 AM EST 1. ??Right-sided hydropneumothorax with small air and small fluid components with pigtail pleural catheter present. 2. ??Redemonstration of right lower lobe rounded mass. 3. ??Unchanged streaky lung base opacities, likely atelectasis. Thank you for letting us participate in the care of this patient. ??If you are a health care provider and have any questions regarding this report, please contact the number below. ??For patients who have questions please contact the health farm or ranch animal caretaker that requested your imaging first. ? Electronically signed by: Wilmer Reynolds MD, [facility] ([phone]), at 07/22/2022 8:50 AM Narrative 07/22/2022 8:50 AM EST EXAMINATION: XR CHEST PA AND LATERAL (GENERIC) CLINICAL HISTORY: s/p right pigtail placement Interval change TECHNIQUE: PA and lateral views of the chest, 2 images COMPARISON: Chest radiograph 07/21/2022. Images from CT-guided procedure 07/21/2022 FINDINGS: Right-sided pigtail pleural catheter projects over the right costophrenic angle. Redemonstration of an approximately 3.5 cm rounded mass projecting over the right lower lobe. There is calcifications along the right and left pleura. Unchanged hazy opacities throughout the right inferior hemithorax. Air-fluid level within the right hemithorax consistent with hydropneumothorax with small air and small fluid components. No left-sided pneumothorax. There is a trace left effusion which is unchanged. No pulmonary vascular congestion. Irregular contour of the left clavicle consistent with healed fracture deformity. There is a moderate size hiatal hernia better depicted on prior CT. Procedure Note Wilmer Reynolds MD - 07/22/2022 EXAMINATION: XR CHEST PA AND LATERAL (GENERIC) CLINICAL HISTORY: s/p right pigtail placement Interval change TECHNIQUE: PA and lateral views of the chest, 2 images COMPARISON: Chest radiograph 07/21/2022. Images from CT-guided procedure 07/21/2022 FINDINGS: Right-sided pigtail pleural catheter projects over the right costophrenicangle. Redemonstration of an approximately 3.5 cm rounded mass projecting overthe right lower lobe. There is calcifications along the right and leftpleura. Unchanged hazy opacities throughout the right inferior hemithorax.Air-fluid level within the right hemithorax consistent with hydropneumothorax withsmall air and small fluid components. No left-sided pneumothorax. There is atrace left effusion which is unchanged. No pulmonary vascular congestion.Irregular contour of the left clavicle consistent with healed fracture deformity.There is a moderate size hiatal hernia better depicted on prior CT. IMPRESSION 1. Right-sided hydropneumothorax with small air and small fluidcomponents with pigtail pleural catheter present. 2. Redemonstration of right lower lobe rounded mass. 3. Unchanged streaky lung base opacities, likely atelectasis. Thank you for letting us participate in the care of this patient. If youare a health care provider and have any questions regarding this report,please contact the number below. For patients who have questions please contactthe health farm or ranch animal caretaker that requested your imaging first. Electronically signed by: Wilmer Reynolds MD, [facility]([phone]), at 07/22/2022 8:50 AM Landen Casarez MD IMG DX ORDERABLES * Body Fluid Culture, Aerobic (07/21/2022 11:55 AM EST) Body Fluid Culture No growth [facility] Gram Stain Neutrophils seen No microorganisms seen. Cytocentrifuge Gram Stain performed [facility] Pleural Fluid 07/21/2022 11: 55 AM EST 07/22/2022 8:16 AM EST Comment:Right Pleural fluid Narrative Resulting Agency Comment Spec In Lab Landen Casarez MD MICROBIOLOGY - GENER AL ORDERABLES [facility] [place] [address] documented in this encounter Visit Diagnoses Diagnosis Pleural effusion- Primary Unspecified pleural effusion Pleural effusion Unspecified pleural effusion Pleural effusion Unspecified pleural effusion documented in this encounter Admitting Diagnoses Diagnosis Pleural effusion Unspecified pleural effusion documented in this encounter Administered Medications Inactive Administered Medications - up to 3 most recent administrations Medication Order MAR Action Action Date Dose Rate Site acetaminophen (Tylenol) tablet 1,000 mg 1,000 mg, Oral, EVERY 6 HOURS SCHEDULED, First dose on Wed07/21/22 at 1800, Until Discontinued, Maximum dose of acetaminophen is 4,000 mg from all sources in 24 hours. When ordered for pain, acetaminophen should be given even when other ordered pain medications are indicated. , Routine Given 07/23/2022 6:44 AM EST 1,000 mg Given 07/23/2022 12:09 AM EST 1,000 mg Given 07/22/2022 6:00 PM EST 1,000 mg aspirin EC tablet 81 mg 81 mg, Oral, DAILY, First dose on Wed07/22/22 at 0900, Until Discontinued, Routine Given 07/22/2022 9:00 AM EST 81 mg heparin (porcine) (5,000 units/1 mL) subcutaneous injection 5,000 Units 5,000 Units, Subcutaneous, EVERY 8 HOURS SCHEDULED, First dose on Wed07/21/22 at 1700, Until Discontinued, Routine Given 07/23/2022 6:44 AM EST 5,000 Unit s Given 07/22/2022 9:38 PM EST 5,000 Units Given 07/22/2022 2:00 PM EST 5,000 Units hydrALAZINE (Apresoline) (20 mg/mL) injection 10 mg 10 mg, Intravenous, EVERY 6 HOURS PRN, Starting on Wed07/21/22 at 1613, Until Wed07/23/22 at 1454, High Blood Pressure, For SBP >160 Given 07/21/2022 4:33 PM EST 10 mg pantoprazole EC (Protonix) tablet 40 mg 40 mg, Oral, DAILY, First dose on Wed07/22/22 at 0900, Until Discontinued Given 07/22/2022 9:00 AM EST 40 mg senna-docusate (Pericolace) 8.6-50 mg per tablet 2 tablet 2 tablet, Oral, 2 TIMES DAILY, First dose on Wed07/21/22 at 2100, Until Discontinued, Routine Given 07/22/2022 9:00 AM EST 2 tablets Given 07/21/2022 10:00 PM EST 2 tablets sodium chloride 0.9 % (flush) (BD PosiFlush Normal Saline 0.9) flush 5 mL 5 mL, Intravenous, 2 TIMES DAILY, First dose on Wed07/21/22 at 2100, Until Discontinued, Routine Given 07/23/2022 9:00 AM EST 5 mLs Given 07/22/2022 8:10 PM EST 5 mLs Given 07/22/2022 9:00 AM EST 5 mLs documented in this encounter Active and Recently Administered Medications Times are shown in EST. Scheduled Medication Order 07/21/2022 07/22/2022 07/23/2022 acetaminophen (Tylenol) tablet 1,000 mg 1,000 mg, Oral, EVERY 6 HOURS SCHEDULED, First dose on Wed07/21/22 at 1800, Until Discontinued, Maximum dose of acetaminophen is 4,000 mg from all sources in 24 hours. When ordered for pain, acetaminophen should be given even when other ordered pain medications are indicated. , Routine 1800 (Given - Provider: Summer Parker RN)2330 (Given - Provider: Ari Cole RN) 0548 (Given - Provider: Ari Cole RN)1200 (Given - Provider: Summer Parker RN)1800 (Given - Provider: Summer Parker RN) 0009 (Given - Provider: Ari Cole RN)0644 (Given - Provider: Ari Cole RN)1200 (Due) aspirin EC tablet 81 mg 81 mg, Oral, DAILY, First dose on Wed07/22/22 at 0900, Until Discontinued, Routine 0900 (Given - Provider: Summer Parker RN) 0900 (Not Given - Provider: Lan Phan RN - Reason: Patient/family refused) atorvastatin (Lipitor) tablet 40 mg 40 mg, Oral, EVERY EVENING, First dose on Wed07/23/22 at 1700, Until Discontinued, Routine heparin (porcine) (5,000 units/1 mL) subcutaneous injection 5,000 Units 5,000 Units, Subcutaneous, EVERY 8 HOURS SCHEDULED, First dose on Wed07/21/22 at 1700, Until Discontinued, Routine 1700 (Given - Provider: Summer Parker RN)2214 (Given - Provider: Ari Cole RN) 0548 (Given - Provider: Ari Cole RN)1400 (Given - Provider: Summer Parker RN)2138 (Given - Provider: Ari Cole RN) 0644 (Given - Provider: Ari Cole RN) metoprolol succinate XL (Toprol-XL) tablet 12.5 mg 12.5 mg, Oral, DAILY, First dose on Wed07/22/22 at 0900, Until Discontinued, DO NOT CRUSH OR OPEN Hold for SBP<90 or HR<60, Routine 0900 (Not Given - Provider: Summer Parker RN - Reason: Order parameters not met) 0900 (Not Given - Provider: Lan Phan RN - Reason: Order parameters not met) pantoprazole EC (Protonix) tablet 40 mg 40 mg, Oral, DAILY, First dose on Wed07/22/22 at 0900, Until Discontinued 0900 (Given - Provider: Summer Parker RN) 0900 (Not Given - Provider: Lan Phan RN - Reason: Patient/family refused) senna-docusate (Pericolace) 8.6-50 mg per tablet 2 tablet 2 tablet, Oral, 2 TIMES DAILY, First dose on Wed07/21/22 at 2100, Until Discontinued, Routine 2200 (Given - Provider: Ari Cole RN) 0900 (Given - Provider: Summer Parker RN)2100 (Not Given - Provider: Ari Cole RN - Reason: Patient/family refused) 0900 (Not Given - Provider: Lan Phan RN - Reason: Patient/family refused) sodium chloride 0.9 % (flush) (BD PosiFlush Normal Saline 0.9) flush 5 mL 5 mL, Intravenous, 2 TIMES DAILY, First dose on e 07/21/22 at 2100, Until Discontinued, Routine 2200 (Given - Provider: Ari Cole RN) 09 (Given - Provider: Summer Parker RN)2009 (Given - Provider: Ari Cole RN) 09 (Given - Provider: Lan Phan RN) PRN Medication Order 07/21/2022 07/22/2022 07/23/2022 hydrALAZINE (Apresoline) (20 mg/mL) injection 10 mg 10 mg, Intravenous, EVERY 6 HOURS PRN, Starting on e 07/21/22 at 1613, Until Aileen 07/23/22 at 1454, High Blood Pressure, For SBP >160 1633 (Given - Provider: Summer Parker RN) lidocaine (Xylocaine) 1% (10 mg/mL) injection 3 mg 3 mg (0.3 mL), Subcutaneous, ONCE PRN, 1 dose, Starting on e 07/21/22 at 1613, Until Aileen 07/23/22 at 1454, for discomfort with PIV insertion, Routine sodium chloride 0.9 % (flush) (BD PosiFlush Normal Saline 0.9) flush 5-20 mL 5-20 mL, Intravenous, EVERY 1 MIN PRN, Starting on e 07/21/22 at 1613, Until Aileen 07/23/22 at 1454, flush, Flush pertains to all indwelling lines. Flush per protocol found in the job aid using the link provided on this medication record., Routine documented in this encounter Care Teams Gasoline Attendant Relationship Specialty Start Date End Date Kadi Lane [place] [address] PCP - General Family Medicine 07/28/16 documented as of this encounter
--- OUTSIDE RECORDS SUMMARY | 2024-06-20 01:28 | XMS_ITS | Encounter Summary ---
Author Organization [facility] [place] [address] Care Team Providers Care Aircraft Steel Fabricator Name Role Phone Kadi Lane Primary Care Provider [phone] Encounter Details Date Type Department Care Team (Latest Contact Info) Description 07/07/2022 Travel Social History Tobacco Use Types Packs/Day [...] AM EST Office Visit Hematology/Oncology at [address] [phone] Lia Barber APRN [address] [place] [address] DR HEMATOLOGY AND ONCOLOGY [place], [place] [address] 06/20/2024 10:30 AM EST Infusion Hematology Oncology at [address] [phone] 07/04/2024 11:00 AM EST Office Visit Hematology/Oncology at [address] [phone] Lia Barber APRN [address] [place] [address] DR HEMATOLOGY AND ONCOLOGY [place], [place] [id number] 07/04/2024 11:30 AM EST Infusion Hematology Oncology at [address] [phone] documented as of this encounter Visit Diagnoses Not on filedocumented in this encounter Care Teams Aircraft Steel Fabricator Relationship Specialty Start Date End Date Kadi Lnae PA [address] [place] [address] PCP - General Family Medicine 07/28/16 documented as of this encounter
--- OUTSIDE RECORDS SUMMARY | 2024-06-20 01:28 | XMS_ITS | Encounter Summary ---
[facility] [place] [address] Care Team Providers Care Animal Handler Name Role Phone Kadi Lane Primary Care Provider [phone] Encounter Details Date Type Department Care Team (Latest Contact Info) Description 08/12/2022 Travel Social History Tobacco Use Types Packs/Day Years Used Date Smoking Tobacco: Former Cigarettes 2 32 1 956 - 8221 Smokeless Tobacco: Former Alcohol Use Standard Drinks/Week Comments Not Currently 0 (1 standard drink = 0.6 oz pur e alcohol) Overall Financial Resource Strain (CARDIA) Answe r Date Recorded How hard is it for you to pa y for the very basics like food, housing, medical care, and heating? Not very hard 08/12/2022 Hunger Vital Sign Answer Date Recorded Within the past 12 months, y ou worried that your food would run out before you got the money to buy more. Never true 08/13/19 23 Within the past 12 months, t he food you bought just didn't last and you didn't have money to get more. Never true 08/12/2022 PRAPARE - Transportation Answer Date Re corded In the past 12 months, has l ack of transportation kept you from medical appointments or from getting medications? No 07/16 In the past 12 months, has l ack of transportation kept you from meetings, work, or from getting things needed for daily living? No 08/12/2022 Housing Stability Vital Sign Answer Miky e Recorded In the last 12 months, was t here a time when you were not able to pay the mortgage or rent on time? No 08/12/2022 In the last 12 months, how many places have you lived? 1 08/12/2022 In the last 12 months, was t here a time when you did not have a steady place to sleep or slept in a jail (including now)? No 08/12/2022 Sex and Gender Information Value Date Recorded Sex Assigned at Male 10/05/2023 6:23 PM EDT Gender Identity Male 10/05/2023 6:23 PM EDT Sexual Orientation Straight 10/05/2023 6: 23 PM EDT documented as of this encounter Plan of Treatment Upcoming Encounters Date Type Department Care Team (Late st Contact Info) Description 06/20/2024 10:00 AM EST Office Visit Hematology/Oncology at [address] [phone] Lia Barber [address] HEMATOLOGY AND ONCOLOGY [place], [place] [id number] 06/20/2024 10:30 AM EST Infusion Hematology Oncology at [address] [phone] 07/04/2024 11:00 AM EST Office Visit Hematology/Oncology at [address] [phone] HEMATOLOGY [place] [address] 07/04/2024 11:30 AM EST Infusion Hematology Oncology at [address] [phone] documented as of this encounter Visit Diagnoses Not on filedocumented in this encounter Care Teams Animal Handler Relationship Specialty Start Date End Date Kadi Lane PA [facility] [place] [address] PCP - General Family Medicine 07/28/16 documented as of this encounter
--- OUTSIDE RECORDS SUMMARY | 2024-06-20 01:28 | XMS_ITS | Encounter Summary ---
[place] [address] Care Team Providers Care Log Grader Name Role Phone Kadi Lane Primary Care Provider [phone] Encounter Details Date Type Department Care Team (Late st Contact Info) Description 08/14/2022 12:45 PM EDT Office [place] [phone] Landne Goodman MD [address] [place] [phone] Right lower lobe lung mass; Recurrent pleural [...] in a fdc (including now)? No 08/14/2022 Sex and Gender Information Value Date Recorded Sex Assigned at Male 10/05/2023 6:23 PM EDT Gender Identity Male 10/05/2023 6:23 PM EDT Sexual Orientation Straight 10/05/2023 6: 23 PM EDT documented as of this encounter Patient Instructions * Patient Instructions* Mary Douglas RN - 08/14/2022 12:45 PM EDT Thank you for visiting Dr. Goodman in clinic 08/14/22 Dr. Goodman would like to see you back in clinic after your procedure with cardiology. You will receive a call to schedule this appointment. Exercise each day for 30 minutes or longer. Daily aerobic exercise for at least 30 minutes will help improve your endurance and improve the breathing capacity of your lungs. This means that you are breathing hard, your heart is beating fast and that you are sweating. Examples of this include walking, biking, swimming, and using a treadmill or stationary bike. Please call Thoracic surgery at with any questions or concerns. documented in this encounter Progress Notes * Chana Enciso APRN - 08/14/2022 12:45 PM EDT Thoracic Surgery Attending Outpatient Follow Up Note Landen Goodman MD [place] [address] FAX: Reason for Visit: s/p CT guided biopsy, squamous cell carcinoma HPI: Marco Antonio Xiong is a 76 y.o. male who is s/p CT guided needle biopsy of the RLL mass, pigtailplacement for pleural effusion drainage on 07/21/22. 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 He has been seen by radiation oncology (Dr Pope) on 08/12/22 and medical oncology today (Dr. Vincent). He is scheduled for his cardiac cath on 08/28/22. He presents today in follow up and reports stable shortness of breath which he notices mostly with the cold air. Otherwise he denies f/c/n/v/CP. Medications: Current Outpatient Medications on File Prior to [...] mouth every morning. No current facility-administered medications on file prior to visit. Physical Exam: There were no vitals taken for this visit. General Appearance: Alert, cooperative, no distress, appears stated age Nk: Supple, symmetrical, trachea midline, no adenopathy; thyroid: not enlarged, symmetric, no tenderness/mass/nodules Lungs: Clear to auscultation bilaterally, respirations unlabored, no wheezes, crackles or ronchi. Heart: Regular rate and rhythm, S1 and S2 normal, no murmur, rub, or gallop Abdomen: Soft, non-tender, bowel sounds active all four quadrants, no masses, no organomegaly Extremities: Extremities normal, atraumatic, no cyanosis or edema Wound/Incision: Well healed right pigtail catheter site Imaging: I have independently visualized the following studies: CXR (08/14/2022): Right-sided hydropneumothorax with an increase in the volume of the fluid component. Assessment: Marco Antonio Xiong is a 76 y.o. male s/p CT guided needle biopsy of a RLL mass, positive for squamouscell carcinoma. He is currently recovering well. Plan: 1. Follow up with Medical Oncology and Radiation Oncology as scheduled 2. Follow up with Cardiology as scheduled, cath scheduled for 08/28/22 3. 30 minutes of exercise daily at a minimum 4. Follow up with PCP as scheduled 5. Call with any questions or concerns Chana Enciso APRN 08/14/2022 Thoracic Surgery [facility] * Landen Goodman MD - 08/14/2022 12:45 PM EDT Thoracic Surgery Attending Outpatient Follow Up Note Landen Goodman MD [place] [address] FAX: Reason for Visit: s/p CT guided biopsy, squamous cell carcinoma HPI: Marco Antonio Xiong is a 76 y.o. male who is s/p CT guided needle biopsy of the RLL mass and pigtail placement for pleural effusion drainage on 07/21/22. As you recall, he initially presented with an FDG avid 4.3cm pleural based right lower lobe lung??mass??and chronic right pleural effusion that was found to be negative for malignancy after navigational bronchoscopy/EBUS and thoracentesis on 02/25/22. He completed an extended course of azithromycin, however despite this, he had a persistent right lower lobe mass for which CT guided needle biopsy and right pigtail placement with IR was recommended. He underwent a stress test on 07/01/22 which showed a large area of apical ischemia and an ejection fraction of 39%. Cardiology subsequently recommended cardiac catheterization but given he would require antiplatelet therapy for at least six months, lung biopsy needed to be obtained to rule out malignancy and the need for??thoracic??surgical intervention. He subsequently underwent his RLL lung biopsy which came back positive for squamous cell carcinoma.He has been seen by radiation oncology (Dr Pope) on 08/12/22 and medical oncology today (Dr. Vincent). He is scheduled for his cardiac cath on 08/28/22. He presents today in follow up and reports stable shortness of breath which he notices mostly with the cold air. Otherwise he denies f/c/n/v/CP. Medications: Current Outpatient Medications on File Prior to [...] mouth every morning. No current facility-administered medications on file prior to visit. Physical Exam: There were no vitals taken for this visit. General Appearance: Alert, cooperative, no distress, appears stated age Nk: Supple, symmetrical, trachea midline, no adenopathy; thyroid: not enlarged, symmetric, no tenderness/mass/nodules Lungs: Clear to auscultation bilaterally, respirations unlabored, no wheezes, crackles or ronchi. Heart: Regular rate and rhythm, S1 and S2 normal, no murmur, rub, or gallop Abdomen: Soft, non-tender, bowel sounds active all four quadrants, no masses, no organomegaly Extremities: Extremities normal, atraumatic, no cyanosis or edema Wound/Incision: Well healed right pigtail catheter site Imaging: I have independently visualized the following studies: CXR (08/14/2022): Right-sided hydropneumothorax with an increase in the volume of the fluid component. Assessment: Marco Antonio Xiong is a 76 y.o. male s/p CT guided needle biopsy of a RLL mass, positive for squamouscell carcinoma. He is currently recovering well. Plan: 1. Follow up with Medical Oncology and Radiation Oncology as scheduled 2. Follow up with Cardiology as scheduled, cath scheduled for 08/28/22 3. 30 minutes of exercise daily at a minimum 4. Follow up with PCP as scheduled 5. Call with any questions or concerns Chana Enciso, MOBILE UI DEVELOPER 08/14/2022 Thoracic Surgery [facility] Attending Attestation: I have seen the patient in person and reviewed the resident's above history and I agree with the details as written. The assessment and plan were formulated in discussion with me and I agree with them as documented. Pertinent History: In brief this is a 76-year-old male that presents with a right lower lobe lung mass that previously did not have a biopsy. 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 Pertinent Exam: This is an older male who is accompanied by his son and his daughter is on thephone line. He is well-appearing. His breathing is nonlabored. He has no obvious pedal edema and a thin body habitus. Major issues addressed: Discussion of biopsy results and next recommended steps in treatment. Plan: In brief this is a 76-year-old male who presented with a 4.3 cm pleural- based right lower lobe lung mass and chronic right pleural effusion that underwent CT-guided lung biopsy diagnosing squamous cell carcinoma and demonstrated an effusion with no positive findings. Of note he had an EBUS bef ore that was negative. We had previously discussed the results of this during his hospital stay. Asyou know, in work-up for this lung mass he underwent a stress test which was positive. Referral to cardiology was concerning for possible unstable angina given his symptoms and cardiac cath was recommended. We were able to facilitate biopsy before this cath and now have a plan as to how to proceed pending the results. If his cath is positive and he requires stenting and dual anticoagulation therapy we will proceed with stereotactic body radiation therapy by her radiation oncologist and chemotherapy. Should his catheter and straight no significant cardiac disease, we would recommend proceedingforward with surgical resection and chemotherapy either in the induction or adjuvant setting. He isscheduled to undergo a cardiac cath on August 28, 2022. We will await those results. Regarding his pleural effusion this is still present though somewhat smaller than it was initially but bigger than what it was when he got discharged. If we proceed with surgical resection, this willbe handled at the time of his operation. If we do not proceed with surgical resection, he may require a Pleurx catheter to help manage this in the treatment setting. I spent the remainder of the appointment answering he and his family's questions. I counseled them on having fun during their vacation but that if he had any sign of new shortness of breath chest pain or discomfort to present to his local emergency room for evaluation given his presumed underlying heart disease. He and his family understood and were agreeable to this. Plan: 1. Follow up with Medical Oncology and Radiation Oncology as scheduled. 2. Follow up with Cardiology as scheduled, cath scheduled for 08/28/22. 3. 30 minutes of exercise daily as tolerated being careful to monitor for cardiac symptoms. 4. Follow up with PCP as scheduled 5. Call with any questions or concerns Landen Goodman MD Thoracic Surgery documented in this encounter Plan of Treatment Upcoming Encounters Date Type Department Care Team (Late st Contact Info) Description 06/20/2024 10:00 AM EST Office Visit Hematology/Oncology at [address] [phone] Lia Barber APRN [address] [place] [address] DR H[place]AT[place]Y [place] [address] 06/20/2024 10:30 AM EST Infusion Hematology Oncology at [address] [phone] 07/04/2024 11:00 AM EST Office Visit Hematology/Oncology at [address] [phone] Lia Barber APRN [address] [place] [address] DR HEMATOLOGY AND ONCOLOGY [place], [place] [address] 07/04/2024 11:30 AM EST Infusion Hematology Oncology at [address] [phone] documented as of this encounter Visit Diagnoses Diagnosis Right lower lobe lung mass Swelling, mass, or lump in chest Recurrent pleural effusion on right Unspecified pleural effusion documented in this encounter Care Teams Log Grader Relationship Specialty Start Date End Date Kadi Lane PA [address] [place] [address] PCP - General Family Medicine 07/28/16 documented as of this encounter
--- OUTSIDE RECORDS SUMMARY | 2024-06-20 01:28 | XMS_ITS | Encounter Summary ---
[place] [address] Care Team Providers Care Tank Insulator Rubber Name Role Phone Kadi Lane Primary Care Provider [phone] Encounter Details Date Type Department Care Team (Late st Contact Info) Description 07/24/2022 Telephone [place] [phone] Landen Goodman MD [address] [place], [place] [phone] Social History Tobacco Use Types Packs/Day Years Used Date Smoking Tobacco: Former Cigarettes 2 32 1 176 - 9112 Smokeless Tobacco: Former Alcohol Use Standard Drinks/Week [...] 10:00 AM EST Office Visit Hematology/Oncology at [address] [phone] HEMATOLOGY AND ONCOLOGY [place], [place] [phone] 06/20/2024 10:30 AM EST Infusion Hematology Oncology at [address] [phone] 07/04/2024 11:00 AM EST Office Visit Hematology/Oncology at [address] [phone] HEMATOLOGY AND ONCOLOGY [place], [place] [phone] 07/04/2024 11:30 AM EST Infusion Hematology Oncology at [address] [phone] documented as of this encounter Visit Diagnoses Not on filedocumented in this encounter Care Teams Tank Insulator Rubber Relationship Specialty Start Date End Date Kadi Lane PA [address] [place] [address] PCP - General Family Medicine 07/28/16 documented as of this encounter
--- OUTSIDE RECORDS SUMMARY | 2024-06-20 01:28 | XMS_ITS | Encounter Summary ---
[place] [address] Care Team Providers Care Housemaid Name Role Phone Kadi Lane Primary Care Provider [phone] Encounter Details Date Type Department Care Team (Late st Contact Info) Description 07/28/2022 Multidisciplinary Ca re Committee [place] [phone] Chana Enciso APRN [facility] [place] [address] Social History Tobacco Use Types Packs/Day Years [...] as of this encounter Progress Notes * Chana Enciso APRN - 07/28/2022 8:29 AM EDT Thoracic - Tumor Board Note Date Presented: 07/28/2022 Presenting Provider: Chana Enciso APRN Diagnosis/Tumor Site: RLL squamous cell carcinoma Is this Metastatic Disease: No Synopsis of History/HPI: Marco Antonio Xiong is a 76 y.o. male with an FDG avid 4.3cm pleural based right lower lobe lung nodule and right pleural effusion that was found to be negative for malignancy after navigational bronchoscopy/EBUS and thoracentesis on 02/25/22 and completed an extended course of Azithromycin. Repeat CT scan showed unchanged size of the mass. S/p positive stress test and cardiology consult recommending cardiac cath with possible stent placement and need for DOAC. Repeat PET demonstrated increase in size of the mass to 5.3 cm. Now s/p RLL mass biopsy positive for squamous cell carcinoma, pleural fluid negative for malignancy. Right pigtail catheter placed at time of biopsy to facilitate drainage of the pleural effusion. Imaging: Brain MRI ordered, PET 07/02/22 Pathology/Histology: CT guided needle biopsy 07/21/22 Tissue: ??Lung, right lower lobe mass, biopsy Diagnosis: Squamous cell carcinoma Stage: IIB Squamous cell carcinoma (T3N0) Clinical Data (Exams, Labs, etc.): in e[facility] Molecular Pathology Results: Tumor Proportion Score (TPS): ? % Expression: 5% Interpretation Table: PD-L1 assay (22C3 pharmDX) for Keytruda Tumor Proportion Score (TPS): ?<1% ?PD-L1 Negative ?>=1% ? PD-L1 Expression Clinical Trial Availability: per Rad Onc Options Discussed: Rad Onc referral, Med Onc referral, follow up with cardiology for cardiac cath, possible surgical resection pending cardiac cath Recommendations: Rad Onc referral, Med Onc referral, follow up with cardiology for cardiac cath forpossible stent and need for DOAC, possible surgical resection pending cardiac cath DISCLAIMER: The patient was discussed and the tumor board made recommendations but it is ultimatelyup to the treatment provider(s) and the patient to determine the patient???s care. Chana Enciso APRN 07/28/2022 Thoracic Surgery [facility] documented in this encounter Plan of Treatment Upcoming Encounters Date Type Department Care Team (Late st Contact Info) Description 06/20/2024 10:00 AM EST Office Visit Hematology/Oncology at [address] [phone] Lia Barber APRN [address] [place] [address] DR HEMATOLOGY [place] [address] 06/20/2024 10:30 AM EST Infusion Hematology Oncology at [address] [phone] 07/04/2024 11:00 AM EST Office Visit Hematology/Oncology at [address] [phone] Lia Barber COMPONENT OVERHAUL OPERATOR [address] [place] [address] DR HEMATOLOGY AND ONCOLOGY [place], [place] [phone] 07/04/2024 11:30 AM EST Infusion Hematology Oncology at [address] [phone] documented as of this encounter Visit Diagnoses Not on filedocumented in this encounter Care Teams Housemaid Relationship Specialty Start Date End Date Kadi Lane PA [address] [place] [address] PCP - General Family Medicine 07/28/16 documented as of this encounter
--- OUTSIDE RECORDS SUMMARY | 2024-06-20 01:28 | XMS_ITS | Encounter Summary ---
Author Organization [facility] [place] [address] Care Team Providers Care Topographic Computator Name Role Phone Kadi Lane Primary Care Provider [phone] Reason for Visit * Consultation (Routine) - Closed Specialty Diagnoses / Procedures Referred By Jorge Luis t Referred To Contact Radiation Oncology Diagnoses Non-small cell cancer of right lung Landen Goodman MD [address] [place] [id number] Enrrique Tafoya MD [address] [place] [address] [place] [address] Referral ID Status Reason Start Date Expiration Date V isits Requested Visits Authorized [id number] Closed Consult, Test & Treat 07/23/2022 07/23/2023 1 1 Encounter Details Date Type Department Care Team (Late st Contact Info) Description 08/12/2022 11:00 AM EDT Office Visit Radiation Oncology at [address] [phone] Rafael Pope MD [facility] DR RADIATION [place] [address] Non-small cell lung cancer, unspecified laterality Social [...] slept in a half-way (including now)? No 08/12/2022 Sex and Gender Information Value Date Recorded Sex Assigned at Male 10/05/2023 6:23 PM EDT Gender Identity Male 10/05/2023 6:23 PM EDT Sexual Orientation Straight 10/05/2023 6: 23 PM EDT documented as of this encounter Last Filed Vital Signs Vital Sign Reading Time Taken Comments Blood Pressure 165/65 08/12/2022 10:47 AM EDT Pulse 56 08/12/2022 10:47 AM EDT Temperature 36.5 ??C (97.7 ??F) 08/12/2022 10:47 AM E DT Respiratory Rate 18 08/12/2022 10:47 AM EDT Oxygen Saturation 100% 08/12/2022 10:47 AM EDT Inhaled Oxygen Concentration - - Weight 65.4 kg (144 lb 3.2 oz) 08/12/2022 10:47 AM EDT Height - - Body Mass Index 23.62 07/21/2022 8:25 AM EST documented in this encounter Progress Notes * Rafael Pope MD - 08/12/2022 11:00 AM EDT Images from the original note were not included. 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 Details: Narrative History Marco Antonio Xiong is a 76 y.o. [...] underwent bronchoscopy and biopsy with Dr. Moseley. Staging & Therapy PET-CT (01/30/22): 1. ??4.3 cm FDG avid [...] Needle Aspiration, robotic and radial EBUS / fluoro guided TBNA, TBBx, BAL, therapeutic aspiration of secretions 02/23/22: -Findings: The trachea, bilateral mainstem bronchi, and the bilateral segmental bronchi were all visualized and no obvious endobronchial lesions were noted. The [employer] robotic system was then used for intra-procedure navigation to the RLL nodule. Under radial EBUS and fluoro control TBNA, TBBx andBAL were obtained. The robotic bronchoscope was removed and the EBUS scope inserted. EBUS confirmed the presence of an enlarged node at station 11R, there were no other joey stations with nodes >5mm. -Path: --Lung, right lower lobe (Navigation-guided tissue biopsy and touch imprint cytology): Respiratory epithelial cells and a minute fragment of bronchial/respiratory epithelial mucosa with focal chronicinflammation and denuded epithelium. No overtly cytologically malignant cells seen; the material might not be patient portal representative of the target lesion. --Lung: right [...] and blood. The material might not be patient portal representative of the target lesion. --Pleural fluid (thoracentesis): The sample consists almost entirely of abundant, amorphous/acellular material. No malignant cells are seen. CT Chest no contrast 02/23/22: 1. Stable pleural-based mass at the right lung base. 2. Stable moderate right pleural effusion with thick peripheral rind. 3. Stable calcified bilateral pleural plaques, consistent with asbestos related pleural disease. CT HN w/ contrast 02/25/22: 1. 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 This mass is not evident on the PET/CT from one month earlier. Differential diagnosis includes both trauma/hematoma and rapidly growing neoplasm PET-CT 07/02/22: 1. Interval increased size and metabolic activity of the RIGHT lower lobe mass. Findings favor primary pulmonary malignancy. 2. Hilar lymph nodes are unchanged, nonenlarged and symmetric. Although metastasis cannot be excluded, these findings favor a reactive process. 3. Unchanged right-sided pleural effusion. PFTs 07/02/22: DLCO 44%, FEV1 49% Lung biopsy and pleural drain placement 07/21/22: -Path: 1. Lung, ??right lower lobe mass, biopsy: Squamous cell carcinoma. Tumor Proportion Score (TPS): % Expression: 5% 2. Pleural fluid, right (thoracentesis): The specimen consists predominantly of debris, a few scattered degenerated cells, and mixed inflammatory cells. No overtly cytologically malignant cells seen. MRI Brain 08/10/22: DOMINGO Post Tx Other Concerns: Currently, he has the following symptoms: Symptom Description Intervention Pain Denies Dyspnea No dyspnea at rest, but with mild to moderate activity Cough Occasional Dysphagia No Issues Voice Changes Denies Nutrition / Weight Loss No issues Actively Smoking Not smoking Pack Years Started smoking at 16, quit in 1989. 2 ppd on average. Distance from [facility] [place] 1 hour Other No issues I have personally reviewed the imaging studies referenced above. Review of Systems: I reviewed and agree with the nursing review of systems accompanying this encounter. The remainder of the comprehensive review of systems was negative with the exception of the pertinent positives and negatives noted above. Medications and Allergies: Current Outpatient Medications: ??? magnesium oxide (Mag-Ox) 400 mg (241.3 mg magnesium) Tablet, Take 400 mg by mouth daily., Disp:, Rfl: ??? metoprolol succinate XL (Toprol-XL) 25 mg Tablet Sustained Release 24 hr, Take 0.5 tablets by mouth daily., Disp: 90 tablet, Rfl: 3 ??? atorvastatin (Lipitor) 40 mg Tablet, Take 1 tablet by mouth daily., Disp: 90 tablet, Rfl: 3 ??? nitroGLYcerin (Nitrostat) 0.4 mg Tablet, Sublingual, Place 1 tablet under the tongue every 5 minutes as needed for Chest pain., Disp: 30 tablet, Rfl: 3 ??? aspirin EC 81 mg Tablet, Delayed Release (E.C.), Take 81 mg by mouth daily., Disp: , Rfl: ??? omeprazole (PriLOSEC) 20 mg Capsule, Delayed Release(E.C.), Take 20 mg by mouth every morning.,Disp: , Rfl: ??? multivitamin (THERAGRAN) Tablet, Take 1 tablet by mouth daily., Disp: , Rfl: No Known Allergies Exam: Patient Vitals for the past 24 hrs: Temp Pulse Resp BP SpO2 08/12/22 1047 36.5 ??C (97.7 ??F) 56 18 165/65 100 % Physical Exam Constitutional: Appearance: He is [...] cranial nerve deficit. Psychiatric: Behavior: Behavior normal. Performance Status: KPS 70-80% ECOG 1 Restricted in physically strenuous activity but ambulatory and able to carry out work of a light or sedentary nature, e.g., light house work, office work Contraindications to Radiotherapy NO YES: Date, site, dose (women only) X Prior Radiotherapy X Collagen-Vascular dz X Summary/Recommendations: Cancer Staging: CT Chest PET-CT Pathologic Evaluation: mediastinal evaluation, CT-guided biopsy of primary PFTs MRI Brain Further Staging None Required Cancer Staging Non-small cell lung cancer Staging form: Lung, AJCC 8th Edition - Clinical: Stage IIA (cT2b, cN0, cM0) - Signed by Rafael Pope MD on 08/12/2022 Impression: Marco Antonio Xiong has been referred to discuss radiotherapy in his care. he has a Stage IIA NSCLC ofthe RLL, in the context of a pleural effusion that has been assessed twice with negative cytology. We discussed the relative risks and benefits of SBRT and surgical therapy in detail. His cardiac function was a barrier to surgery, and he is scheduled for a cardiac catheterization on 08/28. Pending cardiac evaluation he will be reassessed for surgical resection. His malignancy is adjacent to a moderate pleural effusion, and we discussed that if the effusion is fluctuating in size it may make reproducibility an issue with respect to SBRT. In that case we would likely recommended treatment on the [employer] LINAC so that real time adaptation would be possible. We discussed the rationale and logistics (including simulation, planning, and treatment) of definitive radiotherapy. We discussed the risks of therapy, including but not limited to short term sequelae (fatigue, esophagitis, skin erythema, cough) and retirement sequelae (radiation pneumonitis, the potential for increased dyspnea resulting in oxygen dependence, esophageal stricture, and the possibility of significant damage to soft tissue, bone or skin requiring surgical or medical intervention). Mr. Xiong expressed an understanding of these risks. The patient had a number of questions regarding optimal therapy and potential side effects. These questions were answered to his satisfaction. Plan: 1. Await decision regarding surgical resection 2. Supportive Care: Referrals Power Generating Plant Operator Thank you for allowing me to participate in the care of Marco Antonio Xiong. Rafael Pope MD, PhD [facility] Radiation oncology [phone] No orders of the defined types were placed in this encounter. The following information is automatically imported from [facility]. It has been reviewed, and pertinent information is noted above in HPI: PAST HISTORY Patient Active Problem List Diagnosis Date Noted ??? Non-small cell lung cancer 08/12/2022 ??? Pleural effusion 07/21/2022 ??? 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 Marital status: Spouse name: None ??? Number of children: None ??? Years of education: None ??? Highest education level: None Occupational History ??? None Tobacco Use ??? Smoking status: Former Packs/day: 2.00 Years: 32.00 Pack years: 64.00 Types: Cigarettes Start date: 1955 Quit date: 1986 Years since quittin.2 ??? Smokeless tobacco: Former Vaping Use ??? Vaping Use: Never used Substance and Sexual Activity ??? Alcohol use: Not Currently ??? Drug use: Never ??? Sexual activity: None Other Topics Concern ??? None Social History Narrative Lives with his in [place], [place] (2.5 hr). 3 kids, all grown [...] Unstable Housing in the Last Year: No Family History Problem Relation Age of Onset ??? Malignant Hyperthermia Mother ??? [facility] [place] ([facility] ??? [employer] Commission on Cancer (ACS Jorge) Accredited Cancer Program ??? [employer] (ACR) Accredited Radiation Oncology Program ??? * Linnette Croft RN - 08/12/2022 11:00 AM EDT RADIATION ONCOLOGY NURSING INITIAL NURSING ASSESSMENT Chief complaint: Lung CA ADVANCE DIRECTIVES: Will bring in PRESENTING SYSTEMS and PATHOLOGY: See MD Note REVIEW OF SYSTEMS: 08/12/2022 REVIEW OF SYSTEMS Constitutional None of the above Ear / nose / throat / mouth Hearing difficulty None of the above Eyes None of the above Respiratory None of the above Cardiovascular None of the above Musculoskeletal None of the above Neurological Headaches None of the above Hematologic / Lymphatic None of the above Genitourinary Frequent urination None of the above Multiple values from one day are sorted in reverse-chronological order Medical history: Past Medical History: Diagnosis Date ??? Chronic obstructive pulmonary disease ??? Gastroesophageal reflux disease ??? Lung nodule ??? Pulmonary asbestosis Surgical history: Past Surgical History: Procedure Laterality Date ??? CT GUIDED BIOPSY LUNG 07/21/2022 CT Guided Biopsy Lung 07/21/2022 Danny Barrios MD [facility] RAD CT SCAN ??? CT GUIDED DRAIN CHEST TUBE/PLEURAL DRAIN 07/21/2022 CT Guided Drain Chest Tube/Pleural Drain 07/21/2022 Danny Barrios MD [facility] RAD CT SCAN ??? PRO [facility] EBUS GUIDED SAMPL 1/2 NODE STATION/STRUX N/A 02/23/2022 BRONCH, W ENDOBRONCHIAL ULTRASOUND (EBUS) GUIDED SAMPLING, 1/2 NODES (WRVU 4.71) performed by Bipin Moseley MD at [facility] MAIN OR ??? [facility] DX/TX INTERVENTION PERPH LES N/A 02/23/2022 BRONCH, W EBUS DURING INTERVENTION FOR PERIPH LESION (WRVU 1.4) performed by Bipin Moseley MD at [facility] MAIN OR ??? PRO BRONCHOSCOPY RIGID FLEX W COMPUTER ASSIST IMG NAVIGATION N/A 02/23/2022 BRONCHOSCOPY,RIGID OR FLEX,WITH IMAGE GUIDANCE ( ROBOT / MONARCH ) performed by Bipin Moseley MD at [facility] MAIN OR ??? PRO BRONCHOSCOPY, DIAGNOSTIC W LAVAGE N/A 02/23/2022 BRONCHOSCOPY, RIGID OR FLEXIBLE, WITH BRONCHIAL ALVEOLAR LAVAGE (WRVU 2.88) performed by Bipin Moseley MD at [facility] MAIN OR ??? PRO BRONCHOSCOPY, TRANSBRON ASPIR BX N/A 02/23/2022 BRONCHOSCOPY W/TRANSBRONCHIAL NEEDLE ASPIRATION BX,FLEXIBLE (WRVU 4) performed by Bipin Moseley MD at [facility] MAIN OR ??? PRO BRONCHOSCOPY, TRANSBRONCH BIOPSY N/A 02/23/2022 BRONCHOSCOPY (FLEXIBLE OR RIGID) W\TRANSBRONC BX (WRVU 3.8) performed by Bipin Recinos MDat [facility] MAIN OR ??? PRO BRONCHOSCOPY, TREAT ASPIR PULM TREE N/A 02/23/2022 BRONCHOSCOPY, W/THERAPEUTIC ASPIRATION OF TRACHEOBRONCHIAL TREE (WRVU 3.16) performed by Bipin Moseley MD at [facility] MAIN OR ??? PRO LARYNGOSCOPY, DIRECT DIAGNOSTIC N/A 02/26/2022 LARYNGOSCOPY, DIRECT, DIAGNOSIS, EXCEPT (WRVU 2.63) performed by Charlie Marte MD [facility] MAIN OR ??? PRO THORACENTESIS NEEDLE/CATH PLEURA W IMAGING N/A 02/23/2022 THORACENTESIS, NEEDLE OR CATHETER; WITH IMAGE GUIDANCE (WRVU 2.27) performed by Bipin Moseley MD at [facility] MAIN OR Social History: Social History Socioeconomic History ??? [...] Social History Narrative Lives with his in [place], [place] (2.5 hr). 3 kids, all grown [...] Unstable Housing in the Last Year: No Family History of cancer: Family History Problem Relation Age of Onset ??? Malignant Hyperthermia Mother Prior Radiotherapy: No Prior Chemotherapy: No Prior hormone treatment/medications: No RADIATION SPECIFIC REVIEW: NO: YES: Claustrophobia or requires sedation for MRIs x Allergy to CT or MRI contrast agent or iodine or shellfish x Diabetic and on metformin x Metal in body, implanted device, worked with metal, body piercings,braces x hearing device x Dentures Upper Pacemaker x Difficulty breathing while lying flat x H/O Sclera derma x Currently n/a Active lupus x Kidney problems/creatinine x Balance difficulty: No At risk for fall: No ADL: No limits Assistive device: None PAIN ASSESSMENT: 0 out of 10 SOCIAL ASSESSMENT: See EDH social assessment information entered. Support Systems: , kids but not locally ([place], [place], [place], [place]) transportation plan: private vehicle Barriers to treatment: Hard of hearing, language could be barrier. Referrals/Interventions: Social work, per NPW protocol TEACHING: LEARNING STYLE: [ x ] Visual [ x ] verbal [ x ] wants written material and verbal discussion. Language barriers: [ ] no [ x ] yes - primary language is Sami jordanian, understands Sudanese, declines translator interpreter [ x ] see learning needs assessment Answers for HPI/ROS submitted by the patient on 08/12/2022 Distress: 0 documented in this encounter Plan of Treatment Upcoming Encounters Date Type Department Care Team (Late st Contact Info) Description 06/20/2024 10:00 AM EST Office Visit Hematology/Oncology at [address] [phone] HEMATOLOGY AND ONCOLOGY [place], [place] [phone] 06/20/2024 10:30 AM EST Infusion Hematology Oncology at [address] [phone] 07/04/2024 11:00 AM EST Office Visit Hematology/Oncology at [address] [phone] HEMATOLOGY AND ONCOLOGY [place], [place] [phone] 07/04/2024 11:30 AM EST Infusion Hematology Oncology at [address] [phone] Scheduled Referrals Name Type Priority Associated Diagnoses Orde r Schedule Referral to Radiation Oncology Outpatient Referral Routine Non-small cell cancer of right lung Ordered: 07/23/2022 documented as of this encounter Visit Diagnoses Diagnosis Non-small cell lung cancer, unspecified laterality documented in this encounter Care Teams Topographic Computator Relationship Specialty Start Date End Date Kadi Lane PA [address] [place] [address] PCP - General Family Medicine 07/28/16 documented as of this encounter
--- OUTSIDE RECORDS SUMMARY | 2024-06-20 01:28 | XMS_ITS | Encounter Summary ---
[place] [address] Care Team Providers Care Knitting Machine Fixer Head Name Role Phone Kadi Lane Primary Care Provider [phone] Encounter Details Date Type Department Care Team (Late st Contact Info) Description 07/24/2022 Telephone [place] [address] Mary Douglas, RN Social History Tobacco Use Types Packs/Day Years Used Date Smoking Tobacco: Former Cigarettes 2 32 1 486 - 1987 Smokeless Tobacco: Former Alcohol Use [...] Telephone Encounter - Mary Douglas RN - 07/24/2022 1:33 PM EST Patient is S/P IR CT guided right pigtail placement 07/21/2022, discharged 07/23/2022. Phone call to Marco Antonio to check in. He is doing fine, no issues to report and he is happy to be home. Referrals to Oncology have been placed and we will call them to schedule a brain MRI. They have asked that I check in with cardiology now that they have a diagnosis. They are aware to call with any questions. documented in this encounter Plan of Treatment Upcoming Encounters Date Type Department Care Team (Late st Contact Info) Description 06/20/2024 10:00 AM EST Office Visit Hematology/Oncology at [address] [phone] HEMATOLOGY [place] [address] 06/20/2024 10:30 AM EST Infusion Hematology Oncology at [address] [phone] 07/04/2024 11:00 AM EST Office Visit Hematology/Oncology at [address] [phone] HEMATOLOGY [place] [address] 07/04/2024 11:30 AM EST Infusion Hematology Oncology at [address] [phone] documented as of this encounter Visit Diagnoses Not on filedocumented in this encounter Care Teams Knitting Machine Fixer Head Relationship Specialty Start Date End Date Kadi Lane PA [address] [place] [address] PCP - General Family Medicine 07/28/16 documented as of this encounter
--- OUTSIDE RECORDS SUMMARY | 2024-06-20 01:28 | XMS_ITS | Encounter Summary ---
Author Organization [facility] [place] [address] Care Team Providers Care Lawn Care Worker Name Role Phone Kadi Lane Primary Care Provider [phone] Encounter Details Date Type Department Care Team (Latest Contact Info) Description 07/21/2022 Travel Social History Tobacco Use Types Packs/Day [...] AM EST Office Visit Hematology/Oncology at [address] [phone] Lia Barber APRN [address] [place] [address] DR HEMATOLOGY AND ONCOLOGY [place], [place] [address] 06/20/2024 10:30 AM EST Infusion Hematology Oncology at [address] [phone] 07/04/2024 11:00 AM EST Office Visit Hematology/Oncology at [address] [phone] Lia Barber APRN [address] [place] [place] [address] DR HEMATOLOGY AND ONCOLOGY [place], [place] [phone] 07/04/2024 11:30 AM EST Infusion Hematology Oncology at [address] [phone] documented as of this encounter Visit Diagnoses Not on filedocumented in this encounter Care Teams Lawn Care Worker Relationship Specialty Start Date End Date Kadi Lane PA [address] [place] [address] PCP - General Family Medicine 07/28/16 documented as of this encounter
--- OUTSIDE RECORDS SUMMARY | 2024-06-20 01:28 | XMS_ITS | Encounter Summary ---
Author Organization [place] [address] Care Team Providers Care Water Taxi Captain Name Role Phone Kadi Lane Primary Care Provider Encounter Details Date Type Department Care Team (Late st Contact Info) Description 07/27/2022 Orders Only Hematology [place] [phone] Karla Scott, PROFESSOR OF [facility] [place]AT[place]Y [place] [address] Squamous cell carcinoma of right lung Social History Tobacco Use [...] AM EST Office Visit Hematology/Oncology at [address] [phone] [address] HEMATOLOGY AND [place]OGY [place], [place] [address] 06/20/2024 10:30 AM EST Infusion Hematology Oncology at [address] [phone] 07/04/2024 11:00 AM EST Office Visit Hematology/Oncology at [address] [phone] HEMATOLOGY AND ONCOLOGY [place], [place] [phone] 07/04/2024 11:30 AM EST Infusion Hematology Oncology at [address] [phone] documented as of this encounter Visit Diagnoses Diagnosis Squamous cell carcinoma of right lung documented in this encounter Care Teams Water Taxi Captain Relationship Specialty Start Date End Date Kadi Lane PA [address] [place] [address] PCP - General Family Medicine 07/28/16 documented as of this encounter
--- OUTSIDE RECORDS SUMMARY | 2024-06-20 01:28 | XMS_ITS | Encounter Summary ---
[place] [address] Care Team Providers Care Education Specialist Name Role Phone Kadi Lane Primary Care Provider [phone] Encounter Details Date Type Department Care Team (Late st Contact Info) Description 07/16/2022 Telephone Hematology [place] [address] Aleksandra Barcenas MSW Social History Tobacco Use Types Packs/Day Years [...] encounter Miscellaneous Notes * Telephone Encounter - Aleksandra Barcenas MSW - 07/16/2022 12:56 PM EST Continuing Banking And Finance Instructor-Social Work Note [facility]/Office of Care Management Referral/Contact: Marco Antonio is a 76 yo man who is schedule for biopsy of lung mass on 07/21/22. He was referred to by Ari Urena, Thoracic Surgery, for support with transportation/lodging, as he and his have a very long drive to get to [facility] from their home and pt's , who is the national dedicated truck driver, expressed concern about driving in bad weather. Spoke with pt's , Bhavna, by phone. We reviewed the forecast together. She states she is very comfortable driving in most weather, but it's just the really wet, heavy snow that she feels uncomfortable in. With the forecast as currently predicted, she feels confident that they will have no problem getting her on the . We discussed the option of coming in on the and SW arranging hotel lodging for that night, but Bhavna felt this was unnecessary. Advisedher that if she becomes concerned about driving/the forecast, she can just contact me and I can make lodging arrangements for them. Intervention(s): Brief assessment Lodging Plan: SW remains available for psychosocial assessment, support, and resource coordination as needed. REM[employer]IOS Anand Pager: [phone] documented in this encounter Plan of Treatment Upcoming Encounters Date Type Department Care Team (Late st Contact Info) Description 06/20/2024 10:00 AM EST Office Visit Hematology/Oncology at [address] [phone] [place] [address] 06/20/2024 10:30 AM EST Infusion Hematology Oncology at [address] [phone] 07/04/2024 11:00 AM EST Office Visit Hematology/Oncology at [address] [phone] [address] [place] [address] 07/04/2024 11:30 AM EST Infusion Hematology Oncology at [address] [phone] documented as of this encounter Visit Diagnoses Not on filedocumented in this encounter Care Teams Education Specialist Relationship Specialty Start Date End Date Kadi Lane PA [address] [place] [address] PCP - General Family Medicine 07/28/16 documented as of this encounter
--- OUTSIDE RECORDS SUMMARY | 2024-06-20 01:28 | XMS_ITS | Encounter Summary ---
[place] [address] Care Team Providers Care Grid Inspector Name Role Phone Kadi Lane Primary Care Provider [phone] Encounter Details Date Type Department Care Team (Late st Contact Info) Description 08/04/2022 Telephone [place] [address] Jesi Prater RN Social History [...] Telephone Encounter - Jesi Prater RN - 08/04/2022 12:51 PM EDT Return phone call to patient's daughter, Janell. She reports that patient is supposed to be having [facility] brain and cardiac cath but states these appointments have not been scheduled yet. I informed her that I have been in contact with cardiology about scheduling the cardiac cath and that I will follow up with them again today. I will have a master scheduler call patient's to schedule MRI brain. Janell is appreciative and will call with any further questions. ----- Message from Janell Hobbs sent at 08/04/2022 12:38 PM EDT ----- Caller name: Janell Keating- daughter Call back number: [phone] Reason for call: Janell states she is waiting for a return call from Dr Goodman office to discuss patient. Please advise. documented in this encounter Plan of Treatment Upcoming Encounters Date Type Department Care Team (Late st Contact Info) Description 06/20/2024 10:00 AM EST Office Visit Hematology/Oncology at [address] [phone] [address] HEMATOLOGY [place] [address] 06/20/2024 10:30 AM EST Infusion Hematology Oncology at [address] [phone] 07/04/2024 11:00 AM EST Office Visit Hematology/Oncology at [address] [phone] [address] HEMATOLOGY [place] [address] 07/04/2024 11:30 AM EST Infusion Hematology Oncology at [address] [phone] documented as of this encounter Visit Diagnoses Not on filedocumented in this encounter Care Teams Grid Inspector Relationship Specialty Start Date End Date Kadi Lane PA [address] [place] [address] PCP - General Family Medicine 07/28/16 documented as of this encounter
--- OUTSIDE RECORDS SUMMARY | 2024-06-20 01:29 | XMS_ITS | Encounter Summary ---
Author Organization [facility] [place] [address] Care Team Providers Care Lead Relay Tester Name Role Phone Kadi Lane Primary Care Provider [phone] Reason for Visit * Reason Comments Follow Up Surgery Everything is going good Encounter Details Date Type Department Care Team (Latest Contact Info) Description 04/16/2022 11:30 AM EST Office [place] [address] Morgan Black PA [facility] [place] [address] Hypopharyngeal lesion Social History Tobacco Use Types Packs/Day Years Used Date Smoking Tobacco: Former Cigarettes Q uit: 1986 Smokeless Tobacco: Former Tobacco Cessation:Counseling Given: Not [...] Taken Comments Blood Pressure - - Pulse - - Temperature - - Respiratory Rate - - Oxygen Saturation - - Inhaled Oxygen Concentration - - Weight 64.6 kg (142 lb 8 oz) 04/16/2022 11:29 AM EST Height 167.6 cm (5' 6) 04/16/2022 11:29 AM EST Body Mass Index 23 04/16/2022 11:29 AM EST documented in this encounter Progress Notes * Morgan Black PA - 04/16/2022 11:30 AM EST [facility] OTOLARYNGOLOGY FOLLOW UP NOTE Marco Antonio Xiong is a 76 y.o. male followed for:Left piriform sinus Marco Antonio Xiong is a 76 y.o. 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 He had blood tinged secretions and significant odynophagia postoperatively and presented to [facility] with FTT. CT (wo contrast) demonstrated LEFT hypopharyngeal mass and bedside flexible laryngoscopy confirmed exophytic appearing, fungating mass along the posterior pharyngeal wall extending towards the pyriform sinus with surrounding ecchymosis and hematoma. He was brought to the OR for direct laryngoscopy with biopsy to rule out malignant lesion vs trauma from the recent bronchoscopy on 02/26/22. Findings at the time of surgery as follows: 1. Grade 1 view of the vocal cords. 2. Significant edema of LEFT posterior pharyngeal wall extending to LEFT pyriform sinus down to thetrue cord and ventricle 3. There is an area of ulcerative, necrotic appearing mucosa on the LEFT posterior pharyngeal wall which extends towards the LEFT pyriform sinus concerning for malignancy vs eschar in the setting of recent trauma from bronchoscopy/intubation 02/22. Pathology indicates the following: DIAGNOSIS LEFT pyriform sinus lesions, biopsy: Fragments of squamous mucosa and soft tissue with ulceration, necrotic debris, acute ??suppurative inflammation and bacterial overgrowth; no evidence of malignancy. New issues since last visit: No pain. Swallowing well. Eating normal diet. No odynophagia. No difficulty with breathing. No hemoptysis. No swelling in the neck. PROBLEM LIST Patient Active Problem List Diagnosis Code ??? 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 SOCIAL HISTORY Social History Tobacco Use ??? Smoking status: Former Types: Cigarettes Quit date: 1986 Years since quittin.9 ??? Smokeless tobacco: Former Substance Use Topics ??? Alcohol use: Not Currently MEDICATIONS Current Outpatient Medications on File Prior to Visit Medication Sig Dispense Refill ??? azithromycin (Zithromax) 250 mg Tablet Take 1 tablet by mouth daily. Day1:take 2 tablets daily,Day 2-5:Take one tablet daily 6 tablet 0 ??? acetaminophen (Tylenol) 650 mg/20.3 mL Solution Take 20.3 mLs by mouth every 6 hours. 500 mL 2 ??? ibuprofen (Motrin) 400 mg Tablet Take 1 tablet by mouth every 6 hours as needed for Pain. 30 tablet 12 ??? multivitamin (THERAGRAN) Tablet Take 1 tablet by mouth daily. ??? aspirin EC 81 mg Tablet, Delayed Release (E.C.) Take 81 mg by mouth daily. ??? omeprazole (PriLOSEC) 20 mg Capsule, Delayed Release(E.C.) Take 20 mg by mouth every morning. No current facility-administered medications on file prior to visit. ALLERGIES No Known Allergies ROS 8 point Review of Systems was normal except for pertinent positives and negatives included in the History of Present Illness. PHYSICAL EXAMINATION Physical Examination: VITALS - Height 167.6 cm (5' 6), weight 64.6 kg (142 lb 8 oz). GENERAL - Well dressed and well nourished. - Breathing comfortably without stridor. - No acute distress. FACE - Full and symmetric facial movement. - No dysmorphic facial features. EYES - Periocular structures and conjunctiva healthy without lesions. - Pupils are equal, round, and reactive to light. - Extraocular movement is full and intact. - No evidence of nystagmus. MOUTH - Lips and gingiva pink, moist, without lesions. - Edentulous superiorly, with prosthesis in place, not removed. - Tongue and floor of mouth soft without lesions or masses. - Hard palate without lesions. PHARYNX - Soft palate without lesions. - Uvula is midline. - Oropharynx symmetric. NECK - Soft, supple, without significant lymphadenopathy. - Thyroid gland without masses or asymmetry. - Trachea midline without deviation. NEURO - Cranial nerves II-XII intact and symmetric. - Responds appropriately to questions. PSYCHE - Normal mood and affect. PROCEDURES Procedure: Flexible Laryngoscopy: Indications: Evaluation for mucosal lesion of the upper airway. The risks of the procedure were reviewed, and verbal consent was obtained. Topical anesthetic and decongestant applied to the nasal cavity. The scope was passed through the nasal cavity, through the nasopharynx, and into the oropharynx. The examination was recorded on the [employer] Unit and uploadedto the [employer] P[employer]. Patient tolerated the procedure well without any complications. Nasal Cavity: Normal appearing mucosa. No obstructions or lesions noted. Nasopharynx: No lesions or masses noted. Oropharynx: Base of tongue/vallecula symmetric with normal appearing lingual tonsillar tissue. No masses, ulcerations or mucosal lesions noted. Larynx: Epiglottis is thin and non-edematous. Arytenoids are symmetric. True cords demonstrate full and symmetric motion. Hypopharynx: Piriform sinuses are clear bilaterally, without evidence of masses or lesions. No significant pooling of secretions was noted. No overt laryngeal penetration or aspiration. REVIEW OF IMAGES/STUDIES ASSESSMENT/RECOMMENDATIONS Marco Antonio Xiong is a 76 y.o. male with [id number] history and clinical exam findings. - Discussed that his pathology results were benign, and today's scope shows a well-healed posteriorpharyngeal wall, with no abnormality appreciated. Discussed that, as such, no further follow up wasindicated, but that he should call us if he notes any return of his pain, if he notes any dysphagia, or any other new concerning symptom. - The patient expressed understanding of these points and agreement with the plan, and all questions that were asked were answered to the patient's satisfaction. Plan: > Patient should call if new concerning symptoms arise, or if they have any questions or concerns regarding their treatment. I appreciate the opportunity to be involved in Mr. Xiong's care. Morgan Black PA-C [place], [place] [phone] Office 04/16/2022 documented in this encounter Plan of Treatment Upcoming Encounters Date Type Department Care Team (Late st Contact Info) Description 06/20/2024 10:00 AM EST Office Visit Hematology/Oncology at [address] [phone] HEMATOLOGY AND ONCOLOGY [place], [place] [phone] 06/20/2024 10:30 AM EST Infusion Hematology Oncology at [address] [phone] 07/04/2024 11:00 AM EST Office Visit Hematology/Oncology at [address] [phone] HEMATOLOGY AND ONCOLOGY [place], [place] [phone] 07/04/2024 11:30 AM EST Infusion Hematology Oncology at [address] [phone] documented as of this encounter Visit Diagnoses Diagnosis Hypopharyngeal lesion documented in this encounter Care Teams Lead Relay Tester Relationship Specialty Start Date End Date Kadi Lane PA [address] [place] [address] PCP - General Family Medicine 07/28/16 documented as of this encounter
--- OUTSIDE RECORDS SUMMARY | 2024-06-20 01:29 | XMS_ITS | Encounter Summary ---
Author Organization [facility] Address [facility] [place] [address] Care Team Providers Care Carbon Dioxide Operator Name Role Phone Kadi Lane Primary Care Provider [phone] Encounter Details Date Type Department Care Team (Late st Contact Info) Description 02/26/2022 Interpretation Only Radiology [address] [place] [phone] Unknown None Social History Tobacco Use Types Packs/Day Years Used Date Smoking Tobacco: Former Cigarettes Q uit: 1986 Smokeless Tobacco: Former Alcohol Use Standard [...] AM EST Office Visit Hematology/Oncology at [address] [phone] Lia Barber APRN [address] [place] [address] DR HEMATOLOGY AND ONCOLOGY [place], [place] [phone] 06/20/2024 10:30 AM EST Infusion Hematology Oncology at [address] [phone] 07/04/2024 11:00 AM EST Office Visit Hematology/Oncology at [address] [phone] Lia Barber APRN [address] [place] [address] DR HEMATOLOGY AND ONCOLOGY [place], [place] [phone] 07/04/2024 11:30 AM EST Infusion Hematology Oncology at [address] [phone] documented as of this encounter Procedures Procedure Name Priority Date/Time Associated Diagnosis Comments DH OR ENDOSCOPY Routine 02/26/2022 documented in this encounter Results * DH OR Endoscopy (02/26/2022) Anatomical Region Laterality Modality Other 02/26/2022 Narrative 02/26/2022 12:00 AM EDT Photographs - Images Procedure Note Unknown - 02/26/2022 Photographs - Images Unknown EA IMAGES documented in this encounter Visit Diagnoses Not on filedocumented in this encounter Care Teams Carbon Dioxide Operator Relationship Specialty Start Date End Date Kadi Lane PA [address] [place] [address] PCP - General Family Medicine 07/28/16 documented as of this encounter
--- OUTSIDE RECORDS SUMMARY | 2024-06-20 01:29 | XMS_ITS | Encounter Summary ---
[place] [address] Care Team Providers Care Analytical Data Scientist Name Role Phone Kadi Lane Primary Care Provider [phone] Encounter Details Date Type Department Care Team (Latest Contact Info) Description 06/23/2022 Multidisciplinary Ca re Committee [place] [phone] Landen Goodman MD [address] [place] [id number] Social History Tobacco Use Types Packs/Day Years [...] Progress Notes * Landen Goodman MD - 06/23/2022 11:59 PM EST Subject: CTOP Thoracic - Tumor Board Note Date Presented: 06/23/2022 Presenting Physician: Landen Goodman Diagnosis/Tumor Site: Right lower lobe Is this Metastatic Disease: NA Synopsis of History/HPI: 76 y.o. male with an FDG avid 4.3cm pleural based right lower lobe lung nodule and right pleural effusion that was found to be negative for malignancy after navigational bronchoscopy/EBUS and thoracentesis on 02/25/22 and has now completed an extended course of Azithromycin. Repeat CT scan shows unchanged size of the mass Imaging: CT Pathology/Histology: NA Stage: NA Options Discussed: repeat biopsy versus surgery vs. continued observation Recommendations: Pleural biopsy, core biopsy and cultures documented in this encounter Plan of Treatment Upcoming Encounters Date Type Department Care Team (Late st Contact Info) Description 06/20/2024 10:00 AM EST Office Visit Hematology/Oncology at [address] [phone] [address] [place] [address] 06/20/2024 10:30 AM EST Infusion Hematology Oncology at [address] [phone] 07/04/2024 11:00 AM EST Office Visit Hematology/Oncology at [address] [phone] [facility] [place] [address] 07/04/2024 11:30 AM EST Infusion Hematology Oncology at [address] [phone] documented as of this encounter Visit Diagnoses Not on filedocumented in this encounter Care Teams Analytical Data Scientist Relationship Specialty Start Date End Date Kadi Lane PA [address] [place] [address] PCP - General Family Medicine 07/28/16 documented as of this encounter
--- OUTSIDE RECORDS SUMMARY | 2024-06-20 01:29 | XMS_ITS | Encounter Summary ---
[place] [address] Care Team Providers Care Slope Runner Name Role Phone Kadi Lane Primary Care Provider [phone] Reason for Visit * Reason Comments Hospital Transfer Shortness of Breath * Auth/Cert Specialty Diagnoses / Procedures Referred By Contac t Referred To Contact Diagnoses Hypopharyngeal mass Post Op Tracial Obstruction Charlie Marte MD [facility] [place] [address] [facility] Referral ID Status Reason Start Date Expiration Date Visits Re quested Visits Authorized [id number] 1 1 Encounter Details Date Type Department Care Team (Late st Contact Info) Description 02/26/2022 12:00 PM EDT - 02/26/2022 1:43 PM EDT Surgery [place] [id number] Charlie Marte MD [facility] [place] [address] LARYNGOSCOPY, DIRECT, DIAGNOSIS, EXCEPT (WRVU 2.63) Social History Tobacco Use Types Packs/Day Years [...] Sign Reading Time Taken Comments Blood Pressure 141/64 02/26/2022 11:53 AM EDT Pulse 59 02/26/2022 11:53 AM EDT Temperature 36.7 ??C (98.1 ??F) 02/26/2022 11:18 AM E DT Respiratory Rate 22 02/26/2022 11:53 AM EDT Oxygen Saturation 97% 02/26/2022 11:53 AM EDT Inhaled Oxygen Concentration - - Weight 58 kg (127 lb 12.8 oz) 02/26/2022 2:13 AM EDT Height 170.2 cm (5' 7) 02/26/2022 2:13 AM EDT Body Mass Index 20.02 02/26/2022 2:13 AM EDT documented in this encounter Discharge Summaries * Alexy Jaramillo MD - 02/27/2022 7:18 AM EDT OTOLARYNGOLOGY - HEAD & NECK SURGERY DISCHARGE SUMMARY General Info Patient Name: Marco Antonio Xiong Patient Age: 76 y.o. 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 History obtained through patient interview, review of relevant records, and/or discussion with referring provider. ?? Marco Antonio Xiong is a 76 y.o. 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 ?? Symptoms all started after his procedure. Left jaw pain, localizes to angle of mandible, and left otalgia. Pain with chewing and swallowing. Dysphagia to solids and liquids. Has been able to take in small amounts of foods and liquids only. Liquids have gone up into his nose a couple of times. Changes in voice. Hemoptysis on Wednesday and Wednesday, not so much today. Presented to the ED at [place]. As he had changes in his breathing there, they put him on oxygen. No trismus. No numbness. No swelling or lumps in the neck. No significant ETOH history. No difficulty with breathing, unless exerting himself. Reason for Admission: Post-operative observation and trial of oral intake Hospital Course: The patient was admitted in anticipation of DL for further visualization of the mass. He tolerated the procedure well and biopsies were collected under direct visualization. The patient was admitted post-operatively for pain control and trial of PO. His pain was well controlled and he was tolerating oral intake by POD1. His hospital course was uncomplicated and he was deemed medically stable for discharge home at 1 Day Post-Op. Prior to discharge his pain was controlled on oral pain meds and he was tolerating a Regular diet. During his hospitalization, PT/OT and Speech were consulted. Physical Exam on Discharge: General: NAD, non-ill appearing Face: Symmetric without dysmorphic features Eyes: EOMI, conjunctiva healthy Ears: Auricles symmetric, no lesions Nose: Patent nares, grossly normal appearance Oral Cavity/Pharynx: Mucosa is pink, oropharynx symmetric Neck: Soft, trachea midline Chest: Non-labored breathing, regular rate Abdomen: Soft, non-tender Neuro: Alert & oriented, moving extremities x 4 Lab Data: Recent Labs 02/26/22205002/26/22 0444 WBC 7.7 7.8 HGB 11.5* 11.8* HCT 33.3* 33.8* PLATELET 294 256 NA 142 140 K 4.4 4.4 CL 106 103 CO2 25 27 BUN 32* 27* CREATININE 0.96 0.80 GLUCOSE 167 148 CALCIUM 8.8 9.1 MAGNESIUM 0.82 0.83 PHOS 2.7 3.6 Imaging and Other Studies: CT Chest wo Contrast (Generic) Result Date: 02/23/2022 EXAMINATION: CT CHEST WO CONTRAST (GENERIC) CLINICAL HISTORY: Lung nodule, > 8mm [place] roboticassisted bronchoscopy protocol CT chest TECHNIQUE: CT of the chest without contrast. Coronal and sagittal reformatted images were generated. COMPARISON: PET/CT 01/30/2022 FINDINGS: Limitations: Lack of intravenous contrast limits evaluation of the visceral organs, mediastinum, and vascular structures. Manager Program Images: Noncontributory. Pulmonary parenchyma: 4.2 cm pleural-based mass at the right lung base as seen on previous PET/CT. Small calcified granuloma in the right upper lobe. Airways: The large airways are patent. Pleura: Moderate right pleural effusion with a peripheral rind. Diffuse calcified pleural plaques bilaterally. No pleural effusion on the left. No pneumothorax bilaterally. Lymph nodes, mediastinum and francy: No mass or lymphadenopathy. Known FDG avid hilar adenopathy not well visualized on noncontrast CT. Small hiatal hernia. Heart, pericardium, and great vessels: Normal cardiac size. No pericardial effusion. No thoracic aortic aneurysm. Coronary artery and aortic calcifications.. Lower neck: Unremarkable thyroid gland. No visible cervical lymphadenopathy. Upper abdomen:No significant findings. Body wall soft tissues: Normal. Skeletal structures: No suspicious lesions. 1. Stable pleural-based mass at the right lung base. 2. Stable moderate right pleural effusion withthick peripheral rind. 3. Stable calcified bilateral pleural plaques, consistent with asbestos related pleural disease. I have personally reviewed the image(s) and the resident's interpretation and agree with the findings, Bipin Christensen DO at 02/23/2022 9:07 AM Thank you for letting us participate in the care of this patient. If you are a health care provider and have any questions regarding thisreport, please contact the number below. For patients who have questions please contact the health care analyst that requested your imaging first. Electronically signed by: Bipin Christensen DO, [facility] ([phone]), at 02/23/2022 9:07 AM [facility] PET CT Skull Base to Mid-thigh Result Date: 01/30/2022 EXAMINATION: [facility] PET CT SKULL BASE TO MID-THIGH CLINICAL HISTORY: Presence of underlying mass on CT Chest not excluded; mild ileocecal wall thickening and sclerotic hip bone; ? Paget's disease; asbestos related chest disease, abnormal weight loss TECHNIQUE: Following IV injection of 18-fluo [id number]-8-[id number] (FDG) a standard uptake of approximately 60 minutes, a noncontrast CT scan followed by a PET scan were acquired from the base of the skull to mid thighs. The noncontrast CT was usedfor anatomic localization and photon attenuation correction of the PET scan. Blood glucose level: 80 (mg/dL) FDG dose: 10.64 mCi COMPARISON: CT chest dated 03/01/2018 PET/CT dated 08/21/2016 FINDINGS: HEAD/NECK: Normal activity in all soft tissue regions of the neck and visualized lower head. Partially visualized area of encephalomalacia in the right temporoparietal region, consistent with prior infarct. No adenopathy. CHEST: 4.3 x 3 cm FDG avid pleural-based mass in the posterior right lower lobe within an area of consolidated/atelectatic lung (centered on axial image 119). This lesion was notpresent on remote PET/CT dated 08/21/2016. Non-FDG avid bilateral calcified pleural plaques, stable to modestly increased in size from prior PET CT dated 08/21/2016. Moderate size non-FDG avid right pleural effusion, unchanged from prior PET/CT dated 08/21/2016. Small FDG avid right hilar adenopathy (axial image 98). Small FDG avid lymph node in the left hilum is favored to represent a benign reactive node. Small area of scarring in the posterior left lung base, unchanged compared to prior study of 2017. Coronary and aortic calcifications. Small-moderate size hiatal hernia. ABDOMEN/PELVIS: Normal activity in all soft tissue regions. No adenopathy. Aortoiliac calcifications. SKELETON/EXTREMITIES: Mildly FDG avid heterogeneous sclerotic changes and diffuse cortical thickening in the left hemipelvis, sparing the sacrum, unchanged from prior PET/CT dated 08/21/2016 and consistent with Paget's disease. Normal activity all other regions of the axial and visualized proximal appendicular skeleton. 1. 4.3 cm FDG avid pleural-based mass in the posterior right lower lobe, highly suspicious for primary lung malignancy. 2. Small FDG avid right hilar adenopathy, suspicious for joey metastasis. 3. Non-FDG avid moderate-sized right pleural effusion, unchanged compared to remote PET/CT of 08/21/2016. 4. Small FDG avid left hilar lymph node is unchanged compared to remote PET/CT of 08/21/2016 and favored to represent a benign reactive node. 5. No distant sites of metastasis. 6. Mildly FDG avid sclerotic changes and diffuse cortical thickening in the left hemipelvis, sparing the sacrum, unchanged from PET/CT of 08/21/2016 and consistent with Paget's disease. 7. Partially visualized area of encephalom alacia in the right temporoparietal region, consistent with prior infarct. I have personally reviewed the image(s) and the resident's interpretation and agree with the findings, Neel Foster MD at 01/30/2022 4:55 PM Thank you for letting us participate in the care of this patient. If you are a health care provider and have any questions regarding this report, please contact the number below. For patients who have questions please contact the health care analyst that requested your imaging first. Electronically signed by: Neel Foster MD, [facility] ([phone]), at 24:55 PM XR Fluoro No Rad <1Hr - OR Use Result Date: 02/23/2022 This exam is auto-finalizing. No interpretation was done. XR Chest PA & Lateral (Generic) Result Date: 02/25/2022 EXAMINATION: XR CHEST PA AND LATERAL (GENERIC) CLINICAL HISTORY: known hydropneuno, on 4L, asses for interval exapnsion TECHNIQUE: PA and lateral views of the chest COMPARISON: CT 02/25/2022, plain radiographs 02/23/2022 FINDINGS: This is a stable interval examination. Plaquing and nodularity at the right base and right lateral chest wall, similar degree of plaquing at the left lateral chest wall. Relative hyperexpansion of the left lung versus the right. There is a persistent right-sided pleural effusion, similar to the prior study. There is no evident pneumothorax on this examination. Cardiac and mediastinal contours unchanged and within normal limits for size. No central pulmonary vascular congestion or interstitial edema. There is no acute bone abnormality. Normal bowel gas pattern inthe upper abdomen. 1. Moderate right-sided pleural effusion without evident pneumothorax. 2. Stable interval examination with bilateral pleural plaquing and masslike nodularity at the right base. Thank you for letting us participate in the care of this patient. If you are a health care provider and have any questionsregarding this report, please contact the number below. For patients who have questions please contact the health care analyst that requested your imaging first. Film Library- Storage Only CT Chest Result Date: 02/25/2022 This exam is auto-finalizing. It's purpose is for storage only. SCAN DOC: PET SCAN Result Date: 02/05/2022 Ordered by an unspecified provider. SCAN DOC: TELEMETRY STRIPS Result Date: 02/26/2022 Ordered by an unspecified provider. SCAN DOC: TELEMETRY STRIPS Result Date: 02/26/2022 Ordered by an unspecified provider. XR Chest One View Result Date: 02/23/2022 EXAMINATION: XR CHEST ONE VIEW CLINICAL HISTORY: 76-year-old male status post bronchoscopy and right thoracentesis. Screening for pneumothorax. TECHNIQUE: A single AP portable semiupright radiograph the chest was obtained. COMPARISON: Correlation is made to CT of the chest dated February 23, 2022. Comparison is made to multiple prior chest radiograph examinations, the most recent which is dated December 19, 2021. FINDINGS: The patient is rotated to the left, limiting evaluation. There is been interval decrease with small residual right pleural effusion. There are bilateral calcified pleural plaques, unchanged configuration as compared to prior. There is no pneumothorax. There is stable volume loss within the right hemithorax. The right lung base mass is limited evaluation but appears grosslystable as compared to prior, measuring up to 4 cm in diameter. There is no new focal pulmonary nodule identified. Accounting for rotation, trachea is midline. Hilar structures are limited evaluation.The cardia mediastinal contours are unchanged. There is stable mild enlargement of the cardiac silhouette. Visualized structures within the superior abdomen inferior neck are within normal limits. There are degenerative changes of visualized spine. 1. Interval decrease with small residual right pleural effusion. No pneumothorax. 2. Stable right lung base pulmonary mass = 4 cm. 3. Stable bilateral calcified pleural plaques, consistent with asbestos related pleural disease. Thank you for letting us participate in the care of this patient. If you are a health care provider and have any questions regarding this report, please contact the numberbelow. For patients who have questions please contact the health care analyst that requested your imaging first. Electronically signed by: Bipin Christensen DO, [facility] ([phone]), at 02/23/2022 11:55 AM Film Library- Storage Only CT Neck Result Date: 02/25/2022 This exam is auto-finalizing. It's purpose is for storage only. Request For 2nd Read CT Neck Result Date: 02/26/2022 EXAMINATION: REQUEST FOR 2ND READ CT NECK CLINICAL HISTORY: upper airway obstruction; Sending Institution [facility]; Date of exam [id number]; I believe a reinterpretation of this exam may alter care of Patient. Yes TECHNIQUE: Axial sections through the neck of been obtained without use of intravenous contrast. COMPARISON: PET/CT of 01/30/2022 FINDINGS: There is an approximately 1.8 cm mass at the level of the left hypopharynx. Its largest component appears to be submucosal but there is an irregular mucosal component that protrudes into the airway appears. Posteriorly thismass extends up to the prevertebral space, laterally it extends up to the cornu of the hyoid, and me dially it extends to midline. The mass is slightly hyperattenuating relative to adjacent structuresbut of similar attenuation to muscle. No bone erosion is evident and there is no visible involvement of the hyoid or spine. The mass substantially narrows the airway. At its narrowest the airway measures 4.2 mm though this measurement may be artifactually small since it is not clear that the CT wasobtained during quiet inspiration. This mass was not FDG avid on the PET/CT of one month earlier. No lymphadenopathy is evident within the neck. The upper lungs are clear. The salivary glands are of normal appearance. Vascular structures are of normal appearance with the exception of calcification at the carotid bifurcations. There appears to have been bilateral sinonasal surgery with what likelyrepresents a remaining opacified ethmoid air cell. No air-fluid level is present within the sinuses. The mastoid air cells are clear. No expansile or lytic bone lesion is evident. There is an area ofencephalomalacia in the right posterior temporal lobe most likely representing old infarction. 1. Limited noncontrast CT of the neck. Given finding of the lesion described in #2 below, contrast-enhanced neck CT or, preferably, MRI is recommended for further evaluation. Ideally such a study would be obtained before any surgery is performed. 2. 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 This mass is not evident on the PET/CT from one month earlier. Differential diagnosis includes both trauma/hematoma and rapidly growing neoplasm Thank you for letting us participate in the care of this patient. If you are a health care provider and have any questionsregarding this report, please contact the number below. For patients who have questions please contact the health care analyst that requested your imaging first. Electronically signed by: Pratik Batista MD, [facility] ([phone]), at 02/26/2022 8:35 AM OR Endoscopy Result Date: 02/26/2022 Photographs - Images Discharge Info Discharge Condition: Stable Discharge to: Home Discharge Medications: Your Medications New Medications Dose Details acetaminophen 650 mg/20.3 mL Soln Commonly known as: Tylenol Take 20.3 mLs by mouth every 6 hours. 650 mg Quantity: 500 mL Refills: 2 amoxicillin-clavulanate 875-125 mg Tab Commonly known as: Augmentin Take 1 tablet by mouth 2 times daily for 7 days. 1 tablet Quantity: 14 tablet Refills: 0 ibuprofen 400 mg Tab Commonly known as: Motrin Take 1 tablet by mouth every 6 hours as needed for Pain. 400 mg Quantity: 30 tablet Refills: 12 Continued medications, unchanged Dose Details aspirin EC 81 mg Tbec Take 81 mg by mouth daily. 81 mg Refills: 0 multivitamin Tab Commonly known as: THERAGRAN Take 1 tablet by mouth daily. 1 tablet Refills: 0 omeprazole 20 mg Cpdr Commonly known as: PriLOSEC Take 20 mg by mouth every morning. 20 mg Refills: 0 Updated Allergies/ADRs: No Known Allergies Info for Patient Patient Instructions Instructions for Patient at Discharge: What to expect: You will have soreness which will improve over the next several days. The area around the incision may be numb. This should recover over the next few months. Laryngoscopy After a laryngoscopy, you may experience sore throat, some painful swallowing, and brief change in voice. You can use pain medications for sore throat in addition to over the counter agents such as Chloraseptic, Menthol cough drops/lozenges, honey, tea, and warm or cool drinks as tolerated for easethe sore throat. Since we took biopsies, you may have some bleeding from the mouth, however, if this does not resolve within 24-36 hours or becomes fela active bright red bleeding that does not stop, please call theoffice or check with your local ED to be evaluated. Medications: Antibiotics - take the antibiotics as prescribed Take Augmentin twice a day for 7 days. Pain Control - use acetaminophen (Tylenol) and/or ibuprofen (Motrin, Advil) as needed. You can take 500 mg to 650 mg of Tylenol every 4-6 hours as needed. Do not exceed 4g acetaminophen per day and do not drink alcohol while taking tylenol. You can also take 400 to 600 mg of Ibuprofen (Motrin,Advil) every 6 hours as needed. Constipation - Consider the use of OTC Senna/Docusate, Miralax, Metamucil, prune juice or various suppositories if you have any constipation (especially if related to narcotic/opoid related pain medication) Activity: A good rule of thumb is if it hurts don't do it. Keep your head elevated when lying flat. No heavy lifting or straining for the next week. No smoking, this is important for wound healing. Diet: Resume baseline diet We encourage that you drink high protein, high calorie nutritional shakes You should call your doctor if you develop: -Increasing pain and redness -Increasing drainage from the wound -Fever > 38.5Celsius or 101 Fahrenheit -Bleeding Contact: -You can reach the ENT clinic at [phone] for appointment questions. -The ENT triage nurse is available at [phone] -For urgent issues during evenings (5 PM - 7 AM) and weekends the ENT resident aviation technical systems specialist can be reached through the main hospital blending operator at [phone] Follow Up: You will need to follow up with ENT in one week. This appointment has been requested. You will be notified once it is scheduled, if you do not already see it below. If you do not hear from us in a timely manner, please call [phone] to receive your date and time. Currently Scheduled Appointments: Future Appointments and Orders Future Appointments and Orders Future Appointments Provider Department Dept Phone 03/06/2022 11:00 AM Landen Goodman MD Thoracic Surgery at [facility] Arrive at: [facility] [phone] General Instructions None __ Your Medications New Medications Dose Details acetaminophen 650 mg/20.3 mL Soln Commonly known as: Tylenol Take 20.3 mLs by mouth every 6 hours. 650 mg Quantity: 500 mL Refills: 2 amoxicillin-clavulanate 875-125 mg Tab Commonly known as: Augmentin Take 1 tablet by mouth 2 times daily for 7 days. 1 tablet Quantity: 14 tablet Refills: 0 ibuprofen 400 mg Tab Commonly known as: Motrin Take 1 tablet by mouth every 6 hours as needed for Pain. 400 mg Quantity: 30 tablet Refills: 12 Continued medications, unchanged Dose Details aspirin EC 81 mg Tbec Take 81 mg by mouth daily. 81 mg Refills: 0 multivitamin Tab Commonly known as: THERAGRAN Take 1 tablet by mouth daily. 1 tablet Refills: 0 omeprazole 20 mg Cpdr Commonly known as: PriLOSEC Take 20 mg by mouth every morning. 20 mg Refills: 0 Scheduled Appointments: Future Appointments Date Time Provider Department Center 03/06/2022 8:20 AM [facility] CT 2 [facility] RAD CT [facility] Rad 03/06/2022 9:00 AM [facility] AIC MRI 1 Rad [facility] Res [facility] Rad 03/06/2022 11:00 AM Landen Goodman MD [facility] THOR 3K [facility] Outpatient Services/Studies: No discharge procedures on file. Primary Care Doctor: ADRIANO Sheriff [phone] Signed: Alexy Jaramillo MD 02/27/2022 documented in this encounter Discharge Instructions * Patient Instructions* Alexy Jaramillo MD - 02/27/2022 7:28 AM EDT Instructions for Patient at Discharge: What to expect: You will have soreness which will improve over the next several days. The area around the incision may be numb. This should recover over the next few months. Laryngoscopy After a laryngoscopy, you may experience sore throat, some painful swallowing, and brief change in voice. You can use pain medications for sore throat in addition to over the counter agents such as Chloraseptic, Menthol cough drops/lozenges, honey, tea, and warm or cool drinks as tolerated for easethe sore throat. Since we took biopsies, you may have some bleeding from the mouth, however, if this does not resolve within 24-36 hours or becomes fela active bright red bleeding that does not stop, please call theoffice or check with your local ED to be evaluated. Medications: Antibiotics - take the antibiotics as prescribed Take Augmentin twice a day for 7 days. Pain Control - use acetaminophen (Tylenol) and/or ibuprofen (Motrin, Advil) as needed. You can take 500 mg to 650 mg of Tylenol every 4-6 hours as needed. Do not exceed 4g acetaminophen per day and do not drink alcohol while taking tylenol. You can also take 400 to 600 mg of Ibuprofen (Motrin,Advil) every 6 hours as needed. Constipation - Consider the use of OTC Senna/Docusate, Miralax, Metamucil, prune juice or various suppositories if you have any constipation (especially if related to narcotic/opoid related pain medication) Activity: A good rule of thumb is if it hurts don't do it. Keep your head elevated when lying flat. No heavy lifting or straining for the next week. No smoking, this is important for wound healing. Diet: Resume baseline diet We encourage that you drink high protein, high calorie nutritional shakes You should call your doctor if you develop: -Increasing pain and redness -Increasing drainage from the wound -Fever > 38.5Celsius or 101 Fahrenheit -Bleeding Contact: -You can reach the ENT clinic at [phone] for appointment questions. -The ENT triage nurse is available at [phone] -For urgent issues during evenings (5 PM - 7 AM) and weekends the ENT resident aviation technical systems specialist can be reached through the main hospital blending operator at [phone] Follow Up: You will need to follow up with ENT in one week. This appointment has been requested. You will be notified once it is scheduled, if you do not already see it below. If you do not hear from us in a timely manner, please call to receive your date and time. Currently Scheduled Appointments: Future Appointments and Orders Future Appointments and Orders Future Appointments Provider Department Dept Phone 03/06/2022 11:00 AM Landen Goodman MD Thoracic Surgery at [facility] Arrive at: Hired Hand Area 3K [phone] documented in this encounter Medications at Time of Discharge Medication Sig Dispensed Refills Start Date End Date multivitamin (THERAGRAN) Tablet Take 1 tablet by mouth daily. aspirin EC 81 mg Tablet, Delayed Release (E.C.) Take 81 mg by mouth daily. amoxicillin-clavulanate (Augmentin) 875-125 mg Tablet Take 1 tablet by mouth 2 times daily for 7 days. 14 tablet 02/27/2022 03/06/2022 acetaminophen (Tylenol) 650 mg/20.3 mL Solution Take 20.3 mLs by mouth every 6 hours. 500 mL 2 02/27/2022 07/07/2022 ibuprofen (Motrin) 400 mg Tablet Take 1 tablet by mouth every 6 hours as needed for Pain. 30 tablet 12 02/27/2022 07/07/2022 omeprazole (PriLOSEC) 20 mg Capsule, Delayed Release(E.C.) Take 20 mg by mouth every morning. 02/09/2022 09/01/2023 documented as of this encounter Progress Notes * Magaly Reveles RN - 02/27/2022 9:08 AM EDT D/C planning: Team: ENT Pager: [phone] Pt to d/c home via private vehicle. Pt/team feel no d/c needs identified at this time. Pt is aware of d/c plan. Magaly Reveles MSN-Ed, RN ACM handcrew foreman Office of Care Management Pager #[phone] * Wicho Avalos RN - 02/26/2022 10:53 PM EDT OUTCOME EVALUATION NOTE: OUTCOME SUMMARY: Slight ST depression noted with -1.4 as the most pronounced measurement. ST depressions previously recorded in telemetry taken during the day. Electrolytes reassuring and EKG resulted with LVH. Patient is asymptomatic; denies pain, nausea, and is not sweating. Provider made aware of findings. Patient continues to swallow liquids with some minor difficulty, although denies pain when doing so. Lungs clear to diminished on RA with 1L via NC overnight when asleep. VSS. IVF and IV abx underway. Safety rounding complete. PLAN MOVING FORWARD: Discharge planning [id number] INDIVIDUALIZED FALL PREVENTION INTERVENTIONS: Patient-specific fall risk factors per assessment: Line and cord management Assistance: SBA Supervision: Eyes on Surveillance: Bed locked in low position, call kibmle within reach, purposeful hourly rounding, clutter free environment, bed/chair alarm on, family at bedside Patient-specific fall prevention interventions for sensory deficits provided: Yes CPG GOAL OUTCOME EVALUATION: Continue care plan as documented. * Alexy Jaramillo MD - 02/26/2022 6:12 AM EDT Images from the original note were not included. OTOLARYNGOLOGY - HEAD & NECK SURGERY DAILY PROGRESS NOTE Name: Marco Antonio Xiong Age/Sex: 76 y.o. 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 Interval History No events overnight, patient slept comfortably, agrees to G tube if necessary Vitals Last value 24hr Range Temperature: 36.8 ??C (98.2 ??F) Temp: [36.8 ??C (98.2 ??F)-37.1 ??C (98.8 ??F)] Heart Rate: 58 Heart Rate: [58-93] Blood Pressure: 156/71 BP: (130-160)/(57-74) Respiratory Rate: 20 Resp: [18-27] SpO2: 96 % SpO2: [91 %-98 %] Intake & Output Intake/Output Summary (Last 24 hours) at 02/26/2022 0715 Last data filed at 02/26/2022 0600 Gross per 24 hour Intake 728.33 ml Output 1 ml Net 727.33 ml Physical Exam General: NAD, non-ill appearing Face: Symmetric without dysmorphic features Eyes: EOMI, conjunctiva healthy Ears: Auricles symmetric, no lesions Nose: Patent nares, grossly normal appearance Oral Cavity/Pharynx: Mucosa is pink, oropharynx symmetric Neck: Soft, trachea midline Chest: Non-labored breathing, regular rate Abdomen: Soft, non-tender Neuro: Alert & oriented, moving extremities x 4 Labs Recent Labs 02/26/22 0444 02/25/22 1836 02/25/22 1656 02/23/22 0736 WBC 7.8 -- 7.4 5.4 HGB 11.8* -- 12.3* 12.4* HCT 33.8* -- 35.8* 36.9* PLATELET 256 -- 248 247 NA 140 -- 142 142 K 4.4 4.2 Not Perf 5.1* CL 103 -- 103 104 CO2 27 -- 26 30 BUN 27* -- 22* 22* CREATININE 0.80 -- 0.76* 0.92 GLUCOSE 148 -- 131 98 CALCIUM 9.1 -- 9.1 9.1 MAGNESIUM 0.83 -- -- -- PHOS 3.6 -- -- 3.4 Imaging Procedure Note from Morgan Black PA-C 02/25/22 : The patient was topically anesthesized and decongested in bilateral nares with 1:1 lidocaine and privine. A flexible scope was then passed into the nare. Findings: - normal nasal mucosa - normal nasopharynx and bilateral rosenmuller fossas - normal appearing base of tongue and valleculae - normal appearing epiglottis - normal right vocal cord mobility; the left vocal cord appears to be mobile. - left piriform sinus with an exophytic-appearing fungating mass along the posterior mall that crosses midline; just below this there appears to be some some swelling with submucosal hematoma associated with the aryepiglottic fold on the left. ?? 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 ?? Left pyriform sinus mass along posterior pharyngeal wall, with some swelling and apparent submucosal hematoma of the left aryepiglottic fold ?? Right vocal cord appears normal, and exhibits normal mobility; the left vocal cord appears to be mobile. 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 Surgical/Head&Neck: Plan for DL with biopsy in OR today, notable family hx of malignant hyperthermia Will coordinate with gen surg for possible G-tube placement, if necessary Decadron x3 Neurologic: Pain controlled with liquid acetaminophen KENIA, motrin KENIA, oxycodone PRN Cardiovascular: PARVIN Pulmonary: Oxygenation on RA, Duoneb PRN Gastrointestinal: Zofran PRN Genitourinary: PARVIN Musculoskeletal: PARVIN Fluids/Electrolytes: mIVF @ 100 cc/hr Nutrition: NPO diet (Give Meds) Infectious Disease: WBC 7.8 Hematology: Hemoglobin 11.8 Endocrine: PARVIN Consults: GS Lines: Patient Lines/Drains/Airways Status Active Tubes/Lines/Drains Name Placement date Placement time Site Days Peripheral IV Line - Single Lumen 02/25/22 1530 median vein (underside of arm), right 02/25/22 1530-- 1 Prophylaxis: ambulation Disposition: Floor status, Attempt Cardiopulmonary Resuscitation - Inpatient Discharge: Plan for d/c TBD Alexy Jaramillo MD, PGY1 02/26/22 7:15 AM ENT Team Pager: [phone] * Ritika Oliver RN - 02/26/2022 4:16 AM EDTSummary: Nursing Patient admit to NSCU at 0200 from ED. Patient ambulated x1 standby assist from the stretcher to bed. Bhavna present, per patient is able to understand medical information and does not need an interpreter deaf, patient is primarily Moroccan speaking. Lungs clear and diminished R>L, received on room air, now on 2L NC for desat SpO2 85% while asleep. C/o pain in the throat 09/23, unable to swallow pills/water/food. NPO for biopsy today. documented in this encounter ED Notes * Pio Larsen MD - 02/25/2022 8:22 PM EDT Brief Attending Note I cared for the patient with the resident physician. Please see Dr. Amy Domingo's note, associated with the encounter, for more details. HPI: Marco Antonio Xiong is a 76 y.o. who presents to the ED as a transfer from [facility] for evaluation by ENT and interventional pulmonology. He has a history of prior smoker, who recently hada bronchoscopy for concern for lung cancer in the right lower lobe. He has had odynophagia and dysphagia for foods and liquids and change in his voice. He was noted to have a large supraglottic mass on CT scan at outside hospital and referred here. ROS: Pertinent positives and negatives are included in the history of present illness, otherwise 10 systems are reviewed and negative Allergies: No Known Allergies No past medical history on file. Past Surgical History: Procedure Laterality Date ??? [facility] EBUS GUIDED SAMPL 1/2 NODE STATION/STRUX N/A 02/23/2022 BRONCH, W ENDOBRONCHIAL ULTRASOUND (EBUS) GUIDED SAMPLING, 1/2 NODES (WRVU 4.71) performed by Bipin Moseley MD at [facility] MAIN OR ??? [facility] EB[facility] DX/TX INTERVENTION PERPH LES N/A 02/23/2022 BRONCH, W EBUS DURING INTERVENTION FOR PERIPH LESION (WRVU 1.4) performed by Bipin Moseley MD at [facility] MAIN OR ??? PRO BRONCHOSCOPY RIGID FLEX W COMPUTER ASSIST IMG NAVIGATION N/A 02/23/2022 BRONCHOSCOPY,RIGID OR FLEX,WITH IMAGE GUIDANCE ( ROBOT / MONARCH ) performed by Bipin Moseley MD at [facility] MAIN OR ??? PRO BRONCHOSCOPY, DIAGNOSTIC W LAVAGE N/A 02/23/2022 BRONCHOSCOPY, RIGID OR FLEXIBLE, WITH BRONCHIAL ALVEOLAR LAVAGE (WRVU 2.88) performed by Bipin Moseley MD at [facility] MAIN OR ??? PRO BRONCHOSCOPY, TRANSBRON ASPIR BX N/A 02/23/2022 BRONCHOSCOPY W/TRANSBRONCHIAL NEEDLE ASPIRATION BX,FLEXIBLE (WRVU 4) performed by Bipin Moseley MD at [facility] MAIN OR ??? PRO BRONCHOSCOPY, TRANSBRONCH BIOPSY N/A 02/23/2022 BRONCHOSCOPY (FLEXIBLE OR RIGID) W\TRANSBRONC BX (WRVU 3.8) performed by Bipin Recinos MDat [facility] MAIN OR ??? PRO BRONCHOSCOPY, TREAT ASPIR PULM TREE N/A 02/23/2022 BRONCHOSCOPY, W/THERAPEUTIC ASPIRATION OF TRACHEOBRONCHIAL TREE (WRVU 3.16) performed by Bipin Moseley MD at [facility] MAIN OR ??? PRO THORACENTESIS NEEDLE/CATH PLEURA W/IMAGING N/A 02/23/2022 THORACENTESIS, NEEDLE OR CATHETER; WITH IMAGE GUIDANCE (WRVU 2.27) performed by Bipin Msoeley MD at [facility] MAIN OR Social History Tobacco Use ??? Smoking status: Former Smoker Types: Cigarettes Quit date: 1986 Years since quittin.8 ??? Smokeless tobacco: Former User Substance Use Topics ??? Alcohol use: Not Currently Patient Vitals for the past 8 hrs: BP Temp Temp src Pulse Resp SpO2 02/25/221999 140/60 37.1 ??C (98.8 ??F) Oral 70 26 93 % 02/25/22 1800 141/60 -- -- 76 22 -- 02/25/22 1745 -- -- -- -- -- 98 % 02/25/22 1700 157/69 -- -- 84 23 98 % 02/25/22 1615 134/74 -- -- 85 20 97 % 02/25/22 1600 153/71 -- -- 77 25 97 % 02/25/22 1550 -- 36.9 ??C (98.4 ??F) Oral 93 18 97 % Gen: well appearing, no distress Head: atraumatic, normocephalic ENT: anicteric sclera no apparent stridor Resp: no respiratory distress CV: well perfused Abd: soft, nt Skin: warm and dry MS: No obvious deformity Neuro: speech fluent, no obvious deficit Psych: Normal mood Assessment: 76 y.o. 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 He will be admitted to ENT service for biopsy and further care. Pio Larsen MD 02/25/222024 * Katt Wiseman RN - 02/25/2022 6:26 PM EDT MD at bedside, VSS, oxygen currently at 94%. Pt reports being comfortable in bed. * Katt Wiseman RN - 02/25/2022 5:53 PM EDT Pt took oxygen off when urinating. Pt maintaining sat of 94-96% off oxygen. Will continue to monitor. * Abel Sellers MD - 02/25/2022 4:59 PM EDT ED Resident Note HPI: Marco Antonio Xiong is a 76 y.o. male who presents to the Emergency Department for evaluation by ENT and interventional pulmonology. She is currently undergoing evaluation for lung cancer for which he got her bronchoscopy with biopsy last Wednesday. Subsequently developed difficulty swallowing as well asstridor for which she presented to outside hospital today. At outside hospital CT demonstrated new neck mass as well as a new oxygen requirement for which she is transferred here for evaluation. Pertinent positives and negatives are included in the HPI, otherwise at least ten systems were reviewed and negative. Past Medical and Surgical Histories, Social History, Medications, Allergies were reviewed in the chart. Vitals: ED Triage Vitals BP: 134/74 [02/25/22 1615] Heart Rate: 93 [02/25/22 1550] Resp: 18 [02/25/221549] Temp: 36.9 ??C (98.4 ??F) [02/25/221549] Temp src: Oral [02/25/221549] SpO2: 97 % [02/25/221549] O2 Device: NC [02/25/221549] O2 Flow Rate (L/min): 2 L/min [02/25/221549] Physical Exam Vitals and nursing note reviewed. Constitutional: General: He is not in acute distress. Appearance: He is well-developed. He is not diaphoretic. HENT: Head: Normocephalic and atraumatic. Eyes: Conjunctiva/sclera: Conjunctivae normal. Neck: Comments: Tenderness to palpation over left side Cardiovascular: Rate and Rhythm: Normal rate and regular rhythm. Heart sounds: Normal heart sounds. Pulmonary: Effort: Pulmonary effort is normal. No respiratory distress. Breath sounds: Normal breath sounds. Stridor present. No wheezing or rales. Abdominal: General: Bowel sounds are normal. There is no distension. Palpations: Abdomen is soft. Tenderness: There is no abdominal tenderness. There is no guarding or rebound. Skin: General: Skin is warm and dry. Neurological: Mental Status: He is alert and oriented to person, place, and time. Cranial Nerves: No cranial nerve deficit. ED Course: I have reviewed labs and imaging, images and available reports, and they are significant for: Last 3 wbc, hgb, hct plt Recent Labs 02/25/22 16502/23/22 0736 WBC 7.4 5.4 HGB 12.3* 12.4* HCT 35.8* 36.9* PLATELET 248 247 Last 3 Lytes Recent Labs 02/25/22 1836 02/25/22 1656 02/23/22 0736 NA -- 142 142 K 4.2 Not Perf 5.1* CL -- 103 104 CO2 -- 26 30 BUN -- 22* 22* CREATININE -- 0.76* 0.92 GLUCOSE -- 131 98 XR Chest PA & Lateral (Generic) Final Result 1. Moderate right-sided pleural effusion without evident pneumothorax. 2. Stable interval examination with bilateral pleural plaquing and masslike nodularity at the right base. Thank you for letting us participate in the care of this patient. If you are a health care provider and have any questions regarding this report, please contact the number below. For patients who have questions please contact the health care analyst that requested your imaging first. Assessment and Plan: 76 y.o. male with new neck mass as well as stridor and new oxygen requirement but who is otherwise stable in the emergency department. ENT was contacted who reached out to interventional pulmonology.Patient will be admitted to the ENT service with fluids, steroids and possible biopsy of this new site. The visit findings, diagnosis, and care plan were discussed with the patient. Abel Sellers MD Resident 02/25/22 3351 Associated attestation - Pio Larsen MD - 02/26/2022 4:52 PM EDT ED ATTENDING ATTESTATION The patient was seen in conjunction with the resident physician. I have independently performed thekey portions of the history and physical exam. I have personally reviewed nursing notes, vital signs, and diagnostic studies including labs, imaging studies and EKGs. I have discussed the details of the case with the resident and agree with the assessment and plan as described in the resident's note, unless stated otherwise in my separate note. Did this case involve critical care? No * Adria Amin MD - 02/25/2022 11:56 AM EDT EM attending brief transfer acceptance note: Marco Antonio Xiong is a 76 y.o. who I accepted in transfer from [facility] The patient will be evaluated in the Emergency Department for neck mass. Had bronchoscopy 2 days ago, now with change in voice and difficulty swallowing. Found to have neck mass. Able to breath. The EM team will contact the pulmonary and ENT team (pulmonary involved in transfer call) The OSH does not agree to take the patient back in transfer after our evaluation and treatment. 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 Direct Laryngoscopy with Biopsies of LEFT pyriform sinus Anesthesia: General via oral endotracheal tube EBL 5cc Surgeon: MD Jesi Vegas MD Specimens removed during surgery: 1. LEFT pyriform sinus lesion HPI/Surgical Indications: Marco Antonio Xiong is a 76 y.o. 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 He had blood tinged secretions and significant odynophagia postoperatively and presented to [facility] with FTT. CT (wo contrast) demonstrated LEFT hypopharyngeal mass and bedside flexible laryngoscopy confirmed exophytic appearing, fungating mass along the posterior pharyngeal wall extending towards the pyriform sinus with surrounding ecchymosis and hematoma. Plan was made for direct laryngoscopywith biopsy to rule out malignant lesion vs trauma from the recent bronchoscopy. Findings: 1. Grade 1 view of the vocal [...] setting of recent trauma from bronchoscopy/intubation 02/22. Procedure Description: Patient was brought to the operating room and identified. Time out was performed. Anesthesia was introduced and the patient was turned 90 degrees. After protecting the upper gums/teeth, a Ismael laryngoscope was introduced into the oral cavity, positioned to allow for visualization of the larynx, and placed in suspension. A 0 degree Burks scope was then passed through the laryngoscope and the oropharynx, hypopharynx, and larynx were explored and visualized on the screen monitor and tower for documentation. Findings noted above. Biopsies were taken of the LEFT pyriform sinus/posterior pharyngeal wall lesion as described above. Adrenaline soaked pledgets were then placedat the sites of bleeding and were maintained until hemostasis was achieved. Patient was taken out of suspension and the Ismael laryngoscope was removed. Patient was turned back to anesthesia. All counts were correct. The patient was awakened, extubatedand brought to the recovery room in satisfactory condition having tolerated the procedure well withminimal blood loss. Jesi Kimble MD, PGY2 02/26/2022 1:57 PM Pager #[phone] Attestation: Case Date: 02/26/2022 I was present and I participated during the entire procedure (does not need to include opening and closing). CHARLIE MARTE MD 02/27/2022 * Consult Note - Chucho Nazario MD - 02/26/2022 8:29 AM EDT [facility] Acute Care Surgery Consult Note Consultation Requested by: Charlie Marte MD Consult Reason: PEG due to limited pO intake from progressive odynophagia. HPI: Marco Antonio Xiong is a 76 y.o. male w/ a hx of hyperlipidemia, diverticulosis, history of gastritis, nephrolithiasis, left inguinal hernia, and a CVA in 2006 (on aspirin). He has a 20-cteq-moge history and remote history of asbestos exposure. He is currently admitted to ENT service following post bronchoscopy/EBUS complaints of odynophagia and hoarseness of voice with a CT neck as of 02/25 showing a left hypopharyngeal mass. His main clinical problem is an ongoing work-up for possible Ca Lung following a right posterior lower lung mass noted on CT chest done in 01/05 after presentation over 15 pound weight loss over 6 months. Follow-up PET scan showed increased avidity of this mass. He underwent bronchoscopy on 02/23 with EBUS and transbronchial lung biopsy done no reports concerns over 89-year-old with hoarseness ofvoice. He denies any prior dysphagia or odynophagia. Otherwise denies any fevers or chills, no chest pain. He is not on any blood thinners, and no prior history of abdominal surgeries except a left inguinalhernia repair. PMH/PSH: History reviewed. No pertinent past medical history. Past Surgical History: Procedure Laterality Date ??? [facility] EBUS GUIDED SAMPL 1/2 NODE STATION/STRUX N/A 02/23/2022 BRONCH, W ENDOBRONCHIAL ULTRASOUND (EBUS) GUIDED SAMPLING, 1/2 NODES (WRVU 4.71) performed by Bipin Moseley MD at [facility] MAIN OR ??? PRO [facility] EBUS DX/TX INTERVENTION PERPH LES N/A 02/23/2022 BRONCH, W EBUS DURING INTERVENTION FOR PERIPH LESION (WRVU 1.4) performed by Bipin Moseley MD at [facility] MAIN OR ??? PRO BRONCHOSCOPY RIGID FLEX W COMPUTER ASSIST IMG NAVIGATION N/A 02/23/2022 BRONCHOSCOPY,RIGID OR FLEX,WITH IMAGE GUIDANCE ( ROBOT / MONARCH ) performed by Bipin Moseley MD at [facility] MAIN OR ??? PRO BRONCHOSCOPY, DIAGNOSTIC W LAVAGE N/A 02/23/2022 BRONCHOSCOPY, RIGID OR FLEXIBLE, WITH BRONCHIAL ALVEOLAR LAVAGE (WRVU 2.88) performed by Bipin Moseley MD at [facility] MAIN OR ??? PRO BRONCHOSCOPY, TRANSBRON ASPIR BX N/A 02/23/2022 BRONCHOSCOPY W/TRANSBRONCHIAL NEEDLE ASPIRATION BX,FLEXIBLE (WRVU 4) performed by Bipin Moseley MD at [facility] MAIN OR ??? PRO BRONCHOSCOPY, TRANSBRONCH BIOPSY N/A 02/23/2022 BRONCHOSCOPY (FLEXIBLE OR RIGID) W\TRANSBRONC BX (WRVU 3.8) performed by Bipin Recinos MDat [facility] MAIN OR ??? PRO BRONCHOSCOPY, TREAT ASPIR PULM TREE N/A 02/23/2022 BRONCHOSCOPY, W/THERAPEUTIC ASPIRATION OF TRACHEOBRONCHIAL TREE (WRVU 3.16) performed by Bipin Moseley MD at [facility] MAIN OR ??? PRO THORACENTESIS NEEDLE/CATH PLEURA W/IMAGING N/A 02/23/2022 THORACENTESIS, NEEDLE OR CATHETER; WITH IMAGE GUIDANCE (WRVU 2.27) performed by Bipin Moseley MD at [facility] MAIN OR MEDICATIONS: No current facility-administered medications on file prior to encounter. Current Outpatient Medications on File Prior to Encounter Medication Sig Dispense Refill ??? multivitamin (THERAGRAN) Tablet Take 1 tablet by mouth daily. ??? aspirin EC 81 mg Tablet, Delayed Release (E.C.) Take 81 mg by mouth daily. ??? omeprazole (PriLOSEC) 20 mg Capsule, Delayed Release(E.C.) Take 20 mg by mouth every morning. ALLERGIES: No Known Allergies FAMILY HISTORY: Denies history of bleeding or clotting disorders. Denies history of reactions to anesthesia. Hx of malignant hyperthermia in mother. History reviewed. No pertinent family history. SOCIAL HISTORY: Tobacco: as per hPI Illicit Drugs: [x ]denies Social History Socioeconomic History ??? Marital status: Spouse name: Not on file ??? Number of children: Not on file ??? Years of education: Not on file ??? Highest education level: Not on file Occupational History ??? Not on file Tobacco Use ??? Smoking status: Former Smoker Types: Cigarettes Quit date: 1986 Years since quittin.8 ??? Smokeless tobacco: Former User Substance and Sexual Activity ??? Alcohol use: Not Currently ??? Drug use: Never ??? Sexual activity: Not on file Other Topics Concern ??? Not on file Social History Narrative ??? Not on file Social Determinants of Health Financial Resource Strain: Not on file Food Insecurity: Not on file Transportation Needs: Not on file Physical Activity: Not on file Housing Stability: Not on file REVIEW OF SYSTEMS: As stated above, otherwise ten system review negative Physical Exam: Temp: [36.1 ??C (97 ??F)-37.1 ??C (98.8 ??F)] Heart Rate: [58-93] Resp: [18-27] BP: (130-160)/(57-74) SpO2: [91 %-98 %] Heart Rate from SpO2: [58 bpm-85 bpm] Gen: NAD, A0x3 HEENT: NORMA CVS: RRR Pulm: CTAB, breathing comfortably on NC 2lpm; Bronchial breath sound Right upper lung. GI: nontender; nondistended MSK: WWP, no edema Vascular: 2+dp/pt bilaterally Neuro: moving all 4 extremities spontaneously, nonfocal Data independently reviewed: Recent Results (from the past 24 hour(s)) Basic Metabolic Panel (non-fasting) Result Value Ref Range Glucose Lvl 131 65 - 199 mg/dL BUN 22 (H) 10 - 20 mg/dL Creatinine 0.76 (L) 0.80 - 1.50 mg/dL Sodium 142 135 - 145 mmol/L Potassium Not Perf 3.5 - 5.0 Chloride 103 98 - 107 mmol/L CO2 26 22 - 31 mmol/L Anion Gap 13 5 - 15 mmol/L Calcium 9.1 8.5 - 10.5 mg/dL Estimated GFR 92 >=60 mL/min/1.73 m?? Hemogram Result Value Ref Range WBC 7.4 4.0 - 9.5 x10(3)/mcL RBC 3.69 (L) 4.58 - 5.54 x10(6)/mcL Hemoglobin 12.3 (L) 13.7 - 16.5 g/dL Hematocrit 35.8 (L) 40.5 - 48.5 % MCV 97.0 (H) 82.9 - 93.1 fL MCH 33.3 (H) 27.5 - 32.1 pg MCHC 34.4 32.0 - 35.7 g/dL Platelets 248 145 - 357 x10(3)/mcL RDWSD 43.8 36.0 - 45.0 fL RDWCV 12.3 11.4 - 13.8 % MPV 9.3 7.6 - 12.9 fL nRBC % Auto 0.0 % nRBC Abs Auto 0.000 0.000 - 0.000 x10(3)/mcL Differential, Automated Result Value Ref Range Neutrophils % 93.5 % Neutr Abs (ANC) 6.95 (H) 1.70 - 6.10 x10(3)/mcL Lymphocytes % 4.2 % Lymphocytes Abs 0.3 (L) 0.9 - 3.2 x10(3)/mcL Monocytes % 1.9 % Monocyte Abs 0.1 (L) 0.3 - 0.9 x10(3)/mcL Eosinophils % 0.0 % Eosinophils Abs 0.0 0.0 - 0.4 x10(3)/mcL Basophils % 0.1 % Basophils Abs 0.0 0.0 - 0.1 x10(3)/mcL Immature Gran % 0.30 % Afia Gran Abs 0.02 0.00 - 0.04 x10(3)/mcL Urine Hold Result Value Ref Range Urine Hold Sample in lab. Potassium Result Value Ref Range Potassium 4.2 3.5 - 5.0 mmol/L Basic Metabolic Panel (non-fasting) Result Value Ref Range Glucose Lvl 148 65 - 199 mg/dL BUN 27 (H) 10 - 20 mg/dL Creatinine 0.80 0.80 - 1.50 mg/dL Sodium 140 135 - 145 mmol/L Potassium 4.4 3.5 - 5.0 mmol/L Chloride 103 98 - 107 mmol/L CO2 27 22 - 31 mmol/L Anion Gap 10 5 - 15 mmol/L Calcium 9.1 8.5 - 10.5 mg/dL Estimated GFR 91 >=60 mL/min/1.73 m?? Magnesium Result Value Ref Range Magnesium 0.83 0.69 - 1.07 mmol/L Phosphorus Result Value Ref Range Phosphorus 3.6 2.5 - 4.5 mg/dL Prealbumin Result Value Ref Range Prealbumin 11 (L) 20 - 40 mg/dL Hemogram Result Value Ref Range WBC 7.8 4.0 - 9.5 x10(3)/mcL RBC 3.55 (L) 4.58 - 5.54 x10(6)/mcL Hemoglobin 11.8 (L) 13.7 - 16.5 g/dL Hematocrit 33.8 (L) 40.5 - 48.5 % MCV 95.2 (H) 82.9 - 93.1 fL MCH 33.2 (H) 27.5 - 32.1 pg MCHC 34.9 32.0 - 35.7 g/dL Platelets 256 145 - 357 x10(3)/mcL RDWSD 42.7 36.0 - 45.0 fL RDWCV 12.2 11.4 - 13.8 % MPV 9.1 7.6 - 12.9 fL nRBC % Auto 0.0 % nRBC Abs Auto 0.000 0.000 - 0.000 x10(3)/mcL Differential, Automated Result Value Ref Range Neutrophils % 86.5 % Neutr Abs (ANC) 6.72 (H) 1.70 - 6.10 x10(3)/mcL Lymphocytes % 6.1 % Lymphocytes Abs 0.5 (L) 0.9 - 3.2 x10(3)/mcL Monocytes % 7.0 % Monocyte Abs 0.5 0.3 - 0.9 x10(3)/mcL Eosinophils % 0.0 % Eosinophils Abs 0.0 0.0 - 0.4 x10(3)/mcL Basophils % 0.3 % Basophils Abs 0.0 0.0 - 0.1 x10(3)/mcL Immature Gran % 0.10 % Afia Gran Abs 0.01 0.00 - 0.04 x10(3)/mcL Imaging: CT neck: IMPRESSION 1. Limited noncontrast CT of the neck. Given finding of the lesion described in #2 below, contrast-enhanced neck CT or, preferably, MRI is recommended for further evaluation. Ideally such a study would be obtained before any surgery is performed. 2. 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 This mass is not evident on the PET/CT from one month earlier. Differential diagnosis includes both trauma/hematoma and rapidly growing Neoplasm Dx chest: IMPRESSION ?? 1. Moderate right-sided pleural effusion without evident pneumothorax. 2. Stable interval examination with bilateral pleural plaquing and masslike nodularity at the right base. ?? Impression: This is a 76-year-old male with significant smoking history, currently being worked up for possible Ca lung. Left hypopharyngeal mass was noted on CT soft tissue neck 02/25 following a presentation of hoarseness of voice with odynophagia 2 days post bronchoscopy with EBUS. He being planned as an add-on for DL today with ENT. General surgery is being consulted for PEG tube placement inanticipation of worsening p.o. tolerance. He is hemodynamically normal and comfortable on NC. He reports that he has had no swallowing problems prior to the bronchoscopy. He has a suspicious mass in the left hypopharynx for which direct laryngoscopy is being planned today. Following a discussion with general surgical team, it appears earlyin his diagnostic pathway to have a PEG tube placed. Based on his nutritional status and ongoing p.o. tolerance, and diagnostic pathway, this can be planned as an elective. General surgery can be engaged anytime during his current admission. Case discussed with Carter Rao MD director of radio services. Chucho Nazario MD 02/26/2022 General Surgery [phone] * Consult Note - Naomie Jones RPH - 02/26/2022 2:51 AM EDT TelePharmacy Home Medication List Update for Medication Reconciliation 02/26/22 2:51 AM Marco Antonio Xiong 1945 No Known Allergies ??? Person Interviewed: spouse ??? Quality of Interview/accuracy of medication list: good ??? Sources used to compile medication list: [x] Epic medication list [x] SureScripts [] PCP/Specialist list [] Retail pharmacy [x] Patient list [] MAR [] Other ??? Changes made to home medication list: o Additions: - Multivitamin 1 tab po daily o Deletions: - None o Changes: - None ??? Additional Notes: Updated medication list with patients spouse. Per spouse took medications on 02/25/22 but they were spit back out. ??? Recommended changes: None The home medication list is now updated to the best of my knowledge and is ready to be reconciled by the provider. Please contact the TelePharmacy Medication Reconciliation Pharmacist at for any questions. Naomie Jones RPH * Consult Note - Morgan Black PA - 02/25/2022 6:02 PM EDT Images from the original note were not included. [facility] Otolaryngology - Head & Neck Surgery Consult Note Primary Care Physician:ADRIANO Sheriff Primary team Attending:No name on file. Date: 02/25/2022 ENT Attending: Dr. Marte Reason for consultation: Throat mass History present illness: We have been asked to see Marco Antonio Xiong by his primary team. History obtained through patient interview, review of relevant records, and/or discussion with referring provider. Marco Antonio Xiong is a 76 y.o. 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 Symptoms all started after his procedure. Left jaw pain, localizes to angle of mandible, and left otalgia. Pain with chewing and swallowing. Dysphagia to solids and liquids. Has been able to take in small amounts of foods and liquids only. Liquids have gone up into his nose a couple of times. Changes in voice. Hemoptysis on Wednesday and Wednesday, not so much today. Presented to the ED at [place]. As he had changes in his breathing there, they put him on oxygen. No trismus. No numbness. No swelling or lumps in the neck. No significant ETOH history. No difficulty with breathing, unless exerting himself. 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 Past medical history: No past medical history on file. There are no problems to display for this patient. Social history: Lives in : .[place] [id number]* Family history: No family history on file. Medications: Prior to Admission medications Medication Sig Start Date End Date Taking? Authorizing Provider aspirin EC 81 mg Tablet, Delayed Release (E.C.) Take 81 mg by mouth daily. PROVIDER, HISTORICAL omeprazole (PriLOSEC) 20 mg Capsule, Delayed Release(E.C.) Take 20 mg by mouth every morning. 02/09/22 PROVIDER, HISTORICAL Allergies: Allergies as of 02/25/2022 ??? (No Known Allergies) Physical Exam Patient Vitals for the past 24 hrs: Temp Pulse Resp BP SpO2 O2 Flow Rate (L/min) O2 Device 02/25/22 1550 36.9 ??C (98.4 ??F) 93 18 -- 97 % 2 L/min NC 02/25/22 1600 -- 77 25 153/71 97 % -- -- 02/25/22 1615 -- 85 20 134/74 97 % -- -- 02/25/22 1700 -- 84 23 157/69 98 % -- -- Gen: Well developed. Intelligible speech, Some hoarseness noted. On 4L nasal cannula. Face: No dysmorphic facial features Eyes: Pupils are equal, round. Periocular structures and conjunctiva healthy without lesions. Ears: Auricles symmetric bilaterally without lesions. Tympanic membranes not examined. Nose: Patent anteriorly; healthy pink mucosa without lesions. No purulent drainage, no significant inferior turbinate hypertrophy. Oral Cavity: Lips and gingiva pink, moist, without lesions. Edentulous superiorly; multiple missingand compromised teeth inferiorly. Hard palate without lesions. Oropharynx: Soft palate without lesions. Oropharynx symmetric. Neck: Soft, supple, normal range of motion. Trachea midline without deviation. No crepitus Lymph: No abnormal cervical lymphadenopathy. Neuro: CN II - Visual acuity and smith grossly intact CN III, IV, - EOMI CN V - Sensation intact in V1,2 and 3 distributions CN VII - Symmetric eyebrow raise, nose scrunch, smile, no facial droop, complete eye closure bilaterally CN IX, X - Palate and uvula midline CN XI - Trapezius 5/5 bilat CN XII - Tongue midline Skin: warm, dry, no abnormal lesions on the head or neck Psych: normal mood and affect, no evidence of depression or agitation. Procedure Note: The patient was topically anesthesized and decongested in bilateral nares with 1:1 lidocaine and privine. A flexible scope was then passed into the nare. Findings: - normal nasal mucosa - normal nasopharynx and bilateral rosenmuller fossas - normal appearing base of tongue and valleculae - normal appearing epiglottis - normal right vocal cord mobility; the left vocal cord appears to be mobile. - left piriform sinus with an exophytic-appearing fungating mass along the posterior mall that crosses midline; just below this there appears to be some some swelling with submucosal hematoma associated with the aryepiglottic fold on the left. 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 Left pyriform sinus mass along posterior pharyngeal wall, with some swelling and apparent submucosal hematoma of the left aryepiglottic fold Right vocal cord appears normal, and exhibits normal mobility; the left vocal cord appears to be mobile. Radiology (I personally review the images): No official radiologist read available at the time of writing this note, but the patient appears tohave a left piriform sinus mass of ~3cms. Second read pending. Assessment: 76 y.o. male with a 50 pack year tobacco history; history and asbestos exposure, working in [employer] for many years; who presents with odynophagia, dysphagia, changes in voice, hemoptysis, and otalgia s/p bronchoscopy and biopsy procedure two days ago for a right lower lobe mass that is FDG avid, and concerning for malignancy. Flexible laryngoscopy reveals a left pyriform sinus mass, crossing midline, and some swelling and possible hematoma of the aryepiglottic fold on the left. The pyriform sinus lesion is concerning for possible malignancy, and should be considered such until proven otherwise. Plan to admit the patient for rehydration, assessment of nutritional status, andfor the patient to undergo direct laryngoscopy with biopsy tomorrow in the OR, to obtain diagnosis;as well as consideration of possible g-tube placement. Plan also to give steroids to reduce associated swelling, to hopefully improve patient's symptomology. Patient will also need to consult with Anesthesia prior, given his significant family history of Malignant Hyperthermia. Recommendations/Plan: Admit to ENT service. IV fluids. IV steroids. Direct laryngoscopy with biopsy in the main OR. Consideration of g-tube placement. Anesthesia consultation prior to procedure. We appreciate the opportunity to be involved in Mr. Xiong's care. Please page if further questions or concerns arise. During daytime hours please page me. For urgentevening and weekend issues page the ENT resident aviation technical systems specialist. Morgan Black PA-C Pager: [phone] documented in this encounter Plan of Treatment Upcoming Encounters Date Type Department Care Team (Late st Contact Info) Description 06/20/2024 10:00 AM EST Office Visit Hematology/Oncology at [address] [phone] Lia Barber, [address] [place] [address] 06/20/2024 10:30 AM EST Infusion Hematology Oncology at [address] [phone] 07/04/2024 11:00 AM EST Office Visit Hematology/Oncology at [address] [phone] [place] [address] 07/04/2024 11:30 AM EST Infusion Hematology Oncology at [address] [phone] documented as of this encounter Procedures Procedure Name Priority Date/Time Associated Diagnosis Comments EKG 12-LEAD Routine 02/26/2022 8:56 PM EDT EKG abnormalities HEMOGRAM Routine 02/26/2022 8:51 PM EDT DIFFERENTIAL, AUTOMATED Routine 02/26/2022 8:51 PM EDT HC VENIPUNCTURE Routine 02/26/2022 8:51 PM EDT HC PHOSPHORUS, SERUM Routine 02/26/2022 8:51 PM EDT HC MAGNESIUM, SERUM Routine 02/26/2022 8 :51 PM EDT BASIC METABOLIC PANEL Routine 02/26/2022 8:51 PM EDT SPECIMEN TO PATHOLOGY Routine 02/26/2022 1:44 PM EDT SURGICAL PATHOLOGY REPORT Routine 02/26/2022 1:43 PM EDT Laryngoscopy, Direct, Diagnostic ([id number]) 02/26/2022 1:06 PM EDT LEFT hypopharyngeal mass LARYNGOSCOPY, DIRECT, DIAGNOSIS, EXCEPT Routine 02/26/2022 11:34 AM EDT HEMOGRAM Routine 02/26/2022 4:44 AM EDT DIFFERENTIAL, AUTOMATED Routine 02/26/2022 4:44 AM EDT HC CBC,PLT & AUTO DIFF Routine 02/26/2022 4:44 AM EDT HC PREALBUMIN, SERUM Routine 02/26/2022 4:44 AM EDT HC PHOSPHORUS, SERUM Routine 02/26/2022 4:44 AM EDT HC MAGNESIUM, SERUM Routine 02/26/2022 4 :44 AM EDT HC VENIPUNCTURE Routine 02/26/2022 4:44 AM EDT HC POTASSIUM STAT 02/25/2022 6:36 PM EDT URINE HOLD STAT 02/25/2022 5:54 PM EDT HEMOGRAM STAT 02/25/2022 4:56 PM EDT DIFFERENTIAL, AUTOMATED STAT 02/25/2022 4:56 PM EDT HC CBC,PLT & AUTO DIFF STAT 02/25/2022 4:56 PM EDT BASIC METABOLIC PANEL STAT 02/25/2022 4:56 PM EDT XR CHEST PA AND LATERAL STAT 02/25/2022 4:19 PM EDT documented in this encounter Results * EKG 12 Lead (02/26/2022 8:56 PM EDT) Ventricular rate 59 BPM MUSE SYSTEM Atrial Rate 59 BPM MUSE SYSTEM P-R Interval 134 ms MUSE SYSTEM QRS Duration 96 ms MUSE SYSTEM Q-T Interval 444 ms MUSE SYSTEM QTC Calculated (Bezet) 439 ms MUSE SYSTEM Calculated P [place] 52 degrees MUSE SYSTEM Calculated R [place] 56 degrees MUSE SYSTEM Calculated T [place] 79 degrees MUSE SYSTEM INTERPRETATION Sinus bradycardia Minimal voltage criteria for LVH, may be normal variant ( Sokolow-Jiménez ) Nonspecific ST abnormality Abnormal ECG No previous ECGs available Confirmed by MD Misael, Meek ([id number]) on 02/27/2022 8:39:32 AM MUSE SYSTEM 02/26/2022 8:56 PM EDT 02/27/2022 8:39 AM EDT Charlie Marte MD ECG ORDERABLES MUSE SYSTEM * (ABNORMAL) Differential, Automated (02/26/2022 8:51 PM EDT) Neutrophil % 86.1 % [facility] Neutrophil Absolute 6.62(H) 1.70 - 6.10 x10(3)/mc L [facility] Lymph % 5.2 % [facility] Lymphocytes Abs 0.4(L) 0.9 - 3.2 x10(3)/mc L [facility] Monocyte % 8.2 % [facility] Monocyte Abs 0.6 0.3 - 0.9 x10(3)/mc L [facility] Eos % 0.0 % [facility] Eosinophils Abs 0.0 0.0 - 0.4 x10(3)/mc L [facility] Basophil % 0.1 % [facility] Baso Absolute 0.0 0.0 - 0.1 x10(3)/mc L [facility] Immature Gran % 0.40 % [facility] Comment: Immature granulocytes(IG's)percentage and absolute count will include metamyelocytes, myelocytes, and promyelocytes. Blood smears from CBCs yielding IG's will be scanned manually for concordance. If this scan disagrees with the automated IG or if promyelocytes are noted, a manual differential will be performed. Immature Gran Absolute 0.03 0.00 - 0.04 x10(3)/mc L [facility] Blood 02/26/2022 8:51 PM EDT 02/26/2022 8:56 PM EDT Narrative Resulting Agency Comment Spec In Lab Mary Perkins MD HEMATOLOGY ORDERABLE S [facility] [place] [address] * (ABNORMAL) Hemogram (02/26/2022 8:51 PM EDT) White Blood Cell 7.7 4.0 - 9.5 x10(3)/[facility] Red Blood Cell 3.44(L) 4.58 - 5.54 x10(6)/[facility] Hemoglobin 11.5(L) 13.7 - 16.5 g/dL [facility] Hematocrit 33.3(L) 40.5 - 48.5 % [facility] Mean Cell Volume 96.8(H) 82.9 - 93.1 fL [facility] Mean Cell Hemoglobin 33.4(H) 27.5 - 32.1 pg [facility] Mean Cell Hemoglobin Concentration 34.5 32.0 - 35.7 g/dL [facility] Platelet 294 145 - 357 x10(3)/[facility] RDW Standard Deviation 43.8 36.0 - 45.0 [facility] RDW coefficient of variation 12.3 11.4 - 13.8 % [facility] Mean Platelet Volume 9.4 7.6 - 12.9 [facility] NRBC% auto 0.0 % [facility] NRBC Absolute 0.000 0.000 - 0.000 x10(3)/ L [facility] Blood 02/26/2022 8:51 PM EDT 02/26/2022 8:56 PM EDT Narrative Resulting Agency Comment Spec In Lab Mary Perkins MD HEMATOLOGY ORDERABLE S Performing Organization Address [facility] Co de Phone Number [facility] [place] [address] * Phosphorus (02/26/2022 8:51 PM EDT) Phosphorus 2.7 2.5 - 4.5 mg/dL [facility] Blood 02/26/2022 8:51 PM EDT 02/26/2022 8:56 PM EDT Narrative Resulting Agency Comment Spec In Lab Charlie Marte MD CHEMISTRY ORDERABL ES Performing Organization Address [facility] de Phone Number [facility] [place] [address] * Magnesium (02/26/2022 8:51 PM EDT) Magnesium 0.82 0.69 - 1.07 mmol/L [facility] Blood 02/26/2022 8:51 PM EDT 02/26/2022 8:56 PM EDT Narrative Resulting Agency Comment Spec In Lab Charlie Marte MD CHEMISTRY ORDERABL ES Performing Organization Address [facility] Co de Phone Number [facility] [place] [address] * (ABNORMAL) Basic Metabolic Panel (non-fasting) (02/26/2022 8:51 PM EDT) Glucose 167 65 - 199 mg/dL [facility] Comment:Diabetes: >=200 mg/d L plus symptoms Blood Urea Nitrogen 32(H) 10 - 20 mg/dL [facility] Creatinine 0.96 0.80 - 1.50 mg/dL [facility] Sodium 142 135 - 145 mmol/L [facility] Potassium 4.4 3.5 - 5.0 mmol/L [facility] Comment: Please note: ??Patients with WBC >100,000 may have falsely elevated Potassium levels. ??For accurate Potassium quantification in these patients send serum separator tube (gold top) for subsequent determinations. ??Contact the Clinical Chemistry Laboratory if there are any questions. Chloride 106 98 - 107 mmol/L [facility] Carbon Dioxide 25 22 - 31 mmol/L [facility] Anion Gap 11 5 - 15 mmol/L [facility] Calcium 8.8 8.5 - 10.5 mg/dL [facility] Est Glomerular Filtration Rate 81 >=60 mL/min/1. 73 m?? [facility] Comment: This patient's estimated GFR was [...] and symptoms in addition to eGFR. Blood 02/26/2022 8:51 PM EDT 02/26/2022 8:56 PM EDT Narrative Resulting Agency Comment Spec In Lab Charlie Marte MD CHEMISTRY ORDERABL ES Performing Organization Address [facility]/ZIP Co de Phone Number [facility] [place] [address] * Specimen to Pathology (02/26/2022 1:44 PM EDT) AP Specimen 02/26/2022 1:44 PM EDT 02/26/2022 1:44 PM EDT Narrative [facility] - 02/26/2022 1:44 PM EDT Specimen requisition ordered. ??Separate Pathology report to follow Charlie Marte MD PATHOLOGY/CYTOLOGY ORDERABLES Performing Organization Address [facility]/ZIP Co de Phone Number [facility] [place] [address] * Surgical Pathology Report (02/26/2022 1:43 PM EDT) Final Diagnosis [id number] ? Location: [facility]; [facility]; The signing pathologist has (i) examined the relevant preparation(s) for the specimen(s) and (ii) rendered or confirmed the diagnosis(es). . ?Surgical Pathology DIAGNOSIS LEFT pyriform sinus lesions, biopsy: Fragments of squamous mucosa and soft tissue with ulceration, necrotic debris, acute suppurative inflammation and bacterial overgrowth; no evidence of malignancy. Electronically signed by: ?Tommy EMERSON, Veronique Lincoln Verified: ??03/09/2022 15:23 ??Pathologist Performed at: ??-[facility] Dept. of Pathology, [place], [place] SPECIMEN(S) SUBMITTED A - LEFT pyriform sinus lesions, excision (1) CLINICAL INFORMATION Left hypopharyngeal mass SPECIMEN PROCESSING A - Labeled/Fixative: Left pyriform sinus lesions, saline. Quantity/Size: Multiple, ranging from 0.3-0.9 cm. Tissue Description: Soft, red tissues. Sections/Processi ng: Submitted en toto ??in 3 cassettes labeled A1-A3. ??sns 03/09/2022 3:23 PM EDT [facility] BIOPSY SPECIMEN / Unknown 02/26/2022 1:43 PM EDT 02/26/2022 1:43 PM EDT Charlie Marte MD PATHOLOGY/CYTOLOGY ORDERABLES [facility] [place] [address] * (ABNORMAL) Differential, Automated (02/26/2022 4:44 AM EDT) Neutrophil % 86.5 % [facility] Neutrophil Absolute 6.72(H) 1.70 - 6.10 x10(3)/[facility] Lymph % 6.1 % [facility] Lymphocytes Abs 0.5(L) 0.9 - 3.2 x10(3)/[facility] Monocyte % 7.0 % [facility] Monocyte Abs 0.5 0.3 - 0.9 x10(3)/[facility] Eos % 0.0 % [facility] Eosinophils Abs 0.0 0.0 - 0.4 x10(3)/[facility] Basophil % 0.3 % [facility] Baso Absolute 0.0 0.0 - 0.1 x10(3)/[facility] Immature Gran % 0.10 % [facility] Comment: Immature granulocytes(IG's)percentage and absolute count will include metamyelocytes, myelocytes, and promyelocytes. Blood smears from CBCs yielding IG's will be scanned manually for concordance. If this scan disagrees with the automated IG or if promyelocytes are noted, a manual differential will be performed. Immature Gran Absolute 0.01 0.00 - 0.04 x10(3)/[facility] Blood 02/26/2022 4:44 AM EDT 02/26/2022 5:01 AM EDT Narrative Resulting Agency Comment Spec In Lab Jesi Kimble MD HEMATOLOGY ORDERABLE S [facility] [place] [address] * (ABNORMAL) Hemogram (02/26/2022 4:44 AM EDT) White Blood Cell 7.8 4.0 - 9.5 x10(3)/[facility] LABORATORY Red Blood Cell 3.55(L) 4.58 - 5.54 x10(6)/[facility] LABORATORY Hemoglobin 11.8(L) 13.7 - 16.5 g/dL [facility] LABORATORY Hematocrit 33.8(L) 40.5 - 48.5 % [facility] LABORATORY Mean Cell Volume 95.2(H) 82.9 - 93.1 [facility] LABORATORY Mean Cell Hemoglobin 33.2(H) 27.5 - 32.1 pg [facility] LABORATORY Mean Cell Hemoglobin Concentration 34.9 32.0 - 35.7 g/dL [facility] LABORATORY Platelet 256 145 - 357 x10(3)/mc L [facility] LABORATORY RDW Standard Deviation 42.7 36.0 - 45.0 [facility] LABORATORY RDW coefficient of variation 12.2 11.4 - 13.8 % [facility] LABORATORY Mean Platelet Volume 9.1 7.6 - 12.9 [facility] LABORATORY NRBC% auto 0.0 % [facility] LABORATORY NRBC Absolute 0.000 0.000 - 0.000 x10(3)/mc L [facility] LABORATORY Blood 02/26/2022 4:44 AM EDT 02/26/2022 5:01 AM EDT Narrative Resulting Agency Comment Spec In Lab Jesi Kimble MD HEMATOLOGY ORDERABLE S Performing Organization Address City/[facility]/ZIP Co de Phone Number [facility] [place] [address] * (ABNORMAL) Prealbumin (02/26/2022 4:44 AM EDT) Prealbumin 11(L) 20 - 40 mg/dL [facility]OR[facility]ORY Comment: Prealbumin levels are generally lower in the pediatric population; adult concentrations are usually attained near puberty. Blood 02/26/2022 4:44 AM EDT 02/26/2022 5:01 AM EDT Narrative Resulting Agency Comment Spec In Lab Charlie Marte MD CHEMISTRY ORDERABL ES [facility] [place] [address] * Phosphorus (02/26/2022 4:44 AM EDT) Phosphorus 3.6 2.5 - 4.5 mg/dL [facility] LABORATORY Blood 02/26/2022 4:44 AM EDT 02/26/2022 5:01 AM EDT Narrative Resulting Agency Comment Spec In Lab Charlie Marte MD CHEMISTRY ORDERABL ES Performing Organization Address [facility] de Phone Number [facility] [place] [address] * Magnesium (02/26/2022 4:44 AM EDT) Magnesium 0.83 0.69 - 1.07 mmol/L [facility] LABORATORY Blood 02/26/2022 4:44 AM EDT 02/26/2022 5:01 AM EDT Narrative Resulting Agency Comment Spec In Lab Charlie Marte MD CHEMISTRY ORDERABL ES Performing Organization Address [facility] de Phone Number [facility] [place] [address] * (ABNORMAL) Basic Metabolic Panel (non-fasting) (02/26/2022 4:44 AM EDT) Glucose 148 65 - 199 mg/dL [facility] LABORATORY Comment:Diabetes: >=200 mg/d L plus symptoms Blood Urea Nitrogen 27(H) 10 - 20 mg/dL [facility] LABORATORY Creatinine 0.80 0.80 - 1.50 mg/dL [facility] Sodium 140 135 - 145 mmol/L [facility] LAB[facility] Potassium 4.4 3.5 - 5.0 mmol/L [facility]OR[facility]ORY Comment: Please note: ??Patients with WBC >100,000 may have falsely elevated Potassium levels. ??For accurate Potassium quantification in these patients send serum separator tube (gold top) for subsequent determinations. ??Contact the Clinical Chemistry Laboratory if there are any questions. Chloride 103 98 - 107 mmol/L [facility] LABORATORY Carbon Dioxide 27 22 - 31 mmol/L [facility] LABORATORY Anion Gap 10 5 - 15 mmol/L [facility] LABOR[facility]ORY Calcium 9.1 8.5 - 10.5 mg/dL [facility] LABORATORY Est Glomerular Filtration Rate 91 >=60 mL/min/1. 73 m?? [facility] LABOR[facility] Comment: This patient's estimated GFR was [...] and symptoms in addition to eGFR. Blood 02/26/2022 4:44 AM EDT 02/26/2022 5:01 AM EDT Narrative Resulting Agency Comment Spec In Lab Charlie Marte MD CHEMISTRY ORDERABL ES [facility] [place] [address] * Potassium (02/25/2022 6:36 PM EDT) Potassium 4.2 3.5 - 5.0 mmol/L [facility] LABORATORY Comment: Please note: ??Patients with WBC >100,000 may have falsely elevated Potassium levels. ??For accurate Potassium quantification in these patients send serum separator tube (gold top) for subsequent determinations. ??Contact the Clinical Chemistry Laboratory if there are any questions. Blood 02/25/2022 6:36 PM EDT 02/25/2022 6:43 PM EDT Narrative Resulting Agency Comment Spec In Lab Pio Larsen MD CHEMISTRY ORDERABL ES Performing Organization Address City/[facility]/ZIP [place] [address] * Urine Hold (02/25/2022 5:54 PM EDT) Hold, Urine Sample in lab. [facility]OR[facility]ORY Urine 02/25/2022 5:54 PM EDT 02/25/2022 6:02 PM EDT Pio Larsen MD URINE ORDERABLES Performing Organization Address [facility] [place] [address] * (ABNORMAL) Differential, Automated (02/25/2022 4:56 PM EDT) Neutrophil % 93.5 % [facility] LABORATORY Neutrophil Absolute 6.95(H) 1.70 - 6.10 x10(3)/mc L [facility] LABORATORY Lymph % 4.2 % [facility] LABORATORY Lymphocytes Abs 0.3(L) 0.9 - 3.2 x10(3)/mc L [facility] LABORATORY Monocyte % 1.9 % [facility] LAB[facility] Monocyte Abs 0.1(L) 0.3 - 0.9 x10(3)/mc L [facility] LABORATORY Eos % 0.0 % [facility] Eosinophils Abs 0.0 0.0 - 0.4 x10(3)/mc L [facility] LABORATORY Basophil % 0.1 % [facility] Baso Absolute 0.0 0.0 - 0.1 x10(3)/mc L [facility]OR[facility]ORY Immature Gran % 0.30 % [facility] Comment: Immature granulocytes(IG's)percentage and absolute count will include metamyelocytes, myelocytes, and promyelocytes. Blood smears from CBCs yielding IG's will be scanned manually for concordance. If this scan disagrees with the automated IG or if promyelocytes are noted, a manual differential will be performed. Immature Gran Absolute 0.02 0.00 - 0.04 x10(3)/ L [facility] LABORATORY Blood 02/25/2022 4:56 PM EDT 02/25/2022 5:17 PM EDT Narrative Resulting Agency Comment Spec In Lab Abel Sellers MD HEMATOLOGY OR DERABLES Performing Organization Address City/State/[facility] Co de Phone Number [facility] [place] [address] * (ABNORMAL) Hemogram (02/25/2022 4:56 PM EDT) White Blood Cell 7.4 4.0 - 9.5 x10(3)/[facility] LABORATORY Red Blood Cell 3.69(L) 4.58 - 5.54 x10(6)/[facility] LABORATORY Hemoglobin 12.3(L) 13.7 - 16.5 g/dL [facility] LABORATORY Hematocrit 35.8(L) 40.5 - 48.5 % [facility] LABORATORY Mean Cell Volume 97.0(H) 82.9 - 93.1 fL [facility] LABORATORY Mean Cell Hemoglobin 33.3(H) 27.5 - 32.1 pg [facility] LABORAT[facility] Mean Cell Hemoglobin Concentration 34.4 32.0 - 35.7 g/dL [facility] LABORATORY Platelet 248 145 - 357 x10(3)/[facility] LABORATORY RDW Standard Deviation 43.8 36.0 - 45.0 [facility] LABORATORY RDW coefficient of variation 12.3 11.4 - 13.8 % [facility] LABORATORY Mean Platelet Volume 9.3 7.6 - 12.9 fL [facility]ORY NRBC% auto 0.0 % [facility] NRBC Absolute 0.000 0.000 - 0.000 x10(3)/ L [facility] LABOR[facility]ORY Blood 02/25/2022 4:56 PM EDT 02/25/2022 5:17 PM EDT Narrative Resulting Agency Comment Spec In Lab Abel Sellers MD HEMATOLOGY OR DERABLES [facility] [place] [address] * (ABNORMAL) Basic Metabolic Panel (non-fasting) (02/25/2022 4:56 PM EDT) Glucose 131 65 - 199 mg/dL [facility] Comment:Diabetes: >=200 mg/d L plus symptoms Blood Urea Nitrogen 22(H) 10 - 20 mg/dL [facility] Creatinine 0.76(L) 0.80 - 1.50 mg/dL [facility] Sodium 142 135 - 145 mmol/L [facility] Potassium Not Perf 3.5 - 5.0 [facility] Comment: Unable to quantitate due to sample hemolysis. ??Sample redraw suggested. Called by: MARIA, Read back by: Veronique Broderick, Date/Time:02/25/22 18:00. Please note: ??Patients with WBC >100,000 may have falsely elevated Potassium levels. ??For accurate Potassium quantification in these patients send serum separator tube (gold top) for subsequent determinations. ??Contact the Clinical Chemistry Laboratory if there are any questions. Chloride 103 98 - 107 mmol/L [facility] Carbon Dioxide 26 22 - 31 mmol/L [facility] Anion Gap 13 5 - 15 mmol/L [facility] Calcium 9.1 8.5 - 10.5 mg/dL [facility] Est Glomerular Filtration Rate 92 >=60 mL/min/1. 73 m?? [facility] Comment: This patient's estimated GFR was [...] and symptoms in addition to eGFR. Blood 02/25/2022 4:56 PM EDT 02/25/2022 5:17 PM EDT Narrative Resulting Agency Comment Spec In Lab Pio Larsen MD CHEMISTRY ORDERABL ES [facility] [place] [address] * XR Chest PA & Lateral (Generic) (02/25/2022 4:19 PM EDT) Anatomical Region Laterality Modality Chest N/A Digital Radiogra phy Impressions 02/25/2022 4:38 PM EDT 1. Moderate right-sided pleural effusion without evident pneumothorax. 2. Stable interval examination with bilateral pleural plaquing and masslike nodularity at the right base. Thank you for letting us participate in the care of this patient. ??If you are a health care provider and have any questions regarding this report, please contact the number below. ??For patients who have questions please contact the health care analyst that requested your imaging first. ? 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 Plaquing and nodularity at the right base and right lateral chest wall, similar degree of plaquing at the left lateral chest wall. Relative hyperexpansion of the left lung versus the right. There is a persistent right-sided pleural effusion, similar to the prior study. There is no evident pneumothorax on this examination. Cardiac and mediastinal contours unchanged and within normal limits for size. No central pulmonary vascular congestion or interstitial edema. There is no acute bone abnormality. Normal bowel gas pattern in the upper abdomen. 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 Plaquing and nodularity at theright base and right lateral chest wall, similar degree of plaquing at the leftlateral chest wall. Relative hyperexpansion of the left lung versus the right. There is a persistent right-sided pleural effusion, similar to the priorstudy. There is no evident pneumothorax on this examination. Cardiac and mediastinal contours unchanged and within normal limits forsize. No central pulmonary vascular congestion or interstitial edema. There is no acute bone abnormality. Normal bowel gas pattern in theupper abdomen. IMPRESSION 1. Moderate right-sided pleural effusion without evident pneumothorax. 2. Stable interval examination with bilateral pleural plaquing andmasslike nodularity at the right base. Thank you for letting us participate in the care of this patient. If youare a health care provider and have any questions regarding this report,please contact the number below. For patients who have questions please contactthe health care analyst that requested your imaging first. Pio Larsen MD IMG DX ORDERABLES documented in this encounter Visit Diagnoses Not on filedocumented in this encounter Admitting Diagnoses Diagnosis Hypopharyngeal mass Other diseases of pharynx, not elsewhere classified documented in this encounter Administered Medications Inactive Administered Medications - up to 3 most recent administrations Medication Order MAR Action Action Date Dose Rate Site acetaminophen (Tylenol) (32.02 mg/mL) oral liquid 650 mg 650 mg, Oral, EVERY 6 HOURS SCHEDULED, First dose on Wed02/26/22 at 0000, Until Discontinued, Maximum dose of acetaminophen is 4000 mg from all sources in 24 hours. When ordered for pain, acetaminophen should be given even when other ordered pain medications are indicated. , Routine Given 02/27/2022 5:56 AM EDT 650 mg Given 02/26/2022 5:28 PM EDT 650 mg Given 02/25/2022 11:01 PM EDT 650 mg ampicillin-sulbactam (Unasyn) 3 g vial attach to sodium chloride 0.9% 100 mL Mini-Bag Plus 3 g, Intravenous, EVERY 8 HOURS, 15 doses, First dose on Wed02/26/22 at 1445, Last dose on Wed03/03/22 at 0645, Administer over 30 Minutes, Warning Vesicant/Irritant Medication , Indication for (Active or Suspected): Prophylaxis New Bag 02/27/2022 5:59 AM EDT 3 g 200 mL/ hr New Bag 02/26/2022 10:07 PM EDT 3 g 200 mL/hr New Bag 02/26/2022 2:35 PM EDT 3 g 200 mL/hr dexAMETHasone (PF) (Decadron) (10 mg/mL) injection 8 mg 8 mg, Intravenous, EVERY 8 HOURS SCHEDULED, 3 doses, First dose (after last modification) on Wed02/26/22 at 1800, Last dose on Wed02/27/22 at 1400 Given 02/27/2022 5:47 AM EDT 8 mg Given 02/26/2022 5:28 PM EDT 8 mg EPINEPHrine (Adrenalin) nasal solution ONCE PRN, Starting on Wed02/26/22 at 1331, Until Wed02/27/22 at 1114, Intra-Operative (Intra-Procedure), Routine Given 02/26/2022 1:31 PM EDT 5 mLs 19- Surgical Site ibuprofen (Motrin) tablet 400 mg 400 mg, Oral, USER SPECIFIED (4 times per day), First dose on Wed02/25/22 at 2000, Until Discontinued, Administer orally with milk or food to minimize GI irritation. Maximum dose of 3,200 mg from all sources in 24 hours, Routine Given 02/26/2022 8:02 PM EDT 400 mg Given 02/25/2022 8:27 PM EDT 400 mg ipratropium-albuteroL (Duoneb) 0.5 mg-3 mg(2.5 mg base)/3 mL nebulizer solution 3 mL 3 mL, Nebulization, EVERY 4 HOURS PRN, Starting on Wed02/25/22 at 1844, Until Wed02/27/22 at 1114, Wheezing, Routine oxyCODONE (Roxicodone) tablet 5-10 mg 5-10 mg, Oral, EVERY 3 HOURS PRN, Starting on Wed02/25/22 at 1844, Until Wed02/27/22 at 1114, Pain, Give 5 mg for pain 1-5; Give 10 mg for pain 6-10, Routine sodium chloride 0.9% infusion 75 mL/hr, Intravenous, CONTINUOUS, Starting on Wed02/25/22 at 1848, Until Wed02/27/22 at 1114 New Bag 02/26/2022 8:04 PM EDT 75 mL/hr 75 m L/hr Restarted 02/26/2022 3:20 PM EDT 75 mL/hr 75 mL/hr Rate/Dose Change 02/26/2022 8:34 AM EDT 75 mL/hr 75 mL/h r documented in this encounter Active and Recently Administered Medications Times are shown in EDT. Scheduled Medication Order 02/25/2022 02/26/2022 02/27/2022 acetaminophen (Tylenol) (32.02 mg/mL) oral liquid 650 mg 650 mg, Oral, EVERY 6 HOURS SCHEDULED, First dose on Aileen 02/26/22 at 0000, Until Discontinued, Maximum dose of acetaminophen is 4000 mg from all sources in 24 hours. When ordered for pain, acetaminophen should be given even when other ordered pain medications are indicated. , Routine 2301 (Given - Provider: Mela Fragoso RN) 0600 (Not Given - Provider: Ritika Oliver RN - Reason: Patient Unable - Comment: Patient unable to swallow)1200 (Not Given - Provider: Georgi Dior RN - Reason: NPO)1306 (MAR Hold - Provider: Admin Adt - Reason: Transfer to a Procedural area)1504 (MAR Unhold - Provider: Mary Alcantar)1728 (Given - Provider: Georgi Dior, RN) 0053 (Not Given - Provider: Wicho Avalos, SOREN - Reason: Patient/family refused)0556 (Given - Provider: Wicho Avalos, SOREN) ampicillin-sulbactam (Unasyn) 3 g vial attach to sodium chloride 0.9% 100 mL Mini-Bag Plus 3 g, Intravenous, EVERY 8 HOURS, 15 doses, First dose on Wed02/26/22 at 1445, Last dose on Wed03/03/22 at 0645, Administer over 30 Minutes, Warning Vesicant/Irritant Medication , Indication for (Active or Suspected): Prophylaxis 1435 (New Bag - Provider: Patricia Pool RN)1505 (Stopped - Provider: Georgi Dior RN)2207 (New Bag - Provider: Wicho Avalos, SOREN)2237 (Stopped - Provider: Wicho Avalos, SOREN) 0559 (New Bag - Provider: Wicho Avalos RN)0629 (Stopped - Provider: Wicho Avalos, SOREN) dexAMETHasone (PF) (Decadron) (10 mg/mL) injection 8 mg (CANCELED) 8 mg, Intravenous, EVERY 8 HOURS SCHEDULED, 3 doses, First dose on Wed02/25/22 at 2200, Last dose on Wed02/26/22 at 1400 2256 (Given - Provider: Mela Fragoso RN) 0552 (Given - Provider: Ritika Oliver RN) dexAMETHasone (PF) (Decadron) (10 mg/mL) injection 8 mg 8 mg, Intravenous, EVERY 8 HOURS SCHEDULED, 3 doses, First dose (after last modification) on Wed02/26/22 at 1800, Last dose on Wed02/27/22 at 1400 1728 (Given - Provider: Georgi Dior, SOREN) 0547 (Given - Provider: Wicho Avalos, SOREN) ibuprofen (Motrin) tablet 400 mg 400 mg, Oral, USER SPECIFIED (4 times per day), First dose on Wed02/25/22 at 2000, Until Discontinued, Administer orally with milk or food to minimize GI irritation. Maximum dose of 3,200 mg from all sources in 24 hours, Routine 2026 (Given - Provider: Mela Fragoso, SOREN) 0500 (Not Given - Provider: Ritika Oliver RN - Reason: Patient Unable - Comment: Patient unable to swallow pills)1000 (Not Given - Provider: Georgi Dior, SOREN - Reason: NPO)1306 (MAR Hold - Provider: Admin Adt - Reason: Transfer to a Procedural area)1500 (Automatically Held - Provider: Admin Adt)1504 (MAR Unhold - Provider: Admin Adt)2001 (Given - Provider: Wicho Avalos, SOREN) 0500 (Not Given - Provider: Wicho Avalos RN - Reason: Patient/family refused) Continuous Medication Order 02/25/2022 02/26/2022 02/27/2022 sodium chloride 0.9% infusion 75 mL/hr, Intravenous, CONTINUOUS, Starting on 02/25/22 at 1848, Until Wed02/27/22 at 1114 2020 (New Bag - Provider: Mela Fragoso RN) 0338 (Rate/Dose Verify - Provider: Ritika Oliver RN)0834 (Rate/Dose Change - Provider: Georgi Dior, SOREN)1306 (MAR Hold - Provider: Admin Adt - Reason: Transfer to a Procedural area)1504 (MAR Unhold - Provider: Admin Adt)1520 (Restarted - Provider: Georgi Dior, RN)2003 (New Bag - Provider: Wicho Avalos, SOREN) 1114 (Due: Stopped) PRN Medication Order 02/25/2022 02/26/2022 02/27/2022 EPINEPHrine (Adrenalin) nasal solution (CANCELED) ONCE PRN, Starting on Aileen 02/26/22 at 1331, Until 02/27/22 at 1114, Intra-Operative (Intra-Procedure), Routine 1331 (Given - Provider: Jalil Marte MD - Comment: Used for hemostasis) ipratropium-albuteroL (Duoneb) 0.5 mg-3 mg(2.5 mg base)/3 mL nebulizer solution 3 mL 3 mL, Nebulization, EVERY 4 HOURS PRN, Starting on 02/25/22 at 1844, Until 10/14/22 at 1114, Wheezing, Routine 1306 (JUL Hold - Provider: Admin Adt - Reason: Transfer to a Procedural area)1504 (JUL Unhold - Provider: Admin Adt) oxyCODONE (Roxicodone) tablet 5-10 mg 5-10 mg, Oral, EVERY 3 HOURS PRN, Starting on Wed02/25/22 at 1844, Until Wed02/27/22 at 1114, Pain, Give 5 mg for pain 1-5; Give 10 mg for pain 6-10, Routine 1306 (JUL Hold - Provider: Admin Adt - Reason: Transfer to a Procedural area)1504 (JUL Unhold - Provider: Admin Adt) documented in this encounter Care Teams Slope Runner Relationship Specialty Start Date End Date Kadi Lane [place] [address] PCP - General Family Medicine 07/28/16 documented as of this encounter
--- OUTSIDE RECORDS SUMMARY | 2024-06-20 01:29 | XMS_ITS | Encounter Summary ---
[place] [address] Care Team Providers Care Insurance Healthcare Consultant Name Role Phone Kadi Lane Primary Care Provider [phone] Encounter Details Date Type Department Care Team (Latest Contact Info) Description 03/03/2022 Multidisciplinary Ca re Committee [place] [phone] Landen Goodman MD [address] [place] [id number] Social History Tobacco Use Types Packs/Day Years [...] Progress Notes * Landen Goodman MD - 03/03/2022 11:59 PM EDT Thoracic - Tumor Board Note Date Presented: 03/03/2022 Presenting Physician: Landen Goodman MD Diagnosis/Tumor Site: 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 Now s/p negative biopsy Imaging: CT and PET Pathology/Histology: Benign lung parenchyma Stage: N/A Clinical Data (Exams, Labs, etc.): As per chart Molecular Pathology Results: N/A Clinical Trial Availability: N/A Options Discussed: Possible infectious etiology. Prescribe azithromycin and rescan in 8-12 weeks. Recommendations: Antibiotics and rescan DISCLAIMER: The patient was discussed and the tumor board made recommendations but it is ultimatelyup to the treatment provider(s) and the patient to determine the patient???s care. documented in this encounter Plan of Treatment Upcoming Encounters Date Type Department Care Team (Late st Contact Info) Description 06/20/2024 10:00 AM EST Office Visit Hematology/Oncology at [address] [phone] [place] [address] 06/20/2024 10:30 AM EST Infusion Hematology Oncology at [address] [phone] 07/04/2024 11:00 AM EST Office Visit Hematology/Oncology at [address] [phone] [place] [address] 07/04/2024 11:30 AM EST Infusion Hematology Oncology at [address] [phone] documented as of this encounter Visit Diagnoses Not on filedocumented in this encounter Care Teams Insurance Healthcare Consultant Relationship Specialty Start Date End Date Kadi Lane PA [address] [place], [place] [address] [address] PCP - General Family Medicine 07/28/16 documented as of this encounter
--- OUTSIDE RECORDS SUMMARY | 2024-06-20 01:29 | XMS_ITS | Encounter Summary ---
[place] [address] Care Team Providers Care Machine Ironer Name Role Phone Kadi Lane Primary Care Provider [phone] Encounter Details Date Type Department Care Team (Late st Contact Info) Description 03/03/2022 Orders [place] [phone] Landen Goodman MD [address] [place] [phone] Pulmonary mass Social History Tobacco Use Types Packs/Day [...] AM EST Office Visit Hematology/Oncology at [address] [phone] HEMATOLOGY AND ONCOLOGY [place], [place] [phone] 06/20/2024 10:30 AM EST Infusion Hematology Oncology at [address] [phone] 07/04/2024 11:00 AM EST Office Visit Hematology/Oncology at [address] [phone] HEMATOLOGY AND ONCOLOGY [place], [place] [phone] 07/04/2024 11:30 AM EST Infusion Hematology Oncology at [address] [phone] documented as of this encounter Results * Creatinine (06/19/2022 10:24 AM EST) Creatinine 0.82 0.80 - 1.50 mg/dL [facility] Est Glomerular Filtration Rate 90 >=60 mL/min/1. 73 m?? [facility] Comment: This patient's estimated GFR was [...] and symptoms in addition to eGFR. Blood 06/19/2022 10:2 4 AM EST 06/19/2022 10:41 AM EST Narrative Resulting Agency Comment Spec In Lab Landen Goodman MD CHEMISTRY ORDERABLES [facility] [place] [address] documented in this encounter Visit Diagnoses Diagnosis Pulmonary mass Swelling, mass, or lump in chest documented in this encounter Care Teams Machine Ironer Relationship Specialty Start Date End Date Kadi [place] [address] PCP - General Family Medicine 07/28/16 documented as of this encounter
--- OUTSIDE RECORDS SUMMARY | 2024-06-20 01:29 | XMS_ITS | Encounter Summary ---
Author Organization [facility] Address [facility] [place] [address] Care Team Providers Care Electrical Tech/Project Manager Name Role Phone Kadi Lane Primary Care Provider [phone] Reason for Visit * Consultation (Routine) - Closed Specialty Diagnoses / Procedures Referred By Contmarlys t Referred To Contact Cardiology Diagnoses Positive cardiac stress test Self mail [facility] [address] [place] [phone] Referral ID Status Reason Start Date Expiration Date Visits Re quested Visits Authorized [id number] Closed 07/02/2022 07/02/2023 1 1 Encounter Details Date Type Department Care Team (Latest Contact Info) Description 07/07/2022 9:00 AM EST Office Visit Cardiology at [address] [phone] Isaac Ledbetter MD [facility] [place] [phone] Rodriguez Nichole MD Hypopharyngeal mass; Bradycardia; Chest pain, unspecified type; History of hyperlipidemia Social History Tobacco Use Types Packs/Day Years Used Date Smoking Tobacco: Former Cigarettes 2 32 1 956 - 1987 Smokeless Tobacco: Former Tobacco Cessation:Counseling [...] Sign Reading Time Taken Comments Blood Pressure 160/70 07/07/2022 9:23 AM EST notified Pulse 55 07/07/2022 9:23 AM EST Temperature - - Respiratory Rate - - Oxygen Saturation 97% 07/07/2022 9:2 3 AM EST Inhaled Oxygen Concentration - - Weight 64.6 kg (142 lb 6.4 oz) 07/07/2022 9:23 AM EST Height 170.2 cm (5' 7) 07/07/2022 9:23 AM EST patient reported Body Mass Index 22.3 07/07/2022 9:23 AM EST documented in this encounter Progress Notes * Rodriguez Nichole MD - 07/07/2022 9:00 AM EST Cardiology Clinic Note History of Present Illness Marco Antonio Xiong is a 76 y.o. 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 He underwent diagnostic bronchoscopy on 02/22/2022 for??RLL FDG avid mass concerning for lung cancer. Post-operatively he experienced blood tinged secretions and significant odynophagia. CT demonstrated left hypopharyngeal mass and bedside flexible laryngoscopy confirmed exophytic appearing, fungating mass along the posterior pharyngeal wall extending towards the pyriform sinus with surrounding ecchymosis and hematoma. He was brought to the OR for direct laryngoscopy with biopsy to rule out malignant lesion vs trauma from the recent bronchoscopy on 02/26/22. Biopsy results were negative for malignancy. He completed an extended course of Azithromycin. Repeat CT scan shows unchanged size of the mass. His case was discussed during tumor board and options included repeat biopsy vs surgery vs conservative management. His is here today in clinic with him and reports that he is scheduled for surgery this with plan for inpatient stay for a few days following. It is unclear if he is having another biopsy vs surgery. He underwent exercise nuclear SPECT MPI on 07/01/2022 at [facility] and was found to have large apical ischemia and LV EF 39%. He reports experiencing substernal chest pressure reproducibly upon lifting heavy objects of 50 to 75 pounds. He describes it as a pushing sensation on his chest and heaviness, about a 5 out of 10 in intensity. It lasts for about 10 minutes and relieves with rest. It has not occurred at rest or woken him up from sleep. It does not occur with physical walking, climbing a flight of stairs, or walking uphill. It has been steady in frequency and not progressively worsening. He denies LE edema, orthopnea, PND, palpitations,presyncope. All other systems reviewed and are negative, except for those outlined above. Past Medical History: Diagnosis Date ??? Chronic obstructive pulmonary disease ??? Gastroesophageal reflux disease ??? Lung nodule ??? Pulmonary asbestosis Past Surgical History: Procedure Laterality Date ??? PRO [facility] EBUS GUIDED SAMPL 1/2 NODE STATION/STRUX N/A 02/23/2022 BRONCH, W ENDOBRONCHIAL ULTRASOUND (EBUS) GUIDED SAMPLING, 1/2 NODES (WRVU 4.71) performed by Bipin Moseley MD at [facility] MAIN OR ??? PRO [facility] EBUS DX/TX INTERVENTION PERPH LES N/A 02/23/2022 BRONCH, W EBUS DURING INTERVENTION FOR PERIPH LESION (WRVU 1.4) performed by Bipin Moseley MD at [facility] MAIN OR ??? PRO BRONCHOSCOPY RIGID FLEX W COMPUTER ASSIST IMG NAVIGATION N/A 02/23/2022 BRONCHOSCOPY,RIGID OR FLEX,WITH IMAGE GUIDANCE ( ROBOT / MONARCH ) performed by Bipin Moseley MD at [facility] OR ??? PRO BRONCHOSCOPY, DIAGNOSTIC W LAVAGE N/A 02/23/2022 BRONCHOSCOPY, RIGID OR FLEXIBLE, WITH BRONCHIAL ALVEOLAR LAVAGE (WRVU 2.88) performed by Bipin Moseley MD at [facility] MAIN OR ??? PRO BRONCHOSCOPY, TRANSBRON ASPIR BX N/A 02/23/2022 BRONCHOSCOPY W/TRANSBRONCHIAL NEEDLE ASPIRATION BX,FLEXIBLE (WRVU 4) performed by Bipin Moseley MD at [facility] MAIN OR ??? PRO BRONCHOSCOPY, TRANSBRONCH BIOPSY N/A 02/23/2022 BRONCHOSCOPY (FLEXIBLE OR RIGID) W\TRANSBRONC BX (WRVU 3.8) performed by Bipin Recinos MDat [facility] MAIN OR ??? PRO BRONCHOSCOPY, TREAT ASPIR PULM TREE N/A 02/23/2022 BRONCHOSCOPY, W/THERAPEUTIC ASPIRATION OF TRACHEOBRONCHIAL TREE (WRVU 3.16) performed by Bipin Moseley MD at [facility] MAIN OR ??? PRO LARYNGOSCOPY, DIRECT DIAGNOSTIC N/A 02/26/2022 LARYNGOSCOPY, DIRECT, DIAGNOSIS, EXCEPT (WRVU 2.63) performed by Charlie Marte MD [facility] MAIN OR ??? PRO THORACENTESIS NEEDLE/CATH PLEURA W IMAGING N/A 02/23/2022 THORACENTESIS, NEEDLE OR CATHETER; WITH IMAGE GUIDANCE (WRVU 2.27) performed by Bipin Moseley MD at [facility] MAIN OR Social History Socioeconomic History ??? Marital status: Spouse name: None ??? Number of children: None ??? Years of education: None ??? Highest education level: None Occupational History ??? None Tobacco Use ??? Smoking status: Former Packs/day: 2.00 Years: 32.00 Pack years: 64.00 Types: Cigarettes Start date: 1955 Quit date: 1986 Years since quittin.1 ??? Smokeless tobacco: Former Vaping Use ??? Vaping Use: Never used Substance and Sexual Activity ??? Alcohol use: Not Currently ??? Drug use: Never ??? Sexual activity: None Other Topics Concern ??? None Social History Narrative Lives with his in [place], [place] (2.5 hr). 3 kids, all grown up. 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 Originally from [place]. Social Determinants of Health Financial Resource Strain: Not on file Food Insecurity: Not on file Transportation Needs: Not on file Physical Activity: Not on file Housing Stability: Not on file Family History Problem Relation Age of Onset ??? Malignant Hyperthermia Mother Current Outpatient Medications Medication Sig Dispense Refill ??? magnesium oxide (Mag-Ox) 400 mg (241.3 mg magnesium) Tablet Take 400 mg by mouth daily. ??? multivitamin (THERAGRAN) Tablet Take 1 tablet by mouth daily. ??? aspirin EC 81 mg Tablet, Delayed Release (E.C.) Take 81 mg by mouth daily. ??? omeprazole (PriLOSEC) 20 mg Capsule, Delayed Release(E.C.) Take 20 mg by mouth every morning. ??? metoprolol succinate XL (Toprol-XL) 25 mg Tablet Sustained Release 24 hr Take 0.5 tablets by mouth daily. 90 tablet 3 ??? atorvastatin (Lipitor) 40 mg Tablet Take 1 tablet by mouth daily. 90 tablet 3 ??? nitroGLYcerin (Nitrostat) 0.4 mg Tablet, Sublingual Place 1 tablet under the tongue every 5 minutes as needed for Chest pain. 30 tablet 3 No Known Allergies Physical Exam Vitals: BP 160/70 (BP Location (NBP): Left arm, Patient Position: Sitting, BP Cuff Sizes: Adult (25-34 cm)) Comment: MD notified Pulse 55 Ht 170.2 cm (5' 7) Comment: patient reported Wt 64.6 kg (142 lb 6.4 oz) SpO2 97% BMI 22.30 kg/m?? General: Alert and cooperative, no acute distress. Head: Normocephalic. Atraumatic. Eyes: Extra-ocular movements intact. Neck: Neck supple, non-tender without lymphadenopathy, masses or thyromegaly. No carotid bruits. Chest: Symmetrical expansion. No tenderness to palpation. Cardiac: Regular rate and rhythm. Normal S1 and S2. No murmurs, gallops, or rubs. No jugular venousdistention. Lungs: Clear to auscultation and percussion without rales, rhonchi, wheezing, or diminished breath sounds. Abdomen: Positive bowel sounds. Soft, nontender, nondistended. No guarding or rebound. Extremities: No bilateral lower extremity edema. 2+ DP and PT pulses. Extremities warm and well perfused. Skin: Skin normal color, texture, and turgor with no lesions or eruptions. Neurological: CN II-XII grossly intact. No focal deficits. Recent Labs 02/26/22205002/26/22 0444 02/25/22 1656 WBC 7.7 7.8 7.4 HGB 11.5* 11.8* 12.3* HCT 33.3* 33.8* 35.8* PLATELET 294 256 248 Recent Labs 06/19/22 1024 02/26/22 2051 02/26/22 0444 02/25/22 1836 02/25/22 1656 NA -- 142 140 -- 142 K -- 4.4 4.4 4.2 Not Perf CL -- 106 103 -- 103 CO2 -- 25 27 -- 26 BUN -- 32* 27* -- 22* CREATININE 0.82 0.96 0.80 -- 0.76* Recent Labs 02/23/22 0736 AST 20 ALT 17 ALKPHOS 221* BILITOT 0.6 Diagnostic Studies ECG (07/07/2022); NSR. LVH. Deep broad T wave inversions in V2-V6 extending to B6-, I, aVL. St elevation in V1. Exercise stress SPECT MPI (07/01/2022 at [facility]): 1. Large area of apical ischemia. 2. EF 39% PFT (07/02/2022): Spirometry demonstrates severe (FEV1 35 to 49%) obstruction. Reduced FVC could represent co-existent restriction or air trapping. The presence of restriction or air trapping can be tested by measurement of lung volumes. Moderate reduction in diffusing capacity (DLCO 40 to 60%). Compared to the laststudy on 02/13/22, the FVC is not significantly changed, the FEV1 decreased by 0.18 L and the DLCO decreased by 14%. Obstruction combined with a reduced diffusion capacity suggests emphysema. Assessment and Plan Marco Antonio Xiong is a 76 y.o. 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 #FDG avid 4.3cm pleural based right lower lobe lung nodule #Pre-operative cardiac risk assessment #Abnormal cardiac stress test The patient has a 4.3 cm pleural based RLL nodule that is FDG avid positive. Biopsy was negative for malignancy. He is planned for a second biopsy vs surgical resection. By Lau Activity Score Index,he is able to perform about 7 METs of activity. He reports recurrent anginal chest pressure upon lifting heavy objects. ECG performed in clinic today shows deep T wave inversions in anterolateral leads, concerning for a type B Wellens pattern, suggestive of high grade LAD disease. The exercise stress SPECT MPI shows large ischemia in the apex, which corresponds with these findings. Given his anginal symptoms and abnormal findings suggestive of LAD disease, I think his risk of catina-operative TX is high. If he is planned for simply a biopsy, this can probably be performed without revascularization. If he is planned for a surgical resection, then I will discuss with his thoracic surgeon the urgency to performing the surgery and recommend revascularization with cardiac cath and PCI, which will delay surgery by about 6 months. In the mean time, we will initiate medical therapy for coronary artery disease today. - continue aspirin 81 mg daily - start atorvastatin 40 mg daily - start metoprolol succinate 12.5 mg daily - start nitroglycerin 0.4 mg SL Q5MIN PRN chest pain - will clarify with thoracic surgery team the surgery/procedure that is planned and urgency; plan for LHC and PCI if surgical resection is planned - ordered echocardiogram to verify LVEF - ordered lipid panel and HbA1c Return to clinic in 2 to 3 months on day of echocardiogram for management of abnormal cardiac stress test. The patient was discussed with attending physician Dr. Ledbetter. Please see attending addendum for any additions or modifications. Rodriguez Nichole MD Coat Check Attendant * Isaac Ledbetter MD - 07/07/2022 9:00 AM EST Images from the original note were not included. Cardiology Staff Addendum: This patient was seen today and personally interviewed and examined. Agree with documentation by Dr. Nichole, which I have reviewed and independently confirmed. Briefly, this 59-year-old man was referred for Cardiologic evaluation after being found to have a right lower lobe metabolically active nodule which was negative for malignancy after 2 biopsies but for which there is ongoing suspicion about malignancy. He was evaluated with a nuclear stress test which reportedly showed a large apical area of ischemia with an ejection fraction of 39%. He does have some cardiac symptoms with reported exertional chest pressure with heavy lifting for the last 6 months or so. He is functionally active and does not have any anginal sounding symptoms with usual activities. At this point it is unclear whether thoracic surgery is planning to do definitive surgery or proceed with more extensive biopsies. His exam today is unremarkable and accurately documented by Dr. Nichole. It was independently performed by me. Assessment: In summary, this is a 76-year-old man with a suspicious right lower lobe lung nodule which is metabolically active and still suspicious for malignancy. There is uncertainty about the planned course of action by thoracic surgery. If he needs only another biopsy, I think this would be reasonable without further cardiac intervention. On the other hand, in the context of his current EKG (deep T wave inversions) and stress test findings, if he needs and the plan is to proceed with major thoracic surgery on lung resection, we recommend clarifying his cardiac status further before proceeding with such surgery. Heart catheterization is clearly a reasonable next step but would likely necessitate antiplatelet therapy for at least 6 months and may delay definitive thoracic surgery. We plan to have further conversations with thoracic surgery to explore their plans and will further refine our recommendations once this information is in hand. Isaac Ledbetter MD, FA, FAC documented in this encounter Plan of Treatment Upcoming Encounters Date Type Department Care Team (Late st Contact Info) Description 06/20/2024 10:00 AM EST Office Visit Hematology/Oncology at [address] [phone] Lia Barber [address] HEMATOLOGY AND ONCOLOGY [place], [place] [address] 06/20/2024 10:30 AM EST Infusion Hematology Oncology at [address] [phone] 07/04/2024 11:00 AM EST Office Visit Hematology/Oncology at [address] [phone] Lia Barber [address] HEMATOLOGY AND ONCOLOGY [place], [place] [phone] 07/04/2024 11:30 AM EST Infusion Hematology Oncology at [address] [phone] documented as of this encounter Procedures Procedure Name Priority Date/Time Associated Diagnosis Comments EKG 12-LEAD Routine 07/07/2022 9:32 AM EST Bradycardia documented in this encounter Results * Hemoglobin A1c (07/07/2022 10:53 AM EST) Hemoglobin A1c 5.5 4.3 - 5.6 % [facility] Comment: Reference Range: 4.3 - 5.6% [...] Mellitus, Diabetes Care 2013; 36: Suppl. 1, S67-51 Estimated Average Glucose See note mg/dL [facility] Comment: Estimated Average Glucose not appropriate [...] into estimated average glucose values. ??Diabetes Care 2008:31(8):8416-6739. Blood 07/07/2022 10:5 3 AM EST 07/07/2022 11:05 AM EST Narrative Resulting Agency Comment Spec In Lab Isaac Ledbetter MD CHEMISTRY ORDERABLES [facility] [place] [address] * Lipid Panel (Reflex Direct LDL) (07/07/2022 10:53 AM EST) Cholesterol, Total 160 mg/dL [facility] Comment: Lower Risk: <200 mg/dL Average Risk: 200-239 mg/dL Higher Risk: >du=288 mg/dL Triglyceride 182 mg/dL [facility] Comment: Average Risk/Lower Risk: <150 mg/dL Borderline High Risk: 150-199 mg/dL High Risk: 200-499 mg/dL Very High Risk: >my=843 mg/dL HDL Cholesterol 34 mg/dL [facility] Comment: Males: ?? Higher Risk: <40 mg/dL Females: ?? Higher Risk: <50 mg/dL LDL Cholesterol 90 mg/dL [facility] Comment: Lowest Risk: <100 mg/dL Lower Risk: 100-129 mg/dL Borderline High Risk: 130-159 mg/dL High Risk: 160-189 mg/dL Very High Risk: >pc=812 mg/dL Cholesterol/HDL Ratio 4.7 ratio [facility] Lipid Interpretation See Note [facility] Comment: Lipid management should be guided by a patient? s ASCVD risk, goals and preferences. ACC/AHA Guidelines recommend high intensity statin if clinical ASCVD or LDL greater than or equal to 190 mg/dL. http://Modern MasturFinario.com/ARM-ZJA-Qzifsmikk Adults aged 40-75 with LDL 70-189 mg/dL should have their 10 year ASCVD risk estimated with the ACC/AHA ASCVD risk disbursing agent http://tools.acc.org/VQUUJ-Jdol-Awnsnqdki/ Statin should be discussed if risk greater [...] In Lab Isaac Ledbetter MD CHEMISTRY ORDERABLES [facility] [address] * Basic Metabolic Panel (non-fasting) (07/07/2022 10:53 AM EST) Glucose 93 65 - 199 mg/dL [facility] Comment:Diabetes: >=200 mg/d L plus symptoms Blood Urea Nitrogen 18 10 - 20 mg/dL [facility] Creatinine 0.80 0.80 - 1.50 mg/dL [facility] Sodium 141 135 - 145 mmol/L [facility] Potassium 4.7 3.5 - 5.0 mmol/L [facility] Comment: Please note: ??Patients with WBC >100,000 may have falsely elevated Potassium levels. ??For accurate Potassium quantification in these patients send serum separator tube (gold top) for subsequent determinations. ??Contact the Clinical Chemistry Laboratory if there are any questions. Chloride 103 98 - 107 mmol/L [facility] Carbon Dioxide 27 22 - 31 mmol/L [facility] Anion Gap 11 5 - 15 mmol/L [facility] Calcium 9.4 8.5 - 10.5 mg/dL [facility] Est Glomerular Filtration Rate 91 >=60 mL/min/1. 73 m?? [facility] Comment: This patient's estimated GFR [...] In Lab Isaac Ledbetter MD CHEMISTRY ORDERABLES [facility] [place] [address] * EKG 12 Lead (07/07/2022 9:32 AM EST) Ventricular rate 60 BPM MUSE SYSTEM Atrial Rate 60 BPM MUSE SYSTEM P-R Interval 104 ms MUSE SYSTEM QRS Duration 84 ms MUSE SYSTEM Q-T Interval 478 ms MUSE SYSTEM QTC Calculated (Bezet) 478 ms MUSE SYSTEM Calculated P [place] 34 degrees MUSE SYSTEM Calculated R [place] 48 degrees MUSE SYSTEM Calculated T [place] 161 degrees MUSE SYSTEM INTERPRETATION Sinus rhythm with short ME Possible Left atrial enlargement Minimal voltage criteria for LVH, may be normal variant ( Sokolow-Jiménez ) ST & Marked T wave abnormality consider anterolateral ischemia Prolonged QT Abnormal ECG When compared with ECG of 26-FEB-2022 20:56, ME interval has decreased T wave inversion now evident in Anterolateral leads Confirmed by Karen Marie ([id number]) on 07/08/2022 1:59:50 PM MUSE SYSTEM 07/07/2022 9:32 AM EST 07/08/2022 1:59 PM EST Isaac Ledbetter MD ECG ORDERABLES Performing Organization Address City/[facility]/ZIP Co de Phone Number MUSE SYSTEM documented in this encounter Visit Diagnoses Diagnosis Hypopharyngeal mass Other diseases of pharynx, not elsewhere classified Bradycardia Other specified cardiac dysrhythmias Chest pain, unspecified type History of hyperlipidemia Personal history of other endocrine, metabolic, and immunity disorders documented in this encounter Care Teams Electrical Tech/Project Manager Relationship Specialty Start Date End Date Kadi Lane PA [address] [place] [address] PCP - General Family Medicine 07/28/16 documented as of this encounter
--- OUTSIDE RECORDS SUMMARY | 2024-06-20 01:29 | XMS_ITS | Encounter Summary ---
Author Organization [facility] [place] [address] Care Team Providers Care Ferry Terminal Agent Name Role Phone Kadi Lane Primary Care Provider [phone] Encounter Details Date Type Department Care Team (Latest Contact Info) Description 04/16/2022 Travel Social History Tobacco Use Types Packs/Day [...] AM EST Office Visit Hematology/Oncology at [address] [phone] Lia Barber APRN [address] [place] [address] DR HEMATOLOGY AND ONCOLOGY [place], [place] [address] 06/20/2024 10:30 AM EST Infusion Hematology Oncology at [address] [phone] 07/04/2024 11:00 AM EST Office Visit Hematology/Oncology at [address] [phone] Lia Barber APRN [address] [place] [address] DR HEMATOLOGY AND ONCOLOGY [place], [place] [phone] 07/04/2024 11:30 AM EST Infusion Hematology Oncology at [address] [phone] documented as of this encounter Visit Diagnoses Not on filedocumented in this encounter Care Teams Ferry Terminal Agent Relationship Specialty Start Date End Date Kadi Lane PA [address] [place] [address] PCP - General Family Medicine 07/28/16 documented as of this encounter
--- OUTSIDE RECORDS SUMMARY | 2024-06-20 01:29 | XMS_ITS | Encounter Summary ---
[place] [address] Care Team Providers Care Elevator Troubleshooter Name Role Phone Kadi Lane Primary Care Provider [phone] Encounter Details Date Type Department Care Team (Late st Contact Info) Description 06/24/2022 [place] [phone] Neelam Drummond Social History Tobacco Use Types Packs/Day Years Used Date Smoking Tobacco: Former Cigarettes Q uit: 1987 Smokeless Tobacco: Former Alcohol Use Standard Drinks/Week Comments Not Currently 0 (1 standard drink = 0.6 oz pur e alcohol) Sex and Gender Information Value Date Recorded Sex Assigned at Male 10/05/2023 6:23 PM EDT Gender Identity Male 10/05/2023 6:23 PM EDT Sexual Orientation Straight 10/05/2023 6: 23 PM EDT documented as of this encounter Miscellaneous Notes * Telephone Encounter - Neelam Drummond - 06/24/2022 3:59 PM EST Copied from CRM #[id number]. Topic: Specialty Dept CRMs - Generic Call >> Jun 24, 2022 3:13 PM Jon Ochoa wrote: Specialist: PFT Basic Bundle Relationship (if other than patient-full name): Ari, Thoracic Surgery Reason for Call: Patient has been scheduled for a PFT on 07/02/22 11:30am. documented in this encounter Plan of Treatment Upcoming Encounters Date Type Department Care Team (Late st Contact Info) Description 06/20/2024 10:00 AM EST Office Visit Hematology/Oncology at [address] [phone] [place] [address] 06/20/2024 10:30 AM EST Infusion Hematology Oncology at [address] [phone] 07/04/2024 11:00 AM EST Office Visit Hematology/Oncology at [address] [phone] [place] [address] 07/04/2024 11:30 AM EST Infusion Hematology Oncology at [address] [phone] documented as of this encounter Visit Diagnoses Not on filedocumented in this encounter Care Teams Elevator Troubleshooter Relationship Specialty Start Date End Date Kadi Lane PA [facility] [place] [address] PCP - General Family Medicine 07/28/16 documented as of this encounter
--- OUTSIDE RECORDS SUMMARY | 2024-06-20 01:29 | XMS_ITS | Encounter Summary ---
Author Organization [facility] [place] [address] Care Team Providers Care Newspaper Delivery Counselor Name Role Phone Kadi Lane Primary Care Provider [phone] Encounter Details Date Type Department Care Team (Latest Contact Info) Description 06/25/2022 Travel Social History Tobacco Use Types Packs/Day [...] AM EST Office Visit Hematology/Oncology at [address] [phone] Lia Barber APRN [address] [place] [address] DR HEMATOLOGY AND ONCOLOGY [place], [place] [id number] 06/20/2024 10:30 AM EST Infusion Hematology Oncology at [address] [phone] 07/04/2024 11:00 AM EST Office Visit Hematology/Oncology at [address] [phone] Lia Barber APRN [address] [place] [address] DR HEMATOLOGY AND ONCOLOGY [place], [place] [id number] 07/04/2024 11:30 AM EST Infusion Hematology Oncology at [address] [phone] documented as of this encounter Visit Diagnoses Not on filedocumented in this encounter Care Teams Newspaper Delivery Counselor Relationship Specialty Start Date End Date Kadi Lane PA [address] [place] [address] PCP - General Family Medicine 07/28/16 documented as of this encounter
--- OUTSIDE RECORDS SUMMARY | 2024-06-20 01:29 | XMS_ITS | Encounter Summary ---
[place] [address] Care Team Providers Care Music Theory Professor Name Role Phone Kadi Lane Primary Care Provider [phone] Encounter Details Date Type Department Care Team (Late st Contact Info) Description 03/10/2022 Notes [place] [phone] Jesi Kimble MD [facility] [place] [address] Social History Tobacco Use Types Packs/Day Years [...] as of this encounter Progress Notes * Jesi Kimble MD - 03/10/2022 11:22 AM EDT I called this patient to discuss his benign pathology results. Marco Antonio Xiong is a 76 y.o. 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 Patient had persistent blood tinged secretions and odynophagia postoperatively and presented to ED with failure to thrive. CT demonstrated LEFT hypopharyngeal lesion which was concerning for possible malignant lesion. He was brought to OR with ENT for DL with biopsies on 02/26/22. DIAGNOSIS LEFT pyriform sinus lesions, biopsy: Fragments of squamous mucosa and soft tissue with ulceration, necrotic debris, acute suppurative inflammation and bacterial overgrowth; no evidence of malignancy. He reports his odynophagia has completely resolved since his initial presentation. He is toleratinga regular diet without concern. At this time we are recommending follow up with ENT in the outpatient setting to repeat flexible laryngoscopy to evaluate LEFT pyriform sinus area of concern. Jesi Kimble MD, PGY2 03/12/2022 5:31 PM Pager #[phone] documented in this encounter Plan of Treatment Upcoming Encounters Date Type Department Care Team (Late st Contact Info) Description 06/20/2024 10:00 AM EST Office Visit Hematology/Oncology at [address] [phone] [address]ia Barber [address] HEMATOLOGY [place] [address] 06/20/2024 10:30 AM EST Infusion Hematology Oncology at [address] [phone] 07/04/2024 11:00 AM EST Office Visit Hematology/Oncology at [address] [phone] Lia Barber [address] HEMATOLOGY AND ONCOLOGY [place], [place] [id number] 07/04/2024 11:30 AM EST Infusion Hematology Oncology at [address] [phone] documented as of this encounter Visit Diagnoses Not on filedocumented in this encounter Care Teams Music Theory Professor Relationship Specialty Start Date End Date Kadi Lane [place] [address] PCP - General Family Medicine 07/28/16 documented as of this encounter
--- OUTSIDE RECORDS SUMMARY | 2024-06-20 01:29 | XMS_ITS | Encounter Summary ---
Author Organization [facility] [place] [address] Care Team Providers Care Aix Architect Name Role Phone Kadi Lane Primary Care Provider [phone] Reason for Visit * Reason Comments Hospital Transfer Shortness of Breath * Auth/Cert Specialty Diagnoses / Procedures Referred By Contac t Referred To Contact Diagnoses Hypopharyngeal mass Post Op Tracial Obstruction Charlie Marte MD [facility] [place] [address] [facility] Referral ID Status Reason Start Date Expiration Date Visits Re quested Visits Authorized [id number] 1 1 Encounter Details Date Type Department Care Team (Latest Contact Info) Description 02/25/2022 3:46 PM EDT - 02/27/2022 9:08 AM EDT Hospital Encounter [facility] [place] [address] Pio Larsen MD [facility] EMER[place]Y [place] [address] Charlie Marte MD [facility] [place] [address] Hypopharyngeal mass; ST segment abnormality; EKG abnormalities Discharge Disposition: Home Social History Tobacco Use [...] Sign Reading Time Taken Comments Blood Pressure 145/74 02/27/2022 8:11 AM EDT Pulse 53 02/27/2022 1:39 AM EDT Temperature 37 ??C (98.6 ??F) 02/27/2022 8:11 AM EDT Respiratory Rate 21 02/27/2022 5:45 AM EDT Oxygen Saturation 95% 02/27/2022 5:45 AM EDT Inhaled Oxygen Concentration - - [...] much today. Presented to the ED at [place]. As he had changes in his breathing [...] (GENERIC) CLINICAL HISTORY: Lung nodule, > 8mm [place] roboticassisted bronchoscopy protocol CT chest TECHNIQUE: CT of the chest without contrast. Coronal and sagittal reformatted images were generated. COMPARISON: PET/CT 01/30/2022 FINDINGS: Limitations: Lack of intravenous contrast limits evaluation of the visceral organs, mediastinum, and vascular structures. Slp Images: Noncontributory. Pulmonary parenchyma: 4.2 cm pleural-based [...] who have questions please contact the health home health care respiratory therapist that requested your imaging first. Electronically signed by: Bipin Christensen DO, DH R [facility] ([phone]), at 02/23/2022 9:07 AM CA [place] PET CT Skull Base to Mid-thigh Result Date: 01/30/2022 EXAMINATION: CA LACEY PET CT SKULL BASE TO MID-THIGH CLINICAL HISTORY: Presence of underlying mass on CT Chest not excluded; mild ileocecal wall thickening and sclerotic hip bone; ? Paget's disease; asbestos related chest disease, abnormal weight loss TECHNIQUE: Following IV injection of 18-fluo ka-6-fviteoyfwioh (FDG) a standard uptake of approximately 60 [...] who have questions please contact the health home health care respiratory therapist that requested your imaging first. Electronically signed by: Neel Foster MD, [facility] ([phone]), at 24:55 PM XR Fluoro No Rad [...] who have questions please contact the health home health care respiratory therapist that requested your imaging first. Film Library- [...] who have questions please contact the health home health care respiratory therapist that requested your imaging first. Electronically signed by: Bipin Christensen DO, [facility] ([phone]), at 02/23/2022 11:55 AM Film Library- Storage Only CT Neck Result Date: 02/25/2022 This exam is auto-finalizing. It's purpose is for storage only. Request For 2nd Read CT Neck Result Date: 02/26/2022 EXAMINATION: REQUEST FOR 2ND READ CT NECK CLINICAL HISTORY: upper airway obstruction; Sending Institution [facility]; Date of exam [id number]; I believe a [...] who have questions please contact the health home health care respiratory therapist that requested your imaging first. Endoscopy Result Date: 02/26/2022 Photographs - Images [...] -You can reach the ENT clinic at [phone] for appointment questions. -The ENT triage nurse is available at [phone] -For urgent issues during evenings (5 PM - 7 AM) and weekends the ENT resident director cloud transformation can be reached through the main hospital laundry operator wash room at [phone] Follow Up: You will need to follow [...] AM Landen Goodman MD Thoracic Surgery at [facility] Arrive at: Senior Mainframe Developer Area [phone] General Instructions None __ Your Medications New [...] Time Provider Department Center 03/06/2022 8:20 AM [facility] CT 2 [facility] RAD CT [facility] Rad 03/06/2022 9:00 AM [facility] AIC MRI 1 Rad AIC Res [facility] Rad 03/06/2022 11:00 AM Landen Goodman MD [address] Outpatient Services/Studies: No discharge procedures on file. Primary Care Doctor: ADRIANO Sheriff [phone] Signed: Alexy Jaramillo MD 02/27/2022 documented in [...] -You can reach the ENT clinic at [phone] for appointment questions. -The ENT triage nurse is available at [phone] -For urgent issues during evenings (5 PM - 7 AM) and weekends the ENT resident director cloud transformation can be reached through the main hospital laundry operator wash room at [phone] Follow Up: You will need to follow [...] AM Landen Goodman MD Thoracic Surgery at [facility] Arrive at: Senior Mainframe Developer Area 3K [phone] documented in this encounter Medications at Time [...] AM EDT D/C planning: Team: ENT Pager: [phone] Pt to d/c home via private vehicle. Pt/team feel no d/c needs identified at this time. Pt is aware of d/c plan. Magaly Reveles MSN-Ed, RN ACM bag filler machine operator Office of Care Management Pager #[phone] * Wicho Avalos RN - 02/26/2022 10:53 [...] Surveillance: Bed locked in low position, call kimble within reach, purposeful hourly rounding, clutter free [...] PGY1 02/26/22 7:15 AM ENT Team Pager: [phone] * Ritika Oliver RN - 02/26/2022 4:16 AM EDTSummary: Nursing Patient admit to [facility] at 0200 from ED. Patient ambulated x1 standby assist from the stretcher to bed. Bhavna present, per patient is able to understand medical information and does not need an box tender, patient is primarily Slovak speaking. Lungs clear and diminished R>L, received [...] to the ED as a transfer from [facility] for evaluation by ENT and interventional pulmonology. [...] Surgical History: Procedure Laterality Date ??? PRO [facility] EBUS GUIDED SAMPL 1/2 NODE STATION/STRUX N/A 02/23/2022 BRONCH, W ENDOBRONCHIAL ULTRASOUND (EBUS) GUIDED SAMPLING, 1/2 NODES (WRVU 4.71) performed by Bipin Moseley MD at [facility] MAIN OR ??? PRO [facility] EBUS DX/TX INTERVENTION PERPH LES N/A 02/23/2022 BRONCH, W EBUS DURING INTERVENTION FOR PERIPH LESION (WRVU 1.4) performed by Bipin Moseley MD at [facility] MAIN OR ??? PRO BRONCHOSCOPY RIGID FLEX W COMPUTER ASSIST IMG NAVIGATION N/A 02/23/2022 BRONCHOSCOPY,RIGID OR FLEX,WITH IMAGE GUIDANCE ( ROBOT / MONARCH ) performed by Bipin Moseley MD at [facility] MAIN OR ??? PRO BRONCHOSCOPY, DIAGNOSTIC W LAVAGE N/A 02/23/2022 BRONCHOSCOPY, RIGID OR FLEXIBLE, WITH BRONCHIAL ALVEOLAR LAVAGE (WRVU 2.88) performed by Bipin Moseley MD at [facility] MAIN OR ??? PRO BRONCHOSCOPY, TRANSBRON ASPIR BX N/A 02/23/2022 BRONCHOSCOPY W/TRANSBRONCHIAL NEEDLE ASPIRATION BX,FLEXIBLE (WRVU 4) performed by Bipin Moseley MD at [facility] MAIN OR ??? PRO BRONCHOSCOPY, TRANSBRONCH BIOPSY N/A 02/23/2022 BRONCHOSCOPY (FLEXIBLE OR RIGID) W\TRANSBRONC BX (WRVU 3.8) performed by Bipin Recinos MDat [facility] MAIN OR ??? PRO BRONCHOSCOPY, TREAT ASPIR PULM TREE N/A 02/23/2022 BRONCHOSCOPY, W/THERAPEUTIC ASPIRATION OF TRACHEOBRONCHIAL TREE (WRVU 3.16) performed by Bipin Moseley MD at [facility] MAIN OR ??? PRO THORACENTESIS NEEDLE/CATH PLEURA W/IMAGING N/A 02/23/2022 THORACENTESIS, NEEDLE OR CATHETER; WITH IMAGE GUIDANCE (WRVU 2.27) performed by Bipin Moseley MD at [facility] MAIN OR Social History Tobacco Use ??? Smoking status: Former Smoker Types: Cigarettes Quit date: 1987 Years since quittin.8 ??? Smokeless tobacco: Former [...] ENT service for biopsy and further care. Poi Larsen MD 02/25/222024 * Katt Wiseman RN [...] wbc, hgb, hct plt Recent Labs 02/25/22 1656 02/23/22 0736 WBC 7.4 5.4 HGB 12.3* 12.4* HCT 35.8* 36.9* PLATELET 248 247 Last 3 Lytes Recent Labs 02/25/22 1836 02/25/22165522 0736 NA -- 142 142 K 4.2 [...] who have questions please contact the health home health care respiratory therapist that requested your imaging first. Assessment and [...] the patient. Abel Sellers MD Resident 02/25/22 9847 Associated attestation - Pio Larsen MD - [...] y.o. who I accepted in transfer from [facility] The patient will be evaluated in the [...] Marte MD - 02/26/2022 1:54 PM EDT [facility] Operative Note Patient Name: Marco Antonio Xiong : [id number] MR#: [id number] Case Date: 02/26/2022 Preop Diagnosis: LEFT pyriform [...] and significant odynophagia postoperatively and presented to [facility] with FTT. CT (wo contrast) demonstrated LEFT [...] Kimble MD, PGY2 02/26/2022 1:57 PM Pager #[phone] Attestation: Case Date: 02/26/2022 I was present and I participated during the entire procedure (does not need to include opening and closing). CHARLIE MARTE MD 02/27/2022 * Consult Note - Chucho Nazario MD - 02/26/2022 8:29 AM EDT [facility] Acute Care Surgery Consult Note Consultation Requested by: Charlie Marte MD Consult Reason: PEG due to limited pO intake from progressive odynophagia. HPI: Marco Antonio Xiong is a 76 y.o. male w/ a hx of hyperlipidemia, diverticulosis, history of gastritis, nephrolithiasis, left inguinal hernia, and a CVA in 2006 (on aspirin). He has a 95-svsi-myli history and remote history of asbestos exposure. [...] Surgical History: Procedure Laterality Date ??? PRO [facility] EBUS GUIDED SAMPL 1/2 NODE STATION/STRUX N/A 02/23/2022 BRONCH, W ENDOBRONCHIAL ULTRASOUND (EBUS) GUIDED SAMPLING, 1/2 NODES (WRVU 4.71) performed by Bipin Moseley MD at [facility] MAIN OR ??? PRO [facility] EBUS DX/TX INTERVENTION PERPH LES N/A 02/23/2022 BRONCH, W EBUS DURING INTERVENTION FOR PERIPH LESION (WRVU 1.4) performed by Bipin Moseley MD at [facility] MAIN OR ??? PRO BRONCHOSCOPY RIGID FLEX W COMPUTER ASSIST IMG NAVIGATION N/A 02/23/2022 BRONCHOSCOPY,RIGID OR FLEX,WITH IMAGE GUIDANCE ( ROBOT / MONARCH ) performed by Bipin Moseley MD at [facility] MAIN OR ??? PRO BRONCHOSCOPY, DIAGNOSTIC W LAVAGE N/A 02/23/2022 BRONCHOSCOPY, RIGID OR FLEXIBLE, WITH BRONCHIAL ALVEOLAR LAVAGE (WRVU 2.88) performed by Bipin Moseley MD at [facility] MAIN OR ??? PRO BRONCHOSCOPY, TRANSBRON ASPIR BX N/A 02/23/2022 BRONCHOSCOPY W/TRANSBRONCHIAL NEEDLE ASPIRATION BX,FLEXIBLE (WRVU 4) performed by Bipin Moseley MD at [facility] MAIN OR ??? PRO BRONCHOSCOPY, TRANSBRONCH BIOPSY N/A 02/23/2022 BRONCHOSCOPY (FLEXIBLE OR RIGID) W\TRANSBRONC BX (WRVU 3.8) performed by Bipin Recinos MDat [facility] MAIN OR ??? PRO BRONCHOSCOPY, TREAT ASPIR PULM TREE N/A 02/23/2022 BRONCHOSCOPY, W/THERAPEUTIC ASPIRATION OF TRACHEOBRONCHIAL TREE (WRVU 3.16) performed by Bipin Moseley MD at [facility] MAIN OR ??? PRO THORACENTESIS NEEDLE/CATH PLEURA W/IMAGING N/A 02/23/2022 THORACENTESIS, NEEDLE OR CATHETER; WITH IMAGE GUIDANCE (WRVU 2.27) performed by Bipin Moseley MD at [facility] MAIN OR MEDICATIONS: No current facility-administered medications [...] admission. Case discussed with Carter Rao MD office machine service supervisor. Chucho Nazario MD 02/26/2022 General Surgery [phone] [...] from the original note were not included. [facility] Otolaryngology - Head & Neck Surgery Consult [...] much today. Presented to the ED at [place]. As he had changes in his breathing there, they put him on oxygen. No trismus. No numbness. No swelling or lumps in the neck. No significant ETOH history. No difficulty with breathing, unless exerting himself. Review of systems: Except as noted in the history above, review of systems is negative for WOOD BUFFER, bone, pulmonary, cardiac, GI, , extremity, neurologic, endocrine, skin, constitutional, emotional, or functional problems. Past medical history: No past medical history on file. There are no problems to display for this patient. Social history: Lives in : [place] [address]* Family history: No family history on file. [...] history; history and asbestos exposure, working in [employer] for many years; who presents with odynophagia, [...] and weekend issues page the ENT resident director cloud transformation. oMrgan Black PA-C Pager: [phone] documented in this encounter Plan of Treatment Upcoming Encounters Date Type Department Care Team (Late st Contact Info) Description 06/20/2024 10:00 AM EST Office Visit Hematology/Oncology at [address] [phone] [place] [address] 06/20/2024 10:30 AM EST Infusion Hematology Oncology at [address] [phone] 07/04/2024 11:00 AM EST Office Visit Hematology/Oncology at [address] [phone] HEMATOLOGY AND ONCOLOGY [place], [place] [phone] 07/04/2024 11:30 AM EST Infusion Hematology Oncology at [address] [phone] documented as of this encounter Procedures Procedure [...] 02/26/2022 1:43 PM EDT Laryngoscopy, Direct, Diagnostic (63433) 02/26/2022 1:06 PM EDT LEFT hypopharyngeal mass [...] (Bezet) 439 ms MUSE SYSTEM Calculated P [place] 52 degrees MUSE SYSTEM Calculated R [place] 56 degrees MUSE SYSTEM Calculated T [place] 79 degrees MUSE SYSTEM INTERPRETATION Sinus [...] (ABNORMAL) Differential, Automated (02/26/2022 8:51 PM EDT) Pathologist [facility] Neutrophil % 86.1 % [facility] Neutrophil Absolute 6.62(H) 1.70 - 6.10 x10(3)/mc L [facility] Lymph % 5.2 % [facility] Lymphocytes Abs 0.4(L) 0.9 - 3.2 x10(3)/mc L [facility] Monocyte % 8.2 % [facility] Monocyte Abs 0.6 0.3 - 0.9 x10(3)/mc L [facility] Eos % 0.0 % [facility] Eosinophils Abs 0.0 0.0 - 0.4 x10(3)/mc L [facility] Basophil % 0.1 % [facility] Baso Absolute 0.0 0.0 - 0.1 x10(3)/mc L [facility] Immature Gran % 0.40 % [facility] Comment: Immature granulocytes(IG's)percentage and absolute count will include metamyelocytes, myelocytes, and promyelocytes. Blood smears from CBCs yielding IG's will be scanned manually for concordance. If this scan disagrees with the automated IG or if promyelocytes are noted, a manual differential will be performed. Immature Gran Absolute 0.03 0.00 - 0.04 x10(3)/ L [facility] Blood 02/26/2022 8:51 PM EDT 02/26/2022 8:56 PM EDT Narrative Resulting Agency Comment Spec In Lab Mary Perkins MD HEMATOLOGY ORDERABLE S [facility] [place] [address] * (ABNORMAL) Hemogram (02/26/2022 8:51 PM EDT) White Blood Cell 7.7 4.0 - 9.5 x10(3)/[facility] Red Blood Cell 3.44(L) 4.58 - 5.54 x10(6)/ L [facility] Hemoglobin 11.5(L) 13.7 - 16.5 g/dL [facility] Hematocrit 33.3(L) 40.5 - 48.5 % [facility] Mean Cell Volume 96.8(H) 82.9 - 93.1 [facility] Mean Cell Hemoglobin 33.4(H) 27.5 - 32.[address] [facility] Mean Cell Hemoglobin Concentration 34.5 32.0 - 35.7 g/dL [facility] Platelet 294 145 - 357 x10(3)/ L [facility] RDW Standard Deviation 43.8 36.0 - 45.0 [facility] RDW coefficient of variation 12.3 11.4 - 13.8 % [facility] Mean Platelet Volume 9.4 7.6 - 12.9 [facility] NRBC% auto 0.0 % [facility] NRBC Absolute 0.000 0.000 - 0.000 x10(3)/ L [facility] Blood 02/26/2022 8:51 PM EDT 02/26/2022 8:56 PM EDT Narrative Resulting Agency Comment Spec In Lab Mary Perkins MD HEMATOLOGY ORDERABLE S Performing Organization Address [facility] Co de Phone Number [facility] [place] [address] * Phosphorus (02/26/2022 8:51 PM EDT) Phosphorus 2.7 2.5 - 4.5 mg/dL [facility] Blood 02/26/2022 8:51 PM EDT 02/26/2022 8:56 PM EDT Narrative Resulting Agency Comment Spec In Lab Charlie Marte MD CHEMISTRY ORDERABL ES Performing Organization Address [facility] Phone Number [facility] [place] [address] * Magnesium (02/26/2022 8:51 PM EDT) Magnesium 0.82 0.69 - 1.07 mmol/L [facility] Blood 02/26/2022 8:51 PM EDT 02/26/2022 8:56 PM EDT Narrative Resulting Agency Comment Spec In Lab Charlie Marte MD CHEMISTRY ORDERABL ES Performing Organization Address [facility] de Phone Number [facility] [place] [address] * (ABNORMAL) Basic Metabolic Panel (non-fasting) (02/26/2022 8:51 PM EDT) Glucose 167 65 - 199 mg/dL [facility] Comment:Diabetes: >=200 mg/d L plus symptoms Blood Urea Nitrogen 32(H) 10 - 20 mg/dL [facility] Creatinine 0.96 0.80 - 1.50 mg/dL [facility] Sodium 142 135 - 145 mmol/L [facility] Potassium 4.4 3.5 - 5.0 mmol/L [facility] Comment: Please note: ??Patients with WBC >100,000 may have falsely elevated Potassium levels. ??For accurate Potassium quantification in these patients send serum separator tube (gold top) for subsequent determinations. ??Contact the Clinical Chemistry Laboratory if there are any questions. Chloride 106 98 - 107 mmol/L [facility] Carbon Dioxide 25 22 - 31 mmol/L [facility] Anion Gap 11 5 - 15 mmol/L [facility] Calcium 8.8 8.5 - 10.5 mg/dL [facility] Est Glomerular Filtration Rate 81 >=60 mL/min/1. 73 m?? [facility] Comment: This patient's estimated GFR [...] Lab Charlie Marte MD CHEMISTRY ORDERABL ES [facility] [place] [address] * Specimen to Pathology (02/26/2022 1:44 PM EDT) AP Specimen 02/26/2022 1:44 PM EDT 02/26/2022 1:[address] [facility] - 02/26/2022 1:44 PM EDT Specimen requisition ordered. ??Separate Pathology report to follow Charlie Marte MD PATHOLOGY/CYTOLOGY ORDERABLES Performing Organization Address [facility] Co de Phone Number [facility] [place] [address] * Surgical Pathology Report (02/26/2022 1:43 PM EDT) Final Diagnosis [id number] ? Location: [facility]; [facility] ([place]); The signing pathologist has (i) examined the relevant preparation(s) for the specimen(s) and (ii) rendered or confirmed the diagnosis(es). . ?Surgical Pathology DIAGNOSIS LEFT pyriform sinus lesions, biopsy: Fragments of squamous mucosa and soft tissue with ulceration, necrotic debris, acute suppurative inflammation and bacterial overgrowth; no evidence of malignancy. Electronically signed by: ?Tommy EMERSON, Veronique Lincoln Verified: ??03/09/2022 15:23 ??Pathologist Performed at: ??-[facility] Dept. of Pathology, [place], [place] SPECIMEN(S) SUBMITTED A - LEFT pyriform sinus lesions, excision (1) CLINICAL INFORMATION Left hypopharyngeal mass SPECIMEN PROCESSING A - Labeled/Fixative: Left pyriform sinus lesions, saline. Quantity/Size: Multiple, ranging from 0.3-0.9 cm. Tissue Description: Soft, red tissues. Sections/Processi ng: Submitted en toto ??in 3 cassettes labeled A1-A3. ??sns 03/09/2022 3:[address] [facility] BIOPSY SPECIMEN / Unknown 02/26/2022 1:43 PM EDT 02/26/2022 1:43 PM EDT Charlie Marte MD PATHOLOGY/CYTOLOGY ORDERABLES Performing Organization Address [facility]/ZIP Co de Phone Number [facility] [place] [address] * (ABNORMAL) Differential, Automated (02/26/2022 4:44 AM EDT) Neutrophil % 86.5 % [facility] Neutrophil Absolute 6.72(H) 1.70 - 6.10 x10(3)/ L [facility] Lymph % 6.1 % [facility] Lymphocytes Abs 0.5(L) 0.9 - 3.2 x10(3)/[facility] Monocyte % 7.0 % [facility] Monocyte Abs 0.5 0.3 - 0.9 x10(3)/[facility] Eos % 0.0 % [facility] Eosinophils Abs 0.0 0.0 - 0.4 x10(3)/[facility] Basophil % 0.3 % [facility] Baso Absolute 0.0 0.0 - 0.1 x10(3)/[facility] Immature Gran % 0.10 % [facility] Comment: Immature granulocytes(IG's)percentage and absolute count will include metamyelocytes, myelocytes, and promyelocytes. Blood smears from CBCs yielding IG's will be scanned manually for concordance. If this scan disagrees with the automated IG or if promyelocytes are noted, a manual differential will be performed. Immature Gran Absolute 0.01 0.00 - 0.04 x10(3)/[facility] Blood 02/26/2022 4:44 AM EDT 02/26/2022 5:01 AM EDT Narrative Resulting Agency Comment Spec In Lab Jesi Kimble MD HEMATOLOGY ORDERABLE S [facility] [place] [address] * (ABNORMAL) Hemogram (02/26/2022 4:44 AM EDT) White Blood Cell 7.8 4.0 - 9.5 x10(3)/ L [facility] Red Blood Cell 3.55(L) 4.58 - 5.54 x10(6)/ L [facility] Hemoglobin 11.8(L) 13.7 - 16.5 g/dL [facility] Hematocrit 33.8(L) 40.5 - 48.5 % [facility] Mean Cell Volume 95.2(H) 82.9 - 93.[address] [facility] Mean Cell Hemoglobin 33.2(H) 27.5 - 32.[address] [facility] Mean Cell Hemoglobin Concentration 34.9 32.0 - 35.7 g/dL [facility] Platelet 256 145 - 357 x10(3)/[facility] RDW Standard Deviation 42.7 36.0 - 45.0 [facility] RDW coefficient of variation 12.2 11.4 - 13.8 % [facility] Mean Platelet Volume 9.1 7.6 - 12.9 [facility] NRBC% auto 0.0 % [facility] NRBC Absolute 0.000 0.000 - 0.000 x10(3)/[facility] Blood 02/26/2022 4:44 AM EDT 02/26/2022 5:01 AM EDT Narrative Resulting Agency Comment Spec In Lab Jesi Kimble MD HEMATOLOGY ORDERABLE S [facility] [place] [address] * (ABNORMAL) Prealbumin (02/26/2022 4:44 AM EDT) Prealbumin 11(L) 20 - 40 mg/dL [facility] Comment: Prealbumin levels are generally lower in the pediatric population; adult concentrations are usually attained near puberty. Blood 02/26/2022 4:44 AM EDT 02/26/2022 5:01 AM EDT Narrative Resulting Agency Comment Spec In Lab Charlie Marte MD CHEMISTRY ORDERABL ES Performing Organization Address [facility] Co de Phone Number [facility] [place] [address] * Phosphorus (02/26/2022 4:44 AM EDT) Phosphorus 3.6 2.5 - 4.5 mg/dL [facility] Blood 02/26/2022 4:44 AM EDT 02/26/2022 5:01 AM EDT Narrative Resulting Agency Comment Spec In Lab Charlie Marte MD CHEMISTRY ORDERABL ES Performing Organization Address [facility] de Phone Number [facility] [place] [address] * Magnesium (02/26/2022 4:44 AM EDT) Magnesium 0.83 0.69 - 1.07 mmol/L [facility] Blood 02/26/2022 4:44 AM EDT 02/26/2022 5:01 AM EDT Narrative Resulting Agency Comment Spec In Lab Charlie Marte MD CHEMISTRY ORDERABL ES Performing Organization Address [facility] Co de Phone Number [facility] [place] [address] * (ABNORMAL) Basic Metabolic Panel (non-fasting) (02/26/2022 4:44 AM EDT) Glucose 148 65 - 199 mg/dL [facility] Comment:Diabetes: >=200 mg/d L plus symptoms Blood Urea Nitrogen 27(H) 10 - 20 mg/dL [facility] Creatinine 0.80 0.80 - 1.50 mg/dL [facility] Sodium 140 135 - 145 mmol/L [facility] Potassium 4.4 3.5 - 5.0 mmol/L [facility] Comment: Please note: ??Patients with WBC >100,000 may have falsely elevated Potassium levels. ??For accurate Potassium quantification in these patients send serum separator tube (gold top) for subsequent determinations. ??Contact the Clinical Chemistry Laboratory if there are any questions. Chloride 103 98 - 107 mmol/L [facility] Carbon Dioxide 27 22 - 31 mmol/L [facility] Anion Gap 10 5 - 15 mmol/L [facility] Calcium 9.1 8.5 - 10.5 mg/dL [facility] Est Glomerular Filtration Rate 91 >=60 mL/min/1. 73 m?? [facility] Comment: This patient's estimated GFR [...] MD CHEMISTRY ORDERABL ES Performing Organization Address City/State/[facility] Co de Phone Number [facility] [place] [address] * Potassium (02/25/2022 6:36 PM EDT) Potassium 4.2 3.5 - 5.0 mmol/L [facility] Comment: Please note: ??Patients with WBC [...] MD CHEMISTRY ORDERABL ES Performing Organization Address City/[facility]/ZIP Co de Phone Number [facility] [place] [address] * Urine Hold (02/25/2022 5:54 PM EDT) Hold, Urine Sample in lab. [facility] Urine 02/25/2022 5:54 PM EDT 02/25/2022 6:02 PM EDT Pio Larsen MD URINE ORDERABLES Performing Organization Address [facility] Co de Phone Number [facility] [place] [address] * (ABNORMAL) Differential, Automated (02/25/2022 4:56 PM EDT) Neutrophil % 93.5 % [facility] Neutrophil Absolute 6.95(H) 1.70 - 6.10 x10(3)/mc L [facility] Lymph % 4.2 % [facility] Lymphocytes Abs 0.3(L) 0.9 - 3.2 x10(3)/mc L [facility] Monocyte % 1.9 % [facility] Monocyte Abs 0.1(L) 0.3 - 0.9 x10(3)/mc L [facility] Eos % 0.0 % [facility] Eosinophils Abs 0.0 0.0 - 0.4 x10(3)/mc L [facility] Basophil % 0.1 % [facility] Baso Absolute 0.0 0.0 - 0.1 x10(3)/mc L [facility] Immature Gran % 0.30 % [facility] Comment: Immature granulocytes(IG's)percentage and absolute count will include metamyelocytes, myelocytes, and promyelocytes. Blood smears from CBCs yielding IG's will be scanned manually for concordance. If this scan disagrees with the automated IG or if promyelocytes are noted, a manual differential will be performed. Immature Gran Absolute 0.02 0.00 - 0.04 x10(3)/mc L [facility] Blood 02/25/2022 4:56 PM EDT 02/25/2022 5:17 PM EDT Narrative Resulting Agency Comment Spec In Lab Abel Sellers MD HEMATOLOGY OR DERABLES [facility] [place] [address] * (ABNORMAL) Hemogram (02/25/2022 4:56 PM EDT) White Blood Cell 7.4 4.0 - 9.5 x10(3)/mc L [facility] Red Blood Cell 3.69(L) 4.58 - 5.54 x10(6)/mc L [facility] Hemoglobin 12.3(L) 13.7 - 16.5 g/dL [facility] Hematocrit 35.8(L) 40.5 - 48.5 % [facility] Mean Cell Volume 97.0(H) 82.9 - 93.[address] [facility] Mean Cell Hemoglobin 33.3(H) 27.5 - 32.[address] [facility] Mean Cell Hemoglobin Concentration 34.4 32.0 - 35.7 g/dL [facility] Platelet 248 145 - 357 x10(3)/mc L [facility] RDW Standard Deviation 43.8 36.0 - 45.[address] [facility] RDW coefficient of variation 12.3 11.4 - 13.8 % [facility] Mean Platelet Volume 9.3 7.6 - 12.[address] [facility] NRBC% auto 0.0 % [facility] NRBC Absolute 0.000 0.000 - 0.000 x10(3)/mc L [facility] Blood 02/25/2022 4:56 PM EDT 02/25/2022 5:17 PM EDT Narrative Resulting Agency Comment Spec In Lab Abel Sellers MD HEMATOLOGY OR DERABLES [facility] [place] [address] * (ABNORMAL) Basic Metabolic Panel (non-fasting) (02/25/2022 4:56 PM EDT) Glucose 131 65 - 199 mg/dL [facility] Comment:Diabetes: >=200 mg/d L plus symptoms Blood Urea Nitrogen 22(H) 10 - 20 mg/dL [facility] Creatinine 0.76(L) 0.80 - 1.50 mg/dL [facility] Sodium 142 135 - 145 mmol/L [facility] Potassium Not Perf 3.5 - 5.0 [facility] Comment: Unable to quantitate due to [...] questions. Chloride 103 98 - 107 mmol/L [facility] Carbon Dioxide 26 22 - 31 mmol/L [facility] Anion Gap 13 5 - 15 mmol/L [facility] Calcium 9.1 8.5 - 10.5 mg/dL [facility] Est Glomerular Filtration Rate 92 >=60 mL/min/1. 73 m?? [facility] Comment: This patient's estimated GFR [...] Lab Pio Larsen MD CHEMISTRY ORDERABL ES [facility] [place] [address] * XR Chest PA & Lateral (Generic) [...] who have questions please contact the health home health care respiratory therapist that requested your imaging first. ? Narrative [...] patients who have questions please contactthe health home health care respiratory therapist that requested your imaging first. Pio Larsen MD IMG DX ORDERABLES documented in this encounter Visit Diagnoses Diagnosis Hypopharyngeal mass Other diseases of pharynx, not elsewhere classified ST segment abnormality Nonspecific abnormal electrocardiogram (ECG) (EKG) EKG abnormalities Nonspecific abnormal electrocardiogram (ECG) (EKG) Hypopharyngeal mass Other diseases of pharynx, not elsewhere classified documented in this encounter Admitting Diagnoses Diagnosis Hypopharyngeal [...] 2200, Last dose on Wed02/26/22 at 1400 Given 02/26/2022 5:52 AM EDT 8 mg Given 02/25/2022 10:56 PM EDT 8 mg dexAMETHasone (PF) (Decadron) (10 mg/mL) injection 8 mg 8 mg, Intravenous, EVERY 8 HOURS SCHEDULED, 3 doses, First dose (after last modification) on Wed02/26/22 at 1800, Last dose on Wed02/27/22 at 1400 Given 02/27/2022 5:47 AM EDT 8 mg Given 02/26/2022 5:28 PM EDT 8 mg ibuprofen (Motrin) tablet 400 mg 400 mg, [...] , Routine 2301 (Given - Provider: Mela Fragoso, SOREN) 0600 (Not Given - Provider: Ritika Oliver, SOREN - Reason: Patient Unable - Comment: Patient unable to swallow)1200 (Not Given - Provider: Georgi Dior RN - Reason: NPO)1306 (JUL Hold - Provider: Admin Adt - Reason: Transfer to a Procedural area)1504 (JUL Unhold - Provider: Admin Adt)1728 (Given - Provider: Georgi Dior, SOREN) 0053 (Not Given - Provider: Wicho Avalos RN - Reason: Patient/family refused)0556 (Given - Provider: Wicho Avalos RN) ampicillin-sulbactam (Unasyn) 3 g vial attach to [...] Wicho Avalos, SOREN)2237 (Stopped - Provider: Wicho Avalos RN) 0559 (New Bag - Provider: Wicho Avalos RN)0629 (Stopped - Provider: Wicho Avalos RN) dexAMETHasone (PF) (Decadron) (10 mg/mL) injection 8 mg (CANCELED) 8 mg, Intravenous, EVERY 8 HOURS SCHEDULED, 3 doses, First dose on Wed02/25/22 at 2200, Last dose on Wed02/26/22 at 1400 2256 (Given - Provider: Mela Fragoso, SOREN) 0552 (Given - Provider: Ritika Oliver, SOREN) dexAMETHasone (PF) (Decadron) (10 mg/mL) injection [...] swallow pills)1000 (Not Given - Provider: Georgi Dior RN [...] Wed02/25/22 at 1848, Until Wed02/27/22 at 1114 2020 (New Bag - Provider: Mela Fragoso RN) 0338 (Rate/Dose Verify - Provider: Ritika Oliver RN)0834 (Rate/Dose Change - Provider: Georgi Dior, SOREN)1306 (MAR Hold - Provider: Admin Adt - Reason: Transfer to a Procedural area)1504 (MAR Unhold - Provider: Admin Adt)1520 (Restarted - Provider: Georgi Dior, SOREN)2003 (New Bag - Provider: Wicho Avalos, SOREN) 1114 (Due: Stopped) PRN Medication Order 02/25/2022 02/26/2022 02/27/2022 EPINEPHrine (Adrenalin) nasal solution (CANCELED) ONCE PRN, Starting on Wed02/26/22 at 1331, Until Wed02/27/22 at 1114, Intra-Operative (Intra-Procedure), Routine 1331 (Given - Provider: Jalil Marte MD - Comment: Used for hemostasis) ipratropium-albuteroL (Duoneb) 0.5 mg-3 mg(2.5 mg base)/3 mL nebulizer solution 3 mL 3 mL, Nebulization, EVERY 4 HOURS PRN, Starting on Wed02/25/22 at 1844, Until Wed02/27/22 at 1114, Wheezing, Routine 1306 (MAR Hold - Provider: Admin Adt - Reason: Transfer to a Procedural area)1504 (MAR Unhold - Provider: Admin Adt) oxyCODONE (Roxicodone) tablet 5-10 mg 5-10 mg, Oral, EVERY 3 HOURS PRN, Starting on Wed02/25/22 at 1844, Until Wed02/27/22 at 1114, Pain, Give 5 mg for pain 1-5; Give 10 mg for pain 6-10, Routine 1306 (MAR Hold - Provider: Admin Adt - Reason: Transfer to a Procedural area)1504 (MAR Unhold - Provider: Admin Adt) documented in this encounter Care Teams [employer] Relationship Specialty Start Date End Date Kadi [place] [address] PCP - General Family Medicine 07/28/16 documented as of this encounter
--- OUTSIDE RECORDS SUMMARY | 2024-06-20 01:29 | XMS_ITS | Encounter Summary ---
[place] [address] Care Team Providers Care Crown Attacher Name Role Phone Kadi Lane Primary Care Provider [phone] Reason for Referral * Diagnostic Test (Routine) - Closed Specialty Diagnoses / Procedures Referred By Jorge Luis t Referred To Contact Radiology Diagnoses Pulmonary mass Procedures NM PET CT Skull Base to Mid-thigh Landen Goodman MD [address] [place] [address] [place] [address] Referral ID Status Reason Start Date Expiration Date V isits Requested Visits Authorized [id number] Closed Specialty Service Requested 06/24/2022 12/23/2023 1 1 Reason for Visit * Reason Comments Follow-up Encounter Details Date Type Department Care Team (Latest Contact Info) Description 06/19/2022 12:45 PM EST Office [place] [phone] Landen Goodman MD [address] [place] [phone] (work) Pre-operative cardiovascular examination, high risk surgery; Pulmonary mass Social History Tobacco Use Types [...] Sign Reading Time Taken Comments Blood Pressure 154/64 06/19/2022 12:19 PM EST Pulse 63 06/19/2022 12:19 PM EST Temperature 35.6 ??C (96.1 ??F) 06/19/2022 12:[address] Respiratory Rate 18 06/19/2022 12:19 PM EST Oxygen Saturation 98% 06/19/2022 12:19 PM EST Inhaled Oxygen Concentration - - Weight 65.4 kg (144 lb 2.9 oz) 06/19/2022 12:19 PM EST Height 166.9 cm (5' 5.71) 06/19/2022 12:[address] Body Mass Index 23.48 06/19/2022 12:19 PM EST documented in this encounter Patient Instructions * Patient Instructions* Mary Douglas RN - 06/19/2022 12:45 PM EST Thank you for visiting Dr. Goodman in clinic 06/23/22 Dr. Goodman would like to see you back in clinic in with a recent PET scan, Pulmonary Function Test,Nuclear Medicine Stress Test and Transthoracic Echocardiogram. You will check in for you PET scan at [facility]. Please refrain from eating or drinking anything except water for 6 hours before. You may take your oral diabetic medications, but PLEASE do not take your long acting insulin injection for 6 hours prior to your PET scan. Please do not eat any GUM or MINTS or use toothpaste either. Please do not perform any heavy exercise such as jogging, skiing, tennis, etc. for at least 12 hours prior If you do eat or drink anything, your test will be canceled and rescheduled for a later date. You will check in at [facility] for your Pulmonary Function Testing. This testing will take less than one hour. Pulmonary function tests (PFTs) are noninvasive tests that show how well the lungs are working. The tests measure lung volume, capacity, rates of flow, and gas exchange. This information can help your healthcare provider diagnose and decide the treatment of certain lung disorders. You are scheduled for a radionuclide Stress Test and it is very important for you to follow these instructions to prepare for this test. *Do not consume anything with caffeine for 12 hours before the test. If you need to cancel the test for any reason or even think you won???t be able to make your appointment, call us at least 24 hours in advance at . This office is open Wednesday through Wednesday 8:00 am to 5:00pm. Please check in at the [facility] veterinary receptionist desk on the day of your test. You will be having a stress test. A stress test shows how well your heart works with increased demands on it. You will check in for your stress test at [facility]. You must refrain from eatingor drinking anything for 3 hours prior to your check in time. Additionally, you must refrain from eating or drinking any item that may contain caffeine for 12 hours prior to your check in time. This includes NO GUM. MINTS, TIC TACS - ANY FOOD. Our nurse will contact you with special instructions regarding your daily medications, if they need to be taken differently prior to the testing. Failure to adhere to these guidelines will result in your testing being canceled and rescheduled to a later date. You will check in for your Transthoracic echocardiogram at veterinary receptionist area [facility]. Exercise each day for 30 minutes or [...] Progress Notes * Rowan Victoria PA - 06/19/2022 12:45 PM EST Thoracic Surgery Attending Outpatient Follow Up Note MD Rowan Noriega PA-C [place] [address] FAX: Reason for Visit: Follow up right lower lobe lung mass HPI: Marco Antonio Xiong is a 76 y.o. male with an FDG avid 4.3cm pleural based right lower lobe lung nodule and chronic right pleural effusion that was found to be negative for malignancy after navigational bronchoscopy/EBUS and thoracentesis on 02/25/22. He was prescribed an extended course of azithromycin, which he has now completed, and was asked to return for a repeat CT scan. Since he was last seen he reports feeling well overall and has started gaining weight (144lb from 137lb in January). He no longer has any complaints of shortness of breath with exertion. He denies fever, n/v, chest pain, weight loss, night sweats, abdominal pain, constipation or diarrhea. Medications: Current Outpatient Medications on File Prior to Visit Medication Sig Dispense Refill ??? azithromycin (Zithromax) 250 mg Tablet Take 1 tablet by mouth daily. Day1:take 2 tablets daily,Day 2-5:Take one tablet daily 6 tablet 0 ??? acetaminophen (Tylenol) 650 mg/20.3 mL Solution Take 20.3 mLs by mouth every 6 hours. 500 mL 2 ??? multivitamin (THERAGRAN) Tablet Take 1 tablet by mouth daily. ??? aspirin EC 81 mg Tablet, Delayed Release (E.C.) Take 81 mg by mouth daily. ??? omeprazole (PriLOSEC) 20 mg Capsule, Delayed Release(E.C.) Take 20 mg by mouth every morning. ??? ibuprofen (Motrin) 400 mg Tablet Take 1 tablet by mouth every 6 hours as needed for Pain. (Patient not taking: Reported on 06/19/2022) 30 tablet 12 Current Facility-Administered Medications on File Prior to Visit Medication Dose Route Frequency Provider Last Rate Last Admin ??? [COMPLETED] iohexoL (Omnipaque) (350 mg/mL) solution 0-200 mL 0-200 mL Intravenous Once PRN Bhavna Marquez MD 60 mL at 06/19/22 1122 Physical Exam: BP 154/64 (Patient Position: Sitting) Pulse 63 Temp 35.6 ??C (96.1 ??F) (Temporal) Resp 18 Ht 166.9 cm (5' 5.71) Wt 65.4 kg (144 lb 2.9 oz) SpO2 98% BMI 23.48 kg/m?? General Appearance: Alert, pleasant, no distress Lungs: Lung sounds diminished at the right base. Respirations unlabored, no wheezes, crackles or ronchi. Heart: Regular rate and rhythm, S1 and S2 normal no murmur, rub, or gallop Abdomen: Soft, non-tender, non-distended Extremities: Extremities normal, atraumatic, no cyanosis or edema Imaging: I have independently visualized the following studies: CT Chest (06/19/22): IMPRESSION 1. Grossly unchanged pleural-based mass at the RIGHT lung base. 2. Moderate RIGHT loculated pleural effusion with thickened, enhancing pleural margins. 3. Unchanged bilateral calcified pleural plaques. 4. No adenopathy or evidence of metastases. 5. Moderate hiatal hernia. Assessment: Marco Antonio Xiong is a 76 y.o. male with an FDG avid 4.3cm pleural based right lower lobe lung nodule and right pleural effusion that was found to be negative for malignancy after navigational bronchoscopy/EBUS and thoracentesis on 02/25/22 and has now completed an extended course of Azithromycin. Repeat CT scan today shows unchanged size of the mass. Plan: 1. Present at [facility] to discuss options of repeat biopsy versus surgery vs. continued observation 2. Obtain echocardiogram given history of chronic pleural effusion to ensure the effusions are not cardiac related 3. Call with any questions Patient seen and examined with Dr. Landen Goodman. ADRIANO Carvalho 06/19/22 * Landen Goodman MD - 06/19/2022 12:45 PM EST Thoracic Surgery Attending Outpatient Follow Up Note MD Rowan Noriega PAEleonora [facility] [address] [place], [place] [address] FAX: Reason for Visit: Follow up right lower lobe lung mass HPI: Marco Antonio Xiong is a 76 y.o. male with an FDG avid 4.3cm pleural based right lower lobe lung nodule and chronic right pleural effusion that was found to be negative for malignancy after navigational bronchoscopy/EBUS and thoracentesis on 02/25/22. He was prescribed an extended course of azithromycin, which he has now completed, and was asked to return for a repeat CT scan. Since he was last seen he reports feeling well overall and has started gaining weight (144lb from 137lb in January). He no longer has any complaints of shortness of breath with exertion. He denies fever, n/v, chest pain, weight loss, night sweats, abdominal pain, constipation or diarrhea. Medications: Current Outpatient Medications on File Prior to Visit Medication Sig Dispense Refill ??? azithromycin (Zithromax) 250 mg Tablet Take 1 tablet by mouth daily. Day1:take 2 tablets daily,Day 2-5:Take one tablet daily 6 tablet 0 ??? acetaminophen (Tylenol) 650 mg/20.3 mL Solution Take 20.3 mLs by mouth every 6 hours. 500 mL 2 ??? multivitamin (THERAGRAN) Tablet Take 1 tablet by mouth daily. ??? aspirin EC 81 mg Tablet, Delayed Release (E.C.) Take 81 mg by mouth daily. ??? omeprazole (PriLOSEC) 20 mg Capsule, Delayed Release(E.C.) Take 20 mg by mouth every morning. ??? ibuprofen (Motrin) 400 mg Tablet Take 1 tablet by mouth every 6 hours as needed for Pain. (Patient not taking: Reported on 06/19/2022) 30 tablet 12 Current Facility-Administered Medications on File Prior to Visit Medication Dose Route Frequency Provider Last Rate Last Admin ??? [COMPLETED] iohexoL (Omnipaque) (350 mg/mL) solution 0-200 mL 0-200 mL Intravenous Once PRN Bhavna Marquez MD 60 mL at 06/19/22 1122 Physical Exam: BP 154/64 (Patient Position: Sitting) Pulse 63 Temp 35.6 ??C (96.1 ??F) (Temporal) Resp 18 Ht 166.9 cm (5' 5.71) Wt 65.4 kg (144 lb 2.9 oz) SpO2 98% BMI 23.48 kg/m?? General Appearance: Alert, pleasant, no distress Lungs: Lung sounds diminished at the right base. Respirations unlabored, no wheezes, crackles or ronchi. Heart: Regular rate and rhythm, S1 and S2 normal no murmur, rub, or gallop Abdomen: Soft, non-tender, non-distended Extremities: Extremities normal, atraumatic, no cyanosis or edema Imaging: I have independently visualized the following studies: CT Chest (06/19/22): IMPRESSION 1. Grossly unchanged pleural-based mass at the RIGHT lung base. 2. Moderate RIGHT loculated pleural effusion with thickened, enhancing pleural margins. 3. Unchanged bilateral calcified pleural plaques. 4. No adenopathy or evidence of metastases. 5. Moderate hiatal hernia. Assessment: Marco Antonio Xiong is a 76 y.o. male with an FDG avid 4.3cm pleural based right lower lobe lung nodule and right pleural effusion that was found to be negative for malignancy after navigational bronchoscopy/EBUS and thoracentesis on 02/25/22 and has now completed an extended course of Azithromycin. Repeat CT scan today shows unchanged size of the mass. Plan: 1. Present at [facility] to discuss options of repeat biopsy versus surgery vs. continued observation 2. Obtain echocardiogram given history of chronic pleural effusion to ensure the effusions are not cardiac related 3. Call with any questions Patient seen and examined with Dr. Landen Goomdan. ADRIANO Carvalho 06/19/22 Attending Attestation: I have seen the patient in person and reviewed the resident's above history and I agree with the details as written. The assessment and plan were formulated in discussion with me and I agree with them as documented. Pertinent History: 76y/o male well known to me with a history of a right pleural effusion and RLL lung mass now presenting with continued lung mass and pleural effusion after antibiotic treatment. Pertinent Exam: Older male in NAD. Breathing non-labored. RRR. No pedal edema. Major issues addressed: Continued mass and pleural effusion Plan: I discussed with Mr Xiong and his the next steps needed in his care. In brief, this is a 76y/o male with concern for an infectious/inflammatory process. Given little to no resolution onCT scan, we will re discuss his case at out [facility]. I told him that his optionsare likely re- biopsy or surgical biopsy. He and his were in agreement with this plan. If we doproceed with this, we will need PET, PFTs, stress test and echo. Plan moving forward: 1. Present at [facility] to discuss options of repeat biopsy versus surgery vs. continued observation 2. Obtain echocardiogram given history of chronic pleural effusion to ensure the effusions are not cardiac related. If we proceed to the OR, we will also need a repeat PET, PFTs and stress test. 3. Call with any questions It was a pleasure to see Mr Xiong and his today. Landen Goodman MD Thoracic Surgery documented in this encounter Plan of Treatment Upcoming Encounters Date Type Department Care Team (Late st Contact Info) Description 06/20/2024 10:00 AM EST Office Visit Hematology/Oncology at [address] [phone] HEMATOLOGY AND ONCOLOGY [place], [place] [id number] 06/20/2024 10:30 AM EST Infusion Hematology Oncology at [address] [phone] 07/04/2024 11:00 AM EST Office Visit Hematology/Oncology at [address] [phone] HEMATOLOGY AND ONCOLOGY [place], [place] [id number] 07/04/2024 11:30 AM EST Infusion Hematology Oncology at [address] [phone] documented as of this encounter Results * Pulmonary Function Testing (07/02/2022 11:11 AM EST) FVC Actual Pre-BD 2.01 L COMPAS PFT FVC Pre-BD % of Predicted 62 % COMPAS PFT FVC Predicted 3.25 L COMPAS PFT FVC Pre-BD Z-Score -2.28 COMPAS PFT FVC Lower Limits of Normal 2.35 L COMPAS PFT FEV1 Actual Pre-BD 1.19 L COMPAS PFT FEV1 Pre-BD % of Predicted 49 % COMPAS PFT FEV1 Predicted 2.45 L COMPAS PFT FEV1 Pre-BD Z-Score -2.69 COMPAS PFT FEV1 Lower Limits of Normal 1.70 L COMPAS PFT FEV1 / FVC Actual Pre-BD 59 % COMPAS PFT FEV1/FVC Pre-BD Z-Score -1.87 COMPAS PFT FEV1 / FVC LLN 61 % COMPAS PFT [id number] Actual Pre-BD 0.60 L/s COMPAS PFT [id number] Pre-BD % of Predicted 33 % COMPAS PFT [id number] Predicted 1.82 L/s COMPAS PFT [id number] Pre-BD Z-Score -1.89 COMPAS PFT DLCO Hb Actual Pre-BD 9.11 mL/min/mmHg COMPAS PFT DLCO Hb Pre-BD % of Predicted 44 % COMPAS PFT DLCO Hb Pre-BD Z-Score -3.84 COMPAS PFT DLCO Hb Predicted 20.71 mL/min/mmHg COMPAS PFT DLCO UNC ACT PRE-BD 9.11 mL/min/mmHg COMPAS PFT DLCO UNC PRE-BD % of PRED 44 % COMPAS PFT DLCO UNC PRE-BD Z-SCORE -3.84 % COMPAS PFT DLCO UNC Predicted 20.71 mL/min/mmHg COMPAS PFT DLCO/VA Actual Pre-BD 2.90 mL/min/mmHg /L COMPAS PFT DLCO/VA Pre-BD % of Predicted 72 % COMPAS PFT DLCO/VA Pre-BD Z-Score -1.72 COMPAS PFT DLCO/VA Predicted 4.03 mL/min/mmHg /L COMPAS PFT Narrative COMPAS PFT - 07/02/2022 11:11 AM EST FINDINGS: FEV1, FVC and FEV1/VC are reduced. Diffusion capacity not adjusted for hemoglobin is reduced. Normal resting oximetry. IMPRESSION: Spirometry demonstrates severe (FEV1 35 to 49%) obstruction. Reduced FVC could represent co-existent restriction or air trapping. The presence of restriction or air trapping can be tested by measurement of lung volumes. Moderate reduction in diffusing capacity (DLCO 40 to 60%). Compared to the last study on 02/13/22, the FVC is not significantly changed, the FEV1 decreased by 0.18 L and the DLCO decreased by 14%. Obstruction combined with a reduced diffusion capacity suggests emphysema. Procedure Note Juan C Jha MD - 07/02/2022 FINDINGS: FEV1, FVC and FEV1/VC are reduced. Diffusion capacity notadjusted for hemoglobin is reduced. Normal resting oximetry. IMPRESSION: Spirometry demonstratessevere (FEV1 35 to 49%) obstruction. Reduced FVC could represent co-existent restriction or airtrapping. The presence of restriction or air trapping can be tested by measurement of lungvolumes. Moderate reduction in diffusing capacity (DLCO 40 to 60%). Compared to the last study on02/13/22, the FVC is not significantly changed, the FEV1 decreased by 0.18 L and the DLCO decreasedby 14%. Obstruction combined with a reduced diffusion capacity suggests emphysema. Landen Goodman MD PFT ORDERABLES COMPAS PFT * NM PET CT Skull Base to Mid-thigh (07/02/2022 10:36 AM EST) Anatomical Region Laterality Modality Positron Emissio n Tomography (PET) Impressions 07/06/2022 1:27 PM EST 1. ??Interval increased size and metabolic activity of the RIGHT lower lobe mass. Findings favor primary pulmonary malignancy. 2. ??Hilar lymph nodes are unchanged, nonenlarged and symmetric. Although metastasis cannot be excluded, these findings favor a reactive process. 3. ??Unchanged right-sided pleural effusion. I have personally reviewed the image(s) and the resident's interpretation and agree with the findings, Kwaku Padron MD at 07/06/2022 1:27 PM Thank you for letting us participate in the care of this patient. ??If you are a health care provider and have any questions regarding this report, please contact the number below. ??For patients who have questions please contact the health residential child care counselor that requested your imaging first. ? Electronically signed by: Kwaku Padron MD, [facility] ([phone]), at 07/06/2022 1:27 PM Narrative 07/06/2022 1:27 PM EST EXAMINATION: NM PET CT STANDARD SKULL BASE TO MID-THIGH CLINICAL HISTORY: Surgical Planning; Metastatic disease evaluation - Include more detail below FDG avid 4.3cm pleural based right lower lobe lung nodule and pleural effusion, needs resection, eval for mets Pleural fluid negative for malignancy, endoscopic lymph node biopsy negative TECHNIQUE: Following IV injection of 74-ahmotn-9-deoxyglucose (FDG) a standard uptake of approximately 60 minutes, a noncontrast CT scan followed by a PET scan were acquired from the base of the skull to mid thighs. The noncontrast CT was used for anatomic localization and photon attenuation correction of the PET scan. Blood glucose level: 75 (mg/dL) FDG dose: 9.8 mCi COMPARISON: PET/CT 01/30/2022 FINDINGS: HEAD/NECK: Normal activity in all soft tissue regions of the neck. Unchanged encephalomalacia in a RIGHT temporoparietal distribution. CHEST: Interval increased size of the FDG avid RIGHT lower lobe peripherally based mass measures 5.3 x 3.5 centimeters. FDG avid bilateral hilar lymph nodes are present and unchanged in size and metabolic activity from prior examination. Bilateral calcified pleural plaques on the diaphragmatic surfaces indicating prior asbestos exposure. Unchanged moderate RIGHT pleural effusion. This effusion has a loculated component. Coronary artery calcifications. Bibasilar LEFT greater than RIGHT scarring. Moderate-sized hiatal hernia. ABDOMEN/PELVIS: Normal activity in all soft tissue regions. SKELETON/EXTREMITIES: Mildly FDG avid heterogeneous sclerotic changes with diffuse cortical thickening of the LEFT hemipelvis consistent with Paget disease. Normal activity in all other skeletal regions. No suspicious osseous lesions. Procedure Note Kwaku Padron MD - 07/06/2022 EXAMINATION: MT PET CT STANDARD SKULL BASE TO MID-THIGH CLINICAL HISTORY: Surgical Planning; Metastatic disease evaluation -Include more detail below FDG avid 4.3cm pleural based right lower lobe lung nodule and pleuraleffusion, needs resection, eval for mets Pleural fluid negative for malignancy, endoscopic lymph node biopsynegative TECHNIQUE: Following IV injection of 11-snyhcf-5-deoxyglucose (FDG) astandard uptake of approximately 60 minutes, a noncontrast CT scan followed by aPET scan were acquired from the base of the skull to mid thighs. The noncontrast CTwas used for anatomic localization and photon attenuation correction of thePET scan. Blood glucose level: 75 (mg/dL) FDG dose: 9.8 mCi COMPARISON: PET/CT 01/30/2022 FINDINGS: HEAD/NECK: Normal activity in all soft tissue regions of the neck. Unchanged encephalomalacia in a RIGHT temporoparietal distribution. CHEST: Interval increased size of the FDG avid RIGHT lower lobe peripherallybased mass measures 5.3 x 3.5 centimeters. FDG avid bilateral hilar lymph nodes are present and unchanged in sizeand metabolic activity from prior examination. Bilateral calcified pleural plaques on the diaphragmatic surfacesindicating prior asbestos exposure. Unchanged moderate RIGHT pleural effusion. This effusion has a loculated component. Coronary artery calcifications. Bibasilar LEFT greater than RIGHTscarring. Moderate-sized hiatal hernia. ABDOMEN/PELVIS: Normal activity in all soft tissue regions. SKELETON/EXTREMITIES: Mildly FDG avid heterogeneous sclerotic changes with diffuse corticalthickening of the LEFT hemipelvis consistent with Paget disease. Normal activity inall other skeletal regions. No suspicious osseous lesions. IMPRESSION 1. Interval increased size and metabolic activity of the RIGHT lower lobemass. Findings favor primary pulmonary malignancy. 2. Hilar lymph nodes are unchanged, nonenlarged and symmetric. Although metastasis cannot be excluded, these findings favor a reactive process. 3. Unchanged right-sided pleural effusion. I have personally reviewed the image(s) and the resident's interpretationand agree with the findings, Kwaku Padron MD at 07/06/2022 1:27 PM Thank you for letting us participate in the care of this patient. If youare a health care provider and have any questions regarding this report,please contact the number below. For patients who have questions please contactthe health residential child care counselor that requested your imaging first. Electronically signed by: Kwaku Padron MD, [facility]([phone]), at 07/06/2022 1:27 PM Landen Goodman MD IMG PET ORDERABLES documented in this encounter Visit Diagnoses Diagnosis Pre-operative cardiovascular examination, high risk surgery Pre-operative cardiovascular examination Pulmonary mass Swelling, mass, or lump in chest Pulmonary mass Swelling, mass, or lump in chest Pulmonary mass Swelling, mass, or lump in chest documented in this encounter Care Teams Crown Attacher Relationship Specialty Start Date End Date Kadi Lane PA [address] [place] [address] PCP - General Family Medicine 07/28/16 documented as of this encounter
--- OUTSIDE RECORDS SUMMARY | 2024-06-20 01:29 | XMS_ITS | Encounter Summary ---
[place] [address] Care Team Providers Care Jumpbasting Collar Baster Name Role Phone Kadi Lane Primary Care Provider [phone] Encounter Details Date Type Department Care Team (Latest Contact Info) Description 06/19/2022 10:40 AM EST Laboratory Appointment Lab 3L [place] [address] Pulmonary mass Social History Tobacco Use Types [...] AM EST Office Visit Hematology/Oncology at [address] [phone] Lia Barber APRN [address] [place] [address] DR [place] [address] 06/20/2024 10:30 AM EST Infusion Hematology Oncology at [address] [phone] 07/04/2024 11:00 AM EST Office Visit Hematology/Oncology at [address] [phone] Lia Barber APRN [address] [place] [address] DR HEMATOLOGY AND ONCOLOGY [place], [place] [phone] 07/04/2024 11:30 AM EST Infusion Hematology Oncology at [address] [phone] documented as of this encounter Procedures Procedure Name Priority Date/Time Associated Diagnosis Comments CREATININE STAT 06/19/2022 10:24 AM EST Pulmonary mass documented in this encounter Results * Creatinine (06/19/2022 10:24 AM EST) Creatinine 0.82 0.80 - 1.50 mg/dL [facility] Est Glomerular Filtration Rate 90 >=60 mL/min/1. 73 m?? [facility] Comment: This patient's estimated GFR was [...] In Lab Landen Goodman MD CHEMISTRY ORDERABLES [facility] [place] [address] documented in this encounter Visit Diagnoses Diagnosis Pulmonary mass Swelling, mass, or lump in chest documented in this encounter Care Teams Jumpbasting Collar Baster Relationship Specialty Start Date End Date Kadi Lane PA [address] [place] [address] PCP - General Family Medicine 07/28/16 documented as of this encounter
--- OUTSIDE RECORDS SUMMARY | 2024-06-20 01:29 | XMS_ITS | Encounter Summary ---
Author Organization [facility] [place] [address] Care Team Providers Care Board Mixer Tender Name Role Phone Kadi Lane Primary Care Provider [phone] Encounter Details Date Type Department Care Team (Late st Contact Info) Description 02/25/2022 11:00 AM EDT Ancillary Procedure Radiology Library at [facility] [place] [phone] Mildred Osorio MD [facility] [place] [address] Social History Tobacco Use Types Packs/Day Years [...] AM EST Office Visit Hematology/Oncology at [address] [phone] Lia Barber, [address] HEMATOLOGY AND ONCOLOGY [place], [place] [phone] 06/20/2024 10:30 AM EST Infusion Hematology Oncology at [address] [phone] 07/04/2024 11:00 AM EST Office Visit Hematology/Oncology at [address] [phone] HEMATOLOGY AND ONCOLOGY [place], [place] [phone] 07/04/2024 11:30 AM EST Infusion Hematology Oncology at [address] [phone] documented as of this encounter Procedures Procedure Name Priority Date/Time Associated Diagnosis Comments FILM LIBRARY STORAGE ONLY CT CHEST Routine 02/25/2022 10:58 AM EDT documented in this encounter Results * Film Library- Storage Only CT Chest (02/25/2022 10:58 AM EDT) Narrative [facility] - 02/25/2022 10:58 AM EDT This exam is auto-finalizing. It's purpose is for storage only. Mildred Osorio MD IMG FILM LIBRARY ORD ERABLES Performing Organization Address City/State/[facility] Co de Phone Number [place], [place] documented in this encounter Visit Diagnoses Not on filedocumented in this encounter Care Teams Board Mixer Tender Relationship Specialty Start Date End Date Kadi Lane PA Luc[place] [address] PCP - General Family Medicine 07/28/16 documented as of this encounter
--- OUTSIDE RECORDS SUMMARY | 2024-06-20 01:29 | XMS_ITS | Encounter Summary ---
Author Organization [facility] [place] [address] Care Team Providers Care Haulpak Driver Name Role Phone Kadi Lane Primary Care Provider [phone] Encounter Details Date Type Department Care Team (Late st Contact Info) Description 02/25/2022 Orders [place] [phone] Bipin Moseley MD [facility] [place] [address] Dysphagia, unspecified type Social History Tobacco Use Types [...] AM EST Office Visit Hematology/Oncology at [address] [phone] Lia Barber, [address] HEMATOLOGY AND ONCOLOGY [place], [place] [phone] 06/20/2024 10:30 AM EST Infusion Hematology Oncology at [address] [phone] 07/04/2024 11:00 AM EST Office Visit Hematology/Oncology at [address] [phone] HEMATOLOGY AND ONCOLOGY [place], [place] [phone] 07/04/2024 11:30 AM EST Infusion Hematology Oncology at [address] [phone] documented as of this encounter Results * Request For 2nd Read CT Neck (02/25/2022 7:15 PM EDT) Anatomical Region Laterality Modality Neck SO Impressions 02/26/2022 8:35 AM EDT 1. ??Limited noncontrast CT of the neck. Given finding of the lesion described in #2 below, contrast-enhanced neck CT or, preferably, MRI is recommended for further evaluation. Ideally such a study would be obtained before any surgery is performed. 2. ??Bulky left sided hypopharyngeal mass with both mucosal [...] who have questions please contact the health respiratory care faculty that requested your imaging first. ? Electronically signed by: Pratik Batista MD, [facility] ([phone]), at 02/26/2022 8:35 AM Narrative 02/26/2022 8:35 AM EDT EXAMINATION: REQUEST FOR 2ND READ CT NECK [...] that protrudes into the airway appears. Posteriorly this mass extends up to the prevertebral space, laterally it extends up to the cornu of the hyoid, and medially it extends to midline. The mass is slightly hyperattenuating relative to adjacent structures but of similar attenuation to muscle. No bone erosion is evident and there is no visible involvement of the hyoid or spine. The mass substantially narrows the airway. At its narrowest the airway measures 4.2 mm though this measurement may be artifactually small since it is not clear that the CT was obtained during quiet inspiration. ??This mass was not FDG avid on the PET/CT of one month earlier. No lymphadenopathy is evident within the neck. The upper lungs are clear. The salivary glands are of normal appearance. Vascular structures are of normal appearance with the exception of calcification at the carotid bifurcations. There appears to have been bilateral sinonasal surgery with what likely represents a remaining opacified ethmoid air cell. No air-fluid level is present within the sinuses. The mastoid air cells are clear. No expansile or lytic bone lesion is evident. 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 Procedure Note Pratik Batista MD - 02/26/2022 EXAMINATION: REQUEST FOR 2ND READ CT NECK CLINICAL HISTORY: upper airway obstruction; Sending Institution [facility]; Date of exam [id number]; I believe areinterpretation of this exam may alter care of Patient. Yes TECHNIQUE: Axial sections through the neck of been obtained without use ofintravenous contrast. COMPARISON: PET/CT of 01/30/2022 FINDINGS: There is an approximately 1.8 cm mass at the level of the lefthypopharynx. Its largest component appears to be submucosal but there is an irregularmucosal component that protrudes into the airway appears. Posteriorly this massextends up to the prevertebral space, laterally it extends up to the cornu of thehyoid, and medially it extends to midline. The mass is slightlyhyperattenuating relative to adjacent structures but of similar attenuation to muscle. Nobone erosion is evident and there is no visible involvement of the hyoid orspine. The mass substantially narrows the airway. At its narrowest the airwaymeasures 4.2 mm though this measurement may be artifactually small since it is notclear that the CT was obtained during quiet inspiration. This mass was not FDGavid on the PET/CT of one month earlier. No lymphadenopathy is evident within the neck. The upper lungs are clear.The salivary glands are of normal appearance. Vascular structures are ofnormal appearance with the exception of calcification at the carotidbifurcations. There appears to have been bilateral sinonasal surgery with what likely represents a remaining opacified ethmoid air cell. No air-fluid level ispresent within the sinuses. The mastoid air cells are clear. No expansile or lyticbone lesion is evident. There is an area of encephalomalacia in the rightposterior temporal lobe most likely representing old infarction. IMPRESSION 1. Limited noncontrast CT of the neck. Given finding of the lesiondescribed in #2 below, contrast-enhanced neck CT or, preferably, MRI is recommendedfor further evaluation. Ideally such a study would be obtained before anysurgery is performed. 2. 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 This mass is not evident on the PET/CT from one monthearlier. Differential diagnosis includes both trauma/hematoma and rapidly growing neoplasm Thank you for letting us participate in the care of this patient. If youare a health care provider and have any questions regarding this report,please contact the number below. For patients who have questions please contactthe health respiratory care faculty that requested your imaging first. Electronically signed by: Pratik Batista MD, [facility]([phone]), at 02/26/2022 8:35 AM Bipin Moseley MD IMG OUTSIDE INT ERPRETATION ORDERABLES documented in this encounter Visit Diagnoses Diagnosis Dysphagia, unspecified type Dysphagia, unspecified type documented in this encounter Care Teams Haulpak Driver Relationship Specialty Start Date End Date Kadi Lane PA [address] [place] [address] PCP - General Family Medicine 07/28/16 documented as of this encounter
--- OUTSIDE RECORDS SUMMARY | 2024-06-20 01:29 | XMS_ITS | Encounter Summary ---
[place] [address] Care Team Providers Care Improvement Rn Name Role Phone Kadi Lane Primary Care Provider [phone] Reason for Referral * Diagnostic Test (Routine) - Closed Specialty Diagnoses / Procedures Referred By Jorge Luis bowers Referred To Contact Radiology Diagnoses Lung nodule Pulmonary mass Procedures CT Chest w Contrast Landen Goodman MD [address] [place] [address] [facility] [place] [address] Referral ID Status Reason Start Date Expiration Date V isits Requested Visits Authorized [id number] Closed Specialty Service Requested 02/13/2022 08/14/2023 1 1 Reason for Visit * Diagnostic Test (Routine) - Closed Specialty Diagnoses / Procedures Referred By Jorge Luis bowers Referred To Contact Radiology Diagnoses Lung nodule Pulmonary mass Procedures CT Chest w Contrast Landen Goodman MD [address] [place] [address] [facility] [place] [address] Referral ID Status Reason Start Date Expiration Date V isits Requested Visits Authorized [id number] Closed Specialty Service Requested 02/13/2022 08/14/2023 1 1 Encounter Details Date Type Department Care Team (Latest Contact Info) Description 06/19/2022 10:35 AM EST - 06/19/2022 11:59 PM EST Hospital [place] [address] Landen Goodman MD [address] [place] [address] Lung nodule; Pulmonary mass Discharge Disposition: Home Social History Tobacco Use [...] (E.C.) Take 81 mg by mouth daily. azithromycin (Zithromax) 250 mg TabletIndications:Pulmo nary mass Take 1 tablet by mouth daily. Day1:take 2 tablets daily, Day 2-5:Take one tablet daily 6 tablet 03/03/2022 07/07/2022 acetaminophen (Tylenol) 650 mg/20.3 mL Solution Take [...] AM EST Office Visit Hematology/Oncology at [address] [phone] HEMATOLOGY AND ONCOLOGY [place], [place] [address] 06/20/2024 10:30 AM EST Infusion Hematology Oncology at [address] [phone] 07/04/2024 11:00 AM EST Office Visit Hematology/Oncology at [address] [phone] [address] HEMATOLOGY AND ONCOLOGY [place], [place] [address] 07/04/2024 11:30 AM EST Infusion Hematology Oncology at [address] [phone] documented as of this encounter Procedures Procedure Name Priority Date/Time Associated Diagnosis Comments CT CHEST W CONTRAST Routine 06/19/2022 1 1:20 AM EST Lung nodule Pulmonary mass documented in this encounter Results * CT Chest w Contrast (06/19/2022 11:20 AM EST) Anatomical Region Laterality Modality Chest Computed Tomogra phy Impressions 06/19/2022 3:14 PM EST 1. ??Grossly unchanged pleural-based mass at the RIGHT lung base. 2. ??Moderate RIGHT loculated pleural effusion with thickened, enhancing pleural margins. 3. ??Unchanged bilateral calcified pleural plaques. 4. ??No adenopathy or evidence of metastases. 5. ??Moderate hiatal hernia. I have personally reviewed the image(s) and the resident's interpretation and agree with the findings, Bipin Fernandez MD at 06/19/2022 3:14 PM Thank you for letting us participate in the care of this patient. ??If you are a health care provider and have any questions regarding this report, please contact the number below. ??For patients who have questions please contact the health child care worker that requested your imaging first. ? Electronically signed by: Bipin Fernandez MD, [facility] ([phone]), at 06/19/2022 3:14 PM Narrative 06/19/2022 3:14 PM EST EXAMINATION: CT CHEST W CONTRAST CLINICAL HISTORY: Abnormal xray - lung nodule, >= 1 cm; Surgical Planning RLL 4.3cm FDG avid mass, eval for surgical candidacy TECHNIQUE: Helical CT of the chest after the intravenous administration of contrast, Administered 60.0 ml of OMNIPAQUE 350.00 mg/ml. Thin-section reconstructions as well as coronal and sagittal reformatted images were generated. COMPARISON: CT chest 02/25/2022 through 12/03/2016 PET/CT 01/30/2022 FINDINGS: Pulmonary parenchyma: RIGHT lower lobe pleural-based [...] avid bilateral hilar lymph nodes from prior PET/CT. Heart and vasculature: Coronary calcification. Unchanged pericardial calcification. Other mediastinal structures: Moderate hiatal hernia. Upper abdomen: No significant findings. Skeletal structures: No significant findings. Procedure Note Bipin Fernandez MD - 06/19/2022 EXAMINATION: CT CHEST W CONTRAST CLINICAL HISTORY: Abnormal xray - lung nodule, >= 1 cm; SurgicalPlanning RLL 4.3cm FDG avid mass, eval for surgical candidacy TECHNIQUE: Helical CT of the chest after the intravenous administrationof contrast, Administered 60.0 ml of OMNIPAQUE 350.00 mg/ml. Thin-section reconstructions as well as coronal and sagittal reformatted images were generated. COMPARISON: CT chest 02/25/2022 through 12/03/2016 PET/CT 01/30/2022 FINDINGS: Pulmonary parenchyma: RIGHT lower lobe pleural-based 5.4 x 3.3 x 4.9 cm peripherally enhancing consolidative mass with regions of centralhypodensity may reflect areas of necrosis. The mass contacts the righthemidiaphragm. Bilateral scarring at the bases and the lingula. Unchanged RIGHT upper lobe calcified granuloma. Scattered centrilobular emphysematous disease. Airways: Widely patent. Pleura: Unchanged moderate RIGHT pleural effusion with peripheralenhancement. No LEFT pleural effusion. Bilateral dense pleural plaques, unchanged. Lymph nodes: No lymphadenopathy. No significant CT correlate to FDG avid bilateral hilar lymph nodes from prior PET/CT. Heart and vasculature: Coronary calcification. Unchanged pericardial calcification. Other mediastinal structures: Moderate hiatal hernia. Upper abdomen: No significant findings. Skeletal structures: No significant findings. IMPRESSION 1. Grossly unchanged pleural-based mass at the RIGHT lung base. 2. Moderate RIGHT loculated pleural effusion with thickened, enhancingpleural margins. 3. Unchanged bilateral calcified pleural plaques. 4. No adenopathy or evidence of metastases. 5. Moderate hiatal hernia. I have personally reviewed the image(s) and the resident's interpretationand agree with the findings, Bipin Fernandez MD at 06/19/2022 3:14 PM Thank you for letting us participate in the care of this patient. If youare a health care provider and have any questions regarding this report,please contact the number below. For patients who have questions please contactthe health child care worker that requested your imaging first. Electronically signed by: Bipin Fernandez MD, [facility]([phone]), at 06/19/2022 3:14 PM Landen Goodman MD IMG CT ORDERABLES documented in this encounter Visit Diagnoses Diagnosis Lung nodule Solitary pulmonary nodule Pulmonary mass Swelling, mass, or lump in chest documented in this encounter Administered Medications Inactive Administered Medications - up to 3 most recent administrations Medication Order MAR Action Action Date Dose Rate Site iohexoL (Omnipaque) (350 mg/mL) solution 0-200 mL 0-200 mL, Intravenous, ONCE PRN, 1 dose, Starting on Wed06/19/22 at 1122, Until Wed06/19/22 at 1122, Per Protocol, Warning Vesicant/Irritant Medication , Radiology Contrast, Routine Given 06/19/2022 11:22 AM EST 60 mLs documented in this encounter Care Teams Improvement Rn Relationship Specialty Start Date End Date Kadi Lane PA [address] [place] [address] PCP - General Family Medicine 07/28/16 documented as of this encounter
--- OUTSIDE RECORDS SUMMARY | 2024-06-20 01:29 | XMS_ITS | Encounter Summary ---
[place] [address] Care Team Providers Care Resource Teacher Name Role Phone Kadi Lane Primary Care Provider [phone] Encounter Details Date Type Department Care Team (Late st Contact Info) Description 07/03/2022 Orders [place] [phone] Landen Goodman MD [address] [place] [address] Social History Tobacco Use Types Packs/Day Years [...] AM EST Office Visit Hematology/Oncology at [address] [phone] HEMATOLOGY AND ONCOLOGY [place], [place] [address] 06/20/2024 10:30 AM EST Infusion Hematology Oncology at [address] [phone] 07/04/2024 11:00 AM EST Office Visit Hematology/Oncology at [address] [phone] [address] HEMATOLOGY AND ONCOLOGY [place], [place] [phone] 07/04/2024 11:30 AM EST Infusion Hematology Oncology at [address] [phone] documented as of this encounter Visit Diagnoses Not on filedocumented in this encounter Care Teams Resource Teacher Relationship Specialty Start Date End Date Kadi Lane PA [address] [place] [address] PCP - General Family Medicine 07/28/16 documented as of this encounter
--- OUTSIDE RECORDS SUMMARY | 2024-06-20 01:29 | XMS_ITS | Encounter Summary ---
[place] [address] Care Team Providers Care Customer Relations Specialist Name Role Phone Kadi Lane Primary Care Provider [phone] Encounter Details Date Type Department Care Team (Latest Contact Info) Description 07/02/2022 10:44 AM EST - 07/02/2022 11:59 PM EST Hospital Encounter [place] [phone] Pulmonary mass Discharge Disposition: Home Social History [...] 10:00 AM EST Office Visit Hematology/Oncology at [address] [phone] HEMATOLOGY AND ONCOLOGY [place], [place] [phone] 06/20/2024 10:30 AM EST Infusion Hematology Oncology at [address] [phone] 07/04/2024 11:00 AM EST Office Visit Hematology/Oncology at [address] [phone] [address] [place] [address] 07/04/2024 11:30 AM EST Infusion Hematology Oncology at [address] [phone] documented as of this encounter Procedures Procedure Name Priority Date/Time Associated Diagnosis Comments COMMON PULMONARY FUNCTION TEST Routine 07/02/2022 11:11 AM EST Pulmonary mass documented in this encounter Results * Pulmonary Function Testing [...] / FVC LLN 61 % COMPAS PFT [id number] Actual Pre-BD 0.60 L/s COMPAS PFT YGP17-82 Pre-BD % of Predicted 33 % COMPAS PFT GAR53-11 Predicted 1.82 L/s COMPAS PFT EAV64-26 Pre-BD Z-Score -1.89 COMPAS PFT DLCO Hb [...] Landen Goodman MD PFT ORDERABLES COMPAS PFT documented in this encounter Visit Diagnoses Diagnosis Pulmonary mass Swelling, mass, or lump in chest documented in this encounter Care Teams Customer Relations Specialist Relationship Specialty Start Date End Date Kadi Lane PA [address] [place] [address] PCP - General Family Medicine 07/28/16 documented as of this encounter
--- OUTSIDE RECORDS SUMMARY | 2024-06-20 01:29 | XMS_ITS | Encounter Summary ---
[place] [address] Care Team Providers Care Nut Culler Name Role Phone Kadi Lane Primary Care Provider [phone] Reason for Referral * Diagnostic Test (Routine) - Closed Specialty Diagnoses / Procedures Referred By Contac t Referred To Contact Radiology Diagnoses Pulmonary mass Procedures NM PET CT Skull Base to Mid-thigh Landen Goodman MD [address] [address] [place] [address] Referral ID Status Reason Start Date Expiration Date V isits Requested Visits Authorized [id number] Closed Specialty Service Requested 06/24/2022 12/23/2023 1 1 Reason for Visit * Diagnostic Test (Routine) - Closed Specialty Diagnoses / Procedures Referred By Contac t Referred To Contact Radiology Diagnoses Pulmonary mass Procedures NM PET CT Skull Base to Mid-thigh Landen Goodman MD [address] [place] [address] [place] [address] Referral ID Status Reason Start Date Expiration Date V isits Requested Visits Authorized [id number] Closed Specialty Service Requested 06/24/2022 12/23/2023 1 1 Encounter Details Date Type Department Care Team (Latest Contact Info) Description 07/02/2022 9:11 AM EST Hospital Encounter [place] [address] Landen Goodman MD [address] [place] [address] Pulmonary mass Discharge Disposition: Home Social History [...] AM EST Office Visit Hematology/Oncology at [address] [phone] HEMATOLOGY AND ONCOLOGY [place], [place] [phone] 06/20/2024 10:30 AM EST Infusion Hematology Oncology at [address] [phone] 07/04/2024 11:00 AM EST Office Visit Hematology/Oncology at [address] [phone] HEMATOLOGY AND ONCOLOGY [place], [place] [phone] 07/04/2024 11:30 AM EST Infusion Hematology Oncology at [address] [phone] documented as of this encounter Procedures Procedure Name Priority Date/Time Associated Diagnosis Comments NM PET CT SKULL BASE TO MID-THIGH ([facility]) Routine 07/02/2022 10:36 AM EST Pulmonary mass POCT GLUCOSE Routine 07/02/2022 9:18 AM EST documented in this encounter Results * NM [...] interpretation and agree with the findings, Kwaku Padron, MD at 07/06/2022 1:27 PM Thank you for letting us participate in the care of this patient. ??If you are a health care provider and have any questions regarding this report, please contact the number below. ??For patients who have questions please contact the health resident care provider that requested your imaging first. ? Narrative 07/06/2022 1:27 PM EST EXAMINATION: NM PET CT STANDARD SKULL BASE TO MID-THIGH CLINICAL HISTORY: Surgical Planning; Metastatic disease evaluation - Include more detail below FDG avid 4.3cm pleural based right lower lobe lung nodule and pleural effusion, needs resection, eval for mets Pleural fluid negative for malignancy, endoscopic lymph node biopsy negative TECHNIQUE: Following IV injection of 55-yoyohj-1-deoxyglucose (FDG) a standard uptake of approximately 60 [...] Note Kwaku Padron MD - 07/06/2022 EXAMINATION: NM PET CT STANDARD SKULL BASE TO MID-THIGH CLINICAL HISTORY: Surgical Planning; Metastatic disease evaluation -Include more detail below FDG avid 4.3cm pleural based right lower lobe lung nodule and pleuraleffusion, needs resection, eval for mets Pleural fluid negative for malignancy, endoscopic lymph node biopsynegative TECHNIQUE: Following IV injection of 33-mrkpkk-2-deoxyglucose (FDG) astandard uptake of approximately 60 minutes, [...] have questions please contactthe health resident care provider that requested your imaging first. Landen Goodman MD IMG PET ORDERABLES * POCT Glucose (07/02/2022 9:18 AM EST) Glucose, POC 75 65 - 199 mg/dL [facility] Comment: Supplemental ranges: <140 mg/dL before meals <180 mg/dL all other times of the day Blood 07/02/2022 9:18 AM EST 07/02/2022 9:18 AM EST Landen Goodman MD POINT OF CARE TEST O RDERABLES [facility] [place] [address] documented in this encounter Visit Diagnoses Diagnosis Pulmonary mass Swelling, mass, or lump in chest documented in this encounter Administered Medications Inactive Administered Medications - up to 3 most recent administrations Medication Order MAR Action Action Date Dose Rate Site fludeoxyglucose (F-18) FDG injection 0-20 mCi 0-20 mCi, Intravenous, ONCE PRN, 1 dose, Starting on Aileen 07/02/22 at 0929, Until Aileen 07/02/22 at 0925, Per Protocol, Radiology Contrast, Routine Given 07/02/2022 9:25 AM EST 9.8 mCi Right Arm documented in this encounter Care Teams Nut Culler Relationship Specialty Start Date End Date Kadi Lane PA [address] [place], [place] [address] [address] PCP - General Family Medicine 07/28/16 documented as of this encounter
--- OUTSIDE RECORDS SUMMARY | 2024-06-20 01:29 | XMS_ITS | Encounter Summary ---
[place] [address] Care Team Providers Care Tent Worker Name Role Phone Kadi Lane Primary Care Provider [phone] Reason for Visit * Diagnostic Test (Routine) - Closed Specialty Diagnoses / Procedures Referred By Jorge Luis bowers Referred To Contact Radiology Diagnoses Pulmonary mass Procedures NM PET CT Skull Base to Mid-thigh Landen Goodman MD [address] [place] [address] [place] [address] Referral ID Status Reason Start Date Expiration Date V isits Requested Visits Authorized [id number] Closed Specialty Service Requested 06/24/2022 12/23/2023 1 1 Encounter Details Date Type Department Care Team (Latest Contact Info) Description 07/02/2022 9:12 AM EST - 07/02/2022 10:43 AM [facility] Hospital [place] [address] Landen Goodman MD [address] [place] [address] Discharge Disposition: Home Social History Tobacco Use [...] AM EST Office Visit Hematology/Oncology at [address] [phone] Lia Barber APRN [address] [place] [address] DR HEMATOLOGY AND ONCOLOGY [place], [place] [address] 06/20/2024 10:30 AM EST Infusion Hematology Oncology at [address] [phone] 07/04/2024 11:00 AM EST Office Visit Hematology/Oncology at [address] [phone] Lia Barber APRN [address] [place] [address] DR HEMATOLOGY AND ONCOLOGY [place], [place] [phone] 07/04/2024 11:30 AM EST Infusion Hematology Oncology at [address] [phone] documented as of this encounter Procedures Procedure Name Priority Date/Time Associated Diagnosis Comments NM PET CT SKULL BASE TO MID-THIGH ([facility]) Routine 07/02/2022 10:36 AM EST Pulmonary mass documented in this encounter Results * NM [...] who have questions please contact the health geriatric personal care aide that requested your imaging first. ? Electronically signed by: Kwaku Padron MD, [facility] ([phone]), at 07/06/2022 1:27 PM Narrative 07/06/2022 1:27 PM EST EXAMINATION: NM PET CT STANDARD SKULL BASE TO MID-THIGH CLINICAL HISTORY: Surgical Planning; Metastatic disease evaluation - Include more detail below FDG avid 4.3cm pleural based right lower lobe lung nodule and pleural effusion, needs resection, eval for mets Pleural fluid negative for malignancy, endoscopic lymph node biopsy negative TECHNIQUE: Following IV injection of 73-qjsdta-5-deoxyglucose (FDG) a standard uptake of approximately 60 [...] node biopsynegative TECHNIQUE: Following IV injection of 00-jhqdmt-9-deoxyglucose (FDG) astandard uptake of approximately 60 minutes, [...] patients who have questions please contactthe health geriatric personal care aide that requested your imaging first. Electronically signed by: Kwaku Padron MD, [facility]([phone]), at 07/06/2022 1:27 PM Landen Goodman MD IMG PET ORDERABLES documented in this encounter Visit Diagnoses Not on filedocumented in this encounter Care Teams Tent Worker Relationship Specialty Start Date End Date Kadi Lane PA [address] [place] [address] PCP - General Family Medicine 07/28/16 documented as of this encounter
--- OUTSIDE RECORDS SUMMARY | 2024-06-20 01:29 | XMS_ITS | Encounter Summary ---
[place] [address] Care Team Providers Care Movie Theater Manager Name Role Phone Kadi Lane Primary Care Provider [phone] Reason for Visit * Auth/Cert Specialty Diagnoses / Procedures Referred By Contac t Referred To Contact Diagnoses Hypopharyngeal mass Post Op Tracial Obstruction Charlie Marte MD [facility] [place] [address] [facility] Referral ID Status Reason Start Date Expiration Date Visits Re quested Visits Authorized [id number] 1 1 Encounter Details Date Type Department Care Team (Late st Contact Info) Description 02/26/2022 1:01 PM EDT Anesthesia Event [place] [address] Denita Reynoso MD [facility] [place] [address] Zach Souza CRNA [facility] [place] [address] Anesthesia Record Procedure Summary Procedure Name Responsible Anesthesiologist Anesthesia Start Time Anesthesia Stop Time LARYNGOSCOPY, DIRECT, DIAGNOSIS, EXCEPT (WRVU 2.63) (Throat) Denita Reynoso MD 02/26/22 1301 02/26/22 1420 Events Date Time Event Comment 02/26/2022 1144 1301 AN Verify 1301 Start 1301 An Start Data 1311 An Induction 1313 An Intubation 1313 Quick Note White exudate & edematous oral pharynx noted on DL. 1321 Anesthesia Ready 1404 Quick Note Extubation crit eria met including SpO2 > 92%, spontaneous Vt > 5 mL/kg, spontaneous RR > 7 bpm, ETCO2 < 50 mmHg, ETCO2 downtrending towards baseline, full reversal of muscle relaxation, TOF ratio > 90%, intact cough/gag reflexes, temperature > 35.5 C, and following verbal commands. Oropharynx suctioned and patient extubated to 6 L of oxygen via facemask without any airway adjuncts. Hemodynamically stable and spontaneous ventilation maintained. 1406 Extubation/LMA Out 1406 an stop data 1420 Recovery or ICU Handoff [place] ent care was transferred to the destination unit staff after review of the patient's medical history, current anesthetic/surgical status and plan, according to the Provider Handoff Checklist. 1420 Stop Meds Name Total Propofol 200 mg Rocuronium 50 mg Dexamethasone 4 mg Propofol INF 545.2 mg Sugammadex 200 mg Lactated Ringers 400 mL * Agents Name O2 Air N2O Sevoflurane (et) * Blood No blood administrations on file. Lines, Drains, and Airways Type Details Placement Removal (RETIRED) Peripheral IV Line - Single Lumen 02/25/22; 1530; median vein (underside of arm), right; azjj-qop-zfdsvr catheter system; 02/27/22; 0847 02/25/22 1530 by Mela Fragoso RN 02/27/22 0847 by Georgi Dior, RN ETT Mask Ventilation: Ea fredi (1); ETT Type: Cuffed, GUEST RELATIONS AGENT; ETT Size: 6 mm; Mac Blade: 3; Notes: Asleep, Pre-O2, Cricoid Pressure, Stylette; Attempts: 1; Laryngoscopy Grade: 2; ETT Placement Verified By: Auscultation, Capnometry, Visual; Secured at Teeth: 23 cm; Inserted by: S.Coronado, SHUTTLE FIXER; Removal Date: 02/26/22; Removal Time: 1406 02/26/22 1313 by Queenie Coronado CRNA 02/26/22 1406 by Queenie Coronado CRNA documented in this encounter Social History [...] OR Notes * Anesthesia Postprocedure Evaluation - Denita Reynoso MD - 02/26/2022 3:45 PM EDT Department of Anesthesiology Post-procedure Note Patient: Marco Antonio Xiong Procedure Summary Date: 02/26/22 Room / Location: [address] MAIN OR Anesthesia Start: 1301 Anesthesia Stop: 1420 Procedure: LARYNGOSCOPY, DIRECT, DIAGNOSIS, EXCEPT (WRVU 2.63) (N/A Throat) Diagnosis: (LEFT hypopharyngeal mass) Surgeons: Charlie Marte MD Responsible Provider: Denita Reynoso MD Anesthesia Type: general ASA Status: 3 All Anesthesia Providers: Anesthesiologist: Denita Reynoso MD SHUTTLE FIXER: Queenie Coronado CRNA Vitals Value Taken Time BP 151/62 02/26/22 1445 Temp 36.9 ??C (98.4 ??F) 02/26/22 1500 Pulse 59 02/26/22 1500 Resp 16 02/26/22 1500 SpO2 92 % 02/26/22 1500 Pain Level Patient Location: PACU/[facility] Level of Consciousness: Awake and Alert Pain Management: Satisfactory Analgesia PONV: None Cardiovascular Status: At Baseline and Hemodynamically Stable Respiratory Status: At Baseline and Supplemental O2 (NC or FM) Postoperative Fluid Status: Intravascular EUvolemia Possible Anesthetic Complications: NONE apparent at time of evaluation Final Primary Anesthesia Type: General (The anesthetic type performed was the same as planned.) Comments: DENITA REYNOSO MD * Anesthesia Preprocedure Evaluation - Denita Reynoso MD - 02/26/2022 11:26 AM EDT Pre-Anesthesia Evaluation for: Marco Antonio Xiong a 76 y.o. male. Procedure(s): LARYNGOSCOPY, DIRECT, DIAGNOSIS, EXCEPT (WRVU 2.63) Patient Active Problem List Diagnosis Date Noted ??? 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 No pertinent past medical history. Past Surgical History: Procedure Laterality Date ??? PRO [facility] EBUS GUIDED SAMPL 1/2 NODE STATION/STRUX N/A 02/23/2022 BRONCH, W ENDOBRONCHIAL ULTRASOUND (EBUS) GUIDED SAMPLING, 1/2 NODES (WRVU 4.71) performed by Bipin Moseley MD at [facility] MAIN OR ??? PRO [facility] EBUS DX/TX INTERVENTION PERPH LES N/A 02/23/2022 BRONCH, W EBUS DURING INTERVENTION FOR PERIPH LESION (WRVU 1.4) performed by Bipin Moseley MD at [facility] MAIN OR ??? PRO BRONCHOSCOPY RIGID FLEX W COMPUTER ASSIST IMG NAVIGATION N/A 02/23/2022 BRONCHOSCOPY,RIGID OR FLEX,WITH IMAGE GUIDANCE ( ROBOT / MONARCH ) performed by Bipin Moseley MD at [facility] OR ??? PRO BRONCHOSCOPY, DIAGNOSTIC W LAVAGE N/A 02/23/2022 BRONCHOSCOPY, RIGID OR FLEXIBLE, WITH BRONCHIAL ALVEOLAR LAVAGE (WRVU 2.88) performed by Bipin Moseley MD at [facility] MAIN OR ??? PRO BRONCHOSCOPY, TRANSBRON ASPIR BX N/A 02/23/2022 BRONCHOSCOPY W/TRANSBRONCHIAL NEEDLE ASPIRATION BX,FLEXIBLE (WRVU 4) performed by Bipin Moseley MD at [facility] OR ??? PRO BRONCHOSCOPY, TRANSBRONCH BIOPSY N/A 02/23/2022 BRONCHOSCOPY (FLEXIBLE OR RIGID) W\TRANSBRONC BX (WRVU 3.8) performed by Bipin Recinos MDat [facility] MAIN OR ??? PRO BRONCHOSCOPY, TREAT ASPIR PULM TREE N/A 02/23/2022 BRONCHOSCOPY, W/THERAPEUTIC ASPIRATION OF TRACHEOBRONCHIAL TREE (WRVU 3.16) performed by Bipin Moseley MD at [facility] MAIN OR ??? PRO THORACENTESIS NEEDLE/CATH PLEURA W/IMAGING N/A 02/23/2022 THORACENTESIS, NEEDLE OR CATHETER; WITH IMAGE GUIDANCE (WRVU 2.27) performed by Bipin Moseley MD at [facility] MAIN OR Social History Tobacco Use ??? Smoking status: Former Smoker Types: Cigarettes Quit date: 1986 Years since quittin.8 ??? Smokeless tobacco: Former User Substance Use Topics ??? Alcohol use: Not Currently Social History Substance and Sexual Activity Drug Use Never No Known Allergies Medications: MAR and/or home medications have been reviewed. Physical Exam: Preprocedure Vitals Current as of 02/26/22 1126 BP: 116/97 Pulse: 57 Resp: 19 SpO2: 98 Temp: 36.1 ??C (97 ??F) Height: 170.2 cm (5' 7) (02/26/22) Weight: 58 kg (127 lb 12.8 oz) (02/26/22) BMI: 20.01 IBW: 66.1 kg (145 lb 12.2 oz) Last edited 02/26/22 0800 by Currently displaying vitals information from multiple entries within 180 minutes of most recent vitals. Airway Assessment: Mallampati: II TM distance: >3 FB Neck ROM: full Cardiovascular Assessment: Rhythm: regular Rate: normal Pulmonary Assessment: unlabored breathing Dental Assessment: (+) upper dentures Misc Assessment: Other exam findings: On oxygen by nasal cannula Last Filed Perioperative Cognitive Screening Value Time User 4AT TOTAL Score: 0 02/25/2022 4:24 PM Katt Wiseman RN Anesthesia Plan: ASA 3 general, with a(n) intravenous induction 76 yo former smoker with asbestos exposure admitted 4 days ago for w/u lung nodule, lymphadenopathywith bronch/EBUS/thoracentesis now readmitted with pain, difficulty swallowing and left hypopharyngeal mass seen on CT for direct laryngoscopy/biopsy/PEG as needed pending exam. Of note, patient withtwo first degree relatives positive for MH (mother , son tested). Discussed risks/benefits GA with nontriggering anesthetic, MH precautions. Region - Other Informed Consent: Anesthetic plan and risks discussed with patient. Use of blood products discussed with patient who. Plan discussed with SHUTTLE FIXER. Anesthesia Screening documented in this encounter Miscellaneous Notes * Addendum Note - Queenie Coronado CRNA - 02/26/2022 4:59 PM EDT Addendum created 02/26/221658 by Queenie Coronado CRNA Intraprocedure Event edited documented in this encounter Plan of Treatment Upcoming Encounters Date Type Department Care Team (Late st Contact Info) Description 06/20/2024 10:00 AM EST Office Visit Hematology/Oncology at [address] [phone] [address]ia [address] HEMATOLOGY AND ONCOLOGY [place], [place] [phone] 06/20/2024 10:30 AM EST Infusion Hematology Oncology at [address] [phone] 07/04/2024 11:00 AM EST Office Visit Hematology/Oncology at [address] [phone] HEMATOLOGY AND ONCOLOGY [place], [place] [phone] 07/04/2024 11:30 AM EST Infusion Hematology Oncology at [address] [phone] documented as of this encounter Visit Diagnoses Not on filedocumented in this encounter Administered Medications Inactive Administered Medications - up to 3 most recent administrations Medication Order MAR Action Action Date Dose Rate Site dexAMETHasone (Decadron) injection Intravenous, PRN, Starting on Aileen 02/26/22 at 1318, Until Aileen 02/26/22 at 1420, Anesthesia Intra-op, Routine Given 02/26/2022 1:18 PM EDT 4 mg lactated ringers infusion Intravenous, CONTINUOUS PRN, Starting on Aileen 02/26/22 at 1301, Until Aileen 02/26/22 at 1420, Anesthesia Intra-op New Bag 02/26/2022 1:01 PM EDT propofoL (Diprivan) (10 mg/mL) infusion Intravenous, CONTINUOUS PRN, Starting on Aileen 02/26/22 at 1314, Until Aileen 02/26/22 at 1420, Anesthesia Intra-op, Routine New Bag 02/26/2022 1:14 PM EDT 200 mcg/kg/min 69.6 mL/hr propofoL (Diprivan) 10 mg/mL bolus injection (Anesthesia) Intravenous, PRN, Starting on Aileen 02/26/22 at 1318, Until Aileen 02/26/22 at 1420, Anesthesia Intra-op Given 02/26/2022 1:18 PM EDT 200 mg rocuronium (Zemuron) (10 mg/mL) multi-dose injection Intravenous, PRN, Starting on Aileen 02/26/22 at 1318, Until Aileen 02/26/22 at 1420, Anesthesia Intra-op, Routine Given 02/26/2022 1:18 PM EDT 50 mg sugammadex (Bridion) 100 mg/mL injection Intravenous, PRN, Starting on Aileen 02/26/22 at 1403, Until Aileen 02/26/22 at 1420, Anesthesia Intra-op, Routine Given 02/26/2022 2:03 PM EDT 200 mg documented in this encounter Care Teams Movie Theater Manager Relationship Specialty Start Date End Date Kadi Lane [place] [address] PCP - General Family Medicine 07/28/16 documented as of this encounter
--- OUTSIDE RECORDS SUMMARY | 2024-06-20 01:29 | XMS_ITS | Encounter Summary ---
Author Organization [facility] [place] [address] Care Team Providers Care Intake Man Name Role Phone Kadi Lane Primary Care Provider [phone] Encounter Details Date Type Department Care Team (Late st Contact Info) Description 02/25/2022 11:05 AM EDT Ancillary Procedure Radiology Library at [facility] [place] [place] [phone] Mildred Osorio MD [facility] [place] [address] Social History Tobacco Use Types Packs/Day Years [...] 10:00 AM EST Office Visit Hematology/Oncology at [address] [phone] Lia Barber, [address] HEMATOLOGY AND ONCOLOGY [place], [place] [phone] 06/20/2024 10:30 AM EST Infusion Hematology Oncology at [address] [phone] 07/04/2024 11:00 AM EST Office Visit Hematology/Oncology at [address] [phone] Lia Barber, [address] HEMATOLOGY AND ONCOLOGY [place], [place] [phone] 07/04/2024 11:30 AM EST Infusion Hematology Oncology at [address] [phone] documented as of this encounter Procedures Procedure Name Priority Date/Time Associated Diagnosis Comments FILM LIBRARY - STORAGE ONLY CT NECK Routine 02/25/2022 10:59 AM EDT documented in this encounter Results * Film Library- Storage Only CT Neck (02/25/2022 10:59 AM EDT) Narrative [facility] - 02/25/2022 10:59 AM EDT This exam is auto-finalizing. It's purpose is for storage only. Mildred Osorio MD IMG FILM LIBRARY ORD ERABLES Performing Organization Address City/State/[facility] Co de Phone Number [place], [place] documented in this encounter Visit Diagnoses Not on filedocumented in this encounter Care Teams Intake Man Relationship Specialty Start Date End Date Kadi [place] [address] PCP - General Family Medicine 07/28/16 documented as of this encounter
--- OUTSIDE RECORDS SUMMARY | 2024-06-20 01:29 | XMS_ITS | Encounter Summary ---
Author Organization [facility] [place] [address] Care Team Providers Care Alternative Energy Engineer Name Role Phone Kadi Lane Primary Care Provider [phone] Encounter Details Date Type Department Care Team (Latest Contact Info) Description 02/25/2022 7:25 PM EDT Ancillary Procedure Radiology Library at [facility] [place] [phone] Dysphagia, unspecified type Social History Tobacco Use [...] AM EST Office Visit Hematology/Oncology at [address] [phone] Lia Barber APRN [address] [place] [address] [place] [address] 06/20/2024 10:30 AM EST Infusion Hematology Oncology at [address] [phone] 07/04/2024 11:00 AM EST Office Visit Hematology/Oncology at [address] [phone] Lia Barber APRN [address] [place] [address] DR HEMATOLOGY AND ONCOLOGY [place], [place] [phone] 07/04/2024 11:30 AM EST Infusion Hematology Oncology at [address] [phone] documented as of this encounter Procedures Procedure Name Priority Date/Time Associated Diagnosis Comments REQUEST FOR 2ND READ CT NECK STAT 02/25/2022 7:15 PM EDT Dysphagia, unspecified type documented in this encounter Results * Request For 2nd [...] who have questions please contact the health medical care manager that requested your imaging first. ? Electronically signed by: Pratik Batista MD, [facility] ([phone]), at 02/26/2022 8:35 AM Narrative 02/26/2022 8:35 AM EDT EXAMINATION: REQUEST FOR 2ND READ CT NECK CLINICAL HISTORY: upper airway obstruction; Sending Institution [facility]; Date of exam 20220225; I believe a [...] CLINICAL HISTORY: upper airway obstruction; Sending Institution [facility]; Date of exam 20220225; I believe [...] patients who have questions please contactthe health medical care manager that requested your imaging first. Bipin Moseley MD IMG OUTSIDE INT ERPRETATION ORDERABLES documented in this encounter Visit Diagnoses Diagnosis Dysphagia, unspecified type documented in this encounter Care Teams Alternative Energy Engineer Relationship Specialty Start Date End Date Kadi Lane PA [address] [place] [address] PCP - General Family Medicine 07/28/16 documented as of this encounter
--- OUTSIDE RECORDS SUMMARY | 2024-06-20 01:29 | XMS_ITS | Encounter Summary ---
Author Organization [facility] [place] [address] Care Team Providers Care Fighter Pilot Name Role Phone Kadi Lane Primary Care Provider [phone] Encounter Details Date Type Department Care Team (Latest Contact Info) Description 06/19/2022 Travel Social History Tobacco Use Types Packs/Day [...] AM EST Office Visit Hematology/Oncology at [address] [phone] Lia Barber APRN [address] [place] [address] DR HEMATOLOGY AND ONCOLOGY [place], [place] [address] 06/20/2024 10:30 AM EST Infusion Hematology Oncology at [address] [phone] 07/04/2024 11:00 AM EST Office Visit Hematology/Oncology at [address] [phone] Lia Barber APRN [address] [place] [address] DR HEMATOLOGY AND ONCOLOGY [place], [place] [phone] 07/04/2024 11:30 AM EST Infusion Hematology Oncology at [address] [phone] documented as of this encounter Visit Diagnoses Not on filedocumented in this encounter Care Teams Fighter Pilot Relationship Specialty Start Date End Date Kadi Lane PA [address] [place] [address] PCP - General Family Medicine 07/28/16 documented as of this encounter
--- OUTSIDE RECORDS SUMMARY | 2024-06-20 01:29 | XMS_ITS | Encounter Summary ---
Author Organization [facility] [place] [address] Care Team Providers Care Corporate Risk Analyst Name Role Phone Kadi Lane Primary Care Provider [phone] Encounter Details Date Type Department Care Team (Latest Contact Info) Description 07/02/2022 Travel Social History Tobacco Use Types Packs/Day [...] AM EST Office Visit Hematology/Oncology at [address] [phone] Lia Barber APRN [address] [place] [address] DR HEMATOLOGY AND ONCOLOGY [place], [place] [address] 06/20/2024 10:30 AM EST Infusion Hematology Oncology at [address] [phone] 07/04/2024 11:00 AM EST Office Visit Hematology/Oncology at [address] [phone] Lia Barber APRN [address] [place] [address] DR HEMATOLOGY AND ONCOLOGY [place], [place] [phone] 07/04/2024 11:30 AM EST Infusion Hematology Oncology at [address] [phone] documented as of this encounter Visit Diagnoses Not on filedocumented in this encounter Care Teams Corporate Risk Analyst Relationship Specialty Start Date End Date Kadi Lane PA [address] [place] [address] PCP - General Family Medicine 07/28/16 documented as of this encounter
--- OUTSIDE RECORDS SUMMARY | 2024-06-20 01:30 | XMS_ITS | Encounter Summary ---
[place] [address] Care Team Providers Care Metalizing Machine Operator Name Role Phone Kadi Lane Primary Care Provider Encounter Details Date Type Department Care Team (Late st Contact Info) Description 02/20/2022 Telephone [place] [phone] Neelam Drummond Social History Tobacco Use Types Packs/Day Years Used Date Smoking Tobacco: Former Smokeless Tobacco: Former Sex and Gender Information Value Date Recorded Sex Assigned at Male 10/05/2023 6:23 PM EDT Gender Identity Male 10/05/2023 6:23 PM EDT Sexual Orientation Straight 10/05/2023 6: 23 PM EDT documented as of this encounter Miscellaneous Notes * Telephone Encounter - Neelam Drummond - 02/20/2022 4:50 PM EDT Copied from [facility] #[id number]. Topic: Specialty Dept CRMs - Generic Call >> Feb 13, 2022 11:49 AM Lala Beltran wrote: Specialist: none Relationship (if other than patient-full name): Ari, Thor[place] [facility] Reason for Call: Ari called to schedule PFT with basic bundle for patient. Patient is being seentoday 02/13 at 1:30pm documented in this encounter Plan of Treatment Upcoming Encounters Date Type Department Care Team (Late st Contact Info) Description 06/20/2024 10:00 AM EST Office Visit Hematology/Oncology at [address] [phone] [place] [address] 06/20/2024 10:30 AM EST Infusion Hematology Oncology at [address] [phone] 07/04/2024 11:00 AM EST Office Visit Hematology/Oncology at [address] [phone] [address] [place] [address] 07/04/2024 11:30 AM EST Infusion Hematology Oncology at [address] [phone] documented as of this encounter Visit Diagnoses Not on filedocumented in this encounter Care Teams Metalizing Machine Operator Relationship Specialty Start Date End Date Kadi Lane PA [place] [address] PCP - General Family Medicine 07/28/16 documented as of this encounter
--- OUTSIDE RECORDS SUMMARY | 2024-06-20 01:30 | XMS_ITS | Encounter Summary ---
[place] [address] Care Team Providers Care Heat Treat Technician Name Role Phone Kadi Lane Primary Care Provider Reason for Referral * Diagnostic Test (Routine) - Closed Specialty Diagnoses / Procedures Referred By Contac t Referred To Contact Radiology Diagnoses Abnormal weight loss Asbestos pneumoconiosis Procedures NM [facility] PET CT Skull Base to Mid-thigh Emerald Tatum DO [address] [place] [address] [place] [address] Referral ID Status Reason Start Date Expiration Date V isits Requested Visits Authorized [id number] Closed Specialty Service Requested 01/15/2022 07/16/2023 1 1 Reason for Visit * Diagnostic Test (Routine) - Closed Specialty Diagnoses / Procedures Referred By Contac t Referred To Contact Radiology Diagnoses Abnormal weight loss Asbestos pneumoconiosis Procedures NM L[facility] PET CT Skull Base to Mid-thigh Emerald Tatum DO [address] [place] [address] [facility] [place] [address] Referral ID Status Reason Start Date Expiration Date V isits Requested Visits Authorized [id number] Closed Specialty Service Requested 01/15/2022 07/16/2023 1 1 Encounter Details Date Type Department Care Team (Late st Contact Info) Description 01/30/2022 12:00 PM EDT - 01/30/2022 11:59 PM EDT Hospital Encounter [place] [address] Emerald Tatum, DO [address] [place] [address] Abnormal weight loss; Asbestos pneumoconiosis Discharge Disposition: Home Social History Tobacco Use Types Packs/Day Years Used Date Smoking Tobacco: Never Assessed Sex and Gender Information Value Date Recorded Sex Assigned at Male 10/05/2023 6:23 PM EDT Gender Identity Male 10/05/2023 6:23 PM EDT Sexual Orientation Straight 10/05/2023 6: 23 PM EDT documented as of this encounter Plan of Treatment Upcoming Encounters Date Type Department Care Team (Late st Contact Info) Description 06/20/2024 10:00 AM EST Office Visit Hematology/Oncology at [address] [phone] [address] HEMATOLOGY [place] [address] 06/20/2024 10:30 AM EST Infusion Hematology Oncology at [address] [phone] 07/04/2024 11:00 AM EST Office Visit Hematology/Oncology at [address] [phone] [address] HEMATOLOGY [place] [address] 07/04/2024 11:30 AM EST Infusion Hematology Oncology at [address] [phone] documented as of this encounter Procedures Procedure Name Priority Date/Time Associated Diagnosis Comments NM LACEY PET CT SKULL BASE TO MID-THIGH Routine 01/30/2022 12:15 PM EDT Abnormal weight loss Asbestos pneumoconiosis documented in this encounter Results * NM Lacey PET CT Skull Base to Mid-thigh (01/30/2022 12:15 PM EDT) Anatomical Region Laterality Modality Positron Emissio n Tomography (PET) Impressions 01/30/2022 4:55 PM EDT 1. ??4.3 cm FDG avid pleural-based mass [...] who have questions please contact the health critical care transport nurse that requested your imaging first. ? Electronically signed by: Neel Foster MD, [facility] ([phone]), at 01/30/2022 4:55 PM Narrative 01/30/2022 4:55 PM EDT EXAMINATION: [facility] PET CT SKULL BASE TO MID-THIGH CLINICAL HISTORY: Presence of underlying mass on CT Chest not excluded; mild ileocecal wall thickening and sclerotic hip bone; ? Paget's disease; asbestos related chest disease, abnormal weight loss TECHNIQUE: Following IV injection of 69-buvtdw-3-deoxyglucose (FDG) a standard uptake of approximately 60 [...] on axial image 119). This lesion was not present on remote PET/CT dated 08/21/2016. Non-FDG avid [...] the axial and visualized proximal appendicular skeleton. Procedure Note Neel Foster MD - 01/30/2022 EXAMINATION: [facility] PET CT SKULL BASE TO MID-THIGH CLINICAL HISTORY: Presence of underlying mass on CT Chest not excluded; mild ileocecalwall thickening and sclerotic hip bone; ? Paget's disease; asbestos relatedchest disease, abnormal weight loss TECHNIQUE: Following IV injection of 87-zcfins-2-deoxyglucose (FDG) astandard uptake of approximately 60 minutes, [...] regions of the neck and visualizedlower head. Partially visualized area of encephalomalacia in the righttemporoparietal region, consistent with prior infarct. No adenopathy. CHEST: 4.3 x 3 cm FDG avid pleural-based mass in the posterior right lower lobewithin an area of consolidated/atelectatic lung (centered on axial image 119).This lesion was not present on remote PET/CT dated 08/21/2016. Non-FDG avid bilateral calcified pleural plaques, stable to modestlyincreased in size from prior PET CT dated 08/21/2016. Moderate size non-FDG avidright pleural effusion, unchanged from prior PET/CT dated 08/21/2016. Small FDG avid right hilar adenopathy (axial image 98). Small FDG avid lymph node in the left hilum is favored to represent abenign reactive node. Small area of scarring in the posterior left lung base, unchanged comparedto prior study of 2017. Coronary and aortic calcifications. Small-moderate size hiatal hernia. ABDOMEN/PELVIS: Normal activity in all soft tissue regions. No adenopathy. Aortoiliac calcifications. SKELETON/EXTREMITIES: Mildly FDG avid heterogeneous sclerotic changes and diffuse corticalthickening in the left hemipelvis, sparing the sacrum, unchanged from prior PET/CTdated 08/21/2016 and consistent with Paget's disease. Normal activity all otherregions of the axial and visualized proximal appendicular skeleton. IMPRESSION 1. 4.3 cm FDG avid pleural-based mass in the posterior right lower lobe,highly suspicious for primary lung malignancy. 2. Small FDG avid right hilar adenopathy, suspicious for nodalmetastasis. 3. Non-FDG avid moderate-sized right pleural effusion, unchanged comparedto remote PET/CT of 08/21/2016. 4. Small FDG avid left hilar lymph node is unchanged compared to remotePET/CT of 08/21/2016 and favored to represent a benign reactive node. 5. No distant sites of metastasis. 6. Mildly FDG avid sclerotic changes and diffuse cortical thickening inthe left hemipelvis, sparing the sacrum, unchanged from PET/CT of 08/21/2016and consistent with Paget's disease. 7. Partially visualized area of encephalomalacia in the righttemporoparietal region, consistent with prior infarct. I have personally reviewed the image(s) and the resident's interpretationand agree with the findings, Neel Foster MD at 01/30/2022 4:55 PM Thank you for letting us participate in the care of this patient. If youare a health care provider and have any questions regarding this report,please contact the number below. For patients who have questions please contactthe health critical care transport nurse that requested your imaging first. Electronically signed by: Neel Foster MD, [facility]([phone]), at 01/30/2022 4:55 PM Emerald Tatum DO IMG PET ORDERABLE S documented in this encounter Visit Diagnoses Diagnosis Abnormal weight loss Loss of weight Asbestos pneumoconiosis Asbestosis documented in this encounter Administered Medications Inactive Administered Medications - up to 3 most recent administrations Medication Order MAR Action Action Date Dose Rate Site fludeoxyglucose (F-18) FDG injection 0-20 mCi 0-20 mCi, Intravenous, ONCE PRN, 1 dose, Starting on Wed01/30/22 at 1313, Until Wed01/30/22 at 1032, Per Protocol, Radiology Contrast, Routine Given 01/30/2022 10:32 AM EDT 10.6 mCi documented in this encounter Care Teams Heat Treat Technician Relationship Specialty Start Date End Date Kadi Lane [place] [address] PCP - General Family Medicine 07/28/16 documented as of this encounter
--- OUTSIDE RECORDS SUMMARY | 2024-06-20 01:30 | XMS_ITS | Encounter Summary ---
[place] [address] Care Team Providers Care Bridal Service Sales And Management Name Role Phone Kadi Lane Primary Care Provider [phone] Encounter Details Date Type Department Care Team (Late st Contact Info) Description 02/16/2022 Telephone [place] [address] Ari Urena Social History Tobacco Use Types Packs/Day Years Used Date Smoking Tobacco: Former Smokeless Tobacco: Former Sex and Gender Information Value Date Recorded Sex Assigned at Male 10/05/2023 6:23 PM EDT Gender Identity Male 10/05/2023 6:23 PM EDT Sexual Orientation Straight 10/05/2023 6: 23 PM EDT documented as of this encounter Miscellaneous Notes * Telephone Encounter - Ari Urena - 02/16/2022 10:51 AM EDT Spoke to patient's son Ronal and scheduled CT, MRI and follow up on 03/06/22. Patient would like to have labs drawn next week at [facility]. Faxed orders to [phone]. documented in this encounter Plan of Treatment Upcoming Encounters Date Type Department Care Team (Late st Contact Info) Description 06/20/2024 10:00 AM EST Office Visit Hematology/Oncology at [address] [phone] HEMATOLOGY AND ONCOLOGY [place], [place] [address] 06/20/2024 10:30 AM EST Infusion Hematology Oncology at [address] [phone] 07/04/2024 11:00 AM EST Office Visit Hematology/Oncology at [address] [phone] HEMATOLOGY AND ONCOLOGY [place], [place] [phone] 07/04/2024 11:30 AM EST Infusion Hematology Oncology at [address] [phone] documented as of this encounter Visit Diagnoses Not on filedocumented in this encounter Care Teams Bridal Service Sales And Management Relationship Specialty Start Date End Date Kadi Lane PA [address] [place] [address] PCP - General Family Medicine 07/28/16 documented as of this encounter
--- OUTSIDE RECORDS SUMMARY | 2024-06-20 01:30 | XMS_ITS | Encounter Summary ---
Author Organization [facility] [place] [place] [address] Care Team Providers Care Assembly Associate Name Role Phone Kadi Lane Primary Care Provider [phone] Reason for Visit * Auth/Cert Specialty Diagnoses / Procedures Referred By Contmarlys t Referred To Contact Diagnoses Hypopharyngeal mass Post Op Tracial Obstruction Charlie Marte MD [facility] [place] [address] [facility] Referral ID Status Reason Start Date Expiration Date Visits Re quested Visits Authorized [id number] 1 1 Encounter Details Date Type Department Care Team (Latest Contact Info) Description 02/23/2022 7:17 AM EDT - 02/23/2022 12:45 PM EDT Hospital Encounter [place] [id number] Bipin Moseley MD [facility] [place] [address] Lung nodule; Pulmonary mass Discharge Disposition: Home [...] Sign Reading Time Taken Comments Blood Pressure 156/64 02/23/2022 12:15 PM EDT Pulse 54 02/23/2022 12:15 PM EDT Temperature 36.5 ??C (97.7 ??F) 02/23/2022 12:44 PM E DT Respiratory Rate 20 02/23/2022 12:15 PM EDT Oxygen Saturation 98% 02/23/2022 12:15 PM EDT Inhaled Oxygen Concentration - - Weight 61.7 kg (136 lb) 02/23/2022 7:56 AM EDT Height 170.2 cm (5' 7) 02/23/2022 7:56 AM EDT Body Mass Index 21.3 02/23/2022 7:56 AM EDT documented in this encounter Discharge Instructions * Patient Instructions* Bipin Moseley MD - 02/23/2022 11:20 AM EDT Post-bronchoscopy patient instruction: Your procedure (bronchoscopy and thoracentesis) was completed successfully today (02/23/2022) by Dr. Bipin Moseley. We will be in contact with you to discuss your results as they return over the coming 3-5 business days. You may experience low grade fevers over the next 48 hours. You may cough up a small amount of blood. This is normal. You may have a sore throat, chest discomfort, hoarse voice, or have a tickle in your throat or a dry cough for a day or two. This is normal and usually gets better quickly. Using cough drops or gargling with warm salt water may help. Call our office immediately or present to the nearest emergency room if you develop shortness of breath, pain in your chest, coughing up large amounts of blood (about 1-2 tablespoons), or fever/chills last longer than 48 hours. If you have any questions, please call our office at . There is someone circulation man to speak with 07/12. Bipin Moseley MD, 02/23/2022, 11:20 AM Interventional Pulmonology Section of Pulmonary & Critical Care documented in this encounter Medications at Time of Discharge Medication Sig Dispensed Refills Start Date End Date aspirin EC 81 mg Tablet, Delayed Release (E.C.) Take 81 mg by mouth daily. omeprazole (PriLOSEC) 20 mg Capsule, Delayed Release(E.C.) Take 20 mg by mouth every morning. 02/09/2022 09/01/2023 documented as of this encounter Progress Notes * Janell Merchant, RN - 02/23/2022 12:07 PM EDT Chest xray performed and reviewed by Dr. Moseley. Pt may be discharged to home when SDP criteria met. No additional labs needed prior to discharge home. Pt is currently awake and alert and tolerating sips of clears. Denies nausea. Occasional nonproductive cough. Continue to monitor. documented in this encounter H&P Notes * Bipin Moseley MD - 02/23/2022 8:44 AM EDT Interventional Pulmonology Pre-Procedure History & Physical SECTION OF PULMONARY/CRITICAL CARE MEDICIE Procedure: Bronchoscopy, endobronchial ultrasound (EBUS), transbronchial lung biopsies Thoracentesis Reason for procedure: Lung nodule, Lymphadenopathy, and Pleural effusion See last note from Dr. Goodman. PHYSICAL EXAM: Patient Vitals for the past 8 hrs: BP Temp Temp src Pulse Resp SpO2 Height Weight 02/23/22 0756 139/62 36.2 ??C (97.2 ??F) Temporal 51 18 100 % 170.2 cm (5' 7) 61.7 kg (136 lb) Mental Status: Alert and oriented x3 Airway examination: Feasible Pulmonary: Clear to ausculation left, some decr BS R base CV: RRR, no murmurs or gallops ASA Grade: ASA III (Patient has severe systemic disease that is not incapacitating) Assessment & Plan: Risks, benefits and alternatives of the procedure were explained and all questions were answered Consent to be signed Proceed with procedure as stated Bipin Moseley MD, 02/23/2022, 8:44 AM Interventional Pulmonology Section of Pulmonary & Critical Care Pager: [phone] Source Note - Landen Goodman MD - 02/13/2022 11:00 AM EDT Images from the original note were not included. Thoracic Surgery Attending Outpatient Consultation Note Landen Goodman MD [place] [address] FAX: Date of Consultation: 02/13/2022 This consultation has been requested by PCP: ADRIANO Sheriff Referring Physician: Purpose for Consultation: RLL nodule HPI: Marco Antonio Xiong is a 76yoM with a PMH significant for a 43 year history of occupational asbestos exposure, presenting with a 4.3cm right lower lobe nodule that is FDG avid, without confirmatory biopsy. He initially presented to an ED on 12/19/21 with a 15lb weight loss over six months, abdominal pain, and diarrhea. Workup at the ER revealed a chronic plueropulmonary process on CXR. He was hemodynamically stable with normal respiratory status and so he was discharged and encouraged to follow up withhis PCP. Follow up imaging ordered by PCP demonstrated the posterior right lower lobe mass, along with right sided pleural effusion (which has been present since 2017). Subsequent PET scan demonstrated avidity of this nodule. Today, he says that he experiences some shortness of breath with stairs but denies cough, hemoptysis, wheeze, chest pain, fever, chills, nausea, vomiting, and dysphagia. He says that besides some shortness of breath and the weight loss he feels normal. In regards to his past medical history, he has Pagets disease, hyperlipidemia, diverticulosis, history of gastritis, nephrolithiasis, left inguinal hernia, and a CVA in 2006 (on aspirin). He sees hisP every 3-6 months and last had a colonoscopy in January 2022. In regards to his surgical history, he has had sinus surgery, EGD dilatation d/t stricture x2, and right inguinal hernia repair. In regards to his family history, his mother from malignant hyperthermia and his sister has had breast cancer and skin cancer. His son also experienced malignant hyperthermia, but was successfully treated and recovered. In regards to his social history, he smoked 20 years at 2 packs/day and quit 40 years ago. He quit drinking alcohol 40 years ago as well, and denies any history of heavy drinking. 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 He denies any history of hepatitis. Past Medical History: See above Past Surgical History: See above Medications: Outpatient Medications Marked as Taking for the 02/13/22 encounter (Office Visit) with Landen Goodman MD Medication Sig Dispense Refill ??? omeprazole (PriLOSEC) 20 mg Capsule, Delayed Release(E.C.) Take 20 mg by mouth every morning. Allergies: No Known Allergies Family History: See above Social History: See above REVIEW OF SYSTEMS: General: Denies fatigue, chills, night sweats. + weight loss Neuro: Denies seizure, TIA, CVA, WELLS, visual changes, diplopia, weakness/numbness in extremities Psychiatric: Denies psychiatric diagnoses Cardiovascular: Denies arrythmias, CAD, HTN, family history of cardiac disease, CHF, hyperlipidemia. Respiratory: Denies asthma, COPD, emphysema, cough, wheezing, stridor, hemoptysis, respiratory infection, TB or exposure to TB. + dyspnea with exertion GI: denies change in bowel habits : denies change in voiding habits Hematologic: Denies history of DVT, PE Endocrine: denies diabetes mellitus, denies thyroid disease. Musculoskeletal: Denies fractures, arthritis Integument: Denies skin cancer. Physical Exam: BP 144/65 (Patient Position: Sitting) Pulse 54 Temp 36 ??C (96.8 ??F) (Temporal) Resp 18 Ht167.4 cm (5' 5.91) Wt 62.5 kg (137 lb 12.6 oz) SpO2 98% BMI 22.30 kg/m?? General Appearance: Alert, cooperative, no distress, appears stated age, thin HEENT: PERRL, MMM, non-icteric Neck: Supple, symmetrical, trachea midline, no palpable cervical adenopathy; thyroid: not enlarged,symmetric, no tenderness/mass/nodules; no carotid bruit or JVD Lungs: Clear to auscultation bilaterally, respirations unlabored, no wheezes, crackles or ronchi. Heart: Regular rate and rhythm, S1 and S2 normal, no murmur, rub, or gallop Abdomen: Soft, non-tender, bowel sounds normo-active in all four quadrants, no masses, no organomegaly Extremities: Extremities normal, no cyanosis, clubbing. no edema Neurologic: A+Ox3, cranial nerves II-XII grossly intact Musculoskeletal: 4/5 throughout with normal gait Diagnostics: I have independently visualized all relevant imaging studies, including: CXR (12/19/21): Chronic pleuroparenchymal process in right lung base. Density along superior border of the process could represent area of round atelectasis noted on the preceding chest CT, mass, or infiltrate. 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 CT Chest (01/01/22): Unable to view images, report only at time of clinic visit Features suggestive of asbestos-related chest disease [id number] area of likely round atelectasis or scarring in posterior basal segment of right lower lobe. Presence of underlying mass could not be definitely excluded, this focus is increased in prominence compared to prior exam from 09/02/20. Given this increase in size, further evaluation with PET/CT may be obtained. PET (01/30/22): 1. 4.3 cm FDG avid pleural-based mass [...] right temporoparietal region, consistent with prior infarct. Assessment: This is a 76 y.o. male with asbestos exposure and FDG avid 4.3cm RLL nodule concerning for malignancy, cT2N?, with long standing (since 2016) pleural effusion. Biopsy will need to be obtained to confirm this and for further treatment planning. Plan: In brief this is a very pleasant 76-year-old male that presents to me with a 4.3 x 3 cm FDG avid pleural-based mass in the posterior right lower lobe. I took some time to go over his imaging including his CTs of the chest which we unfortunately do not have but his PET scan from January 30, 2022. Of note on the scan, the right lower lobe lung mass is FDG avid. Curiously he does have a pleural effusion within this right chest, however the fluid nor the pleural light up which would suggestthis is reactionary. Further this pleural effusion has been present for quite some time, specifically dating back to 2016. I spent some time going over the natural history of lung nodules and lung masses and lung cancer, the needed criteria for staging, and the neck steps if this does prove to be a biopsy proven lung cancer. I told him that first we would need to start with a biopsy in the operating room. We would likely consult our interventional pulmonary colleagues to assist with this. This would involve doing a flexible bronchoscopy, and navigational bronchoscopy to biopsy the lesion, endobronchial ultrasound with biopsy to sample the lymph nodes, and a thoracentesis to sample the pleural fluid. I told them that if this is just the mass and the lymph nodes are negative and the pleural fluid is negative we have 2 options of either proceeding forward to surgery or having induction chemotherapy. In both cases he would need chemotherapy given the size of the nodule. If the lymph nodes are positive then we would strongly consider induction chemotherapy first followed by surgical resection. In the case thatthe fluid cytology shows cancer cells, this would be stage IV disease and our treatment goals wouldshift from curative to palliation. I then spent some time answering their questions and concerns. We will speak with our interventional pulmonary colleagues to try to get the EBUS navigational bronchoscopy and thoracentesis schedule for the same day. We will also need a CT with contrast as well as a brain MRI to completely stage this. My plan is to meet with him on March 06 in order to have the CT with contrast and the brain MRIcompleted. At that time we hope to have the pathology results back from their biopsies. Additionally they have been gracious enough to complete pulmonary function testing scheduled for later this afternoon. 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 Of note his son was diagnosed with this and his mother from this. Given that it is an autosomal dominant disorder, it is high likelihood that Mr. Sood has malignant hyperthermia. We will reach out to our anesthesia colleagues to schedule preoperative testing and make sure that proper measures are in place for both of these procedures that would likely require general anesthesia: His biopsy and his surgical procedure should he prove to be a candidate. I spent the remainder of the appointment answering her questions and concerns. Plan of Management: 1. Navigational bronchoscopy, EBUS, thoracentesis of right side with cytology 2. CT w/ contrast: to compare with prior imaging 3. Brain MRI: to assess for metastasis 4. Pulmonary Function Tests: to assess fitness for possible resection 5. CBC, CMP 6. EKG 7. For anesthesia preop, assume patient has malignant hyperthermia 8. 30 minutes of aerobic exercise daily, at minimum. Discussed importance of this prior to and during treatment. 9. Call with any questions I have had a wonderful time meeting Mr. Xiong and his family. I look forward to seeing them in acouple of weeks time after the biopsy results are back. Landen Goodman MD Thoracic Surgery documented in this encounter Miscellaneous Notes * Op Note - Bipin Moseley MD - 02/23/2022 9:41 AM EDT Images from the original note were not included. Interventional Pulmonology Robotic Bronchoscopy with EBUS-TBNA Operative Note SECTION OF PULMONARY & CRITICAL CARE MEDICINE PROCEDURE: Bronchoscopy with EBUS-Guided Transbronchial Needle Aspiration, robotic and radial EBUS / fluoro guided TBNA, TBBx, BAL, therapeutic aspiration of secretions Date / Time: 02/23/2022 / 11:08 AM Location: Endoscopy Procedure Attending: Dr. Moseley was present for the entire procedure. Others Present: nursing, anesthesia Indication(s) / Pre-Procedure Diagnosis: Lung nodule PRE-PROCEDURE EVALUATION: Pre-procedure checks were completed. This [...] and side (laterality). PROCEDURE IN DETAIL: The 1T-H190 bronchoscope was inserted into the ETT. The trachea, bilateral mainstem bronchi, and the bilateral segmental bronchi were all visualized and no obvious endobronchial lesions were noted, though there were moderate secretions, primarily in the RLL that were therapeutically aspirated. The bronchoscope was removed. The C3[employer] robotic system was used for pre-procedure planning, including 3D rendering with image post-processing on an independent workstation. The [employer] robotic system was then used for intra-procedure [...] COMPLICATIONS: No immediate complications noted POST-PROCEDURE DIAGNOSIS: RLL nodule, hilar adenopathy SPECIMENS REMOVED: Yes RECOMMENDATIONS: Await pathology results Bipin Moseley MD Chief, Section of Pulmonary and Critical Care Medicine [address] Room [address] [place] [address] Phone [facility] Generic: [phone] [email or web address] Pager #[phone] * Op Note - Bipin Moseley MD - 02/23/2022 9:41 AM EDT Images from the original note were not included. INTERVENTIONAL PULMONOLOGY PROCEDURE NOTE SECTION OF PULMONARY & CRITICAL CARE MEDICINE PROCEDURE: right ultrasound guided thoracentesis Date / Time: 02/23/2022 11:12 AM Location: OR Procedure Attending: Dr. Moseley was present for the entire case. Others Present: nursing, anesthesia Indication(s) / Pre-Procedure Diagnosis: pleural effusion PRE-PROCEDURE EVALUATION: Pre-procedure checks were completed. This [...] moderate systemic disease with functional limitations Monitoring: Continued intraop monitoring Time Out: A time out was performed prior to starting the procedure. Time out includes correct patient identity, agreement on procedure to be performed as stated on the informed consent, correct site and side (laterality). PROCEDURE IN DETAIL: The patient was placed in a left lateral decubitus position. An ultrasound examination of the rightchest was performed which revealed a moderate hyperechoic effusion and normal lung sliding with normal diaphragmatic movement. An appropriate site for pleural access was marked on the superior surface of the right 9th rib, and 5 mL of 1 % lidocaine was used for local anesthesia. A 4mm incision was made, and an 8F catheter was inserted without difficulty. 300mL of turbid brownish fluid was removedwithout difficulty. The procedure was successfully completed. A post procedural chest x-ray was obtained. Estimated Blood Loss: Minimal COMPLICATIONS: No immediate complications noted POST-PROCEDURE DIAGNOSIS: Pleural Effusion SPECIMENS REMOVED: Yes RECOMMENDATIONS: Await pleural fluid analysis documented in this encounter Plan of Treatment Upcoming Encounters Date Type Department Care Team (Late st Contact Info) Description 06/20/2024 10:00 AM EST Office Visit Hematology/Oncology at [address] [phone] [place] [address] 06/20/2024 10:30 AM EST Infusion Hematology Oncology at [address] [phone] 07/04/2024 11:00 AM EST Office Visit Hematology/Oncology at [address] [phone] HEMATOLOGY AND ONCOLOGY [place], [place] [address] 07/04/2024 11:30 AM EST Infusion Hematology Oncology at [address] [phone] documented as of this encounter Procedures Procedure Name Priority Date/Time Associated Diagnosis Comments HC BODY FLUID CELL COUNT Routine 02/23/2022 12:30 PM EDT XR CHEST ONE VIEW STAT 02/23/2022 11: 52 AM EDT NON-BULL FIDDLE PLAYER FINAL REPORT Routine 02/23/2022 11:35 AM EDT CYTOPATHOLOGY NON-GYNECOLOGICAL Routine 02/23/2022 11:35 AM EDT HC BODY FLUID CULTURE Routine 02/23/2022 11:21 AM EDT CYTOPATHOLOGY NON-GYNECOLOGICAL Routine 02/23/2022 11:21 AM EDT HC PROTEIN,TOTAL,BODY FLUID Routine 02/23/2022 11:14 AM EDT HC LACTIC DEHYDROGENASE Routine 02/23/2022 11:14 AM EDT HC GLUCOSE BODY FLUID Routine 02/23/2022 11:14 AM EDT HC PH BODY FLUID Routine 02/23/2022 11:1 4 AM EDT XR FLUORO NO RAD <1HR - OR USE Routine 02/23/2022 10:55 AM EDT NON-BULL FIDDLE PLAYER FINAL REPORT Routine 02/23/2022 10:53 AM EDT CYTOPATHOLOGY NON-GYNECOLOGICAL Routine 02/23/2022 10:53 AM EDT NON-BULL FIDDLE PLAYER FINAL REPORT Routine 02/23/2022 10:51 AM EDT CYTOPATHOLOGY NON-GYNECOLOGICAL Routine 02/23/2022 10:51 AM EDT NON-BULL FIDDLE PLAYER FINAL REPORT Routine 02/23/2022 10:50 AM EDT CYTOPATHOLOGY NON-GYNECOLOGICAL Routine 02/23/2022 10:50 AM EDT NON-BULL FIDDLE PLAYER FINAL REPORT Routine 02/23/2022 10:29 AM EDT CYTOPATHOLOGY NON-GYNECOLOGICAL Routine 02/23/2022 10:29 AM EDT SURGICAL PATHOLOGY REPORT Routine 02/23/2022 10:27 AM EDT SPECIMEN TO PATHOLOGY Routine 02/23/2022 10:27 AM EDT Bronchoscopy, Rx Aspir Pulm Tree ([id number]) Yes 02/23/2022 9:23 AM EDT Lung mass Bronchoscopy, Diagnostic W Lavage ([id number]) Yes 02/23/2022 9:23 AM EDT Lung mass Bronchoscopy, Transbron Aspir Bx ([id number]) Yes 02/23/2022 9:23 AM EDT Lung mass Bronchoscopy, Transbronch Biopsy ([id number]) Yes 02/23/2022 9:23 AM EDT Lung mass [facility] Ebus Guided Sampl 1/2 Node Station/Strux ([id number]) Yes 02/23/2022 9:23 AM EDT Lung mass [facility] Ebus Dx/Tx Intervention Perph Les ([id number]) Yes 02/23/2022 9:23 AM EDT Lung mass Thoracentesis Needle/Cath Pleura W Imaging ([id number]) Yes 02/23/2022 9:23 AM EDT Lung mass Bronchoscopy Rigid Flex W Computer Assist Img Navigation ([id number]) Yes 02/23/2022 9:23 AM EDT Lung mass HEMOGRAM Routine 02/23/2022 7:36 AM EDT Lung nodule Pulmonary mass DIFFERENTIAL, AUTOMATED Routine 02/23/2022 7:36 AM EDT Lung nodule Pulmonary mass HC CBC,PLT & AUTO DIFF Routine 7:36 AM EDT Lung nodule Pulmonary mass PHOSPHORUS Routine 02/23/2022 7:36 AM EDT COMPREHENSIVE METABOLIC PANEL Routine 02/23/2022 7:36 AM EDT Lung nodule Pulmonary mass documented in this encounter Results * (ABNORMAL) Cell Count Body Fluid Pleural Fluid (02/23/2022 12:30 PM EDT) Body Fluid Source Pleural Fl M [facility] Color, Fld [place] [facility] Appearance, Fld Slightly Cloudy [facility] WBC Count, Fld 733(H) <=499 /mcl [facility] Comment: Body Fluid was manually performed due to quality of specimen. The reported WBC value may include mesothelial cells-lining cells. Results may be inaccurate due to presence of many degenerated cells Counts may be inaccurate due to presence of debris All body fluid results should always be interpreted in light of the total clinical presentation of the patient, including clinical history, data from additional tests and other appropriate information. Polymorphonuclear cells BF % Not Measured % [facility] Comment: Unable to perform accurate differential due to cellular degeneration Polymorphonuclear cell percent and absolute values may contain Neutrophils, Eosinophils, and Basophils. Body fluid smear will be scanned manually for concordance. Mononuclear cells BF % Not Measured % [facility] Comment: Mononuclear cell percent and absolute values may contain Lymphocytes and Monocytes. Body fluid smear will be scanned manually for concordance. Polymorphonuclear cells BF ABS Not Measured /[facility] Comment: Polymorphonuclear cell percent and absolute values may contain Neutrophils, Eosinophils, and Basophils. Body fluid smear will be scanned manually for concordance. Mononuclear cells BF ABS Not Measured /[facility] Comment: Mononuclear cell percent and absolute values may contain Lymphocytes and Monocytes. Body fluid smear will be scanned manually for concordance. Pleural Fluid 02/23/2022 12: 30 PM EDT 02/23/2022 12:40 PM EDT Narrative Resulting Agency Comment Spec In Lab Bipin Moseley MD BODY FLUIDS AND STOOLS ORDERABLES [facility] [place] [address] * XR Chest One View (02/23/2022 11:52 AM EDT) Anatomical Region Laterality Modality Chest N/A Digital Radiogra phy Impressions 02/23/2022 11:55 AM EDT 1. ??Interval decrease with small residual right pleural effusion. ??No pneumothorax. 2. ??Stable right lung base pulmonary mass = 4 cm. 3. ??Stable bilateral calcified pleural plaques, consistent with asbestos related pleural disease. Thank you for letting us participate in the care of this patient. ??If you are a health care provider and have any questions regarding this report, please contact the number below. ??For patients who have questions please contact the health caretaker grounds that requested your imaging first. ? Electronically signed by: Bipin Christensen DO, [facility] ([phone]), at 02/23/2022 11:55 AM Narrative 02/23/2022 11:55 AM EDT EXAMINATION: XR CHEST ONE VIEW CLINICAL HISTORY: 76-year-old male status post bronchoscopy and right thoracentesis. ??Screening for pneumothorax. TECHNIQUE: A single AP portable [...] plaques, unchanged configuration as compared to prior. ??There is no pneumothorax. ??There is stable volume loss within the right hemithorax. ??The right lung base mass is limited evaluation but appears grossly stable as compared to prior, measuring up to 4 cm in diameter. There is no new focal pulmonary nodule identified. Accounting for rotation, trachea is midline. ??Hilar structures are limited evaluation. The cardia mediastinal contours are unchanged. ??There is stable mild enlargement of the cardiac silhouette. Visualized structures within the superior abdomen inferior neck are within normal limits. There are degenerative changes of visualized spine. Procedure Note Bipin Christensen DO - 02/23/2022 EXAMINATION: XR CHEST ONE VIEW CLINICAL HISTORY: 76-year-old male status post bronchoscopy and right thoracentesis. Screening for pneumothorax. TECHNIQUE: A single AP portable semiupright radiograph the chest wasobtained. COMPARISON: Correlation is made to CT of the chest dated February 23, 2022. Comparison is made to multiple prior chest radiograph examinations, themost recent which is dated December 19, 2021. FINDINGS: The patient is rotated to the left, limiting evaluation. There is been interval decrease with small residual right pleuraleffusion. There are bilateral calcified pleural plaques, unchanged configurationas compared to prior. There is no pneumothorax. There is stable volumeloss within the right hemithorax. The right lung base mass is limitedevaluation but appears grossly stable as compared to prior, measuring up to 4 cm indiameter. There is no new focal pulmonary nodule identified. Accounting for rotation, trachea is midline. Hilar structures arelimited evaluation. The cardia mediastinal contours are unchanged. There is stable mildenlargement of the cardiac silhouette. Visualized structures within the superior abdomen inferior neck arewithin normal limits. There are degenerative changes of visualized spine. IMPRESSION 1. Interval decrease with small residual right pleural effusion. No pneumothorax. 2. Stable right lung base pulmonary mass = 4 cm. 3. Stable bilateral calcified pleural plaques, consistent with asbestosrelated pleural disease. Thank you for letting us participate in the care of this patient. If youare a health care provider and have any questions regarding this report,please contact the number below. For patients who have questions please contactthe health caretaker grounds that requested your imaging first. Bipin Moseley MD IMG DX ORDERABL ES * Non-Car Spotter Final Report (02/23/2022 11:35 AM EDT) Diagnosis Discussion [id number] ? Location: [facility]; [facility]; The signing pathologist has (i) examined the relevant preparation(s) for the specimen(s) and (ii) rendered or confirmed the diagnosis(es). . ? Non-Car Spotter Final DIAGNOSIS See Discussion Electronically signed by: ?Wilfredo Dorman MD Verified: ??03/02/2022 10:38 ??Cytopathologist Performed at: ??-[facility] [place] Dept. of Pathology, [place], [place] DISCUSSION Pleural fluid (thoracentesis): The sample consists almost entirely of abundant, amorphous/acellul ar material. No malignant cells are seen. Recommend clinical correlation. special stains (performed on cell block) - GMS (silver) and AFB: No microorganisms seen. CLINICAL INFORMATION Specimen Source : Pleural fluid (thoracentesis) Pertinent Clinical Data and Significant Therapy: Lung mass/robotic bronch with EBUS/thoracentesi s Clinical Impression : Pleural fluid Pertinent Radiologic Findings ??: (not provided) Gross Description: Received ??fresh, approximately 220 mL total volume of ?? cloudy, brown fluid. Total Preparation: Liquid-Based Prep 1; Cell Block 1. 03/02/2022 10:38 AM EDT [facility] Pleural Fluid 02/23/2022 11: 35 AM EDT 02/23/2022 11:35 AM EDT Bipin Moseley MD PATHOLOGY/CYTOL OGY ORDERABLES Performing Organization Address City/[facility]/ZIP Co de Phone Number [facility] [place] [id number] * Cytopathology Non-Gynecological (02/23/2022 11:35 AM EDT) AP Specimen 02/23/2022 11:3 5 AM EDT 02/23/2022 11:35 AM EDT Narrative [facility] - 02/23/2022 11:35 AM EDT Specimen requisition ordered. ??Separate Pathology report to follow Bipin Moseley MD PATHOLOGY/CYTOL OGY ORDERABLES [facility] [place] [address] * Cytopathology Non-Gynecological (02/23/2022 11:21 AM EDT) AP Specimen 02/23/2022 11:2 1 AM EDT 02/23/2022 11:21 AM EDT Narrative [facility] - 02/23/2022 11:21 AM EDT Specimen requisition ordered. ??Separate Pathology report to follow Bipin Moseley MD PATHOLOGY/CYTOL OGY ORDERABLES Performing Organization Address [facility]/ZIP Co de Phone Number [facility] [place] [address] * Body Fluid Culture, Aerobic Pleural Fluid (02/23/2022 11:21 AM EDT) Body Fluid Culture No growth [facility] Gram Stain Cytocentrifuge Gram Stain performed No Neutrophils seen. No microorganisms seen. [facility] Pleural Fluid 02/23/2022 11: 21 AM EDT 02/23/2022 12:29 PM EDT Comment:Right Narrative Resulting Agency Comment Spec In Lab Bipin Moseley MD MICROBIOLOGY - GENERAL ORDERABLES Performing Organization Address [facility] Co de Phone Number [facility] [place] [address] * Glucose Level Body Fluid Pleural, Right (02/23/2022 11:14 AM EDT) Glucose, Fluid 12 mg/dL [facility] Comment: Reference intervals are unavailable for this test in body fluids. Comparison of this result with the concentration in blood, serum, or plasma is recommended. This test has not been cleared by the [place] FDA. Performance characteristics of this test for the analysis of body fluids were determined by [facility] in accordance with CLIA requirements. This laboratory is qualified under CLIA to perform high-complexity testing. Gluc, Fld Type Pleural, Right [facility] Pleural, Right 02/23/2022 11 :14 AM EDT 02/23/2022 12:14 PM EDT Narrative Resulting Agency Comment Spec In Lab Bipin Moseley MD BODY FLUIDS AND STOOLS ORDERABLES Performing Organization Address [facility] Co de Phone Number [facility] [place] [address] * pH Body Fluid Pleural, Right (02/23/2022 11:14 AM EDT) pH, Fluid 7.09 [facility] Comment: Reference intervals are unavailable for this test in body fluids. Comparison of this result with the concentration in blood, serum, or plasma is recommended. This test has not been cleared by the [place] FDA. Performance characteristics of this test for the analysis of body fluids were determined by [facility] in accordance with CLIA requirements. This laboratory is qualified under CLIA to perform high-complexity testing. pH, Fld Type Pleural, Right [facility] Pleural, Right 02/23/2022 11 :14 AM EDT 02/23/2022 12:14 PM EDT Narrative Resulting Agency Comment Spec In Lab Bipin Moseley MD BODY FLUIDS AND STOOLS ORDERABLES Performing Organization Address [facility] Co de Phone Number [facility] [place] [address] * Protein Level Body Fluid Pleural, Right (02/23/2022 11:14 AM EDT) Protein, Fluid 4.7 g/dL [facility] Comment: Reference intervals are unavailable for this test in body fluids. Comparison of this result with the concentration in blood, serum, or plasma is recommended. This test has not been cleared by the [place] FDA. Performance characteristics of this test for the analysis of body fluids were determined by [facility] in accordance with CLIA requirements. This laboratory is qualified under CLIA to perform high-complexity testing. Prot, Fld Type Pleural, Right [facility] Pleural, Right 02/23/2022 11 :14 AM EDT 02/23/2022 12:14 PM EDT Narrative Resulting Agency Comment Spec In Lab Bipin Moseley MD BODY FLUIDS AND STOOLS ORDERABLES Performing Organization Address [facility] Co de Phone Number [facility] [place] [address] * Lactate Dehydrogenase Body Fluid Pleural, Right (02/23/2022 11:14 AM EDT) Lactate Dehydrogenase, Fluid >2,500 unit/L [facility] Comment: Reference intervals are unavailable for this test in body fluids. Comparison of this result with the concentration in blood, serum, or plasma is recommended. This test has not been cleared by the [place] FDA. Performance characteristics of this test for the analysis of body fluids were determined by [facility] in accordance with CLIA requirements. This laboratory is qualified under CLIA to perform high-complexity testing. LDH, Fld Type Pleural, Right [facility] Pleural, Right 02/23/2022 11 :14 AM EDT 02/23/2022 12:14 PM EDT Narrative Resulting Agency Comment Spec In Lab Bipin Moseley MD BODY FLUIDS AND STOOLS ORDERABLES [facility] [place] [id number] * XR Fluoro No Rad <1Hr - OR Use (02/23/2022 10:55 AM EDT) Narrative Dicom, Auditing User - 02/23/2022 10:56 AM EDT This exam is auto-finalizing. No interpretation was done. Bipin Moseley MD IMG FLUORO JAIROAiyana APARICIO * Non-Car Spotter Final Report (02/23/2022 10:53 AM EDT) Diagnosis Discussion [id number] ? Location: [facility]; [facility]; A The signing pathologist has (i) examined the relevant preparation(s) for the specimen(s) and (ii) rendered or confirmed the diagnosis(es). . ? Non-Car Spotter Final DIAGNOSIS See Discussion Electronically signed by: ?Wilberto Castillo MD Verified: ??02/26/2022 13:44 ??Pathologist Performed at: ??-[facility] – [place], [place] Dept. of Pathology, [place], [place] DISCUSSION Lung, right lower lobe (Navigation-guided FNA): Predominantly ciliated respiratory epithelial cells and blood. The material might not be hr representative of the target lesion. Clinical and radiologic correlation is required. Cell block was examined. ?? Additional multiple deeper levels were examined. Please see also the concurrent surgical specimen, [id number]. CLINICAL INFORMATION Specimen Source : Lung, right lower lobe (Navigation-guided FNA, assisted) Pertinent Clinical Data and Significant Therapy: Lung mass/Robotic bronch with EBUS/Thoracentesis / GA/Pradip Clinical Impression : Right lower lobe Pertinent Radiologic Findings ??: (not provided) Gross Description: Received in Formalin approximately 90 mL total volume of clear, colorless fluid, with clots. Total Preparation: Diff-Quik 8; Pap Stain 8; Cell Block 1. Fine Needle Aspiration Immediate Assessment: Evaluation Episode #1 (2 slide): Inadequate for final diagnosis. Mostly blood and a few respiratory epithelial cells. Evaluation Episode #2 (1 slide): Inadequate for final diagnosis. Mostly blood; respiratory epithelial cells and debris. Evaluation Episode #3 (1 slide): Inadequate for final diagnosis. Blood, respiratory epithelial cells. Evaluation Episode #4 (1 slide): Inadequate for final diagnosis. . CLINICAL INFORMATION Respiratory epithelial cells and blood. Evaluation Episode #5 (1 slide): Inadequate for final diagnosis. Respiratory epithelial cells and blood. Evaluation Episode #6 (2 slide): Inadequate for final diagnosis. Rare cluster of atypical cells. Immediate Assessment by: Wilberto Castillo MD. Note: The above attending cytopathologist personally examined the Immediate Assessment slides and rendered the Immediate Assessment. Such assessments are preliminary; see Diagnosis and Discussion for final interpretation. 02/26/2022 1:44 PM EDT [facility] RIGHT LUNG STRUCTURE / Unknown 02/23/2022 10:53 AM EDT 02/23/2022 10:53 AM EDT Bipin Moseley MD PATHOLOGY/CYTOL OGY ORDERABLES [facility] [place] [address] * Cytopathology Non-Gynecological (02/23/2022 10:53 AM EDT) AP Specimen 02/23/2022 10:5 3 AM EDT 02/23/2022 10:53 AM EDT Narrative [facility] - 02/23/2022 10:53 AM EDT Specimen requisition ordered. ??Separate Pathology report to follow Bipin Moseley MD PATHOLOGY/CYTOL OGY ORDERABLES [facility] [place] [address] * Non-Car Spotter Final Report (02/23/2022 10:51 AM EDT) Diagnosis Discussion [id number] ? Location: [facility]; [facility]; The signing pathologist has (i) examined the relevant preparation(s) for the specimen(s) and (ii) rendered or confirmed the diagnosis(es). . ? Non-Car Spotter Final DIAGNOSIS Negative for Malignancy Electronically signed by: ?Wilberto Castillo MD Verified: ??02/25/2022 17:00 ??Pathologist Performed at: ??-[facility] – [place], [place] Dept. of Pathology, [place], [place] DISCUSSION Lymph node, 11R (EBUS-guided FNA): Scant fragments of lymphoid tissue are present, ?consistent with focal lymph node sampling. No overtly cytologically malignant cells seen. The material might not be fully hr representative of the target lesion. Clinical and radiologic correlation is required. CLINICAL INFORMATION Specimen Source : Lymph node, 11R (EBUS-guided FNA) Pertinent Clinical Data and Significant Therapy: Lung mass/ Robotic bronch with EBUS/Thoracentes is/ LINA/ Pradip Clinical Impression : 11R Pertinent Radiologic Findings ??: (not provided) Gross Description: Received ??in Formalin approximately 50 mL total volume of ?? cloudy, bloody fluid, with clots. Total Preparation: Cell Block 1. 02/25/2022 5:00 PM EDT [facility] LYMPH NODE SPECIMEN / Unknown 02/23/2022 10:51 AM EDT 02/23/2022 10:51 AM EDT Bipin Moseley MD PATHOLOGY/CYTOL OGY ORDERABLES Performing Organization Address [facility] Co de Phone Number [facility] [place] [address] * Cytopathology Non-Gynecological (02/23/2022 10:51 AM EDT) AP Specimen 02/23/2022 10:5 1 AM EDT 02/23/2022 10:51 AM EDT Narrative [facility] - 02/23/2022 10:51 AM EDT Specimen requisition ordered. ??Separate Pathology report to follow Bipin Moseley MD PATHOLOGY/CYTOL OGY ORDERABLES Performing Organization Address [facility] Co de Phone Number [facility] [place] [address] * Non-Car Spotter Final Report (02/23/2022 10:50 AM EDT) Diagnosis Discussion [id number] ? Location: [facility]; [facility]; A The signing pathologist has (i) examined the relevant preparation(s) for the specimen(s) and (ii) rendered or confirmed the diagnosis(es). . ? Non-Car Spotter Final DIAGNOSIS Negative for Malignancy Electronically signed by: ?Dandy EMERSON, Wilfredo Lincoln Verified: ??03/02/2022 10:04 ??Cytopathologis t Performed at: ??-[facility] – [place], [place] Dept. of Pathology, [place], [place] DISCUSSION Lung: right lower lobe (bronchial alveolar lavage) - Respiratory epithelial cells, neutrophils, macrophages, a few eosinophils, and debris present. (Cell block was examined.) CLINICAL INFORMATION Specimen Source : Lung: right lower lobe (bronchial alveolar lavage) Pertinent Clinical Data and Significant Therapy: Lung mass/robotic bronch with EBUS/thoracentes is Clinical Impression : Right lower lobe BAL Pertinent Radiologic Findings ??: (not provided) Gross Description: Received ??fresh, approximately 8 mL total volume of ?? cloudy, red fluid. Total Preparation: Liquid-Based Prep 1; Cell Block 1. 03/02/2022 10:04 AM EDT [facility] BRONCHIAL STRUCTURE / Unknown 02/23/2022 10:50 AM EDT 02/23/2022 10:50 AM EDT Bipin Moseley MD PATHOLOGY/CYTOL OGY ORDERABLES [facility] [place] [address] * Cytopathology Non-Gynecological (02/23/2022 10:50 AM EDT) AP Specimen 02/23/2022 10:5 0 AM EDT 02/23/2022 10:50 AM EDT Narrative [facility] - 02/23/2022 10:50 AM EDT Specimen requisition ordered. ??Separate Pathology report to follow Bipin Moseley MD PATHOLOGY/CYTOL OGY ORDERABLES Performing Organization Address City/[facility]/ZIP Co de Phone Number [facility] [place] [address] * Non-Car Spotter Final Report (02/23/2022 10:29 AM EDT) Diagnosis Discussion [id number] ? Location: [facility]; [facility]; A The signing pathologist has (i) examined the relevant preparation(s) for the specimen(s) and (ii) rendered or confirmed the diagnosis(es). . ? Non-Car Spotter Final DIAGNOSIS See Discussion Electronically signed by: ?Jonathan EMERSON, Wilberto Verified: ??02/26/2022 13:42 ??Pathologist Performed at: ??-[facility] – [place], [place] Dept. of Pathology, [place], [place] DISCUSSION Lung, right lower lobe (Navigation-guided tissue biopsy and touch imprint cytology): Respiratory epithelial cells and a minute fragment of bronchial/respirat ory epithelial mucosa with focal chronic inflammation and denuded epithelium. No overtly cytologically malignant cells seen; the material might not be hr representative of the target lesion. Clinical and radiologic correlation is required. Cell block was examined. ?? Additional multiple deeper levels were examined. Please see also the concurrent surgical specimen, [id number]. CLINICAL INFORMATION Specimen Source : Lung, right lower lobe (Navigation-guided tissue biopsy and touch imprint cytology, assisted) Pertinent Clinical Data and Significant Therapy: Lung mass/Robotic bronch with EBUS/Thoracentesis /LINA/ Pradip Clinical Impression : Right lower lobe forceps Pertinent Radiologic Findings ??: (not provided) Gross Description: Received in Formalin approximately 50 mL total volume of clear, colorless fluid. Total Preparation: Touch Imprint(s) 1; Tissue Biopsy Block(s) 1. Intraprocedural Immediate Assessment: Evaluation Episode #1 (1 slide): Inadequate for final diagnosis. Deferred. Immediate Assessment by: Wilberto Castillo MD. Note: The above attending cytopathologist personally examined the Immediate Assessment slides and rendered the Immediate Assessment. Such assessments are preliminary; see Diagnosis and Discussion for final interpretation. 02/26/2022 1:42 PM EDT [facility] RIGHT LUNG STRUCTURE / Unknown 02/23/2022 10:29 AM EDT 02/23/2022 10:29 AM EDT Bipin Moseley MD PATHOLOGY/CYTOL OGY ORDERABLES Performing Organization Address [facility] Co de Phone Number [facility] [place] [address] * Cytopathology Non-Gynecological (02/23/2022 10:29 AM EDT) AP Specimen 02/23/2022 10:2 9 AM EDT 02/23/2022 10:29 AM EDT Narrative [facility] - 02/23/2022 10:29 AM EDT Specimen requisition ordered. ??Separate Pathology report to follow Bipin Moseley MD PATHOLOGY/CYTOL OGJoe ORDERABLES Performing Organization Address [facility] [place] [address] * Surgical Pathology Report (02/23/2022 10:27 AM EDT) Final Diagnosis [id number] ? Location: [facility]; [facility]; The signing pathologist has (i) examined the relevant preparation(s) for the specimen(s) and (ii) rendered or confirmed the diagnosis(es). . ?Surgical Pathology DIAGNOSIS A - Lung, right lower lobe, biopsy: - Benign lung parenchyma and bronchial tissue. Electronically signed by: ?Triny Rey MD Verified: ??02/26/2022 11:04 ??Pathologist Performed at: ??-[facility] – [place], [place] Dept. of Pathology, [place], [place] DISCUSSION Histologic features do not appear to reflect sampling of a clinically suspected mass- forming lesion. ADDITIONAL STUDIES Multiple deeper levels were examined. SPECIMEN(S) SUBMITTED A - Lung, right lower lobe, biopsy CLINICAL INFORMATION Lung mass/robotic bronch with EBUS/thoracente sis/LINA/Alex matamoros. SPECIMEN PROCESSING A - Labeled/Fixativ e: Right lower lobe, formalin. Quantity/Size: Five, averaging 0.2 cm. Tissue Description: Soft, anguiano-pink tissues. Sections/Proces sing: Submitted en toto ??in 1 cassette labeled A1. ??jnr 02/26/2022 11:04 AM EDT [facility] LUNG STRUCTURE / Unknown 02/23/2022 10:27 AM EDT 02/23/2022 10:27 AM EDT Bipin Moseley MD PATHOLOGY/CYTOL OGY ORDERABLES Performing Organization Address City/[facility]/[place] [address] * Specimen to Pathology (02/23/2022 10:27 AM EDT) AP Specimen 02/23/2022 10:2 7 AM EDT 02/23/2022 10:27 AM EDT Narrative [facility] - 02/23/2022 10:27 AM EDT Specimen requisition ordered. ??Separate Pathology report to follow Bipin Moseley MD PATHOLOGY/CYTOL OGY ORDERABLES Performing Organization Address [facility]/ZIP Co de Phone Number [facility] [place] [address] * Phosphorus (02/23/2022 7:36 AM EDT) Phosphorus 3.4 2.5 - 4.5 mg/dL [facility] Blood Venous Draw / Unknown 02/23/2022 7:36 AM EDT 02/23/2022 7:40 AM EDT Narrative Resulting Agency Comment Spec In Lab Bipin Moseley MD CHEMISTRY ORDER SAEED Performing Organization Address City/[facility]/ZIP Co de Phone Number [facility] [place] [address] * Differential, Automated (02/23/2022 7:36 AM EDT) Neutrophil % 66.3 % [facility] Neutrophil Absolute 3.62 1.70 - 6.10 x10(3)/[facility] Lymph % 16.9 % [facility] Lymphocytes Abs 0.9 0.9 - 3.2 x10(3)/[facility] Monocyte % 11.9 % [facility] Monocyte Abs 0.6 0.3 - 0.9 x10(3)/[facility] Eos % 3.7 % [facility] Eosinophils Abs 0.2 0.0 - 0.4 x10(3)/[facility] Basophil % 0.6 % [facility] Baso Absolute 0.0 0.0 - 0.1 x10(3)/[facility] Immature Gran % 0.60 % [facility] Comment: Immature granulocytes(IG's)percentage and absolute count will include metamyelocytes, myelocytes, and promyelocytes. Blood smears from CBCs yielding IG's will be scanned manually for concordance. If this scan disagrees with the automated IG or if promyelocytes are noted, a manual differential will be performed. Immature Gran Absolute 0.03 0.00 - 0.04 x10(3)/[facility] Blood 02/23/2022 7:36 AM EDT 02/23/2022 7:38 AM EDT Narrative Resulting Agency Comment Spec In Lab [place] HEMATOLOGY ORDERABL ES [facility] [place] [address] * (ABNORMAL) Hemogram (02/23/2022 7:36 AM EDT) White Blood Cell 5.4 4.0 - 9.5 x10(3)/[facility] Red Blood Cell 3.70(L) 4.58 - 5.54 x10(6)/[facility] Hemoglobin 12.4(L) 13.7 - 16.5 g/dL [facility] Hematocrit 36.9(L) 40.5 - 48.5 % [facility] Mean Cell Volume 99.7(H) 82.9 - 93.1 fL [facility] Mean Cell Hemoglobin 33.5(H) 27.5 - 32.1 pg [facility] Mean Cell Hemoglobin Concentration 33.6 32.0 - 35.7 g/dL [facility] Platelet 247 145 - 357 x10(3)/mc L [facility] RDW Standard Deviation 45.0 36.0 - 45.0 [facility] RDW coefficient of variation 12.4 11.4 - 13.8 % [facility] Mean Platelet Volume 9.0 7.6 - 12.9 [facility] NRBC% auto 0.0 % [facility] NRBC Absolute 0.000 0.000 - 0.000 x10(3)/mc L [facility] Blood 02/23/2022 7:36 AM EDT 02/23/2022 7:38 AM EDT Narrative Resulting Agency Comment Spec In Lab [place] HEMATOLOGY ORDERABL ES [facility] [place] [address] * (ABNORMAL) Comprehensive metabolic panel (non-fasting) (02/23/2022 7:36 AM EDT) Glucose 98 65 - 199 mg/dL [facility] Comment:Diabetes: >=200 mg/d L plus symptoms Blood Urea Nitrogen 22(H) 10 - 20 mg/dL [facility] Creatinine 0.92 0.80 - 1.50 mg/dL [facility] Sodium 142 135 - 145 mmol/L [facility] Potassium 5.1(H) 3.5 - 5.0 mmol/L [facility] Comment: Please note: ??Patients with WBC >100,000 may have falsely elevated Potassium levels. ??For accurate Potassium quantification in these patients send serum separator tube (gold top) for subsequent determinations. ??Contact the Clinical Chemistry Laboratory if there are any questions. Chloride 104 98 - 107 mmol/L [facility] Carbon Dioxide 30 22 - 31 mmol/L [facility] Anion Gap 8 5 - 15 mmol/L [facility] Calcium 9.1 8.5 - 10.5 mg/dL [facility] Protein, Total 7.1 6.1 - 8.0 g/dL [facility] Albumin 4.0 3.2 - 5.2 g/dL [facility] Aspartate Aminotransferase 20 0 - 39 unit/L [facility] Alanine Aminotransferase 17 0 - 55 unit/L [facility] Alkaline Phosphatase 221(H) 40 - 130 unit/L [facility] Bilirubin, Total 0.6 0.2 - 1.3 mg/dL [facility] Est Glomerular Filtration Rate 85 >=60 mL/min/1. 73 m?? [facility] Comment: This patient's estimated GFR [...] and symptoms in addition to eGFR. Blood 02/23/2022 7:36 AM EDT 02/23/2022 7:38 AM EDT Narrative Resulting Agency Comment Spec In Lab Landen Goodman MD CHEMISTRY ORDERABLES [facility] [place] [address] documented in this encounter Visit Diagnoses Diagnosis Lung nodule Solitary pulmonary nodule Pulmonary mass Swelling, mass, or lump in chest documented in this encounter Active and Recently Administered Medications Care Teams Assembly Associate Relationship Specialty Start Date End Date Kadi Lane PA [address] [place] [address] PCP - General Family Medicine 07/28/16 documented as of this encounter
--- OUTSIDE RECORDS SUMMARY | 2024-06-20 01:30 | XMS_ITS | Encounter Summary ---
[place] [address] Care Team Providers Care Insulation Worker Name Role Phone Kadi Lane Primary Care Provider Reason for Referral * Diagnostic Test (Routine) - Closed Specialty Diagnoses / Procedures Referred By Jorge Luis bowers Referred To Contact Radiology Diagnoses Lung nodule Procedures CT Chest wo Contrast (Generic) Antonio Talbot MD [facility] [place] [address] [facility] [place] [address] Referral ID Status Reason Start Date Expiration Date V isits Requested Visits Authorized [id number] Closed Specialty Service Requested 02/16/2022 08/18/2023 1 1 Encounter Details Date Type Department Care Team (Late st Contact Info) Description 02/16/2022 Orders [place] [address] Antonio Talbot MD [facility] [place] [address] Lung nodule Social History Tobacco Use Types Packs/Day Years [...] AM EST Office Visit Hematology/Oncology at [address] [phone] [address] HEMATOLOGY AND ONCOLOGY [place], [place] [id number] 06/20/2024 10:30 AM EST Infusion Hematology Oncology at [address] [phone] 07/04/2024 11:00 AM EST Office Visit Hematology/Oncology at [address] [phone] [address] HEMATOLOGY AND ONCOLOGY [place], [place] [address] 07/04/2024 11:30 AM EST Infusion Hematology Oncology at [address] [phone] documented as of this encounter Results * CT Chest wo Contrast (Generic) (02/23/2022 7:11 AM EDT) Anatomical Region Laterality Modality Chest Computed Tomogra phy 02/23/2022 7:20 AM EDT Impressions 02/23/2022 9:07 AM EDT 1. ??Stable pleural-based mass at the right [...] questions please contact the health critical care technician that requested your imaging first. ? Electronically signed by: Bipin Christensen DO, [facility] ([phone]), at 02/23/2022 9:07 AM Narrative 02/23/2022 9:07 AM EDT EXAMINATION: CT CHEST WO CONTRAST (GENERIC) CLINICAL HISTORY: Lung nodule, > 8mm [place] robotic assisted bronchoscopy protocol CT chest TECHNIQUE: CT of the chest without contrast. Coronal and sagittal reformatted images were generated. COMPARISON: PET/CT 01/30/2022 FINDINGS: Limitations: Lack of intravenous contrast limits evaluation of the visceral organs, mediastinum, and vascular structures. Utility Bagger Images: Noncontributory. Pulmonary parenchyma: 4.2 cm pleural-based mass at the right lung base as seen on previous PET/CT. Small calcified granuloma in the right upper lobe. Airways: The large airways are patent. Pleura: Moderate right pleural effusion with a peripheral rind. Diffuse calcified pleural plaques bilaterally. ??No pleural effusion on the left. ??No pneumothorax bilaterally. Lymph nodes, mediastinum and francy: No mass or lymphadenopathy. Known FDG avid hilar adenopathy not well visualized on noncontrast CT. Small hiatal hernia. Heart, pericardium, and great vessels: Normal cardiac size. No pericardial effusion. No thoracic aortic aneurysm. Coronary artery and aortic calcifications.. Lower neck: Unremarkable thyroid gland. No visible cervical lymphadenopathy. Upper abdomen: No significant findings. Body wall soft tissues: Normal. Skeletal structures: No suspicious lesions. Procedure Note Bipin Christensen DO - 02/23/2022 EXAMINATION: CT CHEST WO CONTRAST (GENERIC) CLINICAL HISTORY: Lung nodule, > 8mm [place] robotic assisted bronchoscopy protocol CT chest TECHNIQUE: CT of the chest without contrast. Coronal and sagittalreformatted images were generated. COMPARISON: PET/CT 01/30/2022 FINDINGS: Limitations: Lack of intravenous contrast limits evaluation of thevisceral organs, mediastinum, and vascular structures. Utility Bagger Images: Noncontributory. Pulmonary parenchyma: 4.2 cm pleural-based mass at the right lung base asseen on previous PET/CT. Small calcified granuloma in the right upper lobe. Airways: The large airways are patent. Pleura: Moderate right pleural effusion with a peripheral rind. Diffuse calcified pleural plaques bilaterally. No pleural effusion on the left.No pneumothorax bilaterally. Lymph nodes, mediastinum and francy: No mass or lymphadenopathy. Known FDGavid hilar adenopathy not well visualized on noncontrast CT. Small hiatalhernia. Heart, pericardium, and great vessels: Normal cardiac size. Nopericardial effusion. No thoracic aortic aneurysm. Coronary artery and aortic calcifications.. Lower neck: Unremarkable thyroid gland. No visible cervicallymphadenopathy. Upper abdomen: No significant findings. Body wall soft tissues: Normal. Skeletal structures: No suspicious lesions. IMPRESSION 1. Stable pleural-based mass at the right lung base. 2. Stable moderate right pleural effusion with thick peripheral rind. 3. Stable calcified bilateral pleural plaques, consistent with asbestosrelated pleural disease. I have personally reviewed the image(s) and the resident's interpretationand agree with the findings, Bipin Christensen DO at 02/23/2022 9:07 AM Thank you for letting us participate in the care of this patient. If youare a health care provider and have any questions regarding this report,please contact the number below. For patients who have questions please contactthe health critical care technician that requested your imaging first. Electronically signed by: Bipin Christensen DO, [facility]([phone]), at 02/23/2022 9:07 AM Antonio Talbot MD [facility] CT ORDERABLES documented in this encounter Visit Diagnoses Diagnosis Lung nodule Solitary pulmonary nodule Lung nodule Solitary pulmonary nodule documented in this encounter Care Teams Insulation Worker Relationship Specialty Start Date End Date Kadi Lane PA [address] [place] [address] PCP - General Family Medicine 07/28/16 documented as of this encounter
--- OUTSIDE RECORDS SUMMARY | 2024-06-20 01:30 | XMS_ITS | Encounter Summary ---
[place] [address] Care Team Providers Care Blood Bank Technologist Name Role Phone Kadi Lane Primary Care Provider Reason for Visit * Auth/Cert Specialty Diagnoses / Procedures Referred By Contac t Referred To Contact Diagnoses Hypopharyngeal mass Post Op Tracial Obstruction Charlie Marte MD [facility] [place] [address] [facility] Referral ID Status Reason Start Date Expiration Date Visits Re quested Visits Authorized [id number] 1 1 Encounter Details Date Type Department Care Team (Late st Contact Info) Description 02/23/2022 9:23 AM EDT Anesthesia Event [place] [address] Diana Morales MD [facility] [place] [address] Zach Souza CRNA [facility] [place] [address] Anesthesia Record Procedure Summary Procedure Name Responsible Anesthesiologist Anesthesia Start Time Anesthesia Stop Time BRONCHOSCOPY,RIGID OR FLEX,WITH IMAGE GUIDANCE ( ROBOT / [place] ) (VU 2) Diana Morales MD 02/23/22 0923 02/23/22 1135 Events Date Time Event Comment 02/23/2022 0900 0923 AN Verify 0923 Start 0923 An Start Data 0930 An Induction 0933 An Intubation 0936 Anesthesia Ready 1121 Extubation/LMA Out 1125 an stop data 1135 Recovery or ICU Handoff [place] ent care was transferred to the destination unit staff after review of the patient's medical history, current anesthetic/surgical status and plan, according to the Provider Handoff Checklist. 1135 Stop Meds Name Total Propofol 100 mg Propofol INF 573.81 mg Rocuronium 60 mg PHENYLephrine 80 mcg ePHEDrine 5 mg Ondansetron 4 mg Glycopyrrolate 0.4 mg REMIfentanil INF 0.55 mg PHENYLephrine INF 670 mcg Sugammadex 200 mg Lactated Ringers 500 mL * Agents Name O2 Air N2O * Blood No blood administrations on file. Lines, Drains, and Airways Type Details Placement Removal (RETIRED) Peripheral IV Line - Single Lumen 02/23/22; 08; median cubital vein (antecubital fossa), left; kcid-epd-hsfphx catheter system; Anatomical Landmarks; 20 gauge; Geeta Alfredo RN; distraction, intradermal injection, tolerated well; 02/23/22; 1244 02/23/22 0808 by Sanya Alfredo, SOREN 02/23/22 1244 by Kiah Reynoso, RN ETT Mask Ventilation: Ea sy (1); ETT Type: Cuffed, Oral; ETT Size: 8.5 mm; Mac Blade: 3; Notes: Asleep, Pre-O2; Attempts: 1; Laryngoscopy Grade: 2; ETT Placement Verified By: Auscultation, Visual, Capnometry; Secured at Teeth: 19 cm; Inserted by: Micha Souza; Removal Date: 02/23/22; Removal Time: 11202/23/22 0934 by aZch Souza CRNA 02/23/22 1121 by Zach Souza CRNA documented in this encounter Social History [...] OR Notes * Anesthesia Postprocedure Evaluation - Diana Morales MD - 02/23/2022 12:03 PM EDT Department of Anesthesiology Post-procedure Note Patient: Marco Antonio Xiong Procedure Summary Date: 02/23/22 Room / Location: [facility] OR [address] [place] [address] MAIN OR Anesthesia Start: 922 Anesthesia Stop: 1134 Procedures: BRONCHOSCOPY,RIGID OR FLEX,WITH IMAGE GUIDANCE ( ROBOT / [place] ) (N/A ) THORACENTESIS, NEEDLE OR CATHETER; WITH IMAGE GUIDANCE (WRVU 2.27) (N/A ) BRONCH, W EBUS DURING INTERVENTION FOR PERIPH LESION (WRVU 1.4) (N/A ) BRONCH, W ENDOBRONCHIAL ULTRASOUND (EBUS) GUIDED SAMPLING, 1/2 NODES (WRVU 4.71) (N/A ) BRONCHOSCOPY (FLEXIBLE OR RIGID) W\TRANSBRONC BX (WRVU 3.8) (N/A ) BRONCHOSCOPY W/TRANSBRONCHIAL NEEDLE ASPIRATION BX,FLEXIBLE (WRVU 4) (N/A ) BRONCHOSCOPY, RIGID OR FLEXIBLE, WITH BRONCHIAL ALVEOLAR LAVAGE (WRVU 2.88) (N/A Chest) BRONCHOSCOPY, W/THERAPEUTIC ASPIRATION OF TRACHEOBRONCHIAL TREE (WRVU 3.16) (N/A ) Diagnosis: Lung mass (Lung mass/ Robotic bronch with EBUS/Thoracentesis/ GA/ Pradip) Surgeons: Bipin Moseley MD Responsible Provider: Diana Morales MD Anesthesia Type: general ASA Status: 4 All Anesthesia Providers: Anesthesiologist: Diana Morales MD BROADCAST MAINTENANCE ENGINEER: Zach Souza CRNA Vitals Value Taken Time BP 162/63 02/23/22 1200 Temp 36.1 ??C (97 ??F) 02/23/22 1130 Pulse 58 02/23/22 1202 Resp 21 02/23/22 1202 SpO2 98 % 02/23/22 1202 Pain Level 0 02/23/22 1130 Vitals shown include unvalidated device data. Patient Location: PACU/[facility] Level of Consciousness: Conscious but Sleepy Pain Management: Satisfactory Analgesia PONV: None Cardiovascular Status: At Baseline Respiratory Status: At Baseline Postoperative Fluid Status: Intravascular EUvolemia Possible Anesthetic Complications: NONE apparent at time of evaluation Final Primary Anesthesia Type: General (The anesthetic type performed was the same as planned.) Comments: * Anesthesia Preprocedure Evaluation - Diana Morales MD - 02/23/2022 8:57 AM EDT Pre-Anesthesia Evaluation for: Marco Antonio Xiong a 76 y.o. male. Procedure(s): BRONCHOSCOPY,RIGID OR FLEX,WITH IMAGE GUIDANCE ( ROBOT / [place] ) BRONCH, W ENDOBRONCHIAL ULTRASOUND (EBUS) GUIDED SAMPLING, 3+ NODES (WRVU 5.21) THORACENTESIS, NEEDLE OR CATHETER; WITH IMAGE GUIDANCE (WRVU 2.27) There are no problems to display for this patient. History reviewed. No pertinent past medical history. History reviewed. No pertinent surgical history. Social History Tobacco Use ??? Smoking status: Former Smoker Types: Cigarettes Quit date: 1986 Years since quittin.7 ??? 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 NPO>8h. Well controlled GERD. Has family history (mom and son) of MH, he has never had an episode. Plan GA, nontriggering anesthetic, temp monitoring. Region - Intrathoracic Non-Cardiac Informed Consent: Anesthetic plan and risks discussed with patient and spouse. Plan discussed with BROADCAST MAINTENANCE ENGINEER. Anesthesia Screening documented in this encounter Plan of Treatment Upcoming Encounters Date Type Department Care Team (Late st Contact Info) Description 06/20/2024 10:00 AM EST Office Visit Hematology/Oncology at [address] [phone] [address] [place] [address] 06/20/2024 10:30 AM EST Infusion Hematology Oncology at [address] [phone] 07/04/2024 11:00 AM EST Office Visit Hematology/Oncology at [address] [phone] [address] [place] [address] 07/04/2024 11:30 AM EST Infusion Hematology Oncology at [address] [phone] documented as of this encounter Visit Diagnoses Not on filedocumented in this encounter Administered Medications Inactive Administered Medications - up to 3 most recent administrations Medication Order MAR Action Action Date Dose Rate Site ePHEDrine sulfate (5 mg/mL) multi-dose injection Intravenous, PRN, Starting on Wed02/23/22 at 0946, Until Wed02/23/22 at 1135, Anesthesia Intra-op, Routine Given 02/23/2022 9:46 AM EDT 5 mg glycopyrrolate (Robinul) (0.2 mg/mL) multi-dose injection Intravenous, PRN, Starting on Wed02/23/22 at 1002, Until Wed02/23/22 at 1135, Anesthesia Intra-op, Routine Given 02/23/2022 10:08 AM EDT 0.2 mg Given 02/23/2022 10:02 AM EDT 0.2 mg lactated ringers infusion Intravenous, CONTINUOUS PRN, Starting on Wed02/23/22 at 0928, Until Wed02/23/22 at 1135, Anesthesia Intra-op New Bag 02/23/2022 9:28 AM EDT ondansetron (pf) (Zofran) (2 mg/mL) injection Intravenous, PRN, Starting on Wed02/23/22 at 1058, Until Wed02/23/22 at 1135, Anesthesia Intra-op, Routine Given 02/23/2022 10:58 AM EDT 4 mg PHENYLephrine (Virgilio-Synephrine) (80 mcg/mL) in sodium chloride 0.9% 250 mL infusion Intravenous, CONTINUOUS PRN, Starting on Wed02/23/22 at 0959, Until Wed02/23/22 at 1135, Anesthesia Intra-op, Routine Restarted 02/23/2022 10:14 AM EDT 10 mcg/min 7.5 mL/hr New Bag 02/23/2022 9:59 AM EDT 20 mcg/min 15 mL/hr PHENYLephrine in NS (PF) (VIRGILIO-SYNEPHRINE) 0.8 mg/10 mL (80 mcg/mL) multi-dose injection Syrg Intravenous, PRN, Starting on Wed02/23/22 at 0947, Until Wed02/23/22 at 1135, Anesthesia Intra-op, Routine Given 02/23/2022 9:47 AM EDT 80 mcg propofoL (Diprivan) (10 mg/mL) infusion Intravenous, CONTINUOUS PRN, Starting on Wed02/23/22 at 0929, Until Wed02/23/22 at 1135, Anesthesia Intra-op, Routine New Bag 02/23/2022 9:29 AM EDT 100 mcg/kg/min 37.02 mL/hr propofoL (Diprivan) 10 mg/mL bolus injection (Anesthesia) Intravenous, PRN, Starting on Wed02/23/22 at 0930, Until Wed02/23/22 at 1135, Anesthesia Intra-op Given 02/23/2022 9:30 AM EDT 100 mg remifentaniL (Ultiva) (0.02 mg/mL) infusion (Anesthesia) Intravenous, CONTINUOUS PRN, Starting on Wed02/23/22 at 0928, Until Wed02/23/22 at 1135, Anesthesia Intra-op Rate/Dose Change 02/23/2022 9:55 AM EDT 0.1 mcg/kg/min 18.51 mL/hr Rate/Dose Change 02/23/2022 9:48 AM EDT 0.15 mcg/kg/min 27 .765 mL/hr New Bag 02/23/2022 9:28 AM EDT 0.1 mcg/kg/min 18.51 mL/ hr rocuronium (Zemuron) (10 mg/mL) multi-dose injection Intravenous, PRN, Starting on Wed02/23/22 at 0931, Until Wed02/23/22 at 1135, Anesthesia Intra-op, Routine Given 02/23/2022 10:24 AM EDT 10 mg Given 02/23/2022 9:31 AM EDT 50 mg sugammadex (Bridion) 100 mg/mL injection Intravenous, PRN, Starting on Wed02/23/22 at 1110, Until Wed02/23/22 at 1135, Anesthesia Intra-op, Routine Given 02/23/2022 11:10 AM EDT 200 mg documented in this encounter Care Teams Blood Bank Technologist Relationship Specialty Start Date End Date Kadi Lane PA [address] [address] PCP - General Family Medicine 07/28/16 documented as of this encounter
--- OUTSIDE RECORDS SUMMARY | 2024-06-20 01:30 | XMS_ITS | Encounter Summary ---
[place] [address] Care Team Providers Care Defensive Secondary Coach Name Role Phone Kadi Lane Primary Care Provider [phone] Encounter Details Date Type Department Care Team (Late st Contact Info) Description 02/16/2022 Telephone [place] [phone] Suma Tran Social History Tobacco Use Types [...] AM EST Office Visit Hematology/Oncology at [address] [phone] Lia Barber APRN [address] [place] [address] DR HEMATOLOGY AND ONCOLOGY [place], [place] [address] 06/20/2024 10:30 AM EST Infusion Hematology Oncology at [address] [phone] 07/04/2024 11:00 AM EST Office Visit Hematology/Oncology at [address] [phone] Lia Barber APRN [address] [place] [address] DR HEMATOLOGY AND ONCOLOGY [place], [place] [phone] 07/04/2024 11:30 AM EST Infusion Hematology Oncology at [address] [phone] documented as of this encounter Visit Diagnoses Not on filedocumented in this encounter Care Teams Defensive Secondary Coach Relationship Specialty Start Date End Date Kadi Lane PA [address] [place] [address] PCP - General Family Medicine 07/28/16 documented as of this encounter
--- OUTSIDE RECORDS SUMMARY | 2024-06-20 01:30 | XMS_ITS | Encounter Summary ---
[place] [address] Care Team Providers Care State Appellate Clerk Name Role Phone Kadi Lane Primary Care Provider [phone] Reason for Referral * Diagnostic Test (Routine) - Closed Specialty Diagnoses / Procedures Referred By Jorge Luis bowers Referred To Contact Radiology Diagnoses Lung nodule Procedures CT Chest wo Contrast (Generic) Antonio Talbot MD [facility] [place] [address] [facility] [place] [address] Referral ID Status Reason Start Date Expiration Date V isits Requested Visits Authorized [id number] Closed Specialty Service Requested 02/16/2022 08/18/2023 1 1 Reason for Visit * Auth/Cert Specialty Diagnoses / Procedures Referred By Jorge Luis bowers Referred To Contact Diagnoses Hypopharyngeal mass Post Op Tracial Obstruction Charlie Marte MD [facility] [place] [address] [facility] Referral ID Status Reason Start Date Expiration Date Visits Re quested Visits Authorized [id number] 1 1 Encounter Details Date Type Department Care Team (Latest Contact Info) Description 02/23/2022 6:57 AM EDT - 02/23/2022 7:16 AM EDT Hospital Encounter CT Scan at [facility] [place] [address] Antonio Talbot MD [facility] [place] [address] Lung nodule Discharge Disposition: Home Social History Tobacco Use [...] AM EST Office Visit Hematology/Oncology at [address] [phone] Lia Barber APRN [address] [place] [address] [place] [address] 06/20/2024 10:30 AM EST Infusion Hematology Oncology at [address] [phone] 07/04/2024 11:00 AM EST Office Visit Hematology/Oncology at [address] [phone] Lia Barber APRN [address] [place] [address] DR HEMATOLOGY AND ONCOLOGY [place], [place] [phone] 07/04/2024 11:30 AM EST Infusion Hematology Oncology at [address] [place] [phone] documented as of this encounter Procedures Procedure Name Priority Date/Time Associated Diagnosis Comments CT CHEST WO CONTRAST (GENERIC) Routine 02/23/2022 7:11 AM EDT Lung nodule documented in this encounter Results * CT Chest wo [...] have questions please contact the health healthcare specialist that requested your imaging first. ? Narrative 02/23/2022 9:07 AM EDT EXAMINATION: CT CHEST WO CONTRAST (GENERIC) CLINICAL HISTORY: Lung nodule, > 8mm [place] robotic assisted bronchoscopy protocol CT chest TECHNIQUE: CT of the chest without contrast. Coronal and sagittal reformatted images were generated. COMPARISON: PET/CT 01/30/2022 FINDINGS: Limitations: Lack of intravenous contrast limits evaluation of the visceral organs, mediastinum, and vascular structures. Product Assurance Engineer Images: Noncontributory. Pulmonary parenchyma: 4.2 cm pleural-based [...] structures: No suspicious lesions. Procedure Note Bipin Christensen, DO - 02/23/2022 EXAMINATION: CT CHEST WO CONTRAST (GENERIC) CLINICAL HISTORY: Lung nodule, > 8mm [place] robotic assisted bronchoscopy protocol CT chest TECHNIQUE: CT of the chest without contrast. Coronal and sagittalreformatted images were generated. COMPARISON: PET/CT 01/30/2022 FINDINGS: Limitations: Lack of intravenous contrast limits evaluation of thevisceral organs, mediastinum, and vascular structures. Product Assurance Engineer Images: Noncontributory. Pulmonary parenchyma: 4.2 cm pleural-based [...] patients who have questions please contactthe health healthcare specialist that requested your imaging first. Antonio Talbot MD IMG CT ORDERABLES documented in this encounter Visit Diagnoses Diagnosis Lung nodule Solitary pulmonary nodule documented in this encounter Care Teams State Appellate Clerk Relationship Specialty Start Date End Date Kadi Lane PA [address] [place] [address] PCP - General Family Medicine 07/28/16 documented as of this encounter
--- OUTSIDE RECORDS SUMMARY | 2024-06-20 01:30 | XMS_ITS | Encounter Summary ---
[place] [address] Care Team Providers Care Seasonal Delivery Driver Name Role Phone Unavailable Primary Care Provider Unavailabl e Encounter Details Date Type Department Care Team (Latest Contact Info) Description 07/27/2016 2:16 PM EDT - 07/27/2016 11:59 PM EDT [place] [phone] Discharge Disposition: Home Social History Tobacco Use [...] AM EST Office Visit Hematology/Oncology at [address] [phone] Lia Barber APRN [address] [place] [address] HEMATOLOGY AND ONCOLOGY [place], [place] [id number] 06/20/2024 10:30 AM EST Infusion Hematology Oncology at [address] [phone] 07/04/2024 11:00 AM EST Office Visit Hematology/Oncology at [address] [phone] Lia Barber APRN [address] [place] [address] DR HEMATOLOGY AND ONCOLOGY [place], [place] [phone] 07/04/2024 11:30 AM EST Infusion Hematology Oncology at [address] [phone] documented as of this encounter Procedures Procedure Name Priority Date/Time Associated Diagnosis Comments NON-SEWAGE TREATMENT PLANT OPERATOR FINAL REPORT Routine 07/27/2016 4:48 PM EDT documented in this encounter Results * Non-Activity Aid Final Report (07/27/2016 4:48 PM EDT) Diagnosis Discussion [id number] ?Location: [facility] The signing pathologist has (i) examined the relevant preparation(s) for the specimen(s) and (ii) rendered or confirmed the diagnosis(es). . ? Non-Activity Aid Final DIAGNOSIS Negative for Malignancy Electronically signed by: ??Wilberto Castillo MD Verified: ??07/30/2016 ?Pathologist DISCUSSION Right pleural effusion: Predominantly blood with a few admixed white blood cells. Cell block shows similar features. ?? Additional level examined. Clinical and radiologic correlation is recommended. CLINICAL INFORMATION Specimen Source : Right pleural effusion Pertinent Clinical Data and Significant Therapy: (not provided) Clinical Impression : (not provided) Pertinent Radiologic Findings ??: (not provided) Gross Description: Received ??fresh, approximately 70 mL total volume of ?? bloody fluid, with clots. Total Preparation: Liquid Based Prep 1; Cell Block 1. Referring Identifier: ??[id number] 07/30/2016 3:44 PM EDT [facility] Pleural Fluid 07/27/2016 4:4 8 PM EDT 07/27/2016 4:48 PM EDT Narrative Resulting Agency Comment Spec In Lab / AVH She Butt MD PATHOLOGY/CYTOLOGY O RDERABLES [facility] [place] [address] documented in this encounter Visit Diagnoses Not on filedocumented in this encounter
--- OUTSIDE RECORDS SUMMARY | 2024-06-20 01:30 | XMS_ITS | Encounter Summary ---
[place] [address] Care Team Providers Care Rehab Rn Name Role Phone Kadi Lane Primary Care Provider Reason for Referral * Diagnostic Test (Routine) - Closed Specialty Diagnoses / Procedures Referred By Contac t Referred To Contact Radiology Diagnoses Bloody pleural effusion Procedures PET CT Lacey skull base to mid tHigh She Butt MD [address] [place] [address] [place] [address] Referral ID Status Reason Start Date Expiration Date V isits Requested Visits Authorized [id number] Closed Specialty Service Requested 08/07/2016 08/07/2017 1 1 Reason for Visit * Diagnostic Test (Routine) - Closed Specialty Diagnoses / Procedures Referred By Contac t Referred To Contact Radiology Diagnoses Bloody pleural effusion Procedures PET CT Lacey skull base to mid tHigh She Butt MD [address] [place] [address] [place] [address] Referral ID Status Reason Start Date Expiration Date V isits Requested Visits Authorized [id number] Closed Specialty Service Requested 08/07/2016 08/07/2017 1 1 Encounter Details Date Type Department Care Team (Latest Contact Info) Description 08/21/2016 2:00 PM EDT - 08/21/2016 11:59 PM EDT Hospital Encounter [place] [address] She Butt MD [address] [place] [address] Bloody pleural effusion Discharge Disposition: Home Social History Tobacco [...] AM EST Office Visit Hematology/Oncology at [address] [phone] [address] HEMATOLOGY AND ONCOLOGY [place], [place] [address] 06/20/2024 10:30 AM EST Infusion Hematology Oncology at [address] [phone] 07/04/2024 11:00 AM EST Office Visit Hematology/Oncology at [address] [phone] [address] [place] [address] 07/04/2024 11:30 AM EST Infusion Hematology Oncology at [address] [phone] documented as of this encounter Procedures Procedure Name Priority Date/Time Associated Diagnosis Comments NM LAECY PET CT SKULL BASE TO MID-THIGH Routine 08/21/2016 2:30 PM EDT Bloody pleural effusion documented in this encounter Results * PET CT Lacey skull base to mid tHigh (08/21/2016 2:30 PM EDT) Anatomical Region Laterality Modality Positron Emissio n Tomography (PET) Impressions 08/21/2016 4:14 PM EDT 1. ??No evidence of FDG avid malignancy such as mesothelioma. 2. ??Mildly FDG avid bilateral pleural thickening is favored to represent a chronic inflammatory process. An indolent-type neoplastic process is not excluded. 3. ??CT visualized calcified bilateral pleural plaques are consistent with asbestos exposure. 4. ??Unchanged moderate sized right pleural effusion and associated atelectasis. Thank you for referring this patient to [facility]. I have personally reviewed the image(s) and the residents interpretation and agree with the findings, Neel Foster at 08/21/2016 4:14 PM Narrative 08/21/2016 4:14 PM EDT EXAMINATION: PET CT LACEY SKULL BASE TO MID THIGH CLINICAL HISTORY: Heavy asbestos exposure and bloody pleural effusion on R., Need PET to rule out malignancy and mesothelioma. TECHNIQUE: Following IV injection of 33-hbgcyz-2-deoxyglucose (FDG) a standard uptake of approximately 60 minutes, a noncontrast CT scan followed by a PET scan were acquired from the base of the skull to mid thighs. The noncontrast CT was used for anatomic localization and photon attenuation correction of the PET scan. Blood glucose level: 83 (mg/dL) FDG dose: 12 mCi COMPARISON: CT chest 04/29/2016. FINDINGS: HEAD/NECK: Normal activity in all soft tissue regions of the neck and visualized lower head. No CT visualized adenopathy. CHEST: Mildly FDG avid nodular bilateral pleural thickening. Otherwise, normal activity in all other soft tissue regions of the chest. Bilateral calcified pleural plaques are most consistent with asbestos exposure. Unchanged moderate sized right pleural effusion. Bibasilar atelectasis. No CT visualized pulmonary nodules or lymphadenopathy. Coronary artery, cardiac valve and aortic calcifications are present. Small hiatal hernia. ABDOMEN/PELVIS: Normal activity in all soft tissue regions. CT visualized lymphadenopathy. Aortic calcifications are present. SKELETON/EXTREMITIES: FDG avid benign-appearing left mid clavicular fracture with associated callus formation. Bilateral increased FDG activity around the shoulder joint is most consistent with degenerative changes. Small FDG avid focus in the right deltoid muscle is most consistent with site of prior injection question due to recent vaccine. Normal activity in all other regions of the axial and ??visualized appendicular skeleton. ? Procedure Note Neel Foster MD - 08/21/2016 EXAMINATION: PET CT LACEY SKULL BASE TO MID THIGH CLINICAL HISTORY: Heavy asbestos exposure and bloody pleural effusion onR., Need PET to rule out malignancy and mesothelioma. TECHNIQUE: Following IV injection of 29-nkdnkz-6-deoxyglucose (FDG) astandard uptake of approximately 60 minutes, a noncontrast CT scan followed by aPET scan were acquired from the base of the skull to mid thighs. The noncontrast CTwas used for anatomic localization and photon attenuation correction of thePET scan. Blood glucose level: 83 (mg/dL) FDG dose: 12 mCi COMPARISON: CT chest 04/29/2016. FINDINGS: HEAD/NECK: Normal activity in all soft tissue regions of the neck and visualizedlower head. No CT visualized adenopathy. CHEST: Mildly FDG avid nodular bilateral pleural thickening. Otherwise, normalactivity in all other soft tissue regions of the chest. Bilateral calcifiedpleural plaques are most consistent with asbestos exposure. Unchanged moderatesized right pleural effusion. Bibasilar atelectasis. No CT visualizedpulmonary nodules or lymphadenopathy. Coronary artery, cardiac valve and aortic calcifications are present. Small hiatal hernia. ABDOMEN/PELVIS: Normal activity in all soft tissue regions. CT visualizedlymphadenopathy. Aortic calcifications are present. SKELETON/EXTREMITIES: FDG avid benign-appearing left mid clavicular fracture with associatedcallus formation. Bilateral increased FDG activity around the shoulder joint ismost consistent with degenerative changes. Small FDG avid focus in the rightdeltoid muscle is most consistent with site of prior injection question due torecent vaccine. Normal activity in all other regions of the axial andvisualized appendicular skeleton. IMPRESSION 1. No evidence of FDG avid malignancy such as mesothelioma. 2. Mildly FDG avid bilateral pleural thickening is favored to representa chronic inflammatory process. An indolent-type neoplastic process is not excluded. 3. CT visualized calcified bilateral pleural plaques are consistentwith asbestos exposure. 4. Unchanged moderate sized right pleural effusion and associatedatelectasis. Thank you for referring this patient to [facility]. I have personally reviewed the image(s) and the residents interpretationand agree with the findings, Neel Foster at 08/21/2016 4:14 PM She Butt MD IMG PET ORDERABLES documented in this encounter Visit Diagnoses Diagnosis Bloody pleural effusion Other specified forms of effusion, except tuberculous documented in this encounter Administered Medications Inactive Administered Medications - up to 3 most recent administrations Medication Order MAR Action Action Date Dose Rate Site fludeoxyglucose (F-18) FDG injection 12 mCi 12 mCi, Intravenous, ONCE PRN, 1 dose, Starting on Wed08/21/16 at 1502, Until Wed08/21/16 at 1258, Per Protocol, Routine Given 08/21/2016 12:58 PM EDT 12 mCi documented in this encounter Care Teams Rehab Rn Relationship Specialty Start Date End Date Kadi Lane PA [address] [place] [address] PCP - General Family Medicine 07/28/16 documented as of this encounter
--- OUTSIDE RECORDS SUMMARY | 2024-06-20 01:30 | XMS_ITS | Encounter Summary ---
[place] [address] Care Team Providers Care Baffle Installer Name Role Phone Kadi Lane Primary Care Provider [phone] Encounter Details Date Type Department Care Team (Late st Contact Info) Description 02/11/2022 Telephone [place] [address] Ari Urena Social History Tobacco Use Types Packs/Day Years Used Date Smoking Tobacco: Never Assessed Sex and Gender Information Value Date Recorded Sex Assigned at Male 10/05/2023 6:23 PM EDT Gender Identity Male 10/05/2023 6:23 PM EDT Sexual Orientation Straight 10/05/2023 6: 23 PM EDT documented as of this encounter Miscellaneous Notes * Telephone Encounter - Ari Urena - 02/11/2022 10:53 AM EDT Call to [facility] to inquire about recent imaging. They have a CT CAP from December 2021 that they will push over. Patient may have had additional imaging done at [facility]. Faxed request for any recent imaging to [phone]. documented in this encounter Plan of Treatment Upcoming Encounters Date Type Department Care Team (Late st Contact Info) Description 06/20/2024 10:00 AM EST Office Visit Hematology/Oncology at [address] [phone] HEMATOLOGY AND ONCOLOGY [place], [place] [phone] 06/20/2024 10:30 AM EST Infusion Hematology Oncology at [address] [phone] 07/04/2024 11:00 AM EST Office Visit Hematology/Oncology at [address] [phone] HEMATOLOGY AND ONCOLOGY [place], [place] [phone] 07/04/2024 11:30 AM EST Infusion Hematology Oncology at [address] [phone] documented as of this encounter Visit Diagnoses Not on filedocumented in this encounter Care Teams Baffle Installer Relationship Specialty Start Date End Date Kadi Lane PA [address] [place] [address] PCP - General Family Medicine 07/28/16 documented as of this encounter
--- OUTSIDE RECORDS SUMMARY | 2024-06-20 01:30 | XMS_ITS | Encounter Summary ---
Author Organization [facility] [place] [address] Care Team Providers Care Smoking Tobacco Packing Machine Hand Name Role Phone Kadi Lane Primary Care Provider [phone] Encounter Details Date Type Department Care Team (Late st Contact Info) Description 01/01/2022 Ancillary Procedure Radiology Library at [facility] [place] [phone] Mildred Osorio MD [facility] [place] [address] Social History Tobacco Use Types Packs/Day Years [...] AM EST Office Visit Hematology/Oncology at [address] [phone] Lia Barber APRN [address] [place] [address] DR HEMATOLOGY AND ONCOLOGY [place], [place] [address] 06/20/2024 10:30 AM EST Infusion Hematology Oncology at [address] [phone] 07/04/2024 11:00 AM EST Office Visit Hematology/Oncology at [address] [phone] Lia Barber APRN [address] [place] [address] DR HEMATOLOGY AND ONCOLOGY [place], [place] [phone] 07/04/2024 11:30 AM EST Infusion Hematology Oncology at [address] [phone] documented as of this encounter Procedures Procedure Name Priority Date/Time Associated Diagnosis Comments FILM LIBRARY STORAGE ONLY CT CHEST ABDOMEN PELVIS Routine 01/01/2022 12:00 AM EDT documented in this encounter Results * Film Library- Storage Only CT Chest Abdomen Pelvis (01/01/2022 12:00 AM EDT) Narrative RAD - 02/25/2022 11:00 AM EDT This exam is auto-finalizing. It's purpose is for storage only. Mildred Osorio MD IMG FILM LIBRARY ORD ERABLES Performing Organization Address City/State/[facility] Co de Phone Number [place], [place] documented in this encounter Visit Diagnoses Not on filedocumented in this encounter Care Teams Smoking Tobacco Packing Machine Hand Relationship Specialty Start Date End Date Kadi Lane PA [facility] [place] [address] PCP - General Family Medicine 07/28/16 documented as of this encounter
--- OUTSIDE RECORDS SUMMARY | 2024-06-20 01:30 | XMS_ITS | Encounter Summary ---
[place] [address] Care Team Providers Care Cook Ice Cream Name Role Phone Kadi Lane Primary Care Provider [phone] Reason for Referral * Consultation (Urgent) - Closed Specialty Diagnoses / Procedures Referred By Contmarlys t Referred To Contact Thoracic Surgery Diagnoses Solitary pulmonary nodule Solitary pulmonary nodule Kadi Lane PA [address] [place] [address] [facility] [address] [place] [phone] Referral ID Status Reason Start Date Expiration Date V isits Requested Visits Authorized [id number] Closed Consult, Test & Treat PCP Updated and/or Approved 02/04/2022 02/04/2023 6 6 Encounter Details Date Type Department Care Team (Latest Contact Info) Description 02/04/2022 Transcribe Orders eDH Incoming Referrals [phone] PA [address] [place] [address] Solitary pulmonary nodule Social History Tobacco Use Types Packs/Day [...] AM EST Office Visit Hematology/Oncology at [address] [phone] HEMATOLOGY [place] [address] 06/20/2024 10:30 AM EST Infusion Hematology Oncology at [address] [phone] 07/04/2024 11:00 AM EST Office Visit Hematology/Oncology at [address] [phone] [address] HEMATOLOGY [place] [address] 07/04/2024 11:30 AM EST Infusion Hematology Oncology at [address] [phone] Scheduled Referrals Name Type Priority Associated Diagnoses Orde r Schedule Amb Ref To Thoracic Surgery Outpatient Referral STAT Solitary pulmonary nodule Ordered: 02/04/2022 documented as of this encounter Visit Diagnoses Diagnosis Solitary pulmonary nodule documented in this encounter Care Teams Cook Ice Cream Relationship Specialty Start Date End Date Kadi Lane [place] [address] PCP - General Family Medicine 07/28/16 documented as of this encounter
--- OUTSIDE RECORDS SUMMARY | 2024-06-20 01:30 | XMS_ITS | Encounter Summary ---
[place] [address] Care Team Providers Care Crystal Slicer Name Role Phone Kadi Lane Primary Care Provider Encounter Details Date Type Department Care Team (Latest Contact Info) Description 02/13/2022 1:15 PM EDT - 02/13/2022 11:59 PM EDT Hospital En[place] [phone] Lung nodule; Pulmonary mass Discharge Disposition: Home [...] Refills Start Date End Date omeprazole (PriLOSEC) 20 mg Capsule, Delayed Release(E.C.) Take 20 mg by mouth every morning. 02/09/2022 09/01/2023 documented as of this encounter Plan of Treatment Upcoming Encounters Date Type Department Care Team (Late st Contact Info) Description 06/20/2024 10:00 AM EST Office Visit Hematology/Oncology at [address] [phone] HEMATOLOGY AND ONCOLOGY [place], [place] [phone] 06/20/2024 10:30 AM EST Infusion Hematology Oncology at [address] [phone] 07/04/2024 11:00 AM EST Office Visit Hematology/Oncology at [address] [phone] [address] HEMATOLOGY AND ONCOLOGY [place], [place] [phone] 07/04/2024 11:30 AM EST Infusion Hematology Oncology at [address] [phone] documented as of this encounter Procedures Procedure Name Priority Date/Time Associated Diagnosis Comments COMMON PULMONARY FUNCTION TEST Routine 02/13/2022 1:29 PM EDT Lung nodule Pulmonary mass documented in this encounter Results * Pulmonary Function Testing (02/13/2022 1:29 PM EDT) FVC Actual Pre-BD 2.18 L COMPAS PFT FVC Pre-BD % of Predicted 67 % COMPAS PFT FVC Predicted 3.25 L COMPAS PFT FVC Pre-BD Z-Score -1.97 COMPAS PFT FVC Lower Limits of Normal 2.36 L COMPAS PFT FEV1 Actual Pre-BD 1.37 L COMPAS PFT FEV1 Pre-BD % of Predicted 56 % COMPAS PFT FEV1 Predicted 2.45 L COMPAS PFT FEV1 Pre-BD Z-Score -2.35 COMPAS PFT FEV1 Lower Limits of Normal 1.71 L COMPAS PFT FEV1 / FVC Actual Pre-BD 63 % COMPAS PFT FEV1/FVC Pre-BD Z-Score -1.46 COMPAS PFT FEV1 / FVC LLN 61 % COMPAS PFT RGE85-14 Actual Pre-BD 0.66 L/s COMPAS PFT TET35-84 Pre-BD % of Predicted 36 % COMPAS PFT [id number] Predicted 1.83 L/s COMPAS PFT ZXY83-74 Pre-BD Z-Score -1.78 COMPAS PFT DLCO Hb Actual Pre-BD 10.64 mL/min/mmHg COMPAS PFT DLCO Hb Pre-BD % of Predicted 51 % COMPAS PFT DLCO Hb Pre-BD Z-Score -3.22 COMPAS PFT DLCO Hb Predicted 20.73 mL/min/mmHg COMPAS PFT DLCO UNC ACT PRE-BD 10.64 mL/min/mmHg COMPAS PFT DLCO UNC PRE-BD % of PRED 51 % COMPAS PFT DLCO UNC PRE-BD Z-SCORE -3.22 % COMPAS PFT DLCO UNC Predicted 20.73 mL/min/mmHg COMPAS PFT DLCO/VA Actual Pre-BD 3.03 mL/min/mmHg /L COMPAS PFT DLCO/VA Pre-BD % of Predicted 75 % COMPAS PFT DLCO/VA Pre-BD Z-Score -1.53 COMPAS PFT DLCO/VA Predicted 4.04 mL/min/mmHg /L COMPAS PFT Narrative COMPAS PFT - 02/13/2022 1:29 PM EDT FINDINGS: FEV1 and FVC are reduced, FEV1/VC is normal. Diffusion capacity not adjusted for hemoglobin is reduced. Normal resting oximetry. IMPRESSION: Spirometry suggests restriction. The presence of restriction or air trapping can be tested by measurement of lung volumes. Moderate reduction in diffusing capacity (DLCO 40 to 60%). Possible restrictive physiology with a low diffusion capacity can be seen in interstitial lung disease, but is not specific. Procedure Note Juan C Jha MD - 02/14/2022 FINDINGS: FEV1 and FVC are reduced, FEV1/VC is normal. Diffusion capacitynot adjusted for hemoglobin is reduced. Normal resting oximetry. IMPRESSION: Spirometrysuggests restriction. The presence of restriction or air trapping can be tested by measurementof lung volumes. Moderate reduction in diffusing capacity (DLCO 40 to 60%). Possiblerestrictive physiology with a low diffusion capacity can be seen in interstitial lung disease, but isnot specific. Landen Goodman MD PFT ORDERABLES COMPAS PFT documented in this encounter Visit Diagnoses Diagnosis Lung nodule Solitary pulmonary nodule Pulmonary mass Swelling, mass, or lump in chest documented in this encounter Care Teams Crystal Slicer Relationship Specialty Start Date End Date Kadi Lane PA [address] [place] [address] PCP - General Family Medicine 07/28/16 documented as of this encounter
--- OUTSIDE RECORDS SUMMARY | 2024-06-20 01:30 | XMS_ITS | Encounter Summary ---
[place] [address] Care Team Providers Care Intermodal Dispatcher Name Role Phone Kadi Lnae Primary Care Provider [phone] Reason for Visit * Reason Onset Date Comments Other 02/17/2022 Chart review bef ore Bronchoscopy Encounter Details Date Type Department Care Team (Late st Contact Info) Description 02/17/2022 Notes [place] [address] Flavia Pike RN Other (Chart review before Bronchoscopy) Social History Tobacco Use Types Packs/Day Years Used Date Smoking Tobacco: Former Smokeless Tobacco: Former Sex and Gender Information Value Date Recorded Sex Assigned at Male 10/05/2023 6:23 PM EDT Gender Identity Male 10/05/2023 6:23 PM EDT Sexual Orientation Straight 10/05/2023 6: 23 PM EDT documented as of this encounter Progress Notes * Flavia Pike RN - 02/17/2022 8:34 AM EDT I have reviewed pt's chart. Pt not on any blood thinner at this time. Pt currently NOT on home oxygen. Same Day Program Nurse to contact pt on 02/20/2022 for a more detailed instructions on his Bronchoscopy. CRUZ Duncan, RN Department of Pulmonary 5C, [facility] Pager: [phone] documented in this encounter Plan of Treatment Upcoming Encounters Date Type Department Care Team (Late st Contact Info) Description 06/20/2024 10:00 AM EST Office Visit Hematology/Oncology at [address] [phone] [address] [place] [address] 06/20/2024 10:30 AM EST Infusion Hematology Oncology at [address] [phone] 07/04/2024 11:00 AM EST Office Visit Hematology/Oncology at [address] [phone] [address] HEMATOLOGY AND ONCOLOGY [place], [place] [address] 07/04/2024 11:30 AM EST Infusion Hematology Oncology at [address] [phone] documented as of this encounter Visit Diagnoses Not on filedocumented in this encounter Care Teams Intermodal Dispatcher Relationship Specialty Start Date End Date Kadi Lane PA [address] [place] [address] PCP - General Family Medicine 07/28/16 documented as of this encounter
--- OUTSIDE RECORDS SUMMARY | 2024-06-20 01:30 | XMS_ITS | Encounter Summary ---
Author Organization Formerly [facility] [place] [address] Care Team Providers Care Tool Procurement Coordinator Name Role Phone Kadi Lane Primary Care Provider [phone] Encounter Details Date Type Department Care Team (Late st Contact Info) Description 06/11/2021 Ancillary Procedure Radiology Library at [facility] [place] [phone] Kadi Lane PA [address] [place] [phone] Social History Tobacco Use Types Packs/Day Years [...] 10:00 AM EST Office Visit Hematology/Oncology at [address] [phone] Lia Barber APRN [address] [place] [address] DR HEMATOLOGY AND ONCOLOGY [place], [place] [address] 06/20/2024 10:30 AM EST Infusion Hematology Oncology at [address] [phone] 07/04/2024 11:00 AM EST Office Visit Hematology/Oncology at [address] [phone] Lia Barber APRN [address] [place] [address] DR HEMATOLOGY AND ONCOLOGY [place], [place] [phone] 07/04/2024 11:30 AM EST Infusion Hematology Oncology at [address] [phone] documented as of this encounter Procedures Procedure Name Priority Date/Time Associated Diagnosis Comments FILM LIBRARY STORAGE ONLY DX SHOULDER Routine 06/11/2021 12:00 AM EST documented in this encounter Results * Film Library- Storage Only DX Shoulder (06/11/2021 12:00 AM EST) Narrative [facility] - 02/11/2022 1:25 PM EDT This exam is auto-finalizing. It's purpose is for storage only. Kadi [place] [facility] FILM LIBRARY ORD ERABLES Performing Organization Address City/State/[facility] Co de Phone Number [place], [place] documented in this encounter Visit Diagnoses Not on filedocumented in this encounter Care Teams Tool Procurement Coordinator Relationship Specialty Start Date End Date Kadi Lane PA [address] [place] [phone] PCP - General Family Medicine 07/28/16 documented as of this encounter
--- OUTSIDE RECORDS SUMMARY | 2024-06-20 01:30 | XMS_ITS | Encounter Summary ---
[place] [address] Care Team Providers Care Insurance Risk Surveyor Name Role Phone Kadi Lane Primary Care Provider [phone] Reason for Visit * Reason Onset Date Comments Other 02/25/2022 Dysphagia s/p Br onch last 02/23/2022 Encounter Details Date Type Department Care Team (Late st Contact Info) Description 02/25/2022 [place] [phone] Flavia Pike RN Other (Dysphagia s/p Bronch last 02/23/2022) Social History Tobacco Use Types Packs/Day Years [...] Telephone Encounter - Flavia Pike RN - 02/25/2022 8:43 AM EDT I have called pt back after consulting with Dr. Moseley. I spoke with pt's and informed her that according to Dr. Moseley, if the difficulty swallowing is getting worse as of today compared to last Wednesday, he should go to the ED, but if it gets better, he may monitor the symptoms until they completely resolve. Pt states that he thinks it may have gotten worse since Wednesday. Pt states he is able to swallow little by little but is painful. Pt also states he is unable to eat since Wednesday. I have instructed pt and that they must go to their local ER [place] for further evaluation. Pt and states they will go to [facility] in [place], [place] now. I have told pt and I will follow up with any test results with [facility]. CRUZ Duncan, RN Department of Pulmonary 5C, [facility] Pager: [phone] * Telephone Encounter - Flavia Pike RN - 02/25/2022 8:18 AM EDT Received message from [facility]: Reason for Call: Bhavna is calling to speak to nurse about patient. Bhavna states patient's voice is more hoarse, and has issues swallowing medication since procedure on 02/23/22. Please call Bhavna to discuss. I have called pt back, spoke to his , who reports that since the Bronchoscopy last Wed02/23/2022, pt started having difficulty swallowing. Pt's states that pt tried drinking water but he isalso having trouble swallowing it and it comes back up his nose. Pt's also reports: -Left side of pt's neck below the ear hurts -a lot of coughing with clear phlegm -a little bit of wheezing -hoarseness of voice Pt denies: -a feeling that a lump is stuck on his throat -sore throat -fever and chills -dyspnea -chest pain/ discomfort -palpable mass/ bump on the neck -hemoptysis I have told pt I will send this message to Dr. Moseley for plan of care moving forward. I have also told pt's that pt may need to be seen in the ED and I will call them back [place] when I hear back from [facility]. CRUZ Duncan, RN Department of Pulmonary 5C, [facility] Pager: [phone] documented in this encounter Plan of Treatment Upcoming Encounters Date Type Department Care Team (Late st Contact Info) Description 06/20/2024 10:00 AM EST Office Visit Hematology/Oncology at [address] [phone] HEMATOLOGY AND ONCOLOGY [place], [place] [id number] 06/20/2024 10:30 AM EST Infusion Hematology Oncology at [address] [phone] 07/04/2024 11:00 AM EST Office Visit Hematology/Oncology at [address] [phone] HEMATOLOGY [place] [address] 07/04/2024 11:30 AM EST Infusion Hematology Oncology at [address] [phone] documented as of this encounter Visit Diagnoses Not on filedocumented in this encounter Care Teams Insurance Risk Surveyor Relationship Specialty Start Date End Date Kadi [place] [address] PCP - General Family Medicine 07/28/16 documented as of this encounter
--- OUTSIDE RECORDS SUMMARY | 2024-06-20 01:30 | XMS_ITS | Encounter Summary ---
Author Organization [facility]ie [facility] [place] [address] Care Team Providers Care Insurance Claims Examiner Name Role Phone Kadi Lane Primary Care Provider [phone] Reason for Visit * Auth/Cert Specialty Diagnoses / Procedures Referred By Contmarlys t Referred To Contact Diagnoses Hypopharyngeal mass Post Op Tracial Obstruction Charlie Marte MD [facility] [place] [address] [facility] Referral ID Status Reason Start Date Expiration Date Visits Re quested Visits Authorized [id number] 1 1 Encounter Details Date Type Department Care Team (Late st Contact Info) Description 02/23/2022 9:15 AM EDT - 02/23/2022 12:30 PM EDT Surgery [place] [id number] Bipin Moseley MD [facility] [place] [address] BRONCHOSCOPY,RIGID OR FLEX,WITH IMAGE GUIDANCE ( ROBOT / MONARCH ) (WRVU 2) Social History Tobacco Use Types Packs/Day Years [...] Pulse 54 02/23/2022 12:15 PM EDT Temperature 36.1 ??C (97 ??F) 02/23/2022 11:30 AM EDT Respiratory Rate 20 02/23/2022 12:15 PM EDT [...] our office at . There is someone corporate communications associate to speak with 07/12. Bipin Moseley MD, [...] Section of Pulmonary & Critical Care Pager: [phone] Source Note - Landen Goodman MD - 02/13/2022 11:00 AM EDT Images from the original note were not included. 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 He denies any history of hepatitis. Past [...] visit Features suggestive of asbestos-related chest disease [id number] area of likely round atelectasis or scarring [...] therapeutically aspirated. The bronchoscope was removed. The [employer] robotic system was used for pre-procedure planning, including 3D rendering with image post-processing on an independent workstation. The [employer] robotic system was then used for intra-procedure [...] Section of Pulmonary and Critical Care Medicine [address] Room [address] [place] [address] Phone Pul Generic: [phone] [email or web address] Pager #[phone] * Op Note - Bipin Moseley MD [...] AM EST Office Visit Hematology/Oncology at [address] [phone] HEMATOLOGY AND ONCOLOGY [place], [place] [address] 06/20/2024 10:30 AM EST Infusion Hematology Oncology at [address] [phone] 07/04/2024 11:00 AM EST Office Visit Hematology/Oncology at [address] [phone] HEMATOLOGY AND ONCOLOGY [place], [place] [id number] 07/04/2024 11:30 AM EST Infusion Hematology Oncology at [address] [phone] documented as of this encounter Procedures Procedure Name Priority Date/Time Associated Diagnosis Comments HC BODY FLUID CELL COUNT Routine 02/23/2022 12:30 PM EDT XR CHEST ONE VIEW STAT 02/23/2022 11: 52 AM EDT NON-REHAB NURSE FINAL REPORT Routine 02/23/2022 11:35 AM EDT [...] OR USE Routine 02/23/2022 10:55 AM EDT NON-REHAB NURSE FINAL REPORT Routine 02/23/2022 10:53 AM EDT CYTOPATHOLOGY NON-GYNECOLOGICAL Routine 02/23/2022 10:53 AM EDT NON-REHAB NURSE FINAL REPORT Routine 02/23/2022 10:51 AM EDT CYTOPATHOLOGY NON-GYNECOLOGICAL Routine 02/23/2022 10:51 AM EDT NON-REHAB NURSE FINAL REPORT Routine 02/23/2022 10:50 AM EDT CYTOPATHOLOGY NON-GYNECOLOGICAL Routine 02/23/2022 10:50 AM EDT NON-REHAB NURSE FINAL REPORT Routine 02/23/2022 10:29 AM EDT CYTOPATHOLOGY NON-GYNECOLOGICAL Routine 02/23/2022 10:29 AM EDT SURGICAL PATHOLOGY REPORT Routine 02/23/2022 10:27 AM EDT SPECIMEN TO PATHOLOGY Routine 02/23/2022 10:27 AM EDT Bronchoscopy, Rx Aspir Pulm Tree ([id number]) Yes 02/23/2022 9:23 AM EDT Lung mass Bronchoscopy, Diagnostic W Lavage (45800) Yes 02/23/2022 9:23 AM EDT Lung mass Bronchoscopy, Transbron Aspir Bx (40672) Yes 02/23/2022 9:23 AM EDT Lung mass Bronchoscopy, Transbronch Biopsy ([id number]) Yes 02/23/2022 9:23 AM EDT Lung mass [facility] Ebus Guided Sampl 1/2 Node Station/Strux (28798) Yes 02/23/2022 9:23 AM EDT Lung mass [facility] Ebus Dx/Tx Intervention Perph Les (46552) Yes 02/23/2022 9:23 AM EDT Lung mass Thoracentesis Needle/Cath Pleura W Imaging (79392) Yes 02/23/2022 9:23 AM EDT Lung mass Bronchoscopy Rigid Flex W Computer Assist Img Navigation (06221) Yes 02/23/2022 9:23 AM EDT Lung mass [...] EDT) Body Fluid Source Pleural Fl M [facility] Color, Fld [place] [facility] Appearance, Fld Slightly Cloudy [facility] WBC Count, Fld [phone](H) <=[phone] /[facility] Comment: Body Fluid was manually performed [...] Polymorphonuclear cells BF % Not Measured % [facility] Comment: Unable to perform accurate differential due to cellular degeneration Polymorphonuclear cell percent and absolute values may contain Neutrophils, Eosinophils, and Basophils. Body fluid smear will be scanned manually for concordance. Mononuclear cells BF % Not Measured % [facility] Comment: Mononuclear cell percent and absolute values may contain Lymphocytes and Monocytes. Body fluid smear will be scanned manually for concordance. Polymorphonuclear cells BF ABS Not Measured /[facility] Comment: Polymorphonuclear cell percent and absolute values may contain Neutrophils, Eosinophils, and Basophils. Body fluid smear will be scanned manually for concordance. Mononuclear cells BF ABS Not Measured /[facility] Comment: Mononuclear cell percent and absolute values may contain Lymphocytes and Monocytes. Body fluid smear will be scanned manually for concordance. Pleural Fluid 02/23/2022 12: 30 PM EDT 02/23/2022 12:40 PM EDT Narrative Resulting Agency Comment Spec In Lab Bipin Moseley MD BODY FLUIDS AND STOOLS ORDERABLES [facility] [place] [address] * XR Chest One View (02/23/2022 11:52 [...] who have questions please contact the health specialist wound care that requested your imaging first. ? Electronically signed by: Bipin Christensen DO, [facility] ([phone]), at 02/23/2022 11:55 AM Narrative 02/23/2022 11:55 [...] patients who have questions please contactthe health specialist wound care that requested your imaging first. Electronically signed by: Bipin Christensen DO, [facility]([phone]), at 02/23/2022 11:55 AM Bipin Moseley MD IMG DX ORDERABL ES * Non-Engineering Lab Technician Final Report (02/23/2022 11:35 AM EDT) Diagnosis Discussion [id number] ? Location: [facility]; [facility]; The signing pathologist has (i) examined the relevant preparation(s) for the specimen(s) and (ii) rendered or confirmed the diagnosis(es). . ? Non-Engineering Lab Technician Final DIAGNOSIS See Discussion Electronically signed by: ?Wilfredo Dorman MD Verified: ??03/02/2022 10:38 ??Cytopathologist Performed at: ??-[facility] Dept. of Pathology, [place], [place] DISCUSSION Pleural fluid (thoracentesis): The sample [...] Cell Block 1. 03/02/2022 10:38 AM EDT [facility] Pleural Fluid 02/23/2022 11: 35 AM EDT 02/23/2022 11:35 AM EDT Bipin Moseley MD PATHOLOGY/CYTOL OGY ORDERABLES Performing Organization Address City/[facility]/ZIP Co de Phone Number [facility] [place] [address] * Cytopathology Non-Gynecological (02/23/2022 11:35 AM EDT) AP Specimen 02/23/2022 11:3 5 AM EDT 02/23/2022 11:35 AM EDT Narrative [facility] - 02/23/2022 11:35 AM EDT Specimen requisition ordered. ??Separate Pathology report to follow Bipin Moseley MD PATHOLOGY/CYTOL OGY ORDERABLES [facility] [place] [address] * Cytopathology Non-Gynecological (02/23/2022 11:21 AM EDT) AP Specimen 02/23/2022 11:2 1 AM EDT 02/23/2022 11:21 AM EDT Narrative [facility] - 02/23/2022 11:21 AM EDT Specimen requisition ordered. ??Separate Pathology report to follow Bipin Moseley MD PATHOLOGY/CYTOL OGY ORDERABLES Performing Organization Address City/[facility]/ZIP Co de Phone Number [facility] [place] [address] * Body Fluid Culture, Aerobic Pleural Fluid (02/23/2022 11:21 AM EDT) Body Fluid Culture No growth [facility] Gram Stain Cytocentrifuge Gram Stain performed No Neutrophils seen. No microorganisms seen. [facility] Pleural Fluid 02/23/2022 11: 21 AM EDT 02/23/2022 12:29 PM EDT Comment:Right Narrative Resulting Agency Comment Spec In Lab Bipin Moseley MD MICROBIOLOGY - GENERAL ORDERABLES Performing Organization Address [facility] Co de Phone Number [facility] [place] [address] * Glucose Level Body Fluid Pleural, Right (02/23/2022 11:14 AM EDT) Glucose, Fluid 12 mg/dL [facility] Comment: Reference intervals are unavailable for this test in body fluids. Comparison of this result with the concentration in blood, serum, or plasma is recommended. This test has not been cleared by the [place] FDA. Performance characteristics of this test for the analysis of body fluids were determined by [facility] in accordance with CLIA requirements. This laboratory is qualified under CLIA to perform high-complexity testing. Gluc, Fld Type Pleural, Right [facility] Pleural, Right 02/23/2022 11 :14 AM EDT 02/23/2022 12:14 PM EDT Narrative Resulting Agency Comment Spec In Lab Bipin Moseley MD BODY FLUIDS AND STOOLS ORDERABLES Performing Organization Address [facility]/ZIP Co de Phone Number [facility] [place] [address] * pH Body Fluid Pleural, Right (02/23/2022 11:14 AM EDT) pH, Fluid 7.09 [facility] Comment: Reference intervals are unavailable for this test in body fluids. Comparison of this result with the concentration in blood, serum, or plasma is recommended. This test has not been cleared by the [place] FDA. Performance characteristics of this test for the analysis of body fluids were determined by [facility] in accordance with CLIA requirements. This laboratory is qualified under CLIA to perform high-complexity testing. pH, Fld Type Pleural, Right [facility] Pleural, Right 02/23/2022 11 :14 AM EDT 02/23/2022 12:14 PM EDT Narrative Resulting Agency Comment Spec In Lab Bipin Moseley MD BODY FLUIDS AND STOOLS ORDERABLES Performing Organization Address [facility] Co de Phone Number [facility] [place] [address] * Protein Level Body Fluid Pleural, Right (02/23/2022 11:14 AM EDT) Protein, Fluid 4.7 g/dL [facility] Comment: Reference intervals are unavailable for this test in body fluids. Comparison of this result with the concentration in blood, serum, or plasma is recommended. This test has not been cleared by the [place] FDA. Performance characteristics of this test for the analysis of body fluids were determined by [facility] in accordance with CLIA requirements. This laboratory is qualified under CLIA to perform high-complexity testing. Prot, Fld Type Pleural, Right [facility] Pleural, Right 02/23/2022 11 :14 AM EDT 02/23/2022 12:14 PM EDT Narrative Resulting Agency Comment Spec In Lab Bipin Moseley MD BODY FLUIDS AND STOOLS ORDERABLES Performing Organization Address City/[facility]/ZIP Co de Phone Number [facility] [place] [address] * Lactate Dehydrogenase Body Fluid Pleural, Right (02/23/2022 11:14 AM EDT) Lactate Dehydrogenase, Fluid >2,500 unit/L [facility] Comment: Reference intervals are unavailable for this test in body fluids. Comparison of this result with the concentration in blood, serum, or plasma is recommended. This test has not been cleared by the [place] FDA. Performance characteristics of this test for the analysis of body fluids were determined by [facility] in accordance with CLIA requirements. This laboratory is qualified under CLIA to perform high-complexity testing. LDH, Fld Type Pleural, Right [facility] Pleural, Right 02/23/2022 11 :14 AM EDT 02/23/2022 12:14 PM EDT Narrative Resulting Agency Comment Spec In Lab Bipin Moseley MD BODY FLUIDS AND STOOLS ORDERABLES [facility] [place] [address] * XR Fluoro No Rad <1Hr - OR Use (02/23/2022 10:55 AM EDT) Narrative Dicom, Auditing User - 02/23/2022 10:56 AM EDT This exam is auto-finalizing. No interpretation was done. Bipin Moseley MD IMG FLUORO LAURA APARICIO * Non-Engineering Lab Technician Final Report (02/23/2022 10:53 AM EDT) Diagnosis Discussion [id number] ? Location: [facility]; [facility]; A The signing pathologist has (i) examined the relevant preparation(s) for the specimen(s) and (ii) rendered or confirmed the diagnosis(es). . ? Non-Engineering Lab Technician Final DIAGNOSIS See Discussion Electronically signed by: ?Wilberto Castillo MD Verified: ??02/26/2022 13:44 ??Pathologist Performed at: ??-[facility] Dept. of Pathology, [place], [place] DISCUSSION Lung, right lower lobe (Navigation-guided FNA): Predominantly ciliated respiratory epithelial cells and blood. The material might not be electronics parts sales representative of the target lesion. Clinical and radiologic correlation is required. Cell block was examined. ?? Additional multiple deeper levels were examined. Please see also the concurrent surgical specimen, [id number]. CLINICAL INFORMATION Specimen Source : Lung, right lower lobe (Navigation-guided FNA, assisted) Pertinent Clinical Data and Significant Therapy: Lung mass/Robotic bronch with EBUS/Thoracentesis / LINA/Pradip Clinical Impression : Right lower lobe Pertinent [...] for final interpretation. 02/26/2022 1:44 PM EDT [facility] RIGHT LUNG STRUCTURE / Unknown 02/23/2022 10:53 AM EDT 02/23/2022 10:53 AM EDT Bipin Moseley MD PATHOLOGY/CYTOL OGY ORDERABLES [facility] [place] [address] * Cytopathology Non-Gynecological (02/23/2022 10:53 AM EDT) AP Specimen 02/23/2022 10:5 3 AM EDT 02/23/2022 10:53 AM EDT Narrative [facility] - 02/23/2022 10:53 AM EDT Specimen requisition ordered. ??Separate Pathology report to follow Bipin Moseley MD PATHOLOGY/[place] [address] * Non-Engineering Lab Technician Final Report (02/23/2022 10:51 AM EDT) Diagnosis Discussion [id number] ? Location: [facility]; [facility]; The signing pathologist has (i) examined the relevant preparation(s) for the specimen(s) and (ii) rendered or confirmed the diagnosis(es). . ? Non-Engineering Lab Technician Final DIAGNOSIS Negative for Malignancy Electronically signed by: ?Jonathan EMERSON, Wilberto Verified: ??02/25/2022 17:00 ??Pathologist Performed at: ??-[facility] Dept. of Pathology, [place], [place] DISCUSSION Lymph node, 11R (EBUS-guided FNA): Scant fragments of lymphoid tissue are present, ?consistent with focal lymph node sampling. No overtly cytologically malignant cells seen. The material might not be fully electronics parts sales representative of the target lesion. Clinical and [...] Cell Block 1. 02/25/2022 5:00 PM EDT [facility] LYMPH NODE SPECIMEN / Unknown 02/23/2022 10:51 AM EDT 02/23/2022 10:51 AM EDT Bipin Moseley MD PATHOLOGY/CYTOL OGY ORDERABLES Performing Organization Address [facility] Co de Phone Number [facility] [place] [address] * Cytopathology Non-Gynecological (02/23/2022 10:51 AM EDT) AP Specimen 02/23/2022 10:5 1 AM EDT 02/23/2022 10:51 AM EDT Narrative [facility] - 02/23/2022 10:51 AM EDT Specimen requisition ordered. ??Separate Pathology report to follow Bipin Moseley MD PATHOLOGY/CYTOL OGJoe ORDERABLES Performing Organization Address [facility] Co de Phone Number [facility] [place] [address] * Non-Engineering Lab Technician Final Report (02/23/2022 10:50 AM EDT) Diagnosis Discussion [id number] ? Location: [facility]; [facility]; A The signing pathologist has (i) examined the relevant preparation(s) for the specimen(s) and (ii) rendered or confirmed the diagnosis(es). . ? Non-Engineering Lab Technician Final DIAGNOSIS Negative for Malignancy Electronically signed by: ?Dandy EMERSON, Wilfredo Lincoln Verified: ??03/02/2022 10:04 ??Cytopathologis t Performed at: ??-[facility] Dept. of Pathology, [place], [place] DISCUSSION Lung: right lower lobe (bronchial [...] Cell Block 1. 03/02/2022 10:04 AM EDT [facility] BRONCHIAL STRUCTURE / Unknown 02/23/2022 10:50 AM EDT 02/23/2022 10:50 AM EDT Bipin Moseley MD PATHOLOGY/CYTOL OGY ORDERABLES [facility] [place] [address] * Cytopathology Non-Gynecological (02/23/2022 10:50 AM EDT) AP Specimen 02/23/2022 10:5 0 AM EDT 02/23/2022 10:50 AM EDT Narrative [facility] - 02/23/2022 10:50 AM EDT Specimen requisition ordered. ??Separate Pathology report to follow Bipin Moseley MD PATHOLOGY/CYTOL OGY ORDERABLES Performing Organization Address [facility]/ZIP Co de Phone Number [facility] [place] [address] * Non-Engineering Lab Technician Final Report (02/23/2022 10:29 AM EDT) Diagnosis Discussion [id number] ? Location: [place]; [place]; A The signing pathologist has (i) examined the relevant preparation(s) for the specimen(s) and (ii) rendered or confirmed the diagnosis(es). . ? Non-Engineering Lab Technician Final DIAGNOSIS See Discussion Electronically signed by: ?Jonathan EMERSON, Wilberto Verified: ??02/26/2022 13:42 ??Pathologist Performed at: ??-[facility] Dept. of Pathology, [place], [place] DISCUSSION Lung, right lower lobe (Navigation-guided tissue biopsy and touch imprint cytology): Respiratory epithelial cells and a minute fragment of bronchial/respirat ory epithelial mucosa with focal chronic inflammation and denuded epithelium. No overtly cytologically malignant cells seen; the material might not be electronics parts sales representative of the target lesion. Clinical and radiologic correlation is required. Cell block was examined. ?? Additional multiple deeper levels were examined. Please see also the concurrent surgical specimen, [id number]. CLINICAL INFORMATION Specimen Source : Lung, right [...] for final interpretation. 02/26/2022 1:42 PM EDT [facility] RIGHT LUNG STRUCTURE / Unknown 02/23/2022 10:29 AM EDT 02/23/2022 10:29 AM EDT Bipin Moseley MD PATHOLOGY/CYTOL OGY ORDERABLES Performing Organization Address [facility] [place] [address] * Cytopathology Non-Gynecological (02/23/2022 10:29 AM EDT) AP Specimen 02/23/2022 10:2 9 AM EDT 02/23/2022 10:29 AM EDT Narrative [facility] - 02/23/2022 10:29 AM EDT Specimen requisition ordered. ??Separate Pathology report to follow Bipin Moseley MD PATHOLOGY/CYTOL OGJoe ORDERABLES Performing Organization Address [facility] [place] [place] [address] * Surgical Pathology Report (02/23/2022 10:27 AM EDT) Final Diagnosis [id number] ? Location: [facility]; [facility]; The signing pathologist has (i) examined the relevant preparation(s) for the specimen(s) and (ii) rendered or confirmed the diagnosis(es). . ?Surgical Pathology DIAGNOSIS A - Lung, right lower lobe, biopsy: - Benign lung parenchyma and bronchial tissue. Electronically signed by: ?Triny Rey MD Verified: ??02/26/2022 11:04 ??Pathologist Performed at: ??-[facility] Dept. of Pathology, [place], [place] DISCUSSION Histologic features do not appear to reflect sampling of a clinically suspected mass- forming lesion. ADDITIONAL STUDIES Multiple deeper levels were examined. SPECIMEN(S) SUBMITTED A - Lung, right lower lobe, biopsy CLINICAL INFORMATION Lung mass/robotic bronch with EBUS/thoracente sis/GA/Alex matamoros. SPECIMEN PROCESSING A - Labeled/Fixativ e: Right lower lobe, formalin. Quantity/Size: Five, averaging 0.2 cm. Tissue Description: Soft, anguiano-pink tissues. Sections/Proces sing: Submitted en toto ??in 1 cassette labeled A1. ??jnr 02/26/2022 11:04 AM EDT [facility] LUNG STRUCTURE / Unknown 02/23/2022 10:27 AM EDT 02/23/2022 10:27 AM EDT Bipin Moseley MD PATHOLOGY/[place] [address] * Specimen to Pathology (02/23/2022 10:27 AM EDT) AP Specimen 02/23/2022 10:2 7 AM EDT 02/23/2022 10:27 AM EDT Narrative [facility] - 02/23/2022 10:27 AM EDT Specimen requisition ordered. ??Separate Pathology report to follow Bipin Moseley MD PATHOLOGY/CYTOL OGY ORDERABLES Performing Organization Address City/[facility]/ZIP Co de Phone Number [facility] [place] [address] * Phosphorus (02/23/2022 7:36 AM EDT) Phosphorus 3.4 2.5 - 4.5 mg/dL [facility] Blood Venous Draw / Unknown 02/23/2022 7:36 AM EDT 02/23/2022 7:40 AM EDT Narrative Resulting Agency Comment Spec In Lab Bipin Moseley MD CHEMISTRY ORDER SAEED [facility] [place] [address] * Differential, Automated (02/23/2022 7:36 AM EDT) Neutrophil % 66.3 % [facility] Neutrophil Absolute 3.62 1.70 - 6.10 x10(3)/[facility] Lymph % 16.9 % [facility] Lymphocytes Abs 0.9 0.9 - 3.2 x10(3)/[facility] Monocyte % 11.9 % [facility] Monocyte Abs 0.6 0.3 - 0.9 x10(3)/[facility] Eos % 3.7 % [facility] Eosinophils Abs 0.2 0.0 - 0.4 x10(3)/[facility] Basophil % 0.6 % [facility] Baso Absolute 0.0 0.0 - 0.1 x10(3)/[facility] Immature Gran % 0.60 % [facility] Comment: Immature granulocytes(IG's)percentage and absolute count will include metamyelocytes, myelocytes, and promyelocytes. Blood smears from CBCs yielding IG's will be scanned manually for concordance. If this scan disagrees with the automated IG or if promyelocytes are noted, a manual differential will be performed. Immature Gran Absolute 0.03 0.00 - 0.04 x10(3)/[facility] LABORATORY Blood 02/23/2022 7:36 AM EDT 02/23/2022 7:38 AM EDT Narrative Resulting Agency Comment Spec In Lab [place] HEMATOLOGY ORDERABL ES [facility] [place] [address] * (ABNORMAL) Hemogram (02/23/2022 7:36 AM EDT) White Blood Cell 5.4 4.0 - 9.5 x10(3)/mc L [facility] Red Blood Cell 3.70(L) 4.58 - 5.54 x10(6)/ L [facility] Hemoglobin 12.4(L) 13.7 - 16.5 g/dL [facility] Hematocrit 36.9(L) 40.5 - 48.5 % [facility] Mean Cell Volume 99.7(H) 82.9 - 93.1 fL [facility] Mean Cell Hemoglobin 33.5(H) 27.5 - 32.1 pg [facility] Mean Cell Hemoglobin Concentration 33.6 32.0 - 35.7 g/dL [facility] Platelet 247 145 - 357 x10(3)/mc L [facility] RDW Standard Deviation 45.0 36.0 - 45.0 fL [facility] RDW coefficient of variation 12.4 11.4 - 13.8 % [facility] Mean Platelet Volume 9.0 7.6 - 12.9 [facility] LABORATORY NRBC% auto 0.0 % [facility] LABORATORY NRBC Absolute 0.000 0.000 - 0.000 x10(3)/mc L [facility]ORY Blood 02/23/2022 7:36 AM EDT 02/23/2022 7:38 AM EDT Narrative Resulting Agency Comment Spec In Lab [place] HEMATOLOGY ORDERABL ES Performing Organization Address City/State/[facility] Co de Phone Number [facility] [place] [address] * (ABNORMAL) Comprehensive metabolic panel (non-fasting) (02/23/2022 7:36 AM EDT) Glucose 98 65 - 199 mg/dL [facility] Comment:Diabetes: >=200 mg/d L plus symptoms Blood Urea Nitrogen 22(H) 10 - 20 mg/dL [facility] Creatinine 0.92 0.80 - 1.50 mg/dL [facility] Sodium 142 135 - 145 mmol/L [facility] Potassium 5.1(H) 3.5 - 5.0 mmol/L [facility] Comment: Please note: ??Patients with WBC >100,000 may have falsely elevated Potassium levels. ??For accurate Potassium quantification in these patients send serum separator tube (gold top) for subsequent determinations. ??Contact the Clinical Chemistry Laboratory if there are any questions. Chloride 104 98 - 107 mmol/L [facility] Carbon Dioxide 30 22 - 31 mmol/L [facility] Anion Gap 8 5 - 15 mmol/L [facility] Calcium 9.1 8.5 - 10.5 mg/dL [facility] Protein, Total 7.1 6.1 - 8.0 g/dL [facility] Albumin 4.0 3.2 - 5.2 g/dL [facility] Aspartate Aminotransferase 20 0 - 39 unit/L [facility] Alanine Aminotransferase 17 0 - 55 unit/L [facility] Alkaline Phosphatase 221(H) 40 - 130 unit/L [facility] Bilirubin, Total 0.6 0.2 - 1.3 mg/dL [facility] Est Glomerular Filtration Rate 85 >=60 mL/min/1. 73 m?? [facility] Comment: This patient's estimated GFR [...] In Lab Landen Goodman MD CHEMISTRY ORDERABLES [facility] [place] [address] documented in this encounter Visit Diagnoses Diagnosis Lung nodule Solitary pulmonary nodule Pulmonary mass Swelling, mass, or lump in chest Lung mass Swelling, mass, or lump in chest documented in this encounter Active and Recently Administered Medications Care Teams Insurance Claims Examiner Relationship Specialty Start Date End Date Kadi Lane PA [address] [place] [address] PCP - General Family Medicine 07/28/16 documented as of this encounter
--- OUTSIDE RECORDS SUMMARY | 2024-06-20 01:30 | XMS_ITS | Encounter Summary ---
Author Organization [facility] [place] [address] Care Team Providers Care Surgical Forceps Fabricator Name Role Phone Kadi Lane Primary Care Provider [phone] Encounter Details Date Type Department Care Team (Late st Contact Info) Description 12/19/2021 Ancillary Procedure Radiology Library at [facility] [place] [phone] Kadi [address] PA [address] [place] [phone] Social History Tobacco Use Types Packs/Day Years [...] 10:00 AM EST Office Visit Hematology/Oncology at [address] [phone] Lia Barber APRN [address] [place] [address] DR HEMATOLOGY AND ONCOLOGY [place], [place] [id number] 06/20/2024 10:30 AM EST Infusion Hematology Oncology at [address] [phone] 07/04/2024 11:00 AM EST Office Visit Hematology/Oncology at [address] [phone] Lia Barber APRN [address] [place] [address] DR HEMATOLOGY AND ONCOLOGY [place], [place] [address] 07/04/2024 11:30 AM EST Infusion Hematology Oncology at [address] [phone] documented as of this encounter Procedures Procedure Name Priority Date/Time Associated Diagnosis Comments FILM LIBRARY STORAGE ONLY DX CHEST Routine 12/19/2021 12:00 AM EDT documented in this encounter Results * Film Library- Storage Only DX Chest (12/19/2021 12:00 AM EDT) Narrative [facility] - 02/11/2022 1:20 PM EDT This exam is auto-finalizing. It's purpose is for storage only. [place] IMG FILM LIBRARY ORD ERABLES Performing Organization Address City/State/[facility] Co de Phone Number [place], [place] documented in this encounter Visit Diagnoses Not on filedocumented in this encounter Care Teams Surgical Forceps Fabricator Relationship Specialty Start Date End Date Kadi Lane PA [address] [place] [id number] PCP - General Family Medicine 07/28/16 documented as of this encounter
--- OUTSIDE RECORDS SUMMARY | 2024-06-20 01:30 | XMS_ITS | Encounter Summary ---
[place] [address] Care Team Providers Care Hydroelectric Production Manager Name Role Phone Kadi Lane Primary Care Provider [phone] Reason for Referral * Consultation (Urgent) - Closed Specialty Diagnoses / Procedures Referred By Jorge Luis bowers Referred To Contact Pulmonology Diagnoses Pulmonary mass Landen Goodman MD [address] [place] [address] [facility] Pulmonology [address] [place] [address] Referral ID Status Reason Start Date Expiration Date V isits Requested Visits Authorized [id number] Closed Test Only 02/13/2022 02/13/2023 1 1 * Diagnostic Test (Routine) - Closed Specialty Diagnoses / Procedures Referred By Jorge Luis bowers Referred To Contact Radiology Diagnoses Lung nodule Pulmonary mass Procedures CT Chest w Contrast Landen Goodman MD [address] [place] [address] [facility] [place] [address] Referral ID Status Reason Start Date Expiration Date V isits Requested Visits Authorized [id number] Closed Specialty Service Requested 02/13/2022 08/14/2023 1 1 Reason for Visit * Reason Comments Advice Only * Consultation (Urgent) - Closed Specialty Diagnoses / Procedures Referred By Contac t Referred To Contact Thoracic Surgery Diagnoses Solitary pulmonary nodule Solitary pulmonary nodule Kadi Lane PA [address] [place] [address] [facility] Thoracic Surg [address] [place] [phone] Referral ID Status Reason Start Date Expiration Date V isits Requested Visits Authorized [id number] Closed Consult, Test & Treat PCP Updated and/or Approved 02/04/2022 02/04/2023 6 6 Encounter Details Date Type Department Care Team (Latest Contact Info) Description 02/13/2022 11:00 AM EDT Office [place] [address] Landen Goodman MD [address] [place] [address] Lung nodule (Primary Dx); Pre-operative cardiovascular examination, high risk surgery; Pulmonary [...] Sign Reading Time Taken Comments Blood Pressure 144/65 02/13/2022 10:54 AM EDT Pulse 54 02/13/2022 10:54 AM EDT Temperature 36 ??C (96.8 ??F) 02/13/2022 10: 54 AM EDT Respiratory Rate 18 02/13/2022 10:5 4 AM EDT Oxygen Saturation 98% 02/13/2022 10: 54 AM EDT Inhaled Oxygen Concentration - - Weight 62.5 kg (137 lb 12.6 oz) 022 10:54 AM EDT Height 167.4 cm (5' 5.91) 02/13/2022 1 0:54 AM EDT Body Mass Index 22.3 02/13/2022 10:54 AM EDT documented in this encounter Patient Instructions * Patient Instructions* Mary Douglas RN - 02/13/2022 11:00 AM EDT Thank you for visiting Dr. Goodman in clinic 02/13/22 Dr. Goodman would like to schedule you for your Bronchoscopy, Navigational Bronchoscopy and Endobronchial Ultrasound. We will also arrange a CT Scan of your chest with contrast and an MRI of your brain. Please go to the lab at 3L before you leave today for a blood draw. Navigational bronchoscopy is used to perform biopsy of peripheral lung lesions, place markers for radiation therapy (Electromagnetic navigation bronchoscopy or ENB), and/or facilitate surgical removal of a small peripheral lung lesion. ENB is a medical procedure utilizing electromagnetic technology designed to localize and guide endoscopic tools or catheters through the bronchial pathways of the lung. Bronchoscopy is the term for a procedure in which a scope (thin tube with a light source on the end), is placed through your mouth or nose and into your trachea and large airways. A small amount of tissue from the surface of the area is removed. The removal of the tissue is called a biopsy. Endobronchial Ultra Sound or EBUS, is a procedure used to diagnose and stage lung cancer. It is done using a flexible camera, called a bronchoscope that is passed down through the mouth, into the lung. The device is able to take pictures, samples of tissue and fluids, as well as inspect nearby lymph nodes. This is a less invasive alternative to some surgeries. You will need to have a CT scan of your chest without IV contrast. You will arrive to [facility] area 3[facility] to have your CT scan and then you will go to [facility] - Same Day program to have your Navigational Bronchoscopy. Your procedure is scheduled for TBD You will receive a phone call from the OR nurses on TBD after 2pm through 6 pm. They will confirm your arrival time, review what medications to take and when to stop eating and drinking. Your procedure will occur in temporary receptionist area 4W. Please call Thoracic Surgery at [phone] with any questions or concerns. Exercise each day for 30 minutes or [...] questions or concerns. documented in this encounter H&P Notes * Landen Goodman MD - 02/13/2022 11:00 AM EDT Images from the original note were not included. 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 He denies any history of hepatitis. Past [...] visit Features suggestive of asbestos-related chest disease [id number] area of likely round atelectasis or scarring [...] are back. Landen Goodman MD Thoracic Surgery * Zainab Jiménez Aiyana - 02/13/2022 11:00 AM EDT Images from the original note were not included. Thoracic Surgery Attending Outpatient Consultation Note Landen Goodman MD [place], [place] [address] FAX: Date of Consultation: 02/13/2022 This consultation [...] normal respiratory status and so he was discharge and encouraged to follow up with his PCP. Follow up imaging ordered by PCP demonstrated the posterior right lower lobe mass, along with right sided pleural effusion (which has been present since 2017). 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 He denies any history of hepatitis. Past [...] visit Features suggestive of asbestos-related chest disease [id number] area of likely round atelectasis or scarring [...] for malignancy, cT2N?, with long standing (since 2017) pleural effusion. Biopsy will need to be obtained to confirm this and for further treatment planning. Plan of Management: 1. Navigational bronchoscopy, EBUS, [...] during treatment. 9. Call with any questions Zainab Jiménez 02/13/22 documented in this encounter Plan of Treatment Upcoming Encounters Date Type Department Care Team (Late st Contact Info) Description 06/20/2024 10:00 AM EST Office Visit Hematology/Oncology at [address] [phone] HEMATOLOGY AND ONCOLOGY [place], [place] [address] 06/20/2024 10:30 AM EST Infusion Hematology Oncology at [address] [phone] 07/04/2024 11:00 AM EST Office Visit Hematology/Oncology at [address] [phone] HEMATOLOGY AND ONCOLOGY [place], [place] [phone] 07/04/2024 11:30 AM EST Infusion Hematology Oncology at [address] [phone] Scheduled Orders Name Type Priority Associated Diagnoses Orde r Schedule EKG 12 Lead ECG Routine Lung nodule Pre-operative cardiovascular examination, high risk surgery Pulmonary mass Expected: 02/13/2022, Expires: 08/15/2022 Scheduled Referrals Name Type Priority Associated Diagnoses Order Schedule Referral to Pulmonology Outpatient Referral Urgent Pulmonary mass Ordered: 02/13/2022 documented as of this encounter Results * CT Chest w [...] who have questions please contact the health group care worker that requested your imaging first. ? Narrative 06/19/2022 3:14 PM EST EXAMINATION: CT [...] patients who have questions please contactthe health group care worker that requested your imaging first. Landen Goodman MD [facility] CT ORDERABLES * (ABNORMAL) Comprehensive metabolic panel (non-fasting) (02/23/2022 7:36 AM EDT) Glucose 98 65 - 199 mg/dL [facility] Comment:Diabetes: >=200 mg/d L plus symptoms Blood Urea Nitrogen 22(H) 10 - 20 mg/dL [facility] Creatinine 0.92 0.80 - 1.50 mg/dL [facility] Sodium 142 135 - 145 mmol/L [facility] Potassium 5.1(H) 3.5 - 5.0 mmol/L [facility] Comment: Please note: ??Patients with WBC >100,000 may have falsely elevated Potassium levels. ??For accurate Potassium quantification in these patients send serum separator tube (gold top) for subsequent determinations. ??Contact the Clinical Chemistry Laboratory if there are any questions. Chloride 104 98 - 107 mmol/L [facility] Carbon Dioxide 30 22 - 31 mmol/L [facility] Anion Gap 8 5 - 15 mmol/L [facility] Calcium 9.1 8.5 - 10.5 mg/dL [facility] Protein, Total 7.1 6.1 - 8.0 g/dL [facility] Albumin 4.0 3.2 - 5.2 g/dL [facility] Aspartate Aminotransferase 20 0 - 39 unit/L [facility] Alanine Aminotransferase 17 0 - 55 unit/L [facility] Alkaline Phosphatase 221(H) 40 - 130 unit/L [facility] Bilirubin, Total 0.6 0.2 - 1.3 mg/dL [facility] Est Glomerular Filtration Rate 85 >=60 mL/min/1. 73 m?? [facility] Comment: This patient's estimated GFR [...] In Lab Landen Goodman MD CHEMISTRY ORDERABLES [facility] [place] [address] * Pulmonary Function Testing (02/13/2022 1:29 PM [...] / FVC LLN 61 % COMPAS PFT [id number] Actual Pre-BD 0.66 L/s COMPAS PFT [id number] Pre-BD % of Predicted 36 % COMPAS PFT [id number] Predicted 1.83 L/s COMPAS PFT [id number] Pre-BD Z-Score -1.78 COMPAS PFT DLCO Hb [...] is not specific. Procedure Note Juan C hJa MD - 02/14/2022 FINDINGS: FEV1 and FVC [...] in this encounter Visit Diagnoses Diagnosis Lung nodule- Primary Solitary pulmonary nodule Pre-operative cardiovascular examination, high risk surgery Pre-operative cardiovascular examination Pulmonary mass Swelling, mass, or lump in chest Lung nodule Solitary pulmonary nodule Pulmonary mass Swelling, mass, or lump in chest Lung nodule Solitary pulmonary nodule Pulmonary mass Swelling, mass, or lump in chest documented in this encounter Care Teams Hydroelectric Production Manager Relationship Specialty Start Date End Date Kadi Lane PA [address] [place] [address] PCP - General Family Medicine 07/28/16 documented as of this encounter
[2024-06-20 09:03] LABS: Abs Immature Grans 0.01 10^3/uL (0.0-0.06); Absolute Basophil Count 0.04 10^3/uL (0.0-0.2); Absolute Eosinophil Count 0.07 10^3/uL (0.0-0.7); Absolute Lymphocyte Count 0.59 10^3/uL (1.2-3.4); Absolute Monocyte Count 0.62 10^3/uL (0.1-0.8); Absolute Neutrophil Count 4.13 10^3/uL (1.2-6.7); Basophils % 0.7 %; Eosinophils % 1.3 %; HCT 32.5 % (40.0-50.0); HGB 10.8 g/dL (13.5-17.5); Immature Grans % 0.2 %; Lymphocytes % 10.8 %; MCH 32.2 pg (27.0-33.0); MCHC 33.2 % (32.0-36.0); MCV 97 fL (80-95); MPV 8.1 fL (8.0-11.0); Monocytes % 11.4 %; Neutrophils % 75.6 %; Platelet Count 262 10^3/uL (130-400); RBC 3.35 10^6/uL (4.36-5.78); RDW-SD 49.2 fL; WBC 5.46 10^3/uL (4.4-10.8)
[2024-06-20 09:35] LABS: ALT 26 U/L (16-63); AST 23 U/L (15-37); Albumin 2.7 g/dL (3.4-5.0); Alkaline Phosphatase 194 U/L (46-116); Anion Gap 4.2 mmol/L (3-11); BUN 12 mg/dL (7-18); Bilirubin, Total 0.71 mg/dL (0.2-1.0); CO2 33.8 mmol/L (21.0-32.0); CREATININE 0.9 mg/dL (0.70-1.30); Calcium 9.1 mg/dL (8.5-10.1); Chloride 99 mmol/L (98-107); Estimated GFR 86.34 (mL/min/1.73m2); Glucose 116 mg/dL (74-106); Magnesium 1.7 mg/dL (1.8-2.4); Sodium 137 mmol/L (136-145); TSH 0.92 uIU/mL (0.36-3.74); Total Protein 7.5 g/dL (6.4-8.2)
== END 2024-06-20 01:09 | disposition home or self-care (01) ==
LOC: LBO 01:08
PROVIDERS: Visit Provider Internal Medicine Medical Oncology
DX: Z79.899 Other long term (current) drug therapy (principal); C34.91 Malignant neoplasm of unspecified part of right bronchus or lung
CPT/HCPCS: 36415; 80053; 83735; 84439; 84443; 85025

== ENCOUNTER 2024-07-10 12:35 | Outpatient (CLI) | payer MEDICARE, SELFPAY ==
[2024-07-10 12:38] LABS: Abs Immature Grans 0.04 10^3/uL (0.0-0.06); Absolute Basophil Count 0.06 10^3/uL (0.0-0.2); Absolute Eosinophil Count 0.07 10^3/uL (0.0-0.7); Absolute Lymphocyte Count 0.76 10^3/uL (1.2-3.4); Absolute Monocyte Count 0.81 10^3/uL (0.1-0.8); Absolute Neutrophil Count 6.22 10^3/uL (1.2-6.7); Basophils % 0.8 %; Eosinophils % 0.9 %; HCT 35.9 % (40.0-50.0); HGB 11.5 g/dL (13.5-17.5); Immature Grans % 0.5 %; Lymphocytes % 9.5 %; MCH 31.3 pg (27.0-33.0); MCV 98 fL (80-95); MPV 8.6 fL (8.0-11.0); Monocytes % 10.2 %; Neutrophils % 78.1 %; Platelet Count 304 10^3/uL (130-400); RBC 3.68 10^6/uL (4.36-5.78); RDW 13.9 % (11.8-14.1); RDW-SD 49.2 fL; WBC 7.96 10^3/uL (4.4-10.8)
[2024-07-10 13:07] LABS: ALT 21 U/L (16-63); AST 25 U/L (15-37); Albumin 2.9 g/dL (3.4-5.0); Alkaline Phosphatase 211 U/L (46-116); Anion Gap 4.8 mmol/L (3-11); BUN 15 mg/dL (7-18); Bilirubin, Total 0.39 mg/dL (0.2-1.0); CO2 33.2 mmol/L (21.0-32.0); CREATININE 0.9 mg/dL (0.70-1.30); Calcium 9.2 mg/dL (8.5-10.1); Chloride 98 mmol/L (98-107); Estimated GFR 86.34 (mL/min/1.73m2); FREE T4 1.07 ng/dL (0.76-1.46); Glucose 106 mg/dL (74-106); Magnesium 1.6 mg/dL (1.8-2.4); Potassium 4.2 mmol/L (3.5-5.1); Sodium 136 mmol/L (136-145); TSH 0.87 uIU/mL (0.36-3.74); Total Protein 8.1 g/dL (6.4-8.2)
== END 2024-07-10 12:36 | disposition home or self-care (01) ==
LOC: LBO 12:36
PROVIDERS: Visit Provider Internal Medicine Medical Oncology
DX: Z79.899 Other long term (current) drug therapy (principal); C34.91 Malignant neoplasm of unspecified part of right bronchus or lung
CPT/HCPCS: 36415; 80053; 83735; 84439; 84443; 85025

== ENCOUNTER 2024-07-31 14:04 | Outpatient (CLI) | payer MEDICARE, SELFPAY ==
[2024-07-31 13:10] LABS: Abs Immature Grans 0.02 10^3/uL (0.0-0.06); Absolute Basophil Count 0.04 10^3/uL (0.0-0.2); Absolute Eosinophil Count 0.07 10^3/uL (0.0-0.7); Absolute Lymphocyte Count 0.68 10^3/uL (1.2-3.4); Absolute Monocyte Count 0.75 10^3/uL (0.1-0.8); Absolute Neutrophil Count 6.06 10^3/uL (1.2-6.7); Basophils % 0.5 %; Eosinophils % 0.9 %; HGB 11.1 g/dL (13.5-17.5); Immature Grans % 0.3 %; Lymphocytes % 8.9 %; MCH 31.4 pg (27.0-33.0); MCHC 32.6 % (32.0-36.0); MCV 96 fL (80-95); MPV 8.4 fL (8.0-11.0); Monocytes % 9.8 %; Neutrophils % 79.6 %; Platelet Count 282 10^3/uL (130-400); RBC 3.54 10^6/uL (4.36-5.78); RDW 13.9 % (11.8-14.1); RDW-SD 49.4 fL; WBC 7.62 10^3/uL (4.4-10.8)
[2024-07-31 13:35] LABS: ALT 20 U/L (16-63); AST 26 U/L (15-37); Albumin 2.9 g/dL (3.4-5.0); Alkaline Phosphatase 181 U/L (46-116); Anion Gap 6.3 mmol/L (3-11); BUN 18 mg/dL (7-18); Bilirubin, Total 0.4 mg/dL (0.2-1.0); CO2 32.7 mmol/L (21.0-32.0); Chloride 96 mmol/L (98-107); Estimated GFR 76.08 (mL/min/1.73m2); Glucose 118 mg/dL (74-106); Magnesium 1.7 mg/dL; Potassium 4.6 mmol/L (3.5-5.1); Sodium 135 mmol/L (136-145); TSH 1.42 uIU/mL (0.36-3.74); Total Protein 7.7 g/dL (6.4-8.2)
[2024-07-31 22:05] LABS: T4, Free 1.2 ng/dL (0.8-2.2)
== END 2024-07-31 14:05 | disposition home or self-care (01) ==
LOC: LBO 14:04
PROVIDERS: Visit Provider Internal Medicine Medical Oncology
DX: Z79.899 Other long term (current) drug therapy (principal); C34.91 Malignant neoplasm of unspecified part of right bronchus or lung
CPT/HCPCS: 36415; 80053; 83735; 84439; 84443; 85025

== ENCOUNTER 2024-10-30 11:34 | Outpatient (CLI) | payer MEDICARE, SELFPAY ==
[2024-10-30 10:25] LABS: Abs Immature Grans 0.02 10^3/uL (0.0-0.06); Absolute Basophil Count 0.03 10^3/uL (0.0-0.2); Absolute Eosinophil Count 0.06 10^3/uL (0.0-0.7); Absolute Lymphocyte Count 0.49 10^3/uL (1.2-3.4); Absolute Monocyte Count 0.61 10^3/uL (0.1-0.8); Absolute Neutrophil Count 4.81 10^3/uL (1.2-6.7); Basophils % 0.5 %; HCT 36.2 % (40.0-50.0); HGB 11.6 g/dL (13.5-17.5); Immature Grans % 0.3 %; Lymphocytes % 8.1 %; MCH 31.1 pg (27.0-33.0); MCV 97 fL (80-95); MPV 8.5 fL (8.0-11.0); Monocytes % 10.1 %; Platelet Count 308 10^3/uL (130-400); RBC 3.73 10^6/uL (4.36-5.78); RDW 13.8 % (11.8-14.1); RDW-SD 49.3 fL; WBC 6.02 10^3/uL (4.4-10.8)
[2024-10-30 10:54] LABS: ALT 22 U/L (16-63); AST 23 U/L (15-37); Albumin 2.9 g/dL (3.4-5.0); Alkaline Phosphatase 217 U/L (46-116); Anion Gap 4.9 mmol/L (3-11); BUN 17 mg/dL (7-18); Bilirubin, Total 0.5 mg/dL (0.2-1.0); CO2 34.1 mmol/L (21.0-32.0); CREATININE 0.8 mg/dL (0.70-1.30); Chloride 94 mmol/L (98-107); Estimated GFR 89.47 (mL/min/1.73m2); FREE T4 1.03 ng/dL (0.76-1.46); Glucose 111 mg/dL (74-106); Magnesium 1.8 mg/dL (1.8-2.4); Potassium 4.9 mmol/L (3.5-5.1); Sodium 133 mmol/L (136-145); TSH 1.42 uIU/mL (0.36-3.74); Total Protein 8.1 g/dL (6.4-8.2)
== END 2024-10-30 11:35 | disposition home or self-care (01) ==
LOC: LBO 11:34
PROVIDERS: Visit Provider Nurse Practitioner Family
DX: Z79.899 Other long term (current) drug therapy (principal); C34.91 Malignant neoplasm of unspecified part of right bronchus or lung
CPT/HCPCS: 36415; 80053; 83735; 84439; 84443; 85025